=== PATIENT | female | born 1945 | race Caucasian/White ===

== ENCOUNTER 2016-12-19 20:00 | Inpatient (IN) | payer MEDICARE, OTHER ==
[2016-12-19] MEDS ORDERED: SODIUM CHLORIDE 0.9% 1,000 ML IV STA (20:17)
--- NOTE | 2016-12-19 20:22 | ED ---
General Adult HPI - General Chief complaint: Dizziness Stated complaint: heart concerns/weakness Time Seen by Provider: 12/19/16 20:07 Source: patient, RN notes reviewed, old records reviewed Mode of arrival: wheelchair Limitations: no limitations - History of Present Illness Initial comments: This is a 71-year-old female the ER for evaluation of chest pain. Patient is chest pain palpitations that occur with shortness of breath and diaphoresis occasionally starting last night. No fevers no cough no congestion. Patient has history of A. fib with ablation and multiple medication and even a pacemaker which none really seemed to help. Patient has not had an episode for about a year. Patient denies any other contributing factors no new medications no a trial of medications. - Related Data Home Medications Medication Instructions Recorded Confirmed Losartan Potassium 100 mg PO DAILY 02/05/15 09/01/16 Omeprazole [PriLOSEC] 20 mg PO AC-BRKFST 02/05/15 09/01/16 traMADol HCl [Ultram] 50 mg PO DAILY PRN 02/05/15 09/01/16 Furosemide [Lasix] 20 mg PO DAILY 09/01/16 09/01/16 Meclizine [Antivert] 25 mg PO DAILY PRN 09/01/16 09/01/16 Ondansetron [Zofran] 4 mg PO Q6H PRN 09/01/16 09/01/16 Potassium Chloride [K-Tab ER] 10 meq PO DAILY 09/01/16 09/01/16 Propafenone HCl 300 mg PO BID 09/01/16 09/01/16 Zolpidem [Ambien] 5 mg PO HS PRN 09/01/16 09/01/16 Previous Rx's Medication Instructions Recorded Cefuroxime Axetil [Ceftin] 500 mg PO BID #8 tablet 09/04/16 Allergies Allergy/AdvReac Type Severity Reaction Status Date / Time ether Allergy Anaphylaxis Verified 12/19/16 20:05 tetanus and diphtheria Allergy Unknown Verified 12/19/16 20:05 toxoids [tetanus & diphtheria toxoids] codeine AdvReac Nausea Verified 12/19/16 20:05 Review of Systems ROS Statement: Those systems with pertinent positive or pertinent negative responses have been documented in the HPI. ROS Other: All systems not noted in ROS Statement are negative. Past Medical History Past Medical History: Atrial Fibrillation, GERD/Reflux, Hyperlipidemia, Hypertension, Osteoarthritis (OA) Additional Past Medical History / Comment(s): BLADDER CANCER; Small Bowel Obstruction History of Any Multi-Drug Resistant Organisms: None Reported Past Surgical History: Ablation, Bladder Surgery, Heart Catheterization, Hernia Repair, Hysterectomy, Orthopedic Surgery, Pacemaker, Tonsillectomy Additional Past Surgical History / Comment(s): LEFT HIP SURGERY, GRAFTS AND MARNIE , CARDIOVERSION, urostomy Past Anesthesia/Blood Transfusion Reactions: Previous Problems w/ Anesthesia Additional Past Anesthesia/Blood Transfusion Reaction / Comment(s): asthma attack Type of Cardiac Device: Permanent Pacemaker Device Placement Date:: 2006 Past Psychological History: No Psychological Hx Reported Smoking Status: Former smoker Past Alcohol Use History: Rare Past Drug Use History: None Reported - Past Family History Mother Additional Family Medical History / Comment(s): divertic Father Family Medical History: Hyperlipidemia General Exam Limitations: no limitations General appearance: alert, in no apparent distress Head exam: Present: atraumatic, normocephalic, normal inspection Eye exam: Present: normal appearance, PERRL, EOMI. Absent: scleral icterus, conjunctival injection, periorbital swelling ENT exam: Present: normal exam, mucous membranes moist Neck exam: Present: normal inspection. Absent: tenderness, meningismus, lymphadenopathy Respiratory exam: Present: normal lung sounds bilaterally. Absent: respiratory distress, wheezes, rales, rhonchi, stridor Cardiovascular Exam: Present: regular rate, normal rhythm, normal heart sounds. Absent: systolic murmur, diastolic murmur, rubs, gallop, clicks GI/Abdominal exam: Present: soft, normal bowel sounds. Absent: distended, tenderness, guarding, rebound, rigid Extremities exam: Present: normal inspection, full ROM, normal capillary refill. Absent: tenderness, pedal edema, joint swelling, calf tenderness Back exam: Present: normal inspection Neurological exam: Present: alert, oriented X3, CN II-XII intact Psychiatric exam: Present: normal affect, normal mood Skin exam: Present: warm, dry, intact, normal color. Absent: rash Course Vital Signs 12/19/16 20:02 Temperature 98.0 F Pulse Rate 71 Respiratory 18 Rate Blood Pressure 136/82 O2 Sat by Pulse 98 Oximetry - Reevaluation(s) Reevaluation #1: 12/19/16 21:58 Patient still having chest pain, episodic EKG Findings - EKG Comments: EKG Findings:: EKG shows normal sinus rhythm rate of 66, NE 166, QRS 90, QTC 429 Medical Decision Making - Medical Decision Making 71 [id number] chest pain, continuing with chest pain history of A. fib with RVR, patient still chest pain to ER steak EKG and troponin are negative, patient be admitted for cardiac observation, treatment of UTI - Lab Data Result diagrams: 12/19/16 20:37 12/19/16 20:37 Lab Results 12/19/16 12/19/16 12/19/16 Range/Units 20:37 20:37 20:37 WBC 5.1 (3.8-10.6) k/uL RBC 4.52 (3.80-5.40) m/uL Hgb 12.6 (11.4-16.0) gm/dL Hct 38.3 (34.0-46.0) % MCV 84.8 (80.0-100.0) fL MCH 27.9 (25.0-35.0) pg MCHC 32.9 (31.0-37.0) g/dL RDW 13.6 (11.5-15.5) % Plt Count 249 (150-450) k/uL PT (9.0-12.0) sec INR (<1.1) APTT (22.0-30.0) sec Sodium 139 (137-145) mmol/L Potassium 4.9 (3.5-5.1) mmol/L Chloride 105 (98-107) mmol/L Carbon Dioxide 25 (22-30) mmol/L Anion Gap 9 mmol/L BUN 18 H (7-17) mg/dL Creatinine 0.89 (0.52-1.04) mg/dL Est GFR (MDRD) Af Amer >60 (>60 ml/min/1.73 sqM) Est GFR (MDRD) Non-Af >60 (>60 ml/min/1.73 sqM) Glucose 90 (74-99) mg/dL Calcium 9.6 (8.4-10.2) mg/dL Phosphorus 3.6 (2.5-4.5) mg/dL Magnesium 2.2 (1.6-2.3) mg/dL Total Bilirubin 0.7 (0.2-1.3) mg/dL AST 15 (14-36) U/L ALT 22 (9-52) U/L Alkaline Phosphatase 104 (38-126) U/L Total Creatine Kinase 36 (30-135) U/L CK-MB (CK-2) 0.6 (0.0-2.4) ng/mL CK-MB (CK-2) Rel Index 1.7 Troponin I <0.012 (0.000-0.034) ng/mL Total Protein 7.0 (6.3-8.2) g/dL Albumin 3.9 (3.5-5.0) g/dL TSH 1.590 (0.465-4.680) mIU/L Urine Color Urine Appearance (Clear) Urine pH (5.0-8.0) Ur Specific Scott (1.001-1.035) Urine Protein (Negative) Urine Glucose (UA) (Negative) Urine Ketones (Negative) Urine Blood (Negative) Urine Nitrate (Negative) Urine Bilirubin (Negative) Urine Urobilinogen (<2.0) mg/dL Ur Leukocyte Esterase (Negative) Urine RBC (0-5) /hpf Urine WBC (0-5) /hpf Ur Squamous Epith Cells (0-4) /hpf Amorphous Sediment (None) /hpf Urine Bacteria (None) /hpf 12/19/16 12/19/16 Range/Units 20:37 20:37 WBC (3.8-10.6) k/uL RBC (3.80-5.40) m/uL Hgb (11.4-16.0) gm/dL Hct (34.0-46.0) % MCV (80.0-100.0) fL MCH (25.0-35.0) pg MCHC (31.0-37.0) g/dL RDW (11.5-15.5) % Plt Count (150-450) k/uL PT 10.3 (9.0-12.0) sec INR 1.0 (<1.1) APTT 23.4 (22.0-30.0) sec Sodium (137-145) mmol/L Potassium (3.5-5.1) mmol/L Chloride (98-107) mmol/L Carbon Dioxide (22-30) mmol/L Anion Gap mmol/L BUN (7-17) mg/dL Creatinine (0.52-1.04) mg/dL Est GFR (MDRD) Af Amer (>60 ml/min/1.73 sqM) Est GFR (MDRD) Non-Af (>60 ml/min/1.73 sqM) Glucose (74-99) mg/dL Calcium (8.4-10.2) mg/dL Phosphorus (2.5-4.5) mg/dL Magnesium (1.6-2.3) mg/dL Total Bilirubin (0.2-1.3) mg/dL AST (14-36) U/L ALT (9-52) U/L Alkaline Phosphatase (38-126) U/L Total Creatine Kinase (30-135) U/L CK-MB (CK-2) (0.0-2.4) ng/mL CK-MB (CK-2) Rel Index Troponin I (0.000-0.034) ng/mL Total Protein (6.3-8.2) g/dL Albumin (3.5-5.0) g/dL TSH (0.465-4.680) mIU/L Urine Color Yellow Urine Appearance Cloudy H (Clear) Urine pH 7.5 (5.0-8.0) Ur Specific Scott 1.008 (1.001-1.035) Urine Protein Negative (Negative) Urine Glucose (UA) Negative (Negative) Urine Ketones Negative (Negative) Urine Blood Negative (Negative) Urine Nitrate Negative (Negative) Urine Bilirubin Negative (Negative) Urine Urobilinogen <2.0 (<2.0) mg/dL Ur Leukocyte Esterase Large H (Negative) Urine RBC 6 H (0-5) /hpf Urine WBC 83 H (0-5) /hpf Ur Squamous Epith Cells <1 (0-4) /hpf Amorphous Sediment Few H (None) /hpf Urine Bacteria Many H (None) /hpf - Radiology Data Radiology results: report reviewed (Chest x-ray is negative for acute disease), image reviewed Critical Care Time Critical Care Time: Yes Total Critical Care Time: 31 Disposition Clinical Impression: Chest pain, UTI (urinary tract infection) Disposition: ADMITTED IP TO THIS [facility] Condition: Good Referrals: Nita Rice MD [Primary Care Provider] - 1-2 days
--- NOTE | 2016-12-19 21:03 | XR ---
EXAMINATION TYPE: XR chest 2V DATE OF EXAM: 12/19/2016 8:56 PM COMPARISON: 02/23/2015 HISTORY: Weakness TECHNIQUE: Frontal and lateral views of the chest are obtained. FINDINGS: There is no heart failure nor confluent pneumonic infiltrate. There are no hilar masses. T horacic aorta is atheromatous. There is a left axillary pacemaker with the lead tips in the right miriam tricle. There is no pleural effusion. Bony thorax is intact. IMPRESSION: Atheromatous aorta. Hiatal hernia. No active cardiopulmonary disease. No change.
[2016-12-19 21:18] LABS: ALT 22 U/L (9-52); AST 15 U/L (14-36); Alkaline Phosphatase 104 U/L (38-126); Amorphous Sediment,Urine Few /hpf; Anion Gap 9 mmol/L; Appearance,Urine Cloudy (Clear); Bacteria,Urine Many /hpf; Bilirubin,Urine Negative (Negative); Blood Urea Nitrogen 18 mg/dL (7-17); Calcium 9.6 mg/dL (8.4-10.2); Carbon Dioxide 25 mmol/L (22-30); Chloride 105 mmol/L (98-107); Glucose 90 mg/dL (74-99); Glucose,Urine (UA) Negative (Negative); Ketones,Urine Negative (Negative); Leukocyte Esterase,Urine Large (Negative); Magnesium 2.2 mg/dL (1.6-2.3); Nitrite,Urine Negative (Negative); Non-African American GFR(MDRD) >60 (>60 ml/min/1.73 sqM); PH, Urine 7.5 (5.0-8.0); Particle Count 26166; Phosphorous 3.6 mg/dL (2.5-4.5); Potassium 4.9 mmol/L (3.5-5.1); Protein,Urine Negative (Negative); RBC,Urine 6 /hpf (0-5); Sodium 139 mmol/L (137-145); Specific Gravity,Urine 1.008 (1.001-1.035); Squamous Epithelial Cell,Urine <1 /hpf (0-4); Total Bilirubin 0.7 mg/dL (0.2-1.3); UA Billing (MACRO vs. MICRO) MICRO; Urobilinogen,Urine <2.0 mg/dL (<2.0); WBC,Urine 83 /hpf (0-5)
[2016-12-19 21:23] LABS: Creatine Kinase 36 U/L (30-135)
[2016-12-19 21:32] LABS: Aty Lym Flag Slight; CH 27.4; CHCM 32.4; HCT 38.3 % (34.0-46.0); HDW 2.69; HGB 12.6 gm/dL (11.4-16.0); MCH 27.9 pg (25.0-35.0); MCHC 32.9 g/dL (31.0-37.0); MCV 84.8 fL (80.0-100.0); Mean Platelet Volume 8.1; RBC 4.52 m/uL (3.80-5.40); RDW 13.6 % (11.5-15.5); WBC 5.1 k/uL (3.8-10.6); WBC (Perox) 5.17
[2016-12-19 21:36] LABS: Creatine Kinase MB 0.6 ng/mL (0.0-2.4); Troponin I <0.012 ng/mL (0.000-0.034)
[2016-12-19 21:48] LABS: Partial Thromboplastin Time 23.4 sec (22.0-30.0); Prothrombin Time 10.3 sec (9.0-12.0)
[2016-12-19] MEDS ORDERED: NITROGLYCERIN SL TABS 0.4 MG TAB SUBLINGUAL PRN (21:55)
[2016-12-19] MEDS ORDERED: HEPARIN SODIUM,PORCINE 5,000 UNIT/ML 1 ML VIAL IV ONE (21:55)
[2016-12-19] MEDS ORDERED: HEPARIN SODIUM,PORCINE 5,000 UNIT/ML 1 ML VIAL IV PRN (21:55)
[2016-12-19] MEDS ORDERED: ASPIRIN 81 MG CHEW PO STA (21:55)
[2016-12-19] MEDS ORDERED: HEPARIN SODIUM,PORCINE/D5W PMX 25,000 UNIT in DEXTROSE/WATER 1 500ML.BAG IV SCH (22:00)
[2016-12-19 22:07] LABS: Add Differential Manual Differential
[2016-12-19 22:09] LABS: Manual Review Performed; Nucleated Red Blood Cells 0 /100 WBC (0-0); RBC Morphology Normal; Total Cells Counted 100
[2016-12-19] MEDS: SODIUM CHLORIDE 0.9% 1,000 ML IV SCH (22:42)
[2016-12-20 03:56] LABS: Mean Platelet Volume 7.4
[2016-12-20 04:19] LABS: Cholesterol 206 mg/dL (<200); Creatine Kinase 30 U/L (30-135); HDL Cholesterol 49 mg/dL (40-60); Triglycerides 144 mg/dL (<150)
[2016-12-20 04:33] LABS: Creatine Kinase MB 0.5 ng/mL (0.0-2.4); Troponin I <0.012 ng/mL (0.000-0.034)
[2016-12-20 09:53] LABS: Creatine Kinase 29 U/L (30-135)
[2016-12-20 10:07] LABS: Creatine Kinase MB 0.4 ng/mL (0.0-2.4); Troponin I <0.012 ng/mL (0.000-0.034)
--- NOTE | 2016-12-20 11:29 | P.CRDCN ---
History of Present Illness Consult date: 12/20/16 Reason for Consult (text): Chest pain Chief complaint: palpitations, pressure, lightheadedness, nausea History of present illness: This is a pleasant 71-year-old female with a known history of SVT, status post ablation, pacemaker placement, hyperlipidemia, hypertension, bladder CA, urostomy. Presented with complaints of feeling a pressure type palpitation around her heart with lightheadedness, nausea, slight shortness of breath and hearing a pounding in her ear. Chest x-ray on admission showed no acute process. EKG done showed sinus rhythm with incomplete right bundle branch block. Laboratory values show a BUN of 18, creatinine 0.89, troponins less than 0.0123 and an LDL of 128. Patient has been started on atorvastatin 80 mg by mouth daily. she is also been initiated on IV heparin drip. Upon examination , patient is resting comfortably in bed. She does complain of feeling occasional palpitations. Rhythm strips show sinus rhythm with PACs. Past Medical History Past Medical History: Atrial Fibrillation, Cancer, GERD/Reflux, Hyperlipidemia, Hypertension, Osteoarthritis (OA) Additional Past Medical History / Comment(s): bladder cancer with urostomy, Small Bowel Obstruction History of Any Multi-Drug Resistant Organisms: None Reported Past Surgical History: Ablation, Bladder Surgery, Heart Catheterization, Hernia Repair, Hysterectomy, Orthopedic Surgery, Pacemaker, Tonsillectomy Additional Past Surgical History / Comment(s): LEFT HIP SURGERY x 3, GRAFTS AND MARNIE, CARDIOVERSION, urostomy Past Anesthesia/Blood Transfusion Reactions: Previous Problems w/ Anesthesia Additional Past Anesthesia/Blood Transfusion Reaction / Comment(s): asthma attack Type of Cardiac Device: Permanent Pacemaker Device Placement Date:: 2006 Past Psychological History: No Psychological Hx Reported Smoking Status: Former smoker Past Alcohol Use History: Rare Past Drug Use History: None Reported - Past Family History Mother Additional Family Medical History / Comment(s): divertic Father Family Medical History: Hyperlipidemia Medications and Allergies Home Medications Medication Instructions Recorded Confirmed Type Losartan Potassium 100 mg PO DAILY 02/05/15 09/01/16 History Omeprazole [PriLOSEC] 20 mg PO AC-BRKFST 02/05/15 09/01/16 History traMADol HCl [Ultram] 50 mg PO DAILY PRN 02/05/15 09/01/16 History Furosemide [Lasix] 20 mg PO DAILY 09/01/16 09/01/16 History Meclizine [Antivert] 25 mg PO DAILY PRN 09/01/16 09/01/16 History Ondansetron [Zofran] 4 mg PO Q6H PRN 09/01/16 09/01/16 History Potassium Chloride [K-Tab ER] 10 meq PO DAILY 09/01/16 09/01/16 History Propafenone HCl 300 mg PO BID 09/01/16 09/01/16 History Zolpidem [Ambien] 5 mg PO HS PRN 09/01/16 09/01/16 History Metoprolol Tartrate [Lopressor] 25 mg PO DAILY 12/20/16 12/20/16 History Allergies Allergy/AdvReac Type Severity Reaction Status Date / Time ether Allergy Anaphylaxis Verified 12/19/16 20:05 tetanus and diphtheria Allergy Unknown Verified 12/19/16 20:05 toxoids [tetanus & diphtheria toxoids] codeine AdvReac Nausea Verified 12/19/16 20:05 Physical Exam Vitals: Vital Signs Temp Pulse Pulse Resp BP BP Pulse Ox 12/20/16 07:54 98.6 F 64 16 133/67 95 12/20/16 04:00 98.5 F 62 18 118/67 97 12/20/16 00:00 62 16 12/19/16 23:46 98.2 F 64 18 142/86 97 12/19/16 22:38 98.2 F 69 18 139/78 97 Intake and Output 12/19/16 12/20/16 12/20/16 22:59 06:59 14:59 Intake Total 1310 Output Total 550 Balance 760 Intake: Intake, IV Titration 1310 Amount Heparin Sodium,Porcine/ 150 D5w Pmx 25,000 unit In Dextrose/Water 1 500ml. bag @ 12 UNITS/KG/HR 17. 96 mls/hr IV .Q24H ANGEL Rx #:[id number] Sodium Chloride 0.9% 1, 1160 000 ml @ 100 mls/hr IV . Q10H ANGEL Rx#:[id number] Output: Urine 550 Other: Weight 86.5 kg PHYSICAL EXAMINATION: HEENT: [Head is atraumatic, normocephalic. Pupils equal, round. Neck is supple. There is no elevated jugular venous pressure.] HEART EXAMINATION: [Heart sounds regular, S1 and S2 normal. No murmur or gallop heard.] CHEST EXAMINATION:[ Lungs are clear to auscultation and precussion. No chest wall tenderness is noted on palpation or with deep breathing.] ABDOMEN: [ Soft, nontender. Bowel sounds are heard. No organomegaly noted]. EXTREMITIES:[ 2+ peripheral pulses with no evidence of peripheral edema and no calf tenderness noted]. NEUROLOGIC [patient is awake, alert and oriented x3.] . Results 12/20/16 03:38 12/19/16 20:37 Cardiac Enzymes 12/20/16 12/20/16 Range/Units 03:38 09:09 CK-MB (CK-2) 0.5 0.4 (0.0-2.4) ng/mL Troponin I <0.012 <0.012 (0.000-0.034) ng/mL Coagulation 12/20/16 Range/Units 03:38 APTT 32.2 H (22.0-30.0) sec Lipids 12/20/16 Range/Units 03:38 Triglycerides 144 (<150) mg/dL Cholesterol 206 H (<200) mg/dL HDL Cholesterol 49 (40-60) mg/dL CBC 12/20/16 Range/Units 03:38 Plt Count 217 (150-450) k/uL Current Medications Generic Name Dose Route Start Last Admin Trade Name Freq PRN Reason Stop Dose Admin Aspirin 325 mg 12/20/16 09:00 Aspirin PO DAILY [facility] Atorvastatin Calcium 80 mg 12/20/16 09:00 Lipitor PO DAILY [facility] Heparin Sodium (Porcine) 0 unit 12/19/16 21:55 Heparin IV Q6HR PRN Low PTT Protocol Heparin Sodium/Dextrose 25,000 500 mls @ 17.96 mls/hr 12/19/16 22:00 22:44 unit/ IV Solution IV 12 units/kg/hr .Q24H ANGEL 17.96 mls/hr Protocol Administration 12 UNITS/KG/HR Sodium Chloride 1,000 mls @ 100 mls/hr 12/19/16 22:00 12/19/16 22:42 Saline 0.9% IV 100 mls/hr .Q10H ANGEL Administration Ceftriaxone Sodium 1,000 mg/ 50 mls @ 100 mls/hr 12/20/16 11:00 Sodium Chloride IVPB Q24HR [facility] Nitroglycerin 0.4 mg 12/19/16 21:55 Nitrostat SUBLINGUAL Q5M PRN Chest Pain Intake and Output 12/19/16 12/20/16 12/20/16 22:59 06:59 14:59 Intake Total 1310 Output Total 550 Balance 760 Intake: Intake, IV Titration 1310 Amount Heparin Sodium,Porcine/ 150 D5w Pmx 25,000 unit In Dextrose/Water 1 500ml. bag @ 12 UNITS/KG/HR 17. 96 mls/hr IV .Q24H [facility] Rx #:[id number] Sodium Chloride 0.9% 1, 1160 000 ml @ 100 mls/hr IV . Q10H [facility] Rx#:[id number] Output: Urine 550 Other: Weight 86.5 kg 12/20/16 03:38 Assessment and Plan Plan: assessment and plan #1 palpitations, appear to be PACs #2 symptoms of chest discomfort with lightheadedness and nausea, troponins negative 3 #3 UTI #4 hyperlipidemia #5 history of pacemaker implant From cardiology's perspective, we will obtain a 2-D echo. Stop IV heparin. We will resume patient's propafenone and increase metoprolol to 25 mg by mouth twice a day. We will continue to follow the patient and provide further recommendations accordingly. [employer] note has been reviewed, I agree with a documented findings and plan of care. Patient was seen and examined.
[2016-12-20] MEDS: METOPROLOL TARTRATE 25 MG TAB PO SCH ×2 (12:38→20:55)
[2016-12-20] MEDS: PROPAFENONE 150 MG TAB PO SCH ×2 (12:38→20:54)
[2016-12-20] MEDS ORDERED: MECLIZINE 25 MG TAB PO PRN (13:30)
[2016-12-20] MEDS ORDERED: ZOLPIDEM 5 MG TAB PO PRN (13:30)
[2016-12-20] MEDS ORDERED: ONDANSETRON 4 MG TAB PO PRN (13:30)
[2016-12-20] MEDS ORDERED: traMADol 50 MG TAB PO PRN (13:30)
[2016-12-20] MEDS ORDERED: PROPAFENONE HCL 300 MG PO SCH (13:30)
[2016-12-20] MEDS: POTASSIUM CHLORIDE ER 10 MEQ TAB.ER.PRT PO SCH (14:36)
[2016-12-20] MEDS: ATORVASTATIN 80 MG TAB PO SCH (14:36)
[2016-12-20] MEDS: FUROSEMIDE 20 MG TAB PO SCH (14:36)
[2016-12-20] MEDS: ASPIRIN 325 MG TAB PO SCH (14:37)
[2016-12-20] MEDS: LOSARTAN 50 MG TAB PO SCH (14:37)
--- NOTE | 2016-12-20 16:12 | HP ---
DATE OF ADMISSION: CHIEF COMPLAINT: Chest pain, UTI. HISTORY OF PRESENT ILLNESS: This 71-year-old woman with a past history of multiple medical problems including atrial fibrillation, history of GERD, hypertension, hyperlipidemia, history of DJD, history of cardiac ablation, history of cardiac catheterization being followed by Dr. Rice in the outpatient setting is complaining of chest pain. The pain is felt mostly in the anterior part of the chest, which is pressure type of character. The patient also feeling skipped beats. Patient also had some palpitation, lightheaded and nausea along with the feeling and the patient came to the [facility] and admitted for further evaluation. The EKG showed multiple ectopic, possibly PACs; almost in the form of bigeminy. The patient admitted for further evaluation. There is no history of any fever, rigors. No history of headache, loss of consciousness or seizures. As mentioned earlier, patient is receiving IV antibiotics for possible UTI. PAST MEDICAL HISTORY: History of atrial fibrillation, history of GERD, hypertension, hyperlipidemia, history of DJD, history of bladder cancer with urostomy, ablation, cardiac catheterization. Medications prior to admission include the home medications are: 1. Ultram 50 mg daily p.r.n. 2. Ambien 5 mg q.h.s. p.r.n. 3. Propafenone 300 mg p.o. b.i.d. 4. K-Tab ER 10 mEq p.o. daily. 5. Zofran 4 mg q.6 p.r.n. 6. Prilosec 20 mg p.o. q.48 hours. 7. Lopressor 25 mg p.o. daily. 8. Antivert 25 mg daily p.r.n. 9. Losartan 100 mg p.o. daily. 10. Lasix 20 mg p.o. daily. Allergies are ETHER, TETANUS and DIPHTHERIA TOXOIDS and CODEINE. FAMILY HISTORY: History of hyperlipidemia, history of diverticulosis, diverticulitis. SOCIAL HISTORY: Previous history of smoking. No history of current smoking or alcohol intake. REVIEW OF SYSTEMS: ENT: No diminished hearing or diminished vision. CARDIOVASCULAR: As mentioned earlier. RESPIRATORY: As mentioned earlier. GI: As mentioned earlier.. : No dysuria. NERVOUS SYSTEM: No numbness or weakness. ALLERGY/IMMUNOLOGY: No asthma or hayfever. MUSCULOSKELETAL: As mentioned earlier. HEMATOLOGICAL: No history of anemia. ENDOCRINE: No history of diabetes, hypothyroidism. CONSTITUTIONAL: As mentioned earlier. DERMATOLOGY: Negative. RHEUMATOLOGICAL: Negative. PSYCHIATRY: As mentioned earlier.. PHYSICAL EXAMINATION: The patient is alert and oriented x3. Pulse 76, blood pressure 153/79, respirations 18, temperature 98.5, pulse ox 95% on room air. HEENT: Conjunctivae normal. Oral mucosa moist. NECK: No jugular venous distention. No carotid bruit. No lymph node enlargement. CARDIOVASCULAR: S1 and S2, muffled. No S3, no S4. RESPIRATORY: Breath sounds diminished at the bases. Bilateral scattered rhonchi and crackles. Respiratory wheezing also present. ABDOMEN: Soft, nontender. No mass palpable. LEGS: No edema, no swelling. NERVOUS SYSTEM: Higher function as mentioned. Moves all 4 limbs. No focal motor or sensory deficits. LYMPHATICS: No lymphadenopathy of neck, axillae or groin. SKIN: No ulcers, rashes or bleeding. Labs are CBC within normal limits. INR is 1. BUN is 18. Cholesterol is 206, LDL is 128. UA noted, 83 WBCs. ASSESSMENT: 1. Chest pain, possible angina. 2. Hyperlipidemia. 3. Acute urinary tract infection, present on admission. 4. Status post bladder resection for bladder cancer, urostomy. 5. History of atrial fibrillation. 6. History of gastroesophageal reflux disease. 7. Hypertension. 8. Hyperlipidemia. 9. History of degenerative joint disease. 10. History of small bowel obstruction. 11. History of cardiac catheterization. 12. History of pacemaker. 13. Remote history nicotine dependence. 14. History of multiple episodes of partial small bowel obstruction. 15. History of asthma. 16. History of supraventricular tachycardia. 17. FULL CODE. RECOMMENDATIONS AND DISCUSSION: This 71-year-old woman who presented with multiple complex medical issues, will monitor the patient closely. Continue the current medications. Continue symptomatic treatment. Will obtain a cardiology consultation, workup also. Otherwise, continue to monitor and the electrolytes are being monitored. The patient also had hyperlipidemia. Patient is on Lipitor currently. Prognosis guarded because of multiple complex medical issues. Further recommendations to follow. A copy of dictation forwarded to Dr. Rice who is the primary physician. [facility] CENTER[facility]iri
[2016-12-20] MEDS: SODIUM CHLORIDE 0.9% 1,000 ML IV SCH ×2 (19:34)
[2016-12-21] MEDS: SODIUM CHLORIDE 0.9% 1,000 ML IV SCH (05:08)
[2016-12-21 07:30] LABS: Basophils % (A) 1 %; CH 27.3; CHCM 31.5; Eosinophils # (A) 0.2 k/uL (0-0.7); Eosinophils % (A) 3 %; HCT 34.8 % (34.0-46.0); HDW 2.66; HGB 11.1 gm/dL (11.4-16.0); Hypochromasia Slight; Luc # (Auto) 0.24; Luc % (Auto) 4; Lymphocytes # (A) 0.9 k/uL (1.0-4.8); Lymphocytes % (A) 16 %; MCH 27.8 pg (25.0-35.0); MCHC 31.9 g/dL (31.0-37.0); MCV 87.1 fL (80.0-100.0); Mean Platelet Volume 8.6; Monocytes # (A) 0.4 k/uL (0-1.0); Monocytes % (A) 6 %; Neutrophils % (A) 70 %; RDW 13.6 % (11.5-15.5); WBC 5.8 k/uL (3.8-10.6); WBC (Perox) 6.17
[2016-12-21] MEDS ORDERED: PANTOPRAZOLE 40 MG TABLET PO SCH (07:30)
[2016-12-21 07:48] VITALS: RESP 16
[2016-12-21 07:55] LABS: Anion Gap 9 mmol/L; Blood Urea Nitrogen 22 mg/dL (7-17); Calcium 9.2 mg/dL (8.4-10.2); Carbon Dioxide 21 mmol/L (22-30); Chloride 108 mmol/L (98-107); Glucose 96 mg/dL (74-99); Non-African American GFR(MDRD) >60 (>60 ml/min/1.73 sqM); Potassium 5.2 mmol/L (3.5-5.1); Sodium 138 mmol/L (137-145)
[2016-12-21] MEDS: PROPAFENONE 150 MG TAB PO SCH (08:27)
[2016-12-21] MEDS: ATORVASTATIN 80 MG TAB PO SCH (08:28)
[2016-12-21] MEDS: FUROSEMIDE 20 MG TAB PO SCH (08:28)
[2016-12-21] MEDS: LOSARTAN 50 MG TAB PO SCH (08:28)
[2016-12-21] MEDS: ASPIRIN 325 MG TAB PO SCH (08:28)
[2016-12-21] MEDS: POTASSIUM CHLORIDE ER 10 MEQ TAB.ER.PRT PO SCH (08:28)
[2016-12-21] MEDS: METOPROLOL TARTRATE 25 MG TAB PO SCH (08:28)
--- NOTE | 2016-12-21 10:31 | P.PN ---
Subjective This is a pleasant 71-year-old female with a known history of SVT, status post ablation, pacemaker placement, hyperlipidemia, hypertension, bladder CA, urostomy. Presented with complaints of feeling a pressure type palpitations. EKG revealed sinus rhythm with incomplete right bundle branch block pattern. Patient was also noted to have PACs on the monitor. Rythmol was resumed yesterday and patient's dose of metoprolol tartrate was increased. She has had no further episodes of PACs on the monitor, she feels well this morning. Denies any palpitations, no chest discomfort. She did have some mild nausea through the night. Objective - Vital Signs Vital signs: Vital Signs Temp 97.9 F 12/21/16 07:47 Pulse 65 12/21/16 07:47 Resp 16 12/21/16 07:47 BP 129/62 12/21/16 07:47 Pulse Ox 95 12/21/16 07:47 Intake & Output 12/20/16 12/21/16 12/21/16 17:59 06:59 18:59 Intake Total 240 Balance 240 Intake: Oral 240 Other: Voiding Method Ileal Conduit (Right) - Exam PHYSICAL EXAMINATION: HEENT: Head is atraumatic, normocephalic. Pupils equal, round. Neck is supple. There is no elevated jugular venous pressure. HEART EXAMINATION: Heart S1, S2 normal. No murmur or gallop heard. CHEST EXAMINATION: Lungs are clear to auscultation and precussion. No chest wall tenderness is noted on palpation or with deep breathing. ABDOMEN: Soft, nontender. Bowel sounds are heard. No organomegaly noted. EXTREMITIES: 2+ peripheral pulses with no evidence of peripheral edema and no calf tenderness noted. NEUROLOGIC patient is awake, alert and oriented -3. . - Labs CBC & Chem 7: 12/21/16 06:24 12/21/16 06:24 Assessment and Plan (1) PAC (premature atrial contraction) Status: Acute (2) HTN (hypertension) Status: Acute (3) Hyperlipemia Status: Acute (4) UTI (urinary tract infection) Status: Acute (5) Pacemaker Status: Acute (6) Chest pain Status: Acute Plan: From cardiology's perspective, patient may be able to be discharged home today. We will make her a follow-up appointment to see Dr. VC Abreu in the office post discharge. She will continue on the current dose of Rythmol along with metoprolol tartrate 25 mg one tablet by mouth twice a day and the other medications she came in on. DNP note has been reviewed, I agree with a documented findings and plan of care. Patient was seen and examined.
[2016-12-21 11:42] VITALS: BP 106/74; PULSE 60; TEMP 98.3
[2016-12-22] MEDS ORDERED: ASPIRIN 81 MG CHEW PO SCH (09:00)
--- NOTE | 2016-12-22 11:19 | DS ---
DATE OF ADMISSION: 12/21/2016 DATE OF DISCHARGE: 12/21/2016 DATE OF SERVICE: 12/21/2016 FINAL DIAGNOSES: 1. Chest pain, possible unstable angina, myocardial infarction ruled out. 2. Hyperlipidemia. 3. Acute urinary tract infection present on admission. 4. Status post bladder resection for bladder cancer urostomy. 5. History of atrial fibrillation, rate controlled. 6. History of gastroesophageal reflux disease. 7. Hypertension. 8. Hyperlipidemia. 9. History of degenerative joint disease. 10. History of small bowel obstruction. 11. History of cardiac catheterization. 12. History of pacemaker. 13. Remote history of nicotine dependence. 14. History of multiple episodes of partial small bowel obstruction. 15. History of asthma. 16. History of supraventricular tachycardia. 17. FULL CODE. DISCHARGE DISPOSITION: The patient will be discharged in a stable condition with guarded prognosis. Cardiology cleared the patient for discharge. HISTORY OF PRESENT ILLNESS: In this 71-year-old woman with a past medical history of multiple medical problems being followed by Dr. Rice in the outpatient setting admitted with the chest pain and UTI. Treated symptomatically. Cardiology saw the patient. Recommended outpatient followup. On exam, vitals are stable. CARDIOVASCULAR SYSTEM: S1, S2 muffled. RESPIRATORY: Breath sounds diminished at the bases. ABDOMEN: Soft. NERVOUS SYSTEM: No focal deficits. DISCHARGE ADVICE: 1. Diet is cardiac. 2. Activity limited until followup. 3. Followup with Cardiology as advised for possible stress test outpatient. 4. Follow up with Dr. Rice in 2 to 3 days. MEDICATIONS: 1. Aspirin 81 mg p.o. daily. 2. Lipitor 40 mg p.o. daily. 3. Ceftin 500 mg p.o. b.i.d. for 4 more days. 4. Lasix 20 mg p.o. daily. 5. Losartan 100 mg p.o. daily. 6. Antivert 25 mg daily p.r.n. 7. Lopressor 25 mg p.o. b.i.d. 8. Prilosec 20 mg p.o. q.48 hours. 9. Zofran 4 mg q.6 p.r.n. 10. K-Tab ER 10 mEq p.o. daily. 11. Propafenone 300 mg p.o. b.i.d. 12. Ambien 5 mg q.h.s. p.r.n. 13. Ultram 50 mg p.o. daily. Once again, the patient will be discharged in a stable condition with guarded prognosis.
--- NOTE | 2016-12-22 11:58 | ECHOF ---
Referral Reason:cpp MEASUREMENTS -------- HEIGHT: 162.6 cm WEIGHT: 89.8 kg BP: IVSd: 1.2 cm (0.6 - 1.1) LVIDd: 4.4 cm (3.9 - 5.3) LVPWd: 1.1 cm (0.6 - 1.1) IVSs: 1.3 cm LVIDs: 3.8 cm LVPWs: 1.0 cm LA Diam: 4.4 cm (2.7 - 3.8) LAESV Index (A-L): 30.74 ml/m Ao Diam: 3.2 cm (2.0 - 3.7) AV Cusp: 2.0 cm (1.5 - 2.6) LA Diam: 4.5 cm (2.7 - 3.8) MV EXCURSION: 19.436 mm (> 18.000) MV EF SLOPE: 89 mm/s (70 - 150) EPSS: 0.6 cm MV E Donell: 0.62 m/s MV DecT: 206 ms MV A Donell: 0.76 m/s MV E/A Ratio: 0.81 RAP: 5.00 mmHg RVSP: 39.21 mmHg FINDINGS -------- Sinus rhythm. This was a technically adequate study. There is mild concentric left ventricular hypertrophy. Overall left ventricular systolic function is normal with, an EF between 55 - 60 %. The right ventricle is normal in size. LA is moderately dilated 34-39 ml/m2 The right atrial size is normal. There is mild aortic valve sclerosis. There is no evidence of aortic regurgitation. Mild mitral annular calcification present. Mild mitral regurgitation is present. Mild tricuspid regurgitation present. There is mild pulmonary hypertension. The right ventricular systolic pressure, as measured by Doppler, is 39.21mmHg. There is no pulmonic regurgitation present. The aortic root size is normal. There is no pericardial effusion. CONCLUSIONS -------- 1. There is mild concentric left ventricular hypertrophy. 2. Overall left ventricular systolic function is normal with, an EF between 55 - 60 %. 3. LA is moderately dilated 34-39 ml/m2 4. There is mild aortic valve sclerosis. 5. Mild mitral annular calcification present. 6. Mild mitral regurgitation is present. 7. Mild tricuspid regurgitation present. 8. There is mild pulmonary hypertension. 9. The right ventricular systolic pressure, as measured by Doppler, is 39.21mmHg. DOT NET ARCHITECT: Liliane Castillo RDCS
== END 2016-12-21 14:32 | disposition home or self-care (01) | DRG 311 ==
LOC: EC 20:00 → 3OBS 21:55 → OBSVTOIN 12-21 07:59
PROVIDERS: ADMIT Hospitalist; ATTEND Hospitalist
DX: I20.0 Unstable angina (principal); I48.91 Unspecified atrial fibrillation; N39.0 Urinary tract infection, site not specified; Z93.6 Other artificial openings of urinary tract status; I10 Essential (primary) hypertension; I45.10 Unspecified right bundle-branch block; E78.5 Hyperlipidemia, unspecified; I49.1 Atrial premature depolarization; J45.909 Unspecified asthma, uncomplicated; K21.9 Gastro-esophageal reflux disease without esophagitis; Z79.899 Other long term (current) drug therapy; Z85.068 Personal history of other malignant neoplasm of small intestine; Z85.51 Personal history of malignant neoplasm of bladder; Z87.891 Personal history of nicotine dependence; Z95.0 Presence of cardiac pacemaker; Z88.4 Allergy status to anesthetic agent; Z88.5 Allergy status to narcotic agent; Z88.7 Allergy status to serum and vaccine
CPT/HCPCS: 36415; 71020; 80048; 80053; 80061; 81001; 82550; 82553; 83735; 84100; 84443; 84484; 85025; 85049; 85610; 85730; 87077; 87086; 87186; 93005; 93306; 96361; 96365; 96366; 96367; 96368; 96376; 99291

== ENCOUNTER 2018-10-22 22:34 | Inpatient (IN) | payer MEDICARE, OTHER ==
[2018-10-22] MEDS ORDERED: ONDANSETRON 4 MG/2 ML VIAL IVP STA (23:20)
[2018-10-22] MEDS ORDERED: SODIUM CHLORIDE 0.9% 500 ML 500 ML IV STA (23:20)
[2018-10-22] MEDS: MORPHINE SULFATE 4 MG/ML SYRINGE IV STA (23:33)
[2018-10-22 23:51] LABS: Basophils # (A) 0.1 k/uL (0-0.2); Basophils % (A) 0 %; Eosinophils # (A) 0.2 k/uL (0-0.7); Eosinophils % (A) 2 %; HCT 38.8 % (34.0-46.0); HGB 12.5 gm/dL (11.4-16.0); Lymphocytes # (A) 0.9 k/uL (1.0-4.8); Lymphocytes % (A) 8 %; MCH 27.4 pg (25.0-35.0); MCHC 32.3 g/dL (31.0-37.0); MCV 84.8 fL (80.0-100.0); Mean Platelet Volume 7.5; Monocytes # (A) 0.5 k/uL (0-1.0); Monocytes % (A) 5 %; Neutrophils # (A) 8.9 k/uL (1.3-7.7); Neutrophils % (A) 82 %; Platelet Count 256 k/uL (150-450); RBC 4.57 m/uL (3.80-5.40); RDW 13.7 % (11.5-15.5); WBC 10.8 k/uL (3.8-10.6)
[2018-10-23 00:06] LABS: Albumin 4.1 g/dL (3.5-5.0); Calcium 10.2 mg/dL (8.4-10.2); Potassium 4.8 mmol/L (3.5-5.1); Total Bilirubin 0.7 mg/dL (0.2-1.3); Total Protein 7.4 g/dL (6.3-8.2)
[2018-10-23 00:21] LABS: Appearance,Urine Cloudy (Clear); Bacteria,Urine Rare /hpf; Bilirubin,Urine Negative (Negative); Blood,Urine Negative (Negative); Color,Urine Light Yellow; Glucose,Urine (UA) Negative (Negative); Hyaline Casts,Urine 3 /lpf (0-2); Ketones,Urine Negative (Negative); Leukocyte Esterase,Urine Negative (Negative); Nitrite,Urine Positive (Negative); Protein,Urine Negative (Negative); RBC,Urine 2 /hpf (0-5); Specific Gravity,Urine 1.009 (1.001-1.035); Urobilinogen,Urine <2.0 mg/dL (<2.0); WBC,Urine 6 /hpf (0-5)
--- NOTE | 2018-10-23 00:55 | CT ---
EXAMINATION TYPE: CT abdomen pelvis w con DATE OF EXAM: 10/23/2018 COMPARISON: 09/01/2016 HISTORY: Lower abd pain CT DLP: 1062.3 mGycm Automated exposure control for dose reduction was used. TECHNIQUE: Helical acquisition of images was performed from the lung bases through the pelvis. CONTRAST: Performed without Oral Contrast and with IV Contrast, patient injected with 80 mL of Isovue 300. FINDINGS: There is moderate hiatal hernia. There is minimal subsegmental atelectasis at the right lung base. Th ere is no pleural effusion. Heart size is normal. Liver shows no focal defect. Gallbladder appears normal. Bile ducts are not dilated. Spleen appears n ormal. There is no pancreatic mass. There is 2.6 cm mass on the left adrenal gland that has intermediate to high attenuation. Right adren al gland appears normal. There is significant cortical thinning right kidney. There is right-sided mi ld hydronephrosis. There is ileal conduit. The left kidney has normal size and contour with no hydron ephrosis. The delayed images show contrast in both kidneys and more on the left side. There is no ret roperitoneal adenopathy. There are some mildly distended fluid-filled loops of small bowel in the mid abdomen. These are dilated up to 3.5 cm. There fecal pattern large bowel is fairly normal. There is no free fluid in the pelvis. I see no free air. There are few sigmoid diverticula without evidence of diverticulitis. There is no mesenteric edema. The distal small bowel is not dilated. There is a gomez sition point of the small bowel at the suture Site of anastomosis and suture in the mid abdomen on ax ial image 53. I see no focal bony destructive process. There is significant hip dysplasia on the right side with shallow acetabulum and deformity. There is left hip prosthesis. IMPRESSION: DILATED SMALL BOWEL SUGGESTIVE OF PARTIAL MECHANICAL OBSTRUCTION . THIS IS SIMILAR IN APPEARANCE TO O LD CT SCAN. NO FREE AIR. NO CHANGE IN THE APPEARANCE OF THE KIDNEYS COMPARED TO OLD EXAM. Left adrena l mass unchanged that suggest benign disease.
--- NOTE | 2018-10-23 01:29 | ED ---
Abdominal Pain HPI - General Chief Complaint: Abdominal Pain Stated Complaint: Abdominal Pain Time Seen by Provider: 10/22/18 23:13 Source: patient Mode of arrival: EMS Limitations: no limitations - History of Present Illness Initial Comments: 72-year-old female patient presents to the emergency department today for evaluation of upper abdominal pain and vomiting. Patient states that symptoms started earlier today. States that she has now passed gas in the last several hours. States that she did have a bowel movement this morning that was normal for her. The patient states she does have history of small bowel obstruction and this feels similar to when she had the past. She denies any fevers or chills. She does have urostomy that she has had infection in the past. Patient denies any recent rash, shortness breath, chest pain, diarrhea, constipation, back pain, numbness, tingling, dizziness, weakness, hematuria, headache, visual changes, or any other complaints. - Related Data Home Medications Medication Instructions Recorded Confirmed Losartan Potassium 100 mg PO DAILY 02/05/15 10/22/18 Omeprazole [PriLOSEC] 20 mg PO Q48H 02/05/15 10/22/18 traMADol HCl [Ultram] 50 mg PO DAILY PRN 02/05/15 10/22/18 Furosemide [Lasix] 20 mg PO BID 09/01/16 10/22/18 Meclizine [Antivert] 25 mg PO DAILY PRN 09/01/16 10/22/18 Ondansetron [Zofran] 4 mg PO Q6H PRN 09/01/16 10/22/18 Potassium Chloride [K-Tab ER] 10 meq PO DAILY 09/01/16 10/22/18 Propafenone HCl 150 mg PO BID 09/01/16 10/22/18 Zolpidem [Ambien] 5 mg PO HS PRN 09/01/16 10/22/18 Previous Rx's Medication Instructions Recorded Metoprolol Tartrate [Lopressor] 25 mg PO BID #60 tab 12/21/16 Allergies Allergy/AdvReac Type Severity Reaction Status Date / Time ether Allergy Anaphylaxis Verified 10/22/18 22:44 tetanus and diphtheria Allergy Unknown Verified 10/22/18 22:44 toxoids [tetanus & diphtheria toxoids] codeine AdvReac Nausea Verified 10/22/18 22:44 Review of Systems ROS Statement: Those systems with pertinent positive or pertinent negative responses have been documented in the HPI. ROS Other: All systems not noted in ROS Statement are negative. Past Medical History Past Medical History: Atrial Fibrillation, Cancer, GERD/Reflux, Hyperlipidemia, Hypertension, Osteoarthritis (OA) Additional Past Medical History / Comment(s): bladder cancer with urostomy, Small Bowel Obstruction, vertigo History of Any Multi-Drug Resistant Organisms: None Reported Past Surgical History: Ablation, Bladder Surgery, Heart Catheterization, Hernia Repair, Hysterectomy, Orthopedic Surgery, Pacemaker, Tonsillectomy Additional Past Surgical History / Comment(s): LEFT HIP SURGERY x 3, GRAFTS AND MARNIE, CARDIOVERSION, urostomy Past Anesthesia/Blood Transfusion Reactions: Previous Problems w/ Anesthesia Additional Past Anesthesia/Blood Transfusion Reaction / Comment(s): asthma attack Type of Cardiac Device: Permanent Pacemaker Device Placement Date:: 2006 Past Psychological History: No Psychological Hx Reported Smoking Status: Former smoker Past Alcohol Use History: None Reported Past Drug Use History: None Reported - Past Family History Mother Additional Family Medical History / Comment(s): divertic Father Family Medical History: Hyperlipidemia General Exam Limitations: no limitations General appearance: alert, in no apparent distress, other (Physical well- developed, well-nourished adult female patient in no acute distress. Vital signs upon presentation are temperature 97.9F, pulse 83, respirations 18, blood pressure 158/88, pulse ox 97% on room air.) Eye exam: Present: normal appearance, PERRL, EOMI. Absent: scleral icterus, conjunctival injection, periorbital swelling ENT exam: Present: normal exam, normal oropharynx, mucous membranes moist Respiratory exam: Present: normal lung sounds bilaterally. Absent: respiratory distress, wheezes, rales, rhonchi, stridor Cardiovascular Exam: Present: regular rate, normal rhythm, normal heart sounds. Absent: systolic murmur, diastolic murmur, rubs, gallop, clicks GI/Abdominal exam: Present: soft, tenderness (Upper abdominal tenderness), normal bowel sounds. Absent: distended, guarding, rebound, rigid Neurological exam: Present: alert, oriented X3, CN II-XII intact Psychiatric exam: Present: normal affect, normal mood Skin exam: Present: warm, dry, intact, normal color. Absent: rash Course Vital Signs 10/22/18 10/23/18 22:39 00:52 Temperature 97.9 F Pulse Rate 83 62 Respiratory 18 18 Rate Blood Pressure 158/88 143/77 O2 Sat by Pulse 97 98 Oximetry Medical Decision Making - Medical Decision Making 72-year-old female patient presents to the emergency department today for evaluation of upper abdominal pain and vomiting. Physical examination did reveal upper abdominal tenderness. CT abdomen and pelvis was obtained and did reveal evidence of partial small bowel obstruction. Patient symptoms are consistent with this. We will admit to the hospital for further evaluation by surgical services and bowel rest. IV fluids we provided. Patient is aware of and agrees with the plan. - Lab Data Result diagrams: 10/22/18 22:55 10/22/18 22:55 Lab Results 10/22/18 10/22/18 10/22/18 Range/Units 22:55 22:55 22:55 WBC 10.8 H (3.8-10.6) k/uL RBC 4.57 (3.80-5.40) m/uL Hgb 12.5 (11.4-16.0) gm/dL Hct 38.8 (34.0-46.0) % MCV 84.8 (80.0-100.0) fL MCH 27.4 (25.0-35.0) pg MCHC 32.3 (31.0-37.0) g/dL RDW 13.7 (11.5-15.5) % Plt Count 256 (150-450) k/uL Neutrophils % 82 % Lymphocytes % 8 % Monocytes % 5 % Eosinophils % 2 % Basophils % 0 % Neutrophils # 8.9 H (1.3-7.7) k/uL Lymphocytes # 0.9 L (1.0-4.8) k/uL Monocytes # 0.5 (0-1.0) k/uL Eosinophils # 0.2 (0-0.7) k/uL Basophils # 0.1 (0-0.2) k/uL Sodium 138 (137-145) mmol/L Potassium 4.8 (3.5-5.1) mmol/L Chloride 105 (98-107) mmol/L Carbon Dioxide 26 (22-30) mmol/L Anion Gap 7 mmol/L BUN 21 H (7-17) mg/dL Creatinine 1.07 H (0.52-1.04) mg/dL Est GFR (CKD-EPI)AfAm 60 (>60 ml/min/1.73 sqM) Est GFR (CKD-EPI)NonAf 52 (>60 ml/min/1.73 sqM) Glucose 108 H (74-99) mg/dL Plasma Lactic Acid Aidan 1.2 (0.7-2.0) mmol/L Calcium 10.2 (8.4-10.2) mg/dL Total Bilirubin 0.7 (0.2-1.3) mg/dL AST 31 (14-36) U/L ALT 28 (9-52) U/L Alkaline Phosphatase 127 H (38-126) U/L Total Protein 7.4 (6.3-8.2) g/dL Albumin 4.1 (3.5-5.0) g/dL Amylase 72 (30-110) U/L Lipase 359 H (23-300) U/L Urine Color Urine Appearance (Clear) Urine pH (5.0-8.0) Ur Specific [place] (1.001-1.035) Urine Protein (Negative) Urine Glucose (UA) (Negative) Urine Ketones (Negative) Urine Blood (Negative) Urine Nitrite (Negative) Urine Bilirubin (Negative) Urine Urobilinogen (<2.0) mg/dL Ur Leukocyte Esterase (Negative) Urine RBC (0-5) /hpf Urine WBC (0-5) /hpf Urine Bacteria (None) /hpf Hyaline Casts (0-2) /lpf 10/23/18 Range/Units 00:02 WBC (3.8-10.6) k/uL RBC (3.80-5.40) m/uL Hgb (11.4-16.0) gm/dL Hct (34.0-46.0) % MCV (80.0-100.0) fL MCH (25.0-35.0) pg MCHC (31.0-37.0) g/dL RDW (11.5-15.5) % Plt Count (150-450) k/uL Neutrophils % % Lymphocytes % % Monocytes % % Eosinophils % % Basophils % % Neutrophils # (1.3-7.7) k/uL Lymphocytes # (1.0-4.8) k/uL Monocytes # (0-1.0) k/uL Eosinophils # (0-0.7) k/uL Basophils # (0-0.2) k/uL Sodium (137-145) mmol/L Potassium (3.5-5.1) mmol/L Chloride (98-107) mmol/L Carbon Dioxide (22-30) mmol/L Anion Gap mmol/L BUN (7-17) mg/dL Creatinine (0.52-1.04) mg/dL Est GFR (CKD-EPI)AfAm (>60 ml/min/1.73 sqM) Est GFR (CKD-EPI)NonAf (>60 ml/min/1.73 sqM) Glucose (74-99) mg/dL Plasma Lactic Acid Aidan (0.7-2.0) mmol/L Calcium (8.4-10.2) mg/dL Total Bilirubin (0.2-1.3) mg/dL AST (14-36) U/L ALT (9-52) U/L Alkaline Phosphatase (38-126) U/L Total Protein (6.3-8.2) g/dL Albumin (3.5-5.0) g/dL Amylase (30-110) U/L Lipase (23-300) U/L Urine Color Light Yellow Urine Appearance Cloudy H (Clear) Urine pH 8.0 (5.0-8.0) Ur Specific [place] 1.009 (1.001-1.035) Urine Protein Negative (Negative) Urine Glucose (UA) Negative (Negative) Urine Ketones Negative (Negative) Urine Blood Negative (Negative) Urine Nitrite Positive H (Negative) Urine Bilirubin Negative (Negative) Urine Urobilinogen <2.0 (<2.0) mg/dL Ur Leukocyte Esterase Negative (Negative) Urine RBC 2 (0-5) /hpf Urine WBC 6 H (0-5) /hpf Urine Bacteria Rare H (None) /hpf Hyaline Casts 3 H (0-2) /lpf - Radiology Data Radiology results: report reviewed, image reviewed CT of the pelvis with contrast was obtained. Report was reviewed in its entirety. Impression by Dr. Carbone shows dilated small bowel suggestive of partial mechanical obstruction. This is similar to parents old computed tomography scan. No free air. No change in the appearance the kidneys compared to old exam. Left adrenal mass unchanged that suggests benign disease. Disposition Clinical Impression: Partial small bowel obstruction Disposition: ADMITTED IP TO THIS [facility] Condition: Serious Referrals: Nita Rice MD [Primary Care Provider] - 1-2 days Decision to Admit Reason: Admit from EC Decision Date: 10/23/18 Decision Time: 01:57
[2018-10-23] MEDS ORDERED: NALOXONE 0.4 MG/ML 1 ML VIAL IV PRN (01:50)
[2018-10-23] MEDS ORDERED: ZOLPIDEM 5 MG TAB PO PRN (01:52)
[2018-10-23] MEDS ORDERED: MECLIZINE 25 MG TAB PO PRN (01:52)
[2018-10-23] MEDS ORDERED: PANTOPRAZOLE 40 MG TABLET PO SCH (02:00)
[2018-10-23] MEDS: MORPHINE SULFATE 4 MG/ML SYRINGE IV STA (02:04)
[2018-10-23] MEDS: ONDANSETRON 4 MG/2 ML VIAL IVP PRN ×4 (02:04→20:29)
[2018-10-23] MEDS: SODIUM CHLORIDE 0.9% 1,000 ML IV SCH ×2 (02:09→15:27)
[2018-10-23] MEDS: MORPHINE SULFATE 4 MG/ML SYRINGE IVP PRN ×4 (05:23→20:29)
[2018-10-23] MEDS: PROPAFENONE 150 MG TAB PO SCH ×2 (08:58→20:27)
[2018-10-23] MEDS: FUROSEMIDE 20 MG TAB PO SCH ×2 (08:58→20:27)
[2018-10-23] MEDS: METOPROLOL TARTRATE 25 MG TAB PO SCH ×2 (08:58→20:27)
[2018-10-23] MEDS: POTASSIUM CHLORIDE ER 10 MEQ TAB.ER.PRT PO SCH (08:58)
[2018-10-23] MEDS: LOSARTAN 50 MG TAB PO SCH (08:58)
--- NOTE | 2018-10-23 11:07 | P.GSCN ---
History of Present Illness Consult date: 10/23/18 History of present illness: 72-year-old female presents to the emergency department with complaints of abdominal pain, nausea and vomiting. The patient states that she has had these issues previously and is noted to have a history of multiple small bowel obstructions. The patient's abdominal surgery history is positive for a urostomy secondary to cystectomy due to bladder cancer. The patient denies any changes with her urostomy output. She states that her last bowel function was approximately 36-48 hours ago. Since that time she has not had any flatus or bowel movements. She has had multiple emesis episodes. She states she also is having abdominal pain. She states that the distention within her abdomen has mildly improved since her presentation to the hospital. She denies any fevers, chills, chest pain or shortness of breath. She has no additional complaints at this time. Review of Systems All systems: negative Past Medical History Past Medical History: Atrial Fibrillation, Cancer, GERD/Reflux, Hyperlipidemia, Hypertension, Osteoarthritis (OA) Additional Past Medical History / Comment(s): bladder cancer with urostomy, Small Bowel Obstruction, vertigo History of Any Multi-Drug Resistant Organisms: None Reported Past Surgical History: Ablation, Bladder Surgery, Heart Catheterization, Hernia Repair, Hysterectomy, Orthopedic Surgery, Pacemaker, Tonsillectomy Additional Past Surgical History / Comment(s): LEFT HIP SURGERY x 3, GRAFTS AND MARNIE, CARDIOVERSION, urostomy Past Anesthesia/Blood Transfusion Reactions: Previous Problems w/ Anesthesia Additional Past Anesthesia/Blood Transfusion Reaction / Comm: asthma attack Type of Cardiac Device: Permanent Pacemaker Device Placement Date:: 2006 Past Psychological History: No Psychological Hx Reported Smoking Status: Former smoker Past Alcohol Use History: None Reported Past Drug Use History: None Reported - Past Family History Mother Additional Family Medical History / Comment(s): divertic Father Family Medical History: Hyperlipidemia Medications and Allergies Home Medications Medication Instructions Recorded Confirmed Type Losartan Potassium 100 mg PO DAILY 02/05/15 10/22/18 History Omeprazole [PriLOSEC] 20 mg PO Q48H 02/05/15 10/22/18 History traMADol HCl [Ultram] 50 mg PO DAILY PRN 02/05/15 10/22/18 History Furosemide [Lasix] 20 mg PO BID 09/01/16 10/22/18 History Meclizine [Antivert] 25 mg PO DAILY PRN 09/01/16 10/22/18 History Ondansetron [Zofran] 4 mg PO Q6H PRN 09/01/16 10/22/18 History Potassium Chloride [K-Tab ER] 10 meq PO DAILY 09/01/16 10/22/18 History Propafenone HCl 150 mg PO BID 09/01/16 10/22/18 History Zolpidem [Ambien] 5 mg PO HS PRN 09/01/16 10/22/18 History Metoprolol Tartrate [Lopressor] 25 mg PO BID #60 tab 12/21/16 10/22/18 Rx Allergies Allergy/AdvReac Type Severity Reaction Status Date / Time ether Allergy Anaphylaxis Verified 10/22/18 22:44 tetanus and diphtheria Allergy Unknown Verified 10/22/18 22:44 toxoids [tetanus & diphtheria toxoids] codeine AdvReac Nausea Verified 10/22/18 22:44 Surgical - Exam Osteopathic Statement: *. No significant issues noted on an osteopathic structural exam other than those noted in the History and Physical/Consult. Vital Signs Temp Pulse Resp BP Pulse Ox 97.9 F 83 18 158/88 97 10/22/18 22:39 10/22/18 22:39 10/22/18 22:39 10/22/18 22:39 10/22/18 22:39 - General well nourished, no distress - Eyes normal ocular movement - Neck trachea midline - Respiratory No difficulty with respiration - Abdomen Soft, mild generalized tenderness, mild distention, no rebound, no guarding, previous surgical sites are well-healed, urostomy in place with output - Psychiatric oriented to time, oriented to person, oriented to place Results - Labs 10/22/18 22:55 10/22/18 22:55 Abnormal Lab Results - Last 24 Hours (Table) 10/22/18 10/22/18 10/23/18 Range/Units 22:55 22:55 00:02 WBC 10.8 H (3.8-10.6) k/uL Neutrophils # 8.9 H (1.3-7.7) k/uL Lymphocytes # 0.9 L (1.0-4.8) k/uL BUN 21 H (7-17) mg/dL Creatinine 1.07 H (0.52-1.04) mg/dL Glucose 108 H (74-99) mg/dL Alkaline Phosphatase 127 H (38-126) U/L Lipase 359 H (23-300) U/L Urine Appearance Cloudy H (Clear) Urine Nitrite Positive H (Negative) Urine WBC 6 H (0-5) /hpf Urine Bacteria Rare H (None) /hpf Hyaline Casts 3 H (0-2) /lpf Diabetes panel 10/22/18 Range/Units 22:55 Sodium 138 (137-145) mmol/L Potassium 4.8 (3.5-5.1) mmol/L Chloride 105 (98-107) mmol/L Carbon Dioxide 26 (22-30) mmol/L BUN 21 H (7-17) mg/dL Creatinine 1.07 H (0.52-1.04) mg/dL Glucose 108 H (74-99) mg/dL Calcium 10.2 (8.4-10.2) mg/dL AST 31 (14-36) U/L ALT 28 (9-52) U/L Alkaline Phosphatase 127 H (38-126) U/L Total Protein 7.4 (6.3-8.2) g/dL Albumin 4.1 (3.5-5.0) g/dL Calcium panel 10/22/18 Range/Units 22:55 Calcium 10.2 (8.4-10.2) mg/dL Albumin 4.1 (3.5-5.0) g/dL Pituitary panel 10/22/18 Range/Units 22:55 Sodium 138 (137-145) mmol/L Potassium 4.8 (3.5-5.1) mmol/L Chloride 105 (98-107) mmol/L Carbon Dioxide 26 (22-30) mmol/L BUN 21 H (7-17) mg/dL Creatinine 1.07 H (0.52-1.04) mg/dL Glucose 108 H (74-99) mg/dL Calcium 10.2 (8.4-10.2) mg/dL Adrenal panel 10/22/18 Range/Units 22:55 Sodium 138 (137-145) mmol/L Potassium 4.8 (3.5-5.1) mmol/L Chloride 105 (98-107) mmol/L Carbon Dioxide 26 (22-30) mmol/L BUN 21 H (7-17) mg/dL Creatinine 1.07 H (0.52-1.04) mg/dL Glucose 108 H (74-99) mg/dL Calcium 10.2 (8.4-10.2) mg/dL Total Bilirubin 0.7 (0.2-1.3) mg/dL AST 31 (14-36) U/L ALT 28 (9-52) U/L Alkaline Phosphatase 127 H (38-126) U/L Total Protein 7.4 (6.3-8.2) g/dL Albumin 4.1 (3.5-5.0) g/dL - Imaging CT scan - abdomen: report reviewed, image reviewed (Dilated loops of small bowel are noted) Assessment and Plan (1) Partial small bowel obstruction Narrative/Plan: 72-year-old female with partial small bowel obstruction. Due to recurrent episodes of emesis, I am recommending nasogastric tube decompression. The patient has had nasogastric tubes in the past and is agreeable to this plan. She will require pediatric nasogastric tube. We will also continue to follow the clinical progress of her small bowel obstruction with an abdominal x-ray in the next 24 hours. At this time, we will keep the patient nothing by mouth. Further surgical recommendations will be made based on the patient's clinical progression. Thank you for this consultation, I look forward in providing in this patient's care. Current Visit: Yes Status: Acute Code(s): K56.69 - OTHER INTESTINAL OBSTRUCTION * DO NOT USE * SNOMED Code(s): 437364634
[2018-10-23 11:25] LABS: Basophils % (A) 1 %; Eosinophils # (A) 0.1 k/uL (0-0.7); Eosinophils % (A) 2 %; HCT 36.4 % (34.0-46.0); HGB 11.1 gm/dL (11.4-16.0); Hypochromasia Slight; Lymphocytes # (A) 0.8 k/uL (1.0-4.8); Lymphocytes % (A) 12 %; MCH 26.3 pg (25.0-35.0); MCHC 30.5 g/dL (31.0-37.0); MCV 86.2 fL (80.0-100.0); Mean Platelet Volume 6.9; Monocytes # (A) 0.3 k/uL (0-1.0); Monocytes % (A) 5 %; Neutrophils % (A) 78 %; Platelet Count 241 k/uL (150-450); RBC 4.23 m/uL (3.80-5.40); RDW 13.6 % (11.5-15.5); WBC 6.4 k/uL (3.8-10.6)
--- NOTE | 2018-10-23 11:28 | XR ---
EXAMINATION TYPE: XR chest 1V portable DATE OF EXAM: 10/23/2018 HISTORY: NG tube placement. REFERENCE: Previous study dated 12/19/2016. FINDINGS: There is a bipolar pacemaker in place on the left. NG tube is been inserted but can not be followed the on the diaphragm. The heart is mildly enlarged. Lungs are clear. Pleural space are clear. I am suspicious that there is a hiatal hernia present behind the heart. IMPRESSION: 1. FAILURE TO VISUALIZE THE TIP OF THE NG TUBE. 2. CARDIOMEGALY. 3. I AM SUSPICIOUS THAT THERE IS A HIATAL HERNIA PRESENT.
--- NOTE | 2018-10-23 11:29 | XR ---
EXAMINATION TYPE: XR abdomen 1V , ONE VIEW DATE OF EXAM ORDERED: 10/23/2018 HISTORY: NGT placement . COMPARISON: None. FINDINGS: The patient is NG tube is coiled within the patient's hiatal hernia. Visualized portions o f the lungs are clear. The abdominal gas pattern appears nonobstructive. IMPRESSION: NG TUBE COILED WITHIN THE PATIENT'S HIATAL HERNIA.
[2018-10-23 11:40] LABS: Calcium 9.7 mg/dL (8.4-10.2); Potassium 4.8 mmol/L (3.5-5.1)
--- NOTE | 2018-10-23 12:08 | XR ---
EXAMINATION TYPE: XR abdomen 1V , ONE VIEW DATE OF EXAM ORDERED: 10/23/2018 HISTORY: NG tube placement. COMPARISON: Previous study dated 10/23/2018. FINDINGS: The tip of the NG tube is out the GE junction. Hiatal hernia is present. Limited views of the abdomen are unremarkable. IMPRESSION: NG TUBE IS AT THE LEVEL OF THE GE JUNCTION AND SHOULD LIKELY BE ADVANCED.
--- NOTE | 2018-10-23 12:45 | XR ---
EXAMINATION TYPE: XR abdomen 1V , ONE VIEW DATE OF EXAM ORDERED: 10/23/2018 HISTORY: NG tube placement. COMPARISON: Previous studies of earlier today. FINDINGS: The patient is NG tube is been repositioned and is now curled again in the patient's hiata l hernia. IMPRESSION: NG TUBE CURLED IN THE PATIENT'S HIATAL HERNIA.
--- NOTE | 2018-10-23 14:10 | P.HPIM ---
History of Present Illness H&P Date: 10/23/18 Chief Complaint: Abdominal pain 72-year-old female presents to the emergency department with complaints of abdominal pain, nausea and vomiting. The patient states that she has had these issues previously and is noted to have a history of multiple small bowel obstructions. The patient's abdominal surgery history is positive for a urostomy secondary to cystectomy due to bladder cancer. The patient denies any changes with her urostomy output. She states that her last bowel function was approximately 36-48 hours ago. Since that time she has not had any flatus or bowel movements. She has had multiple emesis episodes. She states she also is having abdominal pain. She states that the distention within her abdomen has mildly improved since her presentation to the hospital. She denies any fevers, chills, chest pain or shortness of breath. She has no additional complaints at this time. Review of Systems REVIEW OF SYSTEMS: CONSTITUTIONAL: No fever, no malaise, no fatigue. HEENT: No recent visual problems or hearing problems. Denied any sore throat. CARDIOVASCULAR: No chest pain, orthopnea, PND, no palpitations, no syncope. PULMONARY: No shortness of breath, no cough, no hemoptysis. GASTROINTESTINAL: No diarrhea, no nausea, no vomiting, no abdominal pain. NEUROLOGICAL: No headaches, no weakness, no numbness. HEMATOLOGICAL: Denies any bleeding or petechiae. GENITOURINARY: Denies any burning micturition, frequency, or urgency. MUSCULOSKELETAL/RHEUMATOLOGICAL: Denies any joint pain, swelling, or any muscle pain. ENDOCRINE: Denies any polyuria or polydipsia. The rest of the 14-point review of systems is negative. Past Medical History Past Medical History: Atrial Fibrillation, Cancer, GERD/Reflux, Hyperlipidemia, Hypertension, Osteoarthritis (OA) Additional Past Medical History / Comment(s): bladder cancer with urostomy, Small Bowel Obstruction, vertigo History of Any Multi-Drug Resistant Organisms: None Reported Past Surgical History: Ablation, Bladder Surgery, Heart Catheterization, Hernia Repair, Hysterectomy, Orthopedic Surgery, Pacemaker, Tonsillectomy Additional Past Surgical History / Comment(s): LEFT HIP SURGERY x 3, GRAFTS AND MARNIE, CARDIOVERSION, urostomy Past Anesthesia/Blood Transfusion Reactions: Previous Problems w/ Anesthesia Additional Past Anesthesia/Blood Transfusion Reaction / Comment(s): asthma attack Type of Cardiac Device: Permanent Pacemaker Device Placement Date:: 2006 Past Psychological History: No Psychological Hx Reported Smoking Status: Former smoker Past Alcohol Use History: None Reported Past Drug Use History: None Reported - Past Family History Mother Additional Family Medical History / Comment(s): divertic Father Family Medical History: Hyperlipidemia Medications and Allergies Home Medications Medication Instructions Recorded Confirmed Type Losartan Potassium 100 mg PO DAILY 02/05/15 10/22/18 History Omeprazole [PriLOSEC] 20 mg PO Q48H 02/05/15 10/22/18 History traMADol HCl [Ultram] 50 mg PO DAILY PRN 02/05/15 10/22/18 History Furosemide [Lasix] 20 mg PO BID 09/01/16 10/22/18 History Meclizine [Antivert] 25 mg PO DAILY PRN 09/01/16 10/22/18 History Ondansetron [Zofran] 4 mg PO Q6H PRN 09/01/16 10/22/18 History Potassium Chloride [K-Tab ER] 10 meq PO DAILY 09/01/16 10/22/18 History Propafenone HCl 150 mg PO BID 09/01/16 10/22/18 History Zolpidem [Ambien] 5 mg PO HS PRN 09/01/16 10/22/18 History Metoprolol Tartrate [Lopressor] 25 mg PO BID #60 tab 12/21/16 10/22/18 Rx Allergies Allergy/AdvReac Type Severity Reaction Status Date / Time ether Allergy Anaphylaxis Verified 10/22/18 22:44 tetanus and diphtheria Allergy Unknown Verified 10/22/18 22:44 toxoids [tetanus & diphtheria toxoids] codeine AdvReac Nausea Verified 10/22/18 22:44 Physical Exam Vitals: Vital Signs Temp Pulse Pulse Pulse Resp BP BP 10/23/18 07:00 98.5 F 67 16 138/76 10/23/18 03:02 98.6 F 63 18 142/85 10/23/18 01:58 98.2 F 64 18 135/73 10/23/18 00:52 62 18 143/77 10/22/18 22:39 97.9 F 83 18 158/88 Pulse Ox 10/23/18 07:00 94 L 10/23/18 03:02 94 L 10/23/18 01:58 95 10/23/18 00:52 98 10/22/18 22:39 97 Intake and Output 10/22/18 10/23/18 10/23/18 22:59 06:59 14:59 Intake Total 375 Output Total 100 Balance 275 Intake: Oral 375 Output: Urine 100 Other: Voiding Method Urinal # Emeses 1 Weight 81.647 kg Limitations: no limitations General appearance: alert, in no apparent distress, other (Physical well- developed, well-nourished adult female patient in no acute distress. Vital signs upon presentation are temperature 97.9F, pulse 83, respirations 18, blood pressure 158/88, pulse ox 97% on room air.) Eye exam: Present: normal appearance, PERRL, EOMI. Absent: scleral icterus, conjunctival injection, periorbital swelling ENT exam: Present: normal exam, normal oropharynx, mucous membranes moist Respiratory exam: Present: normal lung sounds bilaterally. Absent: respiratory distress, wheezes, rales, rhonchi, stridor Cardiovascular Exam: Present: regular rate, normal rhythm, normal heart sounds. Absent: systolic murmur, diastolic murmur, rubs, gallop, clicks GI/Abdominal exam: Present: soft, tenderness (Upper abdominal tenderness), normal bowel sounds. Absent: distended, guarding, rebound, rigid Neurological exam: Present: alert, oriented X3, CN II-XII intact Psychiatric exam: Present: normal affect, normal mood Skin exam: Present: warm, dry, intact, normal color. Absent: rash Results CBC & Chem 7: 10/23/18 10:56 10/23/18 10:56 Labs: Abnormal Lab Results - Last 24 Hours (Table) 10/22/18 10/22/18 10/23/18 Range/Units 22:55 22:55 00:02 WBC 10.8 H (3.8-10.6) k/uL Neutrophils # 8.9 H (1.3-7.7) k/uL Lymphocytes # 0.9 L (1.0-4.8) k/uL BUN 21 H (7-17) mg/dL Creatinine 1.07 H (0.52-1.04) mg/dL Glucose 108 H (74-99) mg/dL Alkaline Phosphatase 127 H (38-126) U/L Lipase 359 H (23-300) U/L Urine Appearance Cloudy H (Clear) Urine Nitrite Positive H (Negative) Urine WBC 6 H (0-5) /hpf Urine Bacteria Rare H (None) /hpf Hyaline Casts 3 H (0-2) /lpf Thrombosis Risk Factor Assmnt - Choose All That Apply Any of the Below Risk Factors Present?: Yes Each Factor Represents 1 point: Obesity (BMI >25), Swollen legs (current) Other Risk Factors: Yes Each Risk Factor Represents 2 Points: Age 61-74 years Other congenital or acquired thrombophilia - If yes, enter type in comment: No Thrombosis Risk Factor Assessment Total Risk Factor Score: 4 Thrombosis Risk Factor Assessment Level: Moderate Risk Assessment and Plan Assessment: 1. Partial small bowel obstruction - Surgery service is following and patient is recommended NG tube to low intermittent suctioning - Repeat abdominal x-ray in the morning - We will change Zofran to every 4-6 hours for persistent nausea 2. Acute renal injury/dehydration - Continue with IV fluid hydration with normal saline at a rate of 75 mL an hour - We will continue to monitor renal function, electrolytes, JOSE's - Avoid hypotension and nephrotoxins 3. Possible UTI - We will wait for urine culture for possible antibiotic treatment - Continue to monitor vital signs and CBC 4. Hypertension - Patient remains on home dose of losartan 100 mg daily - We will monitor renal function closely and hold losartan if renal function continue to trend up 5. Hyperlipidemia 6. History of atrial fibrillation 7. DVT prophylaxis We will restart home medications for all of the chronic medical problems indicated above CODE STATUS; full code Time with Patient: Greater than 30
[2018-10-23] MEDS ORDERED: BENZOCAINE SPRAY 1 CAN MUCOUS MEM PRN (15:28)
[2018-10-24] MEDS: SODIUM CHLORIDE 0.9% 1,000 ML IV SCH ×2 (05:43→17:26)
[2018-10-24] MEDS: ONDANSETRON 4 MG/2 ML VIAL IVP PRN ×2 (06:04→11:56)
--- NOTE | 2018-10-24 07:22 | XR ---
EXAMINATION TYPE: XR abdomen 2V , 3 VIEWS DATE OF EXAM ORDERED: 10/24/2018 HISTORY: psbo. COMPARISON: Previous study dated 10/23/2018 is a bipolar pacemaker in place. The lung bases are clear. There is an NG tube in place. Its tip is coiled in the patient's hiatal hernia. The abdominal gas pattern is within normal limits. There is no evidence of obstruction or free air. T here has been previous pelvic surgery. There is a left hip prosthesis in place. No unusual calcificat ions are seen.. FINDINGS: 1. ET tube curled in the patient's hiatal hernia. 2. No evidence of bowel obstruction at this time. IMPRESSION:
[2018-10-24] MEDS: METOPROLOL TARTRATE 25 MG TAB PO SCH ×2 (08:19→20:18)
[2018-10-24] MEDS: LOSARTAN 50 MG TAB PO SCH (08:19)
[2018-10-24] MEDS: FUROSEMIDE 20 MG TAB PO SCH ×2 (08:19→20:18)
[2018-10-24] MEDS: PROPAFENONE 150 MG TAB PO SCH ×2 (08:20→20:24)
[2018-10-24] MEDS: POTASSIUM CHLORIDE ER 10 MEQ TAB.ER.PRT PO SCH (08:20)
[2018-10-24 08:26] LABS: Basophils % (A) 0 %; Eosinophils # (A) 0.1 k/uL (0-0.7); Eosinophils % (A) 1 %; HCT 32.8 % (34.0-46.0); HGB 10.5 gm/dL (11.4-16.0); Hypochromasia Slight; Lymphocytes # (A) 0.7 k/uL (1.0-4.8); Lymphocytes % (A) 9 %; MCH 27.3 pg (25.0-35.0); MCHC 32.1 g/dL (31.0-37.0); MCV 85.1 fL (80.0-100.0); Mean Platelet Volume 7.4; Monocytes # (A) 0.5 k/uL (0-1.0); Monocytes % (A) 6 %; Neutrophils # (A) 6.6 k/uL (1.3-7.7); Neutrophils % (A) 82 %; Platelet Count 211 k/uL (150-450); RBC 3.85 m/uL (3.80-5.40); RDW 13.8 % (11.5-15.5)
[2018-10-24 08:41] LABS: Albumin 3.4 g/dL (3.5-5.0); Calcium 9.2 mg/dL (8.4-10.2); Potassium 4.2 mmol/L (3.5-5.1); Total Bilirubin 0.8 mg/dL (0.2-1.3); Total Protein 6.1 g/dL (6.3-8.2)
--- NOTE | 2018-10-24 09:44 | P.PN ---
Subjective Progress Note Date: 10/24/18 Patient seen and examined at bedside. States she has had flatus. She has had a little over 100 mL out of the nasogastric tube. States abdominal pain is improving. Objective - Vital Signs Vital signs: Vital Signs Temp 99.0 F 10/24/18 07:00 Pulse 67 10/24/18 07:00 Resp 18 10/24/18 07:00 BP 142/75 10/24/18 07:00 Pulse Ox 94 L 10/24/18 07:00 Intake & Output 10/23/18 10/24/18 10/24/18 18:59 06:59 18:59 Intake Total 0 Output Total 110 700 Balance -110 -700 Intake: Oral 0 Output: Gastric Drainage 110 100 Urine 600 Other: Voiding Method Urinal Urinal # Voids 1 # Emeses 1 - Constitutional General appearance: Present: cooperative, no acute distress - EENT Eyes: Present: PERRLA - Respiratory Details: No difficulty with respiration - Gastrointestinal Gastrointestinal Comment(s): Soft, nontender, nondistended, no rebound, no guarding - Psychiatric Psychiatric: Present: A&O x's 3 - Labs CBC & Chem 7: 10/24/18 07:56 10/24/18 07:56 Labs: Abnormal Lab Results - Last 24 Hours (Table) 10/23/18 10/23/18 10/24/18 Range/Units 10:56 10:56 07:56 Hgb 11.1 L 10.5 L (11.4-16.0) gm/dL Hct 32.8 L (34.0-46.0) % MCHC 30.5 L (31.0-37.0) g/dL Lymphocytes # 0.8 L 0.7 L (1.0-4.8) k/uL Glucose 112 H (74-99) mg/dL Total Protein (6.3-8.2) g/dL Albumin (3.5-5.0) g/dL 10/24/18 Range/Units 07:56 Hgb (11.4-16.0) gm/dL Hct (34.0-46.0) % MCHC (31.0-37.0) g/dL Lymphocytes # (1.0-4.8) k/uL Glucose (74-99) mg/dL Total Protein 6.1 L (6.3-8.2) g/dL Albumin 3.4 L (3.5-5.0) g/dL Assessment and Plan (1) Partial small bowel obstruction Narrative/Plan: 72-year-old female with partial small bowel obstruction - Patient has had flatus and abdominal x-ray from this morning does not show any evidence of bowel obstruction - Remove the NG tube - Begin clear liquid diet, I did discuss with the patient about moving slowly with diet - Continue to increase activity and await more bowel function - Further recommendations will be made based on the patient's clinical progress Current Visit: Yes Status: Acute Code(s): K56.69 - OTHER INTESTINAL OBSTRUCTION * DO NOT USE * SNOMED Code(s): 453301166
--- NOTE | 2018-10-24 12:28 | P.PN ---
Subjective Progress Note Date: 10/24/18 Principal diagnosis: Partial small bowel obstruction Acute renal injury/dehydration Possible UTI 72-year-old female presents to the emergency department with complaints of abdominal pain, nausea and vomiting. The patient states that she has had these issues previously and is noted to have a history of multiple small bowel obstructions. The patient's abdominal surgery history is positive for a urostomy secondary to cystectomy due to bladder cancer. The patient denies any changes with her urostomy output. She states that her last bowel function was approximately 36-48 hours ago. Since that time she has not had any flatus or bowel movements. She has had multiple emesis episodes. She states she also is having abdominal pain. She states that the distention within her abdomen has mildly improved since her presentation to the hospital. 10/24/2018 Patient is seen and evaluated in the room for follow-up at bedside; patient reported having flatus; abdominal x-ray did not show any further improvement; NG tube has been removed for surgical service recommendations Patient is started on clear liquid diet and plan is to increase activity and advance diet slowly and wait for improvement in bowel function Patient's vital signs and CBC remained stable; no need for antibiotic treatment for a UTI at this time Objective - Vital Signs Vital signs: Vital Signs Temp 99.0 F 10/24/18 07:00 Pulse 67 10/24/18 07:00 Resp 18 10/24/18 07:00 BP 142/75 10/24/18 07:00 Pulse Ox 94 L 10/24/18 07:00 Intake & Output 10/23/18 10/24/18 10/24/18 18:59 06:59 18:59 Intake Total 0 Output Total 110 700 Balance -110 -700 Intake: Oral 0 Output: Gastric Drainage 110 100 Urine 600 Other: Voiding Method Urinal Urinal Urinal # Voids 1 # Emeses 1 - Exam - Constitutional General appearance: Present: average body habitus, cooperative, no acute distress - EENT Eyes: Present: anicteric sclerae, EOMI, PERRLA, normal appearance ENT: Present: hearing grossly normal, normal oropharynx Ears: bilateral: normal - Neck Neck: Present: normal ROM. Absent: lymphadenopathy, rigidity, thyromegaly Carotids: negative: bruit present Thyroid: bilateral: normal size, negative: enlarged, nodule - Respiratory Respiratory: bilateral: CTA, negative: rales, rhonchi, wheezing - Cardiovascular Rhythm: regular Heart sounds: normal: S1, S2 Abnormal Heart Sounds: Absent: systolic murmur, diastolic murmur - Gastrointestinal General gastrointestinal: Present: normal bowel sounds, soft. Absent: distended , organomegaly, tenderness - Genitourinary Genitourinary Comment(s): deferred - Integumentary Integumentary: Present: normal turgor. Absent: jaundiced, rash, ulcer - Neurologic Neurologic: Present: CNII-XII intact. Absent: focal deficits - Musculoskeletal Musculoskeletal: Present: gait normal, strength equal bilaterally - Psychiatric Psychiatric: Present: A&O x's 3, appropriate affect, intact judgment & insight - Labs CBC & Chem 7: 10/24/18 07:56 10/24/18 07:56 Labs: Abnormal Lab Results - Last 24 Hours (Table) 10/24/18 10/24/18 Range/Units 07:56 07:56 Hgb 10.5 L (11.4-16.0) gm/dL Hct 32.8 L (34.0-46.0) % Lymphocytes # 0.7 L (1.0-4.8) k/uL Total Protein 6.1 L (6.3-8.2) g/dL Albumin 3.4 L (3.5-5.0) g/dL Assessment and Plan Assessment: 1. Partial small bowel obstruction - Surgery service is following and patient is recommended NG tube to low intermittent suctioning - Repeat abdominal x-ray in the morning - We will change Zofran to every 4-6 hours for persistent nausea 2. Acute renal injury/dehydration - Continue with IV fluid hydration with normal saline at a rate of 75 mL an hour - We will continue to monitor renal function, electrolytes, JOSE's - Avoid hypotension and nephrotoxins 3. Possible UTI - We will wait for urine culture for possible antibiotic treatment - Continue to monitor vital signs and CBC 4. Hypertension - Patient remains on home dose of losartan 100 mg daily - We will monitor renal function closely and hold losartan if renal function continue to trend up 5. Hyperlipidemia 6. History of atrial fibrillation 7. DVT prophylaxis We will restart home medications for all of the chronic medical problems indicated above CODE STATUS; full code Time with Patient: Greater than 30
[2018-10-24] MEDS: PANTOPRAZOLE 40 MG/10 ML VIAL IVP SCH (20:23)
[2018-10-24 20:48] LABS: HCT 31.7 % (34.0-46.0); HGB 10.2 gm/dL (11.4-16.0); Hypochromasia Slight; MCH 27.4 pg (25.0-35.0); MCHC 32.2 g/dL (31.0-37.0); MCV 85.2 fL (80.0-100.0); Mean Platelet Volume 7.5; Platelet Count 191 k/uL (150-450); RBC 3.72 m/uL (3.80-5.40); RDW 13.6 % (11.5-15.5); WBC 6.8 k/uL (3.8-10.6)
[2018-10-25 08:03] LABS: Calcium 9.1 mg/dL (8.4-10.2); Potassium 3.9 mmol/L (3.5-5.1)
--- NOTE | 2018-10-25 08:05 | P.PN ---
Subjective Progress Note Date: 10/25/18 Patient seen and examined at bedside. States she is feeling much better today. Having more flatus, but no BM. Denies nausea and vomiting. Tolerating clear liquid diet. Objective - Vital Signs Vital signs: Vital Signs Temp 98.6 F 10/25/18 07:00 Pulse 61 10/25/18 07:00 Resp 16 10/25/18 07:00 BP 125/68 10/25/18 07:00 Pulse Ox 95 10/25/18 07:00 Intake & Output 10/24/18 10/25/18 10/25/18 18:59 06:59 18:59 Intake Total 120 Output Total 900 1350 Balance -780 -1350 Intake: Oral 120 Output: Urine 900 1350 Other: Voiding Method Urinal Urinal # Voids 0 # Bowel Movements 0 # Emeses 0 - Constitutional General appearance: Present: cooperative, no acute distress - EENT Eyes: Present: PERRLA - Respiratory Details: No difficulty with respiration - Gastrointestinal Gastrointestinal Comment(s): Soft, nontender, nondistended, no rebound, no guarding, urostomy in place - Psychiatric Psychiatric: Present: A&O x's 3 - Labs CBC & Chem 7: 10/24/18 20:01 10/24/18 07:56 Labs: Abnormal Lab Results - Last 24 Hours (Table) 10/24/18 10/24/18 10/24/18 Range/Units 07:56 07:56 20:01 RBC 3.72 L (3.80-5.40) m/uL Hgb 10.5 L 10.2 L (11.4-16.0) gm/dL Hct 32.8 L 31.7 L (34.0-46.0) % Lymphocytes # 0.7 L (1.0-4.8) k/uL Total Protein 6.1 L (6.3-8.2) g/dL Albumin 3.4 L (3.5-5.0) g/dL Assessment and Plan (1) Partial small bowel obstruction Narrative/Plan: 72-year-old female with partial small bowel obstruction, appears to be resolving - Patient continues to have flatus, no BM - Advance to soft diet - Continue to increase activity and await more bowel function - Further recommendations will be made based on the patient's clinical progress Current Visit: Yes Status: Acute Code(s): K56.69 - OTHER INTESTINAL OBSTRUCTION * DO NOT USE * SNOMED Code(s): 144849842
[2018-10-25] MEDS: LOSARTAN 50 MG TAB PO SCH (08:28)
[2018-10-25] MEDS: FUROSEMIDE 20 MG TAB PO SCH ×2 (08:28→21:55)
[2018-10-25] MEDS: POTASSIUM CHLORIDE ER 10 MEQ TAB.ER.PRT PO SCH (08:28)
[2018-10-25] MEDS: METOPROLOL TARTRATE 25 MG TAB PO SCH ×2 (08:28→21:56)
[2018-10-25] MEDS: PANTOPRAZOLE 40 MG/10 ML VIAL IVP SCH ×2 (08:29→21:56)
[2018-10-25] MEDS: SODIUM CHLORIDE 0.9% 1,000 ML IV SCH (08:31)
[2018-10-25] MEDS: PROPAFENONE 150 MG TAB PO SCH ×2 (08:34→22:09)
[2018-10-25 12:46] LABS: Basophils % (A) 1 %; Eosinophils # (A) 0.1 k/uL (0-0.7); Eosinophils % (A) 3 %; HCT 32.7 % (34.0-46.0); HGB 10.2 gm/dL (11.4-16.0); Hypochromasia Moderate; Lymphocytes # (A) 0.7 k/uL (1.0-4.8); Lymphocytes % (A) 18 %; MCHC 31.1 g/dL (31.0-37.0); MCV 86.8 fL (80.0-100.0); Mean Platelet Volume 7.8; Monocytes # (A) 0.3 k/uL (0-1.0); Monocytes % (A) 8 %; Neutrophils # (A) 2.9 k/uL (1.3-7.7); Neutrophils % (A) 68 %; Platelet Count 189 k/uL (150-450); RBC 3.76 m/uL (3.80-5.40); RDW 13.5 % (11.5-15.5); WBC 4.2 k/uL (3.8-10.6)
[2018-10-25] MEDS: HEPARIN SODIUM,PORCINE 5,000 UNIT/ML 1 ML VIAL SQ SCH (21:55)
--- NOTE | 2018-10-25 22:46 | P.PN ---
Subjective subjective on 10/25/2018 pt has minimal abdominal pain , she was on clear liquid diet, no nausea or vomiting. surgical follow up is appreciated ,, pt has no bowel movement yet, we will advance diet for pt Objective - Vital Signs Vital signs: Vital Signs Temp 98.6 F 10/25/18 07:00 Pulse 61 10/25/18 07:00 Resp 16 10/25/18 07:00 BP 125/68 10/25/18 07:00 Pulse Ox 95 10/25/18 07:00 Intake & Output 10/24/18 10/25/18 10/25/18 18:59 06:59 18:59 Intake Total 120 Output Total 900 1350 Balance -780 -1350 Intake: Oral 120 Output: Urine 900 1350 Other: Voiding Method Urinal Urinal Urinal # Voids 0 # Bowel Movements 0 # Emeses 0 - Exam GENERAL: The patient is alert and oriented x3, not in any acute distress. Well developed, well nourished. HEENT: Pupils are round and equally reacting to light. EOMI. No scleral icterus. No conjunctival pallor. Normocephalic, atraumatic. No pharyngeal erythema. No thyromegaly. CARDIOVASCULAR: S1 and S2 present. No murmurs, rubs, or gallops. PULMONARY: Chest is clear to auscultation, no wheezing or crackles. ABDOMEN: Soft, nontender, nondistended, normoactive bowel sounds. No palpable organomegaly. MUSCULOSKELETAL: No joint swelling or deformity. EXTREMITIES: No cyanosis, clubbing, or pedal edema. NEUROLOGICAL: Gross neurological examination did not reveal any focal deficits. SKIN: No rashes. - Labs CBC & Chem 7: 10/25/18 06:50 10/25/18 06:50 Labs: Abnormal Lab Results - Last 24 Hours (Table) 10/24/18 10/25/18 Range/Units 20:01 06:50 RBC 3.72 L (3.80-5.40) m/uL Hgb 10.2 L (11.4-16.0) gm/dL Hct 31.7 L (34.0-46.0) % Chloride 108 H (98-107) mmol/L Assessment and Plan Assessment: Partial small bowel obstruction Acute kidney injury and dehydration. Resolve History of essential hypertension Hyperlipidemia History of atrial fibrillation Plan: This is a pleasant 72 years old female presents with bowel obstruction signs symptoms. Surgical team are following the patient. Advance diet. Pain medication. Continue with IV hydration. Labs and medication were reviewed.. Continue same treatment. Continue with symptomatic treatment. Resume home medication. Monitor lytes and vitals. DVT and GI prophylaxis. Further recommendations of the clinical course of the patient GI Prophylaxis: Protonix Prognosis is guarded
[2018-10-26] MEDS: SODIUM CHLORIDE 0.9% 1,000 ML IV SCH ×2 (05:04→11:52)
[2018-10-26 08:13] VITALS: BP 136/79; PULSE 85; RESP 16; TEMP 96.6
[2018-10-26] MEDS: PANTOPRAZOLE 40 MG/10 ML VIAL IVP SCH (08:39)
[2018-10-26] MEDS: LOSARTAN 50 MG TAB PO SCH (08:39)
[2018-10-26] MEDS: POTASSIUM CHLORIDE ER 10 MEQ TAB.ER.PRT PO SCH (08:39)
[2018-10-26] MEDS: HEPARIN SODIUM,PORCINE 5,000 UNIT/ML 1 ML VIAL SQ SCH (08:39)
[2018-10-26] MEDS: METOPROLOL TARTRATE 25 MG TAB PO SCH (08:39)
[2018-10-26] MEDS: FUROSEMIDE 20 MG TAB PO SCH (08:39)
[2018-10-26] MEDS: PROPAFENONE 150 MG TAB PO SCH (08:40)
--- NOTE | 2018-10-26 14:07 | P.PN ---
Subjective Progress Note Date: 10/26/18 Patient seen and examined at bedside. States she is feeling much better. He had 2 bowel movements today. Objective - Vital Signs Vital signs: Vital Signs Temp 96.6 F L 10/26/18 07:00 Pulse 85 10/26/18 07:00 Resp 16 10/26/18 08:00 BP 136/79 10/26/18 07:00 Pulse Ox 96 10/26/18 07:00 Intake & Output 10/25/18 10/26/18 10/26/18 18:59 06:59 18:59 Output Total 900 250 Balance -900 -250 Output: Urine 900 250 Other: Voiding Method Urinal Urinal # Voids 2 - Constitutional General appearance: Present: cooperative, no acute distress - Respiratory Details: No difficulty with respiration - Gastrointestinal Gastrointestinal Comment(s): Soft, nontender, nondistended, no rebound, no guarding, urostomy in place - Psychiatric Psychiatric: Present: A&O x's 3 - Labs CBC & Chem 7: 10/25/18 06:50 10/25/18 06:50 Assessment and Plan (1) Partial small bowel obstruction Narrative/Plan: 72-year-old female with partial small bowel obstruction, resolved - Patient has had 2 bowel movements - Continue soft diet - Continue to increase activity - Surgically stable for discharge Current Visit: Yes Status: Acute Code(s): K56.69 - OTHER INTESTINAL OBSTRUCTION * DO NOT USE * SNOMED Code(s): 531814976
== END 2018-10-26 15:38 | disposition home or self-care (01) | DRG 389 ==
LOC: EC 22:34 → 4MS4W 10-23 01:55
PROVIDERS: ADMIT Hospitalist; ATTEND Hospitalist
DX: K56.600 Partial intestinal obstruction, unspecified as to cause (principal); N17.9 Acute kidney failure, unspecified; E78.5 Hyperlipidemia, unspecified; E86.0 Dehydration; I10 Essential (primary) hypertension; I48.91 Unspecified atrial fibrillation; K21.9 Gastro-esophageal reflux disease without esophagitis; M19.90 Unspecified osteoarthritis, unspecified site; Z79.899 Other long term (current) drug therapy; Z85.51 Personal history of malignant neoplasm of bladder; Z87.891 Personal history of nicotine dependence; Z90.710 Acquired absence of both cervix and uterus; Z88.5 Allergy status to narcotic agent; Z88.7 Allergy status to serum and vaccine; Z88.8 Allergy status to other drugs, medicaments and biological substances; Z95.0 Presence of cardiac pacemaker; Z84.89 Family history of other specified conditions
CPT/HCPCS: 36415; 71045; 74018; 74019; 74177; 80048; 80053; 81001; 82150; 83605; 83690; 85025; 85027; 96361; 96374; 96375; 96376; 99285

== ENCOUNTER 2019-07-09 07:26 | Inpatient (IN) | payer MEDICARE, OTHER ==
[2019-07-09] MEDS ORDERED: ONDANSETRON 4 MG/2 ML VIAL IVP STA (07:39)
[2019-07-09] MEDS ORDERED: HYDROmorphone 1 MG/ML 1 ML SYRINGE IVP STA ×2 (07:39→10:41)
[2019-07-09] MEDS ORDERED: SODIUM CHLORIDE 0.9% 1,000 ML IV STA (07:39)
[2019-07-09] MEDS ORDERED: FAMOTIDINE 20 MG/2 ML VIAL IV STA (07:40)
--- NOTE | 2019-07-09 07:42 | ED ---
General Adult HPI - General Chief complaint: Abdominal Pain Stated complaint: ABDOMINAL PAIN Time Seen by Provider: 07/09/19 07:34 Source: patient, RN notes reviewed Mode of arrival: EMS Limitations: no limitations - History of Present Illness Initial comments: Patient is a pleasant 73-year-old female presenting to the emergency Department with complaints of abdominal discomfort. Onset of symptoms around 4 AM. Patient has had an associated nausea and vomiting. Patient has history of similar episodes previously associated with flipping of her bowels. Patient states she has seen surgeons for this previously however has not ever had surgery secondary to it. Patient states symptoms started after urostomy years ago. Patient has had similar symptoms multiple times previously. Nausea is mild at this time. Discomfort is near resolved at this time. Patient states it is been waxing and waning and usually she was given Dilaudid and Zofran for this. Patient has chronic diarrhea however no significant constipation or diarrhea at this time. - Related Data Home Medications Medication Instructions Recorded Confirmed Omeprazole [PriLOSEC] 20 mg PO Q48H 02/05/15 07/09/19 traMADol HCl [Ultram] 50 mg PO DAILY PRN 02/05/15 07/09/19 Furosemide [Lasix] 40 mg PO HS 09/01/16 07/09/19 Meclizine [Antivert] 25 mg PO DAILY PRN 09/01/16 07/09/19 Ondansetron [Zofran] 4 mg PO Q6H PRN 09/01/16 07/09/19 Potassium Chloride [K-Tab ER] 10 meq PO Q48H 09/01/16 07/09/19 Propafenone HCl 150 mg PO BID 09/01/16 07/09/19 Zolpidem [Ambien] 5 mg PO HS PRN 09/01/16 07/09/19 Aspirin EC [Ecotrin] 325 mg PO DAILY 07/09/19 07/09/19 Ibuprofen [Motrin] 800 mg PO DAILY 07/09/19 07/09/19 Previous Rx's Medication Instructions Recorded Metoprolol Tartrate [Lopressor] 25 mg PO BID #60 tab 12/21/16 Allergies Allergy/AdvReac Type Severity Reaction Status Date / Time ether Allergy Anaphylaxis Verified 07/09/19 09:07 tetanus and diphtheria Allergy Unknown Verified 07/09/19 09:07 toxoids [tetanus & diphtheria toxoids] codeine AdvReac Nausea Verified 07/09/19 09:07 Review of Systems ROS Statement: Those systems with pertinent positive or pertinent negative responses have been documented in the HPI. ROS Other: All systems not noted in ROS Statement are negative. Constitutional: Denies: fever Eyes: Denies: eye pain ENT: Denies: ear pain Respiratory: Denies: cough, dyspnea Cardiovascular: Denies: chest pain Endocrine: Denies: fatigue Gastrointestinal: Reports: as per HPI Genitourinary: Denies: urgency Musculoskeletal: Denies: back pain Skin: Denies: rash Neurological: Denies: weakness Past Medical History Past Medical History: Atrial Fibrillation, Cancer, GERD/Reflux, Hyperlipidemia, Hypertension, Osteoarthritis (OA) Additional Past Medical History / Comment(s): bladder cancer with urostomy, Small Bowel Obstruction, vertigo History of Any Multi-Drug Resistant Organisms: None Reported Past Surgical History: Ablation, Bladder Surgery, Heart Catheterization, Hernia Repair, Hysterectomy, Orthopedic Surgery, Pacemaker, Tonsillectomy Additional Past Surgical History / Comment(s): LEFT HIP SURGERY x 3, GRAFTS AND MARNIE, CARDIOVERSION, urostomy Past Anesthesia/Blood Transfusion Reactions: Previous Problems w/ Anesthesia Additional Past Anesthesia/Blood Transfusion Reaction / Comment(s): asthma attack Type of Cardiac Device: Permanent Pacemaker Device Placement Date:: 2006 Past Psychological History: No Psychological Hx Reported Smoking Status: Former smoker Past Alcohol Use History: None Reported Past Drug Use History: None Reported - Past Family History Mother Additional Family Medical History / Comment(s): divertic Father Family Medical History: Hyperlipidemia General Exam Limitations: no limitations General appearance: alert, in no apparent distress Head exam: Present: atraumatic Eye exam: Present: normal appearance Neck exam: Present: normal inspection Respiratory exam: Present: normal lung sounds bilaterally Cardiovascular Exam: Present: regular rate, normal rhythm Expanded Peripheral pulses: 2+: Dorsalis Pedis (R), Dorsalis Pedis (L) GI/Abdominal exam: Present: soft, tenderness (Mild diffuse tenderness. Moderate suprapubic tenderness), diminished bowel sounds. Absent: distended, rebound, rigid, pulsatile mass Extremities exam: Present: normal inspection. Absent: calf tenderness Neurological exam: Present: alert Psychiatric exam: Present: normal affect, normal mood Skin exam: Present: normal color Course Vital Signs 07/09/19 07/09/19 07/09/19 07:32 09:05 10:19 Temperature 98.7 F Pulse Rate 78 78 72 Respiratory 18 18 18 Rate Blood Pressure 149/88 139/72 132/82 O2 Sat by Pulse 100 100 100 Oximetry Medical Decision Making - Medical Decision Making Patient reevaluated and updated. Case discussed with Dr. Navarrete, who will admit covering for Dr. rdoriguez - Lab Data Result diagrams: 07/09/19 07:50 07/09/19 07:50 Lab Results 07/09/19 07/09/19 07/09/19 Range/Units 07:50 07:50 07:50 WBC 8.9 (3.8-10.6) k/uL RBC 4.50 (3.80-5.40) m/uL Hgb 11.5 (11.4-16.0) gm/dL Hct 35.5 (34.0-46.0) % MCV 78.9 L (80.0-100.0) fL MCH 25.5 (25.0-35.0) pg MCHC 32.4 (31.0-37.0) g/dL RDW 15.5 (11.5-15.5) % Plt Count 259 (150-450) k/uL Neutrophils % 87 % Lymphocytes % 7 % Monocytes % 3 % Eosinophils % 1 % Basophils % 1 % Neutrophils # 7.8 H (1.3-7.7) k/uL Lymphocytes # 0.6 L (1.0-4.8) k/uL Monocytes # 0.3 (0-1.0) k/uL Eosinophils # 0.1 (0-0.7) k/uL Basophils # 0.1 (0-0.2) k/uL Hypochromasia Slight PT 9.7 (9.0-12.0) sec INR 0.9 (<1.2) APTT 23.1 (22.0-30.0) sec Sodium 141 (137-145) mmol/L Potassium 4.5 (3.5-5.1) mmol/L Chloride 105 (98-107) mmol/L Carbon Dioxide 28 (22-30) mmol/L Anion Gap 8 mmol/L BUN 23 H (7-17) mg/dL Creatinine 1.01 (0.52-1.04) mg/dL Est GFR (CKD-EPI)AfAm 64 (>60 ml/min/1.73 sqM) Est GFR (CKD-EPI)NonAf 55 (>60 ml/min/1.73 sqM) Glucose 121 H (74-99) mg/dL Calcium 10.2 (8.4-10.2) mg/dL Total Bilirubin 0.4 (0.2-1.3) mg/dL AST 18 (14-36) U/L ALT 15 (9-52) U/L Alkaline Phosphatase 132 H (38-126) U/L Total Protein 7.4 (6.3-8.2) g/dL Albumin 4.2 (3.5-5.0) g/dL Amylase 91 (30-110) U/L Lipase 535 H (23-300) U/L Urine Color Urine Appearance (Clear) Urine pH (5.0-8.0) Ur Specific Fisher (1.001-1.035) Urine Protein (Negative) Urine Glucose (UA) (Negative) Urine Ketones (Negative) Urine Blood (Negative) Urine Nitrite (Negative) Urine Bilirubin (Negative) Urine Urobilinogen (<2.0) mg/dL Ur Leukocyte Esterase (Negative) Urine RBC (0-5) /hpf Urine WBC (0-5) /hpf Ur Squamous Epith Cells (0-4) /hpf Uric Acid Crystals (None) /hpf Amorphous Sediment (None) /hpf Urine Bacteria (None) /hpf 07/09/19 Range/Units 07:50 WBC (3.8-10.6) k/uL RBC (3.80-5.40) m/uL Hgb (11.4-16.0) gm/dL Hct (34.0-46.0) % MCV (80.0-100.0) fL MCH (25.0-35.0) pg MCHC (31.0-37.0) g/dL RDW (11.5-15.5) % Plt Count (150-450) k/uL Neutrophils % % Lymphocytes % % Monocytes % % Eosinophils % % Basophils % % Neutrophils # (1.3-7.7) k/uL Lymphocytes # (1.0-4.8) k/uL Monocytes # (0-1.0) k/uL Eosinophils # (0-0.7) k/uL Basophils # (0-0.2) k/uL Hypochromasia PT (9.0-12.0) sec INR (<1.2) APTT (22.0-30.0) sec Sodium (137-145) mmol/L Potassium (3.5-5.1) mmol/L Chloride (98-107) mmol/L Carbon Dioxide (22-30) mmol/L Anion Gap mmol/L BUN (7-17) mg/dL Creatinine (0.52-1.04) mg/dL Est GFR (CKD-EPI)AfAm (>60 ml/min/1.73 sqM) Est GFR (CKD-EPI)NonAf (>60 ml/min/1.73 sqM) Glucose (74-99) mg/dL Calcium (8.4-10.2) mg/dL Total Bilirubin (0.2-1.3) mg/dL AST (14-36) U/L ALT (9-52) U/L Alkaline Phosphatase (38-126) U/L Total Protein (6.3-8.2) g/dL Albumin (3.5-5.0) g/dL Amylase (30-110) U/L Lipase (23-300) U/L Urine Color Light Yellow Urine Appearance Cloudy H (Clear) Urine pH 8.0 (5.0-8.0) Ur Specific Fisher 1.010 (1.001-1.035) Urine Protein Negative (Negative) Urine Glucose (UA) Negative (Negative) Urine Ketones Negative (Negative) Urine Blood Negative (Negative) Urine Nitrite Positive H (Negative) Urine Bilirubin Negative (Negative) Urine Urobilinogen <2.0 (<2.0) mg/dL Ur Leukocyte Esterase Small H (Negative) Urine RBC 1 (0-5) /hpf Urine WBC 32 H (0-5) /hpf Ur Squamous Epith Cells <1 (0-4) /hpf Uric Acid Crystals Few H (None) /hpf Amorphous Sediment Occasional H (None) /hpf Urine Bacteria Rare H (None) /hpf - Radiology Data Radiology results: image reviewed (Computed tomography scan of the abdomen pelvis concerning for partial small bowel obstruction) Disposition Clinical Impression: Partial small bowel obstruction Disposition: ADMITTED IP TO THIS [facility] Is patient prescribed a controlled substance at d/c from ED?: No Referrals: Nita Rice MD [Primary Care Provider] - 1-2 days Decision Time: 10:38
[2019-07-09 09:00] LABS: INR 0.9 (<1.2); Partial Thromboplastin Time 23.1 sec (22.0-30.0); Prothrombin Time 9.7 sec (9.0-12.0)
[2019-07-09 09:03] LABS: Albumin 4.2 g/dL (3.5-5.0); Calcium 10.2 mg/dL (8.4-10.2); Potassium 4.5 mmol/L (3.5-5.1); Total Bilirubin 0.4 mg/dL (0.2-1.3); Total Protein 7.4 g/dL (6.3-8.2)
[2019-07-09 09:11] LABS: Amorphous Sediment,Urine Occasional /hpf; Appearance,Urine Cloudy (Clear); Bacteria,Urine Rare /hpf; Bilirubin,Urine Negative (Negative); Blood,Urine Negative (Negative); Color,Urine Light Yellow; Glucose,Urine (UA) Negative (Negative); Ketones,Urine Negative (Negative); Leukocyte Esterase,Urine Small (Negative); Nitrite,Urine Positive (Negative); Protein,Urine Negative (Negative); RBC,Urine 1 /hpf (0-5); Squamous Epithelial Cell,Urine <1 /hpf (0-4); Uric Acid Crystals,Urine Few /hpf; Urobilinogen,Urine <2.0 mg/dL (<2.0); WBC,Urine 32 /hpf (0-5)
[2019-07-09 09:18] LABS: Basophils # (A) 0.1 k/uL (0-0.2); Basophils % (A) 1 %; Eosinophils # (A) 0.1 k/uL (0-0.7); Eosinophils % (A) 1 %; HCT 35.5 % (34.0-46.0); HGB 11.5 gm/dL (11.4-16.0); Hypochromasia Slight; Lymphocytes # (A) 0.6 k/uL (1.0-4.8); Lymphocytes % (A) 7 %; MCH 25.5 pg (25.0-35.0); MCHC 32.4 g/dL (31.0-37.0); MCV 78.9 fL (80.0-100.0); Monocytes # (A) 0.3 k/uL (0-1.0); Monocytes % (A) 3 %; Neutrophils # (A) 7.8 k/uL (1.3-7.7); Neutrophils % (A) 87 %; Platelet Count 259 k/uL (150-450); RDW 15.5 % (11.5-15.5); WBC 8.9 k/uL (3.8-10.6)
--- NOTE | 2019-07-09 10:03 | CT ---
EXAMINATION TYPE: CT abdomen pelvis w con DATE OF EXAM: 07/09/2019 REFERENCE: Previous study dated 10/23/2018. HISTORY: abdominal pain HISTORY: Generalized pain with vomiting CT DLP: 1225.5 mGy Automated exposure control for dose reduction was used. TECHNIQUE: Helical acquisition through the abdomen and pelvis was obtained following the oral ingesti on of without Oral Contrast and following intravenous administration of 100 mL of Isovue 300. The kee a was reformatted in axial, coronal and sagittal projections. FINDINGS: There is minimal dependent atelectasis in the dependent portions of the right lung. There is no pleural or pericardial fluid. The heart is minimally enlarged. There is a prominent hiatal hernia. Within the abdomen, the gallbladder is distended. The liver and spleen are normal. The right adrenal gland is unremarkable. There is a 2.5 x 2.1 cm left adrenal mass, unchanged from pr evious. There is stable atrophy of the right kidney. There is a tiny hypoattenuating mass in the left kidney measuring less than a centimeter unchanged from previous and too small to characterize. There is mild to moderate atheromatous calcification of the visualized arterial tree. There is no significant retroperitoneal, iliac or inguinal adenopathy. Proximal loops of small bowel are fairly normal in caliber. There are dilated loops of small bowel pr oximal to the ostomy. There is evidence of multiple previous bowel resections. There is an ostomy in the right lower quadrant. There is uncomplicated diverticular change involving the sigmoid colon with scattered diverticula els ewhere within the left side of the colon. The appendix is not visualized with certainty. No free fluid and no free air is seen. There is severe degenerative change in the right hip. Prosthesis in place on the left. IMPRESSION: 1. DISTAL PARTIAL SMALL BOWEL OBSTRUCTION PROXIMAL TO THE PATIENT'S OSTOMY. 2. PROMINENT HIATAL HERNIA. 3. STABLE LEFT ADRENAL MASS. 4. UNCOMPLICATED DIVERTICULOSIS OF THE SIGMOID COLON. 5. MULTIPLE PREVIOUS SURGERIES. 6. SEVERE DEGENERATIVE CHANGE WITHIN THE RIGHT HIP.
[2019-07-09] MEDS ORDERED: HYDROmorphone 1 MG/ML 1 ML SYRINGE IVP PRN (10:39)
[2019-07-09] MEDS ORDERED: HYDROmorphone 0.5 MG/0.5 ML SYRINGE IVP PRN (10:39)
[2019-07-09] MEDS ORDERED: NALOXONE 0.4 MG/ML 1 ML VIAL IV PRN (10:39)
[2019-07-09] MEDS ORDERED: ONDANSETRON 4 MG/2 ML VIAL IVP PRN (10:39)
[2019-07-09] MEDS ORDERED: KETOROLAC 30 MG/ML 1 ML VIAL IVP PRN (13:14)
[2019-07-09] MEDS ORDERED: traMADol 50 MG TAB PO PRN (13:14)
[2019-07-09] MEDS ORDERED: ZOLPIDEM 5 MG TAB PO PRN (13:14)
--- NOTE | 2019-07-09 13:19 | P.HPIM ---
History of Present Illness 73-year-old pleasant female came in with the diffuse abdominal discomfort moderate amount of pain predominantly in the right lower quadrant below the ileostomy. Sharp in nature associated nausea vomiting patient is presently not nausea ceftezole from. Patient had partial small bowel obstruction the past seems to have the same problem now. Patient had a CAT scan of the abdomen and pelvis which showed partial small bowel obstruction patient was started on IV fluids. Patient had partial small bowel obstruction in the past. Patient is minimally elevated lipase not significantly high enough to say pancreatitis at this time no evidence of pancreatitis at this time. He feels his body aches. Patient had a bowel movement today does have sluggish are absent bowel sounds normal. Presently doesn't have any injury to Review of Systems REVIEW OF SYSTEMS: CONSTITUTIONAL: No fever, no malaise, no fatigue. HEENT: No recent visual problems or hearing problems. Denied any sore throat. CARDIOVASCULAR: No chest pain, orthopnea, PND, no palpitations, no syncope. PULMONARY: No shortness of breath, no cough, no hemoptysis. GASTROINTESTINAL: As mentioned in HPI NEUROLOGICAL: No headaches, no weakness, no numbness. HEMATOLOGICAL: Denies any bleeding or petechiae. GENITOURINARY: Denies any burning micturition, frequency, or urgency. MUSCULOSKELETAL/RHEUMATOLOGICAL: Denies any joint pain, swelling, or any muscle pain. ENDOCRINE: Denies any polyuria or polydipsia. The rest of the 14-point review of systems is negative. Past Medical History Past Medical History: Atrial Fibrillation, Cancer, GERD/Reflux, Hyperlipidemia, Hypertension, Osteoarthritis (OA) Additional Past Medical History / Comment(s): bladder cancer with urostomy, Small Bowel Obstruction, vertigo History of Any Multi-Drug Resistant Organisms: None Reported Past Surgical History: Ablation, Bladder Surgery, Heart Catheterization, Hernia Repair, Hysterectomy, Orthopedic Surgery, Pacemaker, Tonsillectomy Additional Past Surgical History / Comment(s): LEFT HIP SURGERY x 3, GRAFTS AND MARNIE, CARDIOVERSION, urostomy Past Anesthesia/Blood Transfusion Reactions: Previous Problems w/ Anesthesia Additional Past Anesthesia/Blood Transfusion Reaction / Comment(s): asthma attack Type of Cardiac Device: Permanent Pacemaker Device Placement Date:: 2006 Past Psychological History: No Psychological Hx Reported Smoking Status: Former smoker Past Alcohol Use History: None Reported Past Drug Use History: None Reported - Past Family History Mother Additional Family Medical History / Comment(s): divertic Father Family Medical History: Hyperlipidemia Medications and Allergies Home Medications Medication Instructions Recorded Confirmed Type Omeprazole [PriLOSEC] 20 mg PO Q48H 02/05/15 07/09/19 History traMADol HCl [Ultram] 50 mg PO DAILY PRN 02/05/15 07/09/19 History Furosemide [Lasix] 40 mg PO HS 09/01/16 07/09/19 History Meclizine [Antivert] 25 mg PO DAILY PRN 09/01/16 07/09/19 History Ondansetron [Zofran] 4 mg PO Q6H PRN 09/01/16 07/09/19 History Potassium Chloride [K-Tab ER] 10 meq PO Q48H 09/01/16 07/09/19 History Propafenone HCl 150 mg PO BID 09/01/16 07/09/19 History Zolpidem [Ambien] 5 mg PO HS PRN 09/01/16 07/09/19 History Metoprolol Tartrate [Lopressor] 25 mg PO BID #60 tab 12/21/16 07/09/19 Rx Aspirin EC [Ecotrin] 325 mg PO DAILY 07/09/19 07/09/19 History Ibuprofen [Motrin] 800 mg PO DAILY 07/09/19 07/09/19 History Allergies Allergy/AdvReac Type Severity Reaction Status Date / Time ether Allergy Anaphylaxis Verified 07/09/19 09:07 tetanus and diphtheria Allergy Unknown Verified 07/09/19 09:07 toxoids [tetanus & diphtheria toxoids] codeine AdvReac Nausea Verified 07/09/19 09:07 Physical Exam Vitals: Vital Signs Temp Pulse Resp BP Pulse Ox 07/09/19 12:04 70 18 126/73 100 07/09/19 10:19 72 18 132/82 100 07/09/19 09:05 78 18 139/72 100 07/09/19 07:32 98.7 F 78 18 149/88 100 Intake and Output 07/08/19 07/09/19 07/09/19 22:59 06:59 14:59 Other: Voiding Method Ileal Conduit (Right) Weight 81.647 kg PHYSICAL EXAMINATION: GENERAL: The patient is alert and oriented x3, not in any acute distress. Well d eveloped, well nourished. HEENT: Pupils are round and equally reacting to light. EOMI. No scleral icterus. No conjunctival pallor. Normocephalic, atraumatic. No pharyngeal erythema. No thyromegaly. CARDIOVASCULAR: S1 and S2 present. No murmurs, rubs, or gallops. PULMONARY: Chest is clear to auscultation, no wheezing or crackles. ABDOMEN: Soft, nontender, nondistended, sluggish bowel sounds ileostomy in place MUSCULOSKELETAL: No joint swelling or deformity. EXTREMITIES: No cyanosis, clubbing, or pedal edema. NEUROLOGICAL: Gross neurological examination did not reveal any focal deficits. SKIN: No rashes. Results CBC & Chem 7: 07/09/19 07:50 07/09/19 07:50 Labs: Abnormal Lab Results - Last 24 Hours (Table) 07/09/19 07/09/19 07/09/19 Range/Units 07:50 07:50 07:50 MCV 78.9 L (80.0-100.0) fL Neutrophils # 7.8 H (1.3-7.7) k/uL Lymphocytes # 0.6 L (1.0-4.8) k/uL BUN 23 H (7-17) mg/dL Glucose 121 H (74-99) mg/dL Alkaline Phosphatase 132 H (38-126) U/L Lipase 535 H (23-300) U/L Urine Appearance Cloudy H (Clear) Urine Nitrite Positive H (Negative) Ur Leukocyte Esterase Small H (Negative) Urine WBC 32 H (0-5) /hpf Uric Acid Crystals Few H (None) /hpf Amorphous Sediment Occasional H (None) /hpf Urine Bacteria Rare H (None) /hpf Assessment and Plan Plan: -Possible partial small bowel obstruction appears to have physiologic obstruction, nothing by mouth IV fluids if needed NG tube patient is unable to tolerate NG tube in the past because of her hiatal hernia. -Mild acute renal failure. His dizziness and nausea vomiting fluids as mentioned above -Atrial fibrillation presently rate controlled patient is not on anticoagulation will check with the patient reason behind not being started on anticoagulation. -Bladder cancer with urostomy in place. -Coronary artery disease -Gastroesophageal reflux disease 7 hypertension Due to prophylaxis with subcutaneous heparin GI prophylaxis with Protonix
--- NOTE | 2019-07-09 13:34 | P.GSCN ---
History of Present Illness Consult date: 07/09/19 Reason for Consult: abdominal pain History of present illness: The patient is a 73 -year-old female who presented to the emergency department w ith abdominal pain. She has a history of intermittent small bowel obstructions. This is been occurring since her cystectomy with ileal conduit about 8 years ago. Last admission was October 2018. She began having some sharp abdominal pain this morning with nausea and vomiting. Last episode of emesis was about 8 AM. Her bowel movements have been normal. She did have a bowel movement today. Her urostomy has been working well. Denies fevers or chills Review of Systems All systems: negative Past Medical History Past Medical History: Atrial Fibrillation, Cancer, GERD/Reflux, Hyperlipidemia, Hypertension, Osteoarthritis (OA) Additional Past Medical History / Comment(s): bladder cancer with urostomy, Small Bowel Obstruction, vertigo History of Any Multi-Drug Resistant Organisms: None Reported Past Surgical History: Ablation, Bladder Surgery, Heart Catheterization, Hernia Repair, Hysterectomy, Orthopedic Surgery, Pacemaker, Tonsillectomy Additional Past Surgical History / Comment(s): LEFT HIP SURGERY x 3, GRAFTS AND MARNIE, CARDIOVERSION, urostomy Past Anesthesia/Blood Transfusion Reactions: Previous Problems w/ Anesthesia Additional Past Anesthesia/Blood Transfusion Reaction / Comm: asthma attack Type of Cardiac Device: Permanent Pacemaker Device Placement Date:: 2006 Past Psychological History: No Psychological Hx Reported Smoking Status: Former smoker Past Alcohol Use History: None Reported Past Drug Use History: None Reported - Past Family History Mother Additional Family Medical History / Comment(s): divertic Father Family Medical History: Hyperlipidemia Medications and Allergies Home Medications Medication Instructions Recorded Confirmed Type Omeprazole [PriLOSEC] 20 mg PO Q48H 02/05/15 07/09/19 History traMADol HCl [Ultram] 50 mg PO DAILY PRN 02/05/15 07/09/19 History Furosemide [Lasix] 40 mg PO HS 09/01/16 07/09/19 History Meclizine [Antivert] 25 mg PO DAILY PRN 09/01/16 07/09/19 History Ondansetron [Zofran] 4 mg PO Q6H PRN 09/01/16 07/09/19 History Potassium Chloride [K-Tab ER] 10 meq PO Q48H 09/01/16 07/09/19 History Propafenone HCl 150 mg PO BID 09/01/16 07/09/19 History Zolpidem [Ambien] 5 mg PO HS PRN 09/01/16 07/09/19 History Metoprolol Tartrate [Lopressor] 25 mg PO BID #60 tab 12/21/16 07/09/19 Rx Aspirin EC [Ecotrin] 325 mg PO DAILY 07/09/19 07/09/19 History Ibuprofen [Motrin] 800 mg PO DAILY 07/09/19 07/09/19 History Allergies Allergy/AdvReac Type Severity Reaction Status Date / Time ether Allergy Anaphylaxis Verified 07/09/19 09:07 tetanus and diphtheria Allergy Unknown Verified 07/09/19 09:07 toxoids [tetanus & diphtheria toxoids] codeine AdvReac Nausea Verified 07/09/19 09:07 Surgical - Exam Osteopathic Statement: *. No significant issues noted on an osteopathic structural exam other than those noted in the History and Physical/Consult. Vital Signs Temp Pulse Resp BP Pulse Ox 98.7 F 78 18 149/88 100 07/09/19 07:32 07/09/19 07:32 07/09/19 07:32 07/09/19 07:32 07/09/19 07:32 - General well developed, well nourished, no distress - Eyes normal ocular movement - Neck trachea midline - Respiratory normal expansion, normal respiratory effort, clear to auscultation - Abdomen Right lower quadrant urostomy with clear yellow urine Abdomen: soft, tender (Mild that abdominal tenderness), bowel sounds, no guarding, no rigid, no rebound, no distended - Psychiatric oriented to time, oriented to person, oriented to place, speech is normal, memory intact Results - Labs 07/09/19 07:50 07/09/19 07:50 Abnormal Lab Results - Last 24 Hours (Table) 07/09/19 07/09/19 07/09/19 Range/Units 07:50 07:50 07:50 MCV 78.9 L (80.0-100.0) fL Neutrophils # 7.8 H (1.3-7.7) k/uL Lymphocytes # 0.6 L (1.0-4.8) k/uL BUN 23 H (7-17) mg/dL Glucose 121 H (74-99) mg/dL Alkaline Phosphatase 132 H (38-126) U/L Lipase 535 H (23-300) U/L Urine Appearance Cloudy H (Clear) Urine Nitrite Positive H (Negative) Ur Leukocyte Esterase Small H (Negative) Urine WBC 32 H (0-5) /hpf Uric Acid Crystals Few H (None) /hpf Amorphous Sediment Occasional H (None) /hpf Urine Bacteria Rare H (None) /hpf Diabetes panel 07/09/19 Range/Units 07:50 Sodium 141 (137-145) mmol/L Potassium 4.5 (3.5-5.1) mmol/L Chloride 105 (98-107) mmol/L Carbon Dioxide 28 (22-30) mmol/L BUN 23 H (7-17) mg/dL Creatinine 1.01 (0.52-1.04) mg/dL Glucose 121 H (74-99) mg/dL Calcium 10.2 (8.4-10.2) mg/dL AST 18 (14-36) U/L ALT 15 (9-52) U/L Alkaline Phosphatase 132 H (38-126) U/L Total Protein 7.4 (6.3-8.2) g/dL Albumin 4.2 (3.5-5.0) g/dL Calcium panel 07/09/19 Range/Units 07:50 Calcium 10.2 (8.4-10.2) mg/dL Albumin 4.2 (3.5-5.0) g/dL Pituitary panel 07/09/19 Range/Units 07:50 Sodium 141 (137-145) mmol/L Potassium 4.5 (3.5-5.1) mmol/L Chloride 105 (98-107) mmol/L Carbon Dioxide 28 (22-30) mmol/L BUN 23 H (7-17) mg/dL Creatinine 1.01 (0.52-1.04) mg/dL Glucose 121 H (74-99) mg/dL Calcium 10.2 (8.4-10.2) mg/dL Adrenal panel 07/09/19 Range/Units 07:50 Sodium 141 (137-145) mmol/L Potassium 4.5 (3.5-5.1) mmol/L Chloride 105 (98-107) mmol/L Carbon Dioxide 28 (22-30) mmol/L BUN 23 H (7-17) mg/dL Creatinine 1.01 (0.52-1.04) mg/dL Glucose 121 H (74-99) mg/dL Calcium 10.2 (8.4-10.2) mg/dL Total Bilirubin 0.4 (0.2-1.3) mg/dL AST 18 (14-36) U/L ALT 15 (9-52) U/L Alkaline Phosphatase 132 H (38-126) U/L Total Protein 7.4 (6.3-8.2) g/dL Albumin 4.2 (3.5-5.0) g/dL - Imaging CT scan - abdomen: report reviewed, image reviewed Assessment and Plan (1) History of ileal conduit Current Visit: Yes Status: Acute Code(s): Z98.890 - OTHER SPECIFIED POSTPR OCEDURAL STATES SNOMED Code(s): 877094936 (2) Partial small bowel obstruction Current Visit: Yes Status: Acute Code(s): K56.69 - OTHER INTESTINAL OBSTRUCTION * DO NOT USE * SNOMED Code(s): 329461795 Plan: The patient's pain is improved with the pain medication and antibiotics. She's had no vomiting since this morning. Typically there is some significant difficulty getting a nasogastric tube placed. Therefore we'll hold off on NG tube placement. Make her nothing by mouth. Hydrate. Pain control and antiemetics. Serial exams. This will likely resolve without surgery.
[2019-07-09 14:21] VITALS: BMI 31.2
[2019-07-09] MEDS: SODIUM CHLORIDE 0.9% 1,000 ML IV SCH ×2 (15:08→19:49)
[2019-07-09] MEDS: HEPARIN SODIUM,PORCINE 5,000 UNIT/ML 1 ML VIAL SQ SCH (17:43)
[2019-07-09] MEDS: PROPAFENONE 150 MG TAB PO SCH (20:46)
[2019-07-09] MEDS: METOPROLOL TARTRATE 25 MG TAB PO SCH (20:46)
[2019-07-10] MEDS: HEPARIN SODIUM,PORCINE 5,000 UNIT/ML 1 ML VIAL SQ SCH ×3 (00:35→17:59)
[2019-07-10] MEDS: SODIUM CHLORIDE 0.9% 1,000 ML IV SCH ×2 (04:28→13:14)
[2019-07-10 07:58] LABS: Potassium 4.4 mmol/L (3.5-5.1)
[2019-07-10 08:27] LABS: Basophils # (A) 0.1 k/uL (0-0.2); Basophils % (A) 1 %; Eosinophils # (A) 0.1 k/uL (0-0.7); Eosinophils % (A) 3 %; HCT 30.9 % (34.0-46.0); Hypochromasia Moderate; Lymphocytes # (A) 0.7 k/uL (1.0-4.8); Lymphocytes % (A) 16 %; MCH 25.7 pg (25.0-35.0); MCHC 31.5 g/dL (31.0-37.0); MCV 81.6 fL (80.0-100.0); Monocytes # (A) 0.3 k/uL (0-1.0); Monocytes % (A) 6 %; Neutrophils # (A) 2.8 k/uL (1.3-7.7); Neutrophils % (A) 70 %; Platelet Count 194 k/uL (150-450); RBC 3.79 m/uL (3.80-5.40); RDW 15.4 % (11.5-15.5)
[2019-07-10 08:39] LABS: HGB 9.7 gm/dL (11.4-16.0)
[2019-07-10] MEDS: METOPROLOL TARTRATE 25 MG TAB PO SCH (08:54)
[2019-07-10] MEDS: PROPAFENONE 150 MG TAB PO SCH (08:54)
[2019-07-10] MEDS ORDERED: PANTOPRAZOLE 40 MG/10 ML VIAL IV SCH (09:00)
[2019-07-10] MEDS ORDERED: ASPIRIN 81 MG PO SCH (09:00)
--- NOTE | 2019-07-10 11:40 | P.DS ---
Providers Date of admission: 07/09/19 10:39 Attending physician: Allyson Navarrete Consults: 07/09/19 10:48 Consult Physician Urgent Consulting Provider: Cyndy Melo Consult Reason/Comments: partial sbo Do you want consulting provider notified?: Yes Primary care physician: Krystal Yanes [facility] Course: 73-year-old pleasant female came in with the diffuse abdominal discomfort moderate amount of pain predominantly in the right lower quadrant below the ileostomy. Sharp in nature associated nausea vomiting patient is presently not nausea ceftezole from. Patient had partial small bowel obstruction the past seems to have the same problem now. Patient had a CAT scan of the abdomen and pelvis which showed partial small bowel obstruction patient was started on IV fluids. Patient had partial small bowel obstruction in the past. Patient is minimally elevated lipase not significantly high enough to say pancreatitis at this time no evidence of pancreatitis at this time. He feels his body aches. Patient had a bowel movement today does have sluggish are absent bowel sounds normal. 07/10/2019 Patient is clinically doing well symptoms resolved patient does have good bowel sounds patient will be started on diet will advance it if patient is able to tolerate diet well patient will be discharged today. Patient's hemoglobin is down because of IV fluids and hemodiluted 3 affect no evidence of clinical GI bleed. Lasix will be switched on as-needed basis or pedal edema patient was asked to use compression socks for hospitalization edema. Patient doesn't have any history of congestive heart failure. is requesting antibiotic for possible urinary tract infection patient reviewed and 3 days of Ceftin PHYSICAL EXAMINATION: GENERAL: The patient is alert and oriented x3, not in any acute distress. Well developed, well nourished. HEENT: Pupils are round and equally reacting to light. EOMI. No scleral icterus. No conjunctival pallor. Normocephalic, atraumatic. No pharyngeal erythema. No thyromegaly. CARDIOVASCULAR: S1 and S2 present. No murmurs, rubs, or gallops. PULMONARY: Chest is clear to auscultation, no wheezing or crackles. ABDOMEN: Soft, nontender, nondistended, sluggish bowel sounds ileostomy in place MUSCULOSKELETAL: No joint swelling or deformity. EXTREMITIES: No cyanosis, clubbing, or pedal edema. NEUROLOGICAL: Gross neurological examination did not reveal any focal deficits. SKIN: No rashes. Assessment and Plan Plan: - partial small bowel obstruction, improved with conservative management and patient will be advanced and if she is able to tolerate patient will be discharged today -Mild acute renal failure. Improved with IV fluids and holding off on diuretic therapy. -Atrial fibrillation presently rate controlled patient is not on anticoagulation which will be continued. -Bladder cancer with urostomy in place. With the possibility of urinary tract infection 3 days of Ceftin -Coronary artery disease -Gastroesophageal reflux disease 7 hypertension Plan - Discharge Summary Discharge Rx Participant: Yes New Discharge Prescriptions: Continue traMADol HCl [Ultram] 50 mg PO DAILY PRN PRN Reason: Pain Omeprazole [PriLOSEC] 20 mg PO Q48H Zolpidem [Ambien] 5 mg PO HS PRN PRN Reason: Insomnia Potassium Chloride [K-Tab ER] 10 meq PO Q48H Meclizine [Antivert] 25 mg PO DAILY PRN PRN Reason: Vertigo Ondansetron [Zofran] 4 mg PO Q6H PRN PRN Reason: Nausea Propafenone HCl 150 mg PO BID Metoprolol Tartrate [Lopressor] 25 mg PO BID #60 tab Changed Furosemide [Lasix] 40 mg PO DAILY #0 Discontinued Ibuprofen [Motrin] 800 mg PO DAILY Aspirin EC [Ecotrin] 325 mg PO DAILY Discharge Medication List Omeprazole [PriLOSEC] 20 mg PO Q48H 02/05/15 [History] traMADol HCl [Ultram] 50 mg PO DAILY PRN 02/05/15 [History] Meclizine [Antivert] 25 mg PO DAILY PRN 09/01/16 [History] Ondansetron [Zofran] 4 mg PO Q6H PRN 09/01/16 [History] Potassium Chloride [K-Tab ER] 10 meq PO Q48H 09/01/16 [History] Propafenone HCl 150 mg PO BID 09/01/16 [History] Zolpidem [Ambien] 5 mg PO HS PRN 09/01/16 [History] Metoprolol Tartrate [Lopressor] 25 mg PO BID #60 tab 12/21/16 [Rx] Furosemide [Lasix] 40 mg PO DAILY #0 07/10/19 [Rx] Follow up Appointment(s)/Referral(s): Nita Rice MD [Primary Care Provider] - 3 Days
[2019-07-10 12:27] VITALS: BP 120/78; PULSE 64; TEMP 98.6
--- NOTE | 2019-07-10 12:32 | P.PN ---
Progress Note - Text Progress Note Date: 07/10/19 The patient is feeling much better today. No nausea or vomiting. The pain is improved. Physical exam: Abdomen soft, positive bowel sounds, no tenderness, guarding, rebound Assessment: Incomplete small bowel obstruction/resolving Plan: Patient is nonsurgical. Advance diet as tolerated. I will follow up as needed.
[2019-07-10 16:51] VITALS: RESP 17
[2019-07-11] MEDS ORDERED: PANTOPRAZOLE 40 MG TABLET PO SCH (07:30)
--- NOTE | 2019-07-12 12:47 | CDI ---
Documentation Clarification Form Date: 07/12/2019 From: Teresa Mcgraw Phone: If questions call Bozena Sigala @ [phone], Hours-8:30 am & 5 pm M- Jorge Admit Date: 07/09/2019 10:39:00 AM Patient Name: Mckenna Foster Visit Number: [id number] Discharge Date: 07/10/2019 6:54:00 PM ATTENTION: The Clinical Documentation Specialists (CDI) and [facility] Coding Staff appreciate your assistance in clarifying documentation. Please respond to the clarification below the line at the bottom and electronically sign. The CDI & [facility] Coding staff will review the response and follow-up if needed. Please note: Queries are made part of the Legal Health Record. If you have any questions, please contact the author of this message via ITS. Dr. Allyson Navarreet Acute renal injury was documented in the H&P and DS. History/Risk Factors:small bowel obstruction, urostomy, atrial fib, hx bladder ca BUN:23, 16 CR: 1.01, 0.83 GFR: 55, 70 Treatment: IV fluid hydration and renal function KIDGO defines CRUZ as the occurrence of any 1 of the following: Increase in serum creatinine level by 0.3 mg/dl, measured prospectively by at least 2 separate levels obtained within 48 hrs, or Increase in serum creatinine level to 1.5 times baseline or greater, which is known or presumed to have occurred within the prior 7 days, or A urine volume of less than 0.5 ml/kg/h for 6 hours or longer. In order to capture the severity of condition, please clarify if the condition signifies: Acute kidney injury ruled in Acute kidney injury ruled out Other, please specify Unable to determine Please continue to document in your progress notes and discharge summary in order to capture severity of illness and risk of mortality. Include clinical findings that support your diagnosis. As per my documentation, no additional changes. KATEYD
== END 2019-07-10 18:54 | disposition home or self-care (01) | DRG 389 ==
LOC: EC 07:26 → 3NMEDONC 10:39
PROVIDERS: ADMIT Internal Medicine; ATTEND Internal Medicine
DX: K56.600 Partial intestinal obstruction, unspecified as to cause (principal); N17.9 Acute kidney failure, unspecified; I48.91 Unspecified atrial fibrillation; K21.9 Gastro-esophageal reflux disease without esophagitis; K52.9 Noninfective gastroenteritis and colitis, unspecified; E78.5 Hyperlipidemia, unspecified; K44.9 Diaphragmatic hernia without obstruction or gangrene; I25.10 Atherosclerotic heart disease of native coronary artery without angina pectoris; J45.909 Unspecified asthma, uncomplicated; I10 Essential (primary) hypertension; M19.90 Unspecified osteoarthritis, unspecified site; Z79.82 Long term (current) use of aspirin; Z79.1 Long term (current) use of non-steroidal anti-inflammatories (NSAID); Z79.899 Other long term (current) drug therapy; Z93.6 Other artificial openings of urinary tract status; Z87.891 Personal history of nicotine dependence; Z85.51 Personal history of malignant neoplasm of bladder; Z90.710 Acquired absence of both cervix and uterus; Z95.0 Presence of cardiac pacemaker; Z98.890 Other specified postprocedural states; Z88.4 Allergy status to anesthetic agent; Z88.5 Allergy status to narcotic agent; Z88.7 Allergy status to serum and vaccine; Z83.79 Family history of other diseases of the digestive system
CPT/HCPCS: 36415; 74177; 80048; 80053; 81001; 82150; 83690; 85025; 85610; 85730; 87077; 87086; 87186; 96361; 96374; 96375; 96376; 99285

== ENCOUNTER 2019-10-15 06:40 | Inpatient (IN) | payer MEDICARE, OTHER ==
[2019-10-15] MEDS ORDERED: SODIUM CHLORIDE 0.9% 500 ML 500 ML IV STA (06:53)
[2019-10-15] MEDS ORDERED: FUROSEMIDE 10 MG/ML 4 ML VIAL IV STA (06:53)
[2019-10-15] MEDS ORDERED: ALBUTEROL NEBULIZED 2.5 MG/3 ML INHALATION STA (06:56)
[2019-10-15] MEDS ORDERED: ACETAMINOPHEN TAB 500 MG TAB PO STA (07:00)
[2019-10-15] MEDS ORDERED: IBUPROFEN 600 MG TAB PO STA (07:00)
--- NOTE | 2019-10-15 07:01 | ED ---
SOB HPI - General Source: patient, EMS, RN notes reviewed, old records reviewed Mode of arrival: EMS Limitations: no limitations <Marci Paul - Last Filed: 10/15/19 09:31> <Ella Randhawa - Last Filed: 10/16/19 21:43> - General Chief Complaint: Shortness of Breath Stated Complaint: SLADE Time Seen by Provider: 10/15/19 06:42 - History of Present Illness Initial Comments: Patient is a 73-year-old female, she presents emergency department today with treatment shortness of breath starting this morning at 5:00. She does have history of asthma. Patient states that she called EMS. On EMS arrival they did give her a DuoNeb and slight Medrol. She does have some improvement of her breathing since then. Patient states that she's had no recent fevers or chills. She denies any significant cough. reports that she has been having some right-sided chest pain and substernal chest pain starting the past 2 days and worse with taking a deep breath. Patient states that she has lower extremity swelling. Patient has had no history of fevers or chills. She denies abdominal pain. She does complain of some substernal chest pain. Patient states that she's had cardiac history of A. fib, has a pacemaker placed and had a history of cardiac ablation. Patient also reports that she has history of urostomy, after bladder cancer. Patient states that she's been dealing with intermittent infections. (Marci Paul) - Related Data Home Medications Medication Instructions Recorded Confirmed Omeprazole [PriLOSEC] 20 mg PO Q48H 02/05/15 10/15/19 traMADol HCl [Ultram] 50 mg PO DAILY PRN 02/05/15 10/15/19 Meclizine [Antivert] 25 mg PO DAILY PRN 09/01/16 10/15/19 Ondansetron [Zofran] 4 mg PO Q6H PRN 09/01/16 10/15/19 Potassium Chloride [K-Tab ER] 10 meq PO DAILY 09/01/16 10/15/19 Propafenone HCl 150 mg PO BID 09/01/16 10/15/19 Zolpidem [Ambien] 5 mg PO HS PRN 09/01/16 10/15/19 Aspirin 81 mg PO DAILY 10/15/19 10/15/19 Furosemide [Lasix] 20 mg PO DAILY 10/15/19 10/15/19 Melatonin 10 mg PO HS PRN 10/15/19 10/15/19 Previous Rx's Medication Instructions Recorded Metoprolol Tartrate [Lopressor] 25 mg PO BID #60 tab 12/21/16 Allergies Allergy/AdvReac Type Severity Reaction Status Date / Time ether Allergy Anaphylaxis Verified 10/15/19 06:51 tetanus and diphtheria Allergy Unknown Verified 10/15/19 06:51 toxoids [tetanus & diphtheria toxoids] codeine AdvReac Nausea Verified 10/15/19 06:51 Review of Systems ROS Other: All systems not noted in ROS Statement are negative. <Marci Paul - Last Filed: 10/15/19 09:31> ROS Other: All systems not noted in ROS Statement are negative. <Ella Randhawa - Last Filed: 10/16/19 21:43> ROS Statement: Those systems with pertinent positive or pertinent negative responses have been documented in the HPI. Past Medical History Past Medical History: Atrial Fibrillation, Cancer, GERD/Reflux, Hypertension, Osteoarthritis (OA) Additional Past Medical History / Comment(s): bladder cancer with urostomy, Small Bowel Obstruction, vertigo History of Any Multi-Drug Resistant Organisms: None Reported Past Surgical History: Ablation, Bladder Surgery, Heart Catheterization, Hernia Repair, Hysterectomy, Orthopedic Surgery, Pacemaker, Tonsillectomy Additional Past Surgical History / Comment(s): LEFT HIP SURGERY x 3, GRAFTS AND MARNIE 2015, ablasion CARDIOVERSION, urostomy 10/2010, cataracts 2017 Past Anesthesia/Blood Transfusion Reactions: Previous Problems w/ Anesthesia Additional Past Anesthesia/Blood Transfusion Reaction / Comment(s): asthma attack Type of Cardiac Device: Permanent Pacemaker Device Placement Date:: 2006 Past Psychological History: Anxiety, Depression Smoking Status: Former smoker Past Alcohol Use History: None Reported Past Drug Use History: None Reported - Past Family History Mother Family Medical History: Asthma, GERD/Reflux Additional Family Medical History / Comment(s): diverticlitus, glaucoma Father Family Medical History: Hyperlipidemia Additional Family Medical History / Comment(s): stroke, <Marci Paul - Last Filed: 10/15/19 09:31> General Exam Limitations: no limitations General appearance: alert, in no apparent distress Head exam: Present: atraumatic, normocephalic, normal inspection Eye exam: Present: normal appearance, PERRL, EOMI. Absent: scleral icterus, conjunctival injection, periorbital swelling ENT exam: Present: normal exam, mucous membranes moist Neck exam: Present: normal inspection. Absent: tenderness, meningismus, lymphadenopathy Respiratory exam: Present: wheezes, decreased breath sounds. Absent: normal lung sounds bilaterally, respiratory distress, rales, rhonchi, stridor Cardiovascular Exam: Present: regular rate, normal rhythm, normal heart sounds. Absent: systolic murmur, diastolic murmur, rubs, gallop, clicks GI/Abdominal exam: Present: soft, normal bowel sounds, other (Patient has urostomy bag.). Absent: distended, tenderness, guarding, rebound, rigid Extremities exam: Present: normal inspection, full ROM, normal capillary refill, pedal edema. Absent: tenderness, joint swelling, calf tenderness Back exam: Present: normal inspection Neurological exam: Present: alert, oriented X3, CN II-XII intact Psychiatric exam: Present: normal affect, normal mood Skin exam: Present: warm, dry, intact, normal color. Absent: rash <Marci Paul - Last Filed: 10/15/19 09:31> - General Exam Comments Initial Comments: 33-year-old female. Alert and oriented 3. (Marci Paul) Course Vital Signs 10/15/19 10/15/19 10/15/19 06:42 06:51 07:40 Temperature 101.2 F H 100.7 F H Pulse Rate 76 73 Respiratory 20 22 18 Rate Blood Pressure 153/82 131/83 O2 Sat by Pulse 100 98 Oximetry 10/15/19 10/15/19 10/15/19 08:06 08:15 10:24 Temperature 98.9 F Pulse Rate 71 77 78 Respiratory 18 Rate Blood Pressure 125/66 O2 Sat by Pulse 98 Oximetry Medical Decision Making - Lab Data Result diagrams: 10/15/19 07:12 10/15/19 07:12 - Radiology Data Radiology results: report reviewed <Marci Paul - Last Filed: 10/15/19 09:31> - Lab Data Result diagrams: 10/16/19 06:45 10/16/19 06:45 <Ella Randhawa - Last Filed: 10/16/19 21:43> - Medical Decision Making 73-year-old female presents emergency room today with worsening shortness of breath and wheezing starting at 5 AM. Patient did have diminished lung sounds and wheezing. She started on IV fluids labwork obtained. No significant leukocytosis. She does have an elevated lactic acid of 2.1. Patient did have diminished lung sounds bilaterally worse on the right. Chest x-ray shows concern prophylaxis versus pneumonia. She did have a fever 102. Influenza is negative. Chemistry panel is otherwise unremarkable. She did have a positive d-dimer so CAT scan was completed. There is evidence of consolidation) pneumonia versus atelectasis. Patient was informed of these findings. I discussed it would like to admit the Patient for breathing treatments and discussed with a also a necklace urine sample from her. She is currently awaiting urostomy supplies from her daughter to collect a clean sample she's had this urostomy bag on for a few weeks. Patient was given Rocephin and azithromycin emergency department. After breathing treatment plan Medrol she has been breathing more comfortably. Discussed the case with Dr. Webster discussed case with [facility]. (Marci Paul) I was available for consultation in the emergency department. The history and physical exam were done by the midlevel provider. I was consulted for this patients care. I reviewed the case with the midlevel provider and based on their presentation of the patient, I agree with the assessment, medical decision making and plan of care as documented. I discussed the case with the admitting physician who accepted admission. Chart was dictated using [employer] dictation software. Attempts were made to correct any dictation errors however some typographical errors may persist. (Ella Randhawa) - Lab Data Lab Results 10/15/19 10/15/19 10/15/19 Range/Units 06:53 07:12 07:12 WBC 6.6 (3.8-10.6) k/uL RBC 4.49 (3.80-5.40) m/uL Hgb 11.1 L (11.4-16.0) gm/dL Hct 35.9 (34.0-46.0) % MCV 79.8 L (80.0-100.0) fL MCH 24.7 L (25.0-35.0) pg MCHC 30.9 L (31.0-37.0) g/dL RDW 14.3 (11.5-15.5) % Plt Count 213 (150-450) k/uL Neutrophils % 85 % Lymphocytes % 10 % Monocytes % 2 % Eosinophils % 1 % Basophils % 0 % Neutrophils # 5.6 (1.3-7.7) k/uL Lymphocytes # 0.7 L (1.0-4.8) k/uL Monocytes # 0.2 (0-1.0) k/uL Eosinophils # 0.1 (0-0.7) k/uL Basophils # 0.0 (0-0.2) k/uL Hypochromasia Slight PT (9.0-12.0) sec INR (<1.2) APTT (22.0-30.0) sec D-Dimer (<0.60) mg/L FEU Sodium 138 (137-145) mmol/L Potassium 4.1 (3.5-5.1) mmol/L Chloride 106 (98-107) mmol/L Carbon Dioxide 25 (22-30) mmol/L Anion Gap 7 mmol/L BUN 20 H (7-17) mg/dL Creatinine 0.84 (0.52-1.04) mg/dL Est GFR (CKD-EPI)AfAm 79 (>60 ml/min/1.73 sqM) Est GFR (CKD-EPI)NonAf 69 (>60 ml/min/1.73 sqM) Glucose 98 (74-99) mg/dL Lactic Ac Sepsis Rflx Plasma Lactic Acid Aidan (0.7-2.0) mmol/L Calcium 9.9 (8.4-10.2) mg/dL Magnesium 2.0 (1.6-2.3) mg/dL Total Bilirubin 0.7 (0.2-1.3) mg/dL AST 19 (14-36) U/L ALT 12 (4-34) U/L Alkaline Phosphatase 111 (38-126) U/L Troponin I (0.000-0.034) ng/mL NT-Pro-B Natriuret Pep pg/mL Total Protein 6.8 (6.3-8.2) g/dL Albumin 3.8 (3.5-5.0) g/dL Influenza Type A RNA Not Detected (Not Detectd) Influenza Type B (PCR) Not Detected (Not Detectd) 10/15/19 10/15/19 10/15/19 Range/Units 07:12 07:12 07:12 WBC (3.8-10.6) k/uL RBC (3.80-5.40) m/uL Hgb (11.4-16.0) gm/dL Hct (34.0-46.0) % MCV (80.0-100.0) fL MCH (25.0-35.0) pg MCHC (31.0-37.0) g/dL RDW (11.5-15.5) % Plt Count (150-450) k/uL Neutrophils % % Lymphocytes % % Monocytes % % Eosinophils % % Basophils % % Neutrophils # (1.3-7.7) k/uL Lymphocytes # (1.0-4.8) k/uL Monocytes # (0-1.0) k/uL Eosinophils # (0-0.7) k/uL Basophils # (0-0.2) k/uL Hypochromasia PT 9.4 (9.0-12.0) sec INR 0.9 (<1.2) APTT 21.3 L (22.0-30.0) sec D-Dimer 1.38 H (<0.60) mg/L FEU Sodium (137-145) mmol/L Potassium (3.5-5.1) mmol/L Chloride (98-107) mmol/L Carbon Dioxide (22-30) mmol/L Anion Gap mmol/L BUN (7-17) mg/dL Creatinine (0.52-1.04) mg/dL Est GFR (CKD-EPI)AfAm (>60 ml/min/1.73 sqM) Est GFR (CKD-EPI)NonAf (>60 ml/min/1.73 sqM) Glucose (74-99) mg/dL Lactic Ac Sepsis Rflx Plasma Lactic Acid Aidan (0.7-2.0) mmol/L Calcium (8.4-10.2) mg/dL Magnesium (1.6-2.3) mg/dL Total Bilirubin (0.2-1.3) mg/dL AST (14-36) U/L ALT (4-34) U/L Alkaline Phosphatase (38-126) U/L Troponin I <0.012 (0.000-0.034) ng/mL NT-Pro-B Natriuret Pep 311 pg/mL Total Protein (6.3-8.2) g/dL Albumin (3.5-5.0) g/dL Influenza Type A RNA (Not Detectd) Influenza Type B (PCR) (Not Detectd) 10/15/19 10/15/19 Range/Units 07:12 08:29 WBC (3.8-10.6) k/uL RBC (3.80-5.40) m/uL Hgb (11.4-16.0) gm/dL Hct (34.0-46.0) % MCV (80.0-100.0) fL MCH (25.0-35.0) pg MCHC (31.0-37.0) g/dL RDW (11.5-15.5) % Plt Count (150-450) k/uL Neutrophils % % Lymphocytes % % Monocytes % % Eosinophils % % Basophils % % Neutrophils # (1.3-7.7) k/uL Lymphocytes # (1.0-4.8) k/uL Monocytes # (0-1.0) k/uL Eosinophils # (0-0.7) k/uL Basophils # (0-0.2) k/uL Hypochromasia PT (9.0-12.0) sec INR (<1.2) APTT (22.0-30.0) sec D-Dimer (<0.60) mg/L FEU Sodium (137-145) mmol/L Potassium (3.5-5.1) mmol/L Chloride (98-107) mmol/L Carbon Dioxide (22-30) mmol/L Anion Gap mmol/L BUN (7-17) mg/dL Creatinine (0.52-1.04) mg/dL Est GFR (CKD-EPI)AfAm (>60 ml/min/1.73 sqM) Est GFR (CKD-EPI)NonAf (>60 ml/min/1.73 sqM) Glucose (74-99) mg/dL Lactic Ac Sepsis Rflx Y Plasma Lactic Acid Aidan 2.2 H* (0.7-2.0) mmol/L Calcium (8.4-10.2) mg/dL Magnesium (1.6-2.3) mg/dL Total Bilirubin (0.2-1.3) mg/dL AST (14-36) U/L ALT (4-34) U/L Alkaline Phosphatase (38-126) U/L Troponin I (0.000-0.034) ng/mL NT-Pro-B Natriuret Pep pg/mL Total Protein (6.3-8.2) g/dL Albumin (3.5-5.0) g/dL Influenza Type A RNA (Not Detectd) Influenza Type B (PCR) (Not Detectd) 10/15/19 07:18 EKG shows normal sinus rhythm normal ECG. Ventricular rate of 70 bpm. It was 168 ms. QT QTc is 90 ms. QT QTc is 400/432 ms. (Marci Paul) - Radiology Data Borderline to mild cardiomegaly. Diffuse interstitial prominence could reflect mild pulmonary vascular congestion bronchitis or asthma. Patchy partial cardiac and posterior basilar opacity could represent atelectasis or developing infiltrate. CT shows borderline cardiomegaly with septal lines and trace effusions. Correlate for mild pulmonary vascular congestion. Patchy basilar basilar opacities could represent infiltrates or atelectasis. If there is atelectasis in the medial basilar segment of the left lower lobe. No pulmonary emboli. 4 mm right upper lobe pulmonary nodule. 6 month follow-up CT to reassess. Moderate hiatal hernia. Gallbladder hydrops could be reflective fasting state. Read per quadrant pain are concerning for acute cholecystitis follow-up ult rasound and HIDA scan. Left adrenal nodes measuring 2.6 cm stable from 10/23/2018 CT suggestion benign adrenal adenomas. (Marci Paul) Disposition Is patient prescribed a controlled substance at d/c from ED?: No Time of Disposition: 09:34 <Marci Paul - Last Filed: 10/15/19 09:31> <Ella Randhawa - Last Filed: 10/16/19 21:43> Clinical Impression: Pneumonia, Lactic acidosis, History of urostomy Disposition: ADMITTED IP TO THIS HOSP Condition: Stable
[2019-10-15 07:25] LABS: Basophils % (A) 0 %; Eosinophils # (A) 0.1 k/uL (0-0.7); Eosinophils % (A) 1 %; HCT 35.9 % (34.0-46.0); HGB 11.1 gm/dL (11.4-16.0); Hypochromasia Slight; Lymphocytes # (A) 0.7 k/uL (1.0-4.8); Lymphocytes % (A) 10 %; MCH 24.7 pg (25.0-35.0); MCHC 30.9 g/dL (31.0-37.0); MCV 79.8 fL (80.0-100.0); Mean Platelet Volume 7.9; Monocytes # (A) 0.2 k/uL (0-1.0); Monocytes % (A) 2 %; Neutrophils # (A) 5.6 k/uL (1.3-7.7); Neutrophils % (A) 85 %; Platelet Count 213 k/uL (150-450); RBC 4.49 m/uL (3.80-5.40); RDW 14.3 % (11.5-15.5); WBC 6.6 k/uL (3.8-10.6)
--- NOTE | 2019-10-15 07:34 | XR ---
EXAMINATION TYPE: XR chest 2V DATE OF EXAM: 10/15/2019 COMPARISON: 10/23/2018 HISTORY: 73 year-old female shortness of breath, difficulty breathing TECHNIQUE: AP and lateral views FINDINGS: Left anterior chest wall pacemaker generator with right atrial and right ventricular leads. Heart is borderline to mildly enlarged. Diffuse interstitial prominence. Some patchy posterior basilar and ret rocardiac opacities present. No pleural effusion. IMPRESSION: 1. Borderline to mild cardiomegaly. 2. Diffuse interstitial prominence could reflect mild pulmonary vascular congestion, bronchitis, or a sthma. 3. Patchy retrocardiac and posterior basilar opacity could represent atelectasis or early developing infiltrate.
[2019-10-15 07:35] LABS: Albumin 3.8 g/dL (3.5-5.0); Calcium 9.9 mg/dL (8.4-10.2); Potassium 4.1 mmol/L (3.5-5.1); Total Bilirubin 0.7 mg/dL (0.2-1.3); Total Protein 6.8 g/dL (6.3-8.2)
[2019-10-15 07:46] LABS: INR 0.9 (<1.2); Prothrombin Time 9.4 sec (9.0-12.0)
[2019-10-15 07:58] LABS: D-Dimer 1.38 mg/L FEU (<0.60); Partial Thromboplastin Time 21.3 sec (22.0-30.0)
--- NOTE | 2019-10-15 08:56 | CT ---
EXAMINATION TYPE: CT chest angio for PE DATE OF EXAM: 10/15/2019 COMPARISON: CT abdomen 10/23/2018 HISTORY: 73-year-old female Shortness of breath. TECHNIQUE: Contiguous axial scanning of the chest performed with IV Contrast, patient injected with 1 00 mL of Isovue 370. Coronal/sagittal MIP reconstructions performed. CT DLP: 395.2 mGycm Automated exposure control for dose reduction was used. FINDINGS: Left anterior chest wall pacemaker generator and internal and right ventricular leads. Heart borderline enlarged. No pericardial effusion. No flattening of the interventricular septum or r eflux of contrast into the hepatic veins. Aorta normal caliber with conventional branching anatomy. Satisfactory opacification of the pulmonary consistent. No evidence for pulmonary embolus. Prominent right tracheobronchial angle lymph node measures 1.0 cm, probably reactive. Mild septal lines throughout. Trace pleural effusions. Patchy bibasilar densities. Focal volume loss along the medial basilar left lower lobe. 4 mm peripheral right upper lobe pulmonary nodule, axial im age 34. Moderate-sized hiatal hernia. Atretic right kidney. Hydropic gallbladder measuring 4.6 cm wide withou t surrounding inflammation. Hilar splenule. 2.6 and 1.5 cm left adrenal nodularity. Left-sided coloni c diverticulosis. Bones: No osseous destructive process. IMPRESSION: 1. BORDERLINE CARDIOMEGALY WITH SEPTAL LINES AND TRACE EFFUSIONS. CORRELATE FOR MILD PULMONARY VASCUL AR CONGESTION. 2. PATCHY BIBASILAR OPACITIES COULD REPRESENT INFILTRATES AND/OR ATELECTASIS. THERE IS ATELECTASIS OF THE MEDIAL BASILAR SEGMENT OF THE LEFT LOWER LOBE. 3. NO PULMONARY EMBOLUS. 4. 4 MM RIGHT UPPER LOBE PULMONARY NODULE. 6 MONTH FOLLOW-UP CT TO REASSESS. 5. MODERATE-SIZED HIATAL HERNIA. GALLBLADDER HYDROPS COULD REFLECT FASTING STATE. THE RIGHT UPPER ALEXY DRANT PAIN OR CONCERN FOR EARLY ACUTE CHOLECYSTITIS, FOLLOW-UP ULTRASOUND OR HIDA SCAN. 6. LEFT ADRENAL NODULES MEASURING UP TO 2.6 CM STABLE FROM 10/23/2018 SUGGESTING BENIGN ADRENAL ADENOM .
[2019-10-15] MEDS ORDERED: AZITHROMYCIN 500 MG TAB PO STA (09:31)
[2019-10-15] MEDS ORDERED: ALBUTEROL NEBULIZED 2.5 MG/3 ML INHALATION PRN (09:34)
[2019-10-15] MEDS ORDERED: PNEUMONIA PROTOCOL UTILIZED 1 EACH MISC PO PRN (09:34)
[2019-10-15] MEDS: SODIUM CHLORIDE 0.9% 1,000 ML IV ONE ×2 (09:45→10:18)
[2019-10-15] MEDS: SODIUM CHLORIDE 0.9% 1,000 ML IV SCH ×2 (12:26→22:25)
[2019-10-15] MEDS ORDERED: ZOLPIDEM 5 MG TAB PO PRN (15:27)
[2019-10-15] MEDS ORDERED: MELATONIN 5 MG TABLET PO PRN (15:27)
[2019-10-15] MEDS ORDERED: MECLIZINE 25 MG TAB PO PRN (15:27)
[2019-10-15] MEDS ORDERED: traMADol 50 MG TAB PO PRN (15:27)
[2019-10-15] MEDS ORDERED: ONDANSETRON 4 MG TAB PO PRN (15:27)
[2019-10-15] MEDS ORDERED: ALPRAZolam 0.25 MG TAB PO PRN (15:28)
[2019-10-15 15:43] LABS: Appearance,Urine Clear (Clear); Bilirubin,Urine Negative (Negative); Blood,Urine Trace (Negative); Color,Urine Yellow; Glucose,Urine (UA) 2+ (Negative); Ketones,Urine 1+ (Negative); Leukocyte Esterase,Urine Trace (Negative); Mucus,Urine Rare /hpf; Nitrite,Urine Negative (Negative); PH, Urine 5.5 (5.0-8.0); Protein,Urine Trace (Negative); RBC,Urine 8 /hpf (0-5); Specific Gravity,Urine 1.036 (1.001-1.035); Urobilinogen,Urine <2.0 mg/dL (<2.0); WBC,Urine 38 /hpf (0-5)
[2019-10-15] MEDS: methylPREDNISolone SOD SUCCI 40 MG/ML 1 ML VIAL IV SCH ×2 (16:20→23:22)
--- NOTE | 2019-10-15 16:39 | CONS ---
CONSULTATION PULMONARY/CRITICAL CARE CONSULTATION: DATE OF SERVICE: 10/15/2019 REASON FOR CONSULTATION: Shortness of breath. This is a 73-year-old female who presents to the emergency room via EMS. She apparently had not been feeling well for a day or 2. She apparently came to the emergency room complaining of shortness of breath. It began to get much worse early in the morning on the day of admission. That was on October 15. The patient apparently does carry with her a diagnosis of asthma. EMS was called. They brought her in. In route, they gave her breathing treatment and a shot of Depo-Medrol or Solu-Medrol. She apparently has had some improvement in her breathing. She denies any fever or chills. She does have occasional cough. One thing that she has been really complaining about recently is a very sharp pleuritic right-sided chest pain. She states when she takes a deep breath or when she changes body position, the pain gets quite a bit worse. It really limits her in taking a deep breath. She denies other complaints. She denies any nausea, vomiting or diarrhea. She denies any fever or chills. She denies any genitourinary complaints. The patient apparently had a chest x-ray which showed possible pneumonia and possible pleurisy. The patient is feeling a bit better today than she did yesterday when she first came in, but she still is having issues. Her primary care physician is Dr. Rice. HOME MEDICATIONS: Include Prilosec, Ultram, Antivert, Zofran, K-Tab, Propafenone, Ambien, Lopressor, Ceftin, and Lasix. ALLERGIES: Include TETANUS AND DIPHTHERIA TOXOID and CODEINE. She also has an allergy to ETHER. MEDICAL HISTORY: Includes atrial fibrillation, bladder cancer with urostomy, GERD, hypertension, osteoarthritis, small bowel obstruction, vertigo, and possibly even asthma. She does not currently take anything for asthma. SURGICAL HISTORY: Includes cardiac ablation, bladder surgery, heart catheterization, hernia repair, hysterectomy, pacemaker insertion, tonsillectomy, left hip surgery x3, cardioversion, urostomy, and cataract surgery. SOCIAL HISTORY: Positive for remote tobacco use. She smoked just a few years when she was much younger. Not recently. Denies any alcohol or illicit drug use. FAMILY HISTORY: Positive for mother with asthma and acid reflux disease as well as diverticular disease and glaucoma. Father has a history of hyperlipidemia and stroke. REVIEW OF SYSTEMS: CONSTITUTIONAL: Negative. NEUROLOGIC: Negative. HEENT: Negative. CARDIOVASCULAR: Chest pain, it is right-sided and pleuritic in nature. It is very sharp and worse with deep breathing or changes in body position. PULMONARY: Shortness of breath, cough, chest tightness, chest congestion, occasional phlegm production. GI: Negative. : Negative. RHEUMATOLOGIC: Negative. IMMUNOLOGIC: Negative. ENDOCRINOLOGIC: Negative. DERMATOLOGIC: Negative. PHYSICAL EXAMINATION: Current vital signs are reviewed. Temperature is 97.6, heart rate 82, respiratory rate 16, blood pressure 153/73, saturations 97%, mean arterial pressure is 99. She is on 2 L nasal cannula. She appears not to be having any distress. She does wince though when she takes a deep breath or when she sits forward in her bed. HEENT: Examination is grossly unremarkable. Nasal O2 in place. NECK: Supple full range of motion. No adenopathy or thyromegaly. Neck veins are flat. CARDIOVASCULAR examination reveals regular rhythm rate. Heart rate between 75 and 85 beats per minute. S1, S2 normal. No S3, S4, or murmur. LUNGS: Reveal a few scattered rhonchi. No wheezes. She does not like taking deep breaths because of the pain. Breath sounds equal bilaterally, although maybe slightly diminished more so on the right side. ABDOMEN: Soft. Bowel sounds are heard. EXTREMITIES are intact. Minimal edema. SKIN: Without rash. NEUROLOGIC: Examination is nonfocal. A chest x-ray done on the 4th at 7:30 am shows borderline cardiomegaly. There is some diffuse interstitial changes which could represent peribronchial cuffing or interstitial lung disease. There is also patchy retrocardiac and posterior basal opacity which could represent either atelectasis or developing infiltrate. A CT angiogram was done also on the day of admission. It showed evidence of cardiomegaly, mild pulmonary vascular congestion, patchy bibasilar opacities and infiltrates primarily involving the medial basal segment of the left lower lobe. There was no evidence of pulmonary embolism. A 4 mm right upper lobe pulmonary nodule as well as some other findings including hiatal hernia, gallbladder hydrops, and possible early acute cholecystitis. LABORATORY DATA: Reviewed. White count 6.6, hemoglobin 11.1, hematocrit 35.9, platelet count is 213,000. PT/INR were 9.4 and 0.9. D-dimer 1.38. PTT 21.3. Sodium, potassium, chloride, CO2 all normal. Anion gap is normal. BUN and creatinine were 20 and 0.84. Plasma lactic acid was 2.2, followup was 3.2. Troponin was normal. N terminal proBNP was normal. Influenza studies are negative. Microbiologic studies are negative. Current medications are reviewed. She is currently on Tylenol, albuterol updrafts, Zithromax, Rocephin, Lasix, DuoNeb, and a basic IV. ASSESSMENT: 1. Possible pneumonia, involving both bases, with possible associated pleurisy. 2. Vague history of chronic bronchial asthma, currently not receiving any treatments for such. 3. History of atrial fibrillation. 4. History of bladder cancer with urostomy. 5. Gastroesophageal reflux disease. 6. Hypertension. 7. Degenerative joint disease. 8. Vertigo. 9. Status post pacemaker insertion. 10.Status post ablation. 11.History of heart catheterization. PLAN: Neck pain could be coming from her lungs in the form of pleurisy associated with a pneumonic infiltrate. Honestly, her chest x-ray and CT scan do not look particularly impressive. Another option based on the ultrasound of the abdomen could be acute cholecystitis. I am going to go ahead and order a HIDA scan. Additional recommendations and suggestions are forthcoming. Medications are reviewed. Please see my changes in orders. If acute cholecystitis and lithiasis are discovered, Surgery will be asked to see the patient. MMODL / IJN: [id number] /
[2019-10-15] MEDS: IPRATROPIUM-ALBUTEROL 3 ML NEB INHALATION SCH ×3 (17:04→22:02)
--- NOTE | 2019-10-15 17:51 | HP ---
HISTORY AND PHYSICAL CHIEF COMPLAINT: Shortness of breath. HISTORY OF PRESENT ILLNESS: This 73-year-old woman with a past medical history of multiple medical problems including atrial fibrillation, history of GERD, history of DJD, history of bladder cancer with urostomy, history of small bowel obstruction, history of ablation, cardiac catheterization, history of pacemaker, history of anxiety, depression, being followed by Dr. Rice in the outpatient setting was complaining of shortness of breath over the past several days. The patient also complaining of some sputum. Patient also has history of asthma. Because of increasing shortness of breath, EMS was called. EMS gave DuoNeb and Solu-Medrol, which made some improvement and the patient also had some right-sided chest pain, and substernal chest pain also, especially with deep breathing and the patient taken to [facility] and was admitted to the hospital for further evaluation and treatment. A chest x-ray was done. A CTA was also done which showed no evidence of pulmonary embolism but bilateral infiltrates and pneumonia was suspected. Patient did not take a flu shot this year. The influenza was negative. PAST MEDICAL HISTORY: History of asthma, atrial fibrillation, GERD, hypertension, history of cardiac ablation. MEDICATIONS: Home medications are: 1. Ultram 50 mg daily p.r.n. 2. Ambien 5 mg q.h.s. p.r.n. 3. Propafenone 150 mg p.o. b.i.d. 4. K-Tab ER 10 mEq p.o. daily. 5. Zofran 4 mg q.6h p.r.n. 6. Prilosec 20 mg q.48 hours. 7. Lopressor 25 mg p.o. b.i.d. 8. Melatonin 10 mg q.h.s. p.r.n. 9. Antivert 25 mg daily p.r.n. 10.Lasix 20 mg p.o. daily. 11.Aspirin 81 mg p.o. daily. ALLERGIES: ETHER, TETANUS AND DIPHTHERIA, TOXOIDS AND CODEINE. FAMILY HISTORY: History of asthma, GERD, diverticulosis, glaucoma. SOCIAL HISTORY: No history of smoking. No history of alcohol intake. REVIEW OF SYSTEMS: ENT: No diminished vision. No diminished hearing. CARDIOVASCULAR: No angina or palpitations. RESPIRATIONS: As mentioned earlier. GI no nausea or vomiting. no dysuria or hematuria. Nervous system: No numbness or weakness. ALLERGY/IMMUNOLOGY: No asthma or hayfever. MUSCULOSKELETAL as mentioned earlier. HEMATOLOGY/ONCOLOGY: No history of anemia. ENDOCRINE: No history of diabetes or hypothyroidism. CONSTITUTIONAL: As mentioned earlier. DERMATOLOGY negative. RHEUMATOLOGY: As mentioned earlier. PSYCHIATRIC: As mentioned earlier. PHYSICAL EXAM: General appearance: Alert and oriented times three. VITAL SIGNS: Pulse 82, blood pressure 150/70, respirations 16, temperature 97.6, pulse ox 97% on 2 L. HEENT: Conjunctivae normal. NECK: No JVD. CARDIOVASCULAR: S1, S2 muffled. RESPIRATIONS: Breath sounds diminished in the bases. Bilateral scattered rhonchi and crackles. Expiratory wheezing also heard. ABDOMEN: Soft, nontender. No mass palpable. LEGS: No edema. No swelling. NERVOUS SYSTEM: Higher functions as mentioned earlier. Moves all 4 limbs. No focal motor or sensory deficits. SKIN: No ulcer, rash or bleeding. JOINTS: No active deforming arthropathy. LABS: WBC 6.6, hemoglobin 11.1. Otherwise, D-dimer is 1.38. Lactic acid 2.2. ASSESSMENT: 1. Acute bronchial asthma, acute exacerbation with acute bilateral pneumonia possibly gram-negative with possible sepsis, present on admission. 2. Elevated lactic acid 2.2 and 3.2. 3. Elevated D-dimer with no evidence of pulmonary embolism. 4. Anemia, microcytic anemia of chronic disease possibly. 5. History of chronic atrial fibrillation. 6. History of gastroesophageal reflux disease. 7. Hypertension. 8. History of degenerative joint disease. 9. History of bladder cancer with urostomy. 10.History of small bowel obstruction. 11.History of cardiac ablation. 12.History of cardiac arrest. 13.History of hysterectomy. 14.History of left hip surgery. 15.History of permanent pacemaker. 16.History of anxiety, depression. 17.FULL CODE. RECOMMENDATIONS AND DISCUSSION: In this 73-year-old woman who presented with multiple complex medical issues, we will monitor the patient closely, continue the current medications, management and symptomatic treatment. Otherwise, we will initiate intensive bronchodilator treatment. Otherwise, I would also recommend short course of IV steroids. Resume the home medications. Guarded prognosis because of multiple complex medical conditions. Further recommendations to follow. Monitor the Accu-Cheks closely. A copy of this dictation being forwarded to Dr. Rice who is the primary physician. Broad-spectrum IV antibiotics initiated. MMODL / IJN: [id number] /
[2019-10-15] MEDS: METOPROLOL TARTRATE 25 MG TAB PO SCH (21:03)
[2019-10-15] MEDS: PROPAFENONE 150 MG TAB PO SCH (21:04)
[2019-10-15] MEDS: HEPARIN SODIUM,PORCINE 5,000 UNIT/ML 1 ML VIAL SQ SCH (21:04)
[2019-10-15] MEDS: BUDESONIDE 1 MG/2 ML NEBU INHALATION SCH (22:02)
[2019-10-16] MEDS: SODIUM CHLORIDE 0.9% 1,000 ML IV SCH ×2 (05:41→16:14)
--- NOTE | 2019-10-16 07:17 | XR ---
EXAMINATION TYPE: XR chest 2V DATE OF EXAM: 10/16/2019 COMPARISON: 10/15/2019 HISTORY: 73-year-old female TECHNIQUE: PA and lateral views FINDINGS: Left anterior chest wall pacemaker generator with right atrial and right ventricular leads. Heart rem ains borderline to mildly enlarged. Diffuse interstitial prominence. Mild hyperinflation. Continued r etrocardiac opacity. Trace left pleural effusion now noted. IMPRESSION: 1. Borderline to mild cardiomegaly. Possible background COPD. 2. Continued interstitial prominence, possible mild pulmonary vascular congestion especially given a new trace left pleural effusion. 3. Continued focal retrocardiac atelectasis or consolidation.
[2019-10-16] MEDS ORDERED: PANTOPRAZOLE 40 MG TABLET PO SCH (07:30)
[2019-10-16 07:31] LABS: Basophils % (A) 0 %; Eosinophils % (A) 0 %; HCT 31.6 % (34.0-46.0); HGB 9.7 gm/dL (11.4-16.0); Hypochromasia Marked; Lymphocytes # (A) 0.5 k/uL (1.0-4.8); Lymphocytes % (A) 3 %; MCH 25.1 pg (25.0-35.0); MCHC 30.6 g/dL (31.0-37.0); MCV 81.9 fL (80.0-100.0); Mean Platelet Volume 8.4; Monocytes # (A) 0.3 k/uL (0-1.0); Monocytes % (A) 2 %; Neutrophils # (A) 13.3 k/uL (1.3-7.7); Neutrophils % (A) 94 %; Platelet Count 236 k/uL (150-450); RBC 3.86 m/uL (3.80-5.40); RDW 14.1 % (11.5-15.5); WBC 14.1 k/uL (3.8-10.6)
[2019-10-16 07:49] LABS: African American GFR (CKD) >90 (>60 ml/min/1.73 sqM); Anion Gap 9 mmol/L; Blood Urea Nitrogen 21 mg/dL (7-17); Calcium 9.9 mg/dL (8.4-10.2); Carbon Dioxide 21 mmol/L (22-30); Chloride 108 mmol/L (98-107); Glucose 139 mg/dL (74-99); Non-African American GFR(CKD) 81 (>60 ml/min/1.73 sqM); Potassium 4.9 mmol/L (3.5-5.1); Sodium 138 mmol/L (137-145)
[2019-10-16] MEDS: IPRATROPIUM-ALBUTEROL 3 ML NEB INHALATION SCH ×4 (09:28→20:46)
[2019-10-16] MEDS: BUDESONIDE 1 MG/2 ML NEBU INHALATION SCH ×2 (09:28→20:46)
[2019-10-16] MEDS: ASPIRIN 81 MG PO SCH (10:24)
[2019-10-16] MEDS: FUROSEMIDE 20 MG TAB PO SCH (10:25)
[2019-10-16] MEDS: METOPROLOL TARTRATE 25 MG TAB PO SCH ×2 (10:25→20:36)
[2019-10-16] MEDS: methylPREDNISolone SOD SUCCI 40 MG/ML 1 ML VIAL IV SCH ×3 (10:25→23:23)
[2019-10-16] MEDS: HEPARIN SODIUM,PORCINE 5,000 UNIT/ML 1 ML VIAL SQ SCH ×2 (10:25→20:37)
[2019-10-16] MEDS: AZITHROMYCIN 500 MG TAB PO SCH (10:25)
[2019-10-16] MEDS: PANTOPRAZOLE 40 MG/10 ML VIAL IVP SCH (10:26)
[2019-10-16] MEDS: PROPAFENONE 150 MG TAB PO SCH ×2 (10:26→20:36)
[2019-10-16] MEDS: POTASSIUM CHLORIDE ER 10 MEQ TAB.ER.PRT PO SCH (10:26)
--- NOTE | 2019-10-16 12:22 | NM ---
EXAMINATION TYPE: NM hepatobiliary w CCK DATE OF EXAM: 10/16/2019 COMPARISON: Correlation CT 07/09/2019 HISTORY: 73-year-old female with right upper quadrant pain, rule out acute gallbladder disease TECHNIQUE: After the intravenous administration of 3.66 mCi Tc 99m Mebrofenin hepatobiliary scintigra phy is performed. Immediate images post injection. FINDINGS: There is satisfactory initial accumulation of tracer by the liver. The gallbladder is nonvisualized up to 2 hours. On the delayed 2.5 hour images, there is a nodular area of activity at the gallbladder fossa, possibly in the cystic duct. Early gallbladder filling is difficult to exclude. The small bow el activity is noted within 32 minutes. IMPRESSION: There is delayed gallbladder filling. Findings would suggest at least chronic cholecystitis or biliar y dyskinesia. Equivocal gallbladder filling at 2.5 hours versus nubbin sign (focal activity collectin g in the cystic duct which can be seen in the setting of acute cholecystitis). Further clinical corre lation is needed for possible acute cholecystitis.
[2019-10-17] MEDS: SODIUM CHLORIDE 0.9% 1,000 ML IV SCH ×3 (04:04→21:30)
--- NOTE | 2019-10-17 05:38 | PN ---
PROGRESS NOTE DATE OF SERVICE: 10/16/2019 This 73-year-old woman was admitted with shortness of breath, had acute bronchial asthma acute exacerbation as well as possibly bilateral pneumonia possibly gram- negative. The patient is closely monitored at this time. The patient also had a HIDA scan today which showed delayed gallbladder filling suggestive of chronic cholecystitis or biliary hypokinesia. Dr. Braden is following the patient closely at this time. Dr. Reese has been consulted for possible cholecystitis. Patient on broad spectrum IV antibiotics. Plasma lactic acid elevated at 2.7. PAST MEDICAL HISTORY: Reviewed. REVIEW OF SYSTEMS: CARDIOVASCULAR SYSTEM: No angina. RESPIRATORY SYSTEM: As mentioned earlier. GI: As mentioned earlier. : No dysuria. NERVOUS SYSTEM: As mentioned earlier. MEDICATIONS: Medications are reviewed and include: 1. Tylenol p.r.n. 2. Ventolin 2.5 q.4 p.r.n. 3. DuoNeb q.i.d. and p.r.n. 4. Xanax 0.25 t.i.d. 5. Aspirin 81 mg daily. 6. Zithromax 500 mg daily. 7. Pulmicort 1 mg b.i.d. 8. Rocephin 1 gram IV daily. 9. Heparin. 10.Melatonin. 11.Solu-Medrol 40 IV q.8. 12.Zofran. 13.Protonix. 14.Rythmol. 15.Ambien. Doses are reviewed. PHYSICAL EXAMINATION: The patient is alert and oriented x3. Pulse 77, blood pressure 121/63, respiration 18, temperature 98.7, pulse ox 94% on room air. HEENT: Conjunctivae normal. NECK: No jugular venous distention. CARDIOVASCULAR: S1, S2 muffled. RESPIRATORY: Breath sounds diminished at the bases. Bilateral scattered rhonchi and crackles. Expiratory wheezing also present. ABDOMEN: Soft, nontender. No mass palpable. LEGS: No edema, no swelling. NERVOUS SYSTEM: Higher function as mentioned. Moves all 4 limbs. No focal deficits. LYMPHATICS: No lymphadenopathy of the neck, axillae or groin. SKIN: No ulcer, rash or bleeding. JOINTS: No active deforming arthropathy. LABS: WBC 14.1, hemoglobin 9.7 and lactic acid is 4.1, 6.2 and 2.7. ASSESSMENT: 1. Acute bronchial asthma acute exacerbation, acute bilateral pneumonia possibly gram- negative possibly sepsis, present on admission. 2. Elevated lactic acid 6.2 possibly secondary to sepsis. 3. Possible chronic cholecystitis, rule out acute component. 4. Elevated D-dimer with no evidence of pulmonary embolism. 5. Anemia microcytic anemia of chronic disease possibly. 6. History of chronic atrial fibrillation. 7. History of gastroesophageal reflux disease. 8. Hypertension. 9. History of degenerative joint disease. 10.History of bladder cancer with urostomy. 11.History of small bowel obstruction. 12.History of cardiac ablation. 13.History of cardiac arrest. 14.History of hysterectomy. 15.History of left hip surgery. 16.History of permanent pacemaker. 17.History of anxiety, depression. 18.FULL CODE. RECOMMENDATIONS AND DISCUSSION: Recommend to continue current medications. Continue with monitoring and symptomatic treatment. Continue with broad-spectrum antibiotics. Continue with bronchodilators. Closely follow with Pulmonary. Surgical consultation has been sought. We will continue to monitor. Prognosis guarded and cultures are negative so far. We will continue to monitor. I would also recommend infectious disease evaluation also for possible sepsis. Once again, the prognosis guarded. Further recommendations to follow. MMODL / IJN: [id number] /
[2019-10-17] MEDS: ACETAMINOPHEN TAB 500 MG TAB PO PRN ×2 (07:23→18:16)
[2019-10-17] MEDS: methylPREDNISolone SOD SUCCI 40 MG/ML 1 ML VIAL IV SCH ×2 (07:23→21:30)
[2019-10-17] MEDS: AZITHROMYCIN 500 MG TAB PO SCH (07:24)
[2019-10-17] MEDS: FUROSEMIDE 20 MG TAB PO SCH (07:24)
[2019-10-17] MEDS: ASPIRIN 81 MG PO SCH (07:24)
[2019-10-17] MEDS: POTASSIUM CHLORIDE ER 10 MEQ TAB.ER.PRT PO SCH (07:24)
[2019-10-17] MEDS: PANTOPRAZOLE 40 MG/10 ML VIAL IVP SCH (07:24)
[2019-10-17] MEDS: HEPARIN SODIUM,PORCINE 5,000 UNIT/ML 1 ML VIAL SQ SCH ×2 (07:24→21:30)
[2019-10-17] MEDS: PROPAFENONE 150 MG TAB PO SCH ×2 (07:24→21:30)
[2019-10-17] MEDS: METOPROLOL TARTRATE 25 MG TAB PO SCH ×2 (07:25→21:30)
[2019-10-17 07:37] LABS: Basophils % (A) 0 %; Eosinophils % (A) 0 %; HCT 31.2 % (34.0-46.0); HGB 9.7 gm/dL (11.4-16.0); Hypochromasia Slight; Lymphocytes # (A) 0.6 k/uL (1.0-4.8); Lymphocytes % (A) 5 %; MCV 80.6 fL (80.0-100.0); Mean Platelet Volume 8.3; Monocytes # (A) 0.3 k/uL (0-1.0); Monocytes % (A) 2 %; Neutrophils # (A) 10.9 k/uL (1.3-7.7); Neutrophils % (A) 93 %; Platelet Count 222 k/uL (150-450); RBC 3.87 m/uL (3.80-5.40); RDW 14.8 % (11.5-15.5); WBC 11.7 k/uL (3.8-10.6)
[2019-10-17 07:53] LABS: Calcium 10.1 mg/dL (8.4-10.2); Potassium 5.2 mmol/L (3.5-5.1)
[2019-10-17] MEDS: IPRATROPIUM-ALBUTEROL 3 ML NEB INHALATION SCH ×4 (08:06→18:59)
[2019-10-17] MEDS: BUDESONIDE 1 MG/2 ML NEBU INHALATION SCH ×2 (08:06→19:00)
--- NOTE | 2019-10-17 14:02 | P.GSCN ---
History of Present Illness Consult date: 10/17/19 Reason for Consult: Possible cholecystitis Requesting physician: Segundo Braden History of present illness: CHIEF COMPLAINT: Abdominal pain HISTORY OF PRESENT ILLNESS: 73 year old female who is currently admitted to the hospital secondary to pneumonia. Patient reports she began having abdominal pain the day she came to the hospital. She reports it woke her up at 4am while she was sleeping. She reports the pain is mostly in the epigastric region and right upper quadrant. Denies nausea or vomiting. She states she has been told in the past she had problems with her gallbladder but has never been evaluated by a surgeon. She reports her daughter has a history of cholecystectomy. PAST MEDICAL HISTORY: See list. PAST SURGICAL HISTORY: See list. SOCIAL HISTORY: No illicit drug use. REVIEW OF SYSTEMS: CONSTITUTIONAL: Denies fever or chills. HEENT: Denies blurred vision, vision changes, or eye pain. Denies hemoptysis CARDIOVASCULAR: Denies chest pain or pressure. RESPIRATORY: No shortness of breath. GASTROINTESTINAL: Refer to HPI for pertinent findings HEMATOLOGIC: Denies bleeding disorders. GENITOURINARY: Denies any blood in urine. SKIN: Denies pruitis. Denies rash. PHYSICAL EXAM: Reviewed. GENERAL: Well-developed in no acute distress. HEENT: No sclera icterus. Extraocular movements grossly intact. Moist buccal mucosa. Head is atraumatic, normocephalic. ABDOMEN: Soft. Nondistended. Nontender. Urostomy to right lower quadrant. NEUROLOGIC: Alert and oriented. Cranial nerves II through XII grossly intact. LABORATORY DATA: WBC 11.7. Hemoglobin 9.7. Platelet count 222. Potassium 5.2. BUN 28. Creatinine 0.84. Lactic acid 2.7. IMAGING: HIDA scan: Delayed gallbladder filling. Findings would suggest at least chronic cholecystitis. ASSESSMENT: 1. Abdominal pain 2. Chronic cholecystitis PLAN: Low fat diet Patient will tentatively be scheduled for laparoscopic cholecystectomy on Thursday Nurse practitioner note has been reviewed by physician. Signing provider agrees with the documented findings, assessment, and plan of care. Past Medical History Past Medical History: Atrial Fibrillation, Cancer, GERD/Reflux, Hypertension, Osteoarthritis (OA) Additional Past Medical History / Comment(s): bladder cancer with urostomy, Small Bowel Obstruction, vertigo History of Any Multi-Drug Resistant Organisms: None Reported Past Surgical History: Ablation, Bladder Surgery, Heart Catheterization, Hernia Repair, Hysterectomy, Orthopedic Surgery, Pacemaker, Tonsillectomy Additional Past Surgical History / Comment(s): LEFT HIP SURGERY x 5, [facility]S AND MARNIE 2015, ablasion CARDIOVERSION, urostomy 10/2010, cataracts 2018 Past Anesthesia/Blood Transfusion Reactions: Previous Problems w/ Anesthesia Additional Past Anesthesia/Blood Transfusion Reaction / Comm: asthma attack Type of Cardiac Device: Permanent Pacemaker Device Placement Date:: 2006 Past Psychological History: Anxiety, Depression Smoking Status: Never smoker Past Alcohol Use History: None Reported Past Drug Use History: None Reported - Past Family History Mother Family Medical History: Asthma, GERD/Reflux Additional Family Medical History / Comment(s): diverticulitus, glaucoma Father Family Medical History: Hyperlipidemia Additional Family Medical History / Comment(s): stroke, brain tumour Medications and Allergies Home Medications Medication Instructions Recorded Confirmed Type Omeprazole [PriLOSEC] 20 mg PO Q48H 02/05/15 10/15/19 History traMADol HCl [Ultram] 50 mg PO DAILY PRN 02/05/15 10/15/19 History Meclizine [Antivert] 25 mg PO DAILY PRN 09/01/16 10/15/19 History Ondansetron [Zofran] 4 mg PO Q6H PRN 09/01/16 10/15/19 History Potassium Chloride [K-Tab ER] 10 meq PO DAILY 09/01/16 10/15/19 History Propafenone HCl 150 mg PO BID 09/01/16 10/15/19 History Zolpidem [Ambien] 5 mg PO HS PRN 09/01/16 10/15/19 History Metoprolol Tartrate [Lopressor] 25 mg PO BID #60 tab 12/21/16 10/15/19 Rx Aspirin 81 mg PO DAILY 10/15/19 10/15/19 History Furosemide [Lasix] 20 mg PO DAILY 10/15/19 10/15/19 History Melatonin 10 mg PO HS PRN 10/15/19 10/15/19 History Allergies Allergy/AdvReac Type Severity Reaction Status Date / Time ether Allergy Anaphylaxis Verified 10/15/19 06:51 tetanus and diphtheria Allergy Unknown Verified 10/15/19 06:51 toxoids [tetanus & diphtheria toxoids] codeine AdvReac Nausea Verified 10/15/19 06:51 Surgical - Exam Vital Signs Temp Pulse Resp BP Pulse Ox 101.2 F H 76 20 153/82 100 10/15/19 06:42 10/15/19 06:42 10/15/19 06:42 10/15/19 06:42 10/15/19 06:42 Results - Labs 10/17/19 06:45 10/17/19 06:45 Abnormal Lab Results - Last 24 Hours (Table) 10/17/19 10/17/19 Range/Units 06:45 06:45 WBC 11.7 H (3.8-10.6) k/uL Hgb 9.7 L (11.4-16.0) gm/dL Hct 31.2 L (34.0-46.0) % Neutrophils # 10.9 H (1.3-7.7) k/uL Lymphocytes # 0.6 L (1.0-4.8) k/uL Potassium 5.2 H (3.5-5.1) mmol/L Chloride 108 H (98-107) mmol/L BUN 28 H (7-17) mg/dL Glucose 134 H (74-99) mg/dL Microbiology - Last 24 Hours (Table) 10/15/19 07:12 Blood Culture - Preliminary Blood No Growth after 48 hours 10/15/19 15:05 Urine Culture - Final Urine,Ureter 10/15/19 18:17 Blood Culture - Preliminary Blood No Growth after 24 hours Diabetes panel 10/17/19 Range/Units 06:45 Sodium 138 (137-145) mmol/L Potassium 5.2 H (3.5-5.1) mmol/L Chloride 108 H (98-107) mmol/L Carbon Dioxide 23 (22-30) mmol/L BUN 28 H (7-17) mg/dL Creatinine 0.84 (0.52-1.04) mg/dL Glucose 134 H (74-99) mg/dL Calcium 10.1 (8.4-10.2) mg/dL Calcium panel 10/17/19 Range/Units 06:45 Calcium 10.1 (8.4-10.2) mg/dL Pituitary panel 10/17/19 Range/Units 06:45 Sodium 138 (137-145) mmol/L Potassium 5.2 H (3.5-5.1) mmol/L Chloride 108 H (98-107) mmol/L Carbon Dioxide 23 (22-30) mmol/L BUN 28 H (7-17) mg/dL Creatinine 0.84 (0.52-1.04) mg/dL Glucose 134 H (74-99) mg/dL Calcium 10.1 (8.4-10.2) mg/dL Adrenal panel 10/17/19 Range/Units 06:45 Sodium 138 (137-145) mmol/L Potassium 5.2 H (3.5-5.1) mmol/L Chloride 108 H (98-107) mmol/L Carbon Dioxide 23 (22-30) mmol/L BUN 28 H (7-17) mg/dL Creatinine 0.84 (0.52-1.04) mg/dL Glucose 134 H (74-99) mg/dL Calcium 10.1 (8.4-10.2) mg/dL
--- NOTE | 2019-10-17 14:32 | P.PN ---
Subjective Progress Note Date: 10/17/19 3-year-old female patient was seen in consultation yesterday. She came into the emergency department because of worsening shortness of breath worsened the day of admission. She was seen by consultation by my partner. She apparently has a vague history of bronchial asthma. She was brought in via EMS and she was given IV Solu-Medrol in bouts. She was complaining of a very sharp right pleuritic chest pain. Chest x-ray did show borderline to mild cardiomegaly. There was diffuse interstitial prominence with 4 vessel congestion. Patchy retrocardiac pulmonary infiltrate could not be completely excluded. CAT scan of the chest was also done that showed left anterior chest wall pacemaker generator with right ventricular leads. There was moderate-sized hiatal hernia. Hydropic gallbladder measuring 4.6 cm without surrounding inflammation. The mediastinal lymphadenopathy. Mild septal Throughout and trace pleural effusion with patchy bibasilar pulmonary infiltrates seen and some focal volume loss in the left lower lobe. The HIDA scan showed delayed gallbladder filling findings at least consistent with chronic cholecystitis or biliary dyskinesia. Her white cell count is at 11. Electrodes are within normal limits. Lactic acid level was at 6.2 dropped down to 2.7. The cultures were negative and the patient is currently on a combination of Rocephin and Zithromax. The pain today is subsided and the patient is feeling better. No fever. No chills. She is on room air oxygen. No nausea or vomiting or emesis. She also has previous history of bladder cancer and she has undergone a previous Objective - Vital Signs Vital signs: Vital Signs Temp 98.1 F 10/17/19 07:00 Pulse 78 10/17/19 11:45 Resp 16 10/17/19 07:00 BP 156/78 10/17/19 07:00 Pulse Ox 94 L 10/17/19 07:00 Intake & Output 10/16/19 10/17/19 10/17/19 18:59 06:59 18:59 Intake Total 200 300 Output Total 1300 800 Balance -1100 -500 Intake: Oral 200 300 Output: Urine 1300 800 - Exam The patient appeared well nourished and normally developed. Vital signs as do cumented. Head exam is unremarkable. No scleral icterus or corneal arcus noted. Neck is without jugular venous distension, thyromegaly, or carotid bruits. Carotid upstrokes are brisk bilaterally. Lungs are clear to auscultation and percussion. Cardiac exam reveals the PMI to be normally sized and situated. Rhythm is regular. First and second heart sounds normal. No murmurs, rubs or gallops. Abdominal exam reveals normal bowel sounds, no masses, no organomegaly and no aortic enlargement. Extremities are nonedematous and both femoral and pedal pulses are normal. Skin the patient has a urostomy site over the right upper quadrant area and the area urostomy is functioning producing adequate amou nt of urine. - Labs CBC & Chem 7: 10/17/19 06:45 10/17/19 06:45 Labs: Abnormal Lab Results - Last 24 Hours (Table) 10/17/19 10/17/19 Range/Units 06:45 06:45 WBC 11.7 H (3.8-10.6) k/uL Hgb 9.7 L (11.4-16.0) gm/dL Hct 31.2 L (34.0-46.0) % Neutrophils # 10.9 H (1.3-7.7) k/uL Lymphocytes # 0.6 L (1.0-4.8) k/uL Potassium 5.2 H (3.5-5.1) mmol/L Chloride 108 H (98-107) mmol/L BUN 28 H (7-17) mg/dL Glucose 134 H (74-99) mg/dL Microbiology - Last 24 Hours (Table) 10/15/19 07:12 Blood Culture - Preliminary Blood No Growth after 48 hours 10/15/19 15:05 Urine Culture - Final Urine,Ureter 10/15/19 18:17 Blood Culture - Preliminary Blood No Growth after 24 hours Assessment and Plan Plan: 1 pleuritic chest pain, exact nature is not clear. Could be pneumonia although this is not absolutely definite. Other possibilities include chronic gallbladder disease. The patient is scheduled to undergo a cholecystectomy laparoscopic approach by Thursday. 2 bronchial asthma 3 chronic atrial fibrillation, currently is on no anticoagulants, post ablation 4 history of bladder cancer with a previous urostomy 5 acid reflux 6 hypertension 7 history of vertigo 8 history of pacemaker insertion plan 1 Monitor fever pattern 2 Use incentive spirometer 3 repeat a chest x-ray in the morning to make sure there is no pneumonia 4 proceed with a laparoscopic cholecystectomy 5 I'll continue combination of Rocephin and Zithromax 6 we'll continue to follow
--- NOTE | 2019-10-17 18:51 | PN ---
PROGRESS NOTE DATE OF SERVICE: 10/17/2019 This 74-year-old woman was admitted with acute bronchial asthma, acute exacerbation also had possibly gram-negative sepsis also. Patient had elevated lactic acid. A hepatobiliary scan showed delayed gallbladder filling suggestive of cholecystitis or biliary dyskinesia. Surgery is following the patient closely. Laparoscopic cholecystectomy is also being planned at this time. PAST MEDICAL HISTORY: Reviewed. REVIEW OF SYSTEMS: CARDIOVASCULAR SYSTEM: No angina or palpitations. RESPIRATION as mentioned earlier. GI: As mentioned earlier. no dysuria. NERVOUS SYSTEMS: No numbness or weakness. MEDICATIONS: Current medications reviewed and include: 1. Tylenol p.r.n. 2. Ventolin 2.5 q.i.d. p.r.n. 3. DuoNeb q.i.d. and p.r.n. 4. Xanax 0.5 t.i.d. 5. Aspirin 81 mg p.r.n. 6. Zithromax 500 mg. 7. Pulmicort 1 mg b.i.d. 8. Rocephin 1 g daily. 9. Lasix. 10.Heparin. 11.Antivert. 12.Melatonin. 13.Solu Medrol 40 IV q.8h. 14.Zofran. 15.Protonix. 16.Rythmol 150 mg p.o. b.i.d. 17.Ultram 50 mg p.o. daily. 18.Ambien 5 mg q.h.s. p.r.n. PHYSICAL EXAMINATION: The patient is alert and oriented times three. Pulse 78, blood pressure 150/70, respirations 16, temperature 98.1, pulse ox 94% on room air. HEENT: Conjunctivae normal. NECK: No JVD. CARDIOVASCULAR: S1, S2 muffled. RESPIRATIONS: Breath sounds diminished in the bases. A few scattered rhonchi and crackles. ABDOMEN: Soft. Obese. Mild diffuse discomfort on palpation right upper quadrant. CENTRAL NERVOUS SYSTEM: No focal deficits. LABORATORY DATA: WBC 11.7, hemoglobin 9.7. Lactic acid noted. ASSESSMENT: 1. Acute bronchial asthma acute exacerbation with acute bilateral pneumonia possibly gram-negative with possible sepsis, present on admission. 2. Possible cholecystitis, chronic. 3. Elevated lactic acid 6.2, possibly secondary to sepsis. 4. Elevated D-dimer with no evidence of pulmonary embolism. 5. Anemia, microcytic anemia of chronic disease. 6. History of chronic atrial fibrillation. 7. History of gastroesophageal reflux disease. 8. Hypertension. 9. History of degenerative joint disease. 10.History of bladder cancer with urostomy. 11.History of small bowel obstruction. 12.History of cardiac ablation. 13.History of cardiac arrest. 14.History of hysterectomy. 15.History of left hip surgery. 16.History of permanent pacemaker. 17.History of anxiety, depression. 18.FULL CODE. RECOMMENDATIONS AND DISCUSSION: Recommend to continue current medications, monitoring, symptomatic treatment. Otherwise, at this time, I recommend continue with bronchodilators. Taper the steroids further. Otherwise, closely follow with surgery for possible cholecystectomy. Repeat labs in the morning. Guarded prognosis. Further recommendations to follow. MMODL / IJN: [id number] /
--- NOTE | 2019-10-17 23:47 | CONS ---
CONSULTATION DATE OF SERVICE: 10/17/2019 REASON FOR CONSULTATION: Sepsis. HISTORY OF PRESENT ILLNESS: The patient is a 73 -year-old female, who presented to the ER at [facility] on 10/15/2019 for chief complaint of a sharp pain to the right upper quadrant area. The patient states she woke up in the morning with this pain, in view of sudden onset, pain was sharp almost 10/10 in severity. The patient did have associated nausea, but did not have any vomiting. She also complaining of shortness of breath, but no significant cough or sputum production. Denies having any diarrhea. With these symptoms, the patient was evaluated by the ER physician. On arrival to the ER, the patient did have a chest x-ray that shows borderline cardiomegaly, diffuse interstitial prominence could reflect pulmonary vascular congestion and patchy retrocardiac opacity. The patient also have a CT angiogram which shows borderline cardiomegaly, patchy bibasilar opacities, hiatal hernia and also showing gallbladder hydrops, could reflect fasting state. The patient did have a HIDA scan that has been suspicious for cholecystitis. The patient currently has been treated with Rocephin and Zithromax. Infectious Disease was consulted for further recommendations regarding possible sepsis in this patient who did have a fever of 101.2 degrees Fahrenheit on presentation. The fever has subsequently resolved. The patient did have initial normal white count, subsequent white count of 14.1, which is down to 11.7 today. Lactic acid elevated to 6.2 on admission that has come down to 0.7. UA was mildly positive. Influenza serology was negative. REVIEW OF SYSTEMS: Positive points have been mentioned in the HPI. Rest of the systems are negative. PAST MEDICAL HISTORY: Atrial fibrillation, gastroesophageal reflux disease, history of bladder cancer, hypertension, osteoarthritis, small bowel obstruction. PAST SURGICAL HISTORY: Ablation, bladder surgery, heart catheterization, hernia repair, tonsillectomy, pacemaker placement, hysterectomy, left hip surgery. SOCIAL HISTORY: Denies smoking, drinking or drug use. FAMILY HISTORY: Mother with history of gastroesophageal reflux disease, diverticulitis. Father history of brain tumor and stroke. ALLERGIES: TO TETANUS TOXOID AND CODEINE. MEDICATIONS: Includes the patient is currently on Tylenol, Ventolin, DuoNeb, Xanax, aspirin, Zithromax, Pulmicort, Rocephin 1 g daily, Lasix, heparin, Antivert, melatonin, Solu- Medrol, Lopressor, Zofran, Protonix, Rythmol, Ultram, and Ambien. PHYSICAL EXAMINATION: Blood pressure 106/58 with a pulse of 79, temperature 98.4. She is 92% on room air. General description is an elderly female lying in bed in no distress. No tachypnea or accessory muscles of respiration use. HEENT: Examination shows no pallor or scleral icterus. Oral mucosa membranes are dry. No pharyngeal erythema or thrush. Neck: Trachea central. No thyromegaly. Lungs unlabored breathing. Decreased breath sounds at the bases. No wheeze. Heart S1, S2. Regular rate and rhythm. ABDOMEN: Soft. Minimal tenderness right upper quadrant area with no guarding, rigidity. No organomegaly. EXTREMITIES: No edema of the feet. Skin examination: No rash or mass palpable. NEUROLOGICAL: Patient is awake, alert, oriented x3. Mood and affect normal. LABS: Hemoglobin is 9.1, white count of 11.7, BUN of 28, creatinine 0.34. Potassium 5.2, lactic acid is 2.7, initial was 6.2. Influenza serology was negative. DIAGNOSTIC IMPRESSION AND PLAN: Patient admitted to the hospital with sepsis in this patient who did have acute pain to the right upper quadrant area, more likely suggestive of acute cholecystitis. The patient did not have a significant cough or sputum production to be suspicious for pneumonia and cholecystitis possibly related to a gram-negative enteric bacteria had the patient seemed to have some clinical improvement with IV Rocephin which the patient has been started on. PLAN: 1. Rocephin 1 gram IV piggyback daily and Zithromax can be safely discontinued. 2. Await laparoscopic cholecystectomy scheduled for this Thursday. 3. Gentle IV fluid. 4. We will follow the clinical condition and culture to further adjust medication if needed. Thank you for this consultation. We will follow this patient along with you. MMODL / IJN: [id number] /
[2019-10-18] MEDS: ACETAMINOPHEN TAB 500 MG TAB PO PRN (07:27)
[2019-10-18] MEDS: PANTOPRAZOLE 40 MG/10 ML VIAL IVP SCH (07:27)
[2019-10-18] MEDS: METOPROLOL TARTRATE 25 MG TAB PO SCH ×2 (07:27→20:52)
[2019-10-18] MEDS: ASPIRIN 81 MG PO SCH (07:27)
[2019-10-18] MEDS: methylPREDNISolone SOD SUCCI 40 MG/ML 1 ML VIAL IV SCH (07:27)
[2019-10-18] MEDS: POTASSIUM CHLORIDE ER 10 MEQ TAB.ER.PRT PO SCH (07:27)
[2019-10-18] MEDS: HEPARIN SODIUM,PORCINE 5,000 UNIT/ML 1 ML VIAL SQ SCH ×2 (07:27→20:52)
[2019-10-18] MEDS: PROPAFENONE 150 MG TAB PO SCH ×2 (07:28→20:52)
[2019-10-18] MEDS: SODIUM CHLORIDE 0.9% 1,000 ML IV SCH ×2 (07:28→17:02)
[2019-10-18] MEDS: AZITHROMYCIN 500 MG TAB PO SCH (07:28)
[2019-10-18] MEDS: FUROSEMIDE 20 MG TAB PO SCH (07:28)
[2019-10-18 07:54] LABS: Basophils % (A) 0 %; Eosinophils % (A) 0 %; HCT 31.6 % (34.0-46.0); HGB 9.7 gm/dL (11.4-16.0); Hypochromasia Marked; Lymphocytes # (A) 0.5 k/uL (1.0-4.8); Lymphocytes % (A) 5 %; MCH 25.7 pg (25.0-35.0); MCHC 30.8 g/dL (31.0-37.0); MCV 83.4 fL (80.0-100.0); Mean Platelet Volume 8.6; Monocytes # (A) 0.3 k/uL (0-1.0); Monocytes % (A) 3 %; Neutrophils # (A) 9.2 k/uL (1.3-7.7); Neutrophils % (A) 91 %; Platelet Count 235 k/uL (150-450); RBC 3.78 m/uL (3.80-5.40); RDW 14.4 % (11.5-15.5); WBC 10.2 k/uL (3.8-10.6)
[2019-10-18] MEDS: IPRATROPIUM-ALBUTEROL 3 ML NEB INHALATION SCH ×4 (08:08→20:15)
[2019-10-18] MEDS: BUDESONIDE 1 MG/2 ML NEBU INHALATION SCH ×2 (08:08→20:15)
[2019-10-18 08:18] LABS: Calcium 9.7 mg/dL (8.4-10.2); Potassium 4.9 mmol/L (3.5-5.1)
--- NOTE | 2019-10-18 08:52 | XR ---
EXAMINATION TYPE: XR chest 2V DATE OF EXAM: 10/18/2019 COMPARISON: 10/16/2019 TECHNIQUE: PA and lateral views submitted. HISTORY: Pain FINDINGS: Left anterior chest wall pacemaker generator with right atrial and right ventricular leads. Heart rem ains borderline to mildly enlarged. Diffuse interstitial prominence. Mild hyperinflation. Continued r etrocardiac opacity. Trace left pleural effusion now noted. Arthropathy of the shoulders. Diffuse ost eopenia. Biapical pleural thickening. Degenerative change of the spine. IMPRESSION: 1. COPD with coarsened interstitium. Bibasilar consolidation small effusion are noted. Could represen t underlying basilar pneumonia. The differential diagnosis also includes interstitial pneumonitis or mild venous congestion.
--- NOTE | 2019-10-18 10:35 | P.PN ---
Subjective Progress Note Date: 10/18/19 73-year-old female patient was seen in consultation yesterday. She came into the emergency department because of worsening shortness of breath worsened the day of admission. She was seen by consultation by my partner. She apparently has a vague history of bronchial asthma. She was brought in via EMS and she was given IV Solu-Medrol in bouts. She was complaining of a very sharp right pleuritic chest pain. Chest x-ray did show borderline to mild cardiomegaly. There was diffuse interstitial prominence with 4 vessel congestion. Patchy retrocardiac pulmonary infiltrate could not be completely excluded. CAT scan of the chest was also done that showed left anterior chest wall pacemaker generator with right ventricular leads. There was moderate-sized hiatal hernia. Hydropic gallbladder measuring 4.6 cm without surrounding inflammation. The mediastinal lymphadenopathy. Mild septal Throughout and trace pleural effusion with patchy bibasilar pulmonary infiltrates seen and some focal volume loss in the left lower lobe. The HIDA scan showed delayed gallbladder filling findings at least consistent with chronic cholecystitis or biliary dyskinesia. Her white cell count is at 11. Electrodes are within normal limits. Lactic acid level was at 6.2 dropped down to 2.7. The cultures were negative and the patient is currently on a combination of Rocephin and Zithromax. The pain today is subsided and the patient is feeling better. No fever. No chills. She is on room air oxygen. No nausea or vomiting or emesis. She also has previous history of bladder cancer and she has undergone a previous On 10/18/2019, the patient remains on room air oxygen and she is pulling approximately 2000 on the incentive spirometer. She still has some discomfort in her right chest area mainly anterior and moving laterally and this is mainly with deep breathing. The plan is to proceed with a cholecystectomy tomorrow. No significant leukocytosis and the white cell count is at 10.2. 3. Chest x- ray was done this morning and it showed COPD along with coarse interstitium. There is some limited effusion the lung bases on lateral views. There is some mild cardio megaly or mild pulmonary vascular congestion. Room air pulse ox is 94%. Blood cultures are negative. The patient remains on a combination of Rocephin and Zithromax. Rest of the medications remain unchanged. He remains on IV Solu-Medrol 40 mg every 12 hours. Objective - Vital Signs Vital signs: Vital Signs Temp 98.6 F 10/18/19 07:00 Pulse 76 10/18/19 08:23 Resp 16 10/18/19 07:00 BP 173/89 10/18/19 07:00 Pulse Ox 94 L 10/18/19 07:00 Intake & Output 10/17/19 10/18/19 10/18/19 18:59 06:59 18:59 Intake Total 260 200 Output Total 900 Balance -900 260 200 Intake: Intake, IV Titration 240 Amount Sodium Chloride 0.9% 1, 240 000 ml @ 100 mls/hr IV . Q10H ANGEL Rx#:[id number] Oral 20 200 Output: Urine 900 Other: # Bowel Movements 1 - Exam The patient appeared well nourished and normally developed. Vital signs as documented. Head exam is unremarkable. No scleral icterus or corneal arcus noted. Neck is without jugular venous distension, thyromegaly, or carotid bruits. Carotid upstrokes are brisk bilaterally. Lungs are clear to auscultation and percussion. Cardiac exam reveals the PMI to be normally sized and situated. Rhythm is regular. First and second heart sounds normal. No murmurs, rubs or gallops. Abdominal exam reveals normal bowel sounds, no masses, no organomegaly and no aortic enlargement. Extremities are nonedematous and both femoral and pedal pulses are normal. Skin the patient has a urostomy site over the right upper quadrant area and the area urostomy is functioning producing adequate amount of urine. - Labs CBC & Chem 7: 10/18/19 06:28 10/18/19 06:28 Labs: Abnormal Lab Results - Last 24 Hours (Table) 10/17/19 10/18/19 10/18/19 Range/Units 06:45 06:28 06:28 RBC 3.78 L (3.80-5.40) m/uL Hgb 9.7 L (11.4-16.0) gm/dL Hct 31.6 L (34.0-46.0) % MCHC 30.8 L (31.0-37.0) g/dL Neutrophils # 9.2 H (1.3-7.7) k/uL Lymphocytes # 0.5 L (1.0-4.8) k/uL Chloride 109 H (98-107) mmol/L Carbon Dioxide 20 L (22-30) mmol/L BUN 34 H (7-17) mg/dL Glucose 116 H (74-99) mg/dL Procalcitonin 3.54 H (0.02-0.09) ng/mL Microbiology - Last 24 Hours (Table) 10/15/19 07:12 Blood Culture - Preliminary Blood No Growth after 72 hours 10/15/19 18:17 Blood Culture - Preliminary Blood No Growth after 48 hours Assessment and Plan Plan: 1 pleuritic chest pain, exact nature is not clear. Could be pneumonia although this is not absolutely definite. Other possibilities include chronic gallbladder disease. The patient is scheduled to undergo a cholecystectomy laparoscopic approach by Thursday. The patient has no major complaints of pleurisy for now unless she takes a very deep breath and she may feel some discomfort along the right chest area. Her symptoms improved. Repeat chest x- ray showed a small effusion the lung bases on lateral films. She is on room air oxygen. She has some mild pulmonary vessel congestion. 2 bronchial asthma 3 chronic atrial fibrillation, currently is on no anticoagulants, post ablation 4 history of bladder cancer with a previous urostomy 5 acid reflux 6 hypertension 7 history of vertigo 8 history of pacemaker insertion plan 1 Monitor fever pattern, currently the patient is afebrile. 2 Use incentive spirometer 3 the follow-up chest x-ray from today was reviewed. There are small bilateral pleural effusions. 4 proceed with a laparoscopic cholecystectomy 5 I'll continue combination of Rocephin and Zithromax 6 we'll continue to follow. I'm going to discontinue the Solu-Medrol. No need for prednisone burst taper. Continue to walk and ambulate and use the spirometer. We'll see her back tomorrow postop.
[2019-10-18] MEDS ORDERED: ONDANSETRON 4 MG/2 ML VIAL IVP ONE (11:24)
[2019-10-18] MEDS ORDERED: MIDAZOLAM 2 MG/2 ML VIAL IV PRN (11:24)
[2019-10-18] MEDS ORDERED: LIDOCAINE 1% 20 ML VIAL (10MG/ML) FOR IV START INTRADERMA PRN (11:24)
[2019-10-18] MEDS ORDERED: DEXAMETHASONE SOD PHOSPHATE 10 MG/ML 1 ML VIAL IV ONE (11:24)
[2019-10-18] MEDS ORDERED: HYDROmorphone 0.5 MG/0.5 ML SYRINGE IVP PRN (11:24)
--- NOTE | 2019-10-18 12:59 | P.PN ---
Subjective Progress Note Date: 10/18/19 CHIEF COMPLAINT: Abdominal pain HISTORY OF PRESENT ILLNESS: Patient examined at the bedside. She denies abdominal pain. Denies nausea or vomiting. Tolerating diet. Vital signs stable. WBC 10.2. Hemoglobin 9.7. PHYSICAL EXAM: Reviewed. GENERAL: Well-developed in no acute distress. HEENT: No sclera icterus. Extraocular movements grossly intact. Moist buccal mucosa. Head is atraumatic, normocephalic. ABDOMEN: Soft. Nondistended. Nontender. Urostomy to right lower quadrant. NEUROLOGIC: Alert and oriented. Cranial nerves II through XII grossly intact. ASSESSMENT: 1. Abdominal pain 2. Chronic cholecystitis PLAN: Low fat diet. NPO at midnight Patient scheduled for laparoscopic cholecystectomy tomorrow with Dr. Reese Nurse practitioner note has been reviewed by physician. Signing provider agrees with the documented findings, assessment, and plan of care. Objective - Vital Signs Vital signs: Vital Signs Temp 98.6 F 10/18/19 07:00 Pulse 74 10/18/19 11:51 Resp 16 10/18/19 07:00 BP 173/89 10/18/19 07:00 Pulse Ox 94 L 10/18/19 07:00 Intake & Output 10/17/19 10/18/19 10/18/19 18:59 06:59 18:59 Intake Total 260 200 Output Total 900 Balance -900 260 200 Intake: Intake, IV Titration 240 Amount Sodium Chloride 0.9% 1, 240 000 ml @ 100 mls/hr IV . Q10H ANGEL Rx#:[id number] Oral 20 200 Output: Urine 900 Other: # Bowel Movements 1 - Labs CBC & Chem 7: 10/18/19 06:28 10/18/19 06:28 Labs: Abnormal Lab Results - Last 24 Hours (Table) 10/17/19 10/18/19 10/18/19 Range/Units 06:45 06:28 06:28 RBC 3.78 L (3.80-5.40) m/uL Hgb 9.7 L (11.4-16.0) gm/dL Hct 31.6 L (34.0-46.0) % MCHC 30.8 L (31.0-37.0) g/dL Neutrophils # 9.2 H (1.3-7.7) k/uL Lymphocytes # 0.5 L (1.0-4.8) k/uL Chloride 109 H (98-107) mmol/L Carbon Dioxide 20 L (22-30) mmol/L BUN 34 H (7-17) mg/dL Glucose 116 H (74-99) mg/dL Procalcitonin 3.54 H (0.02-0.09) ng/mL Microbiology - Last 24 Hours (Table) 10/15/19 07:12 Blood Culture - Preliminary Blood No Growth after 72 hours 10/15/19 18:17 Blood Culture - Preliminary Blood No Growth after 48 hours
--- NOTE | 2019-10-18 16:33 | PN ---
PROGRESS NOTE DATE OF SERVICE: 10/18/2019 This 73-year-old woman who was admitted with possible pneumonia also had features of cholecystitis. Surgery is planning possible cholecystectomy tomorrow. The patient is being closely monitored. Past medical history reviewed. PHYSICAL EXAMINATION: Patient is alert, oriented x3. Pulse is 74. Blood pressure is 173/89, respirations 16, temperature 98.6, pulse ox 94% on room air. HEENT: Conjunctivae normal. NECK: No jugular venous distention. CARDIOVASCULAR SYSTEM: S1, S2 muffled. RESPIRATORY SYSTEM: Breath sounds diminished at the bases. Bilateral scattered rhonchi and crackles. Expiratory wheezing also present. ABDOMEN: Soft. Mild diffuse discomfort on the right lower part present. No mass palpable LEGS: No edema. No swelling. NERVOUS SYSTEM: No focal deficit. LABS: WBC 10.2, hemoglobin 9.7. Sodium 137, potassium 4.9. ASSESSMENT: 1. Acute bronchial asthma, acute exacerbation, with acute bilateral pneumonia, right more than left, possibly Gram-negative with possible sepsis, present on admission. 2. Possible acute on chronic cholecystitis. 3. Right-sided pleuritic pain. 4. Elevated lactic acid at 6.2, possibly secondary to sepsis, present on admission. 5. Elevated D-dimer with no evidence of pulmonary embolism. 6. Anemia, microcytic; anemia of chronic disease. 7. History of chronic atrial fibrillation. 8. History of gastroesophageal reflux disease. 9. Hypertension. 10.History of degenerative joint disease. 11.History of bladder cancer with urostomy. 12.History of small bowel obstruction. 13.History of cardiac ablation. 14.History of cardiac arrest. 15.History of hysterectomy. 16.History of left hip surgery. 17.History of permanent pacemaker. 18.History of anxiety, depression. 19.FULL CODE. RECOMMENDATIONS AND DISCUSSION: I recommend to continue current medications, continue with the monitoring, symptomatic treatment. Continue with the antibiotics. Continue with the bronchodilators. Closely follow with Surgery. DVT prophylaxis. Cholecystectomy tomorrow. Increase ambulation. Further recommendations to follow. MMODL / IJN: [id number] /
--- NOTE | 2019-10-18 23:57 | PN ---
PROGRESS NOTE DATE OF SERVICE: 10/18/2019 REASON FOR FOLLOWUP: Fever and acute cholecystitis. INTERVAL HISTORY: The patient is currently afebrile. The patient is breathing comfortably. The patient's pain to the right upper quadrant has slightly improved. Denies having any chest pain or shortness of breath. No cough. No nausea or vomiting. No abdominal pain or diarrhea. PHYSICAL EXAMINATION: Blood pressure is 145/91 with a pulse of 90, temperature 98.1. She is 95% on room air. General description is an elderly female up in the bed in no distress. RESPIRATORY SYSTEM: Unlabored breathing with decreased breath sounds at the base. No wheeze. HEART: S1, S2. Regular rate and rhythm. ABDOMEN: Soft. No tenderness. LABS: Hemoglobin 9.7, white count 10.2, BUN of 34, creatinine 0.77. Blood and urine cultures have been negative. DIAGNOSTIC IMPRESSION AND PLAN: Patient admitted to hospital with sepsis. Source is likely acute cholecystitis. Patient is scheduled for cholecystectomy tomorrow. Patient is currently covered with Rocephin; to continue. Will monitor clinical course closely. MMODL / IJN: [id number] /
[2019-10-19] MEDS: SODIUM CHLORIDE 0.9% 1,000 ML IV SCH ×3 (05:34→22:32)
[2019-10-19] MEDS ORDERED: ONDANSETRON 4 MG/2 ML VIAL IVP ONE ×2 (06:00→15:14)
[2019-10-19] MEDS ORDERED: DEXAMETHASONE SOD PHOSPHATE 10 MG/ML 1 ML VIAL IV ONE (06:00)
[2019-10-19] MEDS ORDERED: HYDROmorphone 0.5 MG/0.5 ML SYRINGE IVP PRN (06:00)
[2019-10-19] MEDS ORDERED: MIDAZOLAM 2 MG/2 ML VIAL IV PRN (06:00)
[2019-10-19] MEDS ORDERED: LIDOCAINE 1% 20 ML VIAL (10MG/ML) FOR IV START INTRADERMA PRN (06:00)
[2019-10-19] MEDS: BUDESONIDE 1 MG/2 ML NEBU INHALATION SCH ×2 (08:17→19:40)
[2019-10-19] MEDS: IPRATROPIUM-ALBUTEROL 3 ML NEB INHALATION SCH ×4 (08:17→19:40)
[2019-10-19] MEDS: HEPARIN SODIUM,PORCINE 5,000 UNIT/ML 1 ML VIAL SQ SCH ×2 (08:30→20:39)
[2019-10-19] MEDS: ASPIRIN 81 MG PO SCH (08:30)
[2019-10-19] MEDS: FUROSEMIDE 20 MG TAB PO SCH (08:30)
[2019-10-19] MEDS: POTASSIUM CHLORIDE ER 10 MEQ TAB.ER.PRT PO SCH (08:31)
[2019-10-19] MEDS: AZITHROMYCIN 500 MG TAB PO SCH (08:37)
[2019-10-19] MEDS: PANTOPRAZOLE 40 MG/10 ML VIAL IVP SCH (08:37)
[2019-10-19] MEDS: PROPAFENONE 150 MG TAB PO SCH ×2 (08:37→20:39)
[2019-10-19] MEDS: METOPROLOL TARTRATE 25 MG TAB PO SCH ×2 (08:37→20:39)
--- NOTE | 2019-10-19 12:16 | P.PN ---
Subjective Progress Note Date: 10/19/19 Principal diagnosis: Pleuritic chest pain, right basilar atelectasis versus pneumonia 73-year-old female patient was seen in consultation yesterday. She came into the emergency department because of worsening shortness of breath worsened the day of admission. She was seen by consultation by my partner. She apparently has a vague history of bronchial asthma. She was brought in via EMS and she was given IV Solu-Medrol in bouts. She was complaining of a very sharp right pl euritic chest pain. Chest x-ray did show borderline to mild cardiomegaly. There was diffuse interstitial prominence with 4 vessel congestion. Patchy retrocardiac pulmonary infiltrate could not be completely excluded. CAT scan of the chest was also done that showed left anterior chest wall pacemaker generator with right ventricular leads. There was moderate-sized hiatal hernia. Hydropic gallbladder measuring 4.6 cm without surrounding inflammation. The mediastinal lymphadenopathy. Mild septal Throughout and trace pleural effusion with patchy bibasilar pulmonary infiltrates seen and some focal volume loss in the left lower lobe. The HIDA scan showed delayed gallbladder filling findings at least consistent with chronic cholecystitis or biliary dyskinesia. Her white cell count is at 11. Electrodes are within normal limits. Lactic acid level was at 6.2 dropped down to 2.7. The cultures were negative and the patient is currently on a combination of Rocephin and Zithromax. The pain today is subsided and the patient is feeling better. No fever. No chills. She is on room air oxygen. No nausea or vomiting or emesis. She also has previous history of bladder cancer and she has undergone a previous On 10/18/2019, the patient remains on room air oxygen and she is pulling ap proximately 2000 on the incentive spirometer. She still has some discomfort in her right chest area mainly anterior and moving laterally and this is mainly with deep breathing. The plan is to proceed with a cholecystectomy tomorrow. No significant leukocytosis and the white cell count is at 10.2. 3. Chest x- ray was done this morning and it showed COPD along with coarse interstitium. There is some limited effusion the lung bases on lateral views. There is some mild cardio megaly or mild pulmonary vascular congestion. Room air pulse ox is 94%. Blood cultures are negative. The patient remains on a combination of Rocephin and Zithromax. Rest of the medications remain unchanged. He remains on IV Solu-Medrol 40 mg every 12 hours. On 10/19/2019 patient seen in follow-up on the regular medical surgical floor. She is resting comfortably in bed, in no acute distress, breathing comfortably, she is on room air, vital signs are stable, denies any chest pain, no pleurisy, no cough or congestion, lung sounds reveal coarse bibasilar crackles on physical exam, denies any shortness of breath, no fever or chills, patient remains on empiric antibiotics, no new chest x-rays today, yesterday chest x-ray was reviewed showing limited pleural effusions at the lung bases, mild cardiomegaly and mild pulmonary vascular congestion, no competitive abdominal pain, patient has been scheduled for laparoscopic cholecystectomy today, and the procedure scheduled at 2:30 this afternoon. Objective - Vital Signs Vital signs: Vital Signs Temp 98.0 F 10/19/19 07:00 Pulse 61 10/19/19 07:00 Resp 16 10/19/19 08:00 BP 150/80 10/19/19 07:00 Pulse Ox 96 10/19/19 07:00 Intake & Output 10/18/19 10/19/19 10/19/19 18:59 06:59 18:59 Intake Total 200 20 Output Total 1825 Balance -1625 20 Intake: Oral 200 20 Output: Urine 1825 Other: # Voids 1 - Exam GENERAL EXAM: Alert, very pleasant, 73-year-old white female, on room air comfortable in no apparent distress. HEAD: Normocephalic/atraumatic. EYES: Normal reaction of pupils, equal size. Conjunctiva pink, sclera white. NOSE: Clear with pink turbinates. THROAT: No erythema or exudates. NECK: No masses, no JVD, no thyroid enlargement, no adenopathy. CHEST: No chest wall deformity. Symmetrical expansion. LUNGS: Equal air entry with coarse basilar crackles, but no wheeze, rhonchi or dullness. CVS: Regular rate and rhythm, normal S1 and S2, no gallops, no murmurs, no rubs ABDOMEN: Soft, nontender. No hepatosplenomegaly, normal bowel sounds, no guarding or rigidity. EXTREMITIES: No clubbing, no edema, no cyanosis, 2+ pulses and upper and lower extremities. MUSCULOSKELETAL: Muscle strength and tone normal. SPINE: No scoliosis or deformity SKIN: No rashes CENTRAL NERVOUS SYSTEM: Alert and oriented -3. No focal deficits, tone is normal in all 4 extremities. PSYCHIATRIC: Alert and oriented -3. Appropriate affect. Intact judgment and insight. - Labs CBC & Chem 7: 10/18/19 06:28 10/18/19 06:28 Labs: Microbiology - Last 24 Hours (Table) 10/15/19 07:12 Blood Culture - Preliminary Blood No Growth after 96 hours 10/15/19 18:17 Blood Culture - Preliminary Blood No Growth after 72 hours Assessment and Plan Plan: Assessment: 1 pleuritic chest pain, exact nature is not clear. Could be pneumonia although this is not absolutely definite. Other possibilities include chronic gallbladder disease. The patient is scheduled to undergo a cholecystectomy laparoscopic approach by Thursday. The patient has no major complaints of pleurisy for now unless she takes a very deep breath and she may feel some discomfort along the right chest area. Her symptoms improved. Repeat chest x- ray showed a small effusion the lung bases on lateral films. She is on room air oxygen. She has some mild pulmonary vessel congestion. 2 bronchial asthma 3 chronic atrial fibrillation, currently is on no anticoagulants, post ablation 4 history of bladder cancer with a previous urostomy 5 acid reflux 6 hypertension 7 history of vertigo 8 history of pacemaker insertion Plan: Continue current treatment, patient remains on empiric antibiotics, no pulmonary complaints, no shortness of breath, no chest pain, no fever or chills. Encourage incentive spirometry use, patient is achieving 2000 on the today, no other acute events overnight, patient is awaiting laparoscopic cholecystectomy today by Dr. May, we'll see the patient in the postoperative period I performed a history & physical examination of the patient and discussed their management with my nurse practitioner, Loly Lebron. I reviewed the nurse practitioner's note and agree with the documented findings and plan of care. Lung sounds are positive for coarse basilar rales. The findings and the impression was discussed with the patient. I attest to the documentation by the nurse practitioner. Time with Patient: Less than 30
[2019-10-19] MEDS ORDERED: LOPERAMIDE 2 MG CAP PO PRN (13:44)
[2019-10-19] MEDS ORDERED: SODIUM CHLORIDE 0.9% 1,000 ML IV ONE (14:42)
[2019-10-19] MEDS ORDERED: DEXAMETHASONE SOD PHOS (MDV) 100 MG/10 ML VIAL IVP ONE (15:13)
[2019-10-19] MEDS ORDERED: BUPIVACAIN-EPI 0.25%-1:200,000 30 ML VIAL SQ ONE (16:59)
--- NOTE | 2019-10-19 17:24 | P.PN ---
Progress Note - Text Progress Note Date: 10/19/19 Patient was seen in the preoperative hold area. She denies a significant abdominal pain. On exam her abdomen soft. Patient's urostomy is in the right upper quadrant. Patient has a large scar in the right subcostal area. I discussed the patient underwent concern of possible injury to her urostomy. She is totally asymptomatic at this time. I recommended observation. Her scheduled laparoscopic cholecystectomy was canceled.
--- NOTE | 2019-10-19 17:31 | PN ---
PROGRESS NOTE DATE OF SERVICE: 10/19/2019 REASON FOR FOLLOWUP: 1. Acute cholecystitis. 2. Diarrhea. INTERVAL HISTORY: The patient is currently afebrile. The patient is breathing comfortably. The patient denies having any chest pain or shortness of breath or cough. PHYSICAL EXAMINATION: Blood pressure is 154/83 with a pulse of 62, temperature 98.2. She is 95% on room air. General description is an elderly female up in the bed in no distress. RESPIRATORY SYSTEM: Unlabored breathing. Clear to auscultation anteriorly. HEART: S1, S2. Regular rate and rhythm. ABDOMEN: Soft. No tenderness. LABS: Hemoglobin is 9.7, white count 10.2, BUN of 34, creatinine 0.77. DIAGNOSTIC IMPRESSION AND PLAN: Patient admitted to hospital with sepsis in this patient who did have a fever, elevated white count, likely secondary to acute cholecystitis. The patient needs to be maintained on antibiotic for now with Rocephin 1 gram daily and Zithromax discontinued. She is complaining of diarrhea. Will check her stool for C difficile and treat if positive. Continue with supportive care. MMODL / IJN: [id number] /
[2019-10-19] MEDS: LACTATED RINGERS 1,000 ML IV SCH ×2 (17:36→17:37)
[2019-10-19] MEDS: CHOLESTYRAMINE (WITH SUGAR) 4 GM PACKET PO SCH (17:54)
[2019-10-20] MEDS: BUDESONIDE 1 MG/2 ML NEBU INHALATION SCH (07:59)
[2019-10-20] MEDS: IPRATROPIUM-ALBUTEROL 3 ML NEB INHALATION SCH ×3 (07:59→15:38)
[2019-10-20 08:24] VITALS: RESP 15
[2019-10-20] MEDS: HEPARIN SODIUM,PORCINE 5,000 UNIT/ML 1 ML VIAL SQ SCH (08:37)
[2019-10-20] MEDS: METOPROLOL TARTRATE 25 MG TAB PO SCH (08:37)
[2019-10-20] MEDS: ASPIRIN 81 MG PO SCH (08:37)
[2019-10-20] MEDS: FUROSEMIDE 20 MG TAB PO SCH (08:37)
[2019-10-20] MEDS: PANTOPRAZOLE 40 MG/10 ML VIAL IVP SCH (08:37)
[2019-10-20] MEDS: POTASSIUM CHLORIDE ER 10 MEQ TAB.ER.PRT PO SCH (08:38)
[2019-10-20] MEDS: PROPAFENONE 150 MG TAB PO SCH (08:38)
[2019-10-20] MEDS: SODIUM CHLORIDE 0.9% 1,000 ML IV SCH (10:13)
[2019-10-20] MEDS: CHOLESTYRAMINE (WITH SUGAR) 4 GM PACKET PO SCH (10:13)
[2019-10-20] MEDS: LACTATED RINGERS 1,000 ML IV SCH (10:15)
[2019-10-20 14:52] VITALS: BP 156/78; PULSE 83; TEMP 97.9
--- NOTE | 2019-10-20 14:53 | P.PN ---
Subjective Progress Note Date: 10/20/19 Principal diagnosis: Pleuritic chest pain, right basilar atelectasis versus pneumonia 73-year-old female patient was seen in consultation yesterday. She came into the emergency department because of worsening shortness of breath worsened the day of admission. She was seen by consultation by my partner. She apparently has a vague history of bronchial asthma. She was brought in via EMS and she was given IV Solu-Medrol in bouts. She was complaining of a very sharp right pl euritic chest pain. Chest x-ray did show borderline to mild cardiomegaly. There was diffuse interstitial prominence with 4 vessel congestion. Patchy retrocardiac pulmonary infiltrate could not be completely excluded. CAT scan of the chest was also done that showed left anterior chest wall pacemaker generator with right ventricular leads. There was moderate-sized hiatal hernia. Hydropic gallbladder measuring 4.6 cm without surrounding inflammation. The mediastinal lymphadenopathy. Mild septal Throughout and trace pleural effusion with patchy bibasilar pulmonary infiltrates seen and some focal volume loss in the left lower lobe. The HIDA scan showed delayed gallbladder filling findings at least consistent with chronic cholecystitis or biliary dyskinesia. Her white cell count is at 11. Electrodes are within normal limits. Lactic acid level was at 6.2 dropped down to 2.7. The cultures were negative and the patient is currently on a combination of Rocephin and Zithromax. The pain today is subsided and the patient is feeling better. No fever. No chills. She is on room air oxygen. No nausea or vomiting or emesis. She also has previous history of bladder cancer and she has undergone a previous On 10/18/2019, the patient remains on room air oxygen and she is pulling ap proximately 2000 on the incentive spirometer. She still has some discomfort in her right chest area mainly anterior and moving laterally and this is mainly with deep breathing. The plan is to proceed with a cholecystectomy tomorrow. No significant leukocytosis and the white cell count is at 10.2. 3. Chest x- ray was done this morning and it showed COPD along with coarse interstitium. There is some limited effusion the lung bases on lateral views. There is some mild cardio megaly or mild pulmonary vascular congestion. Room air pulse ox is 94%. Blood cultures are negative. The patient remains on a combination of Rocephin and Zithromax. Rest of the medications remain unchanged. He remains on IV Solu-Medrol 40 mg every 12 hours. On 10/19/2019 patient seen in follow-up on the regular medical surgical floor. She is resting comfortably in bed, in no acute distress, breathing comfortably, she is on room air, vital signs are stable, denies any chest pain, no pleurisy, no cough or congestion, lung sounds reveal coarse bibasilar crackles on physical exam, denies any shortness of breath, no fever or chills, patient remains on empiric antibiotics, no new chest x-rays today, yesterday chest x-ray was reviewed showing limited pleural effusions at the lung bases, mild cardiomegaly and mild pulmonary vascular congestion, no competitive abdominal pain, patient has been scheduled for laparoscopic cholecystectomy today, and the procedure scheduled at 2:30 this afternoon. On 10/20/2019 patient is seen in follow-up medical surgical floor, her laparoscopic cholecystectomy was canceled yesterday by the surgeon, because of close proximity to her urostomy in the right upper quadrant. And because patient was clinically asymptomatic was agreed that the procedure would be canceled. This morning she seen in follow-up, she is awake and alert, she is room air, with a pulse ox of 95%, she is afebrile, denies any chest pain, denies any breathing difficulty, her lung sounds are positive for some coarse bibasilar crackles, no rhonchi, no wheezing no cough or phlegm production, she is working on incentive spirometer, she is achieving 7169-5111 ML on the today. Blood and urine cultures were negative. She remains on Zosyn for antibiotic coverage. ID service is following, and discharged home is anticipated today Objective - Vital Signs Vital signs: Vital Signs Temp 99.1 F 10/20/19 07:00 Pulse 68 10/20/19 07:00 Resp 15 10/20/19 07:00 BP 141/79 10/20/19 07:00 Pulse Ox 95 10/20/19 07:00 Intake & Output 10/19/19 10/20/19 10/20/19 18:59 06:59 18:59 Intake Total 150 1300 375 Balance 150 1300 375 Intake: Intake, IV Titration 1200 Amount Sodium Chloride 0.9% 1, 1200 000 ml @ 100 mls/hr IV . Q10H [facility] Rx#:[id number] Oral 150 100 375 Other: # Voids 1 1 - Exam GENERAL EXAM: Alert, very pleasant, 73-year-old white female, on room air comfortable in no apparent distress. HEAD: Normocephalic/atraumatic. EYES: Normal reaction of pupils, equal size. Conjunctiva pink, sclera white. NOSE: Clear with pink turbinates. THROAT: No erythema or exudates. NECK: No masses, no JVD, no thyroid enlargement, no adenopathy. CHEST: No chest wall deformity. Symmetrical expansion. LUNGS: Equal air entry with coarse basilar crackles, but no wheeze, rhonchi or dullness. CVS: Regular rate and rhythm, normal S1 and S2, no gallops, no murmurs, no rubs ABDOMEN: Soft, nontender. No hepatosplenomegaly, normal bowel sounds, no guarding or rigidity. EXTREMITIES: No clubbing, no edema, no cyanosis, 2+ pulses and upper and lower extremities. MUSCULOSKELETAL: Muscle strength and tone normal. SPINE: No scoliosis or deformity SKIN: No rashes CENTRAL NERVOUS SYSTEM: Alert and oriented -3. No focal deficits, tone is normal in all 4 extremities. PSYCHIATRIC: Alert and oriented -3. Appropriate affect. Intact judgment and insight. - Labs CBC & Chem 7: 10/18/19 06:28 10/18/19 06:28 Labs: Microbiology - Last 24 Hours (Table) 10/15/19 07:12 Blood Culture - Preliminary Blood No Growth after 120 hours 10/15/19 18:17 Blood Culture - Preliminary Blood No Growth after 96 hours Assessment and Plan Plan: Assessment: 1 pleuritic chest pain, exact nature is not clear. Could be pneumonia although this is not absolutely definite. Other possibilities include chronic gallb ladder disease. The patient is scheduled to undergo a cholecystectomy laparoscopic approach by Thursday. The patient has no major complaints of pleurisy for now unless she takes a very deep breath and she may feel some discomfort along the right chest area. Her symptoms improved. Repeat chest x- ray showed a small effusion the lung bases on lateral films. She is on room air oxygen. She has some mild pulmonary vessel congestion. 2 bronchial asthma 3 chronic atrial fibrillation, currently is on no anticoagulants, post ablation 4 history of bladder cancer with a previous urostomy 5 acid reflux 6 hypertension 7 history of vertigo 8 history of pacemaker insertion Plan: No respiratory complaints, no shortness of breath, no cough or congestion, she is working on incentive spirometer, vital signs are stable, no complaints of abdominal pain, patient's laparoscopic alessandra was canceled by surgery, in view of close proximity to patient's urostomy, and in view of her overall improving and stable clinical status. She is tolerating oral intake, no acute events overnight, patient remains on Rocephin for antibiotic coverage, and he is anticipated to go home today, with antibiotics per ID service recommendations I performed a history & physical examination of the patient and discussed their management with my nurse practitioner, Loly Lebron. I reviewed the nurse practitioner's note and agree with the documented findings and plan of care. Lung sounds are positive for coarse basilar rales. The findings and the impression was discussed with the patient. I attest to the documentation by the nurse practitioner. Time with Patient: Less than 30
--- NOTE | 2019-10-20 17:11 | PN ---
PROGRESS NOTE DATE OF SERVICE: 10/20/2019 REASON FOR FOLLOWUP: Fever, likely acute cholecystitis. INTERVAL HISTORY: The patient is currently afebrile. The patient is breathing comfortably. Denies having any chest pain, shortness of breath or cough. No nausea, no vomiting and no further diarrhea. PHYSICAL EXAMINATION: Blood pressure 141/79 with a pulse of 68, temperature 99.1, she is 95% on room air. General description is an elderly female up in the room in no distress. Respiratory system: Unlabored breathing, clear to auscultation anteriorly. Heart S1, S2. Regular rate and rhythm. Abdomen soft, no tenderness. LAB: No new labs have been obtained today. Blood culture has been negative. DIAGNOSTIC IMPRESSION AND PLAN: Patient admitted to the hospital with fever, right-sided abdominal pain, likely acute cholecystitis. The patient seemed to have shown overall clinical improvement on antibiotics. The surgery has been postponed. Plan for short course of oral antibiotic on discharge, possibly Cipro or Ceftin and monitor clinical course closely. MMODL / IJN: [id number] /
--- NOTE | 2019-10-21 07:51 | DS ---
DISCHARGE SUMMARY DATE OF SERVICE: 10/20/2018 FINAL DIAGNOSES: 1. Acute bronchial asthma, acute exacerbation, with acute bilateral pneumonia, right more the left, possibly gram-negative with possible sepsis present on admission. 2. Possible acute on chronic cholecystitis. 3. Right-sided pleuritic pain. 4. Elevated lactic acid 6.2, possibly secondary to sepsis present on admission. 5. History of urostomy on the right side. 6. Elevated D-dimer with no evidence of pulmonary embolism. 7. Anemia, microcytic anemia of chronic disease. 8. History of chronic atrial fibrillation. 9. History of gastroesophageal reflux disease. 10.Hypertension. 11.History of degenerative joint disease. 12.History of bladder cancer with urostomy. 13.History of small bowel obstruction. 14.History of cardiac ablation. 15.History of cardiac arrest. 16.Hysterectomy. 17.History of left hip surgery. 18.History of permanent pacemaker. 19.History of anxiety, depression. 20.FULL CODE. DISCHARGE DISPOSITION: The patient will be discharged in a stable condition with guarded prognosis. Total time is 35 minutes. HISTORY OF PRESENT ILLNESS: This is a 73-year-old woman with a past medical history of multiple medical problems, was admitted with acute bronchial asthma, acute exacerbation, as well as possible pneumonia and as well as sepsis as mentioned earlier. Patient treated symptomatically. Patient improved significantly. The patient also had abdominal discomfort and cholecystis suspected but; however, because of the anatomy and history of urostomy,. Dr. Reese recommended the patient to follow up in the outpatient setting. The patient is clinically better also. The patient will be discharged in stable condition with guarded prognosis. The patient is followed by Dr. Rice in the outpatient setting. Total time is 35 minutes. On exam, vitals are stable. CARDIOVASCULAR SYSTEM: S1, S2. ABDOMEN: Soft. NERVOUS SYSTEM: No focal deficits. DISCHARGE ADVICE: Diet is soft per surgery, low residue. DISCHARGE MEDICATIONS: Are as follows: 1. Cipro 500 mg p.o. b.i.d. for 3 days. 2. DuoNeb q.i.d. and p.r.n. 3. Symbicort. 4. Pulmicort 1 puff b.i.d. 5. Cholestyramine p.r.n. 6. Ultram 50 mg daily p.r.n. 7. Prilosec 20 mg q.48 hours for insomnia. 8. Ambien 10 mg q.h.s. p.r.n. 9. 10 mg p.o. daily. 10.Antivert 25 mg daily p.r.n. 11.Zofran 4 mg q.6 p.r.n. 12.Propafenone 150 mg p.o. b.i.d. 13.Lopressor 25 mg p.o. b.i.d. 14.Aspirin 81 mg p.o. daily. 15.Lasix 20 mg p.o. daily. 16.Melatonin 10 mg q.h.s. p.r.n. MMODL / IJN: [id number] /
== END 2019-10-20 15:40 | disposition home or self-care (01) | DRG 871 ==
LOC: EC 06:40 → 4SSUR 09:31
PROVIDERS: ADMIT Internal Medicine; ATTEND Internal Medicine
DX: A41.50 Gram-negative sepsis, unspecified (principal); J15.6 Pneumonia due to other Gram-negative bacteria; I48.20 Chronic atrial fibrillation, unspecified; E87.2 Acidosis; K82.1 Hydrops of gallbladder; J45.901 Unspecified asthma with (acute) exacerbation; K81.2 Acute cholecystitis with chronic cholecystitis; J44.0 Chronic obstructive pulmonary disease with (acute) lower respiratory infection; J44.1 Chronic obstructive pulmonary disease with (acute) exacerbation; J90 Pleural effusion, not elsewhere classified; D63.8 Anemia in other chronic diseases classified elsewhere; Z53.8 Procedure and treatment not carried out for other reasons; D50.9 Iron deficiency anemia, unspecified; I10 Essential (primary) hypertension; M19.90 Unspecified osteoarthritis, unspecified site; K44.9 Diaphragmatic hernia without obstruction or gangrene; K21.9 Gastro-esophageal reflux disease without esophagitis; R91.8 Other nonspecific abnormal finding of lung field; R59.0 Localized enlarged lymph nodes; F41.9 Anxiety disorder, unspecified; Z79.82 Long term (current) use of aspirin; Z79.899 Other long term (current) drug therapy; Z86.74 Personal history of sudden cardiac arrest; Z95.0 Presence of cardiac pacemaker; Z93.6 Other artificial openings of urinary tract status; Z85.51 Personal history of malignant neoplasm of bladder; Z90.710 Acquired absence of both cervix and uterus; Z90.49 Acquired absence of other specified parts of digestive tract; Z86.79 Personal history of other diseases of the circulatory system; Z98.890 Other specified postprocedural states; Z87.891 Personal history of nicotine dependence; Z98.42 Cataract extraction status, left eye; Z98.41 Cataract extraction status, right eye; Z88.5 Allergy status to narcotic agent; Z88.7 Allergy status to serum and vaccine; Z88.8 Allergy status to other drugs, medicaments and biological substances; Z82.5 Family history of asthma and other chronic lower respiratory diseases; Z82.3 Family history of stroke; Z83.49 Family history of other endocrine, nutritional and metabolic diseases; Z83.79 Family history of other diseases of the digestive system; Z83.511 Family history of glaucoma
CPT/HCPCS: 36415; 71046; 71275; 78227; 80048; 80053; 81001; 83605; 83735; 83880; 84145; 84484; 85025; 85379; 85610; 85730; 87040; 87086; 87502; 93005; 94640; 94760; 96361; 96365; 99285

== ENCOUNTER 2020-06-01 23:18 | Inpatient (IN) | payer MEDICARE, OTHER ==
--- NOTE | 2020-06-01 23:46 | ED ---
Abdominal Pain HPI - General Stated Complaint: Abdominal Pain Time Seen by Provider: 06/01/20 23:28 Source: patient, EMS Mode of arrival: EMS - History of Present Illness Initial Comments: Patient is 74-year-old female with history of small bowel obstruction presenting to emergency Department with chief complaint of abdominal pain. Patient states she developed upper abdominal and periorbital pain earlier today without radiation. Patient states she does have "flipping of the bowels". States she developed small bowel obstructions after she had a urostomy placed secondary to bladder cancer. Patient states she also had nausea with multiple episodes of nonbilious, nonbloody vomiting prior to ED arrival. Patient states the pain is minimal at this time and it did improve after she vomited. States this feels like her previous small bowel obstruction. States she still able to pass gas. She reports the urostomy is working well although the urine is smelly worse than usual over the last few days. Denies Chest pain shortness of breath back pain. - Related Data Home Medications Medication Instructions Recorded Confirmed Omeprazole [PriLOSEC] 20 mg PO Q48H 02/05/15 10/15/19 traMADol HCl [Ultram] 50 mg PO DAILY PRN 02/05/15 10/15/19 Meclizine [Antivert] 25 mg PO DAILY PRN 09/01/16 10/15/19 Ondansetron [Zofran] 4 mg PO Q6H PRN 09/01/16 10/15/19 Potassium Chloride [K-Tab ER] 10 meq PO DAILY 09/01/16 10/15/19 Propafenone HCl 150 mg PO BID 09/01/16 10/15/19 Zolpidem [Ambien] 5 mg PO HS PRN 09/01/16 10/15/19 Aspirin 81 mg PO DAILY 10/15/19 10/15/19 Furosemide [Lasix] 20 mg PO DAILY 10/15/19 10/15/19 Melatonin 10 mg PO HS PRN 10/15/19 10/15/19 Previous Rx's Medication Instructions Recorded Metoprolol Tartrate [Lopressor] 25 mg PO BID #60 tab 12/21/16 Budesonide [Pulmicort] 1 mg INHALATION RT-BID #30 nebu 10/20/19 Cholestyramine (with Sugar) 4 gm PO BID@1000,1800 #10 packet 10/20/19 [Questran Packet] Ciprofloxacin HCl [Cipro] 500 mg PO BID 3 Days #6 tab 10/20/19 Ipratropium-Albuterol Nebulize 3 ml INHALATION RT-QID #120 10/20/19 [Duoneb 0.5 mg-3 mg/3 ml Soln] ampul.neb Allergies Allergy/AdvReac Type Severity Reaction Status Date / Time ether Allergy Anaphylaxis Verified 10/15/19 06:51 tetanus and diphtheria Allergy Unknown Verified 10/15/19 06:51 toxoids [tetanus & diphtheria toxoids] codeine AdvReac Nausea Verified 10/15/19 06:51 Review of Systems ROS Statement: Those systems with pertinent positive or pertinent negative responses have been documented in the HPI. ROS Other: All systems not noted in ROS Statement are negative. Past Medical History Past Medical History: Atrial Fibrillation, Cancer, GERD/Reflux, Hypertension, Osteoarthritis (OA) Additional Past Medical History / Comment(s): bladder cancer with urostomy, Small Bowel Obstruction, vertigo History of Any Multi-Drug Resistant Organisms: None Reported Past Surgical History: Ablation, Bladder Surgery, Heart Catheterization, Hernia Repair, Hysterectomy, Orthopedic Surgery, Pacemaker, Tonsillectomy Additional Past Surgical History / Comment(s): LEFT HIP SURGERY x 5, GRAFTS AND MARNIE 2015, ablasion CARDIOVERSION, urostomy 10/2010, cataracts 2017 Past Anesthesia/Blood Transfusion Reactions: Previous Problems w/ Anesthesia Additional Past Anesthesia/Blood Transfusion Reaction / Comment(s): asthma attack Type of Cardiac Device: Permanent Pacemaker Device Placement Date:: 2006 Past Psychological History: Anxiety, Depression Past Alcohol Use History: None Reported Past Drug Use History: None Reported - Past Family History Mother Family Medical History: Asthma, GERD/Reflux Additional Family Medical History / Comment(s): diverticulitus, glaucoma Father Family Medical History: Hyperlipidemia Additional Family Medical History / Comment(s): stroke, brain tumour General Exam Limitations: no limitations General appearance: alert, in no apparent distress Head exam: Present: atraumatic, normal inspection Eye exam: Present: normal appearance, PERRL, EOMI Pupils: Present: normal accommodation ENT exam: Present: normal exam, normal oropharynx, mucous membranes moist Neck exam: Present: normal inspection, full ROM. Absent: tenderness Respiratory exam: Present: normal lung sounds bilaterally. Absent: respiratory distress, wheezes Cardiovascular Exam: Present: regular rate, normal rhythm, normal heart sounds GI/Abdominal exam: Present: soft, tenderness (Periumbilical and upper abdominal). Absent: guarding, rebound, rigid Extremities exam: Present: normal inspection, full ROM. Absent: tenderness Back exam: Present: normal inspection, full ROM. Absent: tenderness, CVA tenderness (R), CVA tenderness (L) Neurological exam: Present: alert, oriented X3 Psychiatric exam: Present: normal affect, normal mood Skin exam: Present: warm, dry, intact, normal color Course Vital Signs 06/01/20 06/02/20 23:19 00:30 Temperature 97.9 F 98.5 F Pulse Rate 65 64 Respiratory 18 18 Rate Blood Pressure 131/79 134/56 O2 Sat by Pulse 96 97 Oximetry Medical Decision Making - Medical Decision Making Patient 74-year-old female with history of small bowel obstruction presenting to the emergency department with chief complaint abdominal pain nausea vomiting. Exam patient has. Umbilical and epigastric tenderness to palpation. Patient is otherwise passing gas. UA does reveal a UTI with elevated white blood cells, leukocyte esterase and nitrates. Patient started on Rocephin. Urine culture pending. CBC reveals mild leukocytosis. CMP reveals elevated BUN of 22. CT of abdomen and pelvis reveals a partial mechanical small bowel obstruction which appears to be unchanged compared to last exam. Transition point in the mid ileum not change compared to old exam. Patient was given IV fluids, antiemetics and analgesia. A reevaluation patient reports the nausea has resolved but the pain continues to persist. Patient was given additional analgesia and she will be admitted for further medical management. NPO. Case discussed with . Admitting is Dr Garduno General surgery on consult - Lab Data Result diagrams: 06/02/20 00:13 06/02/20 00:13 Lab Results 06/02/20 06/02/20 06/02/20 Range/Units 00:13 00:13 00:13 WBC 11.7 H (3.8-10.6) k/uL RBC 4.58 (3.80-5.40) m/uL Hgb 12.1 (11.4-16.0) gm/dL Hct 37.6 (34.0-46.0) % MCV 82.0 (80.0-100.0) fL MCH 26.4 (25.0-35.0) pg MCHC 32.2 (31.0-37.0) g/dL RDW 14.2 (11.5-15.5) % Plt Count 239 (150-450) k/uL Neutrophils % 89 % Lymphocytes % 5 % Monocytes % 3 % Eosinophils % 3 % Basophils % 0 % Neutrophils # 10.3 H (1.3-7.7) k/uL Lymphocytes # 0.6 L (1.0-4.8) k/uL Monocytes # 0.3 (0-1.0) k/uL Eosinophils # 0.3 (0-0.7) k/uL Basophils # 0.0 (0-0.2) k/uL Hypochromasia Slight Sodium 134 L (137-145) mmol/L Potassium 4.9 (3.5-5.1) mmol/L Chloride 102 (98-107) mmol/L Carbon Dioxide 26 (22-30) mmol/L Anion Gap 6 mmol/L BUN 22 H (7-17) mg/dL Creatinine 1.00 (0.52-1.04) mg/dL Est GFR (CKD-EPI)AfAm 64 (>60 ml/min/1.73 sqM) Est GFR (CKD-EPI)NonAf 56 (>60 ml/min/1.73 sqM) Glucose 105 H (74-99) mg/dL Calcium 9.8 (8.4-10.2) mg/dL Total Bilirubin 0.5 (0.2-1.3) mg/dL AST 22 (14-36) U/L ALT 9 (4-34) U/L Alkaline Phosphatase 109 (38-126) U/L Total Protein 7.0 (6.3-8.2) g/dL Albumin 4.2 (3.5-5.0) g/dL Lipase 236 (23-300) U/L Urine Color Yellow Urine Appearance Turbid H (Clear) Urine pH 8.5 H (5.0-8.0) Ur Specific [place] 1.013 (1.001-1.035) Urine Protein Trace H (Negative) Urine Glucose (UA) Negative (Negative) Urine Ketones Negative (Negative) Urine Blood Negative (Negative) Urine Nitrite Positive H (Negative) Urine Bilirubin Negative (Negative) Urine Urobilinogen <2.0 (<2.0) mg/dL Ur Leukocyte Esterase Large H (Negative) Urine RBC 9 H (0-5) /hpf Urine WBC 24 H (0-5) /hpf Ur Squamous Epith Cells <1 (0-4) /hpf Uric Acid Crystals Moderate H (None) /hpf Urine Bacteria Rare H (None) /hpf Disposition Clinical Impression: Partial small bowel obstruction, Abdominal pain, Nausea & vomiting Disposition: ADMITTED IP TO THIS [facility] Condition: Good Instructions (If sedation given, give patient instructions): Abdominal Pain (ED) Additional Instructions: Patient will be admitted Is patient prescribed a controlled substance at d/c from ED?: No Referrals: Nita Rice MD [Primary Care Provider] - 1-2 days Time of Disposition: 02:05
[2020-06-01] MEDS ORDERED: SODIUM CHLORIDE 0.9% 1,000 ML IV STA (23:54)
[2020-06-02 00:26] LABS: Basophils % (A) 0 %; Eosinophils # (A) 0.3 k/uL (0-0.7); Eosinophils % (A) 3 %; HCT 37.6 % (34.0-46.0); HGB 12.1 gm/dL (11.4-16.0); Hypochromasia Slight; Lymphocytes # (A) 0.6 k/uL (1.0-4.8); Lymphocytes % (A) 5 %; MCH 26.4 pg (25.0-35.0); MCHC 32.2 g/dL (31.0-37.0); Mean Platelet Volume 8.8; Monocytes # (A) 0.3 k/uL (0-1.0); Monocytes % (A) 3 %; Neutrophils # (A) 10.3 k/uL (1.3-7.7); Neutrophils % (A) 89 %; Platelet Count 239 k/uL (150-450); RBC 4.58 m/uL (3.80-5.40); RDW 14.2 % (11.5-15.5); WBC 11.7 k/uL (3.8-10.6)
[2020-06-02] MEDS ORDERED: ONDANSETRON 4 MG/2 ML VIAL IVP STA (00:29)
[2020-06-02] MEDS ORDERED: KETOROLAC 15 MG/ML 1 ML VIAL IVP STA (00:29)
[2020-06-02 00:33] LABS: Appearance,Urine Turbid (Clear); Bacteria,Urine Rare /hpf; Bilirubin,Urine Negative (Negative); Blood,Urine Negative (Negative); Color,Urine Yellow; Glucose,Urine (UA) Negative (Negative); Ketones,Urine Negative (Negative); Leukocyte Esterase,Urine Large (Negative); Nitrite,Urine Positive (Negative); PH, Urine 8.5 (5.0-8.0); Protein,Urine Trace (Negative); RBC,Urine 9 /hpf (0-5); Specific Gravity,Urine 1.013 (1.001-1.035); Squamous Epithelial Cell,Urine <1 /hpf (0-4); Uric Acid Crystals,Urine Moderate /hpf; Urobilinogen,Urine <2.0 mg/dL (<2.0); WBC,Urine 24 /hpf (0-5)
[2020-06-02 00:39] LABS: Albumin 4.2 g/dL (3.5-5.0); Calcium 9.8 mg/dL (8.4-10.2); Potassium 4.9 mmol/L (3.5-5.1); Total Bilirubin 0.5 mg/dL (0.2-1.3)
--- NOTE | 2020-06-02 01:28 | CT ---
EXAMINATION TYPE: CT abdomen pelvis w con DATE OF EXAM: 06/02/2020 COMPARISON: 07/09/2019 HISTORY: concern for sbo, hx of sbo, periumbilical pain CT DLP: 1305.6 mGycm Automated exposure control for dose reduction was used. CONTRAST: Performed with IV Contrast, patient injected with 80 mL of Isovue 300. Images were obtained from the diaphragm to the floor the pelvis with IV contrast. Lung bases are clear. There is a moderate-sized hiatal hernia. There is no pericardial effusion. Ther e is no pleural effusion. Liver spleen pancreas gallbladder appear normal. Bile ducts are nondilated. There is a oval-shaped intermediate density 2.5 x 2 cm left adrenal mass. Right adrenal gland appears normal. There is significant atrophy of the right kidney. Left kidney appears to have some compensat ory hypertrophy. Delayed images show very little renal function on the right side. There is normal ex cretion on the left side. Ureters are not dilated. There is no retroperitoneal adenopathy. There is l eft hip prosthesis. There is advanced arthritic change in the right hip joint with apparent old hip d ysplasia or impacted subcapital fracture of the right femur. There is a left hip prosthesis with meta l artifact. I see no acute fracture. The pelvic ring is intact. There is ileal conduit. Urinary bladd er appears absent. There are multiple mildly dilated fluid-filled loops of small bowel in the mid abdomen. Small bowel m easures up to 3.4 cm. The large bowel is not dilated. There appears to be transition point in the rig ht mid abdomen best seen on coronal image 80. This is also seen on axial image 48. This is at the mid ileum and could be a stricture. There is no free air. There is no ascites. There is no mesenteric edema. IMPRESSION: There is partial mechanical small bowel obstruction unchanged compared to old exam. Transition point in the mid ileum not changed compared to old exam. Advanced right renal atrophy or hypoplasia unchanged. No renal obstruction. Left adrenal mass unchang ed.
[2020-06-02] MEDS ORDERED: HYDROmorphone 1 MG/ML 1 ML SYRINGE IVP STA (02:00)
[2020-06-02] MEDS ORDERED: HYDROmorphone 0.5 MG/0.5 ML SYRINGE IVP PRN (02:05)
[2020-06-02] MEDS ORDERED: LORazepam 2 MG/ML INJ IV PRN (02:05)
[2020-06-02] MEDS ORDERED: ONDANSETRON 4 MG/2 ML VIAL IVP PRN (02:05)
[2020-06-02] MEDS ORDERED: HYDROmorphone 1 MG/ML 1 ML SYRINGE IVP PRN (02:05)
[2020-06-02] MEDS ORDERED: NALOXONE 0.4 MG/ML 1 ML VIAL IV PRN (02:05)
[2020-06-02] MEDS ORDERED: SODIUM CHLORIDE 0.9% 1,000 ML IV SCH (02:15)
--- NOTE | 2020-06-02 12:05 | P.GSCN ---
History of Present Illness Consult date: 06/02/20 Reason for Consult: Abdominal pain History of present illness: The patient's a 74-year-old female who has episodes of partial small bowel obstr uction for the last few years. She has a history of bladder cancer treated surgically in the past. She has episodes of pressure bulb section since that time. This started yesterday. She was having nausea, vomiting and pain. Since arriving to the floor from ER she's begin passing flatus and her abdomen feels much better. Denies any current nausea. Review of Systems All systems: negative Past Medical History Past Medical History: Atrial Fibrillation, Cancer, GERD/Reflux, Hypertension, Osteoarthritis (OA) Additional Past Medical History / Comment(s): bladder cancer with urostomy, Small Bowel Obstruction, vertigo History of Any Multi-Drug Resistant Organisms: None Reported Past Surgical History: Ablation, Bladder Surgery, Heart Catheterization, Hernia Repair, Hysterectomy, Orthopedic Surgery, Pacemaker, Tonsillectomy Additional Past Surgical History / Comment(s): LEFT HIP SURGERY x 5, GRAFTS AND MARNIE 2015, ablasion CARDIOVERSION, urostomy 10/2010, cataracts 2017 Past Anesthesia/Blood Transfusion Reactions: Previous Problems w/ Anesthesia Additional Past Anesthesia/Blood Transfusion Reaction / Comm: asthma attack Type of Cardiac Device: Permanent Pacemaker Device Placement Date:: 2012 Past Psychological History: Anxiety Smoking Status: Former smoker Past Alcohol Use History: None Reported Past Drug Use History: None Reported - Past Family History Mother Family Medical History: Asthma, GERD/Reflux Additional Family Medical History / Comment(s): diverticulitus, glaucoma Father Family Medical History: Hyperlipidemia Additional Family Medical History / Comment(s): stroke, brain tumour Medications and Allergies Home Medications Medication Instructions Recorded Confirmed Type Omeprazole [PriLOSEC] 20 mg PO Q48H 02/05/15 06/02/20 History traMADol HCl [Ultram] 50 mg PO DAILY PRN 02/05/15 06/02/20 History Meclizine [Antivert] 25 mg PO DAILY PRN 09/01/16 06/02/20 History Ondansetron [Zofran] 4 mg PO Q8H PRN 09/01/16 06/02/20 History Potassium Chloride [K-Tab ER] 10 meq PO DAILY 09/01/16 06/02/20 History Metoprolol Tartrate [Lopressor] 25 mg PO BID #60 tab 03/12/17 08/22/20 Rx Aspirin 325 mg PO DAILY 10/15/19 06/02/20 History Furosemide [Lasix] 20 mg PO DAILY 10/15/19 06/02/20 History Melatonin 10 mg PO HS PRN 10/15/19 06/02/20 History Furosemide [Lasix] 40 mg PO HS 06/02/20 06/02/20 History Olmesartan [Benicar] 20 mg PO DAILY 06/02/20 06/02/20 History Propafenone HCl 150 mg PO BID 06/02/20 06/02/20 History Zolpidem [Ambien] 10 mg PO HS PRN 06/02/20 06/02/20 History Allergies Allergy/AdvReac Type Severity Reaction Status Date / Time ether Allergy Anaphylaxis Verified 06/02/20 09:28 tetanus and diphtheria Allergy Unknown Verified 06/02/20 09:28 toxoids [tetanus & diphtheria toxoids] codeine AdvReac Nausea Verified 06/02/20 09:28 Surgical - Exam Osteopathic Statement: *. No significant issues noted on an osteopathic structural exam other than those noted in the History and Physical/Consult. Vital Signs Temp Pulse Resp BP Pulse Ox 97.9 F 65 18 131/79 96 06/01/20 23:19 06/01/20 23:19 06/01/20 23:19 06/01/20 23:19 06/01/20 23:19 - General well developed, well nourished, no distress - Eyes normal ocular movement - Neck trachea midline - Respiratory clear to auscultation - Cardiovascular Rhythm: regular - Abdomen Abdomen: soft, tender, bowel sounds Results - Labs 06/02/20 00:13 06/02/20 00:13 Abnormal Lab Results - Last 24 Hours (Table) 06/02/20 06/02/20 06/02/20 Range/Units 00:13 00:13 00:13 WBC 11.7 H (3.8-10.6) k/uL Neutrophils # 10.3 H (1.3-7.7) k/uL Lymphocytes # 0.6 L (1.0-4.8) k/uL Sodium 134 L (137-145) mmol/L BUN 22 H (7-17) mg/dL Glucose 105 H (74-99) mg/dL Urine Appearance Turbid H (Clear) Urine pH 8.5 H (5.0-8.0) Urine Protein Trace H (Negative) Urine Nitrite Positive H (Negative) Ur Leukocyte Esterase Large H (Negative) Urine RBC 9 H (0-5) /hpf Urine WBC 24 H (0-5) /hpf Uric Acid Crystals Moderate H (None) /hpf Urine Bacteria Rare H (None) /hpf Microbiology - Last 24 Hours (Table) 06/02/20 00:13 Urine Culture - Preliminary Urine,Voided Diabetes panel 06/02/20 Range/Units 00:13 Sodium 134 L (137-145) mmol/L Potassium 4.9 (3.5-5.1) mmol/L Chloride 102 (98-107) mmol/L Carbon Dioxide 26 (22-30) mmol/L BUN 22 H (7-17) mg/dL Creatinine 1.00 (0.52-1.04) mg/dL Glucose 105 H (74-99) mg/dL Calcium 9.8 (8.4-10.2) mg/dL AST 22 (14-36) U/L ALT 9 (4-34) U/L Alkaline Phosphatase 109 (38-126) U/L Total Protein 7.0 (6.3-8.2) g/dL Albumin 4.2 (3.5-5.0) g/dL Calcium panel 06/02/20 Range/Units 00:13 Calcium 9.8 (8.4-10.2) mg/dL Albumin 4.2 (3.5-5.0) g/dL Pituitary panel 06/02/20 Range/Units 00:13 Sodium 134 L (137-145) mmol/L Potassium 4.9 (3.5-5.1) mmol/L Chloride 102 (98-107) mmol/L Carbon Dioxide 26 (22-30) mmol/L BUN 22 H (7-17) mg/dL Creatinine 1.00 (0.52-1.04) mg/dL Glucose 105 H (74-99) mg/dL Calcium 9.8 (8.4-10.2) mg/dL Adrenal panel 06/02/20 Range/Units 00:13 Sodium 134 L (137-145) mmol/L Potassium 4.9 (3.5-5.1) mmol/L Chloride 102 (98-107) mmol/L Carbon Dioxide 26 (22-30) mmol/L BUN 22 H (7-17) mg/dL Creatinine 1.00 (0.52-1.04) mg/dL Glucose 105 H (74-99) mg/dL Calcium 9.8 (8.4-10.2) mg/dL Total Bilirubin 0.5 (0.2-1.3) mg/dL AST 22 (14-36) U/L ALT 9 (4-34) U/L Alkaline Phosphatase 109 (38-126) U/L Total Protein 7.0 (6.3-8.2) g/dL Albumin 4.2 (3.5-5.0) g/dL - Imaging CT scan - abdomen: report reviewed, image reviewed Assessment and Plan (1) Abdominal pain Current Visit: Yes Status: Acute Code(s): R10.9 - UNSPECIFIED ABDOMINAL PAIN SNOMED Code(s): 59386749 (2) Nausea & vomiting Current Visit: Yes Status: Acute Code(s): R11.2 - NAUSEA WITH VOMITING, UNSPECIFIED SNOMED Code(s): 50247845 (3) Partial small bowel obstruction Current Visit: Yes Status: Acute Code(s): K56.600 - PARTIAL INTESTINAL OBSTRUCTION, UNSPECIFIED TO CAUSE SNOMED Code(s): 421308911 Plan: The patient's feeling better after pain medication and antibiotic. She's began having flatus. We'll keep her nothing by mouth until this afternoon. If she's having no further nausea or vomiting and doesn't require additional antiemetic, we'll start her on clear liquids this afternoon. Serial exams. This will likely respond nonsurgically. Does also appear she may have a urinary tract infection. Urine culture was sent.
[2020-06-02] MEDS ORDERED: MECLIZINE 25 MG TAB PO PRN (12:20)
[2020-06-02] MEDS ORDERED: ONDANSETRON 4 MG TAB PO PRN (12:20)
[2020-06-02] MEDS ORDERED: traMADol 50 MG TAB PO PRN (13:21)
--- NOTE | 2020-06-02 13:27 | P.HPIM ---
History of Present Illness Patient was on-year-old female came in with the complaints of abdominal pain nausea vomiting abdominal pain vague and diffuse and multiple episodes of nausea vomiting patient had a partial small bowel obstruction multiple times in the past. Patient's abdominal completely resolved at this time patient does have bowel sounds and is passing gas at this time. Patient doesn't have an NG tube. Patient had a CAT scan of the abdomen which showed partial small bowel obstruction and unchanged from previous CAT scan in the mid small bowel area. Patient denies any nausea patient is being started on clear liquid diet at this time and I will be advanced as tolerated. Patient is on Lasix because of chronic venous stasis in bilateral lower extremity edema or lymphedema. Review of Systems REVIEW OF SYSTEMS: CONSTITUTIONAL: No fever, no malaise, no fatigue. HEENT: No recent visual problems or hearing problems. Denied any sore throat. CARDIOVASCULAR: No chest pain, orthopnea, PND, no palpitations, no syncope. PULMONARY: No shortness of breath, no cough, no hemoptysis. GASTROINTESTINAL: As mentioned in HPI NEUROLOGICAL: No headaches, no weakness, no numbness. HEMATOLOGICAL: Denies any bleeding or petechiae. GENITOURINARY: Denies any burning micturition, frequency, or urgency. MUSCULOSKELETAL/RHEUMATOLOGICAL: Denies any joint pain, swelling, or any muscle pain. ENDOCRINE: Denies any polyuria or polydipsia. The rest of the 14-point review of systems is negative. Past Medical History Past Medical History: Atrial Fibrillation, Cancer, GERD/Reflux, Hypertension, Osteoarthritis (OA) Additional Past Medical History / Comment(s): bladder cancer with urostomy, Small Bowel Obstruction, vertigo History of Any Multi-Drug Resistant Organisms: None Reported Past Surgical History: Ablation, Bladder Surgery, Heart Catheterization, Hernia Repair, Hysterectomy, Orthopedic Surgery, Pacemaker, Tonsillectomy Additional Past Surgical History / Comment(s): LEFT HIP SURGERY x 5, GRAFTS AND MARNIE 2016, ablasion CARDIOVERSION, urostomy 10/2010, cataracts 2017 Past Anesthesia/Blood Transfusion Reactions: Previous Problems w/ Anesthesia Additional Past Anesthesia/Blood Transfusion Reaction / Comment(s): asthma attack Type of Cardiac Device: Permanent Pacemaker Device Placement Date:: 2012 Past Psychological History: Anxiety Smoking Status: Former smoker Past Alcohol Use History: None Reported Past Drug Use History: None Reported - Past Family History Mother Family Medical History: Asthma, GERD/Reflux Additional Family Medical History / Comment(s): diverticulitus, glaucoma Father Family Medical History: Hyperlipidemia Additional Family Medical History / Comment(s): stroke, brain tumour Medications and Allergies Home Medications Medication Instructions Recorded Confirmed Type Omeprazole [PriLOSEC] 20 mg PO Q48H 02/05/15 06/02/20 History traMADol HCl [Ultram] 50 mg PO DAILY PRN 02/05/15 06/02/20 History Meclizine [Antivert] 25 mg PO DAILY PRN 09/01/16 06/02/20 History Ondansetron [Zofran] 4 mg PO Q8H PRN 09/01/16 06/02/20 History Potassium Chloride [K-Tab ER] 10 meq PO DAILY 09/01/16 06/02/20 History Metoprolol Tartrate [Lopressor] 25 mg PO BID #60 tab 12/21/16 06/02/20 Rx Aspirin 325 mg PO DAILY 10/15/19 06/02/20 History Furosemide [Lasix] 20 mg PO DAILY 10/15/19 06/02/20 History Melatonin 10 mg PO HS PRN 10/15/19 06/02/20 History Furosemide [Lasix] 40 mg PO HS 06/02/20 06/02/20 History Olmesartan [Benicar] 20 mg PO DAILY 06/02/20 06/02/20 History Propafenone HCl 150 mg PO BID 06/02/20 06/02/20 History Zolpidem [Ambien] 10 mg PO HS PRN 06/02/20 06/02/20 History Allergies Allergy/AdvReac Type Severity Reaction Status Date / Time ether Allergy Anaphylaxis Verified 06/02/20 09:28 tetanus and diphtheria Allergy Unknown Verified 06/02/20 09:28 toxoids [tetanus & diphtheria toxoids] codeine AdvReac Nausea Verified 06/02/20 09:28 Physical Exam Vitals: Vital Signs Temp Pulse Pulse Resp BP BP Pulse Ox 06/02/20 04:10 98.2 F 67 18 138/73 95 06/02/20 03:38 98.4 F 67 16 108/47 96 06/02/20 02:37 98.4 F 64 18 125/60 96 06/02/20 01:30 98.6 F 62 16 130/70 97 06/02/20 00:30 98.5 F 64 18 134/56 97 06/01/20 23:19 97.9 F 65 18 131/79 96 Intake and Output 06/01/20 06/02/20 06/02/20 22:59 06:59 14:59 Intake Total 0 Balance 0 Intake: Oral 0 Other: Weight 78.018 kg PHYSICAL EXAMINATION: GENERAL: The patient is alert and oriented x3, not in any acute distress. Well developed, well nourished. HEENT: Pupils are round and equally reacting to light. EOMI. No scleral icterus. No conjunctival pallor. Normocephalic, atraumatic. No pharyngeal erythema. No thyromegaly. CARDIOVASCULAR: S1 and S2 present. No murmurs, rubs, or gallops. PULMONARY: Chest is clear to auscultation, no wheezing or crackles. ABDOMEN: Soft, nontender, nondistended, normoactive bowel sounds. No palpable organomegaly. MUSCULOSKELETAL: No joint swelling or deformity. EXTREMITIES: No cyanosis, clubbing, bilateral lower extremity pedal edema from chronic venous stasis pitting NEUROLOGICAL: Gross neurological examination did not reveal any focal deficits. SKIN: No rashes. Results CBC & Chem 7: 06/02/20 00:13 06/02/20 00:13 Labs: Abnormal Lab Results - Last 24 Hours (Table) 06/02/20 06/02/20 06/02/20 Range/Units 00:13 00:13 00:13 WBC 11.7 H (3.8-10.6) k/uL Neutrophils # 10.3 H (1.3-7.7) k/uL Lymphocytes # 0.6 L (1.0-4.8) k/uL Sodium 134 L (137-145) mmol/L BUN 22 H (7-17) mg/dL Glucose 105 H (74-99) mg/dL Urine Appearance Turbid H (Clear) Urine pH 8.5 H (5.0-8.0) Urine Protein Trace H (Negative) Urine Nitrite Positive H (Negative) Ur Leukocyte Esterase Large H (Negative) Urine RBC 9 H (0-5) /hpf Urine WBC 24 H (0-5) /hpf Uric Acid Crystals Moderate H (None) /hpf Urine Bacteria Rare H (None) /hpf Microbiology - Last 24 Hours (Table) 06/02/20 00:13 Urine Culture - Preliminary Urine,Voided Thrombosis Risk Factor Assmnt - Choose All That Apply Any of the Below Risk Factors Present?: Yes Each Factor Represents 1 point: Obesity (BMI >25), Swollen legs (current) Other Risk Factors: Yes Each Risk Factor Represents 3 Points: Age 75 years or older Thrombosis Risk Factor Assessment Total Risk Factor Score: 5 Thrombosis Risk Factor Assessment Level: High Risk Assessment and Plan Plan: -Partial small bowel obstruction: Improved with conservative management patient will be started on not clear liquid diet advance as tolerated -Atrial fibrillation presently rate controlled probably probably proximal A. fib not on anticoagulation and rate control medications will be continued -Bladder cancer with urostomy -Chronic venous stasis and pedal edema from chronic venous stasis predominantly in the right leg continue symptomatic treatment with Lasix and the compression socks -Coronary artery disease -Gastroesophageal reflux disease -Hypertension -DVT prophylaxis early ambulation
[2020-06-02 20:34] VITALS: RESP 16
[2020-06-02] MEDS: PROPAFENONE 150 MG TAB PO SCH (20:38)
[2020-06-02] MEDS: METOPROLOL TARTRATE 25 MG TAB PO SCH (20:39)
[2020-06-02] MEDS ORDERED: MELATONIN 5 MG TABLET PO PRN (21:00)
[2020-06-02] MEDS ORDERED: FUROSEMIDE 40 MG TAB PO SCH (21:00)
[2020-06-03 04:40] VITALS: BP 130/65; TEMP 98.1
[2020-06-03] MEDS: METOPROLOL TARTRATE 25 MG TAB PO SCH (08:20)
[2020-06-03] MEDS: PROPAFENONE 150 MG TAB PO SCH (08:21)
[2020-06-03] MEDS ORDERED: ACETAMINOPHEN TAB 325 MG TAB PO PRN (08:24)
[2020-06-03] MEDS ORDERED: PANTOPRAZOLE 40 MG TABLET PO SCH (09:00)
[2020-06-03] MEDS ORDERED: FUROSEMIDE 20 MG TAB PO SCH (09:00)
[2020-06-03] MEDS ORDERED: POTASSIUM CHLORIDE ER 10 MEQ TAB.ER.PRT PO SCH (09:00)
[2020-06-03] MEDS ORDERED: ASPIRIN 325 MG TAB PO SCH (09:00)
[2020-06-03] MEDS ORDERED: LOSARTAN 50 MG TAB PO SCH (09:00)
--- NOTE | 2020-06-03 11:45 | P.PN ---
Subjective Progress Note Date: 06/03/20 Principal diagnosis: Abdominal pain, ileus The patient feels much better today. No nausea or vomiting. Pain is much improved. She's tolerating clear liquids. Wants more to eat. Objective - Vital Signs Vital signs: Vital Signs Temp 98.1 F 06/03/20 04:38 Pulse 61 06/03/20 04:38 Resp 16 06/03/20 04:38 BP 130/65 06/03/20 04:38 Pulse Ox 95 06/03/20 04:38 Intake & Output 06/02/20 06/03/20 06/03/20 18:59 06:59 18:59 Intake Total 1380 1380 Output Total 800 2750 300 Balance 580 -1370 -300 Intake: Intake, IV Titration 900 900 Amount Sodium Chloride 0.9% 1, 900 900 000 ml @ 75 mls/hr IV . [id number] [facility] Rx#:[id number] Oral 480 480 Output: Urine 800 2750 300 - Constitutional General appearance: Present: cooperative, no acute distress - Gastrointestinal General gastrointestinal: Present: normal bowel sounds, soft, tenderness (Minimal mole left lower quadrant) - Labs CBC & Chem 7: 06/02/20 00:13 06/02/20 00:13 Labs: Microbiology - Last 24 Hours (Table) 06/02/20 00:13 Urine Culture - Preliminary Urine,Voided Assessment and Plan (1) Abdominal pain Current Visit: Yes Status: Acute Code(s): R10.9 - UNSPECIFIED ABDOMINAL PAIN SNOMED Code(s): 26545024 (2) Nausea & vomiting Current Visit: Yes Status: Acute Code(s): R11.2 - NAUSEA WITH VOMITING, UNSPECIFIED SNOMED Code(s): 28801159 (3) Partial small bowel obstruction Current Visit: Yes Status: Acute Code(s): K56.600 - PARTIAL INTESTINAL OBSTRUCTION, UNSPECIFIED TO CAUSE SNOMED Code(s): 168777525 Plan: Patient is clinically improving. We'll advance her diet. Follow up as needed. Surgically stable for discharge if she tolerates a diet
[2020-06-03 12:28] VITALS: PULSE 60
--- NOTE | 2020-06-03 13:28 | P.DS ---
Providers Date of admission: 06/02/20 03:08 Attending physician: Rao Garduno Consults: 06/02/20 02:05 Consult Physician Stat Consulting Provider: Cyndy Melo Consult Reason/Comments: Partial small bowel obstruction, abdominal pain, nausea or vomiting Do you want consulting provider notified?: Yes Primary care physician: Krystal Yanes [facility] Course: Patient was on-year-old female came in with the complaints of abdominal pain nausea vomiting abdominal pain vague and diffuse and multiple episodes of nausea vomiting patient had a partial small bowel obstruction multiple times in the past. Patient's abdominal completely resolved at this time patient does have bowel sounds and is passing gas at this time. Patient doesn't have an NG tube. Patient had a CAT scan of the abdomen which showed partial small bowel obstruction and unchanged from previous CAT scan in the mid small bowel area. Patient denies any nausea patient is being started on clear liquid diet at this time and I will be advanced as tolerated. Patient is on Lasix because of chronic venous stasis in bilateral lower extremity edema or lymphedema. 06/03/2020 Patient is feeling much better dated is passing gas did not move her bowel yet patient is cleared by neurosurgery to be discharged and patient will be discharged today. No nausea no abdominal pain no vomiting. PHYSICAL EXAMINATION: GENERAL: The patient is alert and oriented x3, not in any acute distress. Well developed, well nourished. HEENT: Pupils are round and equally reacting to light. EOMI. No scleral icterus. No conjunctival pallor. Normocephalic, atraumatic. No pharyngeal erythema. No thyromegaly. CARDIOVASCULAR: S1 and S2 present. No murmurs, rubs, or gallops. PULMONARY: Chest is clear to auscultation, no wheezing or crackles. ABDOMEN: Soft, nontender, nondistended, normoactive bowel sounds. No palpable organomegaly. MUSCULOSKELETAL: No joint swelling or deformity. EXTREMITIES: No cyanosis, clubbing, bilateral lower extremity pedal edema from chronic venous stasis pitting NEUROLOGICAL: Gross neurological examination did not reveal any focal deficits. SKIN: No rashes. Assessment and Plan Plan: -Partial small bowel obstruction: Improved with conservative managementPatient is tolerating soft diet will be discharged today -Atrial fibrillation presently rate controlled probably probably proximal A. fib not on anticoagulation and rate control medications will be continued -Bladder cancer with urostomy -Chronic venous stasis and pedal edema from chronic venous stasis predominantly in the right leg continue symptomatic treatment with Lasix and the compression socks -Coronary artery disease -Gastroesophageal reflux disease -Hypertension Patient Condition at Discharge: Good Plan - Discharge Summary Discharge Rx Participant: No New Discharge Prescriptions: Continue traMADol HCl [Ultram] 50 mg PO DAILY PRN PRN Reason: Pain Omeprazole [PriLOSEC] 20 mg PO Q48H Potassium Chloride [K-Tab ER] 10 meq PO DAILY Meclizine [Antivert] 25 mg PO DAILY PRN PRN Reason: Vertigo Ondansetron [Zofran] 4 mg PO Q8H PRN PRN Reason: Nausea Metoprolol Tartrate [Lopressor] 25 mg PO BID #60 tab Aspirin 325 mg PO DAILY Furosemide [Lasix] 20 mg PO DAILY Melatonin 10 mg PO HS PRN PRN Reason: SLEEP Furosemide [Lasix] 40 mg PO HS Zolpidem [Ambien] 10 mg PO HS PRN PRN Reason: Insomnia Olmesartan [Benicar] 20 mg PO DAILY Propafenone HCl 150 mg PO BID Discharge Medication List Omeprazole [PriLOSEC] 20 mg PO Q48H 02/05/15 [History] traMADol HCl [Ultram] 50 mg PO DAILY PRN 02/05/15 [History] Meclizine [Antivert] 25 mg PO DAILY PRN 09/01/16 [History] Ondansetron [Zofran] 4 mg PO Q8H PRN 09/01/16 [History] Potassium Chloride [K-Tab ER] 10 meq PO DAILY 09/01/16 [History] Metoprolol Tartrate [Lopressor] 25 mg PO BID #60 tab 12/21/16 [Rx] Aspirin 325 mg PO DAILY 10/15/19 [History] Furosemide [Lasix] 20 mg PO DAILY 10/15/19 [History] Melatonin 10 mg PO HS PRN 10/15/19 [History] Furosemide [Lasix] 40 mg PO HS 06/02/20 [History] Olmesartan [Benicar] 20 mg PO DAILY 06/02/20 [History] Propafenone HCl 150 mg PO BID 06/02/20 [History] Zolpidem [Ambien] 10 mg PO HS PRN 06/02/20 [History] Follow up Appointment(s)/Referral(s): Nita Rice MD [Primary Care Provider] - 1-2 days (Please call the office on Thursday06/04/20 to schedule your appointment. The office was closed at time of discharge.) Patient Instructions/Handouts: Abdominal Pain (ED) Discharge Disposition: HOME SELF-CARE
== END 2020-06-03 14:55 | disposition home or self-care (01) | DRG 389 ==
LOC: EC 23:18 → 5NMEDONC 06-02 03:08
PROVIDERS: ADMIT Hospitalist; ATTEND Hospitalist
DX: K56.690 Other partial intestinal obstruction (principal); N39.0 Urinary tract infection, site not specified; K21.9 Gastro-esophageal reflux disease without esophagitis; M19.90 Unspecified osteoarthritis, unspecified site; F41.9 Anxiety disorder, unspecified; F32.9 Major depressive disorder, single episode, unspecified; I87.8 Other specified disorders of veins; I89.0 Lymphedema, not elsewhere classified; I10 Essential (primary) hypertension; I25.10 Atherosclerotic heart disease of native coronary artery without angina pectoris; R60.0 Localized edema; C67.9 Malignant neoplasm of bladder, unspecified; I48.0 Paroxysmal atrial fibrillation; J45.909 Unspecified asthma, uncomplicated; Z79.82 Long term (current) use of aspirin; Z79.899 Other long term (current) drug therapy; Z88.5 Allergy status to narcotic agent; Z88.7 Allergy status to serum and vaccine; Z88.8 Allergy status to other drugs, medicaments and biological substances; Z90.710 Acquired absence of both cervix and uterus; Z95.0 Presence of cardiac pacemaker; Z90.89 Acquired absence of other organs; Z98.890 Other specified postprocedural states; Z98.41 Cataract extraction status, right eye; Z98.42 Cataract extraction status, left eye; Z93.6 Other artificial openings of urinary tract status; Z82.5 Family history of asthma and other chronic lower respiratory diseases; Z82.3 Family history of stroke; Z83.438 Family history of other disorder of lipoprotein metabolism and other lipidemia; Z83.79 Family history of other diseases of the digestive system; Z87.891 Personal history of nicotine dependence
CPT/HCPCS: 36415; 74177; 80053; 81001; 83690; 85025; 87077; 87086; 87186; 96361; 96374; 96375; 99285

== ENCOUNTER 2020-06-24 09:21 | Emergency (ER) | payer MEDICARE, OTHER ==
[2020-06-24 09:25] VITALS: BP 139/83; PULSE 71; RESP 18; TEMP 97.9
--- NOTE | 2020-06-24 09:37 | ED ---
Lower Extremity Injury HPI - General Chief Complaint: Extremity Injury, Lower Stated Complaint: Knee injury Time Seen by Provider: 06/24/20 09:27 Source: patient Mode of arrival: wheelchair Limitations: no limitations - History of Present Illness Initial Comments: Patient is a 74-year-old female presenting to emergency Department with complaints of pain in her left kneecap. Patient states she is disabled and normally uses crutches or wheelchair to get around. Patient states she was using an electric cart at a [employer] when the basket came down on her left knee. She states the pain was severe at that time, it made her nauseous. Patient states today her kneecap feels numb but there is little pain. She is worried the bone is fractured. Patient states she has had multiple surgeries on her left hip, left femur but no surgeries of her knee. She denies any recent fever or chills. She has no further complaints at this time. - Related Data Home Medications Medication Instructions Recorded Confirmed Omeprazole [PriLOSEC] 20 mg PO Q48H 02/05/15 06/02/20 traMADol HCl [Ultram] 50 mg PO DAILY PRN 02/05/15 06/02/20 Meclizine [Antivert] 25 mg PO DAILY PRN 09/01/16 06/02/20 Ondansetron [Zofran] 4 mg PO Q8H PRN 09/01/16 06/02/20 Potassium Chloride [K-Tab ER] 10 meq PO DAILY 09/01/16 06/02/20 Aspirin 325 mg PO DAILY 10/15/19 06/02/20 Furosemide [Lasix] 20 mg PO DAILY 10/15/19 06/02/20 Melatonin 10 mg PO HS PRN 10/15/19 06/02/20 Furosemide [Lasix] 40 mg PO HS 06/02/20 06/02/20 Olmesartan [Benicar] 20 mg PO DAILY 06/02/20 06/02/20 Propafenone HCl 150 mg PO BID 06/02/20 06/02/20 Zolpidem [Ambien] 10 mg PO HS PRN 06/02/20 06/02/20 Previous Rx's Medication Instructions Recorded Metoprolol Tartrate [Lopressor] 25 mg PO BID #60 tab 12/21/16 Allergies Allergy/AdvReac Type Severity Reaction Status Date / Time ether Allergy Anaphylaxis Verified 08/22/20 09:28 tetanus and diphtheria Allergy Unknown Verified 06/02/20 09:28 toxoids [tetanus & diphtheria toxoids] codeine AdvReac Nausea Verified 06/02/20 09:28 Review of Systems ROS Statement: Those systems with pertinent positive or pertinent negative responses have been documented in the HPI. ROS Other: All systems not noted in ROS Statement are negative. Past Medical History Past Medical History: Atrial Fibrillation, Cancer, GERD/Reflux, Hypertension, Osteoarthritis (OA) Additional Past Medical History / Comment(s): bladder cancer with urostomy, Small Bowel Obstruction, vertigo History of Any Multi-Drug Resistant Organisms: None Reported Past Surgical History: Ablation, Bladder Surgery, Heart Catheterization, Hernia Repair, Hysterectomy, Orthopedic Surgery, Pacemaker, Tonsillectomy Additional Past Surgical History / Comment(s): LEFT HIP SURGERY x 5, GRAFTS AND MARNIE 2015, ablasion CARDIOVERSION, urostomy 10/2010, cataracts 2017 Past Anesthesia/Blood Transfusion Reactions: Previous Problems w/ Anesthesia Additional Past Anesthesia/Blood Transfusion Reaction / Comment(s): asthma attack Type of Cardiac Device: Permanent Pacemaker Device Placement Date:: 2012 Past Psychological History: Anxiety Smoking Status: Former smoker Past Alcohol Use History: Occasional Past Drug Use History: None Reported - Past Family History Mother Family Medical History: Asthma, GERD/Reflux Additional Family Medical History / Comment(s): diverticulitus, glaucoma Father Family Medical History: Hyperlipidemia Additional Family Medical History / Comment(s): stroke, brain tumour General Exam - General Exam Comments Initial Comments: GENERAL: Patient is well-developed and well-nourished. Patient is nontoxic and in no acute distress. HEAD: Atraumatic, normocephalic. EYES: Pupils equal round and reactive to light, extraocular movements intact, sclera anicteric, conjunctiva are normal. Eyelids were unremarkable. ENT: TMs normal, nares patent, oropharynx clear without exudates. Moist mucous membranes. NECK: Normal range of motion, supple without lymphadenopathy or JVD. LUNGS: Unlabored respirations. Breath sounds clear to auscultation bilaterally and equal. No wheezes rales or rhonchi. HEART: Regular rate and rhythm without murmurs, rubs or gallops. ABDOMEN: Soft, nontender, normoactive bowel sounds. No guarding, no rebound. No masses appreciated. : Deferred MUSCULOSKELETAL: Patient has very minimal pain with palpation of the left kneecap, patient has f ull extension, flexion is limited but states this is her baseline. She is neurovascular intact. No significant swelling. No clubbing or cyanosis. NEUROLOGICAL: Patient is alert and oriented x 3. Motor and sensory are also intact. Normal speech. PSYCH: Normal mood, normal affect. SKIN: Warm, Dry, normal turgor, no rashes or lesions noted. Limitations: no limitations Course Vital Signs 06/24/20 09:22 Temperature 97.9 F Pulse Rate 71 Respiratory 18 Rate Blood Pressure 139/83 O2 Sat by Pulse 98 Oximetry Medical Decision Making - Medical Decision Making Patient is a 74-year-old female presenting with pain over her left kneecap after a basket fell on it yesterday. X-rays revealed diffuse osteopenia, postsurgical changes, no acute fractures. I discussed with patient this is most likely a contusion to her knee. Recommended ice, Motrin for her pain. If symptoms persist, she can follow up with her orthopedic surgeon. She is in agreement this plan of care, she is stable for discharge. Disposition Clinical Impression: Contusion of left knee Disposition: HOME SELF-CARE Condition: Stable Instructions (If sedation given, give patient instructions): Knee Pain (ED) Additional Instructions: Please return to the Emergency Department if symptoms worsen or any other con cerns. Use ice to the area , ibuprofen for discomfort. Follow up with orthopedic surgeon if symptoms persist. Is patient prescribed a controlled substance at d/c from ED?: No Referrals: Nita Rice MD [Primary Care Provider] - 1-2 days
--- NOTE | 2020-06-24 10:02 | XR ---
EXAMINATION TYPE: XR knee complete LT DATE OF EXAM: 06/24/2020 COMPARISON: 08/19/2017 HISTORY: Pain TECHNIQUE: Three views are submitted. FINDINGS: Postsurgical change is severe diffuse osteopenia. Arthropathy of the joint spaces. No acute fracture or dislocation. IMPRESSION: 1. Diffuse osteopenia, postsurgical change and arthropathy with no acute fracture.
== END 2020-06-24 10:14 | disposition home or self-care (01) ==
LOC: EC 09:21
DX: S80.02XA Contusion of left knee, initial encounter (principal); M85.862 Other specified disorders of bone density and structure, left lower leg; I48.91 Unspecified atrial fibrillation; K21.9 Gastro-esophageal reflux disease without esophagitis; I10 Essential (primary) hypertension; M19.90 Unspecified osteoarthritis, unspecified site; F41.9 Anxiety disorder, unspecified; Z79.82 Long term (current) use of aspirin; Z79.899 Other long term (current) drug therapy; Z88.5 Allergy status to narcotic agent; Z88.7 Allergy status to serum and vaccine; Z91.048 Other nonmedicinal substance allergy status; Z87.891 Personal history of nicotine dependence; Z85.51 Personal history of malignant neoplasm of bladder; Z95.0 Presence of cardiac pacemaker; Z87.19 Personal history of other diseases of the digestive system; Z95.5 Presence of coronary angioplasty implant and graft; Z98.890 Other specified postprocedural states; W20.8XXA Other cause of strike by thrown, projected or falling object, initial encounter
CPT/HCPCS: 99283

== ENCOUNTER 2021-04-25 22:26 | Inpatient (IN) | payer MEDICARE, OTHER ==
[2021-04-25] MEDS ORDERED: ONDANSETRON 4 MG/2 ML VIAL IVP STA (22:54)
[2021-04-25] MEDS ORDERED: HYDROmorphone 1 MG/ML 1 ML SYRINGE IVP STA (22:54)
[2021-04-25] MEDS ORDERED: SODIUM CHLORIDE 0.9% 1,000 ML IV STA (22:55)
[2021-04-25 23:12] LABS: Basophils % (A) 1 %; Eosinophils # (A) 0.2 k/uL (0-0.7); Eosinophils % (A) 3 %; HGB 12.5 gm/dL (11.4-16.0); Lymphocytes # (A) 1.2 k/uL (1.0-4.8); Lymphocytes % (A) 14 %; MCH 27.8 pg (25.0-35.0); MCHC 33.8 g/dL (31.0-37.0); MCV 82.3 fL (80.0-100.0); Mean Platelet Volume 7.9; Monocytes # (A) 0.6 k/uL (0-1.0); Monocytes % (A) 7 %; Neutrophils # (A) 6.4 k/uL (1.3-7.7); Neutrophils % (A) 75 %; Platelet Count 252 k/uL (150-450); RBC 4.49 m/uL (3.80-5.40); WBC 8.6 k/uL (3.8-10.6)
--- NOTE | 2021-04-25 23:15 | XR ---
EXAMINATION TYPE: XR KUB DATE OF EXAM: 04/25/2021 COMPARISON: 10/24/2018 HISTORY: Abdominal pain TECHNIQUE: 2 views upright FINDINGS: There are a few small bowel air-fluid levels. There is no sign of pneumoperitoneum. Lung ba ses are clear. There is moderate hiatal hernia. Fecal pattern is fairly normal. There is left hip pro sthesis. There is deformity of the right hip with significant deformity of the femoral neck. There is old femoral neck subcapital fracture with impaction. There is shallow acetabulum. The pelvic ring ap pears intact. There is mild thoracolumbar levoscoliosis. IMPRESSION: There are some small bowel fluid levels that could relate to some mild ileus. I do not byers spect a mechanical bowel obstruction. This appears new compared to old exam. Bony changes of the pelv is appear stable compared to old exam.
[2021-04-25 23:27] LABS: INR 0.9 (<1.2); Prothrombin Time 9.6 sec (9.0-12.0)
[2021-04-25 23:28] LABS: Albumin 4.2 g/dL (3.5-5.0); Calcium 10.1 mg/dL (8.4-10.2); Potassium 4.8 mmol/L (3.5-5.1); Total Bilirubin 0.4 mg/dL (0.2-1.3)
[2021-04-25 23:34] LABS: Partial Thromboplastin Time 21.9 sec (22.0-30.0)
[2021-04-25 23:37] LABS: Appearance,Urine Cloudy (Clear); Bacteria,Urine Moderate /hpf; Bilirubin,Urine Negative (Negative); Blood,Urine Trace (Negative); Color,Urine Yellow; Glucose,Urine (UA) Negative (Negative); Ketones,Urine Negative (Negative); Leukocyte Esterase,Urine Large (Negative); Mucus,Urine Rare /hpf; Nitrite,Urine Positive (Negative); Protein,Urine 1+ (Negative); RBC,Urine 14 /hpf (0-5); Specific Gravity,Urine 1.018 (1.001-1.035); Squamous Epithelial Cell,Urine 1 /hpf (0-4); Triple Phosphate Crystal,Urine Many /hpf; Urobilinogen,Urine <2.0 mg/dL (<2.0); WBC,Urine 51 /hpf (0-5)
--- NOTE | 2021-04-25 23:52 | ED ---
Abdominal Pain HPI - General Source: patient, EMS Mode of arrival: EMS Limitations: no limitations <Glenn France - Last Filed: 04/25/21 23:56> <Abhishek Cornejo - Last Filed: 04/26/21 00:39> - General Chief Complaint: Abdominal Pain Stated Complaint: Abdominal pain Time Seen by Provider: 04/25/21 22:40 - History of Present Illness Initial Comments: 75 -year-old female with history of small bowel obstruction, urostomy secondary to bladder cancer presents to emergency Department with a chief complaint of abdominal pain nausea vomiting. Patient reports the pain started several hours prior to arrival and associated with nausea and multiple episodes number is not bloody vomiting. Patient reports the pain is sharp and feels like her typical small bowel obstruction. She reports her last bowel movement was in the morning. She still able to pass gas. She denies any chest and back pain and shortness of breath. She does have history of recurrent UTIs. (Glenn France) - Related Data Home Medications Medication Instructions Recorded Confirmed Omeprazole [PriLOSEC] 20 mg PO DAILY PRN 02/05/15 04/25/21 traMADol HCl [Ultram] 50 mg PO DAILY PRN 02/05/15 04/25/21 Meclizine [Antivert] 25 mg PO DAILY PRN 09/01/16 04/25/21 Ondansetron [Zofran] 4 mg PO BID PRN 09/01/16 04/25/21 Potassium Chloride [K-Tab ER] 10 meq PO DAILY 09/01/16 04/25/21 Furosemide [Lasix] 20 mg PO DAILY 10/15/19 04/25/21 Melatonin 10 mg PO HS PRN 10/15/19 04/25/21 Furosemide [Lasix] 40 mg PO HS 06/02/20 04/25/21 Propafenone HCl 150 mg PO BID 06/02/20 04/25/21 Zolpidem [Ambien] 10 mg PO HS PRN 06/02/20 04/25/21 Aspirin EC [Ecotrin] 325 mg PO DAILY 04/25/21 04/25/21 Ferrous Sulfate [Feosol] 325 mg PO Q48H 04/25/21 04/25/21 Ibuprofen [Motrin] 800 mg PO BID PRN 04/25/21 04/25/21 Magnesium 250 mg PO BID 04/25/21 04/25/21 Previous Rx's Medication Instructions Recorded Metoprolol Tartrate [Lopressor] 25 mg PO BID #60 tab 12/21/16 Allergies Allergy/AdvReac Type Severity Reaction Status Date / Time ether Allergy Anaphylaxis Verified 04/25/21 23:33 formaldehyde Allergy Anaphylaxis Verified 04/25/21 23:33 tetanus and diphtheria Allergy Unknown Verified 04/25/21 23:33 toxoids [tetanus & diphtheria toxoids] codeine AdvReac Nausea Verified 04/25/21 23:33 Review of Systems ROS Other: All systems not noted in ROS Statement are negative. <Glenn France - Last Filed: 04/25/21 23:56> ROS Other: All systems not noted in ROS Statement are negative. <Abhishek Cornejo - Last Filed: 04/26/21 00:39> ROS Statement: Those systems with pertinent positive or pertinent negative responses have been documented in the HPI. Past Medical History Past Medical History: Atrial Fibrillation, Cancer, GERD/Reflux, Hypertension, Osteoarthritis (OA) Additional Past Medical History / Comment(s): bladder cancer with urostomy, Small Bowel Obstruction, vertigo History of Any Multi-Drug Resistant Organisms: None Reported Past Surgical History: Ablation, Bladder Surgery, Heart Catheterization, Hernia Repair, Hysterectomy, Orthopedic Surgery, Pacemaker, Tonsillectomy Additional Past Surgical History / Comment(s): LEFT HIP SURGERY x 5, GRAFTS AND MARNIE 2015, ablasion CARDIOVERSION, urostomy 10/2010, cataracts 2017 Past Anesthesia/Blood Transfusion Reactions: Previous Problems w/ Anesthesia Additional Past Anesthesia/Blood Transfusion Reaction / Comment(s): asthma attack Type of Cardiac Device: Permanent Pacemaker Device Placement Date:: 2012 Past Psychological History: Anxiety Smoking Status: Former smoker Past Alcohol Use History: Occasional Past Drug Use History: None Reported - Past Family History Mother Family Medical History: Asthma, GERD/Reflux Additional Family Medical History / Comment(s): diverticulitus, glaucoma Father Family Medical History: Hyperlipidemia Additional Family Medical History / Comment(s): stroke, brain tumour <Glenn France - Last Filed: 04/25/21 23:56> General Exam Limitations: no limitations General appearance: alert, in no apparent distress Head exam: Present: atraumatic, normocephalic, normal inspection Eye exam: Present: normal appearance, PERRL, EOMI Pupils: Present: normal accommodation ENT exam: Present: normal exam, normal oropharynx, mucous membranes moist Neck exam: Present: normal inspection, full ROM. Absent: tenderness, lymphadenopathy Respiratory exam: Present: normal lung sounds bilaterally. Absent: respiratory distress Cardiovascular Exam: Present: regular rate, normal rhythm, normal heart sounds. Absent: systolic murmur GI/Abdominal exam: Present: soft, tenderness (Periumbilical epigastric tenderne ss). Absent: distended, guarding, rebound, rigid Extremities exam: Present: normal inspection, full ROM, normal capillary refill. Absent: tenderness, pedal edema, joint swelling Back exam: Present: normal inspection, full ROM. Absent: tenderness, CVA tenderness (R), CVA tenderness (L) Neurological exam: Present: alert, oriented X3 Psychiatric exam: Present: normal affect, normal mood Skin exam: Present: warm, dry, intact, normal color <Glenn France - Last Filed: 04/25/21 23:56> Course Vital Signs 04/25/21 04/25/21 22:32 23:15 Temperature 97.6 F Pulse Rate 82 63 Respiratory 18 20 Rate Blood Pressure 150/89 141/81 O2 Sat by Pulse 97 95 Oximetry Medical Decision Making - Lab Data Result diagrams: 04/25/21 22:59 04/25/21 22:59 <Glenn France - Last Filed: 04/25/21 23:56> - Lab Data Result diagrams: 04/25/21 22:59 04/25/21 22:59 <Abhishek Cornejo - Last Filed: 04/26/21 00:39> - Medical Decision Making 75 -year-old female with history of small bowel obstruction, urostomy secondary to bladder cancer presents to emergency Department with a chief complaint of a bdominal pain nausea vomiting. A physical examination, epigastric parable abdominal tenderness. Patient was given IV fluids, antiemetics and analgesia. KUB shows small bowel fluid levels that could relate to a mild ileus. Low suspicion for mechanical bowel obstruction. This appears to be new compared to old exam. CT abdomen and pelvis is pending. This was performed without contrast due to decreased renal function. UA positive for urinary checked infection with elevated nitrates, or blood cells and leukocyte esterase. Urine culture is pending. Patient was given 1 g Rocephin and will be prescription with Macrobid. At this time, patient care signed off to BETH Starks. (Glenn France) Kendall Santos consulted and will accept the admit for Dr. Garduno with general surgery on consult for partial small bowel obstruction. Case discussed with Dr. Brown. (Abhishek Cornejo) - Lab Data Lab Results 04/25/21 04/25/21 04/25/21 Range/Units 22:59 22:59 22:59 WBC 8.6 (3.8-10.6) k/uL RBC 4.49 (3.80-5.40) m/uL Hgb 12.5 (11.4-16.0) gm/dL Hct 37.0 (34.0-46.0) % MCV 82.3 (80.0-100.0) fL MCH 27.8 (25.0-35.0) pg MCHC 33.8 (31.0-37.0) g/dL RDW 14.0 (11.5-15.5) % Plt Count 252 (150-450) k/uL MPV 7.9 Neutrophils % 75 % Lymphocytes % 14 % Monocytes % 7 % Eosinophils % 3 % Basophils % 1 % Neutrophils # 6.4 (1.3-7.7) k/uL Lymphocytes # 1.2 (1.0-4.8) k/uL Monocytes # 0.6 (0-1.0) k/uL Eosinophils # 0.2 (0-0.7) k/uL Basophils # 0.0 (0-0.2) k/uL PT 9.6 (9.0-12.0) sec INR 0.9 (<1.2) APTT 21.9 L (22.0-30.0) sec Sodium (137-145) mmol/L Potassium (3.5-5.1) mmol/L Chloride (98-107) mmol/L Carbon Dioxide (22-30) mmol/L Anion Gap mmol/L BUN (7-17) mg/dL Creatinine (0.52-1.04) mg/dL Est GFR (CKD-EPI)AfAm (>60 ml/min/1.73 sqM) Est GFR (CKD-EPI)NonAf (>60 ml/min/1.73 sqM) Glucose (74-99) mg/dL Plasma Lactic Acid Aidan (0.7-2.0) mmol/L Calcium (8.4-10.2) mg/dL Total Bilirubin (0.2-1.3) mg/dL AST (14-36) U/L ALT (4-34) U/L Alkaline Phosphatase (38-126) U/L Troponin I (0.000-0.034) ng/mL Total Protein (6.3-8.2) g/dL Albumin (3.5-5.0) g/dL Amylase (30-110) U/L Lipase (23-300) U/L Urine Color Yellow Urine Appearance Cloudy H (Clear) Urine pH 8.0 (5.0-8.0) Ur Specific [place] 1.018 (1.001-1.035) Urine Protein 1+ H (Negative) Urine Glucose (UA) Negative (Negative) Urine Ketones Negative (Negative) Urine Blood Trace H (Negative) Urine Nitrite Positive H (Negative) Urine Bilirubin Negative (Negative) Urine Urobilinogen <2.0 (<2.0) mg/dL Ur Leukocyte Esterase Large H (Negative) Urine RBC 14 H (0-5) /hpf Urine WBC 51 H (0-5) /hpf Ur Squamous Epith Cells 1 (0-4) /hpf Triple Phos Crystals Many H (None) /hpf Urine Bacteria Moderate H (None) /hpf Urine Mucus Rare H (None) /hpf 04/25/21 04/25/21 04/25/21 Range/Units 22:59 22:59 22:59 WBC (3.8-10.6) k/uL RBC (3.80-5.40) m/uL Hgb (11.4-16.0) gm/dL Hct (34.0-46.0) % MCV (80.0-100.0) fL MCH (25.0-35.0) pg MCHC (31.0-37.0) g/dL RDW (11.5-15.5) % Plt Count (150-450) k/uL MPV Neutrophils % % Lymphocytes % % Monocytes % % Eosinophils % % Basophils % % Neutrophils # (1.3-7.7) k/uL Lymphocytes # (1.0-4.8) k/uL Monocytes # (0-1.0) k/uL Eosinophils # (0-0.7) k/uL Basophils # (0-0.2) k/uL PT (9.0-12.0) sec INR (<1.2) APTT (22.0-30.0) sec Sodium 137 (137-145) mmol/L Potassium 4.8 (3.5-5.1) mmol/L Chloride 105 (98-107) mmol/L Carbon Dioxide 22 (22-30) mmol/L Anion Gap 10 mmol/L BUN 31 H (7-17) mg/dL Creatinine 1.33 H (0.52-1.04) mg/dL Est GFR (CKD-EPI)AfAm 45 (>60 ml/min/1.73 sqM) Est GFR (CKD-EPI)NonAf 39 (>60 ml/min/1.73 sqM) Glucose 115 H (74-99) mg/dL Plasma Lactic Acid Aidan 1.3 (0.7-2.0) mmol/L Calcium 10.1 (8.4-10.2) mg/dL Total Bilirubin 0.4 (0.2-1.3) mg/dL AST 22 (14-36) U/L ALT 13 (4-34) U/L Alkaline Phosphatase 119 (38-126) U/L Troponin I <0.012 (0.000-0.034) ng/mL Total Protein 7.0 (6.3-8.2) g/dL Albumin 4.2 (3.5-5.0) g/dL Amylase 78 (30-110) U/L Lipase 210 (23-300) U/L Urine Color Urine Appearance (Clear) Urine pH (5.0-8.0) Ur Specific [place] (1.001-1.035) Urine Protein (Negative) Urine Glucose (UA) (Negative) Urine Ketones (Negative) Urine Blood (Negative) Urine Nitrite (Negative) Urine Bilirubin (Negative) Urine Urobilinogen (<2.0) mg/dL Ur Leukocyte Esterase (Negative) Urine RBC (0-5) /hpf Urine WBC (0-5) /hpf Ur Squamous Epith Cells (0-4) /hpf Triple Phos Crystals (None) /hpf Urine Bacteria (None) /hpf Urine Mucus (None) /hpf Disposition <Glenn France - Last Filed: 04/25/21 23:56> Time of Disposition: 00:39 <Abhishek Cornejo - Last Filed: 04/26/21 00:39> Clinical Impression: Small bowel obstruction Disposition: ADMITTED IP TO THIS HOSP Condition: Stable Referrals: Nita Rice MD [Primary Care Provider] - 1-2 days
[2021-04-25] MEDS ORDERED: cefTRIAXone IN SWFI 1,000 MG/10 ML SYRINGE IVP STA (23:56)
[2021-04-25] MEDS ORDERED: NITROFURANTOIN MONOHYD/M-CRYST 100 MG CAP PO STA (23:56)
--- NOTE | 2021-04-26 00:07 | CT ---
EXAMINATION TYPE: CT abdomen pelvis wo con DATE OF EXAM: 04/25/2021 COMPARISON: 06/02/2020 HISTORY: epigastric, concern for sbo, poor renal fxn CT DLP: 870.8 mGycm Automated exposure control for dose reduction was used. Images obtained from the diaphragm to the floor the pelvis with no contrast. There is large hiatal hernia. Lung bases are clear of infiltrate. Heart size is fairly normal. There is no pericardial effusion. Liver spleen pancreas gallbladder appear intact. The bile ducts are not d ilated. Stomach is intact. There is 2.5 cm left adrenal mass. Unchanged. There is significant cortical thinning of the right kidney. There is mild right-sided hydronephrosis and hydroureter. The left kidney has normal size. There is some fullness of the left renal pelvis. Le ft ureter does not appear dilated. There is a cystectomy. There is ileal conduit noted in the right m id abdomen. There is no retroperitoneal adenopathy. There is no free fluid in the abdomen. There are sigmoid dive rticula. I see no sign of diverticulitis. There is some distended loops of fluid-filled small bowel i n the mid abdomen. Small bowel measures up to 3 cm. There is deformity of the right hip subcapital fracture of the right femur. There is shallow acetabul um and hip deformity. There is left hip prosthesis. I see no evidence of an acute fracture. The pelvi c ring appears intact. The lumbar vertebra have normal alignment. Disc spaces are fairly normal. There is no compression fra cture. Abdominal aorta is atheromatous. There is no mesenteric edema. IMPRESSION: There is some distended small bowel loops with fluid levels suggestive of partial obstruction or smal l bowel ileus. Distention is increased slightly compared to old exam. Large hiatal hernia increased s lightly compared to old exam. There is significant right renal cortical thinning. Mild right-sided hydronephrosis increased slightl y compared to old exam. Left kidney unchanged.
[2021-04-26] MEDS ORDERED: NALOXONE 0.4 MG/ML 1 ML VIAL IV PRN (00:36)
[2021-04-26] MEDS ORDERED: HYDROmorphone 1 MG/ML 1 ML SYRINGE IVP PRN (00:36)
[2021-04-26] MEDS ORDERED: ONDANSETRON 4 MG/2 ML VIAL IVP PRN (00:36)
[2021-04-26] MEDS: SODIUM CHLORIDE 0.9% 1,000 ML IV SCH ×3 (00:47→23:16)
--- NOTE | 2021-04-26 10:59 | P.GSCN ---
<Heather Zaldivar - Last Filed: 04/26/21 10:50> History of Present Illness Consult date: 04/26/21 History of present illness: CHIEF COMPLAINT: Abdominal pain HISTORY OF PRESENT ILLNESS: This is a 75-year-old female with a history of multiple small bowel obstructions that were treated conservatively, urostomy secondary to bladder cancer, atrial fibrillation and pacemaker placement. Patient presents to the hospital with complaints of abdominal pain in mid abdomen near her surgical scar. She reports vomiting once yesterday. She her last bowel movement was yesterday morning. She describes the pain as crampy and intermittent. This is the same pain she has had with previous bowel obstruct ions. She had a computed tomography scan of the abdomen and pelvis that showed distended small bowel loops with fluid level suggestive of partial obstruction or small bowel ileus. Distention is increased slightly compared to old exam. Large hiatal hernia increased slightly compared to old exam. Patient reports that her abdominal distention is slightly decreased than yesterday. She denies any fever chills or sweats. PAST MEDICAL HISTORY: See list. PAST SURGICAL HISTORY: See list. MEDICATIONS: See list. ALLERGIES: See list. SOCIAL HISTORY: No illicit drug use. REVIEW OF SYSTEMS: CONSTITUTIONAL: Denies fever or chills. HEENT: Denies blurred vision, vision changes, or eye pain. Denies hemoptysis CARDIOVASCULAR: Denies chest pain or pressure. RESPIRATORY: No shortness of breath. GASTROINTESTINAL: See HPI for pertinent findings HEMATOLOGIC: Denies bleeding disorders. GENITOURINARY: Denies any blood in urine or increased urinary frequency. SKIN: Denies pruitis. Denies rash. PHYSICAL EXAM: VITAL SIGNS: Reviewed GENERAL: Well-developed in no acute distress. HEENT: No sclera icterus. Extraocular movements grossly intact. Moist buccal mucosa. Head is atraumatic, normocephalic. No nasal drainage. ABDOMEN: Soft. Mildly distended. Tenderness with palpation along the mid abdomen incision site. Old incision site healed. Urostomy bag on the right side of the abdomen NEUROLOGIC: Alert and oriented. Cranial nerves II through XII grossly intact. LABORATORY DATA: WBC 8.6 hematoma is 12.5 platelets 252 sodium 137 potassium is 4.8 creatinine 1.33 lactic 1.3 LFTs normal lipase 210 Urinalysis positive for UTI IMAGING: computed tomography scan of the abdomen and pelvis that showed distended small bowel loops with fluid level suggestive of partial obstruction or small bowel ileus. Distention is increased slightly compared to old exam. Large hiatal hernia increased slightly compared to old exam. ASSESSMENT: 1. Abdominal pain 2. Partial small bowel obstruction versus ileus 3. Large hiatal hernia 4. Multiple prior small bowel obstructions treated conservatively 5. History of bladder cancer with urostomy 6. UTI PLAN: -Keep patient nothing by mouth -Recommend conservative treatment -Continue pain medication as needed -Antibiotics per medical service for UTI -Further recommendations forthcoming per surgeon Thank you for this consultation Physician Ticket Sales Agent note has been reviewed by physician. Signing provider agrees with the documented findings, assessment, and plan of care. Past Medical History Past Medical History: Atrial Fibrillation, Cancer, GERD/Reflux, Hypertension, Osteoarthritis (OA) Additional Past Medical History / Comment(s): bladder cancer with urostomy, Small Bowel Obstruction, vertigo History of Any Multi-Drug Resistant Organisms: None Reported Past Surgical History: Ablation, Bladder Surgery, Heart Catheterization, Hernia Repair, Hysterectomy, Orthopedic Surgery, Pacemaker, Tonsillectomy Additional Past Surgical History / Comment(s): LEFT HIP SURGERY x 5, GRAFTS AND MARNIE 2015, ablasion CARDIOVERSION, urostomy 10/2010, cataracts 2017 Past Anesthesia/Blood Transfusion Reactions: Previous Problems w/ Anesthesia Additional Past Anesthesia/Blood Transfusion Reaction / Comm: asthma attack Type of Cardiac Device: Permanent Pacemaker Device Placement Date:: 2012 Past Psychological History: Anxiety Smoking Status: Former smoker Past Alcohol Use History: Occasional Past Drug Use History: None Reported - Past Family History Mother Family Medical History: Asthma, GERD/Reflux Additional Family Medical History / Comment(s): diverticulitus, glaucoma Father Family Medical History: Hyperlipidemia Additional Family Medical History / Comment(s): stroke, brain tumour Medications and Allergies Home Medications Medication Instructions Recorded Confirmed Type Omeprazole [PriLOSEC] 20 mg PO DAILY PRN 02/05/15 04/25/21 History traMADol HCl [Ultram] 50 mg PO DAILY PRN 02/05/15 04/25/21 History Meclizine [Antivert] 25 mg PO DAILY PRN 09/01/16 04/25/21 History Ondansetron [Zofran] 4 mg PO BID PRN 09/01/16 04/25/21 History Potassium Chloride [K-Tab ER] 10 meq PO DAILY 09/01/16 04/25/21 History Metoprolol Tartrate [Lopressor] 25 mg PO BID #60 tab 12/21/16 04/25/21 Rx Furosemide [Lasix] 20 mg PO DAILY 10/15/19 04/25/21 History Melatonin 10 mg PO HS PRN 10/15/19 04/25/21 History Furosemide [Lasix] 40 mg PO HS 06/02/20 04/25/21 History Propafenone HCl 150 mg PO BID 06/02/20 04/25/21 History Zolpidem [Ambien] 10 mg PO HS PRN 06/02/20 04/25/21 History Aspirin EC [Ecotrin] 325 mg PO DAILY 04/25/21 04/25/21 History Ferrous Sulfate [Feosol] 325 mg PO Q48H 04/25/21 04/25/21 History Ibuprofen [Motrin] 800 mg PO BID PRN 04/25/21 04/25/21 History Magnesium 250 mg PO BID 04/25/21 04/25/21 History Allergies Allergy/AdvReac Type Severity Reaction Status Date / Time ether Allergy Anaphylaxis Verified 04/25/21 23:33 formaldehyde Allergy Anaphylaxis Verified 04/25/21 23:33 tetanus and diphtheria Allergy Unknown Verified 04/25/21 23:33 toxoids [tetanus & diphtheria toxoids] codeine AdvReac Nausea Verified 04/25/21 23:33 Surgical - Exam Vital Signs Temp Pulse Resp BP Pulse Ox 97.6 F 82 18 150/89 97 04/25/21 22:32 04/25/21 22:32 04/25/21 22:32 04/25/21 22:32 04/25/21 22:32 Results - Labs 04/25/21 22:59 04/25/21 22:59 Abnormal Lab Results - Last 24 Hours (Table) 04/25/21 04/25/21 04/25/21 Range/Units 22:59 22:59 22:59 APTT 21.9 L (22.0-30.0) sec BUN 31 H (7-17) mg/dL Creatinine 1.33 H (0.52-1.04) mg/dL Glucose 115 H (74-99) mg/dL Urine Appearance Cloudy H (Clear) Urine Protein 1+ H (Negative) Urine Blood Trace H (Negative) Urine Nitrite Positive H (Negative) Ur Leukocyte Esterase Large H (Negative) Urine RBC 14 H (0-5) /hpf Urine WBC 51 H (0-5) /hpf Triple Phos Crystals Many H (None) /hpf Urine Bacteria Moderate H (None) /hpf Urine Mucus Rare H (None) /hpf Microbiology - Last 24 Hours (Table) 04/25/21 22:59 Urine Culture - Preliminary Urine,Voided Diabetes panel 04/25/21 Range/Units 22:59 Sodium 137 (137-145) mmol/L Potassium 4.8 (3.5-5.1) mmol/L Chloride 105 (98-107) mmol/L Carbon Dioxide 22 (22-30) mmol/L BUN 31 H (7-17) mg/dL Creatinine 1.33 H (0.52-1.04) mg/dL Glucose 115 H (74-99) mg/dL Calcium 10.1 (8.4-10.2) mg/dL AST 22 (14-36) U/L ALT 13 (4-34) U/L Alkaline Phosphatase 119 (38-126) U/L Total Protein 7.0 (6.3-8.2) g/dL Albumin 4.2 (3.5-5.0) g/dL Calcium panel 04/25/21 Range/Units 22:59 Calcium 10.1 (8.4-10.2) mg/dL Albumin 4.2 (3.5-5.0) g/dL Pituitary panel 04/25/21 Range/Units 22:59 Sodium 137 (137-145) mmol/L Potassium 4.8 (3.5-5.1) mmol/L Chloride 105 (98-107) mmol/L Carbon Dioxide 22 (22-30) mmol/L BUN 31 H (7-17) mg/dL Creatinine 1.33 H (0.52-1.04) mg/dL Glucose 115 H (74-99) mg/dL Calcium 10.1 (8.4-10.2) mg/dL Adrenal panel 04/25/21 Range/Units 22:59 Sodium 137 (137-145) mmol/L Potassium 4.8 (3.5-5.1) mmol/L Chloride 105 (98-107) mmol/L Carbon Dioxide 22 (22-30) mmol/L BUN 31 H (7-17) mg/dL Creatinine 1.33 H (0.52-1.04) mg/dL Glucose 115 H (74-99) mg/dL Calcium 10.1 (8.4-10.2) mg/dL Total Bilirubin 0.4 (0.2-1.3) mg/dL AST 22 (14-36) U/L ALT 13 (4-34) U/L Alkaline Phosphatase 119 (38-126) U/L Total Protein 7.0 (6.3-8.2) g/dL Albumin 4.2 (3.5-5.0) g/dL <Blayne Rabago - Last Filed: 04/26/21 16:36> History of Present Illness History of present illness: As above. Patient came with complaints of crampy abdominal pain. 1 episode of vomiting. CAT scan reviewed. No significant degree of obstruction noted. Begin clear liquid diet. Will follow along with you. Surgical - Exam Vital Signs Temp Pulse Resp BP Pulse Ox 97.6 F 82 18 150/89 97 04/25/21 22:32 04/25/21 22:32 04/25/21 22:32 04/25/21 22:32 04/25/21 22:32 Results - Labs 04/25/21 22:59 04/25/21 22:59 Abnormal Lab Results - Last 24 Hours (Table) 04/25/21 04/25/21 04/25/21 Range/Units 22:59 22:59 22:59 APTT 21.9 L (22.0-30.0) sec BUN 31 H (7-17) mg/dL Creatinine 1.33 H (0.52-1.04) mg/dL Glucose 115 H (74-99) mg/dL Urine Appearance Cloudy H (Clear) Urine Protein 1+ H (Negative) Urine Blood Trace H (Negative) Urine Nitrite Positive H (Negative) Ur Leukocyte Esterase Large H (Negative) Urine RBC 14 H (0-5) /hpf Urine WBC 51 H (0-5) /hpf Triple Phos Crystals Many H (None) /hpf Urine Bacteria Moderate H (None) /hpf Urine Mucus Rare H (None) /hpf Microbiology - Last 24 Hours (Table) 04/25/21 22:59 Urine Culture - Preliminary Urine,Voided Diabetes panel 04/25/21 Range/Units 22:59 Sodium 137 (137-145) mmol/L Potassium 4.8 (3.5-5.1) mmol/L Chloride 105 (98-107) mmol/L Carbon Dioxide 22 (22-30) mmol/L BUN 31 H (7-17) mg/dL Creatinine 1.33 H (0.52-1.04) mg/dL Glucose 115 H (74-99) mg/dL Calcium 10.1 (8.4-10.2) mg/dL AST 22 (14-36) U/L ALT 13 (4-34) U/L Alkaline Phosphatase 119 (38-126) U/L Total Protein 7.0 (6.3-8.2) g/dL Albumin 4.2 (3.5-5.0) g/dL Calcium panel 04/25/21 Range/Units 22:59 Calcium 10.1 (8.4-10.2) mg/dL Albumin 4.2 (3.5-5.0) g/dL Pituitary panel 04/25/21 Range/Units 22:59 Sodium 137 (137-145) mmol/L Potassium 4.8 (3.5-5.1) mmol/L Chloride 105 (98-107) mmol/L Carbon Dioxide 22 (22-30) mmol/L BUN 31 H (7-17) mg/dL Creatinine 1.33 H (0.52-1.04) mg/dL Glucose 115 H (74-99) mg/dL Calcium 10.1 (8.4-10.2) mg/dL Adrenal panel 04/25/21 Range/Units 22:59 Sodium 137 (137-145) mmol/L Potassium 4.8 (3.5-5.1) mmol/L Chloride 105 (98-107) mmol/L Carbon Dioxide 22 (22-30) mmol/L BUN 31 H (7-17) mg/dL Creatinine 1.33 H (0.52-1.04) mg/dL Glucose 115 H (74-99) mg/dL Calcium 10.1 (8.4-10.2) mg/dL Total Bilirubin 0.4 (0.2-1.3) mg/dL AST 22 (14-36) U/L ALT 13 (4-34) U/L Alkaline Phosphatase 119 (38-126) U/L Total Protein 7.0 (6.3-8.2) g/dL Albumin 4.2 (3.5-5.0) g/dL
[2021-04-26] MEDS ORDERED: traMADol 50 MG TAB PO PRN (11:45)
[2021-04-26] MEDS ORDERED: HYDROmorphone 0.5 MG/0.5 ML SYRINGE IM PRN (12:45)
[2021-04-26] MEDS: ACETAMINOPHEN TAB 325 MG TAB PO PRN ×2 (12:55→17:10)
[2021-04-26] MEDS: METOPROLOL TARTRATE 25 MG TAB PO SCH ×2 (12:56→20:25)
--- NOTE | 2021-04-26 13:06 | P.HPIM ---
History of Present Illness 75-year-old pleasant female came in with complaints of abdominal pain found to have ileus. Patient the abdominal pain was as severe as 10/10 as today better today comes in flashes. Patient was having some nausea as well denied any significant vomiting. Patient doesn't have an NG tube at this time patient the CT of the abdomen showed distended small bowel loops suggestive of partial small bowel obstruction or ileus. Patient had multiple small bowel obstructions in the past which were treated conservatively patient had a bladder cancer had a urostomy. Has a chronic bilateral lower extremity edema for which patient on IV Lasix which is being held temporally because of the acute renal failure. Patient baseline creatinine is around 0.8 to present creatinine is 1.33. Patient still has bilateral extended edema. REVIEW OF SYSTEMS: CONSTITUTIONAL: No fever, no malaise, no fatigue. HEENT: No recent visual problems or hearing problems. Denied any sore throat. CARDIOVASCULAR: No chest pain, orthopnea, PND, no palpitations, no syncope. PULMONARY: No shortness of breath, no cough, no hemoptysis. GASTROINTESTINAL: As mentioned in HPI NEUROLOGICAL: No headaches, no weakness, no numbness. HEMATOLOGICAL: Denies any bleeding or petechiae. GENITOURINARY: Denies any burning micturition, frequency, or urgency. MUSCULOSKELETAL/RHEUMATOLOGICAL: Denies any joint pain, swelling, or any muscle pain. ENDOCRINE: Denies any polyuria or polydipsia. The rest of the 14-point review of systems is negative. PHYSICAL EXAMINATION: GENERAL: The patient is alert and oriented x3, not in any acute distress. Well developed, well nourished. HEENT: Pupils are round and equally reacting to light. EOMI. No scleral icterus. No conjunctival pallor. Normocephalic, atraumatic. No pharyngeal erythema. No thyromegaly. CARDIOVASCULAR: S1 and S2 present. No murmurs, rubs, or gallops. PULMONARY: Chest is clear to auscultation, no wheezing or crackles. ABDOMEN: Soft, nontender, nondistended, bowel sounds are present patient has a urostomy in place MUSCULOSKELETAL: No joint swelling or deformity. EXTREMITIES: No cyanosis, clubbing, or pedal edema. NEUROLOGICAL: Gross neurological examination did not reveal any focal deficits. SKIN: No rashes. Assessment and plan Partial small bowel obstruction/Ileus: Patient will be nothing by mouth conservative measures patient will be started on a medications patient will be nothing by mouth except medications, try to avoid opiates patient will be started on IV Tylenol for pain as needed. -History of atrial fibrillation paroxysmal A. 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 Patient will be started back on rate control medications -History of bladder cancer with urostomy -Is symptomatic bacteriuria patient will not require any antibiotics patient has urostomy because of which her urine is abnormal patient doesn't have any fever, leukocytosis no evidence of sepsis at this time -Acute renal failure: Prerenal azotemia from diuretic therapy and dehydration patient can urine IV fluids -Bilateral lower extremity peripheral edema no history of CHF, once his kidney function improves probably can discuss any IV fluids and if she can tolerate it and she can be started on Lasix at the time DVT prophylaxis: Subcutaneous heparin Past Medical History Past Medical History: Atrial Fibrillation, Cancer, GERD/Reflux, Hypertension, Osteoarthritis (OA) Additional Past Medical History / Comment(s): bladder cancer with urostomy, Small Bowel Obstruction, vertigo History of Any Multi-Drug Resistant Organisms: None Reported Past Surgical History: Ablation, Bladder Surgery, Heart Catheterization, Hernia Repair, Hysterectomy, Orthopedic Surgery, Pacemaker, Tonsillectomy Additional Past Surgical History / Comment(s): LEFT HIP SURGERY x 5, GRAFTS AND MARNIE 2015, ablasion CARDIOVERSION, urostomy 10/2010, cataracts 2017 Past Anesthesia/Blood Transfusion Reactions: Previous Problems w/ Anesthesia Additional Past Anesthesia/Blood Transfusion Reaction / Comment(s): asthma attack Type of Cardiac Device: Permanent Pacemaker Device Placement Date:: 2012 Past Psychological History: Anxiety Smoking Status: Former smoker Past Alcohol Use History: Occasional Past Drug Use History: None Reported - Past Family History Mother Family Medical History: Asthma, GERD/Reflux Additional Family Medical History / Comment(s): diverticulitus, glaucoma Father Family Medical History: Hyperlipidemia Additional Family Medical History / Comment(s): stroke, brain tumour Medications and Allergies Home Medications Medication Instructions Recorded Confirmed Type Omeprazole [PriLOSEC] 20 mg PO DAILY PRN 02/05/15 04/25/21 History traMADol HCl [Ultram] 50 mg PO DAILY PRN 02/05/15 04/25/21 History Meclizine [Antivert] 25 mg PO DAILY PRN 09/01/16 04/25/21 History Ondansetron [Zofran] 4 mg PO BID PRN 09/01/16 04/25/21 History Potassium Chloride [K-Tab ER] 10 meq PO DAILY 09/01/16 04/25/21 History Metoprolol Tartrate [Lopressor] 25 mg PO BID #60 tab 12/21/16 04/25/21 Rx Furosemide [Lasix] 20 mg PO DAILY 10/15/19 04/25/21 History Melatonin 10 mg PO HS PRN 10/15/19 04/25/21 History Furosemide [Lasix] 40 mg PO HS 06/02/20 04/25/21 History Propafenone HCl 150 mg PO BID 06/02/20 04/25/21 History Zolpidem [Ambien] 10 mg PO HS PRN 06/02/20 04/25/21 History Aspirin EC [Ecotrin] 325 mg PO DAILY 04/25/21 04/25/21 History Ferrous Sulfate [Feosol] 325 mg PO Q48H 04/25/21 04/25/21 History Ibuprofen [Motrin] 800 mg PO BID PRN 04/25/21 04/25/21 History Magnesium 250 mg PO BID 04/25/21 04/25/21 History Allergies Allergy/AdvReac Type Severity Reaction Status Date / Time ether Allergy Anaphylaxis Verified 04/25/21 23:33 formaldehyde Allergy Anaphylaxis Verified 04/25/21 23:33 tetanus and diphtheria Allergy Unknown Verified 04/25/21 23:33 toxoids [tetanus & diphtheria toxoids] codeine AdvReac Nausea Verified 04/25/21 23:33 Physical Exam Vitals: Vital Signs Temp Pulse Pulse Resp BP BP Pulse Ox 04/26/21 09:33 98.1 F 68 18 131/75 93 L 04/26/21 08:33 60 18 114/63 93 L 04/26/21 06:00 82 20 118/66 97 04/26/21 01:02 86 20 134/70 97 04/25/21 23:15 63 20 141/81 95 04/25/21 22:32 97.6 F 82 18 150/89 97 Intake and Output 04/25/21 04/26/21 04/26/21 22:59 06:59 14:59 Output Total 580 Balance -580 Output: Urine 580 Other: Weight 77.111 kg 77.111 kg Results CBC & Chem 7: 04/25/21 22:59 04/25/21 22:59 Labs: Abnormal Lab Results - Last 24 Hours (Table) 04/25/21 04/25/21 04/25/21 Range/Units 22:59 22:59 22:59 APTT 21.9 L (22.0-30.0) sec BUN 31 H (7-17) mg/dL Creatinine 1.33 H (0.52-1.04) mg/dL Glucose 115 H (74-99) mg/dL Urine Appearance Cloudy H (Clear) Urine Protein 1+ H (Negative) Urine Blood Trace H (Negative) Urine Nitrite Positive H (Negative) Ur Leukocyte Esterase Large H (Negative) Urine RBC 14 H (0-5) /hpf Urine WBC 51 H (0-5) /hpf Triple Phos Crystals Many H (None) /hpf Urine Bacteria Moderate H (None) /hpf Urine Mucus Rare H (None) /hpf Microbiology - Last 24 Hours (Table) 04/25/21 22:59 Urine Culture - Preliminary Urine,Voided Thrombosis Risk Factor Assmnt - Choose All That Apply Any of the Below Risk Factors Present?: Yes Each Factor Represents 1 point: Obesity (BMI >25) Other Risk Factors: No Other congenital or acquired thrombophilia - If yes, enter type in comment: No Thrombosis Risk Factor Assessment Total Risk Factor Score: 1 Thrombosis Risk Factor Assessment Level: Low Risk
[2021-04-26] MEDS: PROPAFENONE 150 MG TAB PO SCH ×2 (15:11→20:26)
[2021-04-26] MEDS: HEPARIN SODIUM,PORCINE/PF 5,000 UNIT/0.5 ML SYRINGE SQ SCH (20:26)
[2021-04-27] MEDS: METOPROLOL TARTRATE 25 MG TAB PO SCH ×2 (07:52→20:32)
[2021-04-27] MEDS: HEPARIN SODIUM,PORCINE/PF 5,000 UNIT/0.5 ML SYRINGE SQ SCH ×2 (07:52→20:32)
[2021-04-27] MEDS: FAMOTIDINE 20 MG/2 ML VIAL IV SCH ×2 (07:52→20:32)
[2021-04-27] MEDS: PROPAFENONE 150 MG TAB PO SCH ×2 (07:52→20:32)
--- NOTE | 2021-04-27 13:59 | P.PN ---
Subjective Progress Note Date: 04/27/21 CHIEF COMPLAINT: Small bowel obstruction HISTORY OF PRESENT ILLNESS: The patient is a 75-year-old female with prior history of small bowel obstruction. She reports at least 15 prior events. Today she feels well. She is tolerating diet. No reports of abdominal pain. ROS: No fevers or chills. No chest pain. No nausea or vomiting. PHYSICAL EXAM: VITAL SIGNS: Reviewed CONSTITUTIONAL: Well developed and in no acute distress. EYES: Conjuctivae without sclera icterus. Extraocular movements grossly intact. HEAD, EARS, NOSE, THROAT: Moist buccal mucosa. Head is atraumatic, normocephalic. Hears conversational speech. No nasal drainage. NECK: No jugular venous distention RESPIRATORY: Non-labored respirations and equal bilateral excursions. CARDIOVASCULAR: Palpable 2+ radial pulses. ABDOMEN: No peritonitis MUSCULOSKELETAL: No gross deformity of the lower extremities noted. No clubbi ng. No cyanosis. SKIN: Good skin turgor. Well perfused. NEUROLOGIC: Cranial nerves II through XII grossly intact. No focal or lateralizing signs. PSYCH: Appropriate affect. Alert and oriented to person, place and time. CLINICAL LABS: Reviewed. White blood cell count normal 7.5. STUDIES: CT of the abdomen and pelvis in the pedal reviewed with large paraesophageal hiatal hernia. No overt evidence of bowel obstruction. Urostomy identified. This is my independent interpretation. ASSESSMENT: 1. Small bowel obstruction 2. Large paraesophageal hiatal hernia PLAN: 1. She has clinically improved. May be discharged from a surgical standpoint Objective - Vital Signs Vital signs: Vital Signs Temp 98.9 F 04/27/21 07:34 Pulse 67 04/27/21 07:34 Resp 16 04/27/21 07:34 BP 127/81 04/27/21 07:34 Pulse Ox 93 L 04/27/21 07:34 Intake & Output 04/26/21 04/27/21 04/27/21 18:59 06:59 18:59 Intake Total 825 320 Output Total 1000 Balance 825 320 -1000 Weight 77.111 kg Intake: Intake, IV Titration 825 Amount Sodium Chloride 0.9% 1, 825 000 ml @ 75 mls/hr IV . [id number] ANGEL Rx#:[id number] Oral 320 Output: Urine 1000 Other: # Voids 1 - Labs CBC & Chem 7: 04/25/21 22:59 04/25/21 22:59
--- NOTE | 2021-04-27 16:11 | P.PN ---
Subjective This is a pleasant 75 years old female with past medical history of atrial fibrillation not on anticoagulation, history of bladder cancer status post right urostomy, she does not follow up with urologist currently. Previously she had a urologist up [place]. She presents because of abdominal pain with nausea vomiting and suspected to have small bowel obstruction, versus ileus. She was admitted and surgery team consulted. Today she is tolerating diet, abdominal pain has completely resolved and no nausea vomiting. She did not have bowel movement yet. Surgery team or the cleared the patient for discharge. She had some flank pain earlier which is improved now. Her urine analysis is suspicious for UTI and urine culture is pending. We got to start the patient on ceftriaxone empirically total culture come back Her CT of the abdomen was showing mild right hydronephrosis and hydroureter. We will check renal ultrasound as well Her creatinine was slightly elevated upon admission at 1.3, we will check creatinine today Objective - Vital Signs Vital signs: Vital Signs Temp 98.1 F 04/27/21 13:08 Pulse 68 04/27/21 13:08 Resp 17 04/27/21 13:08 BP 125/62 04/27/21 13:08 Pulse Ox 98 04/27/21 13:08 Intake & Output 04/26/21 04/27/21 04/27/21 18:59 06:59 18:59 Intake Total 825 320 Output Total 1000 Balance 825 320 -1000 Weight 77.111 kg Intake: Intake, IV Titration 825 Amount Sodium Chloride 0.9% 1, 825 000 ml @ 75 mls/hr IV . [id number] [facility] Rx#:[id number] Oral 320 Output: Urine 1000 Other: # Voids 1 - Labs CBC & Chem 7: 04/25/21 22:59 04/25/21 22:59 Assessment and Plan Assessment: Mild acute kidney injury Possible acute urinary tract infection Small bowel obstruction versus ileus, resolved Summary of bladder cancer status post right urostomy Jignesh of atrial fibrillation, not on anticoagulation Plan: This is a pleasant 75 years old female who presents with possible SBO which is resolved currently. Also there is suspicion of UTI and mild AI. Start the patient on Rocephin and follow-up urine culture Monitor creatinine Check renal ultrasound Labs and medication were reviewed.. Continue same treatment. Continue with symptomatic treatment. Resume home medication. Monitor lytes and vitals. DVT and GI prophylaxis. Further recommendationsas per clinical course of the patient DVT prophylaxis: Subcutaneous heparin GI Prophylaxis: Pepcid
[2021-04-27] MEDS: SODIUM CHLORIDE 0.9% 1,000 ML IV SCH (18:07)
[2021-04-27 18:50] LABS: African American GFR (CKD) 86 (>60 ml/min/1.73 sqM); Anion Gap 5 mmol/L; Blood Urea Nitrogen 12 mg/dL (7-17); Calcium 9.4 mg/dL (8.4-10.2); Carbon Dioxide 25 mmol/L (22-30); Chloride 106 mmol/L (98-107); Glucose 138 mg/dL (74-99); Non-African American GFR(CKD) 74 (>60 ml/min/1.73 sqM); Sodium 136 mmol/L (137-145)
--- NOTE | 2021-04-27 21:24 | US ---
EXAMINATION TYPE: US renals and bladder DATE OF EXAM: 04/27/2021 COMPARISON: CT CLINICAL HISTORY: right hydronephrosis. Right hydronephrosis. Hx cystectomy, bladder tumor. EXAM MEASUREMENTS: Right Kidney: 10.1 x 5.9 x 6.0 cm Left Kidney: 12.5 x 4.6 x 5.3 cm Right Kidney: It is very difficult to visualize kidney borders. What appears to be right kidney tiss ue is measured. Possible anechoic appearance medially, possible hydronephrosis. Left Kidney: Appears slightly enlarged. Renal pelvis appears dilated. Bladder: Surgically removed. Incidental finding: Gallbladder wall appears thickened measuring 0.4 cm. Gallbladder appears distende d measuring 11.1 cm in length. Multiple hyperechoic foci with posterior shadowing seen within the gal lbladder. IMPRESSION: Left kidney appears normal. The right kidney is echogenic and consistent with atrophy and scarring. T here is mild right-sided hydronephrosis. No evidence of solid renal mass. Numerous calcified gallstones.
[2021-04-28] MEDS: SODIUM CHLORIDE 0.9% 1,000 ML IV SCH ×2 (04:36→19:57)
[2021-04-28] MEDS: HEPARIN SODIUM,PORCINE/PF 5,000 UNIT/0.5 ML SYRINGE SQ SCH ×2 (07:51→20:10)
[2021-04-28] MEDS: PROPAFENONE 150 MG TAB PO SCH ×2 (07:52→20:10)
[2021-04-28] MEDS: METOPROLOL TARTRATE 25 MG TAB PO SCH ×2 (07:52→20:10)
[2021-04-28] MEDS: FAMOTIDINE 20 MG/2 ML VIAL IV SCH ×2 (07:52→20:10)
[2021-04-28 09:54] LABS: Anion Gap 4.5 mmol/L (4.00-12.00); BUN/Creat Ratio 12.5 Ratio (12.00-20.00); Carbon Dioxide 24.5 mmol/L (21.6-31.8); Non-African American GFR(CKD) 71.6 (60.0-200.0); Potassium 4.2 mmol/L (3.5-5.5)
--- NOTE | 2021-04-28 12:40 | P.PN ---
Subjective This is a pleasant 75 years old female with past medical history of atrial fibrillation not on anticoagulation, history of bladder cancer status post right urostomy, she does not follow up with urologist currently. Previously she had a urologist up [place]. She presents because of abdominal pain with nausea vomiting and suspected to have small bowel obstruction, versus ileus. She was admitted and surgery team consulted. Today she is tolerating diet, abdominal pain has completely resolved and no nausea vomiting. She did not have bowel movement yet. Surgery team or the cleared the patient for discharge. She had some flank pain earlier which is improved now. Her urine analysis is suspicious for UTI and urine culture is pending. We got to start the patient on ceftriaxone empirically total culture come back Her CT of the abdomen was showing mild right hydronephrosis and hydroureter. We will check renal ultrasound as well Her creatinine was slightly elevated upon admission at 1.3, we will check creatinine today 04/28/2021 Patient with no nausea vomiting and tolerating diet. Having regular bowel movements. Abdominal pain except sometimes she got a little pain on the sites which resolves quickly. Patient is suspicious for colic. UTI is suspected and patient is started on Rocephin. Her urine culture is growing gram-negative bacilli and final result is pending. Renal ultrasound showing mild right hydronephrosis and atrophic kidney, urology service consulted Possible discharge in 24-48 hours once urine culture is back. Objective - Vital Signs Vital signs: Vital Signs Temp 97.7 F 04/28/21 08:00 Pulse 66 04/28/21 08:00 Resp 18 04/28/21 08:00 BP 145/75 04/28/21 08:00 Pulse Ox 98 04/28/21 08:00 Intake & Output 04/27/21 04/28/21 04/28/21 18:59 06:59 18:59 Output Total 1000 2200 Balance -1000 -2200 Output: Urine 1000 2200 Other: # Voids 1 - Exam GENERAL: The patient is alert and oriented x3, not in any acute distress. Well developed, well nourished. HEENT: Pupils are round and equally reacting to light. EOMI. No scleral icterus. No conjunctival pallor. Normocephalic, atraumatic. No pharyngeal erythema. No thyromegaly. CARDIOVASCULAR: S1 and S2 present. No murmurs, rubs, or gallops. PULMONARY: Chest is clear to auscultation, no wheezing or crackles. ABDOMEN: Soft, nontender, nondistended, normoactive bowel sounds. No palpable organomegaly. Right urostomy back MUSCULOSKELETAL: No joint swelling or deformity. EXTREMITIES: No cyanosis, clubbing, or pedal edema. NEUROLOGICAL: Gross neurological examination did not reveal any focal deficits. SKIN: No rashes. no petechiae. - Labs CBC & Chem 7: 04/25/21 22:59 04/28/21 05:31 Labs: Abnormal Lab Results - Last 24 Hours (Table) 04/27/21 04/28/21 Range/Units 18:09 05:31 Sodium 136 L (137-145) mmol/L Chloride 110 H (96-109) mmol/L Glucose 138 H 111 H (74-99) mg/dL Microbiology - Last 24 Hours (Table) 04/25/21 22:59 Urine Culture - Preliminary Urine,Voided Gram Neg Bacilli Assessment and Plan Assessment: acute urinary tract infection Mild to right-sided hydronephrosis with atrophic kidney Mild acute kidney injury, improved Small bowel obstruction versus ileus, resolved Summary of bladder cancer status post right urostomy Jignesh of atrial fibrillation, not on anticoagulation Plan: This is a pleasant 75 years old female who presents with possible SBO which is resolved currently. Also there is suspicion of UTI and mild AI. Start the patient on Rocephin and follow-up urine culture Consult urology Labs and medication were reviewed.. Continue same treatment. Continue with symptomatic treatment. Resume home medication. Monitor lytes and vitals. DVT and GI prophylaxis. Further recommendationsas per clinical course of the patient DVT prophylaxis: Subcutaneous heparin GI Prophylaxis: Pepcid
--- NOTE | 2021-04-28 17:20 | P.GSCN ---
History of Present Illness Consult date: 04/28/21 History of present illness: This is a pleasant 75-year-old female with multiple previous abdominal surgeries who was admitted the hospital with possibly a partial small bowel obstruction. She is admitted on 04/25/2021. She had a computed tomography scan of the abdomen that identified some mild hydronephrosis on the right side and for this reason we are asked to see the patient. The patient has a history of muscle invasive bladder cancer for which she underwent a cystectomy at the [facility] at the [facility] many years ago. According the patient she had right ureteral obstruction at the time of the cystectomy leading to hydronephrosis subsequent scarring of the kidney. She's has been told in the past of the right kidney is distinctly smaller with some chronic hydronephrosis. She has had no problems since her cystectomy. She followed with the urologist in [place] for several years but he retired. She has not seen a urinary tract doctor in 5 years. He required any chemo or radiation postoperatively. She has done very well. She has no problems with her stoma. She does have a unique star appliance provided by [employer] due to the proximity to her umbilicus. She denies blood. She gets occasional infection. She has no right flank pain. The computed tomography scan is reviewed by me identified a small right kidney with some mild hydronephrosis that is probably chronic. Her kidney function is normal Review of Systems All systems: negative Past Medical History Past Medical History: Atrial Fibrillation, Cancer, GERD/Reflux, Hypertension, Os teoarthritis (OA) Additional Past Medical History / Comment(s): bladder cancer with urostomy, Small Bowel Obstruction, vertigo History of Any Multi-Drug Resistant Organisms: None Reported Past Surgical History: Ablation, Bladder Surgery, Heart Catheterization, Hernia Repair, Hysterectomy, Orthopedic Surgery, Pacemaker, Tonsillectomy Additional Past Surgical History / Comment(s): LEFT HIP SURGERY x 5, GRAFTS AND MARNIE 2015, ablasion CARDIOVERSION, urostomy 10/2010, cataracts 2017 Past Anesthesia/Blood Transfusion Reactions: Previous Problems w/ Anesthesia Additional Past Anesthesia/Blood Transfusion Reaction / Comm: asthma attack Type of Cardiac Device: Permanent Pacemaker Device Placement Date:: 2012 Past Psychological History: Anxiety Smoking Status: Former smoker Past Alcohol Use History: Occasional Past Drug Use History: None Reported - Past Family History Mother Family Medical History: Asthma, GERD/Reflux Additional Family Medical History / Comment(s): diverticulitus, glaucoma Father Family Medical History: Hyperlipidemia Additional Family Medical History / Comment(s): stroke, brain tumour Medications and Allergies Home Medications Medication Instructions Recorded Confirmed Type Omeprazole [PriLOSEC] 20 mg PO DAILY PRN 02/05/15 04/25/21 History traMADol HCl [Ultram] 50 mg PO DAILY PRN 02/05/15 04/25/21 History Meclizine [Antivert] 25 mg PO DAILY PRN 09/01/16 04/25/21 History Ondansetron [Zofran] 4 mg PO BID PRN 09/01/16 04/25/21 History Potassium Chloride [K-Tab ER] 10 meq PO DAILY 09/01/16 04/25/21 History Metoprolol Tartrate [Lopressor] 25 mg PO BID #60 tab 12/21/16 04/25/21 Rx Furosemide [Lasix] 20 mg PO DAILY 10/15/19 04/25/21 History Melatonin 10 mg PO HS PRN 10/15/19 04/25/21 History Furosemide [Lasix] 40 mg PO HS 06/02/20 04/25/21 History Propafenone HCl 150 mg PO BID 06/02/20 04/25/21 History Zolpidem [Ambien] 10 mg PO HS PRN 06/02/20 04/25/21 History Aspirin EC [Ecotrin] 325 mg PO DAILY 04/25/21 04/25/21 History Ferrous Sulfate [Feosol] 325 mg PO Q48H 04/25/21 04/25/21 History Ibuprofen [Motrin] 800 mg PO BID PRN 04/25/21 04/25/21 History Magnesium 250 mg PO BID 04/25/21 04/25/21 History Allergies Allergy/AdvReac Type Severity Reaction Status Date / Time ether Allergy Anaphylaxis Verified 04/25/21 23:33 formaldehyde Allergy Anaphylaxis Verified 04/25/21 23:33 tetanus and diphtheria Allergy Unknown Verified 04/25/21 23:33 toxoids [tetanus & diphtheria toxoids] codeine AdvReac Nausea Verified 04/25/21 23:33 Surgical - Exam Vital Signs Temp Pulse Resp BP Pulse Ox 97.6 F 82 18 150/89 97 04/25/21 22:32 04/25/21 22:32 04/25/21 22:32 04/25/21 22:32 04/25/21 22:32 - General well developed, well nourished, no distress - Eyes PERRL - ENT no hearing loss - Neck trachea midline - Respiratory normal expansion, normal respiratory effort - Cardiovascular Rhythm: regular - Abdomen Right lower quadrant ileal loop Abdomen: soft, non tender - Integumentary no growths - Neurologic normal coordination, normal sensation - Musculoskeletal normal posture - Psychiatric oriented to time, oriented to person, oriented to place, speech is normal, memory intact Results - Labs 04/25/21 22:59 04/28/21 05:31 Abnormal Lab Results - Last 24 Hours (Table) 04/27/21 04/28/21 Range/Units 18:09 05:31 Sodium 136 L (137-145) mmol/L Chloride 110 H (96-109) mmol/L Glucose 138 H 111 H (74-99) mg/dL Microbiology - Last 24 Hours (Table) 04/25/21 22:59 Urine Culture - Final Urine,Voided Providencia rettgeri Diabetes panel 04/27/21 04/28/21 Range/Units 18:09 05:31 Sodium 136 L 139 (137-145) mmol/L Potassium 4.0 4.2 (3.5-5.1) mmol/L Chloride 106 110 H (98-107) mmol/L Carbon Dioxide 25 24.5 (22-30) mmol/L BUN 12 10.0 (7-17) mg/dL Creatinine 0.78 0.8 (0.52-1.04) mg/dL Glucose 138 H 111 H (74-99) mg/dL Calcium 9.4 9.0 (8.4-10.2) mg/dL Calcium panel 04/27/21 04/28/21 Range/Units 18:09 05:31 Calcium 9.4 9.0 (8.4-10.2) mg/dL Pituitary panel 04/27/21 04/28/21 Range/Units 18:09 05:31 Sodium 136 L 139 (137-145) mmol/L Potassium 4.0 4.2 (3.5-5.1) mmol/L Chloride 106 110 H (98-107) mmol/L Carbon Dioxide 25 24.5 (22-30) mmol/L BUN 12 10.0 (7-17) mg/dL Creatinine 0.78 0.8 (0.52-1.04) mg/dL Glucose 138 H 111 H (74-99) mg/dL Calcium 9.4 9.0 (8.4-10.2) mg/dL Adrenal panel 04/27/21 04/28/21 Range/Units 18:09 05:31 Sodium 136 L 139 (137-145) mmol/L Potassium 4.0 4.2 (3.5-5.1) mmol/L Chloride 106 110 H (98-107) mmol/L Carbon Dioxide 25 24.5 (22-30) mmol/L BUN 12 10.0 (7-17) mg/dL Creatinine 0.78 0.8 (0.52-1.04) mg/dL Glucose 138 H 111 H (74-99) mg/dL Calcium 9.4 9.0 (8.4-10.2) mg/dL - Imaging CT scan - abdomen: report reviewed, image reviewed CT scan - pelvis: report reviewed, image reviewed Assessment and Plan Assessment: Impression: History of muscle invasive bladder cancer treated with cystectomy and ileal loop. Atrophy of the right kidney with mild chronic hydronephrosis secondary to invasive bladder cancer. Normal renal function. Recommendation: There is nothing further from a urologic standpoint that needs to be done. She is managed very well her urinary tract. IV given her my card such that if she wishes any further urologic follow-up she can contact me.
--- NOTE | 2021-04-28 18:27 | P.PN ---
Subjective Progress Note Date: 04/28/21 CHIEF COMPLAINT: Small bowel obstruction HISTORY OF PRESENT ILLNESS: The patient is a 75-year-old female with prior history of small bowel obstruction. She reports at least 15 prior events. She is tolerating regular diet. She was seen by urology. She had an ultrasound of her kidneys. She reports her small bowel obstruction is resolved. ROS: No fevers or chills. No chest pain. No nausea or vomiting. PHYSICAL EXAM: VITAL SIGNS: Reviewed CONSTITUTIONAL: Well developed and in no acute distress. EYES: Conjuctivae without sclera icterus. Extraocular movements grossly intact. HEAD, EARS, NOSE, THROAT: Moist buccal mucosa. Head is atraumatic, normocephalic. Hears conversational speech. No nasal drainage. NECK: No jugular venous distention RESPIRATORY: Non-labored respirations and equal bilateral excursions. CARDIOVASCULAR: Palpable 2+ radial pulses. ABDOMEN: No peritonitis MUSCULOSKELETAL: No gross deformity of the lower extremities noted. No clubbing. No cyanosis. SKIN: Good skin turgor. Well perfused. NEUROLOGIC: Cranial nerves II through XII grossly intact. No focal or lateralizing signs. PSYCH: Appropriate affect. Alert and oriented to person, place and time. CLINICAL LABS: Reviewed. STUDIES: US bladder done. ASSESSMENT: 1. Small bowel obstruction 2. Large paraesophageal hiatal hernia 3. Urostomy PLAN: 1. Diet as tolerated 2. Management per urology for urostomy Objective - Vital Signs Vital signs: Vital Signs Temp 98.1 F 04/28/21 14:00 Pulse 80 04/28/21 14:00 Resp 18 04/28/21 14:00 BP 173/70 04/28/21 14:00 Pulse Ox 95 04/28/21 14:00 Intake & Output 04/27/21 04/28/21 04/28/21 18:59 06:59 18:59 Output Total 1000 2200 1600 Balance -1000 -2200 -1600 Output: Urine 1000 2200 1600 Other: # Voids 1 - Labs CBC & Chem 7: 04/25/21 22:59 04/28/21 05:31 Labs: Abnormal Lab Results - Last 24 Hours (Table) 04/27/21 04/28/21 Range/Units 18:09 05:31 Sodium 136 L (137-145) mmol/L Chloride 110 H (96-109) mmol/L Glucose 138 H 111 H (74-99) mg/dL Microbiology - Last 24 Hours (Table) 04/25/21 22:59 Urine Culture - Final Urine,Voided Vineetia retkallieeri
[2021-04-29] MEDS: HEPARIN SODIUM,PORCINE/PF 5,000 UNIT/0.5 ML SYRINGE SQ SCH (07:22)
[2021-04-29] MEDS: FAMOTIDINE 20 MG/2 ML VIAL IV SCH (07:23)
[2021-04-29] MEDS: METOPROLOL TARTRATE 25 MG TAB PO SCH (07:23)
[2021-04-29] MEDS: PROPAFENONE 150 MG TAB PO SCH (07:23)
[2021-04-29] MEDS: SODIUM CHLORIDE 0.9% 1,000 ML IV SCH (07:24)
[2021-04-29 08:09] VITALS: BP 141/82; PULSE 64; RESP 16; TEMP 98.4
--- NOTE | 2021-04-29 11:53 | P.PN ---
Subjective Progress Note Date: 04/29/21 Principal diagnosis: Small bowel obstruction Patient is doing well today. She is tolerating her diet. She states she is going home. She is having good bowel function. Denies nausea or vomiting. Objective - Vital Signs Vital signs: Vital Signs Temp 98.4 F 04/29/21 08:00 Pulse 64 04/29/21 08:00 Resp 16 04/29/21 09:51 BP 141/82 04/29/21 08:00 Pulse Ox 96 04/29/21 08:00 Intake & Output 04/28/21 04/29/21 04/29/21 18:59 06:59 18:59 Output Total 1600 800 Balance -1600 -800 Output: Urine 1600 800 - Exam Abdomen: Soft, nontender, nondistended, right-sided urostomy - Labs CBC & Chem 7: 04/25/21 22:59 04/28/21 05:31 Labs: Microbiology - Last 24 Hours (Table) 04/25/21 22:59 Urine Culture - Final Urine,Voided Providencia rettgeri Assessment and Plan (1) Small bowel obstruction Narrative/Plan: Patient is doing better at this time. Continue diet as tolerated. May discharge. Follow-up as needed. Status: Acute Code(s): K56.609 - UNSP INTESTNL OBST, UNSP TO PARTIAL VERSUS COMPLETE OBST SNOMED Code(s): 923281310
--- NOTE | 2021-04-29 23:36 | P.DS ---
Providers Date of admission: 04/26/21 00:29 Attending physician: Rao Garduno Consults: 04/26/21 00:36 Consult Physician Stat Consulting Provider: Blayne Rabago Consult Reason/Comments: small bowel obstruction Do you want consulting provider notified?: Yes 04/28/21 12:35 Consult Physician Routine Consulting Provider: Samm Izquierdo Reason/Comments: right hydronephrosis Do you want consulting provider notified?: Yes Primary care physician: Krystal Moya Hospital Course: Diagnoses: acute urinary tract infection Mild to right-sided hydronephrosis with atrophic kidney Mild acute kidney injury, improved 2.5 cm left adrenal mass, unchanged, patient informed about this abnormality with recommendation for outpatient follow-up with Dr. Rice and she agrees Small bowel obstruction versus ileus, resolved Summary of bladder cancer status post right urostomy History of atrial fibrillation, not on anticoagulation Clinical course: This is a pleasant 75 years old female with past medical history of atrial fibrillation not on anticoagulation, history of bladder cancer status post right urostomy, she does not follow up with urologist currently. [place] She presents because of abdominal pain with nausea vomiting and suspected to have small bowel obstruction, versus ileus. She was admitted and surgery team consulted. Her ileus was resolved and she is tolerating diet and having regular bowel movements. Start her ileus is secondary to acute urinary tract infection secondary to providentia which is susceptible to ceftriaxone, patient's symptoms of UTI significantly improved, patient will be discharged on short course of oral antibiotics on Ceftin Dr. Izquierdo urologist evaluated the patient and recommended an outpatient follow- up, contact information is provided for the patient Patient is back to her baseline and she was able to be discharged today Problems and management plan were discussed with the patient and he verbalized understanding and acceptance Patient was found stable and can be discharged home however he needs follow-up as an outpatient. Patient was instructed to follow up with PCP within one week and patient agrees Patient was instructed to follow up with urologist Dr. Izquierdo in one week and she agrees Physical exam Gen: patient is a AAOx3, no distress CVS: S1-S2, RRR, no murmur Lungs: B/L CTA, no wheezing -Abdomen: soft, no distention, no tenderness, positive bowel sounds. Right urostomy bag is in place. Extremity: no leg edema or induration Time spent more than 35 minutes Patient Condition at Discharge: Stable Plan - Discharge Summary Discharge Rx Participant: Yes New Discharge Prescriptions: New Cefuroxime Axetil [Ceftin] 500 mg PO BID 7 Days #14 tab Continue traMADol HCl [Ultram] 50 mg PO DAILY PRN PRN Reason: Pain Omeprazole [PriLOSEC] 20 mg PO DAILY PRN PRN Reason: GERDS Potassium Chloride [K-Tab ER] 10 meq PO DAILY Meclizine [Antivert] 25 mg PO DAILY PRN PRN Reason: Vertigo Ondansetron [Zofran] 4 mg PO BID PRN PRN Reason: Nausea Metoprolol Tartrate [Lopressor] 25 mg PO BID #60 tab Furosemide [Lasix] 20 mg PO DAILY Melatonin 10 mg PO HS PRN PRN Reason: SLEEP Furosemide [Lasix] 40 mg PO HS Zolpidem [Ambien] 10 mg PO HS PRN PRN Reason: Insomnia Propafenone HCl 150 mg PO BID Ferrous Sulfate [Iron (65 MG Elemental)] 325 mg PO Q48H Aspirin EC [Ecotrin] 325 mg PO DAILY Magnesium 250 mg PO BID Discontinued Ibuprofen [Motrin] 800 mg PO BID PRN PRN Reason: Pain Discharge Medication List Omeprazole [PriLOSEC] 20 mg PO DAILY PRN 02/05/15 [History] traMADol HCl [Ultram] 50 mg PO DAILY PRN 02/05/15 [History] Meclizine [Antivert] 25 mg PO DAILY PRN 09/01/16 [History] Ondansetron [Zofran] 4 mg PO BID PRN 09/01/16 [History] Potassium Chloride [K-Tab ER] 10 meq PO DAILY 09/01/16 [History] Metoprolol Tartrate [Lopressor] 25 mg PO BID #60 tab 12/21/16 [Rx] Furosemide [Lasix] 20 mg PO DAILY 10/15/19 [History] Melatonin 10 mg PO HS PRN 10/15/19 [History] Furosemide [Lasix] 40 mg PO HS 06/02/20 [History] Propafenone HCl 150 mg PO BID 06/02/20 [History] Zolpidem [Ambien] 10 mg PO HS PRN 06/02/20 [History] Aspirin EC [Ecotrin] 325 mg PO DAILY 04/25/21 [History] Ferrous Sulfate [Iron (65 MG Elemental)] 325 mg PO Q48H 04/25/21 [History] Magnesium 250 mg PO BID 04/25/21 [History] Cefuroxime Axetil [Ceftin] 500 mg PO BID 7 Days #14 tab 04/29/21 [Rx] Follow up Appointment(s)/Referral(s): Blayne Rabago MD [Medical Doctor] - As Needed Nita Rice MD [Primary Care Provider] - 05/01/21 1:00 pm Samm Izquierdo MD [STAFF PHYSICIAN] - 1 Week (Office will be calling patient with appointment) Patient Instructions/Handouts: Urinary Tract Infection in Women (DC), Bowel Obstruction (DC) Activity/Diet/Wound Care/Special Instructions: heart healthy diet activity is restricted till you see your doctor Discharge Disposition: HOME SELF-CARE
== END 2021-04-29 11:39 | disposition home or self-care (01) | DRG 389 ==
LOC: EC 22:26 → 4SSUR 04-26 00:29
PROVIDERS: ADMIT Hospitalist; ATTEND Hospitalist
DX: K56.7 Ileus, unspecified (principal); N17.9 Acute kidney failure, unspecified; N13.6 Pyonephrosis; K56.600 Partial intestinal obstruction, unspecified as to cause; Z93.6 Other artificial openings of urinary tract status; Z85.51 Personal history of malignant neoplasm of bladder; Z87.440 Personal history of urinary (tract) infections; Z79.82 Long term (current) use of aspirin; Z87.891 Personal history of nicotine dependence; Z82.5 Family history of asthma and other chronic lower respiratory diseases; Z82.3 Family history of stroke; R60.0 Localized edema; I48.0 Paroxysmal atrial fibrillation; I10 Essential (primary) hypertension; Z95.0 Presence of cardiac pacemaker; K44.9 Diaphragmatic hernia without obstruction or gangrene; F41.9 Anxiety disorder, unspecified; E27.9 Disorder of adrenal gland, unspecified; N27.0 Small kidney, unilateral; Z90.710 Acquired absence of both cervix and uterus; J45.909 Unspecified asthma, uncomplicated; Z79.899 Other long term (current) drug therapy
CPT/HCPCS: 36415; 74018; 74176; 76770; 80048; 80053; 81001; 82150; 83605; 83690; 84484; 85025; 85610; 85730; 87077; 87086; 87186; 96361; 96374; 96375; 99285

== ENCOUNTER 2021-09-06 11:01 | Inpatient (IN) | payer MEDICARE, OTHER ==
[2021-09-06] MEDS ORDERED: SODIUM CHLORIDE 0.9% 500 ML 500 ML IV STA (11:38)
[2021-09-06 11:59] LABS: Basophils % (A) 1 %; Eosinophils % (A) 0 %; HCT 33.4 % (34.0-46.0); HGB 10.9 gm/dL (11.4-16.0); Hypochromasia Slight; Lymphocytes # (A) 0.4 k/uL (1.0-4.8); Lymphocytes % (A) 11 %; MCH 26.7 pg (25.0-35.0); MCHC 32.6 g/dL (31.0-37.0); MCV 81.7 fL (80.0-100.0); Mean Platelet Volume 8.1; Monocytes # (A) 0.2 k/uL (0-1.0); Monocytes % (A) 5 %; Neutrophils # (A) 3.3 k/uL (1.3-7.7); Neutrophils % (A) 82 %; Platelet Count 211 k/uL (150-450); Poikilocytosis Slight; RBC 4.09 m/uL (3.80-5.40); RDW 14.5 % (11.5-15.5)
[2021-09-06] MEDS ORDERED: ONDANSETRON 4 MG/2 ML VIAL IVP STA (12:05)
--- NOTE | 2021-09-06 12:08 | XR ---
EXAMINATION TYPE: XR chest 2V DATE OF EXAM: 09/06/2021 COMPARISON: Chest x-ray October 18, 2019 HISTORY: Weakness and cough for 3 months. TECHNIQUE: Frontal and lateral views of the chest are obtained. FINDINGS: There is chronic emphysematous change with new patchy left basilar opacity just above diap hragm on frontal view as well seen on lateral view. Interval resolution of small tiny bilateral pleur al effusions. The cardiac silhouette size is mildly enlarged with dual lead pacemaker and atheroscle rotic thoracic aorta. Retrocardiac opacity consistent with moderate size hiatal hernia redemonstrated . The osseous structures are demineralized. IMPRESSION: Chronic changes and cardiomegaly with new patchy left basilar acute infiltrate and/or at electasis.
[2021-09-06 12:19] LABS: INR 0.9 (<1.2); Partial Thromboplastin Time 23.1 sec (22.0-30.0); Prothrombin Time 9.7 sec (9.0-12.0)
[2021-09-06 12:20] LABS: Albumin 3.2 g/dL (3.5-5.0); Calcium 8.8 mg/dL (8.4-10.2); Magnesium 2.5 mg/dL (1.6-2.3); Phosphorus 1.6 mg/dL (2.5-4.5); Potassium 4.4 mmol/L (3.5-5.1); Total Bilirubin 0.4 mg/dL (0.2-1.3); Total Protein 6.3 g/dL (6.3-8.2)
[2021-09-06 12:38] LABS: Amorphous Sediment,Urine Many /hpf; Appearance,Urine Turbid (Clear); Bacteria,Urine Few /hpf; Bilirubin,Urine Negative (Negative); Blood,Urine Negative (Negative); Color,Urine Yellow; Glucose,Urine (UA) Negative (Negative); Ketones,Urine Negative (Negative); Leukocyte Esterase,Urine Large (Negative); Nitrite,Urine Positive (Negative); PH, Urine 8.5 (5.0-8.0); Protein,Urine 3+ (Negative); Specific Gravity,Urine 1.018 (1.001-1.035); Squamous Epithelial Cell,Urine 3 /hpf (0-4); Urobilinogen,Urine <2.0 mg/dL (<2.0); WBC,Urine 22 /hpf (0-5)
[2021-09-06] MEDS ORDERED: NALOXONE 0.4 MG/ML 1 ML VIAL IV PRN (14:09)
[2021-09-06] MEDS ORDERED: ONDANSETRON 4 MG/2 ML VIAL IVP PRN (14:09)
[2021-09-06] MEDS ORDERED: IBUPROFEN 400 MG TAB PO PRN (14:09)
[2021-09-06] MEDS ORDERED: ACETAMINOPHEN TAB 325 MG TAB PO PRN (14:09)
--- NOTE | 2021-09-06 14:09 | ED ---
Weakness HPI - General Chief complaint: Weakness Stated complaint: Weakness, lethargy Time Seen by Provider: 09/06/21 11:11 Source: patient, EMS, RN notes reviewed, old records reviewed Mode of arrival: EMS Limitations: no limitations - History of Present Illness Initial comments: Patient is a 75-year-old female with history of A. fib, hypertension, urostomy. Bladder cancer, presenting to the emergency department via EMS with complaints of generalized weakness over the past 3 weeks. Patient was treated for a UTI she states about 2 weeks ago, with Macrobid, she states that she continues to feel weak, no appetite and just generalized fatigue. She denies any fevers or chills, no shortness of breath or cough. She denies any chest pain, no abdomi nal pain. She's been having intermittent nausea, intermittent diarrhea. Patient has no further complaints. Her vital signs are stable upon arrival. - Related Data Home Medications Medication Instructions Recorded Confirmed Omeprazole [PriLOSEC] 20 mg PO Q48H 02/05/15 09/06/21 traMADol HCl [Ultram] 50 mg PO DAILY PRN 02/05/15 09/06/21 Meclizine [Antivert] 25 mg PO TID PRN 09/01/16 09/06/21 Ondansetron [Zofran] 4 mg PO BID PRN 09/01/16 09/06/21 Potassium Chloride [K-Tab ER] 10 meq PO DAILY 09/01/16 09/06/21 Furosemide [Lasix] 20 mg PO DAILY 10/15/19 09/06/21 Melatonin 10 mg PO HS PRN 10/15/19 09/06/21 Furosemide [Lasix] 40 mg PO HS 06/02/20 09/06/21 Propafenone HCl 150 mg PO BID 06/02/20 09/06/21 Zolpidem [Ambien] 10 mg PO HS PRN 06/02/20 09/06/21 Aspirin EC [Ecotrin] 325 mg PO DAILY 04/25/21 09/06/21 Magnesium 250 mg PO BID 04/25/21 09/06/21 Ibuprofen [Motrin] 800 mg PO BID PRN 09/06/21 09/06/21 Previous Rx's Medication Instructions Recorded Metoprolol Tartrate [Lopressor] 25 mg PO BID #60 tab 12/21/16 Allergies Allergy/AdvReac Type Severity Reaction Status Date / Time ether Allergy Anaphylaxis Verified 09/06/21 12:44 formaldehyde Allergy Anaphylaxis Verified 09/06/21 12:44 tetanus and diphtheria Allergy Unknown Verified 09/06/21 12:44 toxoids [tetanus & diphtheria toxoids] codeine AdvReac Nausea Verified 09/06/21 12:44 Review of Systems ROS Statement: Those systems with pertinent positive or pertinent negative responses have been documented in the HPI. ROS Other: All systems not noted in ROS Statement are negative. Past Medical History Past Medical History: Atrial Fibrillation, Cancer, GERD/Reflux, Hypertension, Osteoarthritis (OA) Additional Past Medical History / Comment(s): bladder cancer with urostomy, Small Bowel Obstruction, vertigo History of Any Multi-Drug Resistant Organisms: None Reported Past Surgical History: Ablation, Bladder Surgery, Heart Catheterization, Hernia Repair, Hysterectomy, Orthopedic Surgery, Pacemaker, Tonsillectomy Additional Past Surgical History / Comment(s): LEFT HIP SURGERY x 5, GRAFTS AND MARNIE 2015, ablasion CARDIOVERSION, urostomy 10/2010, cataracts 2017 Past Anesthesia/Blood Transfusion Reactions: Previous Problems w/ Anesthesia Additional Past Anesthesia/Blood Transfusion Reaction / Comment(s): asthma at tack Type of Cardiac Device: Permanent Pacemaker Device Placement Date:: 2012 Past Psychological History: Anxiety Smoking Status: Former smoker Past Alcohol Use History: Occasional Past Drug Use History: None Reported - Past Family History Mother Family Medical History: Asthma, GERD/Reflux Additional Family Medical History / Comment(s): diverticulitus, glaucoma Father Family Medical History: Hyperlipidemia Additional Family Medical History / Comment(s): stroke, brain tumour General Exam - General Exam Comments Initial Comments: GENERAL: Patient is well-developed and well-nourished. Patient is nontoxic and in no acute distress. HEAD: Atraumatic, normocephalic. EYES: Pupils equal round and reactive to light, extraocular movements intact, sclera anicteric, conjunctiva are normal. Eyelids were unremarkable. ENT: Nares patent, oropharynx clear without exudates. Moist mucous membranes. NECK: Normal range of motion, supple without lymphadenopathy or JVD. LUNGS: Unlabored respirations. Breath sounds clear to auscultation bilaterally and equal. No wheezes rales or rhonchi. HEART: Regular rate and rhythm without murmurs, rubs or gallops. ABDOMEN: Soft, nontender, normoactive bowel sounds. No guarding, no rebound. No masses appreciated. : Deferred MUSCULOSKELETAL: Normal extremities with adequate strength and normal range of motion, no pitting or edema. No clubbing or cyanosis. NEUROLOGICAL: Patient is alert and oriented x 3. Motor and sensory are also intact. Cranial nerves II through XII grossly intact. Symmetrical smile. Normal speech, normal gait. PSYCH: Normal mood, normal affect. SKIN: Warm, Dry, normal turgor, no rashes or lesions noted. Limitations: no limitations Course Vital Signs 09/06/21 11:06 Temperature 96.5 F L Pulse Rate 71 Respiratory 18 Rate Blood Pressure 118/64 O2 Sat by Pulse 93 L Oximetry EKG Findings - EKG Comments: EKG Findings:: Atrial paced rhythm, no signs of acute ST segment elevation. This is similar to her previous on 10/15/2019. Ventricular rate 68, MN interval 192, QT 384. Medical Decision Making - Medical Decision Making Patient is a 75-year-old female with history of A. fib, hypertension, urostomy from a bladder cancer, presenting via EMS for weakness with a past 3 weeks. Her vital signs are stable upon arrival, EKG revealed no acute findings. Patient was treated 2 weeks ago for UTI with Macrobid, she does not report improvement in her symptoms. Labs today reveal a normal white count, his kidney function is within normal limits, troponin and BNP are stable. Urine does show signs of UTI with positive nitrate, 22 wbc's and bacteria. Urine culture is pending. Rapid Covid is also positive. Chest x-ray shows chronic changes and cardiomegaly with new patchy left basilar acute infiltrate. Patient will be started on IV antibiotics and brought in for UTI, failed outpatient treatment. Patient is agreeable with this plan of care. Patient accepted by Dr. Sneed will consult pulm per Dr. Sneed, Case discussed with Dr. Nguyen. - Lab Data Result diagrams: 09/06/21 11:43 09/06/21 11:43 Lab Results 09/06/21 09/06/21 09/06/21 Range/Units 11:43 11:43 11:43 WBC 4.0 (3.8-10.6) k/uL RBC 4.09 (3.80-5.40) m/uL Hgb 10.9 L (11.4-16.0) gm/dL Hct 33.4 L (34.0-46.0) % MCV 81.7 (80.0-100.0) fL MCH 26.7 (25.0-35.0) pg MCHC 32.6 (31.0-37.0) g/dL RDW 14.5 (11.5-15.5) % Plt Count 211 (150-450) k/uL MPV 8.1 Neutrophils % 82 % Lymphocytes % 11 % Monocytes % 5 % Eosinophils % 0 % Basophils % 1 % Neutrophils # 3.3 (1.3-7.7) k/uL Lymphocytes # 0.4 L (1.0-4.8) k/uL Monocytes # 0.2 (0-1.0) k/uL Eosinophils # 0.0 (0-0.7) k/uL Basophils # 0.0 (0-0.2) k/uL Hypochromasia Slight Poikilocytosis Slight PT 9.7 (9.0-12.0) sec INR 0.9 (<1.2) APTT 23.1 (22.0-30.0) sec Sodium (137-145) mmol/L Potassium (3.5-5.1) mmol/L Chloride (98-107) mmol/L Carbon Dioxide (22-30) mmol/L Anion Gap mmol/L BUN (7-17) mg/dL Creatinine (0.52-1.04) mg/dL Est GFR (CKD-EPI)AfAm (>60 ml/min/1.73 sqM) Est GFR (CKD-EPI)NonAf (>60 ml/min/1.73 sqM) Glucose (74-99) mg/dL Plasma Lactic Acid Aidan (0.7-2.0) mmol/L Calcium (8.4-10.2) mg/dL Phosphorus (2.5-4.5) mg/dL Magnesium (1.6-2.3) mg/dL Total Bilirubin (0.2-1.3) mg/dL AST (14-36) U/L ALT (4-34) U/L Alkaline Phosphatase (38-126) U/L Troponin I (0.000-0.034) ng/mL NT-Pro-B Natriuret Pep pg/mL Total Protein (6.3-8.2) g/dL Albumin (3.5-5.0) g/dL Urine Color Yellow Urine Appearance Turbid H (Clear) Urine pH 8.5 H (5.0-8.0) Ur Specific [place] 1.018 (1.001-1.035) Urine Protein 3+ H (Negative) Urine Glucose (UA) Negative (Negative) Urine Ketones Negative (Negative) Urine Blood Negative (Negative) Urine Nitrite Positive H (Negative) Urine Bilirubin Negative (Negative) Urine Urobilinogen <2.0 (<2.0) mg/dL Ur Leukocyte Esterase Large H (Negative) Urine WBC 22 H (0-5) /hpf Ur Squamous Epith Cells 3 (0-4) /hpf Amorphous Sediment Many H (None) /hpf Urine Bacteria Few H (None) /hpf Coronavirus (PCR) (Not Detectd) 09/06/21 09/06/21 09/06/21 Range/Units 11:43 11:43 11:43 WBC (3.8-10.6) k/uL RBC (3.80-5.40) m/uL Hgb (11.4-16.0) gm/dL Hct (34.0-46.0) % MCV (80.0-100.0) fL MCH (25.0-35.0) pg MCHC (31.0-37.0) g/dL RDW (11.5-15.5) % Plt Count (150-450) k/uL MPV Neutrophils % % Lymphocytes % % Monocytes % % Eosinophils % % Basophils % % Neutrophils # (1.3-7.7) k/uL Lymphocytes # (1.0-4.8) k/uL Monocytes # (0-1.0) k/uL Eosinophils # (0-0.7) k/uL Basophils # (0-0.2) k/uL Hypochromasia Poikilocytosis PT (9.0-12.0) sec INR (<1.2) APTT (22.0-30.0) sec Sodium 138 (137-145) mmol/L Potassium 4.4 (3.5-5.1) mmol/L Chloride 111 H (98-107) mmol/L Carbon Dioxide 21 L (22-30) mmol/L Anion Gap 6 mmol/L BUN 16 (7-17) mg/dL Creatinine 0.92 (0.52-1.04) mg/dL Est GFR (CKD-EPI)AfAm 70 (>60 ml/min/1.73 sqM) Est GFR (CKD-EPI)NonAf 61 (>60 ml/min/1.73 sqM) Glucose 96 (74-99) mg/dL Plasma Lactic Acid Aidan 0.8 (0.7-2.0) mmol/L Calcium 8.8 (8.4-10.2) mg/dL Phosphorus 1.6 L (2.5-4.5) mg/dL Magnesium 2.5 H (1.6-2.3) mg/dL Total Bilirubin 0.4 (0.2-1.3) mg/dL AST 37 H (14-36) U/L ALT 30 (4-34) U/L Alkaline Phosphatase 164 H (38-126) U/L Troponin I <0.012 (0.000-0.034) ng/mL NT-Pro-B Natriuret Pep pg/mL Total Protein 6.3 (6.3-8.2) g/dL Albumin 3.2 L (3.5-5.0) g/dL Urine Color Urine Appearance (Clear) Urine pH (5.0-8.0) Ur Specific [place] (1.001-1.035) Urine Protein (Negative) Urine Glucose (UA) (Negative) Urine Ketones (Negative) Urine Blood (Negative) Urine Nitrite (Negative) Urine Bilirubin (Negative) Urine Urobilinogen (<2.0) mg/dL Ur Leukocyte Esterase (Negative) Urine WBC (0-5) /hpf Ur Squamous Epith Cells (0-4) /hpf Amorphous Sediment (None) /hpf Urine Bacteria (None) /hpf Coronavirus (PCR) (Not Detectd) 09/06/21 09/06/21 Range/Units 11:43 11:43 WBC (3.8-10.6) k/uL RBC (3.80-5.40) m/uL Hgb (11.4-16.0) gm/dL Hct (34.0-46.0) % MCV (80.0-100.0) fL MCH (25.0-35.0) pg MCHC (31.0-37.0) g/dL RDW (11.5-15.5) % Plt Count (150-450) k/uL MPV Neutrophils % % Lymphocytes % % Monocytes % % Eosinophils % % Basophils % % Neutrophils # (1.3-7.7) k/uL Lymphocytes # (1.0-4.8) k/uL Monocytes # (0-1.0) k/uL Eosinophils # (0-0.7) k/uL Basophils # (0-0.2) k/uL Hypochromasia Poikilocytosis PT (9.0-12.0) sec INR (<1.2) APTT (22.0-30.0) sec Sodium (137-145) mmol/L Potassium (3.5-5.1) mmol/L Chloride (98-107) mmol/L Carbon Dioxide (22-30) mmol/L Anion Gap mmol/L BUN (7-17) mg/dL Creatinine (0.52-1.04) mg/dL Est GFR (CKD-EPI)AfAm (>60 ml/min/1.73 sqM) Est GFR (CKD-EPI)NonAf (>60 ml/min/1.73 sqM) Glucose (74-99) mg/dL Plasma Lactic Acid Aidan (0.7-2.0) mmol/L Calcium (8.4-10.2) mg/dL Phosphorus (2.5-4.5) mg/dL Magnesium (1.6-2.3) mg/dL Total Bilirubin (0.2-1.3) mg/dL AST (14-36) U/L ALT (4-34) U/L Alkaline Phosphatase (38-126) U/L Troponin I (0.000-0.034) ng/mL NT-Pro-B Natriuret Pep 950 pg/mL Total Protein (6.3-8.2) g/dL Albumin (3.5-5.0) g/dL Urine Color Urine Appearance (Clear) Urine pH (5.0-8.0) Ur Specific [place] (1.001-1.035) Urine Protein (Negative) Urine Glucose (UA) (Negative) Urine Ketones (Negative) Urine Blood (Negative) Urine Nitrite (Negative) Urine Bilirubin (Negative) Urine Urobilinogen (<2.0) mg/dL Ur Leukocyte Esterase (Negative) Urine WBC (0-5) /hpf Ur Squamous Epith Cells (0-4) /hpf Amorphous Sediment (None) /hpf Urine Bacteria (None) /hpf Coronavirus (PCR) Detected A (Not Detectd) Disposition Clinical Impression: UTI (urinary tract infection), Failure of outpatient treatment, COVID-19 Disposition: ADMITTED IP TO THIS HOSP Condition: Stable Referrals: Nita Rice MD [Primary Care Provider] - 1-2 days Decision Date: 09/06/21 Decision Time: 14:07
[2021-09-06] MEDS ORDERED: cefTRIAXone IN SWFI 1,000 MG/10 ML SYRINGE IVP STA (14:10)
[2021-09-06] MEDS: SODIUM CHLORIDE 0.9% 1,000 ML IV SCH (14:19)
[2021-09-06] MEDS ORDERED: traMADol 50 MG TAB PO PRN (16:02)
[2021-09-06] MEDS ORDERED: MECLIZINE 25 MG TAB PO PRN (16:02)
[2021-09-06] MEDS ORDERED: MELATONIN 5 MG TABLET PO PRN (16:02)
[2021-09-06] MEDS ORDERED: ZOLPIDEM 10 MG TAB PO PRN (16:02)
--- NOTE | 2021-09-06 19:33 | P.CNPUL ---
History of Present Illness Consult date: 09/06/21 Requesting physician: Baldemar Sneed Reason for consult: other (CoVID infection) Chief complaint: Generalized weakness, cough congestion for 3 weeks History of present illness: This is a 75-year-old female patient who follows with Dr. Mcdaniel as her primary care physician. She has history hypertension, atrial fibrillation, bladder cancer with urostomy, hypertension, pacemaker implantation, former smoker. She presented to the ER earlier today with complaints of 3 weeks history of generalized weakness and fatigue. She felt she may have a urinary tract infection. Chest x-ray revealed chronic changes and cardiomegaly with a new patchy left basilar infiltrate/atelectasis. White count 4.0. Hemoglobin 10.9. Leukocyte 0.4. Sodium 138. Potassium 4.4. Creatinine 0.92. Troponin negative. ProBNP 950. Urinalysis with positive nitrates and many WBCs. Current virus by PCR detected. She is seen today on the regular medical floor. She is currently resting comfortably in bed. Awake and alert. Quite hard of hearing. She is maintaining good O2 saturations in the mid 90s on room air. She's afebrile. Hemodynamically stable. She's been initiated on ceftriaxone. Review of Systems REVIEW OF SYSTEMS: CONSTITUTIONAL: Generalized weakness, fatigue. Denies any recent significant weight loss or weight gain. EYES: Denies change in vision. EARS, NOSE, MOUTH, THROAT: Denies headaches, denies sore throat. CARDIOVASCULAR: Denies chest pain, palpitations or syncopal episodes. RESPIRATORY: Denies shortness of breath, cough, congestion or hemoptysis. GASTROINTESTINAL: Denies change in appetite, denies abdominal pain GENITOURINARY: Denies hematuria, denies infections. MUSKULOSKELETAL: Denies pain, denies swelling. INTEGUMENTARY: Denies rash, denies eczema. NEUROLOGICAL: Denies recent memory loss, no recent seizure activity. PSYCHIATRIC: Denies anxiety, denies depression. HEMATOLOGIC/LYMPHATIC: Denies anemia, denies enlarged lymph nodes. Past Medical History Past Medical History: Atrial Fibrillation, Cancer, GERD/Reflux, Hypertension, Osteoarthritis (OA) Additional Past Medical History / Comment(s): bladder cancer with urostomy, Small Bowel Obstruction, vertigo History of Any Multi-Drug Resistant Organisms: None Reported Past Surgical History: Ablation, Bladder Surgery, Heart Catheterization, Hernia Repair, Hysterectomy, Orthopedic Surgery, Pacemaker, Tonsillectomy Additional Past Surgical History / Comment(s): LEFT HIP SURGERY x 5, GRAFTS AND MARNIE 2015, ablasion CARDIOVERSION, urostomy 10/2010, cataracts 2018 Past Anesthesia/Blood Transfusion Reactions: Previous Problems w/ Anesthesia Additional Past Anesthesia/Blood Transfusion Reaction / Comment(s): asthma attack Type of Cardiac Device: Permanent Pacemaker Device Placement Date:: 2012 Past Psychological History: Anxiety Smoking Status: Former smoker Past Alcohol Use History: Occasional Past Drug Use History: None Reported - Past Family History Mother Family Medical History: Asthma, GERD/Reflux Additional Family Medical History / Comment(s): diverticulitus, glaucoma Father Family Medical History: Hyperlipidemia Additional Family Medical History / Comment(s): stroke, brain tumour Medications and Allergies Home Medications Medication Instructions Recorded Confirmed Type Omeprazole [PriLOSEC] 20 mg PO Q48H 02/05/15 09/06/21 History traMADol HCl [Ultram] 50 mg PO DAILY PRN 02/05/15 09/06/21 History Meclizine [Antivert] 25 mg PO TID PRN 09/01/16 09/06/21 History Ondansetron [Zofran] 4 mg PO BID PRN 09/01/16 09/06/21 History Potassium Chloride [K-Tab ER] 10 meq PO DAILY 09/01/16 09/06/21 History Metoprolol Tartrate [Lopressor] 25 mg PO BID #60 tab 12/21/16 09/06/21 Rx Furosemide [Lasix] 20 mg PO DAILY 10/15/19 09/06/21 History Melatonin 10 mg PO HS PRN 10/15/19 09/06/21 History Furosemide [Lasix] 40 mg PO HS 06/02/20 09/06/21 History Propafenone HCl 150 mg PO BID 06/02/20 09/06/21 History Zolpidem [Ambien] 10 mg PO HS PRN 06/02/20 09/06/21 History Aspirin EC [Ecotrin] 325 mg PO DAILY 04/25/21 09/06/21 History Magnesium 250 mg PO BID 04/25/21 09/06/21 History Ibuprofen [Motrin] 800 mg PO BID PRN 09/06/21 09/06/21 History Allergies Allergy/AdvReac Type Severity Reaction Status Date / Time ether Allergy Anaphylaxis Verified 09/06/21 12:44 formaldehyde Allergy Anaphylaxis Verified 09/06/21 12:44 tetanus and diphtheria Allergy Unknown Verified 09/06/21 12:44 toxoids [tetanus & diphtheria toxoids] codeine AdvReac Nausea Verified 09/06/21 12:44 Physical Exam Vitals: Vital Signs Temp Pulse Pulse Resp BP BP Pulse Ox 09/06/21 17:31 98.1 F 64 17 128/70 95 09/06/21 15:42 98.3 F 60 18 116/67 96 09/06/21 14:20 98.8 F 65 18 136/61 96 09/06/21 11:06 96.5 F L 71 18 118/64 93 L Intake and Output 09/06/21 09/06/21 09/06/21 06:59 14:59 22:59 Other: Weight 81.647 kg 81.647 kg GENERAL EXAM: Alert, very hard of hearing, pleasant 75-year-old female patient, on room air, comfortable in no apparent distress. HEAD: Normocephalic. EYES: Normal reaction of pupils, equal size. NOSE: Clear with pink turbinates. THROAT: No erythema or exudates. NECK: No masses, no JVD. CHEST: No chest wall deformity. LUNGS: Equal air entry with crackles in the left lung base. CVS: S1 and S2 normal with no audible murmur, regular rhythm. ABDOMEN: No hepatosplenomegaly, normal bowel sounds, no guarding or rigidity. SPINE: No scoliosis or deformity SKIN: No rashes CENTRAL NERVOUS SYSTEM: No focal deficits, tone is normal in all 4 extremities. EXTREMITIES: There is no peripheral edema. No clubbing, no cyanosis. Peripheral pulses are intact. Results - Laboratory Findings CBC and BMP: 09/06/21 11:43 09/06/21 11:43 PT/INR, D-dimer PT 9.7 sec (9.0-12.0) 09/06/21 11:43 INR 0.9 (<1.2) 09/06/21 11:43 Abnormal lab findings: Abnormal Labs 09/06/21 09/06/21 09/06/21 11:43 11:43 11:43 Hgb 10.9 L Hct 33.4 L Lymphocytes # 0.4 L Chloride 111 H Carbon Dioxide 21 L Phosphorus 1.6 L Magnesium 2.5 H AST 37 H Alkaline Phosphatase 164 H Albumin 3.2 L Urine Appearance Turbid H Urine pH 8.5 H Urine Protein 3+ H Urine Nitrite Positive H Ur Leukocyte Esterase Large H Urine WBC 22 H Amorphous Sediment Many H Urine Bacteria Few H Coronavirus (PCR) 09/06/21 11:43 Hgb Hct Lymphocytes # Chloride Carbon Dioxide Phosphorus Magnesium AST Alkaline Phosphatase Albumin Urine Appearance Urine pH Urine Protein Urine Nitrite Ur Leukocyte Esterase Urine WBC Amorphous Sediment Urine Bacteria Coronavirus (PCR) Detected A - Diagnostic Findings Chest x-ray: image reviewed Assessment and Plan Assessment: 1 Generalized weakness and fatigue suspect secondary to urinary tract infection 2 COVID-19 infection without pulmonary complaints, on room air 3 Hearing disorder 4 CHF atrial fibrillation 5 Permanent pacemaker implantation. 6 Hypertension 7 Osteoarthritis 8 History of bladder cancer with urostomy Plan: The patient was seen and evaluated by Dr. Braden Chest x-ray and labs reviewed On room air Does not require Decadron Add Lovenox, vitamin supplements Home once cleared by medicine I, the cosigning physician, performed a history & physical examination of the patient. Lungs sounds with faint crackles in the left base. Maintaining good O2 saturations in the 90s on room air. I discussed the assessment and plan of care with my nurse practitioner, Anuja Javed. I attest to the above consultation as dictated by her. Time with Patient: Greater than 30
[2021-09-06] MEDS: METOPROLOL TARTRATE 25 MG TAB PO SCH (19:53)
[2021-09-06] MEDS: PROPAFENONE 150 MG TAB PO SCH (19:53)
[2021-09-06] MEDS: MAGNESIUM OXIDE 400 MG TAB PO SCH (19:53)
[2021-09-07] MEDS: SODIUM CHLORIDE 0.9% 1,000 ML IV SCH ×2 (02:30→16:39)
[2021-09-07] MEDS: MAGNESIUM OXIDE 400 MG TAB PO SCH ×2 (10:02→20:07)
[2021-09-07] MEDS: PANTOPRAZOLE 40 MG TABLET PO SCH (10:02)
[2021-09-07] MEDS: FUROSEMIDE 20 MG TAB PO SCH (10:02)
[2021-09-07] MEDS: METOPROLOL TARTRATE 25 MG TAB PO SCH ×2 (10:02→20:06)
[2021-09-07] MEDS: PROPAFENONE 150 MG TAB PO SCH ×2 (10:03→20:06)
[2021-09-07] MEDS: ASPIRIN 325 MG TAB PO SCH (10:03)
[2021-09-07] MEDS: POTASSIUM CHLORIDE ER 10 MEQ TAB.ER.PRT PO SCH (10:03)
--- NOTE | 2021-09-07 11:09 | P.HPIM ---
History of Present Illness H&P Date: 09/06/21 Chief Complaint: Shortness of breath/weakness 75-year-old female with history of A. fib, hypertension, urostomy. Bladder cancer, presenting to the emergency department via EMS with complaints of generalized weakness over the past 3 weeks. Patient was treated for a UTI she states about 2 weeks ago, with Macrobid, she states that she continues to feel weak, no appetite and just generalized fatigue. She denies any fevers or chills, no shortness of breath or cough. She denies any chest pain, no abdominal pain. She's been having intermittent nausea, intermittent diarrhea. Patient has no further complaints. EKG Findings:: Atrial paced rhythm, no signs of acute ST segment elevation. This is similar to her previous on 10/15/2019. Ventricular rate 68, RI interval 192, QT 384. Blood work in ED reveals CBC with WBC of 4.0, hemoglobin 10.9 and hematocrit 33.4, platelets of 211; sodium 138, potassium 4.4, BUN/creatinine of 6 and/0.9; serum troponin and BNP within normal limits; UA reveals nitrates, WBCs and bacteria; chest x-ray completed and ED reveals patchy new left basilar infiltrate; patient is positive for occult blood 19 Review of Systems REVIEW OF SYSTEMS: CONSTITUTIONAL: fatigue. HEENT: No recent visual problems or hearing problems. Denied any sore throat. CARDIOVASCULAR: No chest pain, orthopnea, PND, no palpitations, no syncope. PULMONARY: shortness of breath, no cough, no hemoptysis. GASTROINTESTINAL: No diarrhea, no nausea, no vomiting, no abdominal pain. NEUROLOGICAL: No headaches, no weakness, no numbness. HEMATOLOGICAL: Denies any bleeding or petechiae. GENITOURINARY: Denies any burning micturition, frequency, or urgency. MUSCULOSKELETAL/RHEUMATOLOGICAL: Denies any joint pain, swelling, or any muscle pain. ENDOCRINE: Denies any polyuria or polydipsia. The rest of the 14-point review of systems is negative. Past Medical History Past Medical History: Atrial Fibrillation, Cancer, GERD/Reflux, Hypertension, Osteoarthritis (OA) Additional Past Medical History / Comment(s): bladder cancer with urostomy, Small Bowel Obstruction, vertigo History of Any Multi-Drug Resistant Organisms: None Reported Past Surgical History: Ablation, Bladder Surgery, Heart Catheterization, Hernia Repair, Hysterectomy, Orthopedic Surgery, Pacemaker, Tonsillectomy Additional Past Surgical History / Comment(s): LEFT HIP SURGERY x 5, GRAFTS AND MARNIE 2015, ablasion CARDIOVERSION, urostomy 10/2010, cataracts 2017 Past Anesthesia/Blood Transfusion Reactions: Previous Problems w/ Anesthesia Additional Past Anesthesia/Blood Transfusion Reaction / Comment(s): asthma attack Type of Cardiac Device: Permanent Pacemaker Device Placement Date:: 2012 Past Psychological History: Anxiety Smoking Status: Former smoker Past Alcohol Use History: Occasional Past Drug Use History: None Reported - Past Family History Mother Family Medical History: Asthma, GERD/Reflux Additional Family Medical History / Comment(s): diverticulitus, glaucoma Father Family Medical History: Hyperlipidemia Additional Family Medical History / Comment(s): stroke, brain tumour Medications and Allergies Home Medications Medication Instructions Recorded Confirmed Type Omeprazole [PriLOSEC] 20 mg PO Q48H 02/05/15 09/06/21 History traMADol HCl [Ultram] 50 mg PO DAILY PRN 02/05/15 09/06/21 History Meclizine [Antivert] 25 mg PO TID PRN 09/01/16 09/06/21 History Ondansetron [Zofran] 4 mg PO BID PRN 09/01/16 09/06/21 History Potassium Chloride [K-Tab ER] 10 meq PO DAILY 09/01/16 09/06/21 History Metoprolol Tartrate [Lopressor] 25 mg PO BID #60 tab 12/21/16 09/06/21 Rx Furosemide [Lasix] 20 mg PO DAILY 10/15/19 09/06/21 History Melatonin 10 mg PO HS PRN 10/15/19 09/06/21 History Furosemide [Lasix] 40 mg PO HS 06/02/20 09/06/21 History Propafenone HCl 150 mg PO BID 06/02/20 09/06/21 History Zolpidem [Ambien] 10 mg PO HS PRN 06/02/20 09/06/21 History Aspirin EC [Ecotrin] 325 mg PO DAILY 04/25/21 09/06/21 History Magnesium 250 mg PO BID 04/25/21 09/06/21 History Ibuprofen [Motrin] 800 mg PO BID PRN 09/06/21 09/06/21 History Allergies Allergy/AdvReac Type Severity Reaction Status Date / Time ether Allergy Anaphylaxis Verified 09/06/21 12:44 formaldehyde Allergy Anaphylaxis Verified 09/06/21 12:44 tetanus and diphtheria Allergy Unknown Verified 09/06/21 12:44 toxoids [tetanus & diphtheria toxoids] codeine AdvReac Nausea Verified 09/06/21 12:44 Physical Exam Vitals: Vital Signs Temp Pulse Resp BP Pulse Ox 09/06/21 14:20 98.8 F 65 18 136/61 96 09/06/21 11:06 96.5 F L 71 18 118/64 93 L Intake and Output 09/05/21 09/06/21 09/06/21 22:59 06:59 14:59 Other: Weight 81.647 kg PHYSICAL EXAMINATION: GENERAL: The patient is alert and oriented x3, not in any acute distress. Well developed, well nourished. HEENT: Pupils are round and equally reacting to light. EOMI. No scleral icterus. No conjunctival pallor. Normocephalic, atraumatic. No pharyngeal erythema. No thyromegaly. CARDIOVASCULAR: S1 and S2 present. No murmurs, rubs, or gallops. PULMONARY: Chest is clear to auscultation, no wheezing or crackles. ABDOMEN: Soft, nontender, nondistended, normoactive bowel sounds. No palpable organomegaly. MUSCULOSKELETAL: No joint swelling or deformity. EXTREMITIES: No cyanosis, clubbing, or pedal edema. NEUROLOGICAL: Gross neurological examination did not reveal any focal deficits. SKIN: No rashes. Results CBC & Chem 7: 09/06/21 11:43 09/06/21 11:43 Labs: Abnormal Lab Results - Last 24 Hours (Table) 09/06/21 09/06/21 09/06/21 Range/Units 11:43 11:43 11:43 Hgb 10.9 L (11.4-16.0) gm/dL Hct 33.4 L (34.0-46.0) % Lymphocytes # 0.4 L (1.0-4.8) k/uL Chloride 111 H (98-107) mmol/L Carbon Dioxide 21 L (22-30) mmol/L Phosphorus 1.6 L (2.5-4.5) mg/dL Magnesium 2.5 H (1.6-2.3) mg/dL AST 37 H (14-36) U/L Alkaline Phosphatase 164 H (38-126) U/L Albumin 3.2 L (3.5-5.0) g/dL Urine Appearance Turbid H (Clear) Urine pH 8.5 H (5.0-8.0) Urine Protein 3+ H (Negative) Urine Nitrite Positive H (Negative) Ur Leukocyte Esterase Large H (Negative) Urine WBC 22 H (0-5) /hpf Amorphous Sediment Many H (None) /hpf Urine Bacteria Few H (None) /hpf Coronavirus (PCR) (Not Detectd) 09/06/21 Range/Units 11:43 Hgb (11.4-16.0) gm/dL Hct (34.0-46.0) % Lymphocytes # (1.0-4.8) k/uL Chloride (98-107) mmol/L Carbon Dioxide (22-30) mmol/L Phosphorus (2.5-4.5) mg/dL Magnesium (1.6-2.3) mg/dL AST (14-36) U/L Alkaline Phosphatase (38-126) U/L Albumin (3.5-5.0) g/dL Urine Appearance (Clear) Urine pH (5.0-8.0) Urine Protein (Negative) Urine Nitrite (Negative) Ur Leukocyte Esterase (Negative) Urine WBC (0-5) /hpf Amorphous Sediment (None) /hpf Urine Bacteria (None) /hpf Coronavirus (PCR) Detected A (Not Detectd) Assessment and Plan Assessment: 1. Generalized weakness/UTI 2. COVID-19 infection; patient saturating above 95% on room air; reports some shortness of breath with exertion; pulmonary is consulted for further recommendations 3. Hypertension; continue with home dose of metoprolol 25 mg twice a day 4. Atrial fibrillation/PPM implantation; patient remains on propafenone 151 g twice a day, metoprolol 25 mg twice a day and aspirin 325 mg daily 5. Severe osteoarthritis; patient takes Ultram 50 mg daily as needed DVT prophylaxis; SCDs CODE STATUS; full code
[2021-09-07 11:27] LABS: Basophils # (A) 0 X 10*3/uL (0.00-0.10); Basophils % (A) 0 %; Eosinophils # (A) 0.02 X 10*3/uL (0.04-0.35); Eosinophils % (A) 0.6 %; HCT 28.6 % (37.2-46.3); HGB 8.5 g/dL (12.0-15.0); Lymphocytes # (A) 0.59 X 10*3/uL (0.90-5.00); Lymphocytes % (A) 17.7 %; MCH 25.1 pg (27.0-32.0); MCHC 29.7 g/dL (32.0-37.0); MCV 84.4 fL (80.0-97.0); Mean Platelet Volume 10.4 fL (9.5-12.2); Monocytes # (A) 0.34 X 10*3/uL (0.20-1.00); Monocytes % (A) 10.2 %; Neutrophils # (A) 2.38 X 10*3/uL (1.80-7.70); Neutrophils % (A) 71.2 %; Platelet Count 191 X 10*3/uL (140-440); RBC 3.39 X 10*6/uL (4.10-5.20); RDW 14.9 % (11.5-14.5); WBC 3.34 X 10*3/uL (4.50-10.00)
[2021-09-07 11:42] LABS: African American GFR (CKD) 85.5 (60.0-200.0); Anion Gap 8.7 mmol/L (10.00-18.00); BUN/Creat Ratio 12.56 Ratio (12.00-20.00); Blood Urea Nitrogen 9.8 mg/dL (9.0-27.0); Calcium 8.1 mg/dL (8.7-10.3); Carbon Dioxide 19.8 mmol/L (20.0-27.5); Non-African American GFR(CKD) 73.7 (60.0-200.0); Potassium 4.5 mmol/L (3.5-5.5)
--- NOTE | 2021-09-07 17:04 | P.PN ---
Subjective Progress Note Date: 09/07/21 Principal diagnosis: COVID-19 infection without significant pulmonary complaints On 09/07/2021 patient seen in follow-up on medical surgical floor. She is resting comfortably in bed, she is sitting up in the recliner, denies any worsening dyspnea, occasional cough, no phlegm production, lung sounds reveal diffuse coarse crackles bilaterally, no combines of chest pain, no phlegm production, overall her main complaint is being weak and fatigued. She remains on Rocephin for underlying urinary tract infection. Room air pulse ox is 94%, she is afebrile. Urine culture is still pending. Today's labs have been reviewed Objective - Vital Signs Vital signs: Vital Signs Temp 98.6 F 09/07/21 14:19 Pulse 57 L 09/07/21 14:19 Resp 18 09/07/21 14:19 BP 110/65 09/07/21 14:19 Pulse Ox 94 L 09/07/21 14:19 Intake & Output 09/06/21 09/07/21 09/07/21 18:59 06:59 18:59 Output Total 800 Balance -800 Weight 81.647 kg Output: Urine 800 Other: Voiding Method Toilet - Exam GENERAL EXAM: Alert, very pleasant, 75-year-old white female, room air with a pulse ox of 94%, comfortable in no apparent distress. HEAD: Normocephalic/atraumatic. EYES: Normal reaction of pupils, equal size. Conjunctiva pink, sclera white. NOSE: Clear with pink turbinates. THROAT: No erythema or exudates. NECK: No masses, no JVD, no thyroid enlargement, no adenopathy. CHEST: No chest wall deformity. Symmetrical expansion. LUNGS: Equal air entry with basilar crackles CVS: Regular rate and rhythm, normal S1 and S2, no gallops, no murmurs, no rubs ABDOMEN: Soft, nontender. No hepatosplenomegaly, normal bowel sounds, no guarding or rigidity. EXTREMITIES: No clubbing, no edema, no cyanosis, 2+ pulses and upper and lower extremities. MUSCULOSKELETAL: Muscle strength and tone normal. SPINE: No scoliosis or deformity SKIN: No rashes CENTRAL NERVOUS SYSTEM: Alert and oriented -3. No focal deficits, tone is normal in all 4 extremities. PSYCHIATRIC: Alert and oriented -3. Appropriate affect. Intact judgment and insight. - Labs CBC & Chem 7: 09/07/21 06:44 09/07/21 06:44 Labs: Abnormal Lab Results - Last 24 Hours (Table) 09/07/21 09/07/21 Range/Units 06:44 06:44 WBC 3.34 L (4.50-10.00) X 10*3/uL RBC 3.39 L (4.10-5.20) X 10*6/uL Hgb 8.5 L (12.0-15.0) g/dL Hct 28.6 L (37.2-46.3) % MCH 25.1 L (27.0-32.0) pg MCHC 29.7 L (32.0-37.0) g/dL RDW 14.9 H (11.5-14.5) % Lymphocytes # 0.59 L (0.90-5.00) X 10*3/uL Eosinophils # 0.02 L (0.04-0.35) X 10*3/uL Chloride 111 H (96-109) mmol/L Carbon Dioxide 19.8 L (20.0-27.5) mmol/L Anion Gap 8.70 L (10.00-18.00) mmol/L Calcium 8.1 L (8.7-10.3) mg/dL Microbiology - Last 24 Hours (Table) 09/06/21 11:43 Urine Culture - Preliminary Urine,Clean Catch Assessment and Plan Plan: Assessment: #1. Acute COVID-19 infection without significant pulmonary complaints, on room air, not a candidate for Decadron or Remdesivir. Chest x-ray showed chronic changes and cardiomegaly and a new patchy left basilar acute infiltrate and/or atelectasis. #2. Acute urinary tract infection, on Rocephin, urine cultures pending #3. Significant fatigue and weakness related to the above #4. Hypertension #5. Atrial fibrillation #6. Bladder cancer with urostomy #7. History of pacemaker implantation #8. Former smoker Plan: Patient remains on room air Denies any dyspnea, she does have a congested cough Obtain a follow-up chest x-ray tomorrow We will add albuterol inhaler Does not qualify for Remdesivir or Decadron Continue supportive treatment Continue antibiotics for urinary tract infection GI and DVT prophylaxis We will add prophylactic dose Lovenox We'll continue to follow her clinical course I performed a history & physical examination of the patient and discussed their management with my nurse practitioner, Loly Lebron. I reviewed the nurse practitioner's note and agree with the documented findings and plan of care. Lung sounds are positive for diminished breath sounds throughout the lung adames. The findings and the impression was discussed with the patient. I attest to the documentation by the nurse practitioner. Time with Patient: Less than 30
[2021-09-07] MEDS: ALBUTEROL HFA INHALER INHALATION SCH ×2 (17:26→20:57)
[2021-09-07] MEDS: ASCORBIC ACID 500 MG TAB PO SCH (20:06)
--- NOTE | 2021-09-07 20:29 | XR ---
EXAMINATION TYPE: XR chest 1V DATE OF EXAM: 09/07/2021 COMPARISON: Yesterday HISTORY: Short of breath TECHNIQUE: FINDINGS: There is a small patch of infiltrate at the left lung base. Thoracic aorta is atheromatous. There is some coarsening of the interstitial markings. There is left axillary pacemaker. IMPRESSION: Pulmonary mild interstitial infiltrates without change. Small infiltrate left lung base w ithout change. No heart failure.
[2021-09-08] MEDS: SODIUM CHLORIDE 0.9% 1,000 ML IV SCH ×2 (05:47→21:55)
[2021-09-08] MEDS: ALBUTEROL HFA INHALER INHALATION SCH ×4 (09:19→21:08)
[2021-09-08] MEDS: CHOLECALCIFEROL 25 MCG (1000 IU) TABLET PO SCH (10:00)
[2021-09-08] MEDS: ASPIRIN 325 MG TAB PO SCH (10:00)
[2021-09-08] MEDS: ENOXAPARIN 40 MG/0.4 ML SYRINGE SQ SCH (10:00)
[2021-09-08] MEDS: PROPAFENONE 150 MG TAB PO SCH ×2 (10:00→21:51)
[2021-09-08] MEDS: FUROSEMIDE 20 MG TAB PO SCH (10:00)
[2021-09-08] MEDS: POTASSIUM CHLORIDE ER 10 MEQ TAB.ER.PRT PO SCH (10:00)
[2021-09-08] MEDS: MAGNESIUM OXIDE 400 MG TAB PO SCH ×2 (10:00→21:48)
[2021-09-08] MEDS: METOPROLOL TARTRATE 25 MG TAB PO SCH ×2 (10:00→21:49)
[2021-09-08] MEDS: ZINC SULFATE 220 MG CAP PO SCH (10:00)
[2021-09-08] MEDS: ASCORBIC ACID 500 MG TAB PO SCH ×2 (10:00→21:49)
--- NOTE | 2021-09-08 11:26 | P.PN ---
Subjective Progress Note Date: 09/07/21 Principal diagnosis: Acute UTI COVID-19 viral infection Marked weakness/fatigue; likely related to COVID-19 infection 75-year-old female with history of A. fib, hypertension, urostomy. Bladder cancer, presenting to the emergency department via EMS with complaints of generalized weakness over the past 3 weeks. Patient was treated for a UTI she states about 2 weeks ago, with Macrobid, she states that she continues to feel weak, no appetite and just generalized fatigue. She denies any fevers or chills, no shortness of breath or cough. She denies any chest pain, no abdominal pain. She's been having intermittent nausea, intermittent diarrhea. Patient has no further complaints. EKG Findings:: Atrial paced rhythm, no signs of acute ST segment elevation. This is similar to her previous on 10/15/2019. Ventricular rate 68, OR interval 192, QT 384. Blood work in ED reveals CBC with WBC of 4.0, hemoglobin 10.9 and hematocrit 33.4, platelets of 211; sodium 138, potassium 4.4, BUN/creatinine of 6 and/0.9; serum troponin and BNP within normal limits; UA reveals nitrates, WBCs and bacteria; chest x-ray completed and ED reveals patchy new left basilar infiltrate; patient is positive for occult blood 19 08/28/2021 Patient is seen and evaluated in follow-up; remains quite weak and fatigued; denies any complaint off shortness of breath; does report a congested cough Pulmonary is following for covert 19 infection; patient is outside the window for treatment with Remdesivir; no Decadron given patient has no significant pulmonary complaints; albuterol inhaler is admitted; patient remains on subcu Lovenox Patient remains on IV antibiotics in form of Rocephin; urine culture is obtained and pending We will continue to monitor CBC and inflammatory markers periodically; pulmonary recommending repeat chest x-ray 12 morning Objective - Vital Signs Vital signs: Vital Signs Temp 99.1 F 09/07/21 08:58 Pulse 74 09/07/21 08:58 Resp 17 09/07/21 08:58 BP 133/70 09/07/21 08:58 Pulse Ox 94 L 09/07/21 08:58 Intake & Output 09/06/21 09/07/21 09/07/21 18:59 06:59 18:59 Output Total 800 Balance -800 Weight 81.647 kg Output: Urine 800 Other: Voiding Method Toilet - Exam GENERAL EXAM: Alert, very pleasant, 75-year-old white female, room air with a pulse ox of 94%, comfortable in no apparent distress. HEAD: Normocephalic/atraumatic. EYES: Normal reaction of pupils, equal size. Conjunctiva pink, sclera white. NECK: No masses, no JVD, no thyroid enlargement, no adenopathy. CHEST: No chest wall deformity. Symmetrical expansion. LUNGS: Equal air entry with basilar crackles CVS: Regular rate and rhythm, normal S1 and S2, no gallops, no murmurs, no rubs ABDOMEN: Soft, nontender. No hepatosplenomegaly, normal bowel sounds, no guarding or rigidity. EXTREMITIES: No clubbing, no edema, no cyanosis, 2+ pulses and upper and lower extremities. - Labs CBC & Chem 7: 09/07/21 06:44 09/07/21 06:44 Labs: Abnormal Lab Results - Last 24 Hours (Table) 09/06/21 09/06/21 09/06/21 Range/Units 11:43 11:43 11:43 Hgb 10.9 L (11.4-16.0) gm/dL Hct 33.4 L (34.0-46.0) % Lymphocytes # 0.4 L (1.0-4.8) k/uL Chloride 111 H (98-107) mmol/L Carbon Dioxide 21 L (22-30) mmol/L Phosphorus 1.6 L (2.5-4.5) mg/dL Magnesium 2.5 H (1.6-2.3) mg/dL AST 37 H (14-36) U/L Alkaline Phosphatase 164 H (38-126) U/L Albumin 3.2 L (3.5-5.0) g/dL Urine Appearance Turbid H (Clear) Urine pH 8.5 H (5.0-8.0) Urine Protein 3+ H (Negative) Urine Nitrite Positive H (Negative) Ur Leukocyte Esterase Large H (Negative) Urine WBC 22 H (0-5) /hpf Amorphous Sediment Many H (None) /hpf Urine Bacteria Few H (None) /hpf Coronavirus (PCR) (Not Detectd) 09/06/21 Range/Units 11:43 Hgb (11.4-16.0) gm/dL Hct (34.0-46.0) % Lymphocytes # (1.0-4.8) k/uL Chloride (98-107) mmol/L Carbon Dioxide (22-30) mmol/L Phosphorus (2.5-4.5) mg/dL Magnesium (1.6-2.3) mg/dL AST (14-36) U/L Alkaline Phosphatase (38-126) U/L Albumin (3.5-5.0) g/dL Urine Appearance (Clear) Urine pH (5.0-8.0) Urine Protein (Negative) Urine Nitrite (Negative) Ur Leukocyte Esterase (Negative) Urine WBC (0-5) /hpf Amorphous Sediment (None) /hpf Urine Bacteria (None) /hpf Coronavirus (PCR) Detected A (Not Detectd) Microbiology - Last 24 Hours (Table) 09/06/21 11:43 Urine Culture - Preliminary Urine,Clean Catch Assessment and Plan Assessment: 1. Generalized weakness/UTI 2. COVID-19 infection; patient saturating above 95% on room air; reports some shortness of breath with exertion; pulmonary is consulted for further recommendations 3. Hypertension; continue with home dose of metoprolol 25 mg twice a day 4. Atrial fibrillation/PPM implantation; patient remains on propafenone 151 g twice a day, metoprolol 25 mg twice a day and aspirin 325 mg daily 5. Severe osteoarthritis; patient takes Ultram 50 mg daily as needed DVT prophylaxis; SCDs CODE STATUS; full code
[2021-09-08 12:00] LABS: C Reactive Protein 9.1 mg/dL (0.00-0.80)
--- NOTE | 2021-09-08 17:46 | P.PN ---
Subjective Progress Note Date: 09/08/21 Principal diagnosis: COVID-19 infection The patient is seen today 09/08/2021 in follow-up on the regular medical floor. She is currently resting fairly comfortably in bed. She is awake and alert in no acute distress. She is maintaining good O2 saturations in the 90s on room a ir. Chest x-ray does not show any significant pneumonia. d-dimer 1.48 LDH 2.43. C-reactive protein 9.10. She is on ceftriaxone for UTI secondary to Providencia rettgeri. Objective - Vital Signs Vital signs: Vital Signs Temp 98.2 F 09/08/21 14:12 Pulse 63 09/08/21 14:12 Resp 18 09/08/21 14:12 BP 120/70 09/08/21 14:12 Pulse Ox 93 L 09/08/21 14:59 Intake & Output 09/07/21 09/08/21 09/08/21 18:59 06:59 18:59 Output Total 900 1000 Balance -900 -1000 Output: Urine 900 1000 Other: Voiding Method Toilet Ileal Conduit (Right) # Voids 3 - Exam GENERAL EXAM: Alert, very pleasant, 75-year-old female, room air with a pulse ox of 93%, comfortable in no apparent distress. HEAD: Normocephalic/atraumatic. EYES: Normal reaction of pupils, equal size. Conjunctiva pink, sclera white. NOSE: Clear with pink turbinates. THROAT: No erythema or exudates. NECK: No masses, no JVD, no thyroid enlargement, no adenopathy. CHEST: No chest wall deformity. Symmetrical expansion. LUNGS: Equal air entry with faint basilar crackles CVS: Regular rate and rhythm, normal S1 and S2, no gallops, no murmurs, no rubs ABDOMEN: Soft, nontender. No hepatosplenomegaly, normal bowel sounds, no guarding or rigidity. EXTREMITIES: No clubbing, no edema, no cyanosis, 2+ pulses and upper and lower extremities. MUSCULOSKELETAL: Muscle strength and tone normal. SPINE: No scoliosis or deformity SKIN: No rashes CENTRAL NERVOUS SYSTEM: No focal deficits, tone is normal in all 4 extremities. PSYCHIATRIC: Alert and oriented -3. Appropriate affect. Intact judgment and insight. - Labs CBC & Chem 7: 09/07/21 06:44 11/27/21 06:44 Labs: Abnormal Lab Results - Last 24 Hours (Table) 09/08/21 09/08/21 Range/Units 07:24 07:24 D-Dimer 1.48 H (<0.60) mg/L FEU C-Reactive Protein 9.10 H (0.00-0.80) mg/dL Microbiology - Last 24 Hours (Table) 09/06/21 11:43 Urine Culture - Final Urine,Clean Catch Providencia rettgeri Assessment and Plan Assessment: 1 Generalized weakness and fatigue suspect secondary to urinary tract infection secondary to Providencia rettgeri. On ceftriaxone 2 COVID-19 infection without pulmonary complaints, on room air 3 Hearing disorder 4 CHF atrial fibrillation 5 Permanent pacemaker implantation. 6 Hypertension 7 Osteoarthritis 8 History of bladder cancer with urostomy Plan: The patient was seen and evaluated by Dr. Sampson Kearney from the pulmonary standpoint On room air, does not require Decadron Continue Lovenox, vitamin supplements I, the cosigning physician, performed a history & physical examination of the patient. Lungs sounds with faint crackles in the left base. Maintaining good O2 saturations in the 90s on room air. I discussed the assessment and plan of care with my nurse practitioner, Anuja Javed. I attest to the above note as dictated by her.
--- NOTE | 2021-09-08 19:56 | P.PN ---
Subjective Progress Note Date: 09/08/21 Principal diagnosis: Acute UTI COVID-19 viral infection Marked weakness/fatigue; likely related to COVID-19 infection 75-year-old female with history of A. fib, hypertension, urostomy. Bladder cancer, presenting to the emergency department via EMS with complaints of generalized weakness over the past 3 weeks. Patient was treated for a UTI she states about 2 weeks ago, with Macrobid, she states that she continues to feel weak, no appetite and just generalized fatigue. She denies any fevers or chills, no shortness of breath or cough. She denies any chest pain, no abdominal pain. She's been having intermittent nausea, intermittent diarrhea. Patient has no further complaints. EKG Findings:: Atrial paced rhythm, no signs of acute ST segment elevation. This is similar to her previous on 10/15/2019. Ventricular rate 68, IA interval 192, QT 384. Blood work in ED reveals CBC with WBC of 4.0, hemoglobin 10.9 and hematocrit 33.4, platelets of 211; sodium 138, potassium 4.4, BUN/creatinine of 6 and/0.9; serum troponin and BNP within normal limits; UA reveals nitrates, WBCs and bacteria; chest x-ray completed and ED reveals patchy new left basilar infiltrate; patient is positive for occult blood 19 09/07/2021 Patient is seen and evaluated in follow-up; remains quite weak and fatigued; denies any complaint off shortness of breath; does report a congested cough Pulmonary is following for covert 19 infection; patient is outside the window for treatment with Remdesivir; no Decadron given patient has no significant pulmonary complaints; albuterol inhaler is admitted; patient remains on subcu Lovenox Patient remains on IV antibiotics in form of Rocephin; urine culture is obtained and pending We will continue to monitor CBC and inflammatory markers periodically; pulmonary recommending repeat chest x-ray 12 morning 09/08/2021 Patient is seen and evaluated resting comfortably in bed; report some improvement in breathing Vital signs are reviewed and reveal temperature of 98.2, pulse 63, respiration 18 and blood pressure 120/70 with O2 saturation of 93% Chest x-ray does not show any significant pneumonia. d-dimer 1.48 LDH 2.43. C- reactive protein 9.10. She is on ceftriaxone for UTI secondary to Providencia rettgeri. Labs reviewed from yesterday WBC 3.34, hemoglobin 8.5, platelet count of 191, sodium 139, potassium 4.5, BUN/creatinine of 9.8/0.8 Objective - Vital Signs Vital signs: Vital Signs Temp 99 F 09/08/21 09:03 Pulse 67 09/08/21 09:03 Resp 17 09/08/21 09:03 BP 118/74 09/08/21 09:03 Pulse Ox 94 L 09/08/21 09:03 Intake & Output 09/07/21 09/08/21 09/08/21 18:59 06:59 18:59 Output Total 900 Balance -900 Output: Urine 900 Other: Voiding Method Toilet Ileal Conduit (Right) # Voids 3 - Exam GENERAL EXAM: Alert, very pleasant, 75-year-old white female, room air with a pulse ox of 94%, comfortable in no apparent distress. HEAD: Normocephalic/atraumatic. EYES: Normal reaction of pupils, equal size. Conjunctiva pink, sclera white. NECK: No masses, no JVD, no thyroid enlargement, no adenopathy. CHEST: No chest wall deformity. Symmetrical expansion. LUNGS: Equal air entry with basilar crackles CVS: Regular rate and rhythm, normal S1 and S2, no gallops, no murmurs, no rubs ABDOMEN: Soft, nontender. No hepatosplenomegaly, normal bowel sounds, no guarding or rigidity. EXTREMITIES: No clubbing, no edema, no cyanosis, 2+ pulses and upper and lower extremities. - Labs CBC & Chem 7: 09/07/21 06:44 09/07/21 06:44 Labs: Abnormal Lab Results - Last 24 Hours (Table) 09/07/21 09/07/21 09/08/21 Range/Units 06:44 06:44 07:24 WBC 3.34 L (4.50-10.00) X 10*3/uL RBC 3.39 L (4.10-5.20) X 10*6/uL Hgb 8.5 L (12.0-15.0) g/dL Hct 28.6 L (37.2-46.3) % MCH 25.1 L (27.0-32.0) pg MCHC 29.7 L (32.0-37.0) g/dL RDW 14.9 H (11.5-14.5) % Lymphocytes # 0.59 L (0.90-5.00) X 10*3/uL Eosinophils # 0.02 L (0.04-0.35) X 10*3/uL D-Dimer 1.48 H (<0.60) mg/L FEU Chloride 111 H (96-109) mmol/L Carbon Dioxide 19.8 L (20.0-27.5) mmol/L Anion Gap 8.70 L (10.00-18.00) mmol/L Calcium 8.1 L (8.7-10.3) mg/dL Microbiology - Last 24 Hours (Table) 09/06/21 11:43 Urine Culture - Preliminary Urine,Clean Catch Gram Neg Bacilli Assessment and Plan Assessment: 1. Generalized weakness/UTI 2. COVID-19 infection; patient saturating above 95% on room air; reports some shortness of breath with exertion; pulmonary is consulted for further recommendations 3. Hypertension; continue with home dose of metoprolol 25 mg twice a day 4. Atrial fibrillation/PPM implantation; patient remains on propafenone 151 g twice a day, metoprolol 25 mg twice a day and aspirin 325 mg daily 5. Severe osteoarthritis; patient takes Ultram 50 mg daily as needed DVT prophylaxis; SCDs CODE STATUS; full code
[2021-09-09] MEDS: ALBUTEROL HFA INHALER INHALATION SCH ×4 (08:09→20:53)
[2021-09-09] MEDS: ENOXAPARIN 40 MG/0.4 ML SYRINGE SQ SCH (08:09)
[2021-09-09] MEDS: ASPIRIN 325 MG TAB PO SCH (08:10)
[2021-09-09] MEDS: FUROSEMIDE 20 MG TAB PO SCH (08:10)
[2021-09-09] MEDS: ZINC SULFATE 220 MG CAP PO SCH (08:10)
[2021-09-09] MEDS: POTASSIUM CHLORIDE ER 10 MEQ TAB.ER.PRT PO SCH (08:10)
[2021-09-09] MEDS: MAGNESIUM OXIDE 400 MG TAB PO SCH ×2 (08:10→20:46)
[2021-09-09] MEDS: PROPAFENONE 150 MG TAB PO SCH ×2 (08:10→20:46)
[2021-09-09] MEDS: CHOLECALCIFEROL 25 MCG (1000 IU) TABLET PO SCH (08:10)
[2021-09-09] MEDS: PANTOPRAZOLE 40 MG TABLET PO SCH (08:10)
[2021-09-09] MEDS: ASCORBIC ACID 500 MG TAB PO SCH ×2 (08:10→20:46)
[2021-09-09] MEDS: METOPROLOL TARTRATE 25 MG TAB PO SCH ×2 (08:10→20:46)
[2021-09-09] MEDS: SODIUM CHLORIDE 0.9% 1,000 ML IV SCH (08:11)
--- NOTE | 2021-09-09 13:26 | P.PN ---
Subjective Progress Note Date: 09/09/21 On today's evaluation of 09/08/2021, seeing the patient for a follow-up. This is a 75-year-old female patient with COVID 19 related infection, nevertheless, the patient was not having any respiratory distress and the patient's pulse ox was 94% on room air oxygen. She does have an underlying urinary tract infection. The patient has history of bladder cancer and the patient has a urostomy in place. The patient also has history of chronic atrial fibrillation, hypertension, history of pacemaker insertion and she is a former smoker. She presented to us with 3 week history of generalized fatigue and weakness. Her urine culture was positive for procidentia and the patient is currently on IV Rocephin. She is afebrile. She is hemodynamically stable. The most recent chest x-ray from 09/07/2021 showed some mild interstitial infiltrates that have been present without any significant interval change. No significant cough or sputum production. She did have a bout of emesis today. She is on no steroids. She is taken Lovenox 40 mg subcu for DVT prophylaxis. Objective - Vital Signs Vital signs: Vital Signs Temp 98.5 F 09/09/21 10:00 Pulse 60 09/09/21 10:00 Resp 16 09/09/21 10:00 BP 129/73 09/09/21 10:00 Pulse Ox 93 L 09/09/21 10:00 Intake & Output 09/08/21 09/09/21 09/09/21 18:59 06:59 18:59 Output Total 1000 650 Balance -1000 -650 Output: Urine 1000 650 Other: Voiding Method Ileal Conduit (Right) - Exam GENERAL EXAM: Alert, very pleasant, 75-year-old female, room air with a pulse ox of 93%, comfortable in no apparent distress. HEAD: Normocephalic/atraumatic. EYES: Normal reaction of pupils, equal size. Conjunctiva pink, sclera white. NOSE: Clear with pink turbinates. THROAT: No erythema or exudates. NECK: No masses, no JVD, no thyroid enlargement, no adenopathy. CHEST: No chest wall deformity. Symmetrical expansion. LUNGS: Equal air entry with faint basilar crackles CVS: Regular rate and rhythm, normal S1 and S2, no gallops, no murmurs, no rubs ABDOMEN: Soft, nontender. No hepatosplenomegaly, normal bowel sounds, no guarding or rigidity. EXTREMITIES: No clubbing, no edema, no cyanosis, 2+ pulses and upper and lower extremities. MUSCULOSKELETAL: Muscle strength and tone normal. SPINE: No scoliosis or deformity SKIN: No rashes CENTRAL NERVOUS SYSTEM: No focal deficits, tone is normal in all 4 extremities. PSYCHIATRIC: Alert and oriented -3. Appropriate affect. Intact judgment and insight. - Labs CBC & Chem 7: 09/07/21 06:44 09/07/21 06:44 Labs: Microbiology - Last 24 Hours (Table) 09/06/21 11:43 Urine Culture - Final Urine,Clean Catch Providencia rettgeri Assessment and Plan Plan: 1 Generalized weakness and fatigue suspect secondary to urinary tract infection secondary to Providencia rettgeri. On ceftriaxone. No signs of any septicemia and the patient is hemodynamically stable. The patient is afebrile. 2 COVID-19 infection without pulmonary complaints, on room air, no interval worsening in her oxygenation in this patient. The patient remains on a beta oxygen and patient's pulse ox is around 93%. 3 Hearing disorder 4 CHF and history of chronic atrial fibrillation 5 Permanent pacemaker implantation. 6 Hypertension 7 Osteoarthritis 8 History of bladder cancer with urostomy Plan: Continue IV Rocephin regarding UTI Stable from the pulmonary standpoint On room air, does not require Decadron Continue Lovenox, vitamin supplements I'm going to sign off on this patient and contact me back should there be any change in her condition.
[2021-09-09] MEDS: ONDANSETRON 4 MG TAB PO PRN (18:23)
--- NOTE | 2021-09-09 23:45 | P.PN ---
Subjective Progress Note Date: 09/09/21 Acute UTI COVID-19 viral infection Marked weakness/fatigue; likely related to COVID-19 infection 75-year-old female with history of A. fib, hypertension, urostomy. Bladder cancer, presenting to the emergency department via EMS with complaints of generalized weakness over the past 3 weeks. Patient was treated for a UTI she states about 2 weeks ago, with Macrobid, she states that she continues to feel weak, no appetite and just generalized fatigue. She denies any fevers or chills, no shortness of breath or cough. She denies any chest pain, no abdominal pain. She's been having intermittent nausea, intermittent diarrhea. Patient has no further complaints. EKG Findings:: Atrial paced rhythm, no signs of acute ST segment elevation. This is similar to her previous on 10/15/2019. Ventricular rate 68, DE interval 192, QT 384. Blood work in ED reveals CBC with WBC of 4.0, hemoglobin 10.9 and hematocrit 33.4, platelets of 211; sodium 138, potassium 4.4, BUN/creatinine of 6 and/0.9; serum troponin and BNP within normal limits; UA reveals nitrates, WBCs and bacteria; chest x-ray completed and ED reveals patchy new left basilar infiltrate; patient is positive for occult blood 19 09/07/2021 Patient is seen and evaluated in follow-up; remains quite weak and fatigued; denies any complaint off shortness of breath; does report a congested cough Pulmonary is following for covert 19 infection; patient is outside the window for treatment with Remdesivir; no Decadron given patient has no significant pulmonary complaints; albuterol inhaler is admitted; patient remains on subcu Lovenox Patient remains on IV antibiotics in form of Rocephin; urine culture is obtained and pending We will continue to monitor CBC and inflammatory markers periodically; pulmonary recommending repeat chest x-ray 12 morning 09/08/2021 Patient is seen and evaluated resting comfortably in bed; report some impr ovement in breathing Vital signs are reviewed and reveal temperature of 98.2, pulse 63, respiration 18 and blood pressure 120/70 with O2 saturation of 93% Chest x-ray does not show any significant pneumonia. d-dimer 1.48 LDH 2.43. C- reactive protein 9.10. She is on ceftriaxone for UTI secondary to Providencia rettgeri. Labs reviewed from yesterday WBC 3.34, hemoglobin 8.5, platelet count of 191, sodium 139, potassium 4.5, BUN/creatinine of 9.8/0.8 09/09/2021 Patient is seen in follow up today and currently sitting up in the chair. Patient is being monitored with Covid 19 and uti with cultures finalizing showing providencia rettgeri and maintained on ceftriaxone and will continue for now. Patient denies and further pain or burning with urination. Patient is having weakness and will have PT/OT evaluate the patient for possible ECF. Patient will not require any further antibiotics on discharge. Patient is on room air and denies any chest pain or worsening shortness of breath. Mild tez rtness of breath with exertion. Review of systems: Constitutional: Reports of fatigue, no reports of fever or chills Cardiology: No reports of chest pain or palpitations Respiratory: no reports of worsening shortness but with continued dyspnea with exertion GI: no reports of nausea, vomiting, or diarrhea : no reports of burning or dysuria with urination Neurovascular: Reports generalized weakness Active Medications Acetaminophen (Acetaminophen Tab 325 Mg Tab) 650 mg PO Q6HR PRN PRN Reason: Mild Pain or Fever > 100.5 Albuterol Sulfate (Albuterol Hfa Inhaler) 1 puff INHALATION RT-QID [facility] Last Admin: 09/09/21 20:53 Dose: 1 puff Documented by: Ascorbic Acid (Ascorbic Acid 500 Mg Tab) 500 mg PO BID [facility] Last Admin: 09/09/21 20:46 Dose: 500 mg Documented by: Aspirin (Aspirin 325 Mg Tab) 325 mg PO DAILY [facility] Last Admin: 09/09/21 08:10 Dose: 325 mg Documented by: Cholecalciferol (Cholecalciferol 25 Mcg (1000 Iu) Tablet) 50 mcg PO DAILY [facility] Last Admin: 09/09/21 08:10 Dose: 50 mcg Documented by: Enoxaparin Sodium (Enoxaparin 40 Mg/0.4 Ml Syringe) 40 mg SQ DAILY [facility] Last Admin: 09/09/21 08:09 Dose: 40 mg Documented by: Furosemide (Furosemide 20 Mg Tab) 20 mg PO DAILY [facility] Last Admin: 09/09/21 08:10 Dose: 20 mg Documented by: Sodium Chloride (Saline 0.9%) 1,000 mls @ 75 mls/hr IV .[id number] [facility] Last Admin: 09/09/21 08:11 Dose: 75 mls/hr Documented by: Ibuprofen (Ibuprofen 400 Mg Tab) 400 mg PO Q6HR PRN PRN Reason: Mild Pain or Fever > 100.5 Magnesium Oxide (Magnesium Oxide 400 Mg Tab) 400 mg PO BID [facility] Last Admin: 09/09/21 20:46 Dose: 400 mg Documented by: Meclizine HCl (Meclizine 25 Mg Tab) 25 mg PO TID PRN PRN Reason: Vertigo Melatonin (Melatonin 5 Mg Tablet) 10 mg PO HS PRN PRN Reason: Insomnia Last Admin: 09/09/21 20:45 Dose: 10 mg Documented by: Metoprolol Tartrate (Metoprolol Tartrate 25 Mg Tab) 25 mg PO BID [facility] Last Admin: 09/09/21 20:46 Dose: 25 mg Documented by: Naloxone HCl (Naloxone 0.4 Mg/Ml 1 Ml Vial) 0.2 mg IV Q2M PRN PRN Reason: Opioid Reversal Ondansetron HCl (Ondansetron 4 Mg Tab) 4 mg PO Q8HR PRN PRN Reason: Nausea And Vomiting Last Admin: 09/09/21 18:23 Dose: 4 mg Documented by: Pantoprazole Sodium (Pantoprazole 40 Mg Tablet) 40 mg PO Q48H [facility] Last Admin: 09/09/21 08:10 Dose: 40 mg Documented by: Potassium Chloride (Potassium Chloride Er 10 Meq Tab.Er.Prt) 10 meq PO DAILY [facility] Last Admin: 09/09/21 08:10 Dose: 10 meq Documented by: Propafenone HCl (Propafenone 150 Mg Tab) 150 mg PO BID [facility] Last Admin: 09/09/21 20:46 Dose: 150 mg Documented by: Tramadol HCl (Tramadol 50 Mg Tab) 50 mg PO DAILY PRN PRN Reason: Pain Zinc Sulfate (Zinc Sulfate 220 Mg Cap) 220 mg PO DAILY [facility] Last Admin: 09/09/21 08:10 Dose: 220 mg Documented by: Zolpidem Tartrate (Zolpidem 10 Mg Tab) 10 mg PO HS PRN PRN Reason: Insomnia Physical exam: GENERAL EXAM: Alert, very pleasant, 75-year-old white female, room air with a pulse ox of 94%, comfortable in no apparent distress. HEAD: Normocephalic/atraumatic. EYES: Normal reaction of pupils, equal size. Conjunctiva pink, sclera white. NECK: No masses, no JVD, no thyroid enlargement, no adenopathy. CHEST: No chest wall deformity. Symmetrical expansion. LUNGS: diminished breath sounds with some scattered rhonchi noted CVS: Regular rate and rhythm, S1 and [id number] ABDOMEN: Soft, nontender. No hepatosplenomegaly, normal bowel sounds, no guarding or rigidity. EXTREMITIES: No clubbing, no edema, no cyanosis, 2+ pulses and upper and lower extremities. Assessment: -Generalized weakness/UTI -COVID-19 infection; patient saturating above 94% on room air; reports some shortness of breath with exertion as patient was up with assist to the couch and back from the bed; pulmonary following -Hypertension; continue with home dose of metoprolol 25 mg twice a day -Atrial fibrillation/PPM implantation; patient remains on propafenone 151 g twice a day, metoprolol 25 mg twice a day and aspirin 325 mg daily -Severe osteoarthritis; patient takes Ultram 50 mg daily as needed -DVT prophylaxis; SCDs -Full code Plan: Encouraged increased activity as tolerated and continue with incentive spirometer use. Continue current medications. Patient has remained on room air. Continue rocephin for now and will not require more than 5 day treatment and will discontinue in 2 days to complete the course. Patient to be evaluated by PT/OT for possible ECF placement. social work following. Possible discharge in 24-48 hours as placement would have to be a [facility] E[facility]. Objective - Vital Signs Vital signs: Vital Signs Temp 98.3 F 09/09/21 06:50 Pulse 66 09/09/21 06:50 Resp 18 09/09/21 02:00 BP 134/75 09/09/21 06:50 Pulse Ox 94 L 09/09/21 08:11 Intake & Output 09/08/21 09/09/21 09/09/21 18:59 06:59 18:59 Output Total 1000 650 Balance -1000 -650 Output: Urine 1000 650 Other: Voiding Method Ileal Conduit (Right) - Labs CBC & Chem 7: 09/07/21 06:44 09/07/21 06:44 Labs: Abnormal Lab Results - Last 24 Hours (Table) 09/08/21 Range/Units 07:24 C-Reactive Protein 9.10 H (0.00-0.80) mg/dL Microbiology - Last 24 Hours (Table) 09/06/21 11:43 Urine Culture - Final Urine,Clean Catch Providencia rettgeri
[2021-09-10] MEDS: SODIUM CHLORIDE 0.9% 1,000 ML IV SCH ×2 (01:18→13:05)
[2021-09-10] MEDS: PROPAFENONE 150 MG TAB PO SCH (08:05)
[2021-09-10] MEDS: CHOLECALCIFEROL 25 MCG (1000 IU) TABLET PO SCH (08:05)
[2021-09-10] MEDS: ZINC SULFATE 220 MG CAP PO SCH (08:06)
[2021-09-10] MEDS: ASPIRIN 325 MG TAB PO SCH (08:06)
[2021-09-10] MEDS: METOPROLOL TARTRATE 25 MG TAB PO SCH (08:06)
[2021-09-10] MEDS: FUROSEMIDE 20 MG TAB PO SCH (08:06)
[2021-09-10] MEDS: POTASSIUM CHLORIDE ER 10 MEQ TAB.ER.PRT PO SCH (08:06)
[2021-09-10] MEDS: ASCORBIC ACID 500 MG TAB PO SCH (08:06)
[2021-09-10] MEDS: MAGNESIUM OXIDE 400 MG TAB PO SCH (08:06)
[2021-09-10] MEDS: ENOXAPARIN 40 MG/0.4 ML SYRINGE SQ SCH (08:06)
[2021-09-10] MEDS: ALBUTEROL HFA INHALER INHALATION SCH ×2 (09:27→12:30)
[2021-09-10] MEDS: ONDANSETRON 4 MG TAB PO PRN (11:05)
--- NOTE | 2021-09-10 12:07 | P.DS ---
Providers Date of admission: 09/06/21 13:36 Expected date of discharge: 09/10/21 Attending physician: Baldemar Sneed MD Consults: 09/06/21 14:09 Consult Physician Urgent Consulting Provider: Segundo Braden Consult Reason/Comments: covid + Do you want consulting provider notified?: Yes Primary care physician: Krystal Moya Hospital Course: Final diagnosis -Generalized weakness/UTI -COVID-19 infection; patient saturating above 94% on room air; reports some shortness of breath with exertion as patient was up with assist to the couch and back from the bed; pulmonary following -Hypertension; continue with home dose of metoprolol 25 mg twice a day -Atrial fibrillation/PPM implantation; patient remains on propafenone 151 g twice a day, metoprolol 25 mg twice a day and aspirin 325 mg daily -Severe osteoarthritis; patient takes Ultram 50 mg daily as needed -DVT prophylaxis; SCDs -Full code Discharge disposition Patient is being discharged in a stable condition with guarded prognosis to [facility] for continued PT/OT therapy. Patient will follow-up with Dr. Rice in the outpatient setting upon discharge. Patient is to continue with vitamin and zinc supplements on discharge . Total time taken is greater than 35 minutes. Hospital course Acute UTI COVID-19 viral infection Marked weakness/fatigue; likely related to COVID-19 infection 75-year-old female with history of A. fib, hypertension, urostomy. Bladder cancer, presenting to the emergency department via EMS with complaints of generalized weakness over the past 3 weeks. Patient was treated for a UTI she states about 2 weeks ago, with Macrobid, she states that she continues to feel weak, no appetite and just generalized fatigue. She denies any fevers or chills, no shortness of breath or cough. She denies any chest pain, no abdominal pain. She's been having intermittent nausea, intermittent diarrhea. Patient has no further complaints. EKG Findings:: Atrial paced rhythm, no signs of acute ST segment elevation. This is similar to her previous on 10/15/2019. Ventricular rate 68, NC interval 192, QT 384. Blood work in ED reveals CBC with WBC of 4.0, hemoglobin 10.9 and hematocrit 33.4, platelets of 211; sodium 138, potassium 4.4, BUN/creatinine of 6 and/0.9; serum troponin and BNP within normal limits; UA reveals nitrates, WBCs and bacteria; chest x-ray completed and ED reveals patchy new left basilar infiltrate; patient is positive for occult blood 19 09/07/2021 Patient is seen and evaluated in follow-up; remains quite weak and fatigued; denies any complaint off shortness of breath; does report a congested cough Pulmonary is following for covert 19 infection; patient is outside the window for treatment with Remdesivir; no Decadron given patient has no significant pulmonary complaints; albuterol inhaler is admitted; patient remains on subcu Lovenox Patient remains on IV antibiotics in form of Rocephin; urine culture is obtained and pending We will continue to monitor CBC and inflammatory markers periodically; pulmonary recommending repeat chest x-ray 12 morning 09/08/2021 Patient is seen and evaluated resting comfortably in bed; report some improvement in breathing Vital signs are reviewed and reveal temperature of 98.2, pulse 63, respiration 18 and blood pressure 120/70 with O2 saturation of 93% Chest x-ray does not show any significant pneumonia. d-dimer 1.48 LDH 2.43. C- reactive protein 9.10. She is on ceftriaxone for UTI secondary to Providencia rettgeri. Labs reviewed from yesterday WBC 3.34, hemoglobin 8.5, platelet count of 191, sodium 139, potassium 4.5, BUN/creatinine of 9.8/0.8 09/09/2021 Patient is seen in follow up today and currently sitting up in the chair. Patient is being monitored with Covid 19 and uti with cultures finalizing showing providencia rettgeri and maintained on ceftriaxone and will continue for now. Patient denies and further pain or burning with urination. Patient is having weakness and will have PT/OT evaluate the patient for possible ECF. Patient will not require any further antibiotics on discharge. Patient is on room air and denies any chest pain or worsening shortness of breath. Mild shortness of breath with exertion. 09/10/2021 Patient is seen in follow-up this morning no acute overnight issues. Patient has been accepted at the [facility] and will be discharged today. patient to continue with vitamin and zinc supplements and patient was also treated for urinary tract infection and has received 5 days of IV antibiotics. Patient will not require antibiotics on discharge. Currently no reports of chest pain, shortness of breath, or palpitations. Patient is afebrile. No reports of nausea or vomiting and patient is tolerating diet. Patient will be going to [facility] today. Physical exam: GENERAL EXAM: Alert, very pleasant, 75-year-old white female, room air with a pulse ox of 94%, comfortable in no apparent distress. HEAD: Normocephalic/atraumatic. EYES: Normal reaction of pupils, equal size. Conjunctiva pink, sclera white. NECK: No masses, no JVD, no thyroid enlargement, no adenopathy. CHEST: No chest wall deformity. Symmetrical expansion. LUNGS: diminished breath sounds with some scattered rhonchi noted CVS: Regular rate and rhythm, S1 and [id number] ABDOMEN: Soft, nontender. No hepatosplenomegaly, normal bowel sounds, no guarding or rigidity. EXTREMITIES: No clubbing, no edema, no cyanosis, 2+ pulses and upper and lower extremities. Please refer to medication reconciliation sheet for a list of medications. Patient Condition at Discharge: Stable Plan - Discharge Summary New Discharge Prescriptions: New Ibuprofen [Motrin] 400 mg PO Q6HR PRN tab PRN Reason: Mild Pain Or Fever > 100.5 Acetaminophen Tab [Tylenol] 650 mg PO Q6HR PRN tab PRN Reason: Mild Pain Or Fever > 100.5 Ascorbic Acid [Vitamin C] 500 mg PO BID tab Cholecalciferol [Vitamin D3 (25 Mcg = 1000 Iu)] 50 mcg PO DAILY tablet Ondansetron [Zofran] 4 mg PO Q8HR PRN tab PRN Reason: Nausea And Vomiting Enoxaparin [Lovenox] 40 mg SQ DAILY each Zinc Sulfate [Orazinc] 220 mg PO DAILY cap Albuterol Inhaler [Ventolin Hfa Inhaler] 1 puff INHALATION RT-QID gm Continue Omeprazole [PriLOSEC] 20 mg PO Q48H Potassium Chloride [K-Tab ER] 10 meq PO DAILY Meclizine [Antivert] 25 mg PO TID PRN PRN Reason: Vertigo Metoprolol Tartrate [Lopressor] 25 mg PO BID #60 tab Furosemide [Lasix] 20 mg PO DAILY Melatonin 10 mg PO HS PRN PRN Reason: Insomnia Furosemide [Lasix] 40 mg PO HS Propafenone HCl 150 mg PO BID Zolpidem [Ambien] 10 mg PO HS PRN #3 tab PRN Reason: Insomnia traMADol HCl [Ultram] 50 mg PO DAILY PRN #6 tab PRN Reason: Pain Aspirin EC [Ecotrin] 325 mg PO DAILY Magnesium 250 mg PO BID Discontinued Ondansetron [Zofran] 4 mg PO BID PRN PRN Reason: Nausea Ibuprofen [Motrin] 800 mg PO BID PRN PRN Reason: Pain Discharge Medication List Omeprazole [PriLOSEC] 20 mg PO Q48H 02/05/15 [History] Meclizine [Antivert] 25 mg PO TID PRN 09/01/16 [History] Potassium Chloride [K-Tab ER] 10 meq PO DAILY 09/01/16 [History] Metoprolol Tartrate [Lopressor] 25 mg PO BID #60 tab 12/21/16 [Rx] Furosemide [Lasix] 20 mg PO DAILY 10/15/19 [History] Melatonin 10 mg PO HS PRN 10/15/19 [History] Furosemide [Lasix] 40 mg PO HS 06/02/20 [History] Propafenone HCl 150 mg PO BID 06/02/20 [History] Aspirin EC [Ecotrin] 325 mg PO DAILY 04/25/21 [History] Magnesium 250 mg PO BID 04/25/21 [History] Acetaminophen Tab [Tylenol] 650 mg PO Q6HR PRN tab 09/10/21 [Rx] Albuterol Inhaler [Ventolin Hfa Inhaler] 1 puff INHALATION RT-QID gm 09/10/21 [Rx] Ascorbic Acid [Vitamin C] 500 mg PO BID tab 09/10/21 [Rx] Cholecalciferol [Vitamin D3 (25 Mcg = 1000 Iu)] 50 mcg PO DAILY tablet 09/10/21 [Rx] Enoxaparin [Lovenox] 40 mg SQ DAILY each 09/10/21 [Rx] Ibuprofen [Motrin] 400 mg PO Q6HR PRN tab 09/10/21 [Rx] Ondansetron [Zofran] 4 mg PO Q8HR PRN tab 09/10/21 [Rx] Zinc Sulfate [Orazinc] 220 mg PO DAILY cap 09/10/21 [Rx] Zolpidem [Ambien] 10 mg PO HS PRN #3 tab 09/10/21 [Rx] traMADol HCl [Ultram] 50 mg PO DAILY PRN #6 tab 09/10/21 [Rx] Follow up Appointment(s)/Referral(s): Nita Rice MD [Primary Care Provider] - 1-2 days Activity/Diet/Wound Care/Special Instructions: She is going to [facility] as tolerated Continue medications as prescribed Continue regular diet Follow-up primary care provider on discharge Discharge Disposition: TRANSFER TO SNF/ECF
[2021-09-10 15:04] VITALS: BP 120/71; PULSE 66; RESP 18; TEMP 98.5
== END 2021-09-10 15:56 | DRG 178 ==
LOC: EC 11:01 → 4SSUR 13:36
PROVIDERS: ADMIT Internal Medicine; ATTEND Internal Medicine
DX: U07.1 COVID-19 (principal); N39.0 Urinary tract infection, site not specified; I48.20 Chronic atrial fibrillation, unspecified; I11.0 Hypertensive heart disease with heart failure; I50.9 Heart failure, unspecified; F41.9 Anxiety disorder, unspecified; H91.90 Unspecified hearing loss, unspecified ear; J45.909 Unspecified asthma, uncomplicated; M19.90 Unspecified osteoarthritis, unspecified site; B96.89 Other specified bacterial agents as the cause of diseases classified elsewhere; Z95.0 Presence of cardiac pacemaker; Z93.6 Other artificial openings of urinary tract status; Z79.82 Long term (current) use of aspirin; Z79.899 Other long term (current) drug therapy; Z88.5 Allergy status to narcotic agent; Z88.7 Allergy status to serum and vaccine; Z88.8 Allergy status to other drugs, medicaments and biological substances; Z90.710 Acquired absence of both cervix and uterus; Z87.891 Personal history of nicotine dependence; Z85.51 Personal history of malignant neoplasm of bladder; Z82.3 Family history of stroke; Z82.5 Family history of asthma and other chronic lower respiratory diseases; Z84.89 Family history of other specified conditions
CPT/HCPCS: 36415; 71045; 71046; 80048; 80053; 81001; 83605; 83615; 83735; 83880; 84100; 84484; 85025; 85379; 85610; 85730; 86140; 87077; 87086; 87186; 87635; 93005; 94640; 94760; 96360; 99285

== ENCOUNTER 2022-03-21 21:47 | Inpatient (IN) | payer MEDICARE, OTHER ==
[2022-03-21] MEDS ORDERED: ONDANSETRON 4 MG/2 ML VIAL IVP STA (22:08)
[2022-03-21] MEDS ORDERED: MORPHINE SULFATE 4 MG/ML SYRINGE IV STA (22:08)
[2022-03-21] MEDS ORDERED: SODIUM CHLORIDE 0.9% 500 ML 500 ML IV ONE (22:08)
[2022-03-21 22:44] VITALS: RESP 18
--- NOTE | 2022-03-21 22:45 | XR ---
EXAMINATION TYPE: XR KUB DATE OF EXAM: 03/21/2022 COMPARISON: 10/24/2018 HISTORY: Abdominal pain TECHNIQUE: 2 views supine FINDINGS: There is left hip prosthesis. There is severe deformity of the right hip joint. There are m ultiple surgical clips in the pelvis. No evidence of free air. There is distended gas-filled small wilmer wel loop in the mid abdomen. Lung bases are clear. IMPRESSION: Small bowel distention could relate to some ileus. No free air.
[2022-03-21] MEDS ORDERED: HYDROmorphone 1 MG/ML 1 ML SYRINGE IVP STA (22:59)
[2022-03-21 23:08] LABS: Basophils # (A) 0.1 k/uL (0-0.2); Basophils % (A) 1 %; Eosinophils # (A) 0.3 k/uL (0-0.7); Eosinophils % (A) 3 %; HCT 36.6 % (34.0-46.0); HGB 11.4 gm/dL (11.4-16.0); Hypochromasia Slight; Lymphocytes # (A) 0.7 k/uL (1.0-4.8); Lymphocytes % (A) 7 %; MCH 27.5 pg (25.0-35.0); MCHC 31.1 g/dL (31.0-37.0); MCV 88.3 fL (80.0-100.0); Mean Platelet Volume 8.4; Monocytes # (A) 0.7 k/uL (0-1.0); Monocytes % (A) 6 %; Neutrophils # (A) 8.8 k/uL (1.3-7.7); Neutrophils % (A) 83 %; Platelet Count 155 k/uL (150-450); RBC 4.15 m/uL (3.80-5.40); RDW 13.5 % (11.5-15.5); WBC 10.7 k/uL (3.8-10.6)
[2022-03-21 23:21] LABS: Albumin 3.7 g/dL (3.5-5.0); Calcium 9.5 mg/dL (8.4-10.2); Potassium 4.7 mmol/L (3.5-5.1); Total Bilirubin 0.4 mg/dL (0.2-1.3); Total Protein 6.6 g/dL (6.3-8.2)
[2022-03-21] MEDS ORDERED: NALOXONE 0.4 MG/ML 1 ML VIAL IV PRN (23:37)
[2022-03-21] MEDS ORDERED: ONDANSETRON 4 MG/2 ML VIAL IVP PRN (23:37)
--- NOTE | 2022-03-21 23:37 | ED ---
Abdominal Pain HPI - General Chief Complaint: Abdominal Pain Stated Complaint: Abdominal Pain Source: patient Mode of arrival: ambulatory Limitations: no limitations - History of Present Illness Initial Comments: 76-year-old female with past medical history of urostomy secondary to bladder cancer, multiple small bowel obstructions who presents to the emergency department with reported abdominal pain. States it was pretty sudden onset around 5 PM this evening. She had multiple associated episodes of vomiting. She has history of similar in the past and states that it feels exactly like when she had a small bowel obstruction previously. She denies that she's had surgical intervention for the obstructions. Has been seen by Dr. james previously from our hospital. Patient denies any black or bloody stools. No changes in her urostomy output. Denies any changes in her bowel habits. Does have Zofran however did not take any medications as the pain was so severe. No fevers. No other alleviating, precipitating or modifying factors - Related Data Home Medications Medication Instructions Recorded Confirmed Omeprazole [PriLOSEC] 20 mg PO Q48H 02/05/15 03/21/22 Meclizine [Antivert] 25 mg PO DAILY PRN 09/01/16 03/21/22 Potassium Chloride [K-Tab ER] 10 meq PO HS 09/01/16 03/21/22 Melatonin 10 mg PO HS PRN 10/15/19 03/21/22 Furosemide [Lasix] 40 mg PO HS 06/02/20 03/21/22 Propafenone HCl 150 mg PO BID 06/02/20 03/21/22 Aspirin EC [Ecotrin] 325 mg PO DAILY 04/25/21 03/21/22 Magnesium 250 mg PO DAILY 04/25/21 03/21/22 Ibuprofen [Motrin] 800 mg PO BID PRN 03/21/22 03/21/22 Ondansetron [Zofran] 4 mg PO BID PRN 03/21/22 03/21/22 Zolpidem [Ambien] 5 mg PO HS PRN 03/21/22 03/21/22 Previous Rx's Medication Instructions Recorded Metoprolol Tartrate [Lopressor] 25 mg PO BID #60 tab 12/21/16 traMADol HCl [Ultram] 50 mg PO DAILY PRN #6 tab 09/10/21 Allergies Allergy/AdvReac Type Severity Reaction Status Date / Time ether Allergy Anaphylaxis Verified 03/21/22 22:40 formaldehyde Allergy Anaphylaxis Verified 03/21/22 22:40 tetanus and diphtheria Allergy Unknown Verified 03/21/22 22:40 toxoids [tetanus & diphtheria toxoids] codeine AdvReac Nausea Verified 03/21/22 22:40 Review of Systems ROS Statement: Those systems with pertinent positive or pertinent negative responses have been documented in the HPI. ROS Other: All systems not noted in ROS Statement are negative. Past Medical History Past Medical History: Atrial Fibrillation, Cancer, GERD/Reflux, Hypertension, Osteoarthritis (OA) Additional Past Medical History / Comment(s): bladder cancer with urostomy, Small Bowel Obstruction, vertigo History of Any Multi-Drug Resistant Organisms: None Reported Past Surgical History: Ablation, Bladder Surgery, Heart Catheterization, Hernia Repair, Hysterectomy, Orthopedic Surgery, Pacemaker, Tonsillectomy Additional Past Surgical History / Comment(s): LEFT HIP SURGERY x 5, GRAFTS AND MARNIE 2015, ablasion CARDIOVERSION, urostomy 10/2010, cataracts 2017 Past Anesthesia/Blood Transfusion Reactions: Previous Problems w/ Anesthesia Additional Past Anesthesia/Blood Transfusion Reaction / Comment(s): asthma attack Type of Cardiac Device: Permanent Pacemaker Device Placement Date:: 2012 Past Psychological History: Anxiety Smoking Status: Former smoker Past Alcohol Use History: Occasional Past Drug Use History: None Reported - Past Family History Mother Family Medical History: Asthma, GERD/Reflux Additional Family Medical History / Comment(s): diverticulitus, glaucoma Father Family Medical History: Hyperlipidemia Additional Family Medical History / Comment(s): stroke, brain tumour General Exam Limitations: no limitations Course Vital Signs 03/21/22 22:42 Temperature 98.2 F Pulse Rate 70 Respiratory 18 Rate Blood Pressure 133/94 O2 Sat by Pulse 98 Oximetry Medical Decision Making - Medical Decision Making On arrival patient is placed into room 24. A thorough history and physical exam was performed. IV access is established and she was given 4 g of morphine informal grams of Zofran. She does not have any pain relief and therefore is given 1 mg of Dilaudid. Laboratory studies are conducted her review. Lipase is mildly elevated at 1245. X-rays performed which does demonstrate concerning signs for ileus. Recommended admission for surgical consultation for which the patient did agree to. Patient will be admitted to [facility] with surgery to consult. She remained in stable condition awaiting a bed on the floor - Lab Data Result diagrams: 03/21/22 22:41 03/21/22 22:41 Lab Results 03/21/22 03/21/22 03/21/22 Range/Units 22:41 22:41 22:41 WBC 10.7 H (3.8-10.6) k/uL RBC 4.15 (3.80-5.40) m/uL Hgb 11.4 (11.4-16.0) gm/dL Hct 36.6 (34.0-46.0) % MCV 88.3 (80.0-100.0) fL MCH 27.5 (25.0-35.0) pg MCHC 31.1 (31.0-37.0) g/dL RDW 13.5 (11.5-15.5) % Plt Count 155 (150-450) k/uL MPV 8.4 Neutrophils % 83 % Lymphocytes % 7 % Monocytes % 6 % Eosinophils % 3 % Basophils % 1 % Neutrophils # 8.8 H (1.3-7.7) k/uL Lymphocytes # 0.7 L (1.0-4.8) k/uL Monocytes # 0.7 (0-1.0) k/uL Eosinophils # 0.3 (0-0.7) k/uL Basophils # 0.1 (0-0.2) k/uL Hypochromasia Slight Sodium 138 (137-145) mmol/L Potassium 4.7 (3.5-5.1) mmol/L Chloride 107 (98-107) mmol/L Carbon Dioxide 24 (22-30) mmol/L Anion Gap 7 mmol/L BUN 24 H (7-17) mg/dL Creatinine 0.94 (0.52-1.04) mg/dL Est GFR (CKD-EPI)AfAm 68 (>60 ml/min/1.73 sqM) Est GFR (CKD-EPI)NonAf 59 (>60 ml/min/1.73 sqM) Glucose 104 H (74-99) mg/dL Plasma Lactic Acid Aidan 1.3 (0.7-2.0) mmol/L Calcium 9.5 (8.4-10.2) mg/dL Total Bilirubin 0.4 (0.2-1.3) mg/dL AST 28 (14-36) U/L ALT 24 (4-34) U/L Alkaline Phosphatase 139 H (38-126) U/L Total Protein 6.6 (6.3-8.2) g/dL Albumin 3.7 (3.5-5.0) g/dL Lipase 1245 H (23-300) U/L Disposition Clinical Impression: Ileus, Abdominal pain, Nausea & vomiting Disposition: ADMITTED IP TO THIS [facility] Condition: Stable Is patient prescribed a controlled substance at d/c from ED?: No Referrals: Nita Rice MD [Primary Care Provider] - 1-2 days Time of Disposition: 23:41 Decision to Admit Reason: Admit from EC Decision Date: 03/21/22 Decision Time: 23:41
[2022-03-22] MEDS: METOPROLOL TARTRATE 25 MG TAB PO SCH ×2 (01:07→09:00)
[2022-03-22] MEDS: PROPAFENONE 150 MG TAB PO SCH ×2 (03:17→08:59)
[2022-03-22] MEDS: SODIUM CHLORIDE 0.9% 1,000 ML IV SCH ×2 (03:18→16:58)
[2022-03-22] MEDS: HYDROmorphone 1 MG/ML 1 ML SYRINGE IVP PRN ×2 (03:36→06:19)
[2022-03-22 04:18] LABS: Appearance,Urine Cloudy (Clear); Bacteria,Urine Rare /hpf; Bilirubin,Urine Negative (Negative); Blood,Urine Small (Negative); Color,Urine Yellow; Glucose,Urine (UA) Negative (Negative); Ketones,Urine Negative (Negative); Leukocyte Esterase,Urine Large (Negative); Mucus,Urine Rare /hpf; Nitrite,Urine Positive (Negative); PH, Urine 8.5 (5.0-8.0); Protein,Urine 1+ (Negative); RBC,Urine 17 /hpf (0-5); Specific Gravity,Urine 1.014 (1.001-1.035); Squamous Epithelial Cell,Urine 1 /hpf (0-4); Urobilinogen,Urine <2.0 mg/dL (<2.0); WBC,Urine 21 /hpf (0-5)
[2022-03-22 08:14] LABS: Basophils % (A) 1 %; Eosinophils # (A) 0.2 k/uL (0-0.7); Eosinophils % (A) 4 %; HGB 10.2 gm/dL (11.4-16.0); Hypochromasia Moderate; Lymphocytes % (A) 17 %; MCH 27.2 pg (25.0-35.0); MCV 90.7 fL (80.0-100.0); Monocytes # (A) 0.4 k/uL (0-1.0); Monocytes % (A) 6 %; Neutrophils # (A) 4.2 k/uL (1.3-7.7); Neutrophils % (A) 70 %; Platelet Count 253 k/uL (150-450); RBC 3.75 m/uL (3.80-5.40); RDW 13.6 % (11.5-15.5)
[2022-03-22 08:23] LABS: INR 0.9 (<1.2); Partial Thromboplastin Time 22.7 sec (22.0-30.0); Prothrombin Time 10.1 sec (9.0-12.0)
[2022-03-22 08:35] LABS: Potassium 5.1 mmol/L (3.5-5.1)
[2022-03-22] MEDS ORDERED: ASPIRIN 325 MG TAB PO SCH (09:00)
[2022-03-22] MEDS ORDERED: MAGNESIUM OXIDE 400 MG TAB PO SCH (09:00)
--- NOTE | 2022-03-22 12:00 | P.GSCN ---
History of Present Illness Consult date: 03/22/22 Reason for Consult: Abdominal pain, ileus History of present illness: This a 76-year-old female who is admitted through the emergency room with complaints of abdominal pain possible ileus. Patient states that she's had a bowel movement this morning and is having flatus. She states her pain is resolved. Past Medical History Past Medical History: Atrial Fibrillation, Cancer, GERD/Reflux, Hypertension, Osteoarthritis (OA) Additional Past Medical History / Comment(s): bladder cancer with urostomy, Small Bowel Obstruction, vertigo History of Any Multi-Drug Resistant Organisms: None Reported Past Surgical History: Ablation, Bladder Surgery, Heart Catheterization, Hernia Repair, Hysterectomy, Orthopedic Surgery, Pacemaker, Tonsillectomy Additional Past Surgical History / Comment(s): LEFT HIP SURGERY x 5, GRAFTS AND MARNIE 2015, ablasion CARDIOVERSION, urostomy 10/2010, cataracts 2017 Past Anesthesia/Blood Transfusion Reactions: Previous Problems w/ Anesthesia Additional Past Anesthesia/Blood Transfusion Reaction / Comm: asthma attack Type of Cardiac Device: Permanent Pacemaker Device Placement Date:: 2012 Past Psychological History: Anxiety Smoking Status: Former smoker Past Alcohol Use History: Occasional Past Drug Use History: None Reported - Past Family History Mother Family Medical History: Asthma, GERD/Reflux Additional Family Medical History / Comment(s): diverticulitus, glaucoma Father Family Medical History: Hyperlipidemia Additional Family Medical History / Comment(s): stroke, brain tumor Medications and Allergies Home Medications Medication Instructions Recorded Confirmed Type Omeprazole [PriLOSEC] 20 mg PO Q48H 02/05/15 03/21/22 History Meclizine [Antivert] 25 mg PO DAILY PRN 09/01/16 03/21/22 History Potassium Chloride [K-Tab ER] 10 meq PO HS 09/01/16 03/21/22 History Metoprolol Tartrate [Lopressor] 25 mg PO BID #60 tab 12/21/16 03/21/22 Rx Melatonin 10 mg PO HS PRN 10/15/19 03/21/22 History Furosemide [Lasix] 40 mg PO HS 06/02/20 03/21/22 History Propafenone HCl 150 mg PO BID 06/02/20 03/21/22 History Aspirin EC [Ecotrin] 325 mg PO DAILY 04/25/21 03/21/22 History Magnesium 250 mg PO DAILY 04/25/21 03/21/22 History traMADol HCl [Ultram] 50 mg PO DAILY PRN #6 tab 09/10/21 03/21/22 Rx Ibuprofen [Motrin] 800 mg PO BID PRN 03/21/22 03/21/22 History Ondansetron [Zofran] 4 mg PO BID PRN 03/21/22 03/21/22 History Zolpidem [Ambien] 5 mg PO HS PRN 03/21/22 03/21/22 History Allergies Allergy/AdvReac Type Severity Reaction Status Date / Time ether Allergy Anaphylaxis Verified 03/21/22 22:40 formaldehyde Allergy Anaphylaxis Verified 03/21/22 22:40 tetanus and diphtheria Allergy Unknown Verified 03/21/22 22:40 toxoids [tetanus & diphtheria toxoids] codeine AdvReac Nausea Verified 03/21/22 22:40 Surgical - Exam Vital Signs Temp Pulse Resp BP Pulse Ox 98.2 F 70 18 133/94 98 03/21/22 22:42 03/21/22 22:42 03/21/22 22:42 03/21/22 22:42 03/21/22 22:42 - General well developed, well nourished, no distress - Eyes PERRL - ENT normal pinna - Neck no masses - Respiratory normal expansion - Cardiovascular Rhythm: regular - Abdomen Abdomen: soft, non tender Results - Labs 03/22/22 07:39 03/22/22 07:39 Abnormal Lab Results - Last 24 Hours (Table) 03/21/22 03/21/22 03/22/22 Range/Units 22:41 22:41 03:20 WBC 10.7 H (3.8-10.6) k/uL RBC (3.80-5.40) m/uL Hgb (11.4-16.0) gm/dL MCHC (31.0-37.0) g/dL Neutrophils # 8.8 H (1.3-7.7) k/uL Lymphocytes # 0.7 L (1.0-4.8) k/uL Chloride (98-107) mmol/L BUN 24 H (7-17) mg/dL Glucose 104 H (74-99) mg/dL Alkaline Phosphatase 139 H (38-126) U/L Lipase 1245 H (23-300) U/L Urine Appearance Cloudy H (Clear) Urine pH 8.5 H (5.0-8.0) Urine Protein 1+ H (Negative) Urine Blood Small H (Negative) Urine Nitrite Positive H (Negative) Ur Leukocyte Esterase Large H (Negative) Urine RBC 17 H (0-5) /hpf Urine WBC 21 H (0-5) /hpf Urine Bacteria Rare H (None) /hpf Urine Mucus Rare H (None) /hpf 03/22/22 03/22/22 Range/Units 07:39 07:39 WBC (3.8-10.6) k/uL RBC 3.75 L (3.80-5.40) m/uL Hgb 10.2 L (11.4-16.0) gm/dL MCHC 30.0 L (31.0-37.0) g/dL Neutrophils # (1.3-7.7) k/uL Lymphocytes # (1.0-4.8) k/uL Chloride 111 H (98-107) mmol/L BUN 19 H (7-17) mg/dL Glucose (74-99) mg/dL Alkaline Phosphatase (38-126) U/L Lipase (23-300) U/L Urine Appearance (Clear) Urine pH (5.0-8.0) Urine Protein (Negative) Urine Blood (Negative) Urine Nitrite (Negative) Ur Leukocyte Esterase (Negative) Urine RBC (0-5) /hpf Urine WBC (0-5) /hpf Urine Bacteria (None) /hpf Urine Mucus (None) /hpf Microbiology - Last 24 Hours (Table) 03/22/22 03:20 Urine Culture - Preliminary Urine,Voided Diabetes panel 03/21/22 03/22/22 Range/Units 22:41 07:39 Sodium 138 140 (137-145) mmol/L Potassium 4.7 5.1 (3.5-5.1) mmol/L Chloride 107 111 H (98-107) mmol/L Carbon Dioxide 24 26 (22-30) mmol/L BUN 24 H 19 H (7-17) mg/dL Creatinine 0.94 0.88 (0.52-1.04) mg/dL Glucose 104 H 98 (74-99) mg/dL Calcium 9.5 9.0 (8.4-10.2) mg/dL AST 28 (14-36) U/L ALT 24 (4-34) U/L Alkaline Phosphatase 139 H (38-126) U/L Total Protein 6.6 (6.3-8.2) g/dL Albumin 3.7 (3.5-5.0) g/dL Calcium panel 03/21/22 03/22/22 Range/Units 22:41 07:39 Calcium 9.5 9.0 (8.4-10.2) mg/dL Albumin 3.7 (3.5-5.0) g/dL Pituitary panel 03/21/22 03/22/22 Range/Units 22:41 07:39 Sodium 138 140 (137-145) mmol/L Potassium 4.7 5.1 (3.5-5.1) mmol/L Chloride 107 111 H (98-107) mmol/L Carbon Dioxide 24 26 (22-30) mmol/L BUN 24 H 19 H (7-17) mg/dL Creatinine 0.94 0.88 (0.52-1.04) mg/dL Glucose 104 H 98 (74-99) mg/dL Calcium 9.5 9.0 (8.4-10.2) mg/dL Adrenal panel 03/21/22 03/22/22 Range/Units 22:41 07:39 Sodium 138 140 (137-145) mmol/L Potassium 4.7 5.1 (3.5-5.1) mmol/L Chloride 107 111 H (98-107) mmol/L Carbon Dioxide 24 26 (22-30) mmol/L BUN 24 H 19 H (7-17) mg/dL Creatinine 0.94 0.88 (0.52-1.04) mg/dL Glucose 104 H 98 (74-99) mg/dL Calcium 9.5 9.0 (8.4-10.2) mg/dL Total Bilirubin 0.4 (0.2-1.3) mg/dL AST 28 (14-36) U/L ALT 24 (4-34) U/L Alkaline Phosphatase 139 H (38-126) U/L Total Protein 6.6 (6.3-8.2) g/dL Albumin 3.7 (3.5-5.0) g/dL Assessment and Plan Assessment: Resolving ileus. Patient will start on full liquid diet.
[2022-03-22 12:46] VITALS: BP 106/68; PULSE 64; TEMP 98
--- NOTE | 2022-03-23 17:35 | P.HPIM ---
History of Present Illness H&P Date: 03/22/22 This is a 76 year old female with history of atrial fibrillation has undergone past ablation, cardioversion and permanent pacemaker implantation she is now in paced rhythm, GERD, hypertension, small bowel obstruction, bladder cancer with urostomy. She presents with concern for LLQ abdominal pain near the urostomy sight and states this is chronic for her due to build up of scar tissue she experiences. KUB on admission shows small bowel distention related to some ileus. She has a white count 10.7 on admission, hemoglobin stable at 11.4, sodium 138, potassium 4.7, BUN 24, creatinine 0.94, glucose 14, alk phos 139, lipase 1245. Urinalysis questionable for infection there is positive nitrate. S he does have chronic urostomy where both kidneys divert to one drainage bag. Urine is cloudy on presentation. She had urine culture done showing gram negative. She received IV hydration. Clinically she improved off of antibiotics, white count normalized and she currently is denying abdominal pain. She has had bowel movement since admission and her abdominal pain has resolved and diet has been advanced. She will most likely be able to discharge later on this afternoon if she tolerates lunch. REVIEW OF SYSTEMS: CONSTITUTIONAL: No fever, no malaise, no fatigue. HEENT: No recent visual problems or hearing problems. Denied any sore throat. CARDIOVASCULAR: No chest pain, orthopnea, PND, no palpitations, no syncope. PULMONARY: No shortness of breath, no cough, no hemoptysis. GASTROINTESTINAL: No diarrhea, no nausea, no vomiting. Reports LLQ abdominal pain. NEUROLOGICAL: No headaches, no weakness, no numbness. HEMATOLOGICAL: Denies any bleeding or petechiae. GENITOURINARY: Denies any burning micturition, frequency, or urgency. MUSCULOSKELETAL/RHEUMATOLOGICAL: Denies any joint pain, swelling, or any muscle pain. ENDOCRINE: Denies any polyuria or polydipsia. The rest of the 14-point review of systems is negative. PHYSICAL EXAMINATION: GENERAL: The patient is alert and oriented x3, not in any acute distress. Well developed, well nourished. HEENT: Pupils are round and equally reacting to light. EOMI. No scleral icterus. No conjunctival pallor. Normocephalic, atraumatic. No pharyngeal erythema. No thyromegaly. CARDIOVASCULAR: S1 and S2 present. No murmurs, rubs, or gallops. PULMONARY: Chest is clear to auscultation, no wheezing or crackles. ABDOMEN: Soft, nontender, nondistended, normoactive bowel sounds. No palpable organomegaly. Urostomy drainage bag present. MUSCULOSKELETAL: No joint swelling or deformity. EXTREMITIES: No cyanosis, clubbing, or pedal edema. NEUROLOGICAL: Gross neurological examination did not reveal any focal deficits. SKIN: No rashes. Assessment and Plan Assessment Left lower quadrant abdominal pain secondary to ileus which is resolving Leukocytosis is reactive to above improving Asymptomatic bacteriuria patient clinically improved off antibiotics History of bladder cancer with urostomy History of previous small bowel obstruction and ileus History of atrial fibrillation status post ablation, cardioversion with permanent pacemaker Hypertension Gastroesophageal reflux disease GI prophylaxis Full Code Plan Patient will have diet advanced to full liquid If patient tolerates advanced diet she will be discharge home this afternoon Resume appropriate home medications Patient is out of tramadol will give a 3 day supply and she will need to follow up with Dr Rice outpatient in 2-3 days Patient also is requesting to transition from motrin to naproxen which gave a 1 week trial and she will also see Dr Rice outpatient for this The impression and plan of care has been dictated by Fina Bermudez Nurse Practitioner as directed. Dr. Rosalba MD I have performed a history and physical examination and medical decision making of this patient, discussed the same with the dictator, and agree with the dictators assessment and plan as written, documented as a scribe. Based on total visit time, I have performed more than 50% of this visit. Past Medical History Past Medical History: Atrial Fibrillation, Cancer, GERD/Reflux, Hypertension, Osteoarthritis (OA) Additional Past Medical History / Comment(s): bladder cancer with urostomy, Small Bowel Obstruction, vertigo History of Any Multi-Drug Resistant Organisms: None Reported Past Surgical History: Ablation, Bladder Surgery, Heart Catheterization, Hernia Repair, Hysterectomy, Orthopedic Surgery, Pacemaker, Tonsillectomy Additional Past Surgical History / Comment(s): LEFT HIP SURGERY x 5, GRAFTS AND MARNIE 2015, ablasion CARDIOVERSION, urostomy 10/2010, cataracts 2017 Past Anesthesia/Blood Transfusion Reactions: Previous Problems w/ Anesthesia Additional Past Anesthesia/Blood Transfusion Reaction / Comment(s): asthma attack Type of Cardiac Device: Permanent Pacemaker Device Placement Date:: 2012 Past Psychological History: Anxiety Smoking Status: Former smoker Past Alcohol Use History: Occasional Past Drug Use History: None Reported - Past Family History Mother Family Medical History: Asthma, GERD/Reflux Additional Family Medical History / Comment(s): diverticulitus, glaucoma Father Family Medical History: Hyperlipidemia Additional Family Medical History / Comment(s): stroke, brain tumor Medications and Allergies Home Medications Medication Instructions Recorded Confirmed Type Omeprazole [PriLOSEC] 20 mg PO Q48H 02/05/15 03/21/22 History Meclizine [Antivert] 25 mg PO DAILY PRN 09/01/16 03/21/22 History Potassium Chloride [K-Tab ER] 10 meq PO HS 09/01/16 03/21/22 History Metoprolol Tartrate [Lopressor] 25 mg PO BID #60 tab 12/21/16 03/21/22 Rx Melatonin 10 mg PO HS PRN 10/15/19 03/21/22 History Furosemide [Lasix] 40 mg PO HS 06/02/20 03/21/22 History Propafenone HCl 150 mg PO BID 06/02/20 03/21/22 History Aspirin EC [Ecotrin] 325 mg PO DAILY 04/25/21 03/21/22 History Magnesium 250 mg PO DAILY 04/25/21 03/21/22 History Ondansetron [Zofran] 4 mg PO BID PRN 03/21/22 03/21/22 History Zolpidem [Ambien] 5 mg PO HS PRN 03/21/22 03/21/22 History Docusate [Colace] 100 mg PO DAILY #30 capsule 03/22/22 Rx Naproxen [Naprosyn] 250 mg PO BID 7 Days #14 tab 03/22/22 Rx traMADol HCl [Ultram] 50 mg PO DAILY PRN 3 Days #3 tab 03/22/22 Rx Allergies Allergy/AdvReac Type Severity Reaction Status Date / Time ether Allergy Anaphylaxis Verified 03/21/22 22:40 formaldehyde Allergy Anaphylaxis Verified 03/21/22 22:40 tetanus and diphtheria Allergy Unknown Verified 03/21/22 22:40 toxoids [tetanus & diphtheria toxoids] codeine AdvReac Nausea Verified 03/21/22 22:40 Physical Exam Vitals: Vital Signs Temp Pulse Pulse Pulse Pulse Resp BP 03/22/22 09:01 66 03/22/22 04:40 96.9 F L 66 18 03/22/22 02:00 98.3 F 70 18 03/22/22 01:14 79 18 133/83 03/21/22 22:42 98.2 F 70 18 133/94 BP Pulse Ox 03/22/22 09:01 107/65 03/22/22 04:40 112/69 95 03/22/22 02:00 169/69 96 03/22/22 01:14 98 03/21/22 22:42 98 Intake and Output 03/21/22 03/22/22 03/22/22 22:59 06:59 14:59 Other: Voiding Method Ileal Conduit (Right) # Bowel Movements 0 # Emeses 0 Weight 78.018 kg Results CBC & Chem 7: 03/22/22 07:39 03/22/22 07:39 Labs: Abnormal Lab Results - Last 24 Hours (Table) 03/21/22 03/21/22 03/22/22 Range/Units 22:41 22:41 03:20 WBC 10.7 H (3.8-10.6) k/uL RBC (3.80-5.40) m/uL Hgb (11.4-16.0) gm/dL MCHC (31.0-37.0) g/dL Neutrophils # 8.8 H (1.3-7.7) k/uL Lymphocytes # 0.7 L (1.0-4.8) k/uL Chloride (98-107) mmol/L BUN 24 H (7-17) mg/dL Glucose 104 H (74-99) mg/dL Alkaline Phosphatase 139 H (38-126) U/L Lipase 1245 H (23-300) U/L Urine Appearance Cloudy H (Clear) Urine pH 8.5 H (5.0-8.0) Urine Protein 1+ H (Negative) Urine Blood Small H (Negative) Urine Nitrite Positive H (Negative) Ur Leukocyte Esterase Large H (Negative) Urine RBC 17 H (0-5) /hpf Urine WBC 21 H (0-5) /hpf Urine Bacteria Rare H (None) /hpf Urine Mucus Rare H (None) /hpf 03/22/22 03/22/22 Range/Units 07:39 07:39 WBC (3.8-10.6) k/uL RBC 3.75 L (3.80-5.40) m/uL Hgb 10.2 L (11.4-16.0) gm/dL MCHC 30.0 L (31.0-37.0) g/dL Neutrophils # (1.3-7.7) k/uL Lymphocytes # (1.0-4.8) k/uL Chloride 111 H (98-107) mmol/L BUN 19 H (7-17) mg/dL Glucose (74-99) mg/dL Alkaline Phosphatase (38-126) U/L Lipase (23-300) U/L Urine Appearance (Clear) Urine pH (5.0-8.0) Urine Protein (Negative) Urine Blood (Negative) Urine Nitrite (Negative) Ur Leukocyte Esterase (Negative) Urine RBC (0-5) /hpf Urine WBC (0-5) /hpf Urine Bacteria (None) /hpf Urine Mucus (None) /hpf Microbiology - Last 24 Hours (Table) 03/22/22 03:20 Urine Culture - Preliminary Urine,Voided Thrombosis Risk Factor Assmnt - Choose All That Apply Any of the Below Risk Factors Present?: Yes Each Factor Represents 1 point: Obesity (BMI >25), Swollen legs (current) Other Risk Factors: Yes Each Risk Factor Represents 3 Points: Age 75 years or older Thrombosis Risk Factor Assessment Total Risk Factor Score: 5 Thrombosis Risk Factor Assessment Level: High Risk Assessment and Plan Time with Patient: Less than 30
--- NOTE | 2022-03-23 17:39 | P.DS ---
Providers Date of admission: 03/21/22 23:37 Attending physician: Baldemar Sneed MD Consults: 03/21/22 23:37 Consult Physician Urgent Consulting Provider: Chris Reese Consult Reason/Comments: abd pain, ileus, hx urostomy, hx sbo Do you want consulting provider notified?: Yes Primary care physician: Krystal Moya Hospital Course: Final Diagnosis Left lower quadrant abdominal pain secondary to ileus which is resolving Leukocytosis is reactive to above improving Asymptomatic bacteriuria patient clinically improved off antibiotics History of bladder cancer with urostomy History of previous small bowel obstruction and ileus History of atrial fibrillation status post ablation, cardioversion with permanent pacemaker Hypertension Gastroesophageal reflux disease Discharge Disposition Patient is stable for discharge, she has tolerated an increase in diet and no further episodes of abdominal pain. She is passing gas. Her labs have improved. Patient is out of tramadol will give a 3 day supply and she will need to follow up with Dr Rice outpatient in 2-3 days Patient also is requesting to transition from motrin to naproxen which gave a 1 week trial and she will also see Dr Rice outpatient for this Hospital Course This is a 76 year old female with history of atrial fibrillation has undergone past ablation, cardioversion and permanent pacemaker implantation she is now in paced rhythm, GERD, hypertension, small bowel obstruction, bladder cancer with urostomy. She presents with concern for LLQ abdominal pain near the urostomy sight and states this is chronic for her due to build up of scar tissue she experiences. KUB on admission shows small bowel distention related to some ileus. She has a white count 10.7 on admission, hemoglobin stable at 11.4, sodium 138, potassium 4.7, BUN 24, creatinine 0.94, glucose 14, alk phos 139, lipase 1245. Urinalysis questionable for infection there is positive nitrate. She does have chronic urostomy where both kidneys divert to one drainage bag. Urine is cloudy on presentation. She had urine culture done showing gram negative. She received IV hydration. Clinically she improved off of antibiotics, white count normalized and she currently is denying abdominal pain. She has had bowel movement since admission and her abdominal pain has resolved and diet has been advanced. She will be discharged home today and will follow up in the office with her PCP Dr Rice, Dr Izquierdo her urologist, and Dr Reese. Also she is in between finding a new senior net software engineer as hers is in [place] and she states she cannot afford the gas money anymore. She has seen Dr Abreu prior to his halfway and we referred her back to [facility] for follow up and monitoring. 03/23/2022 Currently denying abdominal pain, hemodynamically stable. Her white count has improved. Lungs are clear, S1 S2 auscultated, abdomen is soft and nontender. Please see medical H & P for additional information. Please see medication reconciliation for list of current medications. Thank you for allowing us to participate in the care of this patient. The impression and plan of care has been dictated by Fina Bermudez, Nurse Practitioner as directed. Dr. Rosalba MD I have performed a history and physical examination and medical decision making of this patient, discussed the same with the dictator, and agree with the dictators assessment and plan as written, documented as a scribe. Based on total visit time, I have performed more than 50% of this visit. Patient Condition at Discharge: Stable Plan - Discharge Summary New Discharge Prescriptions: New Naproxen [Naprosyn] 250 mg PO BID 7 Days #14 tab Docusate [Colace] 100 mg PO DAILY #30 capsule Continue Omeprazole [PriLOSEC] 20 mg PO Q48H Potassium Chloride [K-Tab ER] 10 meq PO HS Meclizine [Antivert] 25 mg PO DAILY PRN PRN Reason: Vertigo Metoprolol Tartrate [Lopressor] 25 mg PO BID #60 tab Melatonin 10 mg PO HS PRN PRN Reason: Insomnia Furosemide [Lasix] 40 mg PO HS Propafenone HCl 150 mg PO BID Aspirin EC [Ecotrin] 325 mg PO DAILY Magnesium 250 mg PO DAILY Ondansetron [Zofran] 4 mg PO BID PRN PRN Reason: Nausea Zolpidem [Ambien] 5 mg PO HS PRN PRN Reason: Insomnia traMADol HCl [Ultram] 50 mg PO DAILY PRN 3 Days #3 tab PRN Reason: Pain Discontinued Ibuprofen [Motrin] 800 mg PO BID PRN PRN Reason: Pain Discharge Medication List Omeprazole [PriLOSEC] 20 mg PO Q48H 02/05/15 [History] Meclizine [Antivert] 25 mg PO DAILY PRN 09/01/16 [History] Potassium Chloride [K-Tab ER] 10 meq PO HS 09/01/16 [History] Metoprolol Tartrate [Lopressor] 25 mg PO BID #60 tab 12/21/16 [Rx] Melatonin 10 mg PO HS PRN 10/15/19 [History] Furosemide [Lasix] 40 mg PO HS 06/02/20 [History] Propafenone HCl 150 mg PO BID 06/02/20 [History] Aspirin EC [Ecotrin] 325 mg PO DAILY 04/25/21 [History] Magnesium 250 mg PO DAILY 04/25/21 [History] Ondansetron [Zofran] 4 mg PO BID PRN 03/21/22 [History] Zolpidem [Ambien] 5 mg PO HS PRN 03/21/22 [History] Docusate [Colace] 100 mg PO DAILY #30 capsule 03/22/22 [Rx] Naproxen [Naprosyn] 250 mg PO BID 7 Days #14 tab 03/22/22 [Rx] traMADol HCl [Ultram] 50 mg PO DAILY PRN 3 Days #3 tab 03/22/22 [Rx] Follow up Appointment(s)/Referral(s): Nita Rice MD [Primary Care Provider] - 1-2 days Ned Bruce MD [STAFF PHYSICIAN] - 1 Week Samm Izquierdo MD [STAFF PHYSICIAN] - 1 Week Chris Reese MD [STAFF PHYSICIAN] - 1 Week Ambulatory/Diagnostic Orders: Basic Metabolic Panel [LAB.AMB] Time Frame: 2 Days, Location: None Selected Lipase [LAB.AMB] Time Frame: 3 Days, Location: None Selected Patient Instructions/Handouts: Naproxen (By mouth), Laxative, Stool Softeners (By mouth), Tramadol (By mouth), Basic Metabolic Panel (GEN), Acute Abdominal Pain (DC) Activity/Diet/Wound Care/Special Instructions: Follow up with urology regarding urostomy Follow up urine culture Discharge Disposition: HOME SELF-CARE
== END 2022-03-22 17:15 | disposition home or self-care (01) | DRG 390 ==
LOC: EC 21:47 → 5NMEDONC 23:37
PROVIDERS: ADMIT Internal Medicine; ATTEND Internal Medicine
DX: K56.7 Ileus, unspecified (principal); R82.71 Bacteriuria; I48.91 Unspecified atrial fibrillation; F41.9 Anxiety disorder, unspecified; D72.829 Elevated white blood cell count, unspecified; I10 Essential (primary) hypertension; K21.9 Gastro-esophageal reflux disease without esophagitis; M19.90 Unspecified osteoarthritis, unspecified site; R74.8 Abnormal levels of other serum enzymes; E66.9 Obesity, unspecified; Z28.310 Unvaccinated for COVID-19; Z68.29 Body mass index [BMI] 29.0-29.9, adult; Z87.09 Personal history of other diseases of the respiratory system; Z85.51 Personal history of malignant neoplasm of bladder; Z93.6 Other artificial openings of urinary tract status; Z87.19 Personal history of other diseases of the digestive system; Z79.82 Long term (current) use of aspirin; Z79.899 Other long term (current) drug therapy; Z87.891 Personal history of nicotine dependence; Z90.710 Acquired absence of both cervix and uterus; Z88.4 Allergy status to anesthetic agent; Z88.5 Allergy status to narcotic agent; Z88.7 Allergy status to serum and vaccine; Z88.8 Allergy status to other drugs, medicaments and biological substances; Z98.42 Cataract extraction status, left eye; Z98.41 Cataract extraction status, right eye; Z98.890 Other specified postprocedural states; Z90.89 Acquired absence of other organs; Z95.0 Presence of cardiac pacemaker; Z86.69 Personal history of other diseases of the nervous system and sense organs; Z82.3 Family history of stroke; Z82.5 Family history of asthma and other chronic lower respiratory diseases; Z83.79 Family history of other diseases of the digestive system; Z83.511 Family history of glaucoma; Z83.42 Family history of familial hypercholesterolemia; Z84.89 Family history of other specified conditions
CPT/HCPCS: 36415; 74018; 80048; 80053; 81001; 83605; 83690; 85025; 85610; 85730; 87077; 87086; 87186; 96361; 96374; 96375; 99285

== ENCOUNTER 2022-09-06 19:18 | Emergency (ER) | payer MEDICARE, OTHER ==
[2022-09-06 19:55] LABS: Appearance,Urine Turbid (Clear); Bacteria,Urine Occasional /hpf; Bilirubin,Urine Negative (Negative); Blood,Urine Negative (Negative); Color,Urine Yellow; Glucose,Urine (UA) Negative (Negative); Hyaline Casts,Urine 5 /lpf (0-2); Ketones,Urine Negative (Negative); Leukocyte Esterase,Urine Large (Negative); Mucus,Urine Occasional /hpf; Nitrite,Urine Positive (Negative); PH, Urine 8.5 (5.0-8.0); Protein,Urine 1+ (Negative); RBC,Urine 3 /hpf (0-5); Specific Gravity,Urine 1.015 (1.001-1.035); Squamous Epithelial Cell,Urine <1 /hpf (0-4); Triple Phosphate Crystal,Urine Many /hpf; Urobilinogen,Urine <2.0 mg/dL (<2.0); WBC,Urine 11 /hpf (0-5)
--- NOTE | 2022-09-06 21:41 | ED ---
Female Urogenital HPI - General Chief complaint: Urogenital Stated complaint: Abd pain,post-op comp Time Seen by Provider: 09/06/22 19:41 Source: patient, RN notes reviewed, old records reviewed Mode of arrival: EMS Limitations: physical limitation - History of Present Illness Initial comments: This is a 76-year-old female to the emergency department for evaluation patient resents today for evaluation regards to urostomy issues abdominal pain dysuria. Patient when he does have pain in the can have urinary tract infection history of multiple and significant recurrent urinary tract infections no recent fevers no nausea vomiting patient again does have significant abdominal pain. No other complaints no travel show sick contacts no recent surgery surgery was about 7 years ago MD Complaint: dysuria, pelvic pain -: days(s) Location: suprapubic Severity: moderate Severity scale (1-10): 4 Quality: cramping, aching Consistency: intermittent Improves with: none Worsens with: none Patient : No Associated Symptoms: abdominal pain, nausea/vomiting, fever/chills, dysuria, weakness - Related Data Home Medications Medication Instructions Recorded Confirmed Omeprazole [PriLOSEC] 20 mg PO Q48H 02/05/15 03/21/22 Meclizine [Antivert] 25 mg PO DAILY PRN 09/01/16 03/21/22 Potassium Chloride [K-Tab ER] 10 meq PO HS 09/01/16 03/21/22 Melatonin [Melatonin ER] 10 mg PO HS PRN 10/15/19 03/21/22 Furosemide [Lasix] 40 mg PO HS 06/02/20 03/21/22 Propafenone HCl 150 mg PO BID 06/02/20 03/21/22 Aspirin EC [Ecotrin] 325 mg PO DAILY 04/25/21 03/21/22 Magnesium 250 mg PO DAILY 04/25/21 03/21/22 Ondansetron [Zofran] 4 mg PO BID PRN 03/21/22 03/21/22 Zolpidem [Ambien] 5 mg PO HS PRN 03/21/22 03/21/22 Previous Rx's Medication Instructions Recorded Metoprolol Tartrate [Lopressor] 25 mg PO BID #60 tab 12/21/16 Docusate [Colace] 100 mg PO DAILY #30 capsule 03/22/22 Naproxen [Naprosyn] 250 mg PO BID 7 Days #14 tab 03/22/22 traMADol HCl [Ultram] 50 mg PO DAILY PRN 3 Days #3 tab 03/22/22 Ciprofloxacin HCl [Cipro] 500 mg PO Q12HR #14 tablet 09/07/22 Allergies Allergy/AdvReac Type Severity Reaction Status Date / Time ether Allergy Anaphylaxis Verified 09/06/22 19:21 formaldehyde Allergy Anaphylaxis Verified 09/06/22 19:21 tetanus and diphtheria Allergy Unknown Verified 09/06/22 19:21 toxoids [tetanus & diphtheria toxoids] codeine AdvReac Nausea Verified 09/06/22 19:21 Review of Systems ROS Statement: Those systems with pertinent positive or pertinent negative responses have been documented in the HPI. ROS Other: All systems not noted in ROS Statement are negative. Past Medical History Past Medical History: Atrial Fibrillation, Cancer, GERD/Reflux, Hypertension, Osteoarthritis (OA) Additional Past Medical History / Comment(s): bladder cancer with urostomy, Small Bowel Obstruction, vertigo History of Any Multi-Drug Resistant Organisms: None Reported Past Surgical History: Ablation, Bladder Surgery, Heart Catheterization, Hernia Repair, Hysterectomy, Orthopedic Surgery, Pacemaker, Tonsillectomy Additional Past Surgical History / Comment(s): LEFT HIP SURGERY x 5, GRAFTS AND MARNIE 2015, ablasion CARDIOVERSION, urostomy 10/2010, cataracts 2017 Past Anesthesia/Blood Transfusion Reactions: Previous Problems w/ Anesthesia Additional Past Anesthesia/Blood Transfusion Reaction / Comment(s): asthma attack Type of Cardiac Device: Permanent Pacemaker Device Placement Date:: 2012 Past Psychological History: Anxiety Smoking Status: Former smoker Past Alcohol Use History: Occasional Past Drug Use History: None Reported - Past Family History Mother Family Medical History: Asthma, GERD/Reflux Additional Family Medical History / Comment(s): diverticulitus, glaucoma Father Family Medical History: Hyperlipidemia Additional Family Medical History / Comment(s): stroke, brain tumour General Exam Limitations: physical limitation General appearance: alert, in no apparent distress Head exam: Present: atraumatic, normocephalic, normal inspection Eye exam: Present: normal appearance, PERRL, EOMI. Absent: scleral icterus, conjunctival injection, periorbital swelling ENT exam: Present: normal exam, mucous membranes moist Neck exam: Present: normal inspection. Absent: tenderness, meningismus, lymp hadenopathy Respiratory exam: Present: normal lung sounds bilaterally. Absent: respiratory distress, wheezes, rales, rhonchi, stridor Cardiovascular Exam: Present: regular rate, normal rhythm, normal heart sounds. Absent: systolic murmur, diastolic murmur, rubs, gallop, clicks GI/Abdominal exam: Present: soft, normal bowel sounds. Absent: distended, tenderness, guarding, rebound, rigid Extremities exam: Present: normal inspection, full ROM, normal capillary refill. Absent: tenderness, pedal edema, joint swelling, calf tenderness Back exam: Present: normal inspection Neurological exam: Present: alert, oriented X3, CN II-XII intact Psychiatric exam: Present: normal affect, normal mood Skin exam: Present: warm, dry, intact, normal color. Absent: rash Course Vital Signs 09/06/22 09/07/22 19:21 00:10 Temperature 98.1 F Pulse Rate 90 98 Respiratory 18 18 Rate Blood Pressure 157/88 156/75 O2 Sat by Pulse 96 99 Oximetry - Reevaluation(s) Reevaluation #1: 09/06/22 23:11 Medical records reviewed Reevaluation #2: 09/06/22 23:11 Patient's pain is improved Reevaluation #3: 09/07/22 01:26 Patient informed results and questions answered Medical Decision Making - Medical Decision Making 76 female to the emergency department for evaluation. Patient resents today for evaluation of abdominal pain history of urostomy with likely UTI. Patient does have urinary tract infection - Lab Data Result diagrams: 09/06/22 22:35 09/06/22 22:35 Lab Results 09/06/22 09/06/22 09/06/22 Range/Units 19:25 22:35 22:35 WBC 7.3 (3.8-10.6) k/uL RBC 4.23 (3.80-5.40) m/uL Hgb 11.3 L (11.4-16.0) gm/dL Hct 35.3 (34.0-46.0) % MCV 83.3 (80.0-100.0) fL MCH 26.6 (25.0-35.0) pg MCHC 31.9 (31.0-37.0) g/dL RDW 13.3 (11.5-15.5) % Plt Count 299 (150-450) k/uL MPV 8.0 Neutrophils % 73 % Lymphocytes % 15 % Monocytes % 6 % Eosinophils % 4 % Basophils % 1 % Neutrophils # 5.3 (1.3-7.7) k/uL Lymphocytes # 1.1 (1.0-4.8) k/uL Monocytes # 0.4 (0-1.0) k/uL Eosinophils # 0.3 (0-0.7) k/uL Basophils # 0.1 (0-0.2) k/uL Hypochromasia Moderate Sodium 137 (137-145) mmol/L Potassium 4.2 (3.5-5.1) mmol/L Chloride 107 (98-107) mmol/L Carbon Dioxide 23 (22-30) mmol/L Anion Gap 7 mmol/L BUN 18 H (7-17) mg/dL Creatinine 0.96 (0.52-1.04) mg/dL Est GFR (CKD-EPI)AfAm 66 (>60 ml/min/1.73 sqM) Est GFR (CKD-EPI)NonAf 57 (>60 ml/min/1.73 sqM) Glucose 91 (74-99) mg/dL Calcium 9.6 (8.4-10.2) mg/dL Phosphorus 2.8 (2.5-4.5) mg/dL Magnesium 2.4 H (1.6-2.3) mg/dL Total Bilirubin 0.3 (0.2-1.3) mg/dL AST 20 (14-36) U/L ALT 28 (4-34) U/L Alkaline Phosphatase 165 H (38-126) U/L Total Protein 6.8 (6.3-8.2) g/dL Albumin 3.9 (3.5-5.0) g/dL Amylase 57 (30-110) U/L Lipase 177 (23-300) U/L Urine Color Yellow Urine Appearance Turbid H (Clear) Urine pH 8.5 H (5.0-8.0) Ur Specific [place] 1.015 (1.001-1.035) Urine Protein 1+ H (Negative) Urine Glucose (UA) Negative (Negative) Urine Ketones Negative (Negative) Urine Blood Negative (Negative) Urine Nitrite Positive H (Negative) Urine Bilirubin Negative (Negative) Urine Urobilinogen <2.0 (<2.0) mg/dL Ur Leukocyte Esterase Large H (Negative) Urine RBC 3 (0-5) /hpf Urine WBC 11 H (0-5) /hpf Ur Squamous Epith Cells <1 (0-4) /hpf Triple Phos Crystals Many H (None) /hpf Urine Bacteria Occasional H (None) /hpf Hyaline Casts 5 H (0-2) /lpf Urine Mucus Occasional H (None) /hpf - Radiology Data Radiology results: report reviewed (CT of the abdomen and pelvis negative for acute disease), image reviewed Disposition Clinical Impression: Abdominal pain, UTI (urinary tract infection) Disposition: HOME SELF-CARE Condition: Good Instructions (If sedation given, give patient instructions): Urinary Tract Infection in Women (ED), Abdominal Pain (ED) Prescriptions: Ciprofloxacin HCl [Cipro] 500 mg PO Q12HR #14 tablet Is patient prescribed a controlled substance at d/c from ED?: No Referrals: Nita Rice MD [Primary Care Provider] - 1-2 days Time of Disposition: 01:30
[2022-09-06] MEDS ORDERED: SODIUM CHLORIDE 0.9% 1,000 ML IV STA ×2 (22:13)
[2022-09-06 22:48] LABS: Basophils # (A) 0.1 k/uL (0-0.2); Basophils % (A) 1 %; Eosinophils # (A) 0.3 k/uL (0-0.7); Eosinophils % (A) 4 %; HCT 35.3 % (34.0-46.0); HGB 11.3 gm/dL (11.4-16.0); Hypochromasia Moderate; Lymphocytes # (A) 1.1 k/uL (1.0-4.8); Lymphocytes % (A) 15 %; MCH 26.6 pg (25.0-35.0); MCHC 31.9 g/dL (31.0-37.0); MCV 83.3 fL (80.0-100.0); Monocytes # (A) 0.4 k/uL (0-1.0); Monocytes % (A) 6 %; Neutrophils # (A) 5.3 k/uL (1.3-7.7); Neutrophils % (A) 73 %; Platelet Count 299 k/uL (150-450); RBC 4.23 m/uL (3.80-5.40); RDW 13.3 % (11.5-15.5); WBC 7.3 k/uL (3.8-10.6)
[2022-09-06 22:57] LABS: Albumin 3.9 g/dL (3.5-5.0); Calcium 9.6 mg/dL (8.4-10.2); Magnesium 2.4 mg/dL (1.6-2.3); Phosphorus 2.8 mg/dL (2.5-4.5); Potassium 4.2 mmol/L (3.5-5.1); Total Bilirubin 0.3 mg/dL (0.2-1.3); Total Protein 6.8 g/dL (6.3-8.2)
[2022-09-06] MEDS ORDERED: MORPHINE SULFATE 4 MG/ML SYRINGE IVP STA (23:11)
[2022-09-06] MEDS ORDERED: MORPHINE SULFATE 4 MG/ML SYRINGE IV PRN (23:11)
--- NOTE | 2022-09-07 00:22 | CT ---
EXAMINATION TYPE: CT abdomen pelvis w con DATE OF EXAM: 09/06/2022 COMPARISON: 04/25/2021 HISTORY: abd pain x1 week. frequent uti's. urostomy several years ago CT DLP: mGycm Automated exposure control for dose reduction was used. CONTRAST: Performed with IV Contrast, patient injected with 80 mL of Isovue 300. Images obtained from the diaphragm to the floor the pelvis with the IV contrast. Lung bases are clear of infiltrate. There is large hiatal hernia. Heart size is fairly normal. No per icardial effusion. Liver spleen pancreas and gallbladder appear intact. The bile ducts are not dilate d. There is no adrenal mass. Right kidney shows significant cortical thinning. Left kidney shows no hydr onephrosis. The left ureter is not dilated. There is no retroperitoneal adenopathy. There is left hip spaces. There is apparent cystectomy. There is ileocolic conduit. There is previous small bowel surg tucker related to the ileal conduit. There is some fullness of the right renal pelvis and right ureter. No free fluid in the pelvis. No pelvic mass. There is no mesenteric edema. No ascites or free air. No sign of a bowel obstruction. There are multiple large bowel diverticula. No diverticulitis. The lumb ar vertebrae have normal alignment. No compression fracture. Posterior elements are intact. Bony pelv is is intact. IMPRESSION: Previous bladder surgery. Ileal conduit and ileostomy. Advanced right renal atrophy which is similar to old exam. There is mild right-sided hydronephrosis and hydroureter which is improved compared to l ast exam. No evidence of left-sided renal obstruction. Large hiatal hernia unchanged. No acute abnormality within the abdomen and pelvis. There is some colo matt diverticulosis without diverticulitis.
[2022-09-07] MEDS ORDERED: CIPROFLOXACIN HCL 500 MG TAB PO STA (01:23)
[2022-09-07 01:35] VITALS: BP 136/63; PULSE 68; RESP 16; TEMP 97.2
== END 2022-09-07 02:01 | disposition home or self-care (01) ==
LOC: EC 19:18
DX: N39.0 Urinary tract infection, site not specified (principal); K44.9 Diaphragmatic hernia without obstruction or gangrene; K57.30 Diverticulosis of large intestine without perforation or abscess without bleeding; I48.91 Unspecified atrial fibrillation; K21.9 Gastro-esophageal reflux disease without esophagitis; I10 Essential (primary) hypertension; M19.90 Unspecified osteoarthritis, unspecified site; F41.9 Anxiety disorder, unspecified; Z87.891 Personal history of nicotine dependence; Z79.1 Long term (current) use of non-steroidal anti-inflammatories (NSAID); Z79.82 Long term (current) use of aspirin; Z79.899 Other long term (current) drug therapy; Z88.4 Allergy status to anesthetic agent; Z88.1 Allergy status to other antibiotic agents; Z88.7 Allergy status to serum and vaccine; Z88.5 Allergy status to narcotic agent
CPT/HCPCS: 36415; 80053; 82150; 83690; 83735; 84100; 85025; 81001; 74177; 99284; 96365; 96375; 96361; J2270; J0696; Q9967

== ENCOUNTER 2022-12-30 19:47 | Emergency (ER) | payer MEDICARE, OTHER ==
[2022-12-30 20:01] VITALS: RESP 18; TEMP 98
[2022-12-30] MEDS ORDERED: SODIUM CHLORIDE 0.9% 500 ML 500 ML IV STA (20:14)
[2022-12-30] MEDS ORDERED: ONDANSETRON 4 MG/2 ML VIAL IVP STA (20:14)
[2022-12-30] MEDS ORDERED: HYDROmorphone 0.5 MG/0.5 ML SYRINGE IVP STA (20:15)
[2022-12-30 20:33] LABS: Basophils # (A) 0.1 k/uL (0-0.2); Basophils % (A) 1 %; Eosinophils # (A) 0.3 k/uL (0-0.7); Eosinophils % (A) 3 %; HCT 36.4 % (34.0-46.0); HGB 11.8 gm/dL (11.4-16.0); Lymphocytes % (A) 10 %; MCH 25.4 pg (25.0-35.0); MCHC 32.3 g/dL (31.0-37.0); MCV 78.5 fL (80.0-100.0); Mean Platelet Volume 7.8; Microcytosis Slight; Monocytes # (A) 0.4 k/uL (0-1.0); Monocytes % (A) 4 %; Neutrophils # (A) 7.8 k/uL (1.3-7.7); Neutrophils % (A) 81 %; Platelet Count 266 k/uL (150-450); RBC 4.64 m/uL (3.80-5.40); RDW 15.5 % (11.5-15.5); WBC 9.6 k/uL (3.8-10.6)
[2022-12-30 20:49] LABS: Albumin 4.1 g/dL (3.5-5.0); Calcium 9.9 mg/dL (8.4-10.2); Potassium 4.4 mmol/L (3.5-5.1); Total Bilirubin 0.5 mg/dL (0.2-1.3); Total Protein 7.4 g/dL (6.3-8.2)
--- NOTE | 2022-12-30 20:50 | CT ---
EXAMINATION TYPE: CT abdomen pelvis wo con CT DLP: 745.5 mGycm, Automated exposure control for dose reduction was used. DATE OF EXAM: 12/30/2022 8:39 PM COMPARISON: CT abdomen pelvis most recent from 09/06/2022 CLINICAL INDICATION:Female, 77 years old with history of abdominal pain; abdominal pain since urostom y TECHNIQUE: Axial CT of the abdomen and pelvis. Sagittal and coronal reformats were created on a 3nder workstation. Contrast used: None Oral contrast used: without Oral Contrast FINDINGS: LOWER CHEST: Partially visualized cardiac conduction leads terminating in the right ventricle. ABDOMEN LIVER: Unremarkable GALLBLADDER AND BILE DUCTS: Unremarkable. PANCREAS: Unremarkable. SPLEEN: Unremarkable. ADRENAL GLANDS: Unchanged left adrenal nodule likely representing a benign lipid rich adrenal adenoma . The right jugular gland is also unchanged from prior with suspected small adrenal adenoma. KIDNEYS AND URETERS: Atrophic right kidney. The left kidney is normal for size without evidence of hy dronephrosis. PELVIS BLADDER: Postsurgical changes with cystectomy. There is diverting loop ileostomy present. REPRODUCTIVE: Uterus is not visualized and likely surgically absent. ABDOMEN & PELVIS STOMACH AND BOWEL: No evidence of bowel obstruction. Large hiatal hernia. Postsurgical changes to the mid bowel loops with history of known diverting loop ileostomy. Small bowel demonstrates multiple lo ops of fluid-filled small bowel. PERITONEUM/RETROPERITONEUM: No evidence of pneumoperitoneum or free fluid. VASCULATURE: Moderate atherosclerotic calcifications are present throughout the abdominal aorta and i ts branches. No evidence of aortic aneurysm. MUSCULOSKELETAL: Severe degeneration changes of the right hip with superior subluxation. There is kb nt and joint articulation. Left hip surgical changes with hardware appearing intact. Multilevel disc degeneration changes throughout the spine with levoscoliosis apex L2-L3. LYMPH NODES: No gross evidence for lymphadenopathy. SOFT TISSUE/ABDOMINAL WALL: Postsurgical changes anterior abdominal wall without evidence for organiz ing fluid collection. IMPRESSION: 1. Postsurgical changes with cystectomy and diverting loop ileostomy present. No evidence for parast omal hernia or other complicating process at the ileostomy site. No evidence for acute intra-abdomina l process. No evidence of obstructive uropathy on the left with atrophic right kidney. 2. Severe right hip osteoarthrosis with subluxed and superiorly migrated femoral head within the savanna tabulum. Similar prior imaging. 3. Large hiatal hernia.
[2022-12-30 21:04] LABS: Appearance,Urine Clear (Clear); Bacteria,Urine Many /hpf; Bilirubin,Urine Negative (Negative); Blood,Urine Negative (Negative); Color,Urine Yellow; Glucose,Urine (UA) Negative (Negative); Hyaline Casts,Urine 3 /lpf (0-2); Ketones,Urine Trace (Negative); Leukocyte Esterase,Urine Moderate (Negative); Nitrite,Urine Negative (Negative); PH, Urine 7.5 (5.0-8.0); Protein,Urine Trace (Negative); RBC,Urine 2 /hpf (0-5); Specific Gravity,Urine 1.015 (1.001-1.035); Urobilinogen,Urine <2.0 mg/dL (<2.0); WBC,Urine 37 /hpf (0-5)
[2022-12-30] MEDS ORDERED: SULFAMETHOX-TMP 800-160MG 1 EACH TAB PO STA (21:35)
--- NOTE | 2022-12-30 21:36 | ED ---
Abdominal Pain HPI - General Chief Complaint: Abdominal Pain Stated Complaint: ABD Pain Time Seen by Provider: 12/30/22 19:56 Source: patient, EMS, RN notes reviewed Mode of arrival: EMS Limitations: no limitations - History of Present Illness Initial Comments: 77-year-old female presents emergency Department chief complaint abdominal pain. Patient states that she feels very bloated, states that she is having discomfort is concerned she may have an obstruction. Patient states she's had recurrent obstruction states after her urostomy surgery for bladder cancer. Patient states that she felt nauseated states that she did have a bowel movement last several days but did not have once morning. She is passing gas. She has any chest pain or shortness of breath. - Related Data Home Medications Medication Instructions Recorded Confirmed Omeprazole [PriLOSEC] 20 mg PO DAILY PRN 02/05/15 12/30/22 Meclizine [Antivert] 25 mg PO BID PRN 09/01/16 12/30/22 Potassium Chloride [K-Tab ER] 10 meq PO DAILY 09/01/16 12/30/22 Furosemide [Lasix] 40 mg PO HS 06/02/20 12/30/22 Propafenone HCl 150 mg PO DAILY 06/02/20 12/30/22 Aspirin EC [Ecotrin] 325 mg PO DAILY 04/25/21 12/30/22 Ondansetron [Zofran] 4 mg PO BID PRN 03/21/22 12/30/22 Cholestyramine (with Sugar) 4 gm PO BID PRN 12/30/22 12/30/22 [Cholestyramine Powder] Ibuprofen [Motrin] 800 mg PO DAILY PRN 12/30/22 12/30/22 Naproxen [EC-Naprosyn] 500 mg PO DAILY PRN 12/30/22 12/30/22 Previous Rx's Medication Instructions Recorded Metoprolol Tartrate [Lopressor] 25 mg PO BID #60 tab 12/21/16 Sulfamethox-Tmp 800-160Mg [Bactrim 1 each PO Q12HR #14 tab 12/30/22 Ds] Allergies Allergy/AdvReac Type Severity Reaction Status Date / Time ether Allergy Anaphylaxis Verified 12/30/22 21:23 formaldehyde Allergy Anaphylaxis Verified 12/30/22 21:23 tetanus and diphtheria Allergy Unknown Verified 12/30/22 21:23 toxoids [tetanus & diphtheria toxoids] codeine AdvReac Nausea Verified 12/30/22 21:23 Review of Systems ROS Statement: Those systems with pertinent positive or pertinent negative responses have been documented in the HPI. ROS Other: All systems not noted in ROS Statement are negative. Past Medical History Past Medical History: Atrial Fibrillation, Cancer, GERD/Reflux, Hypertension, Osteoarthritis (OA) Additional Past Medical History / Comment(s): bladder cancer with urostomy, Small Bowel Obstruction, vertigo History of Any Multi-Drug Resistant Organisms: None Reported Past Surgical History: Ablation, Bladder Surgery, Heart Catheterization, Hernia Repair, Hysterectomy, Orthopedic Surgery, Pacemaker, Tonsillectomy Additional Past Surgical History / Comment(s): LEFT HIP SURGERY x 5, GRAFTS AND MARNIE 2015, ablasion CARDIOVERSION, urostomy 10/2010, cataracts 2017 Past Anesthesia/Blood Transfusion Reactions: Previous Problems w/ Anesthesia Additional Past Anesthesia/Blood Transfusion Reaction / Comment(s): asthma attack Type of Cardiac Device: Permanent Pacemaker Device Placement Date:: 2012 Past Psychological History: Anxiety Smoking Status: Former smoker Past Alcohol Use History: Occasional Past Drug Use History: None Reported - Past Family History Mother Family Medical History: Asthma, GERD/Reflux Additional Family Medical History / Comment(s): diverticulitus, glaucoma Father Family Medical History: Hyperlipidemia Additional Family Medical History / Comment(s): stroke, brain tumour General Exam Limitations: no limitations General appearance: alert, in no apparent distress Head exam: Present: atraumatic, normocephalic, normal inspection Eye exam: Present: normal appearance, PERRL, EOMI. Absent: scleral icterus, conjunctival injection, periorbital swelling Neck exam: Present: normal inspection, full ROM. Absent: tenderness, meningismus, lymphadenopathy Respiratory exam: Present: normal lung sounds bilaterally. Absent: respiratory distress, wheezes, rales, rhonchi, stridor Cardiovascular Exam: Present: regular rate, normal rhythm, normal heart sounds. Absent: systolic murmur, diastolic murmur, rubs, gallop, clicks GI/Abdominal exam: Present: soft, tenderness, normal bowel sounds. Absent: distended, guarding, rebound, rigid Course Vital Signs 12/30/22 12/30/22 19:59 22:06 Temperature 98.0 F Pulse Rate 76 65 Respiratory 18 18 Rate Blood Pressure 149/107 121/72 O2 Sat by Pulse 98 97 Oximetry Medical Decision Making - Medical Decision Making Was pt. sent in by a medical professional or institution (BETH Ansari, [employer], urgent care, hospital, or usp...) When possible be specific @ -No Did you speak to anyone other than the patient for history (EMS, parent, family, police, friend...)? What history was obtained from this source @ -No Did you review nursing and triage notes (agree or disagree)? Why? @ -I reviewed and agree with nursing and triage notes Were old charts reviewed (outside hosp., previous admission, EMS record, old EKG, old radiological studies, urgent care reports/EKG's, usp records)? Report findings @ -Prior laboratory studies, imaging and urine cultures were reviewed Differential Diagnosis (chest pain, altered mental status, abdominal pain women, abdominal pain men, vaginal bleeding, weakness, fever, dyspnea, syncope, headache, dizziness, GI bleed, back pain, seizure, CVA, palpatations, mental health, musculoskeletal)? @ -[Differential Abdominal Pain Women: Appendicitis, Cholecystitis, diverticulosis, ischemic bowel, pancreatitis, hepatitis, UTI, gastroenteritis, AAA, incarcerated hernia, bowel obstruction, constipation, inflammatory bowel, hepatitis, peptic ulcer disease, splenic infarction, perforated viscus, vulvitis, ovarian torsion, PID, kidney stone, placenta abruption, this is not meant to be an all-inclusive list EKG interpreted by me (3pts min.). @ -None X-rays interpreted by me (1pt min.). @ -None done CT interpreted by me (1pt min.). @ -CT abdomen and pelvis shows no acute processes. Patient does have a large hiatal hernia, postsurgical changes no acute process. U/S interpreted by me (1pt. min.). @ -None done What testing was considered but not performed or refused? (CT, X-rays, U/S, labs)? Why? @ -None What meds were considered but not given or refused? Why? @ -None Did you discuss the management of the patient with other professionals (professionals i.e. BETH Ansari, [employer], lab, RT, psych nurse, social work specialist, road crossing guard, teacher, chief creative officer, case packer and sealer)? Give summary @ -No Was smoking cessation discussed for >3mins.? @ -No Was critical care preformed (if so, how long)? @ -No Were there social determinants of health that impacted care today? How? (Homelessness, low income, unemployed, alcoholism, drug addiction, transportation, low edu. Level, literacy, decrease access to med. care, long term, rehab)? @ -No Was there de-escalation of care discussed even if they declined (Discuss DNR or withdrawal of care, Hospice)? DNR status @ -No What co-morbidities impacted this encounter? (DM, HTN, Smoking, COPD, CAD, Canc er, CVA, ARF, Chemo, Hep., AIDS, mental health diagnosis, sleep apnea, morbid obesity)? @ -Bladder cancer, multiple abdominal surgeries Was patient admitted / discharged? Hospital course, mention meds given and route, prescriptions, significant lab abnormalities, going to OR and other pertinent info. @ -Discharged patient does not have evidence of bowel obstruction. Patient does have evidence of a UTI. Patient we placed on oral antibiotics based on her prior urinary culture. Undiagnosed new problem with uncertain prognosis? @ -No Drug Therapy requiring intensive monitoring for toxicity (Heparin, Nitro, Insulin, Cardizem)? @ -No Were any procedures done? @ -No Diagnosis/symptom? @ -UTI, abdominal pain Acute, or Chronic, or Acute on Chronic? @ -Acute Uncomplicated (without systemic symptoms) or Complicated (systemic symptoms)? @ -Uncomplicated Side effects of treatment? @ -No Exacerbation, Progression, or Severe Exacerbation? @ -No Poses a threat to life or bodily function? How? (Chest pain, [place], [place], pneumonia, PE, COPD, DKA, ARF, appy, cholecystitis, CVA, Diverticulitis, Homicidal, Suicidal, threat to staff... and all critical care pts) @ -No - Lab Data Result diagrams: 12/30/22 20:22 12/30/22 20:22 Lab Results 12/30/22 12/30/22 12/30/22 Range/Units 20: 20: 20: WBC 9.6 (3.8-10.6) k/uL RBC 4.64 (3.80-5.40) m/uL Hgb 11.8 (11.4-16.0) gm/dL Hct 36.4 (34.0-46.0) % MCV 78.5 L (80.0-100.0) fL MCH 25.4 (25.0-35.0) pg MCHC 32.3 (31.0-37.0) g/dL RDW 15.5 (11.5-15.5) % Plt Count 266 (150-450) k/uL MPV 7.8 Neutrophils % 81 % Lymphocytes % 10 % Monocytes % 4 % Eosinophils % 3 % Basophils % 1 % Neutrophils # 7.8 H (1.3-7.7) k/uL Lymphocytes # 1.0 (1.0-4.8) k/uL Monocytes # 0.4 (0-1.0) k/uL Eosinophils # 0.3 (0-0.7) k/uL Basophils # 0.1 (0-0.2) k/uL Microcytosis Slight Sodium 137 (137-145) mmol/L Potassium 4.4 (3.5-5.1) mmol/L Chloride 105 (98-107) mmol/L Carbon Dioxide 22 (22-30) mmol/L Anion Gap 10 mmol/L BUN 23 H (7-17) mg/dL Creatinine 1.01 (0.52-1.04) mg/dL Est GFR (CKD-EPI)AfAm 62 (>60 ml/min/1.73 sqM) Est GFR (CKD-EPI)NonAf 54 (>60 ml/min/1.73 sqM) Glucose 109 H (74-99) mg/dL Plasma Lactic Acid Aidan 1.1 (0.7-2.0) mmol/L Calcium 9.9 (8.4-10.2) mg/dL Total Bilirubin 0.5 (0.2-1.3) mg/dL AST 23 (14-36) U/L ALT 16 (4-34) U/L Alkaline Phosphatase 157 H (38-126) U/L Total Protein 7.4 (6.3-8.2) g/dL Albumin 4.1 (3.5-5.0) g/dL Lipase 163 (23-300) U/L Urine Color Urine Appearance (Clear) Urine pH (5.0-8.0) Ur Specific [place] (1.001-1.035) Urine Protein (Negative) Urine Glucose (UA) (Negative) Urine Ketones (Negative) Urine Blood (Negative) Urine Nitrite (Negative) Urine Bilirubin (Negative) Urine Urobilinogen (<2.0) mg/dL Ur Leukocyte Esterase (Negative) Urine RBC (0-5) /hpf Urine WBC (0-5) /hpf Urine Bacteria (None) /hpf Hyaline Casts (0-2) /lpf 12/30/22 Range/Units 20:47 WBC (3.8-10.6) k/uL RBC (3.80-5.40) m/uL Hgb (11.4-16.0) gm/dL Hct (34.0-46.0) % MCV (80.0-100.0) fL MCH (25.0-35.0) pg MCHC (31.0-37.0) g/dL RDW (11.5-15.5) % Plt Count (150-450) k/uL MPV Neutrophils % % Lymphocytes % % Monocytes % % Eosinophils % % Basophils % % Neutrophils # (1.3-7.7) k/uL Lymphocytes # (1.0-4.8) k/uL Monocytes # (0-1.0) k/uL Eosinophils # (0-0.7) k/uL Basophils # (0-0.2) k/uL Microcytosis Sodium (137-145) mmol/L Potassium (3.5-5.1) mmol/L Chloride (98-107) mmol/L Carbon Dioxide (22-30) mmol/L Anion Gap mmol/L BUN (7-17) mg/dL Creatinine (0.52-1.04) mg/dL Est GFR (CKD-EPI)AfAm (>60 ml/min/1.73 sqM) Est GFR (CKD-EPI)NonAf (>60 ml/min/1.73 sqM) Glucose (74-99) mg/dL Plasma Lactic Acid Aidan (0.7-2.0) mmol/L Calcium (8.4-10.2) mg/dL Total Bilirubin (0.2-1.3) mg/dL AST (14-36) U/L ALT (4-34) U/L Alkaline Phosphatase (38-126) U/L Total Protein (6.3-8.2) g/dL Albumin (3.5-5.0) g/dL Lipase (23-300) U/L Urine Color Yellow Urine Appearance Clear (Clear) Urine pH 7.5 (5.0-8.0) Ur Specific [place] 1.015 (1.001-1.035) Urine Protein Trace H (Negative) Urine Glucose (UA) Negative (Negative) Urine Ketones Trace H (Negative) Urine Blood Negative (Negative) Urine Nitrite Negative (Negative) Urine Bilirubin Negative (Negative) Urine Urobilinogen <2.0 (<2.0) mg/dL Ur Leukocyte Esterase Moderate H (Negative) Urine RBC 2 (0-5) /hpf Urine WBC 37 H (0-5) /hpf Urine Bacteria Many H (None) /hpf Hyaline Casts 3 H (0-2) /lpf Disposition Clinical Impression: UTI (urinary tract infection), Abdominal pain, Enteritis Disposition: HOME SELF-CARE Condition: Stable Instructions (If sedation given, give patient instructions): Abdominal Pain (ED) Additional Instructions: Please return to the Emergency Department if symptoms worsen or any other concerns. Prescriptions: Sulfamethox-Tmp 800-160Mg [Bactrim Ds] 1 each PO Q12HR #14 tab Is patient prescribed a controlled substance at d/c from ED?: No Referrals: Nita Rice MD [Primary Care Provider] - 1-2 days Time of Disposition: 21:36
[2022-12-30 22:08] VITALS: BP 121/72; PULSE 65
== END 2022-12-30 22:31 | disposition home or self-care (01) ==
LOC: EC 19:47
DX: N39.0 Urinary tract infection, site not specified (principal); K52.9 Noninfective gastroenteritis and colitis, unspecified; I10 Essential (primary) hypertension; K21.9 Gastro-esophageal reflux disease without esophagitis; Z95.5 Presence of coronary angioplasty implant and graft; Z90.89 Acquired absence of other organs; Z90.710 Acquired absence of both cervix and uterus; Z88.7 Allergy status to serum and vaccine; Z88.8 Allergy status to other drugs, medicaments and biological substances; Z95.0 Presence of cardiac pacemaker; Z79.82 Long term (current) use of aspirin; Z79.899 Other long term (current) drug therapy; Z87.891 Personal history of nicotine dependence
CPT/HCPCS: 36415; 80053; 83605; 83690; 85025; 81001; 87086; 74176; 99285; 96374; 96375; 96361; J2405; J1170

== ENCOUNTER 2023-04-26 17:17 | Observation (INO) | payer MEDICARE, OTHER ==
[2023-04-26] MEDS ORDERED: ACETAMINOPHEN TAB 325 MG TAB PO STA (17:38)
[2023-04-26 18:36] LABS: ALT 25 U/L (4-34); AST 46 U/L (14-36); African American GFR (CKD) 77 (>60 ml/min/1.73 sqM); Albumin 3.4 g/dL (3.5-5.0); Alkaline Phosphatase 144 U/L (38-126); Anion Gap 8 mmol/L; Blood Urea Nitrogen 15 mg/dL (7-17); Calcium 8.7 mg/dL (8.4-10.2); Carbon Dioxide 24 mmol/L (22-30); Chloride 104 mmol/L (98-107); Glucose 97 mg/dL (74-99); Non-African American GFR(CKD) 67 (>60 ml/min/1.73 sqM); Potassium 3.9 mmol/L (3.5-5.1); Sodium 136 mmol/L (137-145); Total Bilirubin 0.8 mg/dL (0.2-1.3); Total Protein 6.3 g/dL (6.3-8.2)
[2023-04-26 18:40] LABS: Appearance,Urine Turbid (Clear); Bacteria,Urine Moderate /hpf; Bilirubin,Urine Negative (Negative); Blood,Urine Negative (Negative); Color,Urine Yellow; Glucose,Urine (UA) Negative (Negative); Ketones,Urine Negative (Negative); Leukocyte Esterase,Urine Large (Negative); Mucus,Urine Occasional /hpf; Nitrite,Urine Positive (Negative); PH, Urine 8.5 (5.0-8.0); Protein,Urine 1+ (Negative); RBC,Urine 10 /hpf (0-5); Specific Gravity,Urine 1.013 (1.001-1.035); Squamous Epithelial Cell,Urine <1 /hpf (0-4); WBC,Urine 27 /hpf (0-5)
--- NOTE | 2023-04-26 18:43 | XR ---
EXAMINATION TYPE: XR chest 2V DATE OF EXAM: 04/26/2023 6:38 PM COMPARISON: Chest radiographs from 09/05/2021 TECHNIQUE: XR chest 2V Frontal and lateral views of the chest. CLINICAL INDICATION:Female, 77 years old with history of Fever; FINDINGS: Lungs/Pleura: There is no evidence of pleural effusion, focal consolidation, or pneumothorax. Pulmonary vascularity: Unremarkable. Heart/mediastinum: Cardiomediastinal silhouette is unremarkable. Atherosclerotic calcifications are seen in the aorta. Two lead cardiac conduction device overlying the left hemithorax with lead tips pr ojecting over the right ventricle and right atrium. Musculoskeletal: No acute osseous pathology. IMPRESSION: No acute cardiopulmonary disease/process.
[2023-04-26] MEDS: SODIUM CHLORIDE 0.9% 500 ML 500 ML IV SCH ×2 (19:04→19:45)
[2023-04-26] MEDS ORDERED: cefTRIAXone IN SWFI 1,000 MG/10 ML SYRINGE IVP STA (19:25)
--- NOTE | 2023-04-26 19:25 | ED ---
General Adult HPI - General Chief complaint: Weakness Stated complaint: Weakness Time Seen by Provider: 04/26/23 17:19 Source: patient, EMS Mode of arrival: EMS Limitations: no limitations - History of Present Illness Initial comments: This is a 77-year-old female with a past mental history including hypertension as well as right-sided urostomy presents emergency department via EMS for increasing weakness. The patient stated that she became so weak today that she could not get out of the chair therefore she called EMS. The patient stated that she has been feeling fevers and chills at home and stated that the symptoms been present the last 3 days worsening. On arrival, the patient complained of continued fever with an oral temperature of 103F. The patient however denied any acute pain or distress. The patient was resting in bed comfortably. - Related Data Home Medications Medication Instructions Recorded Confirmed Omeprazole [PriLOSEC] 20 mg PO DAILY PRN 02/05/15 12/30/22 Meclizine [Antivert] 25 mg PO BID PRN 09/01/16 12/30/22 Potassium Chloride [K-Tab ER] 10 meq PO DAILY 09/01/16 12/30/22 Furosemide [Lasix] 40 mg PO HS 06/02/20 12/30/22 Propafenone HCl 150 mg PO DAILY 06/02/20 12/30/22 Aspirin EC [Ecotrin] 325 mg PO DAILY 04/25/21 12/30/22 Ondansetron [Zofran] 4 mg PO BID PRN 03/21/22 12/30/22 Cholestyramine (with Sugar) 4 gm PO BID PRN 12/30/22 12/30/22 [Cholestyramine Powder] Ibuprofen [Motrin] 800 mg PO DAILY PRN 12/30/22 12/30/22 Naproxen [EC-Naprosyn] 500 mg PO DAILY PRN 12/30/22 12/30/22 Previous Rx's Medication Instructions Recorded Metoprolol Tartrate [Lopressor] 25 mg PO BID #60 tab 12/21/16 Sulfamethox-Tmp 800-160Mg [Bactrim 1 each PO Q12HR #14 tab 12/30/22 Ds] Allergies Allergy/AdvReac Type Severity Reaction Status Date / Time ether Allergy Anaphylaxis Verified 04/26/23 17:29 formaldehyde Allergy Anaphylaxis Verified 04/26/23 17:29 tetanus and diphtheria Allergy Unknown Verified 04/26/23 17:29 toxoids [tetanus & diphtheria toxoids] codeine AdvReac Nausea Verified 04/26/23 17:29 Review of Systems ROS Statement: Those systems with pertinent positive or pertinent negative responses have been documented in the HPI. ROS Other: All systems not noted in ROS Statement are negative. Past Medical History Past Medical History: Atrial Fibrillation, Cancer, GERD/Reflux, Hypertension, Osteoarthritis (OA) Additional Past Medical History / Comment(s): bladder cancer with urostomy, Small Bowel Obstruction, vertigo History of Any Multi-Drug Resistant Organisms: None Reported Past Surgical History: Ablation, Bladder Surgery, Heart Catheterization, Hernia Repair, Hysterectomy, Orthopedic Surgery, Pacemaker, Tonsillectomy Additional Past Surgical History / Comment(s): LEFT HIP SURGERY x 5, GRAFTS AND MARNIE 2015, ablasion CARDIOVERSION, urostomy 10/2010, cataracts 2017 Past Anesthesia/Blood Transfusion Reactions: Previous Problems w/ Anesthesia Additional Past Anesthesia/Blood Transfusion Reaction / Comment(s): asthma attack Type of Cardiac Device: Permanent Pacemaker Device Placement Date:: 2012 Past Psychological History: Anxiety Smoking Status: Former smoker Past Alcohol Use History: Occasional Past Drug Use History: None Reported - Past Family History Mother Family Medical History: Asthma, GERD/Reflux Additional Family Medical History / Comment(s): diverticulitus, glaucoma Father Family Medical History: Hyperlipidemia Additional Family Medical History / Comment(s): stroke, brain tumour General Exam Limitations: no limitations General appearance: alert, in no apparent distress Head exam: Present: atraumatic, normocephalic, normal inspection Eye exam: Present: normal appearance, PERRL Pupils: Present: normal accommodation ENT exam: Present: normal exam, normal oropharynx, mucous membranes moist Neck exam: Present: normal inspection, full ROM Respiratory exam: Present: normal lung sounds bilaterally Cardiovascular Exam: Present: regular rate, normal rhythm, normal heart sounds GI/Abdominal exam: Present: soft, normal bowel sounds, other (R anterior urostomy bag present without tenderness or erythema) Extremities exam: Present: normal inspection, full ROM Back exam: Present: normal inspection, full ROM Neurological exam: Present: alert, oriented X3, CN II-XII intact Psychiatric exam: Present: normal affect, normal mood Skin exam: Present: warm, dry Course Vital Signs 04/26/23 04/26/23 17:29 20:00 Temperature 103.0 F H 99.1 F Pulse Rate 75 Respiratory 18 Rate Blood Pressure 145/70 O2 Sat by Pulse 93 L Oximetry EKG Findings - EKG Comments: EKG Findings:: An EKG was obtained and was interpreted by myself showing a rate of 76, MD interval 156, QRS duration 102 and QTC of 373. This EKG showed a normal sinus rhythm with an incomplete right bundle branch block. There was however no ST segment elevation or depression noted. Medical Decision Making - Medical Decision Making Was pt. sent in by a medical professional or institution (, BETH, RRT, urgent care, hospital, or alf...) When possible be specific @ -No Did you speak to anyone other than the patient for history (EMS, parent, family, police, friend...)? What history was obtained from this source @ -No Did you review nursing and triage notes (agree or disagree)? Why? @ -I reviewed and agree with nursing and triage notes Were old charts reviewed (outside hosp., previous admission, EMS record, old EKG, old radiological studies, urgent care reports/EKG's, alf records)? Report findings @ -No old charts were reviewed Differential Diagnosis (chest pain, altered mental status, abdominal pain women, abdominal pain men, vaginal bleeding, weakness, fever, dyspnea, syncope, headache, dizziness, GI bleed, back pain, seizure, CVA, palpatations, mental health)? @ -Sepsis, UTI, pneumonia EKG interpreted by me (3pts min.). @ -As above X-rays interpreted by me (1pt min.). @ -Chest x-ray was obtained and was interpreted by myself showing no acute process. CT interpreted by me (1pt min.). @ -None done U/S interpreted by me (1pt. min.). @ -None done What testing was considered but not performed or refused? (CT, X-rays, U/S, labs)? Why? @ -None What meds were considered but not given or refused? Why? @ -None Did you discuss the management of the patient with other professionals (professionals i.e. BETH Ansari, RRT, lab, RT, psych nurse, social services specialist, tool tender, teacher, strike warfare/missile systems officer, briefcase sewer)? Give summary @ -Admitting physician was contacted regarding admission Was smoking cessation discussed for >3mins.? @ -No Was critical care preformed (if so, how long)? @ -No Were there social determinants of health that impacted care today? How? (Homeles sness, low income, unemployed, alcoholism, drug addiction, transportation, low edu. Level, literacy, decrease access to med. care, nursing home, rehab)? @ -No Was there de-escalation of care discussed even if they declined (Discuss DNR or withdrawal of care, Hospice)? DNR status @ -No What co-morbidities impacted this encounter? (DM, HTN, Smoking, COPD, CAD, Cancer, CVA, ARF, Chemo, Hep., AIDS, mental health diagnosis, sleep apnea, morbid obesity)? @ -Hypertension, right-sided urostomy Was patient admitted / discharged? Hospital course, mention meds given and route, prescriptions, significant lab abnormalities, going to OR and other pertinent info. @ -The patient was seen and evaluated in the emergency department. Physical exam, the patient was resting in bed without any acute distress. Vital signs however on admission showed an elevated temperature of 103F but otherwise vital signs were within normal limits. Due to the patient's findings including sepsis concerns, sepsis protocol was obtained. The patient however did not receive 30 mL per KG of fluids as she was fluid overloaded with 2+ pitting edema in the bilateral lower extremities. The patient was however given 1 L of normal saline fluid. Workup did show a UTI without any signs of elevated white blood cell count therefore was likely that the patient had weakness is as a secondary symptom of her UTI and did not have acute sepsis at this time. The patient received Rocephin and to continue to remain stable. Due to the patient's weakness and inability to ambulate on her own around the emergency department in the setting of UTI, the patient will be admitted for further workup and evaluat ion. The patient was agreeable to this and all of her questions were answered appropriately. The patient was admitted in stable condition. Undiagnosed new problem with uncertain prognosis? @ -No Drug Therapy requiring intensive monitoring for toxicity (Heparin, Nitro, Insulin, Cardizem)? @ -No Were any procedures done? @ -No Diagnosis/symptom? @ -Weakness, UTI Acute, or Chronic, or Acute on Chronic? @ -Acute Uncomplicated (without systemic symptoms) or Complicated (systemic symptoms)? @ -Complicated Side effects of treatment? @ -No Exacerbation, Progression, or Severe Exacerbation? @ -No Poses a threat to life or bodily function? How? (Chest pain, [place], [place], pneumonia, PE, COPD, DKA, ARF, appy, cholecystitis, CVA, Diverticulitis, Homicidal, Suicidal, threat to staff... and all critical care pts) @ -Yes, continued UTI and weakness can lead to increasing falls, per minute damage and possible . - Lab Data Result diagrams: 04/26/23 19:51 04/26/23 17:47 Lab Results 04/26/23 04/26/23 04/26/23 Range/Units 17:47 17:47 17:47 WBC (3.8-10.6) k/uL RBC (3.80-5.40) m/uL Hgb (11.4-16.0) gm/dL Hct (34.0-46.0) % MCV (80.0-100.0) fL MCH (25.0-35.0) pg MCHC (31.0-37.0) g/dL RDW (11.5-15.5) % Plt Count (150-450) k/uL MPV Neutrophils % % Lymphocytes % % Monocytes % % Eosinophils % % Basophils % % Neutrophils # (1.3-7.7) k/uL Lymphocytes # (1.0-4.8) k/uL Monocytes # (0-1.0) k/uL Eosinophils # (0-0.7) k/uL Basophils # (0-0.2) k/uL Hypochromasia PT (9.0-12.0) sec INR (<1.2) APTT (22.0-30.0) sec Sodium 136 L (137-145) mmol/L Potassium 3.9 (3.5-5.1) mmol/L Chloride 104 (98-107) mmol/L Carbon Dioxide 24 (22-30) mmol/L Anion Gap 8 mmol/L BUN 15 (7-17) mg/dL Creatinine 0.84 (0.52-1.04) mg/dL Est GFR (CKD-EPI)AfAm 77 (>60 ml/min/1.73 sqM) Est GFR (CKD-EPI)NonAf 67 (>60 ml/min/1.73 sqM) Glucose 97 (74-99) mg/dL Plasma Lactic Acid Aidan 1.0 (0.7-2.0) mmol/L Calcium 8.7 (8.4-10.2) mg/dL Total Bilirubin 0.8 (0.2-1.3) mg/dL AST 46 H (14-36) U/L ALT 25 (4-34) U/L Alkaline Phosphatase 144 H (38-126) U/L Total Protein 6.3 (6.3-8.2) g/dL Albumin 3.4 L (3.5-5.0) g/dL Urine Color Yellow Urine Appearance Turbid H (Clear) Urine pH 8.5 H (5.0-8.0) Ur Specific [place] 1.013 (1.001-1.035) Urine Protein 1+ H (Negative) Urine Glucose (UA) Negative (Negative) Urine Ketones Negative (Negative) Urine Blood Negative (Negative) Urine Nitrite Positive H (Negative) Urine Bilirubin Negative (Negative) Urine Urobilinogen 2.0 (<2.0) mg/dL Ur Leukocyte Esterase Large H (Negative) Urine RBC 10 H (0-5) /hpf Urine WBC 27 H (0-5) /hpf Ur Squamous Epith Cells <1 (0-4) /hpf Urine Bacteria Moderate H (None) /hpf Urine Mucus Occasional H (None) /hpf Influenza Type A (PCR) (Not Detectd) Influenza Type B (PCR) (Not Detectd) RSV (PCR) (Not Detectd) SARS-CoV-2 (PCR) (Not Detectd) 04/26/23 04/26/23 04/26/23 Range/Units 17:47 19:51 19:51 WBC 4.8 (3.8-10.6) k/uL RBC 3.40 L (3.80-5.40) m/uL Hgb 8.7 L (11.4-16.0) gm/dL Hct 26.8 L (34.0-46.0) % MCV 78.8 L (80.0-100.0) fL MCH 25.5 (25.0-35.0) pg MCHC 32.4 (31.0-37.0) g/dL RDW 14.8 (11.5-15.5) % Plt Count 173 (150-450) k/uL MPV 9.4 Neutrophils % 80 % Lymphocytes % 10 % Monocytes % 7 % Eosinophils % 1 % Basophils % 0 % Neutrophils # 3.8 (1.3-7.7) k/uL Lymphocytes # 0.5 L (1.0-4.8) k/uL Monocytes # 0.3 (0-1.0) k/uL Eosinophils # 0.0 (0-0.7) k/uL Basophils # 0.0 (0-0.2) k/uL Hypochromasia Slight PT 10.7 (9.0-12.0) sec INR 1.0 (<1.2) APTT 23.5 (22.0-30.0) sec Sodium (137-145) mmol/L Potassium (3.5-5.1) mmol/L Chloride (98-107) mmol/L Carbon Dioxide (22-30) mmol/L Anion Gap mmol/L BUN (7-17) mg/dL Creatinine (0.52-1.04) mg/dL Est GFR (CKD-EPI)AfAm (>60 ml/min/1.73 sqM) Est GFR (CKD-EPI)NonAf (>60 ml/min/1.73 sqM) Glucose (74-99) mg/dL Plasma Lactic Acid Aidan (0.7-2.0) mmol/L Calcium (8.4-10.2) mg/dL Total Bilirubin (0.2-1.3) mg/dL AST (14-36) U/L ALT (4-34) U/L Alkaline Phosphatase (38-126) U/L Total Protein (6.3-8.2) g/dL Albumin (3.5-5.0) g/dL Urine Color Urine Appearance (Clear) Urine pH (5.0-8.0) Ur Specific [place] (1.001-1.035) Urine Protein (Negative) Urine Glucose (UA) (Negative) Urine Ketones (Negative) Urine Blood (Negative) Urine Nitrite (Negative) Urine Bilirubin (Negative) Urine Urobilinogen (<2.0) mg/dL Ur Leukocyte Esterase (Negative) Urine RBC (0-5) /hpf Urine WBC (0-5) /hpf Ur Squamous Epith Cells (0-4) /hpf Urine Bacteria (None) /hpf Urine Mucus (None) /hpf Influenza Type A (PCR) Not Detected (Not Detectd) Influenza Type B (PCR) Not Detected (Not Detectd) RSV (PCR) Not Detected (Not Detectd) SARS-CoV-2 (PCR) Not Detected (Not Detectd) Disposition Clinical Impression: Weakness, UTI (urinary tract infection) Disposition: ADMITTED IP TO THIS HOSP Condition: Stable Is patient prescribed a controlled substance at d/c from ED?: No Referrals: Nita Rice MD [Primary Care Provider] - 1-2 days Time of Disposition: 20:30 Decision to Admit Reason: Admit from EC Decision Date: 04/26/23 Decision Time: 20:30
[2023-04-26 20:29] LABS: Partial Thromboplastin Time 23.5 sec (22.0-30.0); Prothrombin Time 10.7 sec (9.0-12.0)
[2023-04-26 20:49] LABS: Basophils % (A) 0 %; Eosinophils % (A) 1 %; HCT 26.8 % (34.0-46.0); HGB 8.7 gm/dL (11.4-16.0); Hypochromasia Slight; Lymphocytes # (A) 0.5 k/uL (1.0-4.8); Lymphocytes % (A) 10 %; MCH 25.5 pg (25.0-35.0); MCHC 32.4 g/dL (31.0-37.0); MCV 78.8 fL (80.0-100.0); Mean Platelet Volume 9.4; Monocytes # (A) 0.3 k/uL (0-1.0); Monocytes % (A) 7 %; Neutrophils # (A) 3.8 k/uL (1.3-7.7); Neutrophils % (A) 80 %; Platelet Count 173 k/uL (150-450); RDW 14.8 % (11.5-15.5); WBC 4.8 k/uL (3.8-10.6)
[2023-04-26] MEDS ORDERED: NALOXONE 0.4 MG/ML 1 ML VIAL IV PRN (21:14)
[2023-04-27] MEDS ORDERED: ONDANSETRON 4 MG TAB PO PRN (06:31)
[2023-04-27] MEDS ORDERED: BACLOFEN 10 MG TAB PO PRN ×2 (06:31→06:34)
[2023-04-27] MEDS ORDERED: ACETAMINOPHEN TAB 325 MG TAB PO PRN (06:32)
[2023-04-27 07:15] LABS: Basophils % (A) 0 %; Eosinophils % (A) 1 %; HCT 30.4 % (34.0-46.0); HGB 9.8 gm/dL (11.4-16.0); Hypochromasia Slight; Lymphocytes # (A) 0.4 k/uL (1.0-4.8); Lymphocytes % (A) 8 %; MCH 26.3 pg (25.0-35.0); MCHC 32.3 g/dL (31.0-37.0); MCV 81.3 fL (80.0-100.0); Mean Platelet Volume 8.4; Monocytes # (A) 0.2 k/uL (0-1.0); Monocytes % (A) 5 %; Neutrophils # (A) 4.1 k/uL (1.3-7.7); Neutrophils % (A) 85 %; Platelet Count 181 k/uL (150-450); RBC 3.74 m/uL (3.80-5.40); WBC 4.8 k/uL (3.8-10.6)
[2023-04-27] MEDS: FUROSEMIDE 20 MG TAB PO SCH ×2 (07:23→16:55)
[2023-04-27] MEDS: METOPROLOL TARTRATE 25 MG TAB PO SCH ×2 (07:23→20:11)
[2023-04-27] MEDS: PANTOPRAZOLE 40 MG TABLET PO SCH (07:23)
[2023-04-27] MEDS: ASPIRIN 81 MG PO SCH (07:24)
[2023-04-27] MEDS: PROPAFENONE 150 MG TAB PO SCH ×2 (11:02→20:11)
[2023-04-27] MEDS: ALBUTEROL NEBULIZED 2.5 MG/3 ML INHALATION PRN ×2 (11:41→19:03)
--- NOTE | 2023-04-28 00:52 | P.HPIM ---
History of Present Illness H&P Date: 04/27/23 Chief Complaint: Weakness Patient is a 77-year-old female with a known history of atrial fibrillation not on anticoagulation, history of bladder cancer with urostomy and, multiple urinary tract infections, hypertension nausea osteoarthritis and GERD and history of permanent pacemaker placement, cardioversion and prior history of smoking presents to ER with complaints of generalized weakness. Patient has been having symptoms for the past 3 days. Patient states that she felt so weak that she could not get out of the chair and called EMS. Patient has been having chills at home. Patient is also febrile with Tmax 103 F on admission. Denies any complaints of abdominal pain. No nausea vomiting. No chest pain or shortness of breath. Chest x-ray showed no acute cardiopulmonary process. EKG showed sinus rhythm. Laboratory test showed WBC 4.8 hemoglobin 8.7 and platelets 173 Sodium 136 potassium 3.9 chloride 104 bicarb is 24 BUN 15 and creatinine 0.84, alk phos 144 and bilirubin level is 0.8 Urinalysis showed turbid positive nitrite large leukocyte esterase with elevated RBCs and WBCs. Review of Systems Constitutional: Patient denies any fever or chills . Generalized weakness. Abdomen: Patient denied any nausea or vomiting or abd. pain Cardiovascular: Patient denies any chest pain or short of breath no palpitations. Respiratory: patient denied any cough . no sputum production. No shortness of breath Neurologic: Patient denied any numbness or tingling headache. Musculoskeletal: Patient denies any complaints of joint swelling or deformity. Skin: Negative Psychiatric: Negative Endocrine: No heat or cold intolerance. No recent weight gain. Genitourinary: No dysuria or hematuria. All other 14 point ROS negative except the above Past Medical History Past Medical History: Atrial Fibrillation, Cancer, GERD/Reflux, Hypertension, Osteoarthritis (OA) Additional Past Medical History / Comment(s): bladder cancer with urostomy, Small Bowel Obstruction, vertigo History of Any Multi-Drug Resistant Organisms: None Reported Past Surgical History: Ablation, Bladder Surgery, Heart Catheterization, Hernia Repair, Hysterectomy, Orthopedic Surgery, Pacemaker, Tonsillectomy Additional Past Surgical History / Comment(s): LEFT HIP SURGERY x 5, GRAFTS AND MARNIE 2016, ablasion CARDIOVERSION, urostomy 10/2010, cataracts 2017 Past Anesthesia/Blood Transfusion Reactions: Previous Problems w/ Anesthesia Additional Past Anesthesia/Blood Transfusion Reaction / Comment(s): asthma attack Type of Cardiac Device: Permanent Pacemaker Device Placement Date:: 2012 Past Psychological History: Anxiety Smoking Status: Former smoker Past Alcohol Use History: Occasional Past Drug Use History: None Reported - Past Family History Mother Family Medical History: Asthma, GERD/Reflux Additional Family Medical History / Comment(s): diverticulitus, glaucoma Father Family Medical History: Hyperlipidemia Additional Family Medical History / Comment(s): stroke, brain tumour Medications and Allergies Home Medications Medication Instructions Recorded Confirmed Type Omeprazole [PriLOSEC] 20 mg PO Q48H 02/05/15 04/27/23 History Potassium Chloride [K-Tab ER] 10 meq PO DAILY 09/01/16 04/26/23 History Metoprolol Tartrate [Lopressor] 25 mg PO BID #60 tab 12/21/16 04/26/23 Rx Furosemide [Lasix] 20 mg PO BID 06/02/20 04/26/23 History Propafenone HCl 150 mg PO BID 06/02/20 04/26/23 History Ondansetron [Zofran] 4 mg PO BID PRN 03/21/22 04/26/23 History Aspirin EC [Ecotrin Low Dose] 81 mg PO DAILY 04/26/23 04/26/23 History Baclofen [Lioresal] 10 mg PO HS PRN 04/26/23 04/26/23 History Zolpidem [Ambien] 5 mg PO HS PRN 04/26/23 04/26/23 History Albuterol Inhaler [Ventolin Hfa 2 puff INHALATION TID PRN 04/27/23 04/27/23 History Inhaler] Magnesium Citrate and Oxide 250 mg PO DAILY 04/27/23 04/27/23 History [Magnesium] Meclizine [Antivert] 25 mg PO TID PRN 04/27/23 04/27/23 History Ertapenem [INVanz] 1 gm IVPB Q24H #5 each 05/04/23 Rx Allergies Allergy/AdvReac Type Severity Reaction Status Date / Time ether Allergy Anaphylaxis Verified 04/26/23 22:17 formaldehyde Allergy Anaphylaxis Verified 04/26/23 22:17 tetanus and diphtheria Allergy Unknown Verified 04/26/23 22:17 toxoids [tetanus & diphtheria toxoids] codeine AdvReac Nausea Verified 04/26/23 22:17 Physical Exam Vitals: Vital Signs Temp Pulse Pulse Resp BP BP Pulse Ox 04/27/23 11:53 68 04/27/23 11:43 64 04/27/23 11:27 98.3 F 63 18 101/63 94 L 04/27/23 07:42 93 L 04/27/23 07:02 100.6 F H 75 16 146/74 95 04/27/23 02:00 97.8 F 63 114/66 96 04/26/23 23:30 97.8 F 65 118/65 95 04/26/23 21:57 99.1 F 70 16 122/58 95 04/26/23 20:00 99.1 F 04/26/23 17:29 103.0 F H 75 18 145/70 93 L Intake and Output 04/26/23 04/27/23 04/27/23 22:59 06:59 14:59 Output Total 300 Balance -300 Output: Urine 300 Other: Voiding Method Ileal Conduit (Right) Ileal Conduit (Right) Weight 77.111 kg 77.111 kg PHYSICAL EXAMINATION: Patient is lying in the bed comfortably, no acute distress, awake alert and oriented.. HEENT: Normocephalic. Neck is supple. Pupils reactive. Nostrils clear. Oral cavity is moist. Neck reveals no JVD, carotid bruits, or thyromegaly. CHEST EXAMINATION: Trachea is central. Symmetrical expansion. Lung adames clear to auscultation and percussion. CARDIAC: Normal S1, S2 with no gallops. No murmurs ABDOMEN: Soft. Bowel sounds present. Nontender. No organomegaly. No abdominal bruits. Extremities: reveal no edema. No clubbing or cyanosis Neurologically awake, alert, oriented x3 with well-coordinated movements. No focal deficits noted Skin: No rash or skin lesions. Psychiatric: Coperative. Nonsuicidal, Musculoskeletal: No joint swelling or deformity. Normal range of motion. Results CBC & Chem 7: 04/30/23 06:08 04/30/23 06:08 Labs: Abnormal Lab Results - Last 24 Hours (Table) 04/26/23 04/26/23 04/26/23 Range/Units 17:47 17:47 19:51 RBC 3.40 L (3.80-5.40) m/uL Hgb 8.7 L (11.4-16.0) gm/dL Hct 26.8 L (34.0-46.0) % MCV 78.8 L (80.0-100.0) fL Lymphocytes # 0.5 L (1.0-4.8) k/uL Sodium 136 L (137-145) mmol/L AST 46 H (14-36) U/L Alkaline Phosphatase 144 H (38-126) U/L Albumin 3.4 L (3.5-5.0) g/dL Urine Appearance Turbid H (Clear) Urine pH 8.5 H (5.0-8.0) Urine Protein 1+ H (Negative) Urine Nitrite Positive H (Negative) Ur Leukocyte Esterase Large H (Negative) Urine RBC 10 H (0-5) /hpf Urine WBC 27 H (0-5) /hpf Urine Bacteria Moderate H (None) /hpf Urine Mucus Occasional H (None) /hpf 04/27/23 Range/Units 06:36 RBC 3.74 L (3.80-5.40) m/uL Hgb 9.8 L (11.4-16.0) gm/dL Hct 30.4 L (34.0-46.0) % MCV (80.0-100.0) fL Lymphocytes # 0.4 L (1.0-4.8) k/uL Sodium (137-145) mmol/L AST (14-36) U/L Alkaline Phosphatase (38-126) U/L Albumin (3.5-5.0) g/dL Urine Appearance (Clear) Urine pH (5.0-8.0) Urine Protein (Negative) Urine Nitrite (Negative) Ur Leukocyte Esterase (Negative) Urine RBC (0-5) /hpf Urine WBC (0-5) /hpf Urine Bacteria (None) /hpf Urine Mucus (None) /hpf Thrombosis Risk Factor Assmnt - DVT/VTE Prophylaxis DVT/VTE Prophylaxis: Pharmacologic Prophylaxis ordered - Choose All That Apply Any of the Below Risk Factors Present?: No Each Risk Factor Represents 2 Points: Arthroscopic surgery Each Risk Factor Represents 3 Points: Positive Factor V Leiden Thrombosis Risk Factor Assessment Total Risk Factor Score: 5 Thrombosis Risk Factor Assessment Level: High Risk Assessment and Plan Assessment: Acute urinary tract infection Generalized weakness and fever. History of bladder cancer with urostomy tube placement Paroxysmal atrial fibrillation. Currently not on anticoagulation due to prior history of hematuria Osteoarthritis GERD History of pulm and pacemaker placement and cardioversion DVT prophylaxis with heparin subcu Plan: Patient will be continued on antibiotics involve ceftriaxone. Follow-up urine culture report. Encourage oral intake. Patient will be continued on home medications including metoprolol and propafenone. Continue to follow closely. Encourage ambulation PT OT. Time with Patient: Greater than 30
[2023-04-28] MEDS: FUROSEMIDE 20 MG TAB PO SCH ×2 (08:21→15:59)
[2023-04-28] MEDS: PANTOPRAZOLE 40 MG TABLET PO SCH (08:21)
[2023-04-28] MEDS: HEPARIN SODIUM,PORCINE/PF 5,000 UNIT/0.5 ML SYRINGE SQ SCH ×2 (08:21→15:59)
[2023-04-28] MEDS: ASPIRIN 81 MG PO SCH (08:21)
[2023-04-28] MEDS: METOPROLOL TARTRATE 25 MG TAB PO SCH ×2 (08:21→20:34)
[2023-04-28] MEDS: PROPAFENONE 150 MG TAB PO SCH ×2 (08:21→20:34)
[2023-04-28 11:10] LABS: Basophils # (A) 0.03 X 10*3/uL (0.00-0.10); Basophils % (A) 0.8 %; Eosinophils # (A) 0.08 X 10*3/uL (0.04-0.35); Eosinophils % (A) 2.2 %; HCT 29.1 % (37.2-46.3); HGB 8.7 d/dL (12.0-15.0); Lymphocytes # (A) 0.78 X 10*3/uL (0.90-5.00); Lymphocytes % (A) 21.7 %; MCH 24.6 pg (27.0-32.0); MCHC 29.9 d/dL (32.0-37.0); MCV 82.2 FL (80.0-97.0); Mean Platelet Volume 11.2 FL (9.5-12.2); Monocytes % (A) 13.9 %; NRBC Per 100 WBC 0 X 10*3/uL (0.00-0.01); Neutrophils # (A) 2.18 X 10*3/uL (1.80-7.70); Neutrophils % (A) 60.8 %; Platelet Count 177 X 10*3/uL (140-440); RBC 3.54 X 10*6/uL (4.10-5.20); RDW 15.3 % (11.5-14.5); WBC 3.59 X 10*3/uL (4.50-10.00)
[2023-04-28 11:38] LABS: BUN/Creat Ratio 12.56 Ratio (12.00-20.00); Blood Urea Nitrogen 11.3 mg/dL (9.0-27.0); Calcium 8.9 mg/dL (8.7-10.3); Carbon Dioxide 22.9 mmol/L (21.6-31.8); Chloride 107 mmol/L (96-109); Glucose 97 mg/dL (70-110); Potassium 3.9 mmol/L (3.5-5.5); Sodium 139 mmol/L (135-145)
--- NOTE | 2023-04-28 13:51 | CDI ---
Documentation Clarification Form Date: 04/28/2023 01:42:15 PM From: Vera Lujan RN CCDS Phone: [phone] Admit Date: 04/26/2023 09:14:00 PM Patient Name: Mckenna Foster Visit Number: [id number] Discharge Date: ATTENTION: The Clinical Documentation Specialists (CDI) and [facility] Coding Staff appreciate your assistance in clarifying documentation. Please respond to the clarification below the line at the bottom and electronically sign. The CDI & [facility] Coding staff will review the response and follow-up if needed. Please note: Queries are made part of the Legal Health Record. If you have any questions, please contact the author of this message via ITS. Dr. Sharri Fall UTI is documented 04/27, H&P. Additional clarification regarding this diagnosis is requested. History/Risk Factors: 77 year old female presents with generalized weakness for three days. Medical History: Bladder cancer with urostomy tube placement, Atrial Fib, OA, GERD and pacemaker. Clinical Indicators: Vital Signs: B.P 145/70; HR 75; Temp 103.0 F Oral ; RR 18; SpO2 93% ra WBC: 04/26 4.8 Urinalysis, 04/26: Turbid ph 7.5 protein 1+; nitrate positive ; large leukocyte esterase wbc 27 Urine Culture, 04/26: Gram negative Bacilli Treatment: 04/26 Tylenol po x 1; 04/26 0.9ns 1L bolus Antibiotics: 04/26 Rocephin ivpb x 1; Ceftriaxone IVPB Q24H Please clarify if there is an additional diagnosis associated with the UTI: [ ] UTI only [ ] UTI secondary to Urostomy tube [ ] Other, please specify [ ] Unable to determine 04/28 Medicine Note: Acute urinary tract infection, present on admission, secondary to urostomy tube. Dr Fall; Hien Feliciano NP. (Template Last Revised: December 2020) MTDD
[2023-04-28] MEDS: ALBUTEROL NEBULIZED 2.5 MG/3 ML INHALATION PRN (20:37)
[2023-04-29] MEDS: HEPARIN SODIUM,PORCINE/PF 5,000 UNIT/0.5 ML SYRINGE SQ SCH ×3 (01:07→15:23)
--- NOTE | 2023-04-29 06:22 | P.PN ---
Subjective Progress Note Date: 04/28/23 Patient is a 77-year-old female with a known history of atrial fibrillation not on anticoagulation, history of bladder cancer with urostomy and, multiple urinary tract infections, hypertension nausea osteoarthritis and GERD and history of permanent pacemaker placement, cardioversion and prior history of smoking presents to ER with complaints of generalized weakness. Patient has been having symptoms for the past 3 days. Patient states that she felt so weak that she could not get out of the chair and called EMS. Patient has been having chills at home. Patient is also febrile with Tmax 103 F on admission. Denies any complaints of abdominal pain. No nausea vomiting. No chest pain or shortness of breath. Chest x-ray showed no acute cardiopulmonary process. EKG showed sinus rhythm. Laboratory test showed WBC 4.8 hemoglobin 8.7 and platelets 173 Sodium 136 potassium 3.9 chloride 104 bicarb is 24 BUN 15 and creatinine 0.84, alk phos 144 and bilirubin level is 0.8 Urinalysis showed turbid positive nitrite large leukocyte esterase with elevated RBCs and WBCs. 04/28/2023 Patient is seen and evaluated in follow-up today currently sitting up in the chair with no acute overnight issues noted. Patient has chronic urostomy in the urine is clear although there continues to be some sediment and what appears to be sloughing of skin in the urostomy bag. Patient denies any flank pain or abd ominal pain. Patient is asking when she can go home. Currently maintained on IV antibiotics and awaiting urine culture results. Preliminary showing gram- negative bacilli. Patient is afebrile with no reports of shortness of breath or chest pain. Review of systems: Constitutional: No reports of fatigue, fever, or chills Cardiovascular: No reports of chest pain or palpitations Respiratory: No reports of shortness of breath or cough GI: No reports of nausea, vomiting, or diarrhea : No reports of dysuria or retention Neurovascular: No reports of weakness or numbness All medications have been reviewed Physical exam: Gen: This is a pleasant 77-year-old female who is awake, alert and oriented 3, well-developed, well-nourished HEENT: Head is atraumatic, normocephalic. Pupils equal, round. Sclerae is anicteric. NECK: Supple. No JVD. No lymphadenopathy. No thyromegaly. LUNGS: Clear to auscultation. No wheezes or rhonchi. No intercostal retractions. HEART: Regular rate and rhythm. No murmur. ABDOMEN: Soft. Bowel sounds are present. No masses. No tenderness. EXTREMITIES: No pedal edema. No calf tenderness. NEUROLOGICAL: Patient is awake, alert and oriented x3. Cranial nerves 2 through 12 are grossly intact. Assessment: Acute urinary tract infection, present on admission, secondary to urostomy tube Generalized weakness and fever. History of bladder cancer with urostomy tube placement Paroxysmal atrial fibrillation. Currently not on anticoagulation due to prior history of hematuria Osteoarthritis GERD History of permanent pacemaker placement and cardioversion DVT prophylaxis with heparin subcu GI prophylaxis Full code Plan: Recommend patient to continue with current medications including IV ceftriaxone while awaiting urine culture. Preliminary showing gram-negative bacilli. Blood cultures thus far remain negative Encourage oral intake and increased activity as tolerated Labs reviewed and within normal limits Will discuss further discharge planning once cultures have finalized Possible discharge in the next 24 hours. The impression and plan of care has been dictated by Hien Feliciano, Nurse Practitioner as directed. Dr. Juan David MD I have performed a history and examination and MDM of this patient, discussed the same with the dictator, and agree with the dictator's assessment and plan as written ,documented as a scribe. Based on total visit time, I have performed more than 50% of the visit. Objective - Vital Signs Vital signs: Vital Signs Temp 98.6 F 04/28/23 13:12 Pulse 66 04/28/23 13:12 Resp 18 04/28/23 13:12 BP 115/65 04/28/23 13:12 Pulse Ox 98 04/28/23 13:12 FiO2 Intake & Output 04/27/23 04/28/23 04/28/23 18:59 06:59 18:59 Intake Total 50 222 Output Total 1000 725 500 Balance -950 -503 -500 Intake: Intake, IV Titration 50 Amount cefTRIAXone 1 gm In 50 Sodium Chloride 0.9% 50 ml @ 100 mls/hr IVPB Q24HR [facility] Rx#:[id number] Oral 222 Output: Urine 1000 725 500 Other: Voiding Method Ileal Conduit (Right) Ileal Conduit (Right) Ileal Conduit (Right) - Labs CBC & Chem 7: 04/28/23 06:15 04/28/23 06:15 Labs: Abnormal Lab Results - Last 24 Hours (Table) 04/28/23 Range/Units 06:15 WBC 3.59 L (4.50-10.00) X 10*3/uL RBC 3.54 L (4.10-5.20) X 10*6/uL Hgb 8.7 L (12.0-15.0) d/dL Hct 29.1 L (37.2-46.3) % MCH 24.6 L (27.0-32.0) pg MCHC 29.9 L (32.0-37.0) d/dL RDW 15.3 H (11.5-14.5) % Lymphocytes # 0.78 L (0.90-5.00) X 10*3/uL Microbiology - Last 24 Hours (Table) 04/26/23 18:00 Blood Culture - Preliminary Blood 04/26/23 17:47 Blood Culture - Preliminary Blood 04/26/23 17:47 Urine Culture - Preliminary Urine,Voided Gram Neg Bacilli
[2023-04-29] MEDS: ASPIRIN 81 MG PO SCH (07:50)
[2023-04-29] MEDS: PANTOPRAZOLE 40 MG TABLET PO SCH (07:50)
[2023-04-29] MEDS: PROPAFENONE 150 MG TAB PO SCH ×3 (07:50→21:26)
[2023-04-29] MEDS: METOPROLOL TARTRATE 25 MG TAB PO SCH ×2 (07:50→21:23)
[2023-04-29] MEDS: FUROSEMIDE 20 MG TAB PO SCH ×2 (07:50→15:23)
[2023-04-29] MEDS: ERTAPENEM 1 GM in SODIUM CHLORIDE 0.9% 50 ML IVPB SCH (14:45)
[2023-04-29 16:12] LABS: Appearance,Urine Clear (Clear); Bacteria,Urine Many /hpf; Bilirubin,Urine Negative (Negative); Blood,Urine Negative (Negative); Color,Urine Light Yellow; Glucose,Urine (UA) Negative (Negative); Ketones,Urine Negative (Negative); Leukocyte Esterase,Urine Large (Negative); Mucus,Urine Moderate /hpf; Nitrite,Urine Positive (Negative); PH, Urine 6.5 (5.0-8.0); Protein,Urine Negative (Negative); RBC,Urine 2 /hpf (0-5); Squamous Epithelial Cell,Urine 1 /hpf (0-4); Urobilinogen,Urine <2.0 mg/dL (<2.0); WBC,Urine 26 /hpf (0-5)
[2023-04-29] MEDS ORDERED: BISMUTH SUBSALICYLATE 4,192 MG/240 ML BOTTLE PO PRN (17:43)
[2023-04-29] MEDS: CHOLESTYRAMINE (WITH SUGAR) 4 GM PACKET PO SCH (17:52)
[2023-04-29] MEDS: ALBUTEROL NEBULIZED 2.5 MG/3 ML INHALATION PRN (20:52)
[2023-04-29] MEDS: ZOLPIDEM 5 MG TAB PO PRN (21:31)
--- NOTE | 2023-04-29 22:41 | P.CONS ---
History of Present Illness - Reason for Consult Consult date: 04/29/23 - History of Present Illness Patient is a 77-year-old female with a past medical history significant for hypertension osteoarthritis reflux atrial fibrillation patient did have a bladder cancer status post bladder resection and urostomy presenting to the hospital for evaluation of generalized weakness and this patient's symptom has been going on for 3 days before presentation to the hospital patient was feeling so weak that she could not get out of the chair and called EMS patient also complaining of some chills patient on presentation to the hospital have a fever of 103 degrees for right and did subsequently fever of 100.6 did inform her and however the patient fever has resolved patient was not tachycar dic hypotensive or hypoxic patient did have a normal white count kidney function was normal liver enzymes are normal she did have a positive UA influenza RSV and COVID testing was negative blood cultures currently pending urine has been finalized with ESBL E. coli that has prompted this infectious disease consultation patient is currently on Rocephin 1 g daily patient did have a chest x-ray that was negative for acute cardiopulmonary process Past Medical History Past Medical History: Atrial Fibrillation, Cancer, GERD/Reflux, Hypertension, Osteoarthritis (OA) Additional Past Medical History / Comment(s): bladder cancer with urostomy, Small Bowel Obstruction, vertigo History of Any Multi-Drug Resistant Organisms: None Reported Past Surgical History: Ablation, Bladder Surgery, Heart Catheterization, Hernia Repair, Hysterectomy, Orthopedic Surgery, Pacemaker, Tonsillectomy Additional Past Surgical History / Comment(s): LEFT HIP SURGERY x 5, GRAFTS AND MARNIE 2015, ablasion CARDIOVERSION, urostomy 10/2010, cataracts 2017 Past Anesthesia/Blood Transfusion Reactions: Previous Problems w/ Anesthesia Additional Past Anesthesia/Blood Transfusion Reaction / Comm: asthma attack Type of Cardiac Device: Permanent Pacemaker Device Placement Date:: 2012 Past Psychological History: Anxiety Smoking Status: Former smoker Past Alcohol Use History: Occasional Past Drug Use History: None Reported - Past Family History Mother Family Medical History: Asthma, GERD/Reflux Additional Family Medical History / Comment(s): diverticulitus, glaucoma Father Family Medical History: Hyperlipidemia Additional Family Medical History / Comment(s): stroke, brain tumour Medications and Allergies Home Medications Medication Instructions Recorded Confirmed Type Omeprazole [PriLOSEC] 20 mg PO Q48H 02/05/15 04/27/23 History Potassium Chloride [K-Tab ER] 10 meq PO DAILY 11/21/16 07/16/23 History Metoprolol Tartrate [Lopressor] 25 mg PO BID #60 tab 12/21/16 04/26/23 Rx Furosemide [Lasix] 20 mg PO BID 06/02/20 04/26/23 History Propafenone HCl 150 mg PO BID 06/02/20 04/26/23 History Ondansetron [Zofran] 4 mg PO BID PRN 03/21/22 04/26/23 History Ibuprofen [Motrin] 800 mg PO DAILY PRN 12/30/22 04/26/23 History Aspirin EC [Ecotrin Low Dose] 81 mg PO DAILY 04/26/23 04/26/23 History Baclofen [Lioresal] 10 mg PO HS PRN 04/26/23 04/26/23 History Zolpidem [Ambien] 5 mg PO HS PRN 04/26/23 04/26/23 History Albuterol Inhaler [Ventolin Hfa 2 puff INHALATION TID PRN 04/27/23 04/27/23 History Inhaler] Magnesium Citrate and Oxide 250 mg PO DAILY 04/27/23 04/27/23 History [Magnesium] Meclizine [Antivert] 25 mg PO TID PRN 04/27/23 04/27/23 History Allergies Allergy/AdvReac Type Severity Reaction Status Date / Time ether Allergy Anaphylaxis Verified 04/26/23 22:17 formaldehyde Allergy Anaphylaxis Verified 04/26/23 22:17 tetanus and diphtheria Allergy Unknown Verified 04/26/23 22:17 toxoids [tetanus & diphtheria toxoids] codeine AdvReac Nausea Verified 04/26/23 22:17 Physical Exam Vitals: Vital Signs Temp Pulse Pulse Resp BP Pulse Ox 04/29/23 12:26 98.0 F 67 16 120/72 95 04/29/23 08:13 96 04/29/23 07:44 98.2 F 60 16 109/62 95 04/29/23 01:00 98.1 F 62 17 121/75 96 04/28/23 20:47 76 04/28/23 20:37 72 04/28/23 20:00 17 04/28/23 19:03 98.6 F 66 17 122/69 99 Intake and Output 04/28/23 04/29/23 04/29/23 22:59 06:59 14:59 Output Total 1150 600 Balance -1150 -600 Output: Urine 1150 600 Other: Voiding Method Ileal Conduit (Right) Ileal Conduit (Right) Results CBC & Chem 7: 04/30/23 06:08 04/30/23 06:08 Labs: Microbiology - Last 24 Hours (Table) 04/26/23 18:00 Blood Culture - Preliminary Blood 04/26/23 17:47 Blood Culture - Preliminary Blood 04/26/23 17:47 Urine Culture - Final Urine,Voided Escherichia coli Assessment and Plan Plan: 1patient presented to hospital with fever and weakness did have significantly positive UA concerning for a complicated UTI as the patient denies any other obvious focus of infection however the patient fever has resolved without getting treatment for pathogen that she is growing in the urine with a question of possible contaminant versus true pathogen 2-discontinue Rocephin 3-we will repeat her UA to see if it has normalized with the current treatment of persistently positive 4-start the patient on Invanz 1 g daily while awaiting further work-up to be completed 5-check ultrasound of the kidneys to make sure no evidence of any hydronephrosis We will follow on clinical condition and cultures to further adjust medication if needed Thank you for this consultation we will follow the patient along with you Dictation was produced using [employer] dictation software. please excuse any grammatical, word or spelling errors. Time with Patient: Greater than 30
[2023-04-30] MEDS: HEPARIN SODIUM,PORCINE/PF 5,000 UNIT/0.5 ML SYRINGE SQ SCH ×3 (00:24→16:34)
--- NOTE | 2023-04-30 05:46 | P.PN ---
Subjective Progress Note Date: 04/29/23 Patient is a 77-year-old female with a known history of atrial fibrillation not on anticoagulation, history of bladder cancer with urostomy and, multiple urinary tract infections, hypertension nausea osteoarthritis and GERD and history of permanent pacemaker placement, cardioversion and prior history of smoking presents to ER with complaints of generalized weakness. Patient has been having symptoms for the past 3 days. Patient states that she felt so weak that she could not get out of the chair and called EMS. Patient has been having chills at home. Patient is also febrile with Tmax 103 F on admission. Denies any complaints of abdominal pain. No nausea vomiting. No chest pain or shortness of breath. Chest x-ray showed no acute cardiopulmonary process. EKG showed sinus rhythm. Laboratory test showed WBC 4.8 hemoglobin 8.7 and platelets 173 Sodium 136 potassium 3.9 chloride 104 bicarb is 24 BUN 15 and creatinine 0.84, alk phos 144 and bilirubin level is 0.8 Urinalysis showed turbid positive nitrite large leukocyte esterase with elevated RBCs and WBCs. 04/28/2023 Patient is seen and evaluated in follow-up today currently sitting up in the chair with no acute overnight issues noted. Patient has chronic urostomy in the urine is clear although there continues to be some sediment and what appears to be sloughing of skin in the urostomy bag. Patient denies any flank pain or abd ominal pain. Patient is asking when she can go home. Currently maintained on IV antibiotics and awaiting urine culture results. Preliminary showing gram- negative bacilli. Patient is afebrile with no reports of shortness of breath or chest pain. 04/29/2023 Morning reports to feeling much better. Patient maintained on ceftriaxone and preliminary culture showing gram-negative bacilli awaiting for finalized cultures. Patient remains afebrile with no reports of chest pain or shortness of breath. Patient is tolerating diet and denies any nausea or vomiting. Patient reports urostomy is looking more clear today and not noticing any gritty sediment. Review of systems: Constitutional: No reports of fatigue, fever, or chills Cardiovascular: No reports of chest pain or palpitations Respiratory: No reports of shortness of breath or cough GI: No reports of nausea, vomiting, or diarrhea : No reports of dysuria or retention Neurovascular: No reports of weakness or numbness All medications have been reviewed Physical exam: Gen: This is a pleasant 77-year-old female who is awake, alert and oriented 3, well-developed, well-nourished HEENT: Head is atraumatic, normocephalic. Pupils equal, round. Sclerae is anicteric. NECK: Supple. No JVD. No lymphadenopathy. No thyromegaly. LUNGS: Clear to auscultation. No wheezes or rhonchi. No intercostal retra ctions. HEART: Regular rate and rhythm. No murmur. ABDOMEN: Soft. Bowel sounds are present. No masses. No tenderness. EXTREMITIES: No pedal edema. No calf tenderness. NEUROLOGICAL: Patient is awake, alert and oriented x3. Cranial nerves 2 through 12 are grossly intact. Assessment: Acute urinary tract infection, present on admission, secondary to urostomy tube Generalized weakness and fever, secondary to above. History of bladder cancer with urostomy tube placement Paroxysmal atrial fibrillation. Currently not on anticoagulation due to prior history of hematuria Osteoarthritis GERD History of permanent pacemaker placement and cardioversion DVT prophylaxis with heparin subcu GI prophylaxis Full code Plan: Recommend patient to continue with current medications including IV antibiotics although urine culture showing ESBL and will consult infectious disease and appreciate input recommendations. Will repeat urinalysis Recommend repeat labs in a.m. Patient having some loose stools after starting ertapenem and will monitor closely. Recommend Cdiff testing and if persistent will add Imodium Encourage oral intake and increased activity as tolerated Will discuss further with infectious disease if patient will be required. IV antibiotics on discharge. Case management is following looking into coverage and Homecare The impression and plan of care has been dictated by Hien Feliciano, Nurse Practitioner as directed. Dr. Juan David MD I have performed a history and examination and MDM of this patient, discussed the same with the dictator, and agree with the dictator's assessment and plan as written ,documented as a scribe. Based on total visit time, I have performed more than 50% of the visit. Objective - Vital Signs Vital signs: Vital Signs Temp 98.2 F 04/29/23 07:44 Pulse 60 04/29/23 07:44 Resp 16 04/29/23 07:44 BP 109/62 04/29/23 07:44 Pulse Ox 96 04/29/23 08:13 FiO2 Intake & Output 04/28/23 04/29/23 04/29/23 18:59 06:59 18:59 Output Total 500 900 600 Balance -500 -900 -600 Output: Urine 500 900 600 Other: Voiding Method Ileal Conduit (Right) Ileal Conduit (Right) - Labs CBC & Chem 7: 04/28/23 06:15 04/28/23 06:15 Labs: Abnormal Lab Results - Last 24 Hours (Table) 04/28/23 Range/Units 06:15 WBC 3.59 L (4.50-10.00) X 10*3/uL RBC 3.54 L (4.10-5.20) X 10*6/uL Hgb 8.7 L (12.0-15.0) d/dL Hct 29.1 L (37.2-46.3) % MCH 24.6 L (27.0-32.0) pg MCHC 29.9 L (32.0-37.0) d/dL RDW 15.3 H (11.5-14.5) % Lymphocytes # 0.78 L (0.90-5.00) X 10*3/uL Microbiology - Last 24 Hours (Table) 04/26/23 18:00 Blood Culture - Preliminary Blood 04/26/23 17:47 Blood Culture - Preliminary Blood 04/26/23 17:47 Urine Culture - Preliminary Urine,Voided Gram Neg Bacilli
[2023-04-30] MEDS: ERTAPENEM 1 GM in SODIUM CHLORIDE 0.9% 50 ML IVPB SCH (09:02)
[2023-04-30 09:03] LABS: Basophils # (A) 0.02 X 10*3/uL (0.00-0.10); Basophils % (A) 0.5 %; Eosinophils # (A) 0.34 X 10*3/uL (0.04-0.35); Eosinophils % (A) 8.6 %; HCT 29.9 % (37.2-46.3); HGB 9.1 d/dL (12.0-15.0); Lymphocytes # (A) 0.88 X 10*3/uL (0.90-5.00); Lymphocytes % (A) 22.3 %; MCH 24.7 pg (27.0-32.0); MCHC 30.4 d/dL (32.0-37.0); MCV 81.3 FL (80.0-97.0); Mean Platelet Volume 11.5 FL (9.5-12.2); Monocytes # (A) 0.46 X 10*3/uL (0.20-1.00); Monocytes % (A) 11.7 %; NRBC Per 100 WBC 0 X 10*3/uL (0.00-0.01); Neutrophils # (A) 2.21 X 10*3/uL (1.80-7.70); Neutrophils % (A) 56.1 %; Platelet Count 205 X 10*3/uL (140-440); RBC 3.68 X 10*6/uL (4.10-5.20); RDW 15.2 % (11.5-14.5); WBC 3.94 X 10*3/uL (4.50-10.00)
[2023-04-30 09:04] LABS: Calcium 9.1 mg/dL (8.7-10.3); Carbon Dioxide 23.9 mmol/L (21.6-31.8); Chloride 105 mmol/L (96-109); Glucose 95 mg/dL (70-110); Potassium 4.3 mmol/L (3.5-5.5); Sodium 139 mmol/L (135-145)
[2023-04-30] MEDS: ASPIRIN 81 MG PO SCH (09:04)
[2023-04-30] MEDS: PANTOPRAZOLE 40 MG TABLET PO SCH (09:04)
[2023-04-30] MEDS: PROPAFENONE 150 MG TAB PO SCH ×2 (09:04→21:56)
[2023-04-30] MEDS: METOPROLOL TARTRATE 25 MG TAB PO SCH ×2 (09:04→21:56)
[2023-04-30] MEDS: FUROSEMIDE 20 MG TAB PO SCH ×2 (09:04→16:34)
--- NOTE | 2023-04-30 09:15 | US ---
EXAMINATION TYPE: US kidneys/renal and bladder DATE OF EXAM: 04/30/2023 COMPARISON: CT: 12/30/22 CLINICAL INDICATION: Female, 77 years old with history of uti and bacteremia; uti. Hx of bladder canc er. Atrophic rt kidney. Urostomy EXAM MEASUREMENTS: Right Kidney: 6.3 x 3.7 x 3.2 cm Left Kidney: 11.3 x 4.4 x 5.1 cm Right Kidney: Atrophic and difficult to visualized Left Kidney: No hydronephrosis or masses seen Bladder: No abnormality visualized in the area of the urostomy There is no evidence for hydronephrosis at this point in time. No nephrolithiasis is seen. No jose alberto s are identified. The urinary bladder is anechoic. IMPRESSION: Atrophic right kidney. Urostomy is noted.
[2023-04-30] MEDS: CHOLESTYRAMINE (WITH SUGAR) 4 GM PACKET PO SCH ×2 (09:32→16:30)
[2023-04-30] MEDS: ALBUTEROL NEBULIZED 2.5 MG/3 ML INHALATION PRN (20:10)
--- NOTE | 2023-04-30 21:26 | P.PN ---
Subjective Progress Note Date: 04/30/23 Patient is a 77-year-old female with a known history of atrial fibrillation not on anticoagulation, history of bladder cancer with urostomy and, multiple urinary tract infections, hypertension nausea osteoarthritis and GERD and history of permanent pacemaker placement, cardioversion and prior history of smoking presents to ER with complaints of generalized weakness. Patient has been having symptoms for the past 3 days. Patient states that she felt so weak that she could not get out of the chair and called EMS. Patient has been having chills at home. Patient is also febrile with Tmax 103 F on admission. Denies any complaints of abdominal pain. No nausea vomiting. No chest pain or shortness of breath. Chest x-ray showed no acute cardiopulmonary process. EKG showed sinus rhythm. Laboratory test showed WBC 4.8 hemoglobin 8.7 and platelets 173 Sodium 136 potassium 3.9 chloride 104 bicarb is 24 BUN 15 and creatinine 0.84, alk phos 144 and bilirubin level is 0.8 Urinalysis showed turbid positive nitrite large leukocyte esterase with elevated RBCs and WBCs. 04/28/2023 Patient is seen and evaluated in follow-up today currently sitting up in the chair with no acute overnight issues noted. Patient has chronic urostomy in the urine is clear although there continues to be some sediment and what appears to be sloughing of skin in the urostomy bag. Patient denies any flank pain or abd ominal pain. Patient is asking when she can go home. Currently maintained on IV antibiotics and awaiting urine culture results. Preliminary showing gram- negative bacilli. Patient is afebrile with no reports of shortness of breath or chest pain. 04/29/2023 Morning reports to feeling much better. Patient maintained on ceftriaxone and preliminary culture showing gram-negative bacilli awaiting for finalized cultures. Patient remains afebrile with no reports of chest pain or shortness of breath. Patient is tolerating diet and denies any nausea or vomiting. Patient reports urostomy is looking more clear today and not noticing any gritty sediment. 04/30/2023 Patient seen and evaluated in follow-up maintained on IV ertapenem with infectious disease following. Awaiting repeat urine cultures as initial culture showed ESBL. Patient does continue with urostomy showing clear yellow urine at this time. Patient did have an episode of abdominal upset with loose stool although has not had a bowel movement since. Patient feels this occurs a lot with antibiotic therapy. C. diff testing was ordered and not collected. Can use Pepto-Bismol as needed. Patient is afebrile with no reported chest pain or shortness of breath. Patient is tolerating diet with no reported nausea or vomiting. Review of systems: Constitutional: No reports of fatigue, fever, or chills Cardiovascular: No reports of chest pain or palpitations Respiratory: No reports of shortness of breath or cough GI: No reports of nausea, vomiting, or diarrhea : No reports of dysuria or retention Neurovascular: No reports of weakness or numbness All medications have been reviewed Physical exam: Gen: This is a pleasant 77-year-old female who is awake, alert and oriented 3, well-developed, well-nourished HEENT: Head is atraumatic, normocephalic. Pupils equal, round. Sclerae is a nicteric. NECK: Supple. No JVD. No lymphadenopathy. No thyromegaly. LUNGS: Clear to auscultation. No wheezes or rhonchi. No intercostal retractions. HEART: Regular rate and rhythm. No murmur. ABDOMEN: Soft. Bowel sounds are present. No masses. No tenderness. EXTREMITIES: No pedal edema. No calf tenderness. NEUROLOGICAL: Patient is awake, alert and oriented x3. Cranial nerves 2 through 12 are grossly intact. Assessment: Acute urinary tract infection, present on admission, secondary to urostomy tube, with ESBL Generalized weakness and fever, secondary to above. History of bladder cancer with urostomy tube placement Paroxysmal atrial fibrillation. Currently not on anticoagulation due to prior history of hematuria Osteoarthritis GERD History of permanent pacemaker placement and cardioversion DVT prophylaxis with heparin subcu GI prophylaxis Full code Plan: Recommend patient to continue with current medications including IV antibiotics although urine culture showing ESBL and infectious disease now following and changed antibiotics to ertapenem. Repeat urinalysis continues to be abnormal and will send for urine culture and await for finalized cultures to determine discharge antibiotics. Patient may likely require IV antibiotics outpatient. Will discuss further with infectious disease as there was discussion of midline for short-term IV antibiotics on discharge of which patient is agreeable. Case management following arranging for home care as well. Encourage oral intake and increased activity as tolerated Will await finalized cultures and discharge antibiotic recommendations. Possible midline placement tomorrow. The impression and plan of care has been dictated by Hien Feliciano, Nurse Practitioner as directed. Dr. Juan David MD I have performed a history and examination and MDM of this patient, discussed the same with the dictator, and agree with the dictator's assessment and plan as written ,documented as a scribe. Based on total visit time, I have performed more than 50% of the visit. Objective - Vital Signs Vital signs: Vital Signs Temp 98.2 F 04/30/23 12:19 Pulse 66 04/30/23 12:19 Resp 16 04/30/23 12:19 BP 134/78 04/30/23 12:19 Pulse Ox 96 04/30/23 12:19 FiO2 21 04/30/23 07:35 Intake & Output 04/30/23 04/30/23 05/01/23 06:59 18:59 06:59 Intake Total 450 Output Total 700 2024 Balance -250 -2024 Intake: Oral 450 Output: Urine 700 2024 Other: Voiding Method Ileal Conduit (Right) Ileal Conduit (Right) - Labs CBC & Chem 7: 04/30/23 06:08 04/30/23 06:08 Labs: Abnormal Lab Results - Last 24 Hours (Table) 04/30/23 Range/Units 06:08 WBC 3.94 L (4.50-10.00) X 10*3/uL RBC 3.68 L (4.10-5.20) X 10*6/uL Hgb 9.1 L (12.0-15.0) d/dL Hct 29.9 L (37.2-46.3) % MCH 24.7 L (27.0-32.0) pg MCHC 30.4 L (32.0-37.0) d/dL RDW 15.2 H (11.5-14.5) % Lymphocytes # 0.88 L (0.90-5.00) X 10*3/uL Microbiology - Last 24 Hours (Table) 04/29/23 15:30 Urine Culture - Preliminary Urine,Clean Catch Gram Neg Bacilli Group D Enterococcus 04/26/23 18:00 Blood Culture - Preliminary Blood 04/26/23 17:47 Blood Culture - Preliminary Blood
--- NOTE | 2023-04-30 21:56 | P.PN ---
Subjective Progress Note Date: 04/30/23 Principal diagnosis: ESBL E. coli urinary tract infection Patient is a 77-year-old female with a past medical history significant for hypertension osteoarthritis reflux atrial fibrillation patient did have a bladder cancer status post bladder resection and urostomy presenting to the hospital for evaluation of generalized weakness, patient did have a positive UA with concern for symptomatic UTI and urine culture finalized with ESBL E. coli. On today's evaluation that is 04/30/2023 the patient denies having any fever or any chills patient is breathing slightly cooperative and no chest pain shortness of breath, no bowel pain and denies any diarrhea Objective - Vital Signs Vital signs: Vital Signs Temp 98.2 F 04/30/23 12:19 Pulse 66 04/30/23 12:19 Resp 16 04/30/23 12:19 BP 134/78 04/30/23 12:19 Pulse Ox 96 04/30/23 12:19 FiO2 21 04/30/23 07:35 Intake & Output 04/29/23 04/30/23 04/30/23 18:59 06:59 18:59 Intake Total 450 Output Total 1100 700 575 Balance -1100 250 -575 Intake: Oral 450 Output: Urine 1100 700 575 Other: Voiding Method Ileal Conduit (Right) Ileal Conduit (Right) Ileal Conduit (Right) - Exam GENERAL DESCRIPTION: An elderly female lying in bed in no distress RESPIRATORY SYSTEM: Unlabored breathing , decreased breath sounds at bases HEART: S1 S2 regular rate and rhythm , ABDOMEN: Soft , no tenderness EXTREMITIES: No edema feet - Labs CBC & Chem 7: 04/30/23 06:08 04/30/23 06:08 Labs: Abnormal Lab Results - Last 24 Hours (Table) 04/29/23 04/30/23 Range/Units 15:30 06:08 WBC 3.94 L (4.50-10.00) X 10*3/uL RBC 3.68 L (4.10-5.20) X 10*6/uL Hgb 9.1 L (12.0-15.0) d/dL Hct 29.9 L (37.2-46.3) % MCH 24.7 L (27.0-32.0) pg MCHC 30.4 L (32.0-37.0) d/dL RDW 15.2 H (11.5-14.5) % Lymphocytes # 0.88 L (0.90-5.00) X 10*3/uL Urine Nitrite Positive H (Negative) Ur Leukocyte Esterase Large H (Negative) Urine WBC 26 H (0-5) /hpf Urine Bacteria Many H (None) /hpf Urine Mucus Moderate H (None) /hpf Microbiology - Last 24 Hours (Table) 04/26/23 18:00 Blood Culture - Preliminary Blood 04/26/23 17:47 Blood Culture - Preliminary Blood 04/26/23 17:47 Urine Culture - Final Urine,Voided Escherichia coli Assessment and Plan (1) Infection due to ESBL-producing Escherichia coli Current Visit: Yes Status: Acute Code(s): A49.8 - OTHER BACTERIAL INFECTIONS OF UNSPECIFIED SITE; Z16.12 - EXTENDED SPECTRUM BETA LACTAMASE (ESBL) RESISTANCE SNOMED Code(s): 047535871 (2) UTI (urinary tract infection) Current Visit: Yes Status: Acute Code(s): N39.0 - URINARY TRACT INFECTION, SITE NOT SPECIFIED SNOMED Code(s): 99500165 Plan: 1patient presented to hospital with fever and weakness did have significantly positive UA concerning for a complicated UTI as the patient denies any other o bvious focus of infection however the patient fever has resolved without getting treatment for pathogen that she is growing in the urine with a question of possible contaminant versus true pathogen 2Patient repeat urine is positive, we will continue the patient on Invanz we will order midline for outpatient IV antibiotics Dictation was produced using [employer] dictation software. please excuse any grammatical, word or spelling errors.
[2023-05-01] MEDS: HEPARIN SODIUM,PORCINE/PF 5,000 UNIT/0.5 ML SYRINGE SQ SCH ×4 (00:31→23:33)
[2023-05-01] MEDS: ERTAPENEM 1 GM in SODIUM CHLORIDE 0.9% 50 ML IVPB SCH (09:23)
[2023-05-01] MEDS: ASPIRIN 81 MG PO SCH (09:23)
[2023-05-01] MEDS: FUROSEMIDE 20 MG TAB PO SCH ×2 (09:24→17:38)
[2023-05-01] MEDS: METOPROLOL TARTRATE 25 MG TAB PO SCH ×2 (09:24→21:31)
[2023-05-01] MEDS: PANTOPRAZOLE 40 MG TABLET PO SCH (09:24)
[2023-05-01] MEDS: PROPAFENONE 150 MG TAB PO SCH ×2 (09:24→21:31)
[2023-05-01 09:58] VITALS: BMI 29.2
[2023-05-01] MEDS: CHOLESTYRAMINE (WITH SUGAR) 4 GM PACKET PO SCH ×2 (11:10→17:42)
--- NOTE | 2023-05-01 13:40 | P.PN ---
Subjective Patient is a 77-year-old female with a known history of atrial fibrillation not on anticoagulation, history of bladder cancer with urostomy and, multiple urinary tract infections, hypertension nausea osteoarthritis and GERD and history of permanent pacemaker placement, cardioversion and prior history of smoking presents to ER with complaints of generalized weakness. Patient has been having symptoms for the past 3 days. Patient states that she felt so weak that she could not get out of the chair and called EMS. Patient has been having chills at home. Patient is also febrile with Tmax 103 F on admission. Denies any complaints of abdominal pain. No nausea vomiting. No chest pain or shortness of breath. Chest x-ray showed no acute cardiopulmonary process. EKG showed sinus rhythm. Laboratory test showed WBC 4.8 hemoglobin 8.7 and platelets 173 Sodium 136 potassium 3.9 chloride 104 bicarb is 24 BUN 15 and creatinine 0.84, alk phos 144 and bilirubin level is 0.8 Urinalysis showed turbid positive nitrite large leukocyte esterase with elevated RBCs and WBCs. 04/28/2023 Patient is seen and evaluated in follow-up today currently sitting up in the chair with no acute overnight issues noted. Patient has chronic urostomy in the urine is clear although there continues to be some sediment and what appears to be sloughing of skin in the urostomy bag. Patient denies any flank pain or abdominal pain. Patient is asking when she can go home. Currently maintained on IV antibiotics and awaiting urine culture results. Preliminary showing gram- negative bacilli. Patient is afebrile with no reports of shortness of breath or chest pain. 04/29/2023 Morning reports to feeling much better. Patient maintained on ceftriaxone and preliminary culture showing gram-negative bacilli awaiting for finalized cultures. Patient remains afebrile with no reports of chest pain or shortness of breath. Patient is tolerating diet and denies any nausea or vomiting. Patient reports urostomy is looking more clear today and not noticing any gritty sediment. 04/30/2023 Patient seen and evaluated in follow-up maintained on IV ertapenem with i nfectious disease following. Awaiting repeat urine cultures as initial culture showed ESBL. Patient does continue with urostomy showing clear yellow urine at this time. Patient did have an episode of abdominal upset with loose stool although has not had a bowel movement since. Patient feels this occurs a lot with antibiotic therapy. C. diff testing was ordered and not collected. Can use Pepto-Bismol as needed. Patient is afebrile with no reported chest pain or shortness of breath. Patient is tolerating diet with no reported nausea or vomiting. 05/01/2023 Patient diarrhea and UTI signs and symptoms are improved Generalized weakness improving slowly and gradually and patient would like to see a physical therapist which is ordered now Urine culture is growing E. coli however repeat urine cultures, gram-negative bacilli and group D enterococci and final results still pending Currently patient remains on ertapenam with ID team on the case. Objective - Vital Signs Vital signs: Vital Signs Temp 98.4 F 05/01/23 12:23 Pulse 60 05/01/23 12:23 Resp 16 05/01/23 12:23 BP 124/70 05/01/23 12:23 Pulse Ox 94 L 05/01/23 12:23 FiO2 21 04/30/23 07:35 Intake & Output 04/30/23 05/01/23 05/01/23 18:59 06:59 18:59 Intake Total 400 Output Total 2024 1000 650 Balance -2024 -600 -650 Weight 77.111 kg Intake: Oral 400 Output: Urine 2024 1000 650 Other: Voiding Method Ileal Conduit (Right) Ileal Conduit (Right) Ileal Conduit (Right) - Exam -GENERAL: The patient is alert and oriented x3, not in any acute distress. Well developed, well nourished. Generally weak HEENT: Pupils are round and equally reacting to light. EOMI. No scleral icterus. No conjunctival pallor. Normocephalic, atraumatic. No pharyngeal erythema. No thyromegaly. CARDIOVASCULAR: S1 and S2 present. No murmurs, rubs, or gallops. PULMONARY: Chest is clear to auscultation, no wheezing , no crackles. ABDOMEN: Soft, nontender, nondistended, normoactive bowel sounds. No palpable organomegaly. MUSCULOSKELETAL: No joint swelling or deformity. EXTREMITIES: No cyanosis, clubbing, or pedal edema. NEUROLOGICAL: Gross neurological examination did not reveal any focal deficits. SKIN: No rashes. no petechiae. - Labs CBC & Chem 7: 04/30/23 06:08 04/30/23 06:08 Labs: Microbiology - Last 24 Hours (Table) 04/29/23 15:30 Urine Culture - Preliminary Urine,Clean Catch Gram Neg Bacilli Group D Enterococcus 04/26/23 18:00 Blood Culture - Preliminary Blood 04/26/23 17:47 Blood Culture - Preliminary Blood Assessment and Plan Assessment: Acute urinary tract infection, present on admission, secondary to urostomy tube, with ESBL complicated UTI. Generalized weakness and fever, secondary to above. History of bladder cancer with urostomy tube placement Paroxysmal atrial fibrillation. Currently not on anticoagulation due to prior history of hematuria Osteoarthritis GERD History of permanent pacemaker placement and cardioversion Plan: Continue with antibiotic currently she is on ertapenam Infectious disease consult Follow-up urine culture Labs and medication were reviewed.. Continue same treatment. Continue with symptomatic treatment. Resume home medication. Monitor labs and vitals. DVT and GI prophylaxis. Further recommendations as per clinical course of the patient DVT prophylaxis: Subcutaneous heparin GI Prophylaxis: Ppi PT/OT: Pending Prognosis is guarded
--- NOTE | 2023-05-01 16:17 | P.PN ---
Subjective Progress Note Date: 05/01/23 Principal diagnosis: ESBL E. coli urinary tract infection Patient is a 77-year-old female with a past medical history significant for hypertension osteoarthritis reflux atrial fibrillation patient did have a bladder cancer status post bladder resection and urostomy presenting to the hospital for evaluation of generalized weakness, patient did have a positive UA with concern for symptomatic UTI and urine culture finalized with ESBL E. coli. On today's evaluation that is 05/01/2023 the patient remains to be afebrile, patient is breathing comfortably on room air, the patient denies having any chest pain or shortness of breath or cough no abdominal pain or nausea vomiting or diarrhea Objective - Vital Signs Vital signs: Vital Signs Temp 97.8 F 05/01/23 07:15 Pulse 72 05/01/23 07:15 Resp 16 05/01/23 07:15 BP 129/73 05/01/23 07:15 Pulse Ox 95 05/01/23 08:22 FiO2 21 04/30/23 07:35 Intake & Output 04/30/23 05/01/23 05/01/23 18:59 06:59 18:59 Intake Total 400 Output Total 2024 1000 650 Balance -2024 -600 -650 Weight 77.111 kg Intake: Oral 400 Output: Urine 2024 1000 650 Other: Voiding Method Ileal Conduit (Right) Ileal Conduit (Right) Ileal Conduit (Right) - Exam GENERAL DESCRIPTION: An elderly female lying in bed in no distress RESPIRATORY SYSTEM: Unlabored breathing , decreased breath sounds at bases HEART: S1 S2 regular rate and rhythm , ABDOMEN: Soft , no tenderness EXTREMITIES: No edema feet - Labs CBC & Chem 7: 04/30/23 06:08 04/30/23 06:08 Labs: Microbiology - Last 24 Hours (Table) 04/29/23 15:30 Urine Culture - Preliminary Urine,Clean Catch Gram Neg Bacilli Group D Enterococcus 04/26/23 18:00 Blood Culture - Preliminary Blood 04/26/23 17:47 Blood Culture - Preliminary Blood Assessment and Plan (1) Infection due to ESBL-producing Escherichia coli Current Visit: Yes Status: Acute Code(s): A49.8 - OTHER BACTERIAL INFECTIONS OF UNSPECIFIED SITE; Z16.12 - EXTENDED SPECTRUM BETA LACTAMASE (ESBL) RESISTANCE SNOMED Code(s): 001751364 (2) UTI (urinary tract infection) Current Visit: Yes Status: Acute Code(s): N39.0 - URINARY TRACT INFECTION, SITE NOT SPECIFIED SNOMED Code(s): 91047484 Plan: 1patient presented to hospital with fever and weakness did have significantly positive UA concerning for a complicated UTI as the patient denies any other obvious focus of infection however the patient fever has resolved without getting treatment for pathogen that she is growing in the urine with a question of possible contaminant versus true pathogen 2Patient repeat urine is positive, with cultures currently pending we will continue the patient on Invanz in view of clinical response, patient did got midline currently waiting for arrangement for outpatient IV antibiotics Dictation was produced using [email or web address] dictation software. please excuse any grammatical, word or spelling errors. Time with Patient: Less than 30
[2023-05-01] MEDS: ZOLPIDEM 5 MG TAB PO PRN (21:31)
[2023-05-02] MEDS: METOPROLOL TARTRATE 25 MG TAB PO SCH ×2 (08:36→20:45)
[2023-05-02] MEDS: ASPIRIN 81 MG PO SCH (08:36)
[2023-05-02] MEDS: FUROSEMIDE 20 MG TAB PO SCH ×2 (08:36→16:32)
[2023-05-02] MEDS: PROPAFENONE 150 MG TAB PO SCH ×2 (08:36→20:45)
[2023-05-02] MEDS: PANTOPRAZOLE 40 MG TABLET PO SCH (08:36)
[2023-05-02] MEDS: HEPARIN SODIUM,PORCINE/PF 5,000 UNIT/0.5 ML SYRINGE SQ SCH ×3 (08:36→23:43)
[2023-05-02] MEDS: ERTAPENEM 1 GM in SODIUM CHLORIDE 0.9% 50 ML IVPB SCH (08:37)
[2023-05-02] MEDS: CHOLESTYRAMINE (WITH SUGAR) 4 GM PACKET PO SCH ×2 (09:53→18:05)
--- NOTE | 2023-05-02 18:15 | P.PN ---
Subjective Patient is a 77-year-old female with a known history of atrial fibrillation not on anticoagulation, history of bladder cancer with urostomy and, multiple urinary tract infections, hypertension nausea osteoarthritis and GERD and history of permanent pacemaker placement, cardioversion and prior history of smoking presents to ER with complaints of generalized weakness. Patient has been having symptoms for the past 3 days. Patient states that she felt so weak that she could not get out of the chair and called EMS. Patient has been having chills at home. Patient is also febrile with Tmax 103 F on admission. Denies any complaints of abdominal pain. No nausea vomiting. No chest pain or shortness of breath. Chest x-ray showed no acute cardiopulmonary process. EKG showed sinus rhythm. Laboratory test showed WBC 4.8 hemoglobin 8.7 and platelets 173 Sodium 136 potassium 3.9 chloride 104 bicarb is 24 BUN 15 and creatinine 0.84, alk phos 144 and bilirubin level is 0.8 Urinalysis showed turbid positive nitrite large leukocyte esterase with elevated RBCs and WBCs. 04/28/2023 Patient is seen and evaluated in follow-up today currently sitting up in the chair with no acute overnight issues noted. Patient has chronic urostomy in the urine is clear although there continues to be some sediment and what appears to be sloughing of skin in the urostomy bag. Patient denies any flank pain or abdominal pain. Patient is asking when she can go home. Currently maintained on IV antibiotics and awaiting urine culture results. Preliminary showing gram- negative bacilli. Patient is afebrile with no reports of shortness of breath or chest pain. 04/29/2023 Morning reports to feeling much better. Patient maintained on ceftriaxone and preliminary culture showing gram-negative bacilli awaiting for finalized cultures. Patient remains afebrile with no reports of chest pain or shortness of breath. Patient is tolerating diet and denies any nausea or vomiting. Patient reports urostomy is looking more clear today and not noticing any gritty sediment. 04/30/2023 Patient seen and evaluated in follow-up maintained on IV ertapenem with i nfectious disease following. Awaiting repeat urine cultures as initial culture showed ESBL. Patient does continue with urostomy showing clear yellow urine at this time. Patient did have an episode of abdominal upset with loose stool although has not had a bowel movement since. Patient feels this occurs a lot with antibiotic therapy. C. diff testing was ordered and not collected. Can use Pepto-Bismol as needed. Patient is afebrile with no reported chest pain or shortness of breath. Patient is tolerating diet with no reported nausea or vomiting. 05/01/2023 Patient diarrhea and UTI signs and symptoms are improved Generalized weakness improving slowly and gradually and patient would like to see a physical therapist which is ordered now Urine culture is growing E. coli however repeat urine cultures, gram-negative bacilli and group D enterococci and final results still pending Currently patient remains on ertapenam with ID team on the case. 05/02/2023 Patient improving slowly and gradually Urine culture is growing ESBL E. coli and vancomycin sensitive enterococci Patient has left upper extremity midline Continue on ertapenam with ID team on the case. Discussed with staff Objective - Vital Signs Vital signs: Vital Signs Temp 97.9 F 05/02/23 12:05 Pulse 62 05/02/23 12:05 Resp 18 05/02/23 12:05 BP 123/70 05/02/23 12:05 Pulse Ox 99 05/02/23 12:05 FiO2 21 05/02/23 08:54 Intake & Output 05/01/23 05/02/23 05/02/23 18:59 06:59 18:59 Output Total 2150 800 950 Balance -2150 -800 -950 Weight 77.111 kg Output: Urine 2150 800 950 Other: Voiding Method Ileal Conduit (Right) Ileal Conduit (Right) Ileal Conduit (Right) - Exam -GENERAL: The patient is alert and oriented x3, not in any acute distress. Well developed, well nourished. Generally weak HEENT: Pupils are round and equally reacting to light. EOMI. No scleral icterus. No conjunctival pallor. Normocephalic, atraumatic. No pharyngeal erythema. No thyromegaly. CARDIOVASCULAR: S1 and S2 present. No murmurs, rubs, or gallops. PULMONARY: Chest is clear to auscultation, no wheezing , no crackles. ABDOMEN: Soft, nontender, nondistended, normoactive bowel sounds. No palpable organomegaly. MUSCULOSKELETAL: No joint swelling or deformity. EXTREMITIES: No cyanosis, clubbing, or pedal edema. NEUROLOGICAL: Gross neurological examination did not reveal any focal deficits. SKIN: No rashes. no petechiae. - Labs CBC & Chem 7: 07/20/23 06:08 04/30/23 06:08 Labs: Microbiology - Last 24 Hours (Table) 04/26/23 18:00 Blood Culture - Final Blood 04/26/23 17:47 Blood Culture - Final Blood 04/29/23 15:30 Urine Culture - Final Urine,Clean Catch Escherichia coli Enterococcus faecalis Assessment and Plan Assessment: Acute urinary tract infection, present on admission, secondary to urostomy tube, with ESBL complicated UTI. Generalized weakness and fever, secondary to above. History of bladder cancer with urostomy tube placement Paroxysmal atrial fibrillation. Currently not on anticoagulation due to prior history of hematuria Osteoarthritis GERD History of permanent pacemaker placement and cardioversion Plan: Continue with antibiotic currently she is on ertapenam Infectious disease consult Follow-up urine culture Labs and medication were reviewed.. Continue same treatment. Continue with symptomatic treatment. Resume home medication. Monitor labs and vitals. DVT and GI prophylaxis. Further recommendations as per clinical course of the patient DVT prophylaxis: Subcutaneous heparin GI Prophylaxis: Ppi PT/OT: Pending Prognosis is guarded
[2023-05-02] MEDS: ALBUTEROL NEBULIZED 2.5 MG/3 ML INHALATION PRN (18:21)
[2023-05-02] MEDS: ZOLPIDEM 5 MG TAB PO PRN (20:46)
--- NOTE | 2023-05-03 08:06 | P.PN ---
Subjective Progress Note Date: 05/02/23 Principal diagnosis: ESBL E. coli urinary tract infection Patient is a 77-year-old female with a past medical history significant for hypertension osteoarthritis reflux atrial fibrillation patient did have a bladder cancer status post bladder resection and urostomy presenting to the hospital for evaluation of generalized weakness, patient did have a positive UA with concern for symptomatic UTI and urine culture finalized with ESBL E. coli. On today's evaluation that is 05/02/2023 the patient continues to be afebrile, patient is breathing comfortably on room air, the patient denies having any chest pain or shortness of breath or cough no abdominal pain or nausea vomiting or diarrhea, feeling better Objective - Vital Signs Vital signs: Vital Signs Temp 97.9 F 05/02/23 12:05 Pulse 62 05/02/23 12:05 Resp 18 05/02/23 12:05 BP 123/70 05/02/23 12:05 Pulse Ox 99 05/02/23 12:05 FiO2 21 05/02/23 08:54 Intake & Output 05/01/23 05/02/23 05/02/23 18:59 06:59 18:59 Output Total 2150 800 650 Balance -2150 -800 -650 Weight 77.111 kg Output: Urine 2150 800 650 Other: Voiding Method Ileal Conduit (Right) Ileal Conduit (Right) Ileal Conduit (Right) - Exam GENERAL DESCRIPTION: An elderly female lying in bed in no distress RESPIRATORY SYSTEM: Unlabored breathing , decreased breath sounds at bases HEART: S1 S2 regular rate and rhythm , ABDOMEN: Soft , no tenderness EXTREMITIES: No edema feet - Labs CBC & Chem 7: 04/30/23 06:08 04/30/23 06:08 Labs: Microbiology - Last 24 Hours (Table) 04/26/23 18:00 Blood Culture - Final Blood 04/26/23 17:47 Blood Culture - Final Blood 04/29/23 15:30 Urine Culture - Final Urine,Clean Catch Escherichia coli Enterococcus faecalis Assessment and Plan (1) Infection due to ESBL-producing Escherichia coli Current Visit: Yes Status: Acute Code(s): A49.8 - OTHER BACTERIAL INFECTIONS OF UNSPECIFIED SITE; Z16.12 - EXTENDED SPECTRUM BETA LACTAMASE (ESBL) RESISTANCE SNOMED Code(s): 831662924 (2) UTI (urinary tract infection) Current Visit: Yes Status: Acute Code(s): N39.0 - URINARY TRACT INFECTION, SITE NOT SPECIFIED SNOMED Code(s): 21963585 Plan: 1patient presented to hospital with fever and weakness did have significantly positive UA concerning for a complicated UTI as the patient denies any other obvious focus of infection however the patient fever has resolved without g etting treatment for pathogen that she is growing in the urine with a question of possible contaminant versus true pathogen 2Patient repeat urine is positive, and the cultures did grew ESBL E. coli and enterococcus for the patient is covered with Invanz, currently waiting for outpatient IV antibiotic arrangement for discharge Dictation was produced using [employer] dictation software. please excuse any grammatical, word or spelling errors. Time with Patient: Less than 30
[2023-05-03] MEDS: METOPROLOL TARTRATE 25 MG TAB PO SCH ×2 (09:16→20:31)
[2023-05-03] MEDS: ASPIRIN 81 MG PO SCH (09:16)
[2023-05-03] MEDS: FUROSEMIDE 20 MG TAB PO SCH ×2 (09:16→16:38)
[2023-05-03] MEDS: HEPARIN SODIUM,PORCINE/PF 5,000 UNIT/0.5 ML SYRINGE SQ SCH ×3 (09:16→23:59)
[2023-05-03] MEDS: PROPAFENONE 150 MG TAB PO SCH ×2 (09:16→20:33)
[2023-05-03] MEDS: PANTOPRAZOLE 40 MG TABLET PO SCH (09:16)
[2023-05-03] MEDS: ERTAPENEM 1 GM in SODIUM CHLORIDE 0.9% 50 ML IVPB SCH (09:16)
[2023-05-03] MEDS: CHOLESTYRAMINE (WITH SUGAR) 4 GM PACKET PO SCH ×2 (09:41→18:05)
[2023-05-03] MEDS: ZOLPIDEM 5 MG TAB PO PRN (20:31)
--- NOTE | 2023-05-03 21:43 | P.PN ---
Subjective Patient is a 77-year-old female with a known history of atrial fibrillation not on anticoagulation, history of bladder cancer with urostomy and, multiple urinary tract infections, hypertension nausea osteoarthritis and GERD and history of permanent pacemaker placement, cardioversion and prior history of smoking presents to ER with complaints of generalized weakness. Patient has been having symptoms for the past 3 days. Patient states that she felt so weak that she could not get out of the chair and called EMS. Patient has been having chills at home. Patient is also febrile with Tmax 103 F on admission. Denies any complaints of abdominal pain. No nausea vomiting. No chest pain or shortness of breath. Chest x-ray showed no acute cardiopulmonary process. EKG showed sinus rhythm. Laboratory test showed WBC 4.8 hemoglobin 8.7 and platelets 173 Sodium 136 potassium 3.9 chloride 104 bicarb is 24 BUN 15 and creatinine 0.84, alk phos 144 and bilirubin level is 0.8 Urinalysis showed turbid positive nitrite large leukocyte esterase with elevated RBCs and WBCs. 04/28/2023 Patient is seen and evaluated in follow-up today currently sitting up in the chair with no acute overnight issues noted. Patient has chronic urostomy in the urine is clear although there continues to be some sediment and what appears to be sloughing of skin in the urostomy bag. Patient denies any flank pain or abdominal pain. Patient is asking when she can go home. Currently maintained on IV antibiotics and awaiting urine culture results. Preliminary showing gram- negative bacilli. Patient is afebrile with no reports of shortness of breath or chest pain. 04/29/2023 Morning reports to feeling much better. Patient maintained on ceftriaxone and preliminary culture showing gram-negative bacilli awaiting for finalized cultures. Patient remains afebrile with no reports of chest pain or shortness of breath. Patient is tolerating diet and denies any nausea or vomiting. Patient reports urostomy is looking more clear today and not noticing any gritty sediment. 04/30/2023 Patient seen and evaluated in follow-up maintained on IV ertapenem with i nfectious disease following. Awaiting repeat urine cultures as initial culture showed ESBL. Patient does continue with urostomy showing clear yellow urine at this time. Patient did have an episode of abdominal upset with loose stool although has not had a bowel movement since. Patient feels this occurs a lot with antibiotic therapy. C. diff testing was ordered and not collected. Can use Pepto-Bismol as needed. Patient is afebrile with no reported chest pain or shortness of breath. Patient is tolerating diet with no reported nausea or vomiting. 05/01/2023 Patient diarrhea and UTI signs and symptoms are improved Generalized weakness improving slowly and gradually and patient would like to see a physical therapist which is ordered now Urine culture is growing E. coli however repeat urine cultures, gram-negative bacilli and group D enterococci and final results still pending Currently patient remains on ertapenam with ID team on the case. 05/02/2023 Patient improving slowly and gradually Urine culture is growing ESBL E. coli and vancomycin sensitive enterococci Patient has left upper extremity midline Continue on ertapenam with ID team on the case. Discussed with staff 05/03/2023 pt is clincaly stable she is pending arragnement for outpatient abx , as today is weekend mid line in place on ertapenem Objective - Vital Signs Vital signs: Vital Signs Temp 98.6 F 05/03/23 19:11 Pulse 61 05/03/23 19:11 Resp 18 05/03/23 19:11 BP 113/68 05/03/23 19:11 Pulse Ox 95 05/03/23 19:11 FiO2 21 05/03/23 09:01 Intake & Output 05/03/23 05/03/23 05/04/23 06:59 18:59 06:59 Output Total 750 700 300 Balance -750 -700 -300 Output: Urine 750 700 300 Other: Voiding Method Ileal Conduit (Right) Ileal Conduit (Right) # Bowel Movements 1 - Exam -GENERAL: The patient is alert and oriented x3, not in any acute distress. Well developed, well nourished. Generally weak HEENT: Pupils are round and equally reacting to light. EOMI. No scleral icterus. No conjunctival pallor. Normocephalic, atraumatic. No pharyngeal erythema. No thyromegaly. CARDIOVASCULAR: S1 and S2 present. No murmurs, rubs, or gallops. PULMONARY: Chest is clear to auscultation, no wheezing , no crackles. ABDOMEN: Soft, nontender, nondistended, normoactive bowel sounds. No palpable organomegaly. MUSCULOSKELETAL: No joint swelling or deformity. EXTREMITIES: No cyanosis, clubbing, or pedal edema. NEUROLOGICAL: Gross neurological examination did not reveal any focal deficits. SKIN: No rashes. no petechiae. - Labs CBC & Chem 7: 04/30/23 06:08 04/30/23 06:08 Assessment and Plan Assessment: Acute urinary tract infection, present on admission, secondary to urostomy tube, with ESBL complicated UTI. Generalized weakness and fever, secondary to above. History of bladder cancer with urostomy tube placement Paroxysmal atrial fibrillation. Currently not on anticoagulation due to prior history of hematuria Osteoarthritis GERD History of permanent pacemaker placement and cardioversion Plan: Continue with antibiotic currently she is on ertapenam Infectious disease consult Follow-up urine culture Labs and medication were reviewed.. Continue same treatment. Continue with symptomatic treatment. Resume home medication. Monitor labs and vitals. DVT and GI prophylaxis. Further recommendations as per clinical course of the patient DVT prophylaxis: Subcutaneous heparin GI Prophylaxis: Ppi PT/OT: Pending Prognosis is guarded
[2023-05-03] MEDS: ALBUTEROL NEBULIZED 2.5 MG/3 ML INHALATION PRN (23:43)
[2023-05-04 07:59] VITALS: RESP 16
[2023-05-04] MEDS: CHOLESTYRAMINE (WITH SUGAR) 4 GM PACKET PO SCH (09:09)
[2023-05-04] MEDS: METOPROLOL TARTRATE 25 MG TAB PO SCH (09:09)
[2023-05-04] MEDS: PANTOPRAZOLE 40 MG TABLET PO SCH (09:09)
[2023-05-04] MEDS: ASPIRIN 81 MG PO SCH (09:09)
[2023-05-04] MEDS: ERTAPENEM 1 GM in SODIUM CHLORIDE 0.9% 50 ML IVPB SCH (09:09)
[2023-05-04] MEDS: HEPARIN SODIUM,PORCINE/PF 5,000 UNIT/0.5 ML SYRINGE SQ SCH (09:09)
[2023-05-04] MEDS: PROPAFENONE 150 MG TAB PO SCH (09:09)
[2023-05-04] MEDS: FUROSEMIDE 20 MG TAB PO SCH (09:09)
[2023-05-04 12:41] VITALS: BP 113/67; PULSE 58; TEMP 98.2
--- NOTE | 2023-05-12 00:12 | P.DS ---
Providers Date of admission: 04/26/23 21:14 Attending physician: Sharri Fall Consults: 04/29/23 12:58 Consult Physician Urgent Consulting Provider: Rosas Murillo Consult Reason/Comments: ecoli, esbl, abx recs? Do you want consulting provider notified?: Yes Primary care physician: Krystal Moya Hospital Course: Diagnoses: Acute urinary tract infection, present on admission, secondary to urostomy tube, with ESBL complicated UTI. Generalized weakness and fever, secondary to above. History of bladder cancer with urostomy tube placement Paroxysmal atrial fibrillation. Currently not on anticoagulation due to prior history of hematuria Osteoarthritis GERD History of permanent pacemaker placement and cardioversion Hospital course: Patient is a 77-year-old female with a known history of atrial fibrillation not on anticoagulation, history of bladder cancer with urostomy and, multiple urinary tract infections, hypertension nausea osteoarthritis and GERD and history of permanent pacemaker placement, cardioversion and prior history of smoking presents to ER with complaints of generalized weakness. Patient has been having symptoms for the past 3 days. Is found to have acute urinary tract infection and she was treated with antibiotics per ID team. Urine culture is growing ESBL E. coli and vancomycin sensitive enterococci Patient has left upper extremity midline. Patient will be discharged on outpatient IV antibiotic to 5 days per ID team recommendation. Patient's symptoms improved and she agrees to go home. Physical therapy evaluation obtained and patient will go home with home care. Problems and management plan were discussed with the patient and he verbalized understanding and acceptance Patient was found stable and can be discharged home in guarded prognosis however he needs follow-up as an outpatient. Patient was instructed to follow up with PCP Dr. Mcdaniel within one week and patient agrees Physical exam Gen: patient is a AAOx3, no distress CVS: S1-S2, RRR, no murmur Lungs: B/L CTA, no wheezing Abdomen: soft, no distention, no tenderness, positive bowel sounds Extremity: no leg edema or induration Time spent more than 35 minutes Patient Condition at Discharge: Stable Plan - Discharge Summary Discharge Rx Participant: Yes New Discharge Prescriptions: New Ertapenem [INVanz] 1 gm IVPB Q24H #5 each Continue Omeprazole [PriLOSEC] 20 mg PO Q48H Potassium Chloride [K-Tab ER] 10 meq PO DAILY Metoprolol Tartrate [Lopressor] 25 mg PO BID #60 tab Furosemide [Lasix] 20 mg PO BID Propafenone HCl 150 mg PO BID Zolpidem [Ambien] 5 mg PO HS PRN PRN Reason: Insomnia Ondansetron [Zofran] 4 mg PO BID PRN PRN Reason: Nausea Baclofen [Lioresal] 10 mg PO HS PRN PRN Reason: muscle spasms Aspirin EC [Ecotrin Low Dose] 81 mg PO DAILY Meclizine [Antivert] 25 mg PO TID PRN PRN Reason: Vertigo Magnesium Citrate and Oxide [Magnesium] 250 mg PO DAILY Albuterol Inhaler [Ventolin Hfa Inhaler] 2 puff INHALATION TID PRN PRN Reason: Shortness Of Breath Discontinued Ibuprofen [Motrin] 800 mg PO DAILY PRN PRN Reason: Pain Or Fever > 100.5 Discharge Medication List Omeprazole [PriLOSEC] 20 mg PO Q48H 02/05/15 [History] Potassium Chloride [K-Tab ER] 10 meq PO DAILY 09/01/16 [History] Metoprolol Tartrate [Lopressor] 25 mg PO BID #60 tab 12/21/16 [Rx] Furosemide [Lasix] 20 mg PO BID 06/02/20 [History] Propafenone HCl 150 mg PO BID 06/02/20 [History] Ondansetron [Zofran] 4 mg PO BID PRN 03/21/22 [History] Aspirin EC [Ecotrin Low Dose] 81 mg PO DAILY 04/26/23 [History] Baclofen [Lioresal] 10 mg PO HS PRN 04/26/23 [History] Zolpidem [Ambien] 5 mg PO HS PRN 04/26/23 [History] Albuterol Inhaler [Ventolin Hfa Inhaler] 2 puff INHALATION TID PRN 04/27/23 [History] Magnesium Citrate and Oxide [Magnesium] 250 mg PO DAILY 04/27/23 [History] Meclizine [Antivert] 25 mg PO TID PRN 04/27/23 [History] Ertapenem [INVanz] 1 gm IVPB Q24H #5 each 05/04/23 [Rx] Follow up Appointment(s)/Referral(s): Nita Rice MD [Primary Care Provider] - 1-2 days (please call the office to schedule a follow up appointment. [phone]) [facility], [NON-STAFF] - 1 Week (Will come tomorrow 05/05/23 - if you don't here from them, call the number listed) [facility], [REFERRING] - 1 Week (Antibiotic with be delivered this afternoon between 6pm-8pm) Patient Instructions/Handouts: Ertapenem (By injection), Urinary Tract Infection in Women (DC), Extended Spectrum Beta Lactamase (GEN), How to Care for Your Midline Catheter (DC) Activity/Diet/Wound Care/Special Instructions: Heart healthy diet activity is restricted till you see your doctor please discontinue the INTRAVENOUS midline after she finishes her course of intravenous antibiotic Discharge Disposition: HOME WITH HOME HEALTH SERVICES
--- NOTE | 2023-05-22 14:53 | P.PN ---
Subjective Progress Note Date: 05/03/23 Principal diagnosis: ESBL E. coli urinary tract infection Patient is a 77-year-old female with a past medical history significant for hypertension osteoarthritis reflux atrial fibrillation patient did have a bladder cancer status post bladder resection and urostomy presenting to the hospital for evaluation of generalized weakness, patient did have a positive UA with concern for symptomatic UTI and urine culture finalized with ESBL E. coli. On today's evaluation that is 05/03/2023 the patient denies any fever or any chills, patient is breathing comfortably on room air, the patient denies having any chest pain or shortness of breath or cough no abdominal pain or nausea vomiting or diarrhea, the patient is feeling better and no new symptoms Objective - Vital Signs Vital signs: Vital Signs Temp 98.3 F 05/03/23 11:58 Pulse 60 05/03/23 11:58 Resp 18 05/03/23 11:58 BP 105/65 05/03/23 11:58 Pulse Ox 95 05/03/23 11:58 FiO2 21 05/03/23 09:01 Intake & Output 05/02/23 05/03/23 05/03/23 18:59 06:59 18:59 Output Total 950 750 Balance -950 -750 Output: Urine 950 750 Other: Voiding Method Ileal Conduit (Right) Ileal Conduit (Right) Ileal Conduit (Right) # Bowel Movements 1 - Exam GENERAL DESCRIPTION: An elderly female lying in bed in no distress RESPIRATORY SYSTEM: Unlabored breathing , decreased breath sounds at bases HEART: S1 S2 regular rate and rhythm , ABDOMEN: Soft , no tenderness EXTREMITIES: No edema feet - Labs CBC & Chem 7: 04/30/23 06:08 04/30/23 06:08 Labs: Microbiology - Last 24 Hours (Table) 04/26/23 18:00 Blood Culture - Final Blood 04/26/23 17:47 Blood Culture - Final Blood Assessment and Plan (1) Infection due to ESBL-producing Escherichia coli Status: Acute Code(s): A49.8 - OTHER BACTERIAL INFECTIONS OF UNSPECIFIED SITE; Z16.12 - EXTENDED SPECTRUM BETA LACTAMASE (ESBL) RESISTANCE SNOMED Code(s): 461315009 (2) UTI (urinary tract infection) Status: Acute Code(s): N39.0 - URINARY TRACT INFECTION, SITE NOT SPECIFIED SNOMED Code(s): 36597586 Plan: 1patient presented to hospital with fever and weakness did have significantly positive UA concerning for a complicated UTI as the patient denies any other obvious focus of infection however the patient fever has resolved without getting treatment for pathogen that she is growing in the urine with a question of possible contaminant versus true pathogen 2Patient repeat urine is positive, and the cultures did grew ESBL E. coli and enterococcus for which the patient is covered with Invanz, plan is to continue for another 6 days, the patient is currently waiting for outpatient IV antibiotic arrangement for discharge Dictation was produced using [email or web address] dictation software. please excuse any grammatical, word or spelling errors. Time with Patient: Less than 30
--- NOTE | 2023-05-22 14:54 | P.PN ---
Subjective Progress Note Date: 05/04/23 Principal diagnosis: ESBL E. coli urinary tract infection Patient is a 77-year-old female with a past medical history significant for hypertension osteoarthritis reflux atrial fibrillation patient did have a bladder cancer status post bladder resection and urostomy presenting to the hospital for evaluation of generalized weakness, patient did have a positive UA with concern for symptomatic UTI and urine culture finalized with ESBL E. coli. On today's evaluation that is 05/04/2023 the patient remains to be afebrile, the patient is breathing comfortably on room air, the patient denies chest pain or shortness of breath or cough the patient denies nausea vomiting no abdominal pain or diarrhea, the patient is feeling better and wants to go home Objective - Vital Signs Vital signs: Vital Signs Temp 98.2 F 05/04/23 12:31 Pulse 58 L 05/04/23 12:31 Resp 16 05/04/23 12:31 BP 113/67 05/04/23 12:31 Pulse Ox 96 05/04/23 12:31 FiO2 21 05/03/23 09:01 Intake & Output 05/03/23 05/04/23 05/04/23 18:59 06:59 18:59 Intake Total 300 Output Total 700 1000 Balance -700 -700 Intake: Oral 300 Output: Urine 700 1000 Other: Voiding Method Ileal Conduit (Right) Ileal Conduit (Right) Ileal Conduit (Right) # Bowel Movements 1 - Exam GENERAL DESCRIPTION: An elderly female lying in bed in no distress RESPIRATORY SYSTEM: Unlabored breathing , decreased breath sounds at bases HEART: S1 S2 regular rate and rhythm , ABDOMEN: Soft , no tenderness EXTREMITIES: No edema feet - Labs CBC & Chem 7: 04/30/23 06:08 04/30/23 06:08 Assessment and Plan (1) Infection due to ESBL-producing Escherichia coli Status: Acute Code(s): A49.8 - OTHER BACTERIAL INFECTIONS OF UNSPECIFIED SITE; Z16.12 - EXTENDED SPECTRUM BETA LACTAMASE (ESBL) RESISTANCE SNOMED Code(s): 001522221 (2) UTI (urinary tract infection) Status: Acute Code(s): N39.0 - URINARY TRACT INFECTION, SITE NOT SPECIFIED SNOMED Code(s): 20346342 Plan: 1patient presented to hospital with fever and weakness did have significantly positive UA concerning for a complicated UTI as the patient denies any other obvious focus of infection however the patient fever has resolved without getting treatment for pathogen that she is growing in the urine with a question of possible contaminant versus true pathogen 2Patient repeat urine is positive, and the cultures did grew ESBL E. coli and enterococcus for which the patient is covered with Invanz, plan is to continue f or 5 days on discharge to finish her course of therapy and the line should be discontinued after her last dose Dictation was produced using [employer] software. please excuse any grammatical, word or spelling errors. Time with Patient: Less than 30
== END 2023-05-04 17:01 | disposition home health service (06) ==
LOC: EC 17:17 → 5NMEDONC 21:14 → INTOOBSV 21:14 → 5NMEDONC 21:58 → UNDODISIN 05-04 17:01
PROVIDERS: ADMIT Internal Medicine; ATTEND Internal Medicine
DX: T83.518A Infection and inflammatory reaction due to other urinary catheter, initial encounter (principal); N99.511 Cystostomy infection; N39.0 Urinary tract infection, site not specified; I70.0 Atherosclerosis of aorta; K21.9 Gastro-esophageal reflux disease without esophagitis; I48.0 Paroxysmal atrial fibrillation; B96.20 Unspecified Escherichia coli [E. coli] as the cause of diseases classified elsewhere; I10 Essential (primary) hypertension; I45.19 Other right bundle-branch block; F41.9 Anxiety disorder, unspecified; N26.1 Atrophy of kidney (terminal); Z79.899 Other long term (current) drug therapy; Z79.82 Long term (current) use of aspirin; Z88.7 Allergy status to serum and vaccine; Z88.6 Allergy status to analgesic agent; Z85.51 Personal history of malignant neoplasm of bladder; Z90.710 Acquired absence of both cervix and uterus; Z95.0 Presence of cardiac pacemaker; Z98.42 Cataract extraction status, left eye; Z98.41 Cataract extraction status, right eye; Z87.891 Personal history of nicotine dependence; Z82.5 Family history of asthma and other chronic lower respiratory diseases; Z82.3 Family history of stroke; Z83.79 Family history of other diseases of the digestive system; Z83.438 Family history of other disorder of lipoprotein metabolism and other lipidemia; Z20.822 Contact with and (suspected) exposure to COVID-19; Z88.8 Allergy status to other drugs, medicaments and biological substances; Y84.6 Urinary catheterization as the cause of abnormal reaction of the patient, or of later complication, without mention of misadventure at the time of the procedure
CPT/HCPCS: 96365 ×3; 96372 ×7; 96366 ×5; 96367; 96376; 96361; 99285; 36415; 94640 ×7; 94760 ×7; 93005; 97530; 97162; 97166; 36410; 76937; 80053; 80048 ×2; 83605; 85025 ×4; 85610; 85730; 81001 ×2; 87040; 87086 ×2; 87077 ×2; 87186 ×2; 87636; 71046; 76770; G0378 ×9; C1751; J0696 ×4; J1335 ×6; J1644 ×7; 96374

== ENCOUNTER → 2024-02-02 | Outpatient (CLI) | payer MEDICARE, OTHER ==
[2024-02-02 21:50] LABS: NT-Pro-B-Type Natriuretic Pept 309 pg/mL (0-450)
[2024-02-02 22:16] LABS: ALT 9 U/L (8-44); AST 15 U/L (13-35); Albumin 4.2 g/dL (3.8-4.9); Albumin/Globulin Ratio 1.56 Ratio (1.60-3.17); Alkaline Phosphatase 117 U/L (41-126); Blood Urea Nitrogen 23.7 mg/dL (9.0-27.0); Calcium 10.1 mg/dL (8.7-10.3); Carbon Dioxide 24.8 mmol/L (21.6-31.8); Chloride 102 mmol/L (96-109); Chol/HDL Ratio 4.13 Ratio; Globulin 2.7 g/dL (1.6-3.3); Glucose 95 mg/dL (70-110); LDL Cholesterol,Calculated 137.7 mg/dL (0.0-131.0); Potassium 4.7 mmol/L (3.5-5.5); Sodium 139 mmol/L (135-145); Total Bilirubin 0.3 mg/dL (0.3-1.2); Total Protein 6.9 g/dL (6.2-8.2)
== END | disposition home or self-care (01) ==
LOC: LABWHC1 09:21
PROVIDERS: ATTEND Internal Medicine Interventional Cardiology
DX: E78.2 Mixed hyperlipidemia (principal); R06.02 Shortness of breath
CPT/HCPCS: 36415; 80053; 80061; 83880

== ENCOUNTER 2024-02-11 14:49 | Emergency (ER) | payer MEDICARE, OTHER ==
[2024-02-11 15:19] VITALS: TEMP 98
--- NOTE | 2024-02-11 15:54 | ED ---
General Adult HPI - General Chief complaint: Abdominal Pain Stated complaint: ABD pain Time Seen by Provider: 02/11/24 15:04 Source: patient, EMS, RN notes reviewed, old records reviewed Mode of arrival: ambulatory - History of Present Illness Initial comments: 78-year-old female presenting with lower abdominal pain. Patient has history of urostomy secondary to bladder cancer and this was in the distant past. Patient reports nausea without vomiting. She reports some constipation as well. She denies measured fever but states she has had chills. She also reports signific ant bilateral lower extremity edema which has progressed over the past several days. - Related Data Home Medications Medication Instructions Recorded Confirmed Omeprazole [PriLOSEC] 20 mg PO Q48H 02/05/15 02/11/24 Potassium Chloride [K-Tab ER] 10 meq PO HS 09/01/16 02/11/24 Furosemide [Lasix] 20 mg PO BID 06/02/20 02/11/24 Ondansetron [Zofran] 4 mg PO BID PRN 03/21/22 02/11/24 Zolpidem [Ambien] 5 mg PO HS PRN 04/26/23 02/11/24 Meclizine [Antivert] 25 mg PO TID PRN 04/27/23 02/11/24 Aspirin EC [Ecotrin] 325 mg PO DAILY 02/11/24 02/11/24 Calcium/Magnesium/Vit D3/[place] 1 cap PO BID 02/11/24 02/11/24 [Calcium-Mag Oxide-Vit D3 Sftgl] Ibuprofen [Motrin] 800 mg PO DAILY PRN 02/11/24 02/11/24 Previous Rx's Medication Instructions Recorded Metoprolol Tartrate [Lopressor] 25 mg PO BID #60 tab 12/21/16 traMADol HCL 50 mg PO Q6H 3 Days #12 tab 02/11/24 Allergies Allergy/AdvReac Type Severity Reaction Status Date / Time ether Allergy Anaphylaxis Verified 02/11/24 15:51 formaldehyde Allergy Anaphylaxis Verified 02/11/24 15:51 tetanus and diphtheria Allergy Unknown Verified 02/11/24 15:51 toxoids [tetanus & diphtheria toxoids] codeine AdvReac Nausea Verified 02/11/24 15:51 Review of Systems ROS Statement: Those systems with pertinent positive or pertinent negative responses have been documented in the HPI. ROS Other: All systems not noted in ROS Statement are negative. Past Medical History Past Medical History: Atrial Fibrillation, Cancer, GERD/Reflux, Hypertension, Osteoarthritis (OA) Additional Past Medical History / Comment(s): bladder cancer with urostomy, Small Bowel Obstruction, vertigo History of Any Multi-Drug Resistant Organisms: None Reported Date of last positivie culture/infection: 04/29/23 MDRO Source:: Urine Past Surgical History: Ablation, Bladder Surgery, Heart Catheterization, Hernia Repair, Hysterectomy, Orthopedic Surgery, Pacemaker, Tonsillectomy Additional Past Surgical History / Comment(s): LEFT HIP SURGERY x 5, GRAFTS AND MARNIE 2015, ablasion CARDIOVERSION, urostomy 10/2010, cataracts 2017 Past Anesthesia/Blood Transfusion Reactions: Previous Problems w/ Anesthesia Additional Past Anesthesia/Blood Transfusion Reaction / Comment(s): asthma attack Type of Cardiac Device: Permanent Pacemaker Device Placement Date:: 2012 Past Psychological History: Anxiety Smoking Status: Former smoker Past Alcohol Use History: Occasional Past Drug Use History: None Reported - Past Family History Mother Family Medical History: Asthma, GERD/Reflux Additional Family Medical History / Comment(s): diverticulitus, glaucoma Father Family Medical History: Hyperlipidemia Additional Family Medical History / Comment(s): stroke, brain tumour General Exam General appearance: alert, in no apparent distress Head exam: Present: atraumatic, normocephalic Eye exam: Present: normal appearance, PERRL ENT exam: Present: normal exam Neck exam: Present: normal inspection. Absent: tenderness, meningismus Respiratory exam: Present: normal lung sounds bilaterally. Absent: respiratory distress, wheezes Cardiovascular Exam: Present: regular rate, normal rhythm GI/Abdominal exam: Present: soft, tenderness (Very minimal lower abdominal tenderness). Absent: distended Extremities exam: Present: pedal edema Neurological exam: Present: alert, oriented X3 Psychiatric exam: Present: normal affect, normal mood Skin exam: Present: warm, dry, intact Course Vital Signs 02/11/24 02/11/24 02/11/24 14:57 17:06 19:10 Temperature 98.0 F Pulse Rate 75 73 75 Respiratory 20 18 20 Rate Blood Pressure 138/85 149/62 126/72 O2 Sat by Pulse 97 96 96 Oximetry Medical Decision Making - Medical Decision Making Was pt. sent in by a medical professional or institution (, PA, BEAN SORTER, urgent care, hospital, or snf...) When possible be specific @ -No Did you speak to anyone other than the patient for history (EMS, parent, family, police, friend...)? What history was obtained from this source @ -No Did you review nursing and triage notes (agree or disagree)? Why? @ -I reviewed and agree with nursing and triage notes Were old charts reviewed (outside hosp., previous admission, EMS record, old EKG, old radiological studies, urgent care reports/EKG's, snf records)? Report findings @ -No old charts were reviewed Differential Abdominal Pain Women: Appendicitis, Cholecystitis, diverticulosis, ischemic bowel, pancreatitis, hepatitis, UTI, gastroenteritis, AAA, incarcerated hernia, bowel obstruction, constipation, inflammatory bowel, hepatitis, peptic ulcer disease, splenic inf arction, perforated viscus, vulvitis, ovarian torsion, PID, kidney stone, placenta abruption, this is not meant to be an all-inclusive list EKG interpreted by me (3pts min.). @Sinus rhythm rate of 60, NV interval 167, QRS duration 93, QTc [address] segment elevation. X-rays interpreted by me (1pt min.). @ -Chest x-ray negative for acute cardiopulmonary findings CT interpreted by me (1pt min.). @CT negative for acute intra-abdominal findings. U/S interpreted by me (1pt. min.). @ -None done What testing was considered but not performed or refused? (CT, X-rays, U/S, labs)? Why? @ -None What meds were considered but not given or refused? Why? @ -None Did you discuss the management of the patient with other professionals (professionals i.e. , PA, BEAN S[employer]TER, lab, RT, psych nurse, social services, trim carpenter, teacher, equal employment opportunity officer, medical case worker)? Give summary @ -No Was smoking cessation discussed for >3mins.? @ -No Was critical care preformed (if so, how long)? @ -No Were there social determinants of health that impacted care today? How? (Homelessness, low income, unemployed, alcoholism, drug addiction, transportation, low edu. Level, literacy, decrease access to med. care, prison, rehab)? @ -No Was there de-escalation of care discussed even if they declined (Discuss DNR or withdrawal of care, Hospice)? DNR status @ -No What co-morbidities impacted this encounter? (DM, HTN, Smoking, COPD, CAD, Cancer, CVA, ARF, Chemo, Hep., AIDS, mental health diagnosis, sleep apnea, morbid obesity)? @ -None Was patient admitted / discharged? Hospital course, mention meds given and route, prescriptions, significant lab abnormalities, going to OR and other pertinent info. @78-year-old female with lower abdominal pain. Patient afebrile stable vitals. No significant tenderness on exam. Workup reveals chronic anemia with at baseline. No leukocytosis. Normal CMP, negative lactic, chest x-ray and CT abdomen do not show any specific acute process. Patient reevaluated, resting comfortably. Informed of results. She is stable for discharge with outpatient follow-up at this time return parameters discussed. Undiagnosed new problem with uncertain prognosis? @ -No Drug Therapy requiring intensive monitoring for toxicity (Heparin, Nitro, Insulin, Cardizem)? @ -No Were any procedures done? @ -No Diagnosis/symptom? @ -[Abdominal pain Acute, or Chronic, or Acute on Chronic? @ -Acute Uncomplicated (without systemic symptoms) or Complicated (systemic symptoms)? @ -[default Side effects of treatment? @ -No Exacerbation, Progression, or Severe Exacerbation? @ -No Poses a threat to life or bodily function? How? (Chest pain, [place], [place], pneumonia, PE, COPD, DKA, ARF, appy, cholecystitis, CVA, Diverticulitis, Homicidal, Suicidal, threat to staff... and all critical care pts) @ -Low risk at this time - Lab Data Result diagrams: 02/11/24 16:08 02/11/24 16:08 Lab Results 02/11/24 02/11/24 02/11/24 Range/Units 16:08 16:08 16:08 WBC 4.7 (3.8-10.6) k/uL RBC 4.17 (3.80-5.40) m/uL Hgb 10.2 L (11.4-16.0) gm/dL Hct 33.1 L (34.0-46.0) % MCV 79.5 L (80.0-100.0) fL MCH 24.5 L (25.0-35.0) pg MCHC 30.8 L (31.0-37.0) g/dL RDW 15.1 (11.5-15.5) % Plt Count 304 (150-450) k/uL MPV 8.3 Neutrophils % 68 % Lymphocytes % 17 % Monocytes % 7 % Eosinophils % 4 % Basophils % 1 % Neutrophils # 3.2 (1.3-7.7) k/uL Lymphocytes # 0.8 L (1.0-4.8) k/uL Monocytes # 0.4 (0-1.0) k/uL Eosinophils # 0.2 (0-0.7) k/uL Basophils # 0.0 (0-0.2) k/uL Hypochromasia Slight PT 10.1 (10.0-12.5) sec INR 0.9 (<1.2) APTT 24.4 (22.0-30.0) sec Sodium 140 (137-145) mmol/L Potassium 4.6 (3.5-5.1) mmol/L Chloride 109 H (98-107) mmol/L Carbon Dioxide 22 (22-30) mmol/L Anion Gap 9 mmol/L BUN 18 H (7-17) mg/dL Creatinine 0.94 (0.52-1.04) mg/dL Est GFR (CKD-EPI)AfAm 67 (>60 ml/min/1.73 sqM) Est GFR (CKD-EPI)NonAf 58 (>60 ml/min/1.73 sqM) Glucose 77 (74-99) mg/dL Plasma Lactic Acid [place] (0.7-2.0) mmol/L Calcium 9.8 (8.4-10.2) mg/dL Total Bilirubin 0.9 (0.2-1.3) mg/dL AST 44 H (14-36) U/L ALT 47 H (4-34) U/L Alkaline Phosphatase 249 H (38-126) U/L Troponin I (0.000-0.034) ng/mL NT-Pro-B Natriuret Pep 1330 pg/mL Total Protein 7.0 (6.3-8.2) g/dL Albumin 3.6 (3.5-5.0) g/dL Lipase 136 (23-300) U/L Urine Color Urine Appearance (Clear) Urine pH (5.0-8.0) Ur Specific [place] (1.001-1.035) Urine Protein (Negative) Urine Glucose (UA) (Negative) Urine Ketones (Negative) Urine Blood (Negative) Urine Nitrite (Negative) Urine Bilirubin (Negative) Urine Urobilinogen (<2.0) mg/dL Ur Leukocyte Esterase (Negative) Urine RBC (0-5) /hpf Urine WBC (0-5) /hpf Urine Bacteria (None) /hpf Hyaline Casts (0-2) /lpf 02/11/24 02/11/24 02/11/24 Range/Units 16:08 16:08 18:22 WBC (3.8-10.6) k/uL RBC (3.80-5.40) m/uL Hgb (11.4-16.0) gm/dL Hct (34.0-46.0) % MCV (80.0-100.0) fL MCH (25.0-35.0) pg MCHC (31.0-37.0) g/dL RDW (11.5-15.5) % Plt Count (150-450) k/uL MPV Neutrophils % % Lymphocytes % % Monocytes % % Eosinophils % % Basophils % % Neutrophils # (1.3-7.7) k/uL Lymphocytes # (1.0-4.8) k/uL Monocytes # (0-1.0) k/uL Eosinophils # (0-0.7) k/uL Basophils # (0-0.2) k/uL Hypochromasia PT (10.0-12.5) sec INR (<1.2) APTT (22.0-30.0) sec Sodium (137-145) mmol/L Potassium (3.5-5.1) mmol/L Chloride (98-107) mmol/L Carbon Dioxide (22-30) mmol/L Anion Gap mmol/L BUN (7-17) mg/dL Creatinine (0.52-1.04) mg/dL Est GFR (CKD-EPI)AfAm (>60 ml/min/1.73 sqM) Est GFR (CKD-EPI)NonAf (>60 ml/min/1.73 sqM) Glucose (74-99) mg/dL Plasma Lactic Acid [place] 1.1 (0.7-2.0) mmol/L Calcium (8.4-10.2) mg/dL Total Bilirubin (0.2-1.3) mg/dL AST (14-36) U/L ALT (4-34) U/L Alkaline Phosphatase (38-126) U/L Troponin I <0.012 (0.000-0.034) ng/mL NT-Pro-B Natriuret Pep pg/mL Total Protein (6.3-8.2) g/dL Albumin (3.5-5.0) g/dL Lipase (23-300) U/L Urine Color Colorless Urine Appearance Clear (Clear) Urine pH 6.0 (5.0-8.0) Ur Specific [place] 1.013 (1.001-1.035) Urine Protein Negative (Negative) Urine Glucose (UA) Negative (Negative) Urine Ketones 1+ H (Negative) Urine Blood Negative (Negative) Urine Nitrite Negative (Negative) Urine Bilirubin Negative (Negative) Urine Urobilinogen <2.0 (<2.0) mg/dL Ur Leukocyte Esterase Small H (Negative) Urine RBC 3 (0-5) /hpf Urine WBC 33 H (0-5) /hpf Urine Bacteria Rare H (None) /hpf Hyaline Casts 1 (0-2) /lpf Disposition Clinical Impression: Abdominal pain Disposition: HOME SELF-CARE Condition: Good Instructions (If sedation given, give patient instructions): Abdominal Pain (ED) Prescriptions: traMADol HCL 50 mg PO Q6H 3 Days #12 tab Is patient prescribed a controlled substance at d/c from ED?: No Referrals: Nita Rice MD [Primary Care Provider] - 1-2 days Kendall Dumont MD [STAFF PHYSICIAN] - 1-2 days Roselyn Zavala MD [STAFF PHYSICIAN] - 1-2 days Anupam Mckinley MD [STAFF PHYSICIAN] - 1-2 days Time of Disposition: 18:44
[2024-02-11 16:43] LABS: INR 0.9 (<1.2); Partial Thromboplastin Time 24.4 sec (22.0-30.0); Prothrombin Time 10.1 sec (10.0-12.5)
[2024-02-11 16:56] LABS: ALT 47 U/L (4-34); AST 44 U/L (14-36); African American GFR (CKD) 67 (>60 ml/min/1.73 sqM); Albumin 3.6 g/dL (3.5-5.0); Alkaline Phosphatase 249 U/L (38-126); Anion Gap 9 mmol/L; Blood Urea Nitrogen 18 mg/dL (7-17); Calcium 9.8 mg/dL (8.4-10.2); Carbon Dioxide 22 mmol/L (22-30); Chloride 109 mmol/L (98-107); Glucose 77 mg/dL (74-99); Lipase 136 U/L (23-300); Non-African American GFR(CKD) 58 (>60 ml/min/1.73 sqM); Sodium 140 mmol/L (137-145); Total Bilirubin 0.9 mg/dL (0.2-1.3)
[2024-02-11 16:58] LABS: Basophils % (A) 1 %; Eosinophils # (A) 0.2 k/uL (0-0.7); Eosinophils % (A) 4 %; HCT 33.1 % (34.0-46.0); HGB 10.2 gm/dL (11.4-16.0); Hypochromasia Slight; Lymphocytes # (A) 0.8 k/uL (1.0-4.8); Lymphocytes % (A) 17 %; MCH 24.5 pg (25.0-35.0); MCHC 30.8 g/dL (31.0-37.0); MCV 79.5 fL (80.0-100.0); Mean Platelet Volume 8.3; Monocytes # (A) 0.4 k/uL (0-1.0); Monocytes % (A) 7 %; Neutrophils # (A) 3.2 k/uL (1.3-7.7); Neutrophils % (A) 68 %; Platelet Count 304 k/uL (150-450); Potassium 4.6 mmol/L (3.5-5.1); RBC 4.17 m/uL (3.80-5.40); RDW 15.1 % (11.5-15.5); WBC 4.7 k/uL (3.8-10.6)
[2024-02-11 17:02] LABS: NT-Pro-B-Type Natriuretic Pept 1330 pg/mL
--- NOTE | 2024-02-11 17:03 | XR ---
EXAMINATION TYPE: XR chest 2V DATE OF EXAM: 02/11/2024 COMPARISON: 04/26/2023 HISTORY: Abdominal pain and shortness of breath TECHNIQUE: Frontal and lateral views of the chest are obtained. FINDINGS: There is a moderate stable hiatal hernia. There is a 2-lead cardiac pacemaker. The heart and pulmonary vasculature are normal. The lungs are clear. There is no pleural effusion or pneumothorax. The osseous structures are osteopenic. IMPRESSION: 1. No acute cardiopulmonary disease. 2. Stable moderate hiatal hernia
--- NOTE | 2024-02-11 17:55 | CT ---
EXAMINATION TYPE: CT abdomen pelvis w con DATE OF EXAM: 02/11/2024 COMPARISON: 09/06/2022 HISTORY: Abdominal pain, weakness, nausea. Lower extremity edema. CT DLP: 1021.3 mGycm Automated exposure control for dose reduction was used. TECHNIQUE: Helical acquisition of images was performed from the lung bases through the pelvis. CONTRAST: Performed without Oral Contrast and with IV Contrast, patient injected with 80 ml mL of Isovue 300. FINDINGS: The lung bases are clear. There is a large hiatal hernia. The gallbladder is normal without distention, wall thickening, pericholecystic fluid or gallstones. T here is no biliary ductal dilatation. There is no focal mass or organomegaly involving the liver, pancreas or spleen. There is a stable 2.3 cm left adrenal mass. There is marked right renal atrophy. The left kidney is unremarkable without solid mass, calculus or hydronephrosis. The caliber of the abdominal aorta is normal and there is no retroperitoneal adenopathy. The bowel loops are normal in caliber without dilatation or obstruction. There is an ileal conduit an d surgical absence of the urinary bladder. There is no bowel obstruction. There is no free intraperitoneal air or fluid. There is no pelvic mass or adenopathy. There is a left hip prosthesis.. There is marked deformity and severe degeneration of the right. No f ocal aggressive osseous lesions are seen. IMPRESSION: 1. No acute changes within the abdomen and pelvis. No interval change compared to previous. 2. Large hiatal hernia. 3. Cystectomy with ileoconduit. 4. 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 5. Marked right renal atrophy
[2024-02-11 18:37] LABS: Appearance,Urine Clear (Clear); Bacteria,Urine Rare /hpf; Bilirubin,Urine Negative (Negative); Blood,Urine Negative (Negative); Color,Urine Colorless; Glucose,Urine (UA) Negative (Negative); Hyaline Casts,Urine 1 /lpf (0-2); Ketones,Urine 1+ (Negative); Leukocyte Esterase,Urine Small (Negative); Nitrite,Urine Negative (Negative); Protein,Urine Negative (Negative); RBC,Urine 3 /hpf (0-5); Specific Gravity,Urine 1.013 (1.001-1.035); Urobilinogen,Urine <2.0 mg/dL (<2.0); WBC,Urine 33 /hpf (0-5)
[2024-02-11] MEDS: FUROSEMIDE 10 MG/ML 4 ML VIAL IV STA (19:08)
[2024-02-11 19:12] VITALS: BP 126/72; PULSE 75; RESP 20
== END 2024-02-11 19:34 | disposition home or self-care (01) ==
LOC: EC 14:49
DX: R10.30 Lower abdominal pain, unspecified (principal); Z87.891 Personal history of nicotine dependence; Z88.5 Allergy status to narcotic agent; Z88.8 Allergy status to other drugs, medicaments and biological substances; Z95.0 Presence of cardiac pacemaker
CPT/HCPCS: 36415; 93005; 83880; 80053; 83605; 83690; 84484; 85025; 85610; 85730; 81001; 71046; 74177; 99285; 96374; J1940; Q9967

== ENCOUNTER 2024-09-08 09:20 | Emergency (ER) | payer MEDICARE, OTHER ==
--- NOTE | 2024-09-08 09:46 | ED ---
General Adult HPI - General Chief complaint: Shortness of Breath Stated complaint: SOB Time Seen by Provider: 09/08/24 09:24 Source: patient, RN notes reviewed Mode of arrival: EMS Limitations: no limitations - History of Present Illness Initial comments: Patient is a 78-year-old female who is main complaint is reported as difficulty breathing. On further discussion patient states her main complaint is actually abdominal discomfort that makes it difficult for her to take a deep breath. Patient states abdominal discomfort is mostly in the epigastrium. Onset was this morning. Patient denies any chest discomfort. Patient denies cough or fever. Patient unclear if she has history of similar symptoms previously. - Related Data Home Medications Medication Instructions Recorded Confirmed Omeprazole [PriLOSEC] 20 mg PO Q48H 02/05/15 09/08/24 Potassium Chloride [K-Tab ER] 10 meq PO HS 09/01/16 09/08/24 Furosemide [Lasix] 20 mg PO BID 06/02/20 09/08/24 Meclizine [Antivert] 25 mg PO TID PRN 04/27/23 09/08/24 Aspirin EC [Ecotrin] 325 mg PO DAILY 02/11/24 09/08/24 Cefuroxime [Ceftin] 250 mg PO DIRECTED 09/08/24 09/08/24 Gabapentin [Neurontin] 100 mg PO DAILY 09/08/24 09/08/24 Magnesium 250 mg PO DAILY 09/08/24 09/08/24 Propafenone HCl 300 mg PO DAILY 09/08/24 09/08/24 Previous Rx's Medication Instructions Recorded Metoprolol Tartrate [Lopressor] 25 mg PO BID #60 tab 12/21/16 Allergies Allergy/AdvReac Type Severity Reaction Status Date / Time ether Allergy Anaphylaxis Verified 09/08/24 11:10 formaldehyde Allergy Anaphylaxis Verified 09/08/24 11:10 tetanus and diphtheria Allergy Unknown Verified 09/08/24 11:10 toxoids [tetanus & diphtheria toxoids] codeine AdvReac Nausea Verified 09/08/24 11:10 Review of Systems ROS Statement: Those systems with pertinent positive or pertinent negative responses have been documented in the HPI. ROS Other: All systems not noted in ROS Statement are negative. Constitutional: Denies: fever Eyes: Denies: eye pain ENT: Denies: ear pain Respiratory: Reports: as per HPI Cardiovascular: Denies: chest pain Gastrointestinal: Reports: as per HPI, abdominal pain Musculoskeletal: Denies: back pain Past Medical History Past Medical History: Atrial Fibrillation, Cancer, GERD/Reflux, Hypertension, Osteoarthritis (OA) Additional Past Medical History / Comment(s): bladder cancer with urostomy, Small Bowel Obstruction, vertigo History of Any Multi-Drug Resistant Organisms: None Reported Date of last positivie culture/infection: 04/29/23 MDRO Source:: Urine Past Surgical History: Ablation, Bladder Surgery, Heart Catheterization, Hernia Repair, Hysterectomy, Orthopedic Surgery, Pacemaker, Tonsillectomy Additional Past Surgical History / Comment(s): LEFT HIP SURGERY x 5, GRAFTS AND MARNIE 2015, ablasion CARDIOVERSION, urostomy 10/2010, cataracts 2017 Past Anesthesia/Blood Transfusion Reactions: Previous Problems w/ Anesthesia Additional Past Anesthesia/Blood Transfusion Reaction / Comment(s): asthma attack Type of Cardiac Device: Permanent Pacemaker Device Placement Date:: 2012 Past Psychological History: Anxiety Smoking Status: Former smoker Past Alcohol Use History: Occasional Past Drug Use History: None Reported - Past Family History Mother Family Medical History: Asthma, GERD/Reflux Additional Family Medical History / Comment(s): diverticulitus, glaucoma Father Family Medical History: Hyperlipidemia Additional Family Medical History / Comment(s): stroke, brain tumour General Exam Limitations: no limitations General appearance: alert, in no apparent distress Head exam: Present: normocephalic Eye exam: Present: normal appearance Neck exam: Present: normal inspection Respiratory exam: Present: normal lung sounds bilaterally. Absent: respiratory distress, wheezes, rales, rhonchi, decreased breath sounds, prolonged expiratory Cardiovascular Exam: Present: regular rate, normal rhythm, normal heart sounds Expanded Peripheral pulses: 2+: Dorsalis Pedis (R), Dorsalis Pedis (L) GI/Abdominal exam: Present: soft, tenderness (Moderate epigastric tenderness), normal bowel sounds, other (Ostomy bag is present). Absent: distended, guarding, rebound, rigid, pulsatile mass Extremities exam: Present: pedal edema. Absent: calf tenderness Neurological exam: Present: alert Psychiatric exam: Present: normal affect, normal mood Skin exam: Present: normal color Course Vital Signs 09/08/24 09/08/24 09/08/24 09:23 09:26 10:05 Temperature 98.4 F Pulse Rate 65 60 Respiratory 20 20 18 Rate Blood Pressure 160/72 143/69 O2 Sat by Pulse 95 99 Oximetry 09/08/24 11:09 Temperature Pulse Rate 69 Respiratory 18 Rate Blood Pressure 126/71 O2 Sat by Pulse 97 Oximetry EKG Findings - EKG Results: EKG: interpreted by ERMD, sinus rhythm, normal axis, normal QRS, normal ST/T Medical Decision Making - Medical Decision Making Was pt. sent in by a medical professional or institution (, PA, PATIENT REGISTRATION MANAGER, urgent care, hospital, or snf...) When possible be specific @ -No Did you speak to anyone other than the patient for history (EMS, parent, family, police, friend...)? What history was obtained from this source @ -No Did you review nursing and triage notes (agree or disagree)? Why? @ -I reviewed and agree with nursing and triage notes Were old charts reviewed (outside hosp., previous admission, EMS record, old EKG, old radiological studies, urgent care reports/EKG's, snf records)? Report findings @ -No old charts were reviewed Differential Diagnosis (chest pain, altered mental status, abdominal pain women, abdominal pain men, vaginal bleeding, weakness, fever, dyspnea, syncope, headache, dizziness, GI bleed, back pain, seizure, CVA, palpatations, mental health, musculoskeletal)? @ -Differential Abdominal Pain Women: Appendicitis, Cholecystitis, diverticulosis, ischemic bowel, pancreatitis, hepatitis, UTI, gastroenteritis, AAA, incarcerated hernia, bowel obstruction, constipation, inflammatory bowel, hepatitis, peptic ulcer disease, splenic infarction, perforated viscus, vulvitis, ovarian torsion, PID, kidney stone, placenta abruption, this is not meant to be an all-inclusive list EKG interpreted by me (3pts min.). @ -As above X-rays interpreted by me (1pt min.). @ -None done CT interpreted by me (1pt min.). @ -CT scan chest shows some mild increase fluid. CT scan abdomen pelvis without acute abnormality. Hiatal hernia. U/S interpreted by me (1pt. min.). @ -None done What testing was considered but not performed or refused? (CT, X-rays, U/S, labs)? Why? @ -None What meds were considered but not given or refused? Why? @ -None Did you discuss the management of the patient with other professionals (professionals i.e. , PA, PATIENT REGISTRATION MANAGER, lab, RT, psych nurse, social services director, lawyer real estate, teacher, naval gunfire liaison officer, case advocate)? Give summary @ -No Was smoking cessation discussed for >3mins.? @ -No Was critical care preformed (if so, how long)? @ -No Were there social determinants of health that impacted care today? How? (Homelessness, low income, unemployed, alcoholism, drug addiction, transportation, low edu. Level, literacy, decrease access to med. care, skilled nursing, rehab)? @ -No Was there de-escalation of care discussed even if they declined (Discuss DNR or withdrawal of care, Hospice)? DNR status @ -No What co-morbidities impacted this encounter? (DM, HTN, Smoking, COPD, CAD, Cancer, CVA, ARF, Chemo, Hep., AIDS, mental health diagnosis, sleep apnea, morbid obesity)? @ -Patient states she does have history of hiatal hernia with problems previously. Was patient admitted / discharged? Hospital course, mention meds given and route, prescriptions, significant lab abnormalities, going to OR and other pertinent info. @ -Patient reevaluated and resting comfortably in bed. Patient states she feels much better and does request discharge home. Patient is updated on results and plan. Patient is receptive to a dose of Lasix prior to discharge Undiagnosed new problem with uncertain prognosis? @ -No Drug Therapy requiring intensive monitoring for toxicity (Heparin, Nitro, Insulin, Cardizem)? @ -No Were any procedures done? @ -No Diagnosis/symptom? @ -Abdominal pain, CHF Acute, or Chronic, or Acute on Chronic? @ -Acute, acute Uncomplicated (without systemic symptoms) or Complicated (systemic symptoms)? @ -Default Side effects of treatment? @ -No Exacerbation, Progression, or Severe Exacerbation? @ -No Poses a threat to life or bodily function? How? (Chest pain, USA, MS, pneumonia, PE, COPD, DKA, ARF, appy, cholecystitis, CVA, Diverticulitis, Homicidal, Suicidal, threat to staff... and all critical care pts) @ -No - Lab Data Result diagrams: 09/08/24 09:45 09/08/24 09:45 Lab Results 09/08/24 09/08/24 09/08/24 Range/Units 09:45 09:45 09:45 WBC 8.2 (3.8-10.6) k/uL RBC 3.92 (3.80-5.40) m/uL Hgb 10.1 L (11.4-16.0) gm/dL Hct 32.1 L (34.0-46.0) % MCV 82.0 (80.0-100.0) fL MCH 25.6 (25.0-35.0) pg MCHC 31.3 (31.0-37.0) g/dL RDW 15.1 (11.5-15.5) % Plt Count 234 (150-450) k/uL MPV 8.1 Neutrophils % 76 % Lymphocytes % 8 % Monocytes % 6 % Eosinophils % 5 % Basophils % 0 % Neutrophils # 6.3 (1.3-7.7) k/uL Lymphocytes # 0.7 L (1.0-4.8) k/uL Monocytes # 0.5 (0-1.0) k/uL Eosinophils # 0.4 (0-0.7) k/uL Basophils # 0.0 (0-0.2) k/uL Hypochromasia Moderate PT 9.9 L (10.0-12.5) sec INR 0.9 (<1.2) APTT 22.7 (22.0-30.0) sec D-Dimer 2.02 H (<0.60) mg/L FEU Sodium 137 (137-145) mmol/L Potassium 4.6 (3.5-5.1) mmol/L Chloride 106 (98-107) mmol/L Carbon Dioxide 27 (22-30) mmol/L Anion Gap 4 mmol/L BUN 26 H (7-17) mg/dL Creatinine 0.81 (0.52-1.04) mg/dL Est GFR (CKD-EPI)AfAm 80 (>60 ml/min/1.73 sqM) Est GFR (CKD-EPI)NonAf 70 (>60 ml/min/1.73 sqM) Glucose 98 (74-99) mg/dL Calcium 9.6 (8.4-10.2) mg/dL Magnesium 2.3 (1.6-2.3) mg/dL Total Bilirubin 0.4 (0.2-1.3) mg/dL AST 32 (14-36) U/L ALT 26 (4-34) U/L Alkaline Phosphatase 125 (38-126) U/L Troponin I (0.000-0.034) ng/mL NT-Pro-B Natriuret Pep 478 pg/mL Total Protein 6.4 (6.3-8.2) g/dL Albumin 3.5 (3.5-5.0) g/dL Amylase 55 (30-110) U/L Lipase 123 (23-300) U/L 09/08/24 Range/Units 09:45 WBC (3.8-10.6) k/uL RBC (3.80-5.40) m/uL Hgb (11.4-16.0) gm/dL Hct (34.0-46.0) % MCV (80.0-100.0) fL MCH (25.0-35.0) pg MCHC (31.0-37.0) g/dL RDW (11.5-15.5) % Plt Count (150-450) k/uL MPV Neutrophils % % Lymphocytes % % Monocytes % % Eosinophils % % Basophils % % Neutrophils # (1.3-7.7) k/uL Lymphocytes # (1.0-4.8) k/uL Monocytes # (0-1.0) k/uL Eosinophils # (0-0.7) k/uL Basophils # (0-0.2) k/uL Hypochromasia PT (10.0-12.5) sec INR (<1.2) APTT (22.0-30.0) sec D-Dimer (<0.60) mg/L FEU Sodium (137-145) mmol/L Potassium (3.5-5.1) mmol/L Chloride (98-107) mmol/L Carbon Dioxide (22-30) mmol/L Anion Gap mmol/L BUN (7-17) mg/dL Creatinine (0.52-1.04) mg/dL Est GFR (CKD-EPI)AfAm (>60 ml/min/1.73 sqM) Est GFR (CKD-EPI)NonAf (>60 ml/min/1.73 sqM) Glucose (74-99) mg/dL Calcium (8.4-10.2) mg/dL Magnesium (1.6-2.3) mg/dL Total Bilirubin (0.2-1.3) mg/dL AST (14-36) U/L ALT (4-34) U/L Alkaline Phosphatase (38-126) U/L Troponin I <0.012 (0.000-0.034) ng/mL NT-Pro-B Natriuret Pep pg/mL Total Protein (6.3-8.2) g/dL Albumin (3.5-5.0) g/dL Amylase (30-110) U/L Lipase (23-300) U/L Disposition Clinical Impression: Congestive heart failure, Abdominal pain Disposition: HOME SELF-CARE Condition: Stable Additional Instructions: Please do follow-up with your primary care physician beginning of the week. Resume your previous medications. Return for increased pain, difficulty breathing, fevers, worsening or changing symptoms or any other concerns. Is patient prescribed a controlled substance at d/c from ED?: No Referrals: Alberto Koenig DO [Primary Care Provider] - 1-2 days Time of Disposition: 12:29
[2024-09-08 10:02] LABS: Basophils % (A) 0 %; Eosinophils # (A) 0.4 k/uL (0-0.7); Eosinophils % (A) 5 %; HCT 32.1 % (34.0-46.0); HGB 10.1 gm/dL (11.4-16.0); Hypochromasia Moderate; Lymphocytes # (A) 0.7 k/uL (1.0-4.8); Lymphocytes % (A) 8 %; MCH 25.6 pg (25.0-35.0); MCHC 31.3 g/dL (31.0-37.0); Mean Platelet Volume 8.1; Monocytes # (A) 0.5 k/uL (0-1.0); Monocytes % (A) 6 %; Neutrophils # (A) 6.3 k/uL (1.3-7.7); Neutrophils % (A) 76 %; Platelet Count 234 k/uL (150-450); RBC 3.92 m/uL (3.80-5.40); RDW 15.1 % (11.5-15.5); WBC 8.2 k/uL (3.8-10.6)
[2024-09-08] MEDS: FAMOTIDINE 20 MG/2 ML VIAL IV STA (10:07)
[2024-09-08] MEDS: MORPHINE SULFATE 4 MG/ML SYRINGE IVP STA (10:08)
[2024-09-08 10:14] LABS: INR 0.9 (<1.2); Partial Thromboplastin Time 22.7 sec (22.0-30.0); Prothrombin Time 9.9 sec (10.0-12.5)
[2024-09-08 10:16] LABS: ALT 26 U/L (4-34); AST 32 U/L (14-36); African American GFR (CKD) 80 (>60 ml/min/1.73 sqM); Albumin 3.5 g/dL (3.5-5.0); Alkaline Phosphatase 125 U/L (38-126); Amylase 55 U/L (30-110); Anion Gap 4 mmol/L; Blood Urea Nitrogen 26 mg/dL (7-17); Calcium 9.6 mg/dL (8.4-10.2); Carbon Dioxide 27 mmol/L (22-30); Chloride 106 mmol/L (98-107); Glucose 98 mg/dL (74-99); Lipase 123 U/L (23-300); Magnesium 2.3 mg/dL (1.6-2.3); Non-African American GFR(CKD) 70 (>60 ml/min/1.73 sqM); Potassium 4.6 mmol/L (3.5-5.1); Sodium 137 mmol/L (137-145); Total Bilirubin 0.4 mg/dL (0.2-1.3); Total Protein 6.4 g/dL (6.3-8.2)
[2024-09-08 10:21] LABS: NT-Pro-B-Type Natriuretic Pept 478 pg/mL
[2024-09-08 10:22] VITALS: RESP 18
[2024-09-08] MEDS: HYDROmorphone 0.5 MG/0.5 ML SYRINGE IVP STA (11:50)
--- NOTE | 2024-09-08 11:59 | CT ---
EXAMINATION TYPE: CT angio chest DATE OF EXAM: 09/08/2024 11:11 AM COMPARISON: Multiple CTs of the chest with most recent on 10/15/2019 CLINICAL INDICATION: Female, 78 years old with history of juana; [place], Abdominal pain TECHNIQUE/CONTRAST: CTA scan of the thorax is performed without and with IV Contrast, patient injected with 100 ml mL of Isovue 370, MIP images are created and reviewed these are created on a separate workstation.. CT DLP: 1119.1 mGycm, Automated exposure control for dose reduction was used. FINDINGS: Lungs/Pleura: No evidence of focal consolidation or pneumothorax. 7 mm right upper lung nodule. Previ ously measuring up to 4 mm. And centrilobular septal thickening noted. Trace bilateral pleural effusi ons. Right lower lobe superior segment side granuloma. Airway: Large airways are patent. Heart: The heart is mildly enlarged for size. Cardiac conduction leads terminating in the right ventr icle and right atrium Vasculature: There is no evidence for a filling defect within the pulmonary vasculature to suggest ac native pulmonary embolism. The pulmonary artery is of normal size. Mediastinum: No gross evidence of adenopathy. Large hiatal hernia. Musculoskeletal: No acute osseous abnormalities Soft Tissues/lymph nodes: Unremarkable. Lower neck: No significant findings. Upper Abdomen: see abdominal CT same day report. IMPRESSION: 1. No evidence of pulmonary embolism. 2. Mild cardiomegaly with trace bilateral pleural effusions and pulmonary vasculature congestion vaishali elate with serum BNP for congestive heart failure 3. Right upper lung 7 mm pulmonary nodule. This may be fractionally larger than 10/15/2019 where it yamileth sured 4 mm. 4. Large hiatal hernia. [facility], , 09/08/2024 11:57 AM
--- NOTE | 2024-09-08 12:05 | CT ---
EXAMINATION TYPE: CT abdomen pelvis w con DATE OF EXAM: 09/08/2024 11:12 AM COMPARISON: CT abdomen pelvis most recent from 02/11/2024 09/06/2022 CLINICAL INDICATION: Female, 78 years old with history of abdominal pain; Abdominal pain with SLADE TECHNIQUE: Axial CT abdomen pelvis w con;Sagittal and coronal reformats were created on a separate w orkstation. Contrast used:100 ml mL of Isovue 370 with IV Contrast, (none if empty) Oral contrast used: without Oral Contrast (none if empty) CT DLP: 1119.1 mGycm, Automated exposure control for dose reduction was used. FINDINGS: LOWER CHEST: Large abdominal hernia visualized. Trace bilateral pleural effusions and cardiomegaly. P ulmonary vascular congestion. ABDOMEN LIVER: Unremarkable GALLBLADDER AND BILE DUCTS: Unremarkable. PANCREAS: Unremarkable. SPLEEN: Splenule is present. ADRENAL GLANDS: Left adrenal 22 mm nodule. KIDNEYS AND URETERS: Atrophic right kidney. Mild dilation of the collecting system similar prior. No obstructive calculus visualized PELVIS BLADDER: Urinary bladder is surgically absent with loop ileostomy changes. REPRODUCTIVE: Uterus is surgically absent. ABDOMEN & PELVIS STOMACH AND BOWEL: No evidence of bowel obstruction. Right lower quadrant ostomy present. Postsurgica l changes to the bowel. PERITONEUM/RETROPERITONEUM: No evidence of pneumoperitoneum or free fluid. VASCULATURE: No evidence of aortic aneurysm. MUSCULOSKELETAL: No acute osseous abnormalities. Moderate disc degeneration changes are present throu ghout the thoracolumbar spine., left hip arthroplasty appears intact. Severe right hip osteoarthrosis /post traumatic bony changes. The right hip is superiorly subluxed chronically. LYMPH NODES: No gross evidence for lymphadenopathy. SOFT TISSUE/ABDOMINAL WALL: Unremarkable IMPRESSION: 1. Streak artifact limits evaluation of the pelvis. 2. Postsurgical changes similar to prior with suspected loop ileostomy. No lymphadenopathy within th e visualized. The surgical bed of the urinary bladder is limited in evaluation due to streak artifact . 3. Stable left adrenal nodule. 4. Atrophic right kidney. 5. Large hiatal hernia. 6. Cardiomegaly with pulmonary vascular congestion and trace bilateral pleural effusions correlate f or congestive heart failure. 7. Severe right hip osteoarthrosis with superior subluxation. [facility], , 09/08/2024 12:02 PM
[2024-09-08 12:42] VITALS: BP 122/62; PULSE 62; TEMP 98.6
[2024-09-08] MEDS: FUROSEMIDE 10 MG/ML 4 ML VIAL IV STA (12:43)
== END 2024-09-08 12:46 | disposition home or self-care (01) ==
LOC: EC 09:20
DX: I50.9 Heart failure, unspecified (principal); K44.9 Diaphragmatic hernia without obstruction or gangrene; Z88.5 Allergy status to narcotic agent; Z88.8 Allergy status to other drugs, medicaments and biological substances; Z79.82 Long term (current) use of aspirin; Z79.899 Other long term (current) drug therapy; Z87.891 Personal history of nicotine dependence
CPT/HCPCS: 36415; 93005; 85379; 83880; 80053; 82150; 83690; 83735; 84484; 85025; 85610; 85730; 71275; 74177; 99285; 96374; 96375 ×3; J2270; J1940; J3490; J1171; Q9967

== ENCOUNTER 2024-09-13 06:08 | Emergency (ER) | payer MEDICARE, OTHER ==
[2024-09-13 06:27] VITALS: RESP 16
--- NOTE | 2024-09-13 06:40 | ED ---
Abdominal Pain HPI - General Chief Complaint: Abdominal Pain Stated Complaint: Abdominal Pain Time Seen by Provider: 09/13/24 06:39 Source: patient, EMS, RN notes reviewed, old records reviewed Mode of arrival: EMS Limitations: no limitations - History of Present Illness Initial Comments: 78-year-old female presented to the ER with a chief complaint of abdominal pain. Patient reports a history of bladder cancer and has a urostomy. She also reports a history of partial small bowel obstructions that self reduced. Patient reports urostomy was created with the resected portion of small bowel. This was completed at [facility] in [place]. Around 2:30 AM she started to experience a cramping abdominal discomfort. She had a bowel movement at that time that was "normal". She admits to nausea and vomiting for which she received Zofran by EMS and has since resolved. She has not taken anything for pain at this time. She also admits to chills but denies any known fevers. Patient was seen here on 09-08-2024 for shortness of breath and discharged home after IV lasix. She was also started on ceftin for UTI. She is still currently taking antibiotic. Patient does admit to peripheral edema and states this been going on for "a while" and she is following up outpatient with PCP and is scheduled for imaging on 09-20-2024. She denies any shortness of breath, chest pain, exertional dyspnea or orthopnea. No other complaints. - Related Data Home Medications Medication Instructions Recorded Confirmed Omeprazole [PriLOSEC] 20 mg PO Q48H 02/05/15 09/13/24 Potassium Chloride [K-Tab ER] 10 meq PO HS 09/01/16 09/13/24 Furosemide [Lasix] 20 mg PO BID 06/02/20 09/13/24 Meclizine [Antivert] 25 mg PO TID PRN 04/27/23 09/13/24 Aspirin EC [Ecotrin] 325 mg PO DAILY 02/11/24 09/13/24 Gabapentin [Neurontin] 100 mg PO DAILY 09/08/24 09/13/24 Magnesium 250 mg PO DAILY 09/08/24 09/13/24 Propafenone HCl 300 mg PO BID 09/08/24 09/13/24 Melatonin 5 mg PO HS PRN 09/13/24 09/13/24 Nitrofurantoin Monohyd/M-Cryst 100 mg PO BID 09/13/24 09/13/24 [Macrobid] Previous Rx's Medication Instructions Recorded Metoprolol Tartrate [Lopressor] 25 mg PO BID #60 tab 12/21/16 Allergies Allergy/AdvReac Type Severity Reaction Status Date / Time ether Allergy Anaphylaxis Verified 09/13/24 10:08 formaldehyde Allergy Anaphylaxis Verified 09/13/24 10:08 tetanus and diphtheria Allergy Unknown Verified 09/13/24 10:08 toxoids [tetanus & diphtheria toxoids] codeine AdvReac Nausea Verified 09/13/24 10:08 Review of Systems ROS Statement: Those systems with pertinent positive or pertinent negative responses have been documented in the HPI. ROS Other: All systems not noted in ROS Statement are negative. Past Medical History Past Medical History: Atrial Fibrillation, Cancer, GERD/Reflux, Hypertension, Osteoarthritis (OA) Additional Past Medical History / Comment(s): bladder cancer with urostomy, Small Bowel Obstruction, vertigo History of Any Multi-Drug Resistant Organisms: None Reported Date of last positivie culture/infection: 04/29/23 MDRO Source:: Urine Past Surgical History: Ablation, Bladder Surgery, Heart Catheterization, Hernia Repair, Hysterectomy, Orthopedic Surgery, Pacemaker, Tonsillectomy Additional Past Surgical History / Comment(s): LEFT HIP SURGERY x 5, GRAFTS AND MARNIE 2015, ablasion CARDIOVERSION, urostomy 10/2010, cataracts 2017 Past Anesthesia/Blood Transfusion Reactions: Previous Problems w/ Anesthesia Additional Past Anesthesia/Blood Transfusion Reaction / Comment(s): asthma attack Type of Cardiac Device: Permanent Pacemaker Device Placement Date:: 2012 Past Psychological History: Anxiety Smoking Status: Former smoker Past Alcohol Use History: Occasional Past Drug Use History: None Reported - Past Family History Mother Family Medical History: Asthma, GERD/Reflux Additional Family Medical History / Comment(s): diverticulitus, glaucoma Father Family Medical History: Hyperlipidemia Additional Family Medical History / Comment(s): stroke, brain tumour General Exam Limitations: no limitations General appearance: alert, in no apparent distress Respiratory exam: Present: normal lung sounds bilaterally. Absent: respiratory distress, wheezes, rales, rhonchi, stridor Cardiovascular Exam: Present: regular rate, normal rhythm, normal heart sounds. Absent: systolic murmur, diastolic murmur, rubs, gallop, clicks GI/Abdominal exam: Present: soft, tenderness (Generalized), hyperactive bowel sounds, other (Urostomy in place right side) Extremities exam: Present: other (edematous with no pitting edema) Neurological exam: Present: alert, oriented X3, CN II-XII intact Skin exam: Present: warm, dry, intact, normal color. Absent: rash Course Vital Signs 09/13/24 09/13/24 09/13/24 06:24 07:33 10:26 Temperature 98.5 F 97.8 F 98.1 F Pulse Rate 68 66 63 Respiratory 16 16 16 Rate Blood Pressure 120/72 139/76 118/70 O2 Sat by Pulse 96 95 95 Oximetry Medical Decision Making - Medical Decision Making Was pt. sent in by a medical professional or institution (, PA, DISTRIBUTION DRIVER, urgent care, hospital, or fpc...) When possible be specific @ -No Did you speak to anyone other than the patient for history (EMS, parent, family, police, friend...)? What history was obtained from this source @ -No Did you review nursing and triage notes (agree or disagree)? Why? @ -I reviewed and agree with nursing and triage notes Were old charts reviewed (outside hosp., previous admission, EMS record, old EKG, old radiological studies, urgent care reports/EKG's, fpc records)? Report findings @ -I reviewed ER visit from 09-08-2024 where patient was seen for shortness of breath and discharged after IV Lasix. Patient also diagnosed with UTI and started on Ceftin. Differential Diagnosis (chest pain, altered mental status, abdominal pain women, abdominal pain men, vaginal bleeding, weakness, fever, dyspnea, syncope, heada haris, dizziness, GI bleed, back pain, seizure, CVA, palpatations, mental health, musculoskeletal)? @ -Differential Abdominal Pain Women: Appendicitis, Cholecystitis, diverticulosis, ischemic bowel, pancreatitis, hepatitis, UTI, gastroenteritis, AAA, incarcerated hernia, bowel obstruction, constipation, inflammatory bowel, hepatitis, peptic ulcer disease, splenic infarction, perforated viscus, vul vitis, ovarian torsion, PID, kidney stone, placenta abruption, this is not meant to be an all-inclusive list EKG interpreted by me (3pts min.). @ -None done X-rays interpreted by me (1pt min.). @ -None done CT interpreted by me (1pt min.). @ -CT abdomen pelvis showing postsurgical changes to the small bowel. Increased dilation compared to 08-31-2024 to the small bowel. No transition point identified. U/S interpreted by me (1pt. min.). @ -None done What testing was considered but not performed or refused? (CT, X-rays, U/S, labs)? Why? @ -None What meds were considered but not given or refused? Why? @ -None Did you discuss the management of the patient with other professionals (viji baumann i.eJohnny Ansari, PA, DISTRIBUTION DRIVER, lab, RT, psych nurse, social service worker, sheet metal duct worker supervisor, teacher, program officer, casey saw operator)? Give summary @ -No Was smoking cessation discussed for >3mins.? @ -No Was critical care preformed (if so, how long)? @ -No Were there social determinants of health that impacted care today? How? (Homelessness, low income, unemployed, alcoholism, drug addiction, transportation, low edu. Level, literacy, decrease access to med. care, fci, rehab)? @ -No Was there de-escalation of care discussed even if they declined (Discuss DNR or withdrawal of care, Hospice)? DNR status @ -No What co-morbidities impacted this encounter? (DM, HTN, Smoking, COPD, CAD, Cancer, CVA, ARF, Chemo, Hep., AIDS, mental health diagnosis, sleep apnea, morbid obesity)? @ -Urostomy connected by resected small bowel. Was patient admitted / discharged? Hospital course, mention meds given and route, prescriptions, significant lab abnormalities, going to OR and other pertinent info. @ -Discharge. 78-year-old female presented the ER with a chief complaint of abdominal cramping with nausea and vomiting. History and physical exam completed. Vital stable. Patient in no signs of acute distress nontoxic- appearing. Exam remarkable for a soft nondistended abdomen with generalized tenderness. No rebound or guarding. Given patient's history of bowel surgery laboratory studies and CT will be obtained. CBC showing leukocytosis of 11.1 with a left shift which is likely related to patient's nausea and vomiting. Hemoglobin stable at 10.4 compared to prior. CMP showing signs of dehydration with a BUN of 21, potassium of 5.2 an lactic acid of 2.2 for which patient received IV fluids. Urinalysis with small leukocyte esterases and 10 WBCs. Patient is still currently taking Ceftin for UTI diagnosed at last ER visit. CT abdomen pelvis showing dilation of the small bowel at anastomotic site. There is no transition point. Patient will be treated with magnesium citrate as dilation and discomfort believed to be due from constipation. Patient is stable for discharge at this time. Extremely strict return parameters were discussed and I advised her to follow-up closely with PCP in the next 1 to 2 days. Patient discharged in stable condition with follow-up to PCP. Patient verbally expressed understanding and agreement with care plan. Case discussed with ED attending, Dr. Spring. Undiagnosed new problem with uncertain prognosis? @ -No Drug Therapy requiring intensive monitoring for toxicity (Heparin, Nitro, Insulin, Cardizem)? @ -No Were any procedures done? @ -No Diagnosis/symptom? @ -Small bowel anastomotic dilation Acute, or Chronic, or Acute on Chronic? @ -Acute Uncomplicated (without systemic symptoms) or Complicated (systemic symptoms)? @ -Uncomplicated Side effects of treatment? @ -No Exacerbation, Progression, or Severe Exacerbation? @ -No Poses a threat to life or bodily function? How? (Chest pain, [place], [place], pneumonia, PE, COPD, DKA, ARF, appy, cholecystitis, CVA, Diverticulitis, Homicidal, Suicidal, threat to staff... and all critical care pts) @ -No - Lab Data Result diagrams: 09/13/24 06:42 09/13/24 06:42 Lab Results 09/13/24 09/13/24 09/13/24 Range/Units 06:42 06:42 06:42 WBC 11.1 H (3.8-10.6) k/uL RBC 4.11 (3.80-5.40) m/uL Hgb 10.4 L (11.4-16.0) gm/dL Hct 33.5 L (34.0-46.0) % MCV 81.4 (80.0-100.0) fL MCH 25.4 (25.0-35.0) pg MCHC 31.2 (31.0-37.0) g/dL RDW 14.8 (11.5-15.5) % Plt Count 320 (150-450) k/uL MPV 8.1 Neutrophils % 84 % Lymphocytes % 7 % Monocytes % 4 % Eosinophils % 3 % Basophils % 0 % Neutrophils # 9.4 H (1.3-7.7) k/uL Lymphocytes # 0.8 L (1.0-4.8) k/uL Monocytes # 0.5 (0-1.0) k/uL Eosinophils # 0.3 (0-0.7) k/uL Basophils # 0.0 (0-0.2) k/uL Hypochromasia Moderate Sodium 139 (137-145) mmol/L Potassium 5.2 H (3.5-5.1) mmol/L Chloride 106 (98-107) mmol/L Carbon Dioxide 25 (22-30) mmol/L Anion Gap 8 mmol/L BUN 21 H (7-17) mg/dL Creatinine 0.87 (0.52-1.04) mg/dL Est GFR (CKD-EPI)AfAm 73 (>60 ml/min/1.73 sqM) Est GFR (CKD-EPI)NonAf 64 (>60 ml/min/1.73 sqM) Glucose 124 H (74-99) mg/dL Lactic Ac Sepsis Rflx Plasma Lactic Acid Aidan (0.7-2.0) mmol/L Calcium 10.0 (8.4-10.2) mg/dL Total Bilirubin 0.3 (0.2-1.3) mg/dL AST 19 (14-36) U/L ALT 19 (4-34) U/L Alkaline Phosphatase 139 H (38-126) U/L Total Protein 6.6 (6.3-8.2) g/dL Albumin 3.6 (3.5-5.0) g/dL Amylase 65 (30-110) U/L Lipase 123 (23-300) U/L Urine Color Colorless Urine Appearance Clear (Clear) Urine pH 6.0 (5.0-8.0) Ur Specific [place] 1.011 (1.001-1.035) Urine Protein Negative (Negative) Urine Glucose (UA) Negative (Negative) Urine Ketones Negative (Negative) Urine Blood Negative (Negative) Urine Nitrite Negative (Negative) Urine Bilirubin Negative (Negative) Urine Urobilinogen <2.0 (<2.0) mg/dL Ur Leukocyte Esterase Small H (Negative) Urine RBC 2 (0-5) /hpf Urine WBC 10 H (0-5) /hpf Ur Squamous Epith Cells <1 (0-4) /hpf Urine Mucus Rare H (None) /hpf 09/13/24 09/13/24 Range/Units 06:42 07:32 WBC (3.8-10.6) k/uL RBC (3.80-5.40) m/uL Hgb (11.4-16.0) gm/dL Hct (34.0-46.0) % MCV (80.0-100.0) fL MCH (25.0-35.0) pg MCHC (31.0-37.0) g/dL RDW (11.5-15.5) % Plt Count (150-450) k/uL MPV Neutrophils % % Lymphocytes % % Monocytes % % Eosinophils % % Basophils % % Neutrophils # (1.3-7.7) k/uL Lymphocytes # (1.0-4.8) k/uL Monocytes # (0-1.0) k/uL Eosinophils # (0-0.7) k/uL Basophils # (0-0.2) k/uL Hypochromasia Sodium (137-145) mmol/L Potassium (3.5-5.1) mmol/L Chloride (98-107) mmol/L Carbon Dioxide (22-30) mmol/L Anion Gap mmol/L BUN (7-17) mg/dL Creatinine (0.52-1.04) mg/dL Est GFR (CKD-EPI)AfAm (>60 ml/min/1.73 sqM) Est GFR (CKD-EPI)NonAf (>60 ml/min/1.73 sqM) Glucose (74-99) mg/dL Lactic Ac Sepsis Rflx Y Plasma Lactic Acid Aidan 2.2 H* (0.7-2.0) mmol/L Calcium (8.4-10.2) mg/dL Total Bilirubin (0.2-1.3) mg/dL AST (14-36) U/L ALT (4-34) U/L Alkaline Phosphatase (38-126) U/L Total Protein (6.3-8.2) g/dL Albumin (3.5-5.0) g/dL Amylase (30-110) U/L Lipase (23-300) U/L Urine Color Urine Appearance (Clear) Urine pH (5.0-8.0) Ur Specific [place] (1.001-1.035) Urine Protein (Negative) Urine Glucose (UA) (Negative) Urine Ketones (Negative) Urine Blood (Negative) Urine Nitrite (Negative) Urine Bilirubin (Negative) Urine Urobilinogen (<2.0) mg/dL Ur Leukocyte Esterase (Negative) Urine RBC (0-5) /hpf Urine WBC (0-5) /hpf Ur Squamous Epith Cells (0-4) /hpf Urine Mucus (None) /hpf - Radiology Data Radiology results: report reviewed, image reviewed Disposition Clinical Impression: Small bowel anastomotic dilation Disposition: HOME SELF-CARE Condition: Stable Instructions (If sedation given, give patient instructions): Bowel Obstruction (ED) Additional Instructions: Follow-up with PCP. Return to the ER for any new or worsening concerns. Is patient prescribed a controlled substance at d/c from ED?: No Referrals: Alberto Koenig DO [Primary Care Provider] - 1-2 days Time of Disposition: 10:16
[2024-09-13] MEDS: SODIUM CHLORIDE 0.9% 1,000 ML IV STA (06:51)
[2024-09-13] MEDS: HYDROmorphone 0.5 MG/0.5 ML SYRINGE IVP STA ×2 (06:52→08:31)
[2024-09-13 07:16] LABS: Basophils % (A) 0 %; Eosinophils # (A) 0.3 k/uL (0-0.7); Eosinophils % (A) 3 %; HCT 33.5 % (34.0-46.0); HGB 10.4 gm/dL (11.4-16.0); Hypochromasia Moderate; Lymphocytes # (A) 0.8 k/uL (1.0-4.8); Lymphocytes % (A) 7 %; MCH 25.4 pg (25.0-35.0); MCHC 31.2 g/dL (31.0-37.0); MCV 81.4 fL (80.0-100.0); Mean Platelet Volume 8.1; Monocytes # (A) 0.5 k/uL (0-1.0); Monocytes % (A) 4 %; Neutrophils # (A) 9.4 k/uL (1.3-7.7); Neutrophils % (A) 84 %; Platelet Count 320 k/uL (150-450); RBC 4.11 m/uL (3.80-5.40); RDW 14.8 % (11.5-15.5); WBC 11.1 k/uL (3.8-10.6)
[2024-09-13 07:25] LABS: ALT 19 U/L (4-34); AST 19 U/L (14-36); African American GFR (CKD) 73 (>60 ml/min/1.73 sqM); Albumin 3.6 g/dL (3.5-5.0); Alkaline Phosphatase 139 U/L (38-126); Amylase 65 U/L (30-110); Anion Gap 8 mmol/L; Blood Urea Nitrogen 21 mg/dL (7-17); Carbon Dioxide 25 mmol/L (22-30); Chloride 106 mmol/L (98-107); Glucose 124 mg/dL (74-99); Lipase 123 U/L (23-300); Non-African American GFR(CKD) 64 (>60 ml/min/1.73 sqM); Potassium 5.2 mmol/L (3.5-5.1); Sodium 139 mmol/L (137-145); Total Bilirubin 0.3 mg/dL (0.2-1.3); Total Protein 6.6 g/dL (6.3-8.2)
[2024-09-13 07:57] LABS: Appearance,Urine Clear (Clear); Bilirubin,Urine Negative (Negative); Blood,Urine Negative (Negative); Color,Urine Colorless; Glucose,Urine (UA) Negative (Negative); Ketones,Urine Negative (Negative); Leukocyte Esterase,Urine Small (Negative); Mucus,Urine Rare /hpf; Nitrite,Urine Negative (Negative); Protein,Urine Negative (Negative); RBC,Urine 2 /hpf (0-5); Specific Gravity,Urine 1.011 (1.001-1.035); Squamous Epithelial Cell,Urine <1 /hpf (0-4); Urobilinogen,Urine <2.0 mg/dL (<2.0); WBC,Urine 10 /hpf (0-5)
--- NOTE | 2024-09-13 09:14 | CT ---
EXAMINATION TYPE: CT abdomen pelvis w con DATE OF EXAM: 09/13/2024 8:13 AM COMPARISON: CT abdomen pelvis most recent from 09/08/2024. CLINICAL INDICATION: Female, 78 years old with history of abd pain; Abdominal pain, hx obstruction, u rostomy, bladder ca. TECHNIQUE: Axial CT abdomen pelvis w con;Sagittal and coronal reformats were created on a separate w orkstation. Contrast used:100 mL of Isovue 370 with IV Contrast, (none if empty) Oral contrast used: without Oral Contrast (none if empty) CT DLP: 1070.6 mGycm, Automated exposure control for dose reduction was used. FINDINGS: LOWER CHEST: Large hiatal hernia. Heart is mildly enlarged for size. Cardiac conduction leads termina ting in the right ventricle and right atrium. Relative that ABDOMEN LIVER: Unremarkable GALLBLADDER AND BILE DUCTS: Distended. No cholelithiasis. PANCREAS: Unremarkable. SPLEEN: Unremarkable. ADRENAL GLANDS: 19 mm left adrenal nodule. Right 11 mm nodule. Right is compatible with benign lipid rich adrenal adenoma. Left is indeterminate. KIDNEYS AND URETERS: Atrophic right kidney. Normal-appearing left kidney. No evidence of hydronephros is or renal calculus. The ureters are unremarkable. PELVIS BLADDER: The urinary bladder is surgically absent. There is ileal conduit noted. The REPRODUCTIVE: Unremarkable. ABDOMEN & PELVIS STOMACH AND BOWEL: No evidence of bowel obstruction. Mild dilation of small bowel throughout the abdo men. Surgical suture in the low anterior abdomen with dilation at the anastomotic site. No evidence f or obstruction. Moderate amount of stool throughout colon. Scattered colonic diverticula. The appendi x is visualized and normal. PERITONEUM/RETROPERITONEUM: No evidence of pneumoperitoneum or free fluid. VASCULATURE: Mild atherosclerotic calcifications are present throughout the abdominal aorta and its b ranches. No evidence of aortic aneurysm. MUSCULOSKELETAL: No acute osseous abnormalities, severe degeneration changes of the right hip with byers perior subluxation of the right femoral head into from neoacetabulum and femoral head. Left hip arthr oplasty changes with hardware intact. LYMPH NODES: No gross evidence for lymphadenopathy. SOFT TISSUE/ABDOMINAL WALL: Unremarkable IMPRESSION: 1. Postsurgical changes to the small bowel. There is increased dilation compared 08/31/2024 the smal l bowel. No transition point definitively visualized. Consider small bowel Gastrografin follow-throug h if this concern for constipation.. 2. Indeterminate left adrenal nodule which is stable back to at least 12/30/2022, right adrenal nodul e 3. Atrophic right kidney. No evidence for obstructive uropathy or renal contrast. 4. Large hiatal hernia. 5. Cardiomegaly with cardiac conduction leads in appropriate position. 6. Surgical changes urinary bladder with ileal conduit. No evidence for hydronephrosis. [facility], , 09/13/2024 9:12 AM
[2024-09-13 10:28] VITALS: BP 118/70; PULSE 63; TEMP 98.1
[2024-09-13] MEDS: MAGNESIUM CITRATE 296 ML BOTTLE PO ONE (10:30)
== END 2024-09-13 10:44 | disposition home or self-care (01) ==
LOC: EC 06:08
DX: K44.9 Diaphragmatic hernia without obstruction or gangrene (principal); Z87.891 Personal history of nicotine dependence; Z88.5 Allergy status to narcotic agent; Z95.0 Presence of cardiac pacemaker
CPT/HCPCS: 36415; 80053; 82150; 83605; 83690; 85025; 81001; 74177; 99284; 96374; 96376; 96361; J1171; Q9967

== ENCOUNTER → 2024-09-20 | Outpatient (CLI) | payer MEDICARE, OTHER ==
--- NOTE | 2024-09-22 07:28 | US ---
EXAMINATION TYPE: US extremity nonvasc mass LT DATE OF EXAM: 09/20/2024 COMPARISON: NONE CLINICAL INDICATION: Female, 78 years old with history of R22.40 SWELLING LLE; Patient states feeling a lump posterior thigh proximal to knee. Patient states she is on water pills. TECHNIQUE: Sonographic images taken. FINDINGS: Area of concern scanned. Edema and skin thickening (3.6 mm) seen. No prominent masses o r lesions identified. IMPRESSION: 1. Some skin thickening is present in the area of concern [facility], , 09/22/2024 7:26 AM
--- NOTE | 2024-09-24 00:15 | BD ---
EXAMINATION TYPE: Axial Bone Density DATE OF EXAM: 09/20/2024 CLINICAL HISTORY: 78 years old Female. ICD-10 CODE: M85.80 OTHER DISORDER OF BONE , Additional Histo ry: Height: 64 Weight: 170 FRAX RISK QUESTIONS: Alcohol (3 or more units per day): no Family History (Parent hip fracture): no Glucocorticoids (More than 3mos): no (Ex: prednisone, prednisolone, methylprednisolone, dexamethasone, and hydrocortisone). History of Fracture in Adulthood: no Secondary Osteoporosis: 1. Type 1 Diabetes: no 2. Hyperthyroidism: no 3. Menopause before 45: no 4. Malnutrition: no 5. Chronic liver disease: no Rheumatoid Arthritis: no Current Tobacco Use: no RISK FACTORS HISTORY OF: Surgery to Spine/Hip(right/left)/Wrist (right/left): no EXAM MEASUREMENTS: Bone mineral densitometry was performed using the [email or web address] System. Bone mineral density as measured about the Lumbar spine is: ----- L1-L4(G/cm2): 0.785 T Score Values are as follows: ----- L1: -4.1 ----- L2: -2.8 ----- L3: -2.9 ----- L4: -3.5 ----- L1-L4: -3.3 Z Score Values are as follows: ----- L1: -2.7 ----- L2: -1.4 ----- L3: -1.5 ----- L4: -2.1 ----- L1-L4: -1.9 Bone mineral density : baseline Bone mineral density about the R hip (g/cm2): 0.085 T Score values are as follows: -----R Neck: -6.2 -----R Total: -7.3 Z Score values are as follows: -----R Neck: -4.3 -----R Total: -5.6 Bone mineral density : baseline FRAX%s: The graph provided illustrates a 75.8% chance for a major osteoporotic fx and a 66.9% chance for the hips probability for fx in 10 years time. IMPRESSION: Osteoporosis (T Score less than -2.5). There is increased fracture risk and therapy is usually indicated based on age. Re-Screen 1-2 years. NOTE: T-SCORE=SD OF THE YOUNG ADULT MEAN. [facility], , 09/24/2024 12:12 AM
== END | disposition home or self-care (01) ==
LOC: RADUSWWP 15:19
PROVIDERS: ATTEND Family Medicine
DX: M85.80 Other specified disorders of bone density and structure, unspecified site (principal); M81.8 Other osteoporosis without current pathological fracture; R22.42 Localized swelling, mass and lump, left lower limb; R23.4 Changes in skin texture
CPT/HCPCS: 77080

== ENCOUNTER 2025-01-25 21:38 | Inpatient (IN) | payer MEDICARE, OTHER ==
[2025-01-25] MEDS: SODIUM CHLORIDE 0.9% 1,000 ML IV ONE (23:11)
[2025-01-25] MEDS: ONDANSETRON 4 MG/2 ML VIAL IVP STA (23:12)
[2025-01-25] MEDS: HYDROmorphone 1 MG/ML 1 ML SYRINGE IVP STA (23:14)
[2025-01-25 23:20] LABS: Basophils # (A) 0.05 10*3/uL (0.00-0.10); Basophils % (A) 0.5 %; Eosinophils # (A) 0.29 10*3/uL (0.04-0.35); Eosinophils % (A) 3.1 %; HCT 36.5 % (37.2-46.3); HGB 11.1 g/dL (12.0-15.0); Lymphocytes # (A) 0.94 10*3/uL (0.90-5.00); Lymphocytes % (A) 10.1 %; MCH 23.7 pg (27.0-32.0); MCHC 30.4 g/dL (32.0-37.0); Mean Platelet Volume 9.4 fL (9.5-12.2); Monocytes % (A) 8.6 %; Neutrophils # (A) 7.19 10*3/uL (1.80-7.70); Neutrophils % (A) 77.5 %; Platelet Count 323 10*3/uL (140-440); RBC 4.68 10*6/uL (4.10-5.20); RDW 16.5 % (11.5-14.5); WBC 9.29 10*3/uL (4.50-10.00)
[2025-01-26 00:27] LABS: Amorphous Sediment,Urine Rare /hpf; Appearance,Urine Turbid (Clear); Bacteria,Urine Occasional /hpf; Bilirubin,Urine Negative (Negative); Blood,Urine Negative (Negative); Budding Yeast,Urine Few /hpf; Calcium Oxalate Crystals,Urine Occasional /hpf; Color,Urine Yellow; Glucose,Urine (UA) 2+ (Negative); Hyaline Casts,Urine 8 /lpf (0-2); Ketones,Urine Negative (Negative); Leukocyte Esterase,Urine Large (Negative); Mucus,Urine Occasional /hpf; Nitrite,Urine Positive (Negative); PH, Urine 8.5 (5.0-8.0); Protein,Urine 1+ (Negative); RBC,Urine 36 /hpf (0-5); Specific Gravity,Urine 1.015 (1.001-1.035); Squamous Epithelial Cell,Urine <1 /hpf (0-4); Triple Phosphate Crystal,Urine Moderate /hpf; Urobilinogen,Urine <2.0 mg/dL (<2.0); WBC,Urine 17 /hpf (0-5)
[2025-01-26 00:37] LABS: ALT 11 U/L (4-34); AST 18 U/L (14-36); African American GFR (CKD) 59 (>60 ml/min/1.73 sqM); Albumin 3.5 g/dL (3.5-5.0); Alkaline Phosphatase 141 U/L (38-126); Anion Gap 8 mmol/L; Blood Urea Nitrogen 27 mg/dL (7-17); Calcium 9.7 mg/dL (8.4-10.2); Carbon Dioxide 23 mmol/L (22-30); Chloride 106 mmol/L (98-107); Glucose 100 mg/dL (74-99); Magnesium 3.5 mg/dL (1.6-2.3); Non-African American GFR(CKD) 52 (>60 ml/min/1.73 sqM); Potassium 4.5 mmol/L (3.5-5.1); Sodium 137 mmol/L (137-145); Total Bilirubin 0.6 mg/dL (0.2-1.3); Total Protein 6.6 g/dL (6.3-8.2)
[2025-01-26] MEDS: HYDROmorphone 1 MG/ML 1 ML SYRINGE IVP STA (01:04)
--- NOTE | 2025-01-26 02:44 | CT ---
EXAM: CT Abdomen and Pelvis With Intravenous Contrast CLINICAL HISTORY: ITS.REASON CT Reason: lower abd pain, hx sbo, hx bladder ca with urostomy TECHNIQUE: Axial computed tomography images of the abdomen and pelvis with intravenous contrast. CTDI is 20.7 mGy and DLP is 955.3 mGy-cm. This CT exam was performed using one or more of the following dose reduction techniques: automated exposure control, adjustment of the mA and/or kV according to patient size, and/or use of iterative reconstruction technique. COMPARISON: 09/13/2024 FINDINGS: Lung bases: Unremarkable. No mass. No consolidation. ABDOMEN: Liver: hepatomegaly. Gallbladder and bile ducts: Unremarkable. No calcified stones. No ductal dilation. Pancreas: Unremarkable. No mass. No ductal dilation. Spleen: Unremarkable. No splenomegaly. Adrenals: Unremarkable. No mass. Kidneys and ureters: Delayed imaging demonstrates nonopacification of the ureters. Right renal parenchymal atrophy. Left kidney is unremarkable without evidence of hydronephrosis. Stomach and bowel: Large amount of stool within the colon. Wall thickening and subtle inflammatory changes involving a short segment of descending colon in the left hemipelvis. PELVIS: Appendix: No findings to suggest acute appendicitis. Bladder: Postoperative changes prior cystectomy with right lower quadrant diverting loop ileostomy. Reproductive: Unremarkable as visualized. ABDOMEN and PELVIS: Intraperitoneal space: Unremarkable. No free air. No significant fluid collection. Bones/joints: Postoperative changes of the left hip and femur. Advanced degenerative changes of the right hip. No acute fracture. No dislocation. Soft tissues: Unremarkable. Vasculature: Unremarkable. No abdominal aortic aneurysm. Lymph nodes: Unremarkable. No enlarged lymph nodes. IMPRESSION: Descending colitis likely of infectious or inflammatory etiology Right renal parenchymal atrophy with compensatory hypertrophy of the left kidney. Right lower quadrant ileostomy Postoperative changes prior cystectomy with diverting loop ileostomy.
[2025-01-26] MEDS ORDERED: NALOXONE 0.4 MG/ML 1 ML VIAL IV PRN (03:07)
[2025-01-26] MEDS ORDERED: HYDROmorphone 1 MG/ML 1 ML SYRINGE IVP PRN (03:07)
[2025-01-26] MEDS ORDERED: ACETAMINOPHEN TAB 325 MG TAB PO PRN (03:07)
--- NOTE | 2025-01-26 03:07 | ED ---
Female Urogenital HPI - General Chief complaint: Urogenital Stated complaint: abd pain Time Seen by Provider: 01/25/25 21:40 Source: patient, EMS Mode of arrival: EMS Limitations: no limitations - History of Present Illness Initial comments: 79-year-old female presents emergency department with lower abdominal pain. Patient states that she has experienced this pain before and it was secondary to scar tissue around her urostomy. Patient has had a urostomy for the past 12 years. Procedure was done at [facility]. She states she no longer follows with urologist. She has been hospitalized several times for what she reports is bowel obstructions due to her urostomy. Denies ever having corrective surgery. Patient feels as if her symptoms are similar. She is also concerned for a urinary tract infection. She admits to a dark output in her urostomy. Denies fevers. Patient not currently on any antibiotics. She denies vomiting. Admits nausea. Denies diarrhea, constipation, black or bloody stools. No other alleviating, precipitating or modifying factors - Related Data Home Medications Medication Instructions Recorded Confirmed Omeprazole [PriLOSEC] 20 mg PO Q48H 02/05/15 01/26/25 Potassium Chloride [K-Tab ER] 10 meq PO DAILY 09/01/16 01/26/25 Furosemide [Lasix] 20 mg PO BID 06/02/20 01/26/25 Meclizine [Antivert] 25 mg PO TID PRN 04/27/23 01/26/25 Gabapentin [Neurontin] 100 mg PO DAILY 09/08/24 01/26/25 Magnesium 250 mg PO DAILY 09/08/24 01/26/25 Propafenone HCl 300 mg PO DAILY 09/08/24 01/26/25 Albuterol Sulfate [Albuterol 2 puff PO RT-Q4H PRN 01/26/25 01/26/25 Sulfate Hfa] Aspirin EC [Ecotrin Low Dose] 81 mg PO DAILY 01/26/25 01/26/25 Calcium Carbonate/Vitamin D3 1 tab PO DAILY 01/26/25 01/26/25 [Calcium 500-Vit D3 5 Mcg (200 Iu)] Dapagliflozin Propanediol [Farxiga] 10 mg PO DAILY 01/26/25 01/26/25 Ibuprofen [Motrin] 600 mg PO BID PRN 01/26/25 01/26/25 Rosuvastatin [Crestor] 10 mg PO DAILY 01/26/25 01/26/25 Previous Rx's Medication Instructions Recorded Metoprolol Tartrate [Lopressor] 25 mg PO BID #60 tab 12/21/16 Allergies Allergy/AdvReac Type Severity Reaction Status Date / Time ether Allergy Anaphylaxis Verified 01/26/25 07:41 formaldehyde Allergy Anaphylaxis Verified 01/26/25 07:41 tetanus and diphtheria Allergy Unknown Verified 01/26/25 07:41 toxoids [tetanus & diphtheria toxoids] codeine AdvReac Nausea Verified 01/26/25 07:41 Review of Systems ROS Statement: Those systems with pertinent positive or pertinent negative responses have been documented in the HPI. ROS Other: All systems not noted in ROS Statement are negative. Past Medical History Past Medical History: Atrial Fibrillation, Cancer, GERD/Reflux, Hypertension, Osteoarthritis (OA) Additional Past Medical History / Comment(s): bladder cancer with urostomy, Small Bowel Obstruction, vertigo History of Any Multi-Drug Resistant Organisms: None Reported Date of last positivie culture/infection: 04/29/23 MDRO Source:: Urine Past Surgical History: Ablation, Bladder Surgery, Heart Catheterization, Hernia Repair, Hysterectomy, Orthopedic Surgery, Pacemaker, Tonsillectomy Additional Past Surgical History / Comment(s): LEFT HIP SURGERY x 5, GRAFTS AND MARNIE 2015, ablasion CARDIOVERSION, urostomy 10/2010, cataracts 2017 Past Anesthesia/Blood Transfusion Reactions: Previous Problems w/ Anesthesia Additional Past Anesthesia/Blood Transfusion Reaction / Comment(s): asthma attack Type of Cardiac Device: Permanent Pacemaker Device Placement Date:: 2012 Past Psychological History: Anxiety Smoking Status: Former smoker Past Alcohol Use History: Occasional Past Drug Use History: None Reported - Past Family History Mother Family Medical History: Asthma, GERD/Reflux Additional Family Medical History / Comment(s): diverticulitus, glaucoma Father Family Medical History: Hyperlipidemia Additional Family Medical History / Comment(s): stroke, brain tumour General Exam Limitations: no limitations General appearance: alert, in no apparent distress Head exam: Present: atraumatic, normocephalic, normal inspection Eye exam: Present: normal appearance, PERRL, EOMI. Absent: scleral icterus, conjunctival injection, periorbital swelling ENT exam: Present: normal exam, mucous membranes moist Neck exam: Present: normal inspection. Absent: tenderness, meningismus, lymphadenopathy Respiratory exam: Present: normal lung sounds bilaterally. Absent: respiratory distress, wheezes, rales, rhonchi, stridor Cardiovascular Exam: Present: regular rate, normal rhythm, normal heart sounds. Absent: systolic murmur, diastolic murmur, rubs, gallop, clicks GI/Abdominal exam: Present: soft, tenderness (Lower abdominal tenderness), normal bowel sounds. Absent: distended, guarding, rebound, rigid Extremities exam: Present: normal inspection, full ROM, normal capillary refill. Absent: tenderness, pedal edema, joint swelling, calf tenderness Back exam: Present: normal inspection Neurological exam: Present: alert, oriented X3, CN II-XII intact Psychiatric exam: Present: normal affect, normal mood Skin exam: Present: warm, dry, intact, normal color. Absent: rash Course Vital Signs 01/25/25 01/25/25 01/26/25 21:39 23:24 01:00 Temperature 98.2 F 98.1 F Pulse Rate 87 65 62 Respiratory 19 19 19 Rate Blood Pressure 146/78 152/71 155/75 O2 Sat by Pulse 98 97 98 Oximetry 01/26/25 03:36 Temperature 97.6 F Pulse Rate 65 Respiratory 17 Rate Blood Pressure 128/74 O2 Sat by Pulse 95 Oximetry Medical Decision Making - Medical Decision Making Was pt. sent in by a medical professional or institution (BETH Ansari, DRAIN TILE PRESS OPERATOR, urgent care, hospital, or custodial...) When possible be specific @ -No Did you speak to anyone other than the patient for history (EMS, parent, family, police, friend...)? What history was obtained from this source @ -No Did you review nursing and triage notes (agree or disagree)? Why? @ -I reviewed and agree with nursing and triage notes Were old charts reviewed (outside hosp., previous admission, EMS record, old EKG, old radiological studies, urgent care reports/EKG's, custodial records)? Report findings @ -No old charts were reviewed Differential Diagnosis (chest pain, altered mental status, abdominal pain women, abdominal pain men, vaginal bleeding, weakness, fever, dyspnea, syncope, headache, dizziness, GI bleed, back pain, seizure, CVA, palpatations, mental health, musculoskeletal)? @ -Differential Abdominal Pain Women: Appendicitis, Cholecystitis, diverticulosis, ischemic bowel, pancreatitis, hepatitis, UTI, gastroenteritis, AAA, incarcerated hernia, bowel obstruction, constipation, inflammatory bowel, hepatitis, peptic ulcer disease, splenic infarction, perforated viscus, vulvitis, ovarian torsion, PID, kidney stone, placenta abruption, this is not meant to be an all-inclusive list EKG interpreted by me (3pts min.). @ -Not done X-rays interpreted by me (1pt min.). @ -None done CT interpreted by me (1pt min.). @Yes which demonstrates changes due to previous surgery with possible colitis U/S interpreted by me (1pt. min.). @ -None done What testing was considered but not performed or refused? (CT, X-rays, U/S, labs)? Why? @ -None What meds were considered but not given or refused? Why? @ -None Did you discuss the management of the patient with other professionals (professionals i.e. , PA, DRAIN TILE PRESS OPERATOR, lab, RT, psych nurse, transition social worker, sugar refiner, teacher, tactical/mobile watch officer, caser up)? Give summary @ -Spoke with Fina for admission. Was smoking cessation discussed for >3mins.? @ -No Was critical care preformed (if so, how long)? @ -No Were there social determinants of health that impacted care today? How? (Homelessness, low income, unemployed, alcoholism, drug addiction, transport ation, low edu. Level, literacy, decrease access to med. care, nursing home, rehab)? @ -No Was there de-escalation of care discussed even if they declined (Discuss DNR or withdrawal of care, Hospice)? DNR status @ -No What co-morbidities impacted this encounter? (DM, HTN, Smoking, COPD, CAD, Cancer, CVA, ARF, Chemo, Hep., AIDS, mental health diagnosis, sleep apnea, morbid obesity)? @ -History of bladder cancer with urostomy Was patient admitted / discharged? Hospital course, mention meds given and ro marcelle, prescriptions, significant lab abnormalities, going to OR and other pertinent info. @ -Upon arrival patient seen and evaluated in room 12. Thorough history and physical exam was performed. IV was established. Patient was given pain and nausea medications. Laboratory studies were conducted. CT of the abdomen pelvis was performed. Colitis is visualized on CT. Patient also has an abnorma l UA. I recommended admission on antibiotics with urology and infectious disease consult. Patient was agreeable to this. She was taken to the floor in stable condition Undiagnosed new problem with uncertain prognosis? @ -No Drug Therapy requiring intensive monitoring for toxicity (Heparin, Nitro, Insulin, Cardizem)? @ -No Were any procedures done? @ -No Diagnosis/symptom? @ -Acute abdominal pain, acute colitis, abnormal UA with history of urostomy Acute, or Chronic, or Acute on Chronic? @ -Acute Uncomplicated (without systemic symptoms) or Complicated (systemic symptoms)? @ -Complicated Side effects of treatment? @ -No Exacerbation, Progression, or Severe Exacerbation? @ -No Poses a threat to life or bodily function? How? (Chest pain, [place], [place], pneumonia, PE, COPD, DKA, ARF, appy, cholecystitis, CVA, Diverticulitis, Homicidal, Suicidal, threat to staff... and all critical care pts) @ -No - Lab Data Result diagrams: 01/28/25 05:40 01/28/25 05:40 Lab Results 01/25/25 01/25/25 01/25/25 Range/Units 22:55 22:55 22:55 WBC 9.29 (4.50-10.00) 10*3/uL RBC 4.68 (4.10-5.20) 10*6/uL Hgb 11.1 L (12.0-15.0) g/dL Hct 36.5 L (37.2-46.3) % MCV 78.0 L (80.0-97.0) fL MCH 23.7 L (27.0-32.0) pg MCHC 30.4 L (32.0-37.0) g/dL Plt Count 323 (140-440) 10*3/uL MPV 9.4 L (9.5-12.2) fL Immature Gran % (Auto) 0.2 % Neutrophils % 77.5 % Lymphocytes % 10.1 % Monocytes % 8.6 % Eosinophils % 3.1 % Basophils % 0.5 % Immature Gran # 0.02 (0.00-0.04) 10*3/uL Neutrophils # 7.19 (1.80-7.70) 10*3/uL Lymphocytes # 0.94 (0.90-5.00) 10*3/uL Monocytes # 0.80 (0.20-1.00) 10*3/uL Eosinophils # 0.29 (0.04-0.35) 10*3/uL Basophils # 0.05 (0.00-0.10) 10*3/uL Sodium 137 (137-145) mmol/L Potassium 4.5 (3.5-5.1) mmol/L Chloride 106 (98-107) mmol/L Carbon Dioxide 23 (22-30) mmol/L Anion Gap 8 mmol/L BUN 27 H (7-17) mg/dL Creatinine 1.03 (0.52-1.04) mg/dL Est GFR (CKD-EPI)AfAm 59 (>60 ml/min/1.73 sqM) Est GFR (CKD-EPI)NonAf 52 (>60 ml/min/1.73 sqM) Glucose 100 H (74-99) mg/dL Plasma Lactic Acid Aidan 0.9 (0.7-2.0) mmol/L Calcium 9.7 (8.4-10.2) mg/dL Magnesium 3.5 H (1.6-2.3) mg/dL Total Bilirubin 0.6 (0.2-1.3) mg/dL AST 18 (14-36) U/L ALT 11 (4-34) U/L Alkaline Phosphatase 141 H (38-126) U/L Total Protein 6.6 (6.3-8.2) g/dL Albumin 3.5 (3.5-5.0) g/dL Urine Color Urine Appearance (Clear) Urine pH (5.0-8.0) Ur Specific [place] (1.001-1.035) Urine Protein (Negative) Urine Glucose (UA) (Negative) Urine Ketones (Negative) Urine Blood (Negative) Urine Nitrite (Negative) Urine Bilirubin (Negative) Urine Urobilinogen (<2.0) mg/dL Ur Leukocyte Esterase (Negative) Urine RBC (0-5) /hpf Urine WBC (0-5) /hpf Ur Squamous Epith Cells (0-4) /hpf Calcium Oxalate Crystal (None) /hpf Triple Phos Crystals (None) /hpf Amorphous Sediment (None) /hpf Urine Bacteria (None) /hpf Hyaline Casts (0-2) /lpf Urine Mucus (None) /hpf Urine Yeast (Budding) (None) /hpf 01/25/25 Range/Units 23:02 WBC (4.50-10.00) 10*3/uL RBC (4.10-5.20) 10*6/uL Hgb (12.0-15.0) g/dL Hct (37.2-46.3) % MCV (80.0-97.0) fL MCH (27.0-32.0) pg MCHC (32.0-37.0) g/dL Plt Count (140-440) 10*3/uL MPV (9.5-12.2) fL Immature Gran % (Auto) % Neutrophils % % Lymphocytes % % Monocytes % % Eosinophils % % Basophils % % Immature Gran # (0.00-0.04) 10*3/uL Neutrophils # (1.80-7.70) 10*3/uL Lymphocytes # (0.90-5.00) 10*3/uL Monocytes # (0.20-1.00) 10*3/uL Eosinophils # (0.04-0.35) 10*3/uL Basophils # (0.00-0.10) 10*3/uL Sodium (137-145) mmol/L Potassium (3.5-5.1) mmol/L Chloride (98-107) mmol/L Carbon Dioxide (22-30) mmol/L Anion Gap mmol/L BUN (7-17) mg/dL Creatinine (0.52-1.04) mg/dL Est GFR (CKD-EPI)AfAm (>60 ml/min/1.73 sqM) Est GFR (CKD-EPI)NonAf (>60 ml/min/1.73 sqM) Glucose (74-99) mg/dL Plasma Lactic Acid Aidan (0.7-2.0) mmol/L Calcium (8.4-10.2) mg/dL Magnesium (1.6-2.3) mg/dL Total Bilirubin (0.2-1.3) mg/dL AST (14-36) U/L ALT (4-34) U/L Alkaline Phosphatase (38-126) U/L Total Protein (6.3-8.2) g/dL Albumin (3.5-5.0) g/dL Urine Color Yellow Urine Appearance Turbid H (Clear) Urine pH 8.5 H (5.0-8.0) Ur Specific [place] 1.015 (1.001-1.035) Urine Protein 1+ H (Negative) Urine Glucose (UA) 2+ H (Negative) Urine Ketones Negative (Negative) Urine Blood Negative (Negative) Urine Nitrite Positive H (Negative) Urine Bilirubin Negative (Negative) Urine Urobilinogen <2.0 (<2.0) mg/dL Ur Leukocyte Esterase Large H (Negative) Urine RBC 36 H (0-5) /hpf Urine WBC 17 H (0-5) /hpf Ur Squamous Epith Cells <1 (0-4) /hpf Calcium Oxalate Crystal Occasional H (None) /hpf Triple Phos Crystals Moderate H (None) /hpf Amorphous Sediment Rare H (None) /hpf Urine Bacteria Occasional H (None) /hpf Hyaline Casts 8 H (0-2) /lpf Urine Mucus Occasional H (None) /hpf Urine Yeast (Budding) Few H (None) /hpf Disposition Clinical Impression: UTI (urinary tract infection), History of ileal conduit, Abdominal pain, Colitis Disposition: ADMITTED IP TO THIS [facility] Condition: Stable Is patient prescribed a controlled substance at d/c from ED?: No Time of Disposition: 03:07 Decision to Admit Reason: Admit from EC Decision Date: 01/26/25 Decision Time: 03:07
[2025-01-26] MEDS ORDERED: PIPERACILLIN-TAZOBACTAM 3.375 GM in SODIUM CHLORIDE 0.9% 100 ML IVPB SCH (03:15)
[2025-01-26] MEDS: SODIUM CHLORIDE 0.9% 1,000 ML IV SCH (03:31)
[2025-01-26] MEDS: PIPERACILLIN-TAZOBACTAM 3.375 GM in SODIUM CHLORIDE 0.9% 100 ML IVPB SCH (03:31)
[2025-01-26] MEDS: HYDROmorphone 2 MG/ML 1 ML SYRINGE IVP PRN ×2 (03:40→17:55)
[2025-01-26] MEDS: ONDANSETRON 4 MG/2 ML VIAL IVP PRN (06:03)
[2025-01-26] MEDS ORDERED: MECLIZINE 25 MG TAB PO PRN (08:48)
[2025-01-26] MEDS ORDERED: ALBUTEROL NEBULIZED 2.5 MG/3 ML INHALATION PRN (08:48)
[2025-01-26] MEDS: METOPROLOL TARTRATE 25 MG TAB PO SCH (11:08)
[2025-01-26] MEDS: FUROSEMIDE 20 MG TAB PO SCH (11:08)
[2025-01-26] MEDS: PANTOPRAZOLE 40 MG TABLET PO SCH (11:08)
[2025-01-26] MEDS: GABAPENTIN 100 MG CAP PO SCH (11:08)
[2025-01-26] MEDS: PROPAFENONE 150 MG TAB PO SCH (11:09)
[2025-01-26] MEDS: ENOXAPARIN 40 MG/0.4 ML SYRINGE SQ SCH (11:09)
[2025-01-26] MEDS: CALCIUM CARB-VIT D 500 MG-5 MCG TAB PO SCH (11:09)
[2025-01-26] MEDS: ASPIRIN 81 MG PO SCH (11:09)
[2025-01-26] MEDS: ATORVASTATIN 20 MG TAB PO SCH (11:09)
[2025-01-26] MEDS: DAPAGLIFLOZIN PROPANEDIOL 10 MG TABLET PO SCH (11:09)
[2025-01-26] MEDS: POTASSIUM CHLORIDE ER 10 MEQ TAB.ER.PRT PO SCH (11:09)
--- NOTE | 2025-01-26 11:33 | P.GSCN ---
History of Present Illness Consult date: 01/26/25 Reason for Consult: UTI History of present illness: This is an 79-year-old female with history of bladder cancer, status post radical cystectomy with ileal conduit at [facility] more than 12 years ago. She presents to the hospital with left lower quadrant abdominal pain. Indicates pain associated with nausea. She indicated her ileostomy has been working well without any issues, she does have a history of an atrophic right kidney which is known. Urinalysis on presentation was positive for leukocytes and nitrates, she denies any history of kidney stones. She indicates she has had multiple positive urine cultures, but she is unsure if there truly UTIs are contaminants. Review of Systems - Constitutional Denies fever, Denies weight loss - Cardiovascular Denies chest pain, Denies shortness of breath - Gastrointestinal Reports abdominal pain, Reports nausea - Genitourinary Genitourinary: Denies dysuria, Denies hematuria - Integumentary Denies rash, Denies unusual bruising - Neurological Denies headaches, Denies syncope Past Medical History Past Medical History: Atrial Fibrillation, Cancer, GERD/Reflux, Hypertension, Osteoarthritis (OA) Additional Past Medical History / Comment(s): bladder cancer with urostomy, Small Bowel Obstruction, vertigo History of Any Multi-Drug Resistant Organisms: None Reported Year Discovered:: 04/29/23 MDRO Source:: Urine Past Surgical History: Ablation, Bladder Surgery, Heart Catheterization, Hernia Repair, Hysterectomy, Orthopedic Surgery, Pacemaker, Tonsillectomy Additional Past Surgical History / Comment(s): LEFT HIP SURGERY x 5, GRAFTS AND MARNIE 2015, ablasion CARDIOVERSION, urostomy 10/2010, cataracts 2017 Past Anesthesia/Blood Transfusion Reactions: Previous Problems w/ Anesthesia Additional Past Anesthesia/Blood Transfusion Reaction / Comm: asthma attack Type of Cardiac Device: Permanent Pacemaker Device Placement Date:: 2012 Past Psychological History: Anxiety Smoking Status: Former smoker Past Alcohol Use History: Occasional Past Drug Use History: None Reported - Past Family History Mother Family Medical History: Asthma, GERD/Reflux Additional Family Medical History / Comment(s): diverticulitus, glaucoma Father Family Medical History: Hyperlipidemia Additional Family Medical History / Comment(s): stroke, brain tumour Medications and Allergies Home Medications Medication Instructions Recorded Confirmed Type Omeprazole [PriLOSEC] 20 mg PO Q48H 02/05/15 01/26/25 History Potassium Chloride [K-Tab ER] 10 meq PO DAILY 09/01/16 01/26/25 History Metoprolol Tartrate [Lopressor] 25 mg PO BID #60 tab 12/21/16 01/26/25 Rx Furosemide [Lasix] 20 mg PO BID 06/02/20 01/26/25 History Meclizine [Antivert] 25 mg PO TID PRN 04/27/23 01/26/25 History Gabapentin [Neurontin] 100 mg PO DAILY 09/08/24 01/26/25 History Magnesium 250 mg PO DAILY 09/08/24 01/26/25 History Propafenone HCl 300 mg PO DAILY 09/08/24 01/26/25 History Albuterol Sulfate [Albuterol 2 puff PO RT-Q4H PRN 01/26/25 01/26/25 History Sulfate Hfa] Aspirin EC [Ecotrin Low Dose] 81 mg PO DAILY 01/26/25 01/26/25 History Calcium Carbonate/Vitamin D3 1 tab PO DAILY 01/26/25 01/26/25 History [Calcium 500-Vit D3 5 Mcg (200 Iu)] Dapagliflozin Propanediol [Farxiga] 10 mg PO DAILY 01/26/25 01/26/25 History Ibuprofen [Motrin] 600 mg PO BID PRN 01/26/25 01/26/25 History Rosuvastatin [Crestor] 10 mg PO DAILY 01/26/25 01/26/25 History Allergies Allergy/AdvReac Type Severity Reaction Status Date / Time ether Allergy Anaphylaxis Verified 01/26/25 07:41 formaldehyde Allergy Anaphylaxis Verified 01/26/25 07:41 tetanus and diphtheria Allergy Unknown Verified 01/26/25 07:41 toxoids [tetanus & diphtheria toxoids] codeine AdvReac Nausea Verified 01/26/25 07:41 Surgical - Exam Vital Signs Temp Pulse Resp BP Pulse Ox 98.2 F 87 19 146/78 98 01/25/25 21:39 01/25/25 21:39 01/25/25 21:39 01/25/25 21:39 01/25/25 21:39 - General no distress, moderate pain - Eyes normal ocular movement, no pale - ENT normal nares, normal mucosa - Respiratory normal expansion, normal respiratory effort - Abdomen Stoma the right quadrant, with clear urine, stoma is viable Abdomen: soft, non tender - Psychiatric oriented to time, oriented to person, oriented to place, speech is normal Results - Labs 01/25/25 22:55 01/25/25 22:55 Abnormal Lab Results - Last 24 Hours (Table) 01/25/25 01/25/25 01/25/25 Range/Units 22:55 22:55 23:02 Hgb 11.1 L (12.0-15.0) g/dL Hct 36.5 L (37.2-46.3) % MCV 78.0 L (80.0-97.0) fL MCH 23.7 L (27.0-32.0) pg MCHC 30.4 L (32.0-37.0) g/dL MPV 9.4 L (9.5-12.2) fL BUN 27 H (7-17) mg/dL Glucose 100 H (74-99) mg/dL Magnesium 3.5 H (1.6-2.3) mg/dL Alkaline Phosphatase 141 H (38-126) U/L Urine Appearance Turbid H (Clear) Urine pH 8.5 H (5.0-8.0) Urine Protein 1+ H (Negative) Urine Glucose (UA) 2+ H (Negative) Urine Nitrite Positive H (Negative) Ur Leukocyte Esterase Large H (Negative) Urine RBC 36 H (0-5) /hpf Urine WBC 17 H (0-5) /hpf Calcium Oxalate Crystal Occasional H (None) /hpf Triple Phos Crystals Moderate H (None) /hpf Amorphous Sediment Rare H (None) /hpf Urine Bacteria Occasional H (None) /hpf Hyaline Casts 8 H (0-2) /lpf Urine Mucus Occasional H (None) /hpf Urine Yeast (Budding) Few H (None) /hpf Diabetes panel 01/25/25 Range/Units 22:55 Sodium 137 (137-145) mmol/L Potassium 4.5 (3.5-5.1) mmol/L Chloride 106 (98-107) mmol/L Carbon Dioxide 23 (22-30) mmol/L BUN 27 H (7-17) mg/dL Creatinine 1.03 (0.52-1.04) mg/dL Glucose 100 H (74-99) mg/dL Calcium 9.7 (8.4-10.2) mg/dL AST 18 (14-36) U/L ALT 11 (4-34) U/L Alkaline Phosphatase 141 H (38-126) U/L Total Protein 6.6 (6.3-8.2) g/dL Albumin 3.5 (3.5-5.0) g/dL Calcium panel 01/25/25 Range/Units 22:55 Calcium 9.7 (8.4-10.2) mg/dL Albumin 3.5 (3.5-5.0) g/dL Pituitary panel 01/25/25 Range/Units 22:55 Sodium 137 (137-145) mmol/L Potassium 4.5 (3.5-5.1) mmol/L Chloride 106 (98-107) mmol/L Carbon Dioxide 23 (22-30) mmol/L BUN 27 H (7-17) mg/dL Creatinine 1.03 (0.52-1.04) mg/dL Glucose 100 H (74-99) mg/dL Calcium 9.7 (8.4-10.2) mg/dL Adrenal panel 01/25/25 Range/Units 22:55 Sodium 137 (137-145) mmol/L Potassium 4.5 (3.5-5.1) mmol/L Chloride 106 (98-107) mmol/L Carbon Dioxide 23 (22-30) mmol/L BUN 27 H (7-17) mg/dL Creatinine 1.03 (0.52-1.04) mg/dL Glucose 100 H (74-99) mg/dL Calcium 9.7 (8.4-10.2) mg/dL Total Bilirubin 0.6 (0.2-1.3) mg/dL AST 18 (14-36) U/L ALT 11 (4-34) U/L Alkaline Phosphatase 141 H (38-126) U/L Total Protein 6.6 (6.3-8.2) g/dL Albumin 3.5 (3.5-5.0) g/dL Assessment and Plan Assessment: 79-year-old female admitted to the hospital with abdominal pain, CT abdomen and pelvis showed evidence of colitis, urinalysis is positive. She is not exhibiting symptoms of UTIs, her pain is related to her colitis rather than a UTI. Given her history of a urostomy her urinalysis will always be positive it is more likely to be contaminant than an actual UTI. Infectious disease has been consulted.
[2025-01-26] MEDS: HYDROmorphone 0.5 MG/0.5 ML SYRINGE IVP PRN (12:54)
--- NOTE | 2025-01-26 15:49 | P.HPIM ---
History of Present Illness H&P Date: 01/26/25 History of present illness; Patient is a 79-year-old female with history of bladder cancer, status post radical cystectomy with ileal conduit at [facility] more than 12 years ago presents with suprapubic abdominal pain. She has associated nausea without vomiting. She indicated her ileostomy has been working well without any issues, she does have a history of an atrophic right kidney which is known. She denies any history of kidney stones. Patient reports absence of fever, chills, weight loss, chest pain, palpitations, diaphoresis, dyspnea, cough, abdominal pain, nausea, vomiting, constipation, diarrhea, weakness, myalgia, dizziness, headache, and dysuria. Spoke with the ER physician, patient admission was accepted by internal medicine service for treatment. REVIEW OF SYSTEMS: Pertinent positives and negatives noted in HPI. PHYSICAL EXAMINATION: Vitals reviewed GENERAL: Resting comfortably in bed. EYES: PERRL, no scleral injection or icterus. No vision loss HENT: Normocephalic, atraumatic, hearing grossly intact, moist mucous membranes NECK: No tracheal deviation, full range of motion. CARDIOVASCULAR: S1 and S2 present. No murmurs, rubs, or gallops. PULMONARY: Chest is clear to auscultation, no wheezing, rhonchi, or crackles. ABDOMEN: Soft, moderate suprapubic tenderness, nondistended. No palpable organomegaly. Urostomy bag present. MUSCULOSKELETAL: No apparent joint swelling and deformities. EXTREMITIES: No apparent cyanosis, clubbing. 1+ pedal edema. NEUROLOGICAL: Alert and oriented. Gross neurological examination with no apparent focal deficits. SKIN: No apparent rashes. ER FINDINGS: Labs significant for hemoglobin 11.1, MCV 78, BUN 27, creatinine 1.0, magnesium 3.5, ALP 141. UA likely contaminated from urostomy bag with multiple abnormalitie. CTAP dependently interpreted with findings colitis of descending colon is likely from infectious or inflammatory etiology. Right renal parenchymal atrophy with compensatory hypertrophy of the left kidney, right lower quadrant ileostomy, postoperative changes prior cystectomy with diverting loop ileostomy. Assessment and Plan: In summary, Patient is a 79-year-old female with history of bladder cancer, s tatus post radical cystectomy with ileal conduit at [facility] more than 12 years ago presents with suprapubic abdominal pain. #Colitis of descending colon #UTI, cannot be ruled out # History of bladder cancer with urostomy Begin Zosyn 3.375 g every 8 hours Continue IV fluids Begin [place] [id number], Dilaudid 0.5 mg every 3 hours as needed for pain ID consulted Urology consulted #Microcytic anemia Monitor CBC Chronic Medical Conditions #A-fib #GERD #Hypertension #Bladder cancer with urostomy #Hyperlipidemia #Neuropathy Resume home medications DVT ppx: Subq Lovenox 40 meq daily Code status: Full code F: IV Normal saline 75 mL/hr E: Replete as needed N: Heart healthy diet A: Ambulatory with crutches or walker Anticipated discharge place: Pending clinical course Anticipated discharge time: Pending clinical course Dr. Navarrete seen patient with resident, present during exam, and agreed with findings. Dictation was produced using [employer] dictation software. Please excuse any grammatical, word or spelling errors. Past Medical History Past Medical History: Atrial Fibrillation, Cancer, GERD/Reflux, Hypertension, Osteoarthritis (OA) Additional Past Medical History / Comment(s): bladder cancer with urostomy, Small Bowel Obstruction, vertigo History of Any Multi-Drug Resistant Organisms: None Reported Date of last positivie culture/infection: 04/29/23 MDRO Source:: Urine Past Surgical History: Ablation, Bladder Surgery, Heart Catheterization, Hernia Repair, Hysterectomy, Orthopedic Surgery, Pacemaker, Tonsillectomy Additional Past Surgical History / Comment(s): LEFT HIP SURGERY x 5, GRAFTS AND MARNIE 2015, ablasion CARDIOVERSION, urostomy 10/2010, cataracts 2017 Past Anesthesia/Blood Transfusion Reactions: Previous Problems w/ Anesthesia Additional Past Anesthesia/Blood Transfusion Reaction / Comment(s): asthma attack Type of Cardiac Device: Permanent Pacemaker Device Placement Date:: 2012 Past Psychological History: Anxiety Smoking Status: Former smoker Past Alcohol Use History: Occasional Past Drug Use History: None Reported - Past Family History Mother Family Medical History: Asthma, GERD/Reflux Additional Family Medical History / Comment(s): diverticulitus, glaucoma Father Family Medical History: Hyperlipidemia Additional Family Medical History / Comment(s): stroke, brain tumour Medications and Allergies Home Medications Medication Instructions Recorded Confirmed Type Omeprazole [PriLOSEC] 20 mg PO Q48H 02/05/15 01/26/25 History Potassium Chloride [K-Tab ER] 10 meq PO DAILY 09/01/16 01/26/25 History Metoprolol Tartrate [Lopressor] 25 mg PO BID #60 tab 12/21/16 01/26/25 Rx Furosemide [Lasix] 20 mg PO BID 06/02/20 01/26/25 History Meclizine [Antivert] 25 mg PO TID PRN 04/27/23 01/26/25 History Gabapentin [Neurontin] 100 mg PO DAILY 09/08/24 01/26/25 History Magnesium 250 mg PO DAILY 09/08/24 01/26/25 History Propafenone HCl 300 mg PO DAILY 09/08/24 01/26/25 History Albuterol Sulfate [Albuterol 2 puff PO RT-Q4H PRN 01/26/25 01/26/25 History Sulfate Hfa] Aspirin EC [Ecotrin Low Dose] 81 mg PO DAILY 01/26/25 01/26/25 History Calcium Carbonate/Vitamin D3 1 tab PO DAILY 01/26/25 01/26/25 History [Calcium 500-Vit D3 5 Mcg (200 Iu)] Dapagliflozin Propanediol [Farxiga] 10 mg PO DAILY 01/26/25 01/26/25 History Ibuprofen [Motrin] 600 mg PO BID PRN 01/26/25 01/26/25 History Rosuvastatin [Crestor] 10 mg PO DAILY 01/26/25 01/26/25 History Allergies Allergy/AdvReac Type Severity Reaction Status Date / Time ether Allergy Anaphylaxis Verified 01/26/25 07:41 formaldehyde Allergy Anaphylaxis Verified 01/26/25 07:41 tetanus and diphtheria Allergy Unknown Verified 01/26/25 07:41 toxoids [tetanus & diphtheria toxoids] codeine AdvReac Nausea Verified 01/26/25 07:41 Physical Exam Vitals: Vital Signs Temp Pulse Pulse Resp BP BP Pulse Ox 01/26/25 13:00 97.6 F 80 16 144/72 92 L 01/26/25 09:16 62 18 01/26/25 08:00 62 18 138/72 94 L 01/26/25 04:28 97.9 F 75 12 136/69 95 01/26/25 03:59 17 01/26/25 03:36 97.6 F 65 17 128/74 95 01/26/25 01:00 62 19 155/75 98 01/25/25 23:24 98.1 F 65 19 152/71 97 01/25/25 21:39 98.2 F 87 19 146/78 98 Intake and Output 01/26/25 01/26/25 01/26/25 06:59 14:59 22:59 Intake Total 780 Output Total 1000 Balance -220 Intake: Oral 780 Output: Urine 1000 Other: Voiding Method Toilet Toilet Ileal Conduit (Right) Ileal Conduit (Right) # Voids 1 Weight 77.111 kg Results CBC & Chem 7: 01/25/25 22:55 01/25/25 22:55 Labs: Abnormal Lab Results - Last 24 Hours (Table) 01/25/25 01/25/25 01/25/25 Range/Units 22:55 22:55 23:02 Hgb 11.1 L (12.0-15.0) g/dL Hct 36.5 L (37.2-46.3) % MCV 78.0 L (80.0-97.0) fL MCH 23.7 L (27.0-32.0) pg MCHC 30.4 L (32.0-37.0) g/dL MPV 9.4 L (9.5-12.2) fL BUN 27 H (7-17) mg/dL Glucose 100 H (74-99) mg/dL Magnesium 3.5 H (1.6-2.3) mg/dL Alkaline Phosphatase 141 H (38-126) U/L Urine Appearance Turbid H (Clear) Urine pH 8.5 H (5.0-8.0) Urine Protein 1+ H (Negative) Urine Glucose (UA) 2+ H (Negative) Urine Nitrite Positive H (Negative) Ur Leukocyte Esterase Large H (Negative) Urine RBC 36 H (0-5) /hpf Urine WBC 17 H (0-5) /hpf Calcium Oxalate Crystal Occasional H (None) /hpf Triple Phos Crystals Moderate H (None) /hpf Amorphous Sediment Rare H (None) /hpf Urine Bacteria Occasional H (None) /hpf Hyaline Casts 8 H (0-2) /lpf Urine Mucus Occasional H (None) /hpf Urine Yeast (Budding) Few H (None) /hpf Thrombosis Risk Factor Assmnt - Choose All That Apply Any of the Below Risk Factors Present?: No Other Risk Factors: Yes Each Risk Factor Represents 3 Points: Age 75 years or older Thrombosis Risk Factor Assessment Total Risk Factor Score: 3 Thrombosis Risk Factor Assessment Level: Moderate Risk
[2025-01-26] MEDS: PROCHLORPERAZINE INJ 10 MG/2 ML VIAL IVP SCH (17:55)
[2025-01-26] MEDS: METOCLOPRAMIDE 5 MG/ML 2 ML VIAL IVP SCH (17:57)
--- NOTE | 2025-01-26 21:23 | P.CONS ---
History of Present Illness - Reason for Consult Consult date: 01/26/25 Abnormal UA, urostomy Requesting physician: Ella Randhawa - Chief Complaint Abdominal pain x 1 day - History of Present Illness Patient is a 79-year-old female with a past medical history significant for bladder cancer status post cystectomy and loop urostomy also with history of A-fib reflux hypertension osteoarthritis presenting to the hospital for evaluation of abdominal pain patient pain has been mostly lower abdominal area describing the pain to be sharp moderate intensity without radiation with associated nausea and vomiting denies significant diarrhea or other constipation patient denies having any issues with the urostomy in the urine does not look cloudy and denies high-grade fever with the symptoms the patient has been evaluated on presentation to the hospital patient was afebrile no fever have been ordered subsequently patient was not tachycardic hypotensive or hypoxic white count of 9.29 creatinine 1.03 electrolytes are normal liver enz ymes normal urine was positive patient did have abdominal pelvis CT that has been suggestive of descending colitis and right renal parenchymal atrophy with compensatory hypertrophy of the left kidney, patient was started on Zosyn infectious disease was consulted for abnormal UA history of urostomy Review of Systems Positive point and negatives has been mentioned in the HPI, complete review of systems was performed and all other systems are negative Past Medical History Past Medical History: Atrial Fibrillation, Cancer, GERD/Reflux, Hypertension, Osteoarthritis (OA) Additional Past Medical History / Comment(s): bladder cancer with urostomy, Small Bowel Obstruction, vertigo History of Any Multi-Drug Resistant Organisms: None Reported Year Discovered:: 04/29/23 MDRO Source:: Urine Past Surgical History: Ablation, Bladder Surgery, Heart Catheterization, Hernia Repair, Hysterectomy, Orthopedic Surgery, Pacemaker, Tonsillectomy Additional Past Surgical History / Comment(s): LEFT HIP SURGERY x 5, GRAFTS AND MARNIE 2015, ablasion CARDIOVERSION, urostomy 10/2010, cataracts 2017 Past Anesthesia/Blood Transfusion Reactions: Previous Problems w/ Anesthesia Additional Past Anesthesia/Blood Transfusion Reaction / Comm: asthma attack Type of Cardiac Device: Permanent Pacemaker Device Placement Date:: 2012 Past Psychological History: Anxiety Smoking Status: Former smoker Past Alcohol Use History: Occasional Past Drug Use History: None Reported - Past Family History Mother Family Medical History: Asthma, GERD/Reflux Additional Family Medical History / Comment(s): diverticulitus, glaucoma Father Family Medical History: Hyperlipidemia Additional Family Medical History / Comment(s): stroke, brain tumour Medications and Allergies Home Medications Medication Instructions Recorded Confirmed Type Omeprazole [PriLOSEC] 20 mg PO Q48H 02/05/15 01/26/25 History Potassium Chloride [K-Tab ER] 10 meq PO DAILY 09/01/16 01/26/25 History Metoprolol Tartrate [Lopressor] 25 mg PO BID #60 tab 12/21/16 01/26/25 Rx Furosemide [Lasix] 20 mg PO BID 06/02/20 01/26/25 History Meclizine [Antivert] 25 mg PO TID PRN 04/27/23 01/26/25 History Gabapentin [Neurontin] 100 mg PO DAILY 09/08/24 01/26/25 History Magnesium 250 mg PO DAILY 09/08/24 01/26/25 History Propafenone HCl 300 mg PO DAILY 09/08/24 01/26/25 History Albuterol Sulfate [Albuterol 2 puff PO RT-Q4H PRN 01/26/25 01/26/25 History Sulfate Hfa] Aspirin EC [Ecotrin Low Dose] 81 mg PO DAILY 01/26/25 01/26/25 History Calcium Carbonate/Vitamin D3 1 tab PO DAILY 01/26/25 01/26/25 History [Calcium 500-Vit D3 5 Mcg (200 Iu)] Dapagliflozin Propanediol [Farxiga] 10 mg PO DAILY 01/26/25 01/26/25 History Ibuprofen [Motrin] 600 mg PO BID PRN 01/26/25 01/26/25 History Rosuvastatin [Crestor] 10 mg PO DAILY 01/26/25 01/26/25 History Allergies Allergy/AdvReac Type Severity Reaction Status Date / Time ether Allergy Anaphylaxis Verified 01/26/25 07:41 formaldehyde Allergy Anaphylaxis Verified 01/26/25 07:41 tetanus and diphtheria Allergy Unknown Verified 01/26/25 07:41 toxoids [tetanus & diphtheria toxoids] codeine AdvReac Nausea Verified 01/26/25 07:41 Physical Exam Vitals: Vital Signs Temp Pulse Pulse Resp BP BP Pulse Ox 01/26/25 09:16 62 18 01/26/25 08:00 62 18 138/72 94 L 01/26/25 04:28 97.9 F 75 12 136/69 95 01/26/25 03:59 17 01/26/25 03:36 97.6 F 65 17 128/74 95 01/26/25 01:00 62 19 155/75 98 01/25/25 23:24 98.1 F 65 19 152/71 97 01/25/25 21:39 98.2 F 87 19 146/78 98 Intake and Output 01/25/25 01/26/25 01/26/25 22:59 06:59 14:59 Intake Total 780 Output Total 1000 Balance -220 Intake: Oral 780 Output: Urine 1000 Other: Voiding Method Toilet Toilet Ileal Conduit (Right) Ileal Conduit (Right) # Voids 1 Weight 77.111 kg 77.111 kg GENERAL DESCRIPTION: Elderly female lying in bed, no distress. No tachypnea or a ccessory muscle of respiration use. HEENT: Shows Pallor , no scleral icterus. Oral mucous membrane is dry. No pharyngeal erythema or thrush NECK: Trachea central, no thyromegaly. LUNGS: Unlabored breathing. Clear to auscultation anteriorly. No wheeze or crackle. HEART: S1, S2, regular rate and rhythm. No loud murmur ABDOMEN: Soft, mild lower abdominal/suprapubic tenderness , no guarding or rigidity EXTREMITIES: No edema of feet. SKIN: No rash, no masses palpable. NEUROLOGICAL: The patient is awake, alert, oriented x3, mood and affect normal. Results CBC & Chem 7: 01/25/25 22:55 01/25/25 22:55 Labs: Abnormal Lab Results - Last 24 Hours (Table) 01/25/25 01/25/25 01/25/25 Range/Units 22:55 22:55 23:02 Hgb 11.1 L (12.0-15.0) g/dL Hct 36.5 L (37.2-46.3) % MCV 78.0 L (80.0-97.0) fL MCH 23.7 L (27.0-32.0) pg MCHC 30.4 L (32.0-37.0) g/dL MPV 9.4 L (9.5-12.2) fL BUN 27 H (7-17) mg/dL Glucose 100 H (74-99) mg/dL Magnesium 3.5 H (1.6-2.3) mg/dL Alkaline Phosphatase 141 H (38-126) U/L Urine Appearance Turbid H (Clear) Urine pH 8.5 H (5.0-8.0) Urine Protein 1+ H (Negative) Urine Glucose (UA) 2+ H (Negative) Urine Nitrite Positive H (Negative) Ur Leukocyte Esterase Large H (Negative) Urine RBC 36 H (0-5) /hpf Urine WBC 17 H (0-5) /hpf Calcium Oxalate Crystal Occasional H (None) /hpf Triple Phos Crystals Moderate H (None) /hpf Amorphous Sediment Rare H (None) /hpf Urine Bacteria Occasional H (None) /hpf Hyaline Casts 8 H (0-2) /lpf Urine Mucus Occasional H (None) /hpf Urine Yeast (Budding) Few H (None) /hpf Assessment and Plan (1) Colitis Current Visit: Yes Status: Acute Code(s): K52.9 - NONINFECTIVE GASTROENTERITIS AND COLITIS, UNSPECIFIED SNOMED Code(s): 00269978 Plan: 1patient presented to the hospital with lower abdominal discomfort in this patient also history of constipation nausea and vomiting concerning for colitis possible infectious etiology/diverticulitis with evidence of any perforation or abscess 2-patient did have abnormal UA obtained from urostomy but no other symptoms to suggest urinary tract infection 3-we will suggest treating the patient with Zosyn and see clinical response We will follow on clinical condition and cultures to further adjust medication if needed Thank you for this consultation we will follow the patient along with you Dictation was produced using [employer] dictation software. please excuse any grammatical, word or spelling errors. Time with Patient: Greater than 30
[2025-01-27] MEDS: HYDROcodone/APAP 5-325MG 1 EACH TAB PO PRN (04:45)
[2025-01-27 08:28] LABS: BUN/Creat Ratio 27.36 Ratio (12.00-20.00); Blood Urea Nitrogen 30.1 mg/dL (9.0-27.0); Carbon Dioxide 22.1 mmol/L (21.6-31.8); Chloride 108 mmol/L (96-109); Glucose 129 mg/dL (70-110); Potassium 4.5 mmol/L (3.5-5.5); Sodium 143 mmol/L (135-145)
[2025-01-27 08:44] LABS: Basophils # (A) 0.07 X 10*3/uL (0.00-0.10); Basophils % (A) 0.4 %; Eosinophils # (A) 0.06 X 10*3/uL (0.04-0.35); Eosinophils % (A) 0.4 %; HCT 35.9 % (37.2-46.3); HGB 10.5 g/dL (12.0-15.0); Lymphocytes # (A) 0.51 X 10*3/uL (0.90-5.00); Lymphocytes % (A) 3.2 %; MCH 23.8 pg (27.0-32.0); MCHC 29.2 g/dL (32.0-37.0); MCV 81.2 FL (80.0-97.0); Mean Platelet Volume 9.8 FL (9.5-12.2); Monocytes # (A) 1.11 X 10*3/uL (0.20-1.00); NRBC Per 100 WBC 0 X 10*3/uL (0.00-0.01); Neutrophils # (A) 14.14 X 10*3/uL (1.80-7.70); Neutrophils % (A) 88.6 %; Platelet Count 363 X 10*3/uL (140-440); RBC 4.42 X 10*6/uL (4.10-5.20); RDW 17.2 % (11.5-14.5); WBC 15.95 X 10*3/uL (4.50-10.00)
[2025-01-27 09:08] LABS: HCT 33.9 % (37.2-46.3); HGB 10.3 g/dL (12.0-15.0); MCH 24.1 pg (27.0-32.0); MCHC 30.4 g/dL (32.0-37.0); MCV 79.2 fL (80.0-97.0); Mean Platelet Volume 9.4 fL (9.5-12.2); Platelet Count 341 10*3/uL (140-440); RBC 4.28 10*6/uL (4.10-5.20); WBC 15.38 10*3/uL (4.50-10.00)
[2025-01-27] MEDS: PANTOPRAZOLE 40 MG TABLET PO SCH (10:49)
--- NOTE | 2025-01-27 13:13 | P.PN ---
Subjective Progress Note Date: 01/27/25 History of present illness; Patient is a 79-year-old female with history of bladder cancer, status post rad ical cystectomy with ileal conduit at [facility] more than 12 years ago presents with suprapubic abdominal pain. She has associated nausea without vomiting. She indicated her ileostomy has been working well without any issues, she does have a history of an atrophic right kidney which is known. She denies any history of kidney stones. Patient reports absence of fever, chills, weight loss, chest pain, palpitations, diaphoresis, dyspnea, cough, abdominal pain, nausea, vomiting, constipation, diarrhea, weakness, myalgia, dizziness, headache, and dysuria. 01/27/2025 Patient seen and examined at bedside. She continues to have mild abdominal pain, nausea and vomiting resolved. Continue Zosyn, ID and urology on consult. REVIEW OF SYSTEMS: Pertinent positives and negatives noted in HPI. PHYSICAL EXAMINATION: Vitals reviewed GENERAL: Resting comfortably in bed. EYES: PERRL, no scleral injection or icterus. No vision loss HENT: Normocephalic, atraumatic, hearing grossly intact, moist mucous membranes NECK: No tracheal deviation, full range of motion. CARDIOVASCULAR: S1 and S2 present. No murmurs, rubs, or gallops. PULMONARY: Chest is clear to auscultation, no wheezing, rhonchi, or crackles. ABDOMEN: Soft, moderate suprapubic tenderness, nondistended. No palpable organomegaly. Urostomy bag present. MUSCULOSKELETAL: No apparent joint swelling and deformities. EXTREMITIES: No apparent cyanosis, clubbing. 1+ pedal edema. NEUROLOGICAL: Alert and oriented. Gross neurological examination with no apparent focal deficits. SKIN: No apparent rashes. ER FINDINGS: Labs significant for WBC 15.3, hemoglobin 10.3, MCV 79, BUN 30, glucose 129 No new imaging Assessment and Plan: In summary, patient is a 79-year-old female with history of bladder cancer, status post radical cyst[facility] presents with suprapubic abdominal pain. #Colitis of descending colon #UTI, cannot be ruled out # History of bladder cancer with urostomy Begin Zosyn 3.375 g every 8 hours Continue Reglan, Compazine, Zofran Continue [place] [id number] ID following, notes reviewed Urology following, notes reviewed #Microcytic anemia Monitor CBC Chronic Medical Conditions #A-fib #GERD #Hypertension #Bladder cancer with urostomy #Hyperlipidemia #Neuropathy Resume home medications DVT ppx: Subq Lovenox 40 meq daily Code status: Full code F: PO E: Replete as needed N: CLD A: Ambulatory with crutches or walker Anticipated discharge place: Pending clinical course Anticipated discharge time: Pending clinical course Dr. Navarrete seen patient with resident, present during exam, and agreed with jenise sanderson. Dictation was produced using [employer] dictation software. Please excuse any grammatical, word or spelling errors. Objective - Vital Signs Vital signs: Vital Signs Temp 97.9 F 01/27/25 07:40 Pulse 68 01/27/25 07:43 Resp 16 01/27/25 07:43 BP 116/57 01/27/25 07:40 Pulse Ox 92 L 01/27/25 07:40 FiO2 Intake & Output 01/26/25 01/27/25 01/27/25 18:59 06:59 18:59 Intake Total 1980 790 Output Total 1000 700 Balance 980 90 Intake: Intake, IV Titration 900 Amount Sodium Chloride 0.9% 1, 900 000 ml @ 75 mls/hr IV . [id number] [facility] Rx#:[id number] Oral 1080 790 Output: Urine 1000 700 Other: Voiding Method Ileal Conduit (Right) Toilet Ileal Conduit (Right) Ileal Conduit (Right) - Labs CBC & Chem 7: 01/27/25 08:52 01/27/25 05:15 Labs: Abnormal Lab Results - Last 24 Hours (Table) 01/27/25 01/27/25 Range/Units 05:15 05:15 WBC 15.95 H (4.50-10.00) X 10*3/uL Hgb 10.5 L (12.0-15.0) g/dL Hct 35.9 L (37.2-46.3) % MCH 23.8 L (27.0-32.0) pg MCHC 29.2 L (32.0-37.0) g/dL RDW 17.2 H (11.5-14.5) % Immature Gran # 0.06 H (0.00-0.04) X 10*3/uL Neutrophils # 14.14 H (1.80-7.70) X 10*3/uL Lymphocytes # 0.51 L (0.90-5.00) X 10*3/uL Monocytes # 1.11 H (0.20-1.00) X 10*3/uL Anion Gap 12.90 H (4.00-12.00) mmol/L BUN 30.1 H (9.0-27.0) mg/dL Est GFR (CKD-EPI) 51 L (>=60) BUN/Creatinine Ratio 27.36 H (12.00-20.00) Ratio Glucose 129 H (70-110) mg/dL
--- NOTE | 2025-01-27 15:54 | P.PN ---
Subjective Progress Note Date: 01/27/25 Principal diagnosis: Reason for follow-up is leukocytosis and colitis Patient is a 79-year-old female with a past medical history significant for bladder cancer status post cystectomy and loop urostomy also with history of A-fib reflux hypertension osteoarthritis presenting to the hospital for evaluation of abdominal pain, patient did have CT suggestive of descending colon colitis prompted this consultation. On today's evaluation that is 01/27/2025, the patient continues to be afebrile, the patient is on room air and breathing comfortably, the Pt denies having any chest pain or cough, the patient still complaining of some lower abdominal discomfort but no worsening did have some nausea but no vomiting and no diarrhea or constipation. Patient white coat is 15.38, creat is 1.1 Objective - Vital Signs Vital signs: Vital Signs Temp 97.9 F 01/27/25 13:11 Pulse 70 01/27/25 13:11 Resp 14 01/27/25 13:11 BP 92/52 01/27/25 13:11 Pulse Ox 90 L 01/27/25 13:11 FiO2 Intake & Output 01/26/25 01/27/25 01/27/25 18:59 06:59 18:59 Intake Total 1980 790 Output Total 1000 700 Balance 980 90 Intake: Intake, IV Titration 900 Amount Sodium Chloride 0.9% 1, 900 000 ml @ 75 mls/hr IV . [id number] [facility] Rx#:[id number] Oral 1080 790 Output: Urine 1000 700 Other: Voiding Method Ileal Conduit (Right) Toilet Ileal Conduit (Right) Ileal Conduit (Right) - Exam GENERAL DESCRIPTION: An elderly male lying in bed in no distress RESPIRATORY SYSTEM: Unlabored breathing , decreased breath sounds at bases HEART: S1 S2 regular rate and rhythm , ABDOMEN: Soft , mild tenderness EXTREMITIES: No edema feet - Labs CBC & Chem 7: 01/27/25 08:52 01/27/25 05:15 Labs: Abnormal Lab Results - Last 24 Hours (Table) 01/27/25 01/27/25 01/27/25 Range/Units 05:15 05:15 08:52 WBC 15.95 H 15.38 H (4.50-10.00) X 10*3/uL Hgb 10.5 L 10.3 L (12.0-15.0) g/dL Hct 35.9 L 33.9 L (37.2-46.3) % MCV 79.2 L (80.0-97.0) fL MCH 23.8 L 24.1 L (27.0-32.0) pg MCHC 29.2 L 30.4 L (32.0-37.0) g/dL RDW 17.2 H 17.0 H (11.5-14.5) % MPV 9.4 L (9.5-12.2) fL Immature Gran # 0.06 H (0.00-0.04) X 10*3/uL Neutrophils # 14.14 H (1.80-7.70) X 10*3/uL Lymphocytes # 0.51 L (0.90-5.00) X 10*3/uL Monocytes # 1.11 H (0.20-1.00) X 10*3/uL Anion Gap 12.90 H (4.00-12.00) mmol/L BUN 30.1 H (9.0-27.0) mg/dL Est GFR (CKD-EPI) 51 L (>=60) BUN/Creatinine Ratio 27.36 H (12.00-20.00) Ratio Glucose 129 H (70-110) mg/dL Assessment and Plan (1) Colitis Current Visit: Yes Status: Acute Code(s): K52.9 - NONINFECTIVE GASTROENTERITIS AND COLITIS, UNSPECIFIED SNOMED Code(s): 68416261 (2) Leukocytosis Current Visit: Yes Status: Acute Code(s): D72.829 - ELEVATED WHITE BLOOD CELL COUNT, UNSPECIFIED SNOMED Code(s): 555707512 Plan: 1patient presented to the hospital with lower abdominal discomfort in this patient also history of constipation nausea and vomiting concerning for colitis possible infectious etiology/diverticulitis with evidence of any perforation or abscess 2-patient did have abnormal UA obtained from urostomy but no other symptoms to suggest urinary tract infection 3-patient did have slight worsening of the white count, will monitor closely for now continue with Zosyn and monitor clinical course closely Dictation was produced using [employer] dictation software. please excuse any grammatical, word or spelling errors. Time with Patient: Less than 30
[2025-01-28 10:05] LABS: BUN/Creat Ratio 30.25 Ratio (12.00-20.00); Blood Urea Nitrogen 36.3 mg/dL (9.0-27.0); Glucose 122 mg/dL (70-110)
[2025-01-28 10:06] LABS: Calcium 9.2 mg/dL (8.7-10.3); Carbon Dioxide 23.9 mmol/L (21.6-31.8); Chloride 106 mmol/L (96-109); Potassium 3.9 mmol/L (3.5-5.5); Sodium 141 mmol/L (135-145)
[2025-01-28 10:17] LABS: HCT 34.1 % (37.2-46.3); MCH 23.5 pg (27.0-32.0); MCHC 29.3 g/dL (32.0-37.0); MCV 80.2 FL (80.0-97.0); Mean Platelet Volume 10.1 FL (9.5-12.2); NRBC Per 100 WBC 0 X 10*3/uL (0.00-0.01); Platelet Count 326 X 10*3/uL (140-440); RBC 4.25 X 10*6/uL (4.10-5.20); RDW 17.2 % (11.5-14.5); WBC 13.06 X 10*3/uL (4.50-10.00)
--- NOTE | 2025-01-28 14:19 | P.PN ---
Subjective Progress Note Date: 01/28/25 History of present illness; Patient is a 79-year-old female with history of bladder cancer, status post rad ical cystectomy with ileal conduit at [facility] more than 12 years ago presents with suprapubic abdominal pain. She has associated nausea without vomiting. She indicated her ileostomy has been working well without any issues, she does have a history of an atrophic right kidney which is known. She denies any history of kidney stones. Patient reports absence of fever, chills, weight loss, chest pain, palpitations, diaphoresis, dyspnea, cough, abdominal pain, nausea, vomiting, constipation, diarrhea, weakness, myalgia, dizziness, headache, and dysuria. 01/27/2025 Patient seen and examined at bedside. She continues to have mild abdominal pain, nausea and vomiting resolved. Continue Zosyn, ID and urology on consult. 01/28/2025 Patient seen and examined at bedside. Abdominal pain is improving, nausea and vomiting resolved. Continue Zosyn, ID following. REVIEW OF SYSTEMS: Pertinent positives and negatives noted in HPI. PHYSICAL EXAMINATION: Vitals reviewed GENERAL: Resting comfortably in bed. CARDIOVASCULAR: S1 and S2 present. No murmurs, rubs, or gallops. PULMONARY: Chest is clear to auscultation, no wheezing, rhonchi, or crackles. ABDOMEN: Soft, mild suprapubic tenderness, nondistended. No palpable organomegaly. Urostomy bag present. MUSCULOSKELETAL: No apparent joint swelling and deformities. EXTREMITIES: No apparent cyanosis, clubbing. Lipedema. No pitting edema NEUROLOGICAL: Alert and oriented. Gross neurological examination with no apparent focal deficits. SKIN: No apparent rashes. Objective FINDINGS: Labs significant for WBC 13, hemoglobin 10, BUN 36, glucose 122 No new imaging Assessment and Plan: In summary, patient is a 79-year-old female with history of bladder cancer, status post radical cystectomy with ileal conduit at [facility] more than 12 years ago presents with suprapubic abdominal pain. #Colitis of descending colon # History of bladder cancer with urostomy #Leukocytosis, improving Begin Zosyn 3.375 g every 8 hours Continue Reglan, Compazine, Zofran Continue [place] [address] ID following, notes reviewed Urology following, notes reviewed #Microcytic anemia Monitor CBC #Prerenal azotemia BUN elevated - monitor BMP Chronic Medical Conditions #A-fib #GERD #Hypertension #Bladder cancer with urostomy #Hyperlipidemia #Neuropathy Resume home medications DVT ppx: Subq Lovenox 40 meq daily Code status: Full code F: PO E: Replete as needed N: CLD, advance as tolerated A: Ambulatory with crutches or walker Anticipated discharge place: Home Anticipated discharge time: [address] Fall seen patient with resident, present during exam, and agreed with findings. Dictation was produced using [employer] dictation software. Please excuse any gra mmatical, word or spelling errors. Objective - Vital Signs Vital signs: Vital Signs Temp 97.4 F L 01/28/25 13:07 Pulse 83 01/28/25 13:07 Resp 15 01/28/25 13:07 BP 128/72 01/28/25 13:07 Pulse Ox 96 01/28/25 13:07 FiO2 Intake & Output 01/27/25 01/28/25 01/28/25 18:59 06:59 18:59 Intake Total 1620 1030 Output Total 800 600 Balance 820 430 Intake: Intake, IV Titration 200 Amount Piperacillin-Tazobactam 3 200 .375 gm In Sodium Chloride 0.9% 100 ml @ 25 mls/hr IVPB Q8H [facility] Rx#: [id number] Oral 1620 830 Output: Urine 800 600 Other: Voiding Method Ileal Conduit (Right) Ileal Conduit (Right) Ileal Conduit (Right) - Labs CBC & Chem 7: 01/28/25 05:40 01/28/25 05:40 Labs: Abnormal Lab Results - Last 24 Hours (Table) 01/28/25 01/28/25 Range/Units 05:40 05:40 WBC 13.06 H (4.50-10.00) X 10*3/uL Hgb 10.0 L (12.0-15.0) g/dL Hct 34.1 L (37.2-46.3) % MCH 23.5 L (27.0-32.0) pg MCHC 29.3 L (32.0-37.0) g/dL RDW 17.2 H (11.5-14.5) % BUN 36.3 H (9.0-27.0) mg/dL Est GFR (CKD-EPI) 46 L (>=60) BUN/Creatinine Ratio 30.25 H (12.00-20.00) Ratio Glucose 122 H (70-110) mg/dL
--- NOTE | 2025-01-28 14:28 | P.PN ---
Subjective Progress Note Date: 01/28/25 Principal diagnosis: Reason for follow-up is leukocytosis and colitis Patient is a 79-year-old female with a past medical history significant for bladder cancer status post cystectomy and loop urostomy also with history of A-fib reflux hypertension osteoarthritis presenting to the hospital for evaluation of abdominal pain, patient did have CT suggestive of descending colon colitis prompted this consultation. On today's evaluation that is 01/28/2025, patient did not have any fever and denies any chills, patient is breathing comfortably on room air, patient with no chest pain or cough patient denies having nausea vomiting abdominal pain slightly decreased intensity no diarrhea. Patient white count is down to 13.06, creatinine is 1.2 Objective - Vital Signs Vital signs: Vital Signs Temp 97.4 F L 01/28/25 13:07 Pulse 83 01/28/25 13:07 Resp 15 01/28/25 13:07 BP 128/72 01/28/25 13:07 Pulse Ox 96 01/28/25 13:07 FiO2 Intake & Output 01/27/25 01/28/25 01/28/25 18:59 06:59 18:59 Intake Total 1620 1030 Output Total 800 600 Balance 820 430 Intake: Intake, IV Titration 200 Amount Piperacillin-Tazobactam 3 200 .375 gm In Sodium Chloride 0.9% 100 ml @ 25 mls/hr IVPB Q8H [facility] Rx#: [id number] Oral 1620 830 Output: Urine 800 600 Other: Voiding Method Ileal Conduit (Right) Ileal Conduit (Right) Ileal Conduit (Right) - Exam GENERAL DESCRIPTION: An elderly male lying in bed in no distress RESPIRATORY SYSTEM: Unlabored breathing , decreased breath sounds at bases HEART: S1 S2 regular rate and rhythm , ABDOMEN: Soft , mild tenderness EXTREMITIES: No edema feet - Labs CBC & Chem 7: 01/28/25 05:40 01/28/25 05:40 Labs: Abnormal Lab Results - Last 24 Hours (Table) 01/28/25 01/28/25 Range/Units 05:40 05:40 WBC 13.06 H (4.50-10.00) X 10*3/uL Hgb 10.0 L (12.0-15.0) g/dL Hct 34.1 L (37.2-46.3) % MCH 23.5 L (27.0-32.0) pg MCHC 29.3 L (32.0-37.0) g/dL RDW 17.2 H (11.5-14.5) % BUN 36.3 H (9.0-27.0) mg/dL Est GFR (CKD-EPI) 46 L (>=60) BUN/Creatinine Ratio 30.25 H (12.00-20.00) Ratio Glucose 122 H (70-110) mg/dL Assessment and Plan (1) Colitis Current Visit: Yes Status: Acute Code(s): K52.9 - NONINFECTIVE GASTROENTERITIS AND COLITIS, UNSPECIFIED SNOMED Code(s): 17903749 (2) Leukocytosis Current Visit: Yes Status: Acute Code(s): D72.829 - ELEVATED WHITE BLOOD CELL COUNT, UNSPECIFIED SNOMED Code(s): 499071305 Plan: 1patient presented to the hospital with lower abdominal discomfort in this patient also history of constipation nausea and vomiting concerning for colitis possible infectious etiology/diverticulitis with evidence of any perforation or abscess 2-patient did have abnormal UA obtained from urostomy but no other symptoms to suggest urinary tract infection 3-patient did have improvement in her white count abdominal pain slightly decreased intensity to continue with the Zosyn and monitor clinical course closely Dictation was produced using [employer] dictation software. please excuse any grammatical, word or spelling errors. Time with Patient: Less than 30
[2025-01-29] MEDS: LOPERAMIDE 2 MG CAP PO STA (05:28)
[2025-01-29] MEDS: SODIUM CHLORIDE 0.9% 1,000 ML IV SCH (12:10)
[2025-01-29] MEDS: LOPERAMIDE 2 MG CAP PO PRN (12:10)
--- NOTE | 2025-01-29 15:38 | P.PN ---
Subjective Progress Note Date: 01/29/25 Principal diagnosis: Reason for follow-up is leukocytosis and colitis Patient is a 79-year-old female with a past medical history significant for bladder cancer status post cystectomy and loop urostomy also with history of A-fib reflux hypertension osteoarthritis presenting to the hospital for evaluation of abdominal pain, patient did have CT suggestive of descending colon colitis prompted this consultation. On today's evaluation that is 01/29/2025, Patient is afebrile patient is currently on room air and denies having any shortness of breath, the patient denies any chest pain or cough, the patient denies any nausea vomiting mention abdominal pain has slightly decreased intensity he is having diarrhea. The patient white count is 13.06 as of yesterday no CBC was done today Objective - Vital Signs Vital signs: Vital Signs Temp 98 F 01/29/25 14:43 Pulse 76 01/29/25 14:43 Resp 17 01/29/25 14:43 BP 105/62 01/29/25 14:43 Pulse Ox 94 L 01/29/25 14:43 FiO2 Intake & Output 01/28/25 01/29/25 01/29/25 18:59 06:59 18:59 Intake Total 680 1150 Output Total 900 Balance 680 250 Intake: Intake, IV Titration 100 200 Amount Piperacillin-Tazobactam 3 100 200 .375 gm In Sodium Chloride 0.9% 100 ml @ 25 mls/hr IVPB Q8H [facility] Rx#: [id number] Oral 580 950 Output: Urine 900 Other: Voiding Method Ileal Conduit (Right) Ileal Conduit (Right) Ileal Conduit (Right) # Bowel Movements 1 1 - Exam GENERAL DESCRIPTION: An elderly male lying in bed in no distress RESPIRATORY SYSTEM: Unlabored breathing , decreased breath sounds at bases HEART: S1 S2 regular rate and rhythm , ABDOMEN: Soft , mild tenderness EXTREMITIES: No edema feet - Labs CBC & Chem 7: 01/28/25 05:40 01/28/25 05:40 Assessment and Plan (1) Colitis Current Visit: Yes Status: Acute Code(s): K52.9 - NONINFECTIVE GASTROENTERI TIS AND COLITIS, UNSPECIFIED SNOMED Code(s): 03069264 (2) Leukocytosis Current Visit: Yes Status: Acute Code(s): D72.829 - ELEVATED WHITE BLOOD CELL COUNT, UNSPECIFIED SNOMED Code(s): 842436351 Plan: 1patient presented to the hospital with lower abdominal discomfort in this patient also history of constipation nausea and vomiting concerning for colitis possible infectious etiology/diverticulitis with evidence of any perforation or abscess 2-patient did have abnormal UA obtained from urostomy but no other symptoms to suggest urinary tract infection 3-patient did have improvement in her white count as of yesterday started having diarrhea we will check a stool culture stool for C. difficile continue with Zosyn encouraged to increase her yogurt intake Dictation was produced using [employer] dictation software. please excuse any grammatical, word or spelling errors. Time with Patient: Less than 30
--- NOTE | 2025-01-29 22:21 | P.PN ---
Subjective Progress Note Date: 01/29/25 Patient is a 79-year-old female with history of bladder cancer, status post radical cystectomy with [facility] 12 years ago presents with suprapubic abdominal pain. She has associated nausea without vomiting. She indicated her ileostomy has been working well without any issues, she does have a history of an atrophic right kidney which is known. She denies any history of kidney stones. Patient reports absence of fever, chills, weight loss, chest pain, palpitations, diaphoresis, dyspnea, cough, abdominal pain, nausea, vomiting, constipation, diarrhea, weakness, myalgia, dizziness, headache, and dysuria. 01/27/2025 Patient seen and examined at bedside. She continues to have mild abdominal pain, nausea and vomiting resolved. Continue Zosyn, ID and urology on consult. 01/28/2025 Patient seen and examined at bedside. Abdominal pain is improving, nausea and vomiting resolved. Continue Zosyn, ID following. 01/29/2025 Patient is awake alert and oriented x 3. Able to ambulate in the room. Complains of diarrhea with loose stools. Patient is being continued on antib iotics along with Zosyn. No complaints of abdominal pain. No nausea or vomiting. Able to tolerate oral diet slowly. Patient was also started on IV hydration with normal saline. ID is on board. Previous laboratory data reviewed. PHYSICAL EXAMINATION: Vitals reviewed GENERAL: Resting comfortably in bed. CARDIOVASCULAR: S1 and S2 present. No murmurs, rubs, or gallops. PULMONARY: Chest is clear to auscultation, no wheezing, rhonchi, or crackles. ABDOMEN: Soft, mild suprapubic tenderness, nondistended. No palpable organomegaly. Urostomy bag present. MUSCULOSKELETAL: No apparent joint swelling and deformities. EXTREMITIES: No apparent cyanosis, clubbing. Lipedema. No pitting edema NEUROLOGICAL: Alert and oriented. Gross neurological examination with no apparent focal deficits. SKIN: No apparent rashes. Objective FINDINGS: Labs significant for WBC 13, hemoglobin 10, BUN 36, glucose 122 No new imaging Assessment and Plan: In summary, patient is a 79-year-old female with history of bladder cancer, status post radical cystectomy with [facility]al [facility] years ago presents with suprapubic abdominal pain. #Colitis of descending colon # History of bladder cancer with urostomy #Leukocytosis, improving Continue Zosyn 3.375 g every 8 hours Continue Reglan, Compazine, Zofran as needed. Continue [place] [address] as needed for pain. ID following, notes reviewed Urology following, notes reviewed #Microcytic anemia Monitor CBC #Prerenal azotemia BUN elevated - monitor BMP Chronic Medical Conditions #A-fib #GERD #Hypertension #Bladder cancer with urostomy #Hyperlipidemia #Neuropathy Resume home medications DVT ppx: Subq Lovenox 40 meq daily Code status: Full code F: PO E: Replete as needed N: CLD, advance as tolerated A: Ambulatory with crutches or walker Anticipated discharge place: Home Anticipated discharge time: 1 to 2 days Objective - Vital Signs Vital signs: Vital Signs Temp 98.2 F 01/29/25 07:01 Pulse 71 01/29/25 07:01 Resp 18 01/29/25 07:01 BP 103/57 01/29/25 07:01 Pulse Ox 94 L 01/29/25 07:01 FiO2 Intake & Output 01/28/25 01/29/25 01/29/25 18:59 06:59 18:59 Intake Total 680 1150 Output Total 900 Balance 680 250 Intake: Intake, IV Titration 100 200 Amount Piperacillin-Tazobactam 3 100 200 .375 gm In Sodium Chloride 0.9% 100 ml @ 25 mls/hr IVPB Q8H [facility] Rx#: [id number] Oral 580 950 Output: Urine 900 Other: Voiding Method Ileal Conduit (Right) Ileal Conduit (Right) Ileal Conduit (Right) # Bowel Movements 1 1 - Labs CBC & Chem 7: 01/28/25 05:40 01/28/25 05:40
[2025-01-30 08:57] LABS: Basophils # (A) 0.03 X 10*3/uL (0.00-0.10); Basophils % (A) 0.4 %; Eosinophils # (A) 0.16 X 10*3/uL (0.04-0.35); Eosinophils % (A) 2.2 %; HCT 31.2 % (37.2-46.3); HGB 9.3 g/dL (12.0-15.0); Lymphocytes # (A) 1.13 X 10*3/uL (0.90-5.00); Lymphocytes % (A) 15.8 %; MCH 23.3 pg (27.0-32.0); MCHC 29.8 g/dL (32.0-37.0); MCV 78.2 FL (80.0-97.0); Mean Platelet Volume 10.1 FL (9.5-12.2); Monocytes # (A) 0.97 X 10*3/uL (0.20-1.00); Monocytes % (A) 13.5 %; NRBC Per 100 WBC 0 X 10*3/uL (0.00-0.01); Neutrophils # (A) 4.83 X 10*3/uL (1.80-7.70); Neutrophils % (A) 67.5 %; Platelet Count 278 X 10*3/uL (140-440); RBC 3.99 X 10*6/uL (4.10-5.20); RDW 16.7 % (11.5-14.5); WBC 7.16 X 10*3/uL (4.50-10.00)
[2025-01-30 09:09] LABS: % Iron Saturation 5.74 (12.00-45.00); BUN/Creat Ratio 19.73 Ratio (12.00-20.00); Blood Urea Nitrogen 21.7 mg/dL (9.0-27.0); Calcium 8.6 mg/dL (8.7-10.3); Carbon Dioxide 25.4 mmol/L (21.6-31.8); Chloride 105 mmol/L (96-109); Glucose 92 mg/dL (70-110); Iron 14 UG/DL (50-170); Sodium 140 mmol/L (135-145); Total Iron Binding Capacity 244 UG/DL (228-460)
[2025-01-30] MEDS: POTASSIUM CHLORIDE ER 20 MEQ TAB.ER PO SCH (10:33)
[2025-01-30 12:59] VITALS: BP 92/60; PULSE 66; RESP 18; TEMP 98
[2025-01-30] MEDS: CHOLESTYRAMINE (WITH SUGAR) 4 GM PACKET PO SCH (13:35)
--- NOTE | 2025-01-30 15:56 | P.DS ---
Providers Date of admission: 01/26/25 03:07 Expected date of discharge: 01/30/25 Attending physician: Rao Garduno Consults: 01/26/25 03:07 Consult Physician Urgent Consulting Provider: Nikolai Fuller Consult Reason/Comments: uti, hx urostomy, needs follow up Do you want consulting provider notified?: Yes Consult Physician Urgent Consulting Provider: Rosas Murillo Consult Reason/Comments: abn ua, hx urostomy Do you want consulting provider notified?: Yes Primary care physician: Alberto Koenig Hospital Course: Discharge diagnoses; #Colitis of descending colon #History of bladder cancer with urostomy #Leukocytosis #Microcytic anemia #Prerenal azotemia #A-fib #GERD #Hypertension #Bladder cancer with urostomy #Hyperlipidemia #Neuropathy Hospital course; Patient is a 79-year-old female with history of bladder cancer, status post radical cystectomy with ileal conduit at [facility] more than 12 years ago presents with suprapubic abdominal pain. She has associated nausea without vomiting. She indicated her ileostomy has been working well without any issues, she does have a history of an atrophic right kidney which is known. She denies any his tory of kidney stones. Patient reports absence of fever, chills, weight loss, chest pain, palpitations, diaphoresis, dyspnea, cough, abdominal pain, nausea, vomiting, constipation, diarrhea, weakness, myalgia, dizziness, headache, and dysuria. During hospital stay patient was treated for colitis of the descending colon without perforation or abscess as seen by CT abdomen. She began on Zosyn and began to clinically improve. Patient discharged to home in stable condition. She is to continue Ceftin 500 mg twice daily and Flagyl 500 mg 3 times daily for 7 days. She may also continue Questran for diarrhea associated with antibiotics. She should continue soft diet and advance as tolerated. She is to follow-up with her PCP. PHYSICAL EXAMINATION: Vitals reviewed GENERAL: Resting comfortably in bed. CARDIOVASCULAR: S1 and S2 present. No murmurs, rubs, or gallops. PULMONARY: Chest is clear to auscultation, no wheezing, rhonchi, or crackles. ABDOMEN: Soft, mild suprapubic tenderness, nondistended. No palpable organomegaly. Urostomy bag present. MUSCULOSKELETAL: No apparent joint swelling and deformities. EXTREMITIES: No apparent cyanosis, clubbing. Lipedema. No pitting edema NEUROLOGICAL: Alert and oriented. Gross neurological examination with no apparent focal deficits. SKIN: No apparent rashes. Dr. Navarrete seen patient with resident, present during exam, and agreed with findings. Dictation was produced using [employer] dictation software. please excuse any grammatical, word or spelling errors. Patient Condition at Discharge: Stable Plan - Discharge Summary Discharge Rx Participant: Yes New Discharge Prescriptions: New cefuroxime axetiL [Ceftin] 500 mg PO BID-W/MEALS #14 tab metroNIDAZOLE [Flagyl] 500 mg PO TID #21 tab Cholestyramine (with Sugar) [Questran Packet] 4 gm PO BID@1000,1800 #14 packet Continue Omeprazole [PriLOSEC] 20 mg PO Q48H Potassium Chloride [K-Tab ER] 10 meq PO DAILY Metoprolol Tartrate [Lopressor] 25 mg PO BID #60 tab Furosemide [Lasix] 20 mg PO BID Propafenone HCl 300 mg PO DAILY Dapagliflozin Propanediol [Farxiga] 10 mg PO DAILY Albuterol Sulfate [Albuterol Sulfate Hfa] 2 puff PO RT-Q4H PRN PRN Reason: Shortness Of Breath Rosuvastatin [Crestor] 10 mg PO DAILY Meclizine [Antivert] 25 mg PO TID PRN PRN Reason: Vertigo Magnesium 250 mg PO DAILY Gabapentin [Neurontin] 100 mg PO DAILY Calcium Carbonate/Vitamin D3 [Calcium 500-Vit D3 5 Mcg (200 Iu)] 1 tab PO DA KAVITA Aspirin EC [Ecotrin Low Dose] 81 mg PO DAILY Ibuprofen [Motrin] 600 mg PO BID PRN PRN Reason: Pain Discharge Medication List Omeprazole [PriLOSEC] 20 mg PO Q48H 02/05/15 [History] Potassium Chloride [K-Tab ER] 10 meq PO DAILY 09/01/16 [History] Metoprolol Tartrate [Lopressor] 25 mg PO BID #60 tab 12/21/16 [Rx] Furosemide [Lasix] 20 mg PO BID 06/02/20 [History] Meclizine [Antivert] 25 mg PO TID PRN 04/27/23 [History] Gabapentin [Neurontin] 100 mg PO DAILY 09/08/24 [History] Magnesium 250 mg PO DAILY 09/08/24 [History] Propafenone HCl 300 mg PO DAILY 09/08/24 [History] Albuterol Sulfate [Albuterol Sulfate Hfa] 2 puff PO RT-Q4H PRN 01/26/25 [History] Aspirin EC [Ecotrin Low Dose] 81 mg PO DAILY 01/26/25 [History] Calcium Carbonate/Vitamin D3 [Calcium 500-Vit D3 5 Mcg (200 Iu)] 1 tab PO DAILY 01/26/25 [History] Dapagliflozin Propanediol [Farxiga] 10 mg PO DAILY 01/26/25 [History] Ibuprofen [Motrin] 600 mg PO BID PRN 01/26/25 [History] Rosuvastatin [Crestor] 10 mg PO DAILY 01/26/25 [History] Cholestyramine (with Sugar) [Questran Packet] 4 gm PO BID@1000,1800 #14 packet 01/30/25 [Rx] cefuroxime axetiL [Ceftin] 500 mg PO BID-W/MEALS #14 tab 01/30/25 [Rx] metroNIDAZOLE [Flagyl] 500 mg PO TID #21 tab 01/30/25 [Rx] Follow up Appointment(s)/Referral(s): Alberto Koenig DO [Primary Care Provider] - 02/08/25 10:00 am Activity/Diet/Wound Care/Special Instructions: Continue antibiotics for the next 7 days. Continue cholestyramine as needed for diarrhea up to twice a day. Follow-up with PCP. Discharge Disposition: HOME SELF-CARE
--- NOTE | 2025-01-31 14:11 | P.PN ---
Subjective Progress Note Date: 01/30/25 Principal diagnosis: Reason for follow-up is leukocytosis and colitis Patient is a 79-year-old female with a past medical history significant for bladder cancer status post cystectomy and loop urostomy also with history of A-fib reflux hypertension osteoarthritis presenting to the hospital for evaluation of abdominal pain, patient did have CT suggestive of descending colon colitis prompted this consultation. On today's evaluation that is 01/30/2025, patient has been afebrile, patient is breathing comfortably and is currently on room air, patient denies having any chest pain and cough, patient denies nausea vomiting did have improvement in abdominal pain has developed some diarrhea. Patient white normalized to 7.16, creatinine is 1.1 stool for C. difficile neg ative stool cultures pending Objective - Vital Signs Vital signs: Vital Signs Temp 98.2 F 01/30/25 08:00 Pulse 116 H 01/30/25 08:00 Resp 16 01/30/25 08:00 BP 103/62 01/30/25 08:00 Pulse Ox 93 L 01/30/25 08:00 FiO2 Intake & Output 01/29/25 01/30/25 01/30/25 18:59 06:59 18:59 Intake Total 480 Output Total 900 1200 Balance -900 -1200 480 Intake: Oral 480 Output: Urine 900 1200 Other: Voiding Method Ileal Conduit (Right) Ileal Conduit (Right) Ileal Conduit (Right) - Exam GENERAL DESCRIPTION: An elderly male lying in bed in no distress RESPIRATORY SYSTEM: Unlabored breathing , decreased breath sounds at bases HEART: S1 S2 regular rate and rhythm , ABDOMEN: Soft , mild tenderness EXTREMITIES: No edema feet - Labs CBC & Chem 7: 01/30/25 05:04 01/30/25 05:04 Labs: Abnormal Lab Results - Last 24 Hours (Table) 01/30/25 01/30/25 Range/Units 05:04 05:04 RBC 3.99 L (4.10-5.20) X 10*6/uL Hgb 9.3 L (12.0-15.0) g/dL Hct 31.2 L (37.2-46.3) % MCV 78.2 L (80.0-97.0) FL MCH 23.3 L (27.0-32.0) pg MCHC 29.8 L (32.0-37.0) g/dL RDW 16.7 H (11.5-14.5) % Potassium 3.0 L (3.5-5.5) mmol/L Est GFR (CKD-EPI) 51 L (>=60) Calcium 8.6 L (8.7-10.3) mg/dL Iron 14 L (50-170) UG/DL % Saturation 5.74 L (12.00-45.00) Transferrin 174.0 L (204.0-354.0) mg/dL Vitamin B12 196.0 L (200.0-944.0) pg/mL Assessment and Plan (1) Colitis Status: Acute Code(s): K52.9 - NONINFECTIVE GASTROENTERITIS AND COLITIS, UNSPECIFIED SNOMED Code(s): 04552399 (2) Leukocytosis Status: Acute Code(s): D72.829 - ELEVATED WHITE BLOOD CELL COUNT, UNSPECIFIED SNOMED Code(s): 602218095 Plan: 1patient presented to the hospital with lower abdominal discomfort in this patient also history of constipation nausea and vomiting concerning for colitis possible infectious etiology/diverticulitis with evidence of any perforation or abscess 2-patient did have abnormal UA obtained from urostomy but no other symptoms to suggest urinary tract infection 3-patient has shown clinical improvement stool for C. difficile is negative she will finish therapy with Ceftin and Flagyl and encouraged increase oral yogurt intake Dictation was produced using [employer] dictation software. please excuse any grammatical, word or spelling errors. Time with Patient: Less than 30
== END 2025-01-30 15:41 | disposition home or self-care (01) | DRG 392 ==
LOC: EC 21:38 → OBSVTOIN 01-26 03:07 → 5NMEDONC 01-26 03:07
PROVIDERS: ADMIT Hospitalist; ATTEND Hospitalist
DX: K52.9 Noninfective gastroenteritis and colitis, unspecified (principal); I48.91 Unspecified atrial fibrillation; G62.9 Polyneuropathy, unspecified; C67.9 Malignant neoplasm of bladder, unspecified; I10 Essential (primary) hypertension; D50.9 Iron deficiency anemia, unspecified; K21.9 Gastro-esophageal reflux disease without esophagitis; E78.5 Hyperlipidemia, unspecified; Z79.899 Other long term (current) drug therapy; Z93.6 Other artificial openings of urinary tract status; Z90.6 Acquired absence of other parts of urinary tract; Z79.82 Long term (current) use of aspirin; Z88.5 Allergy status to narcotic agent; Z88.7 Allergy status to serum and vaccine; Z88.8 Allergy status to other drugs, medicaments and biological substances; Z87.891 Personal history of nicotine dependence; Z90.710 Acquired absence of both cervix and uterus
CPT/HCPCS: 36415; 74177; 80048; 80053; 81001; 82607; 82747; 83540; 83550; 83605; 83735; 84443; 85025; 85027; 87045; 87046; 87493; 96361; 96374; 96375; 96376; 99285

== ENCOUNTER 2025-02-02 15:04 | Inpatient (IN) | payer MEDICARE, OTHER ==
--- NOTE | 2025-02-02 15:45 | ED ---
General Adult HPI - General Chief complaint: Abdominal Pain Stated complaint: abd pain Time Seen by Provider: 02/02/25 15:15 Source: patient Limitations: no limitations - History of Present Illness Initial comments: Dictation was produced using [employer] dictation software. please excuse any grammatical, word or spelling errors. Chief Complaint: 79-year-old female presents to the emergency department abdominal pain History of Present Illness: Patient is an 79-year-old female she has history of bladder cancer and urostomy. Patient recently admitted for 3 days for colitis seen on CT. States that she was discharged yesterday but felt that she was discharged too soon. States that over the last 24 hours she has had persistent cramping to her lower abdomen. Denies any fever chills or night sweats. Patient has not been eating. She states that she has not passing stool or passing gas. The ROS documented in this emergency department record has been reviewed and confirmed by me. Those systems with pertinent positive or negative responses have been documented in the HPI. All other systems are other negative and/or noncontributory. - Related Data Home Medications Medication Instructions Recorded Confirmed Omeprazole [PriLOSEC] 20 mg PO Q48H 02/05/15 01/26/25 Potassium Chloride [K-Tab ER] 10 meq PO DAILY 09/01/16 01/26/25 Furosemide [Lasix] 20 mg PO BID 06/02/20 01/26/25 Meclizine [Antivert] 25 mg PO TID PRN 04/27/23 01/26/25 Gabapentin [Neurontin] 100 mg PO DAILY 09/08/24 01/26/25 Magnesium 250 mg PO DAILY 09/08/24 01/26/25 Propafenone HCl 300 mg PO DAILY 09/08/24 01/26/25 Albuterol Sulfate [Albuterol 2 puff PO RT-Q4H PRN 01/26/25 01/26/25 Sulfate Hfa] Aspirin EC [Ecotrin Low Dose] 81 mg PO DAILY 01/26/25 01/26/25 Calcium Carbonate/Vitamin D3 1 tab PO DAILY 01/26/25 01/26/25 [Calcium 500-Vit D3 5 Mcg (200 Iu)] Dapagliflozin Propanediol [Farxiga] 10 mg PO DAILY 01/26/25 01/26/25 Ibuprofen [Motrin] 600 mg PO BID PRN 01/26/25 01/26/25 Rosuvastatin [Crestor] 10 mg PO DAILY 01/26/25 01/26/25 Previous Rx's Medication Instructions Recorded Metoprolol Tartrate [Lopressor] 25 mg PO BID #60 tab 12/21/16 Cholestyramine (with Sugar) 4 gm PO BID@1000,1800 #14 packet 01/30/25 [Questran Packet] cefuroxime axetiL [Ceftin] 500 mg PO BID-W/MEALS #14 tab 01/30/25 metroNIDAZOLE [Flagyl] 500 mg PO TID #21 tab 01/30/25 Allergies Allergy/AdvReac Type Severity Reaction Status Date / Time ether Allergy Anaphylaxis Verified 02/02/25 15:10 formaldehyde Allergy Anaphylaxis Verified 02/02/25 15:10 tetanus and diphtheria Allergy Unknown Verified 02/02/25 15:10 toxoids [tetanus & diphtheria toxoids] codeine AdvReac Nausea Verified 02/02/25 15:10 Review of Systems ROS Statement: Those systems with pertinent positive or pertinent negative responses have been documented in the HPI. ROS Other: All systems not noted in ROS Statement are negative. Past Medical History Past Medical History: Atrial Fibrillation, Cancer, GERD/Reflux, Hypertension, Osteoarthritis (OA) Additional Past Medical History / Comment(s): bladder cancer with urostomy, Small Bowel Obstruction, vertigo History of Any Multi-Drug Resistant Organisms: None Reported Date of last positivie culture/infection: 04/29/23 MDRO Source:: Urine Past Surgical History: Ablation, Bladder Surgery, Heart Catheterization, Hernia Repair, Hysterectomy, Orthopedic Surgery, Pacemaker, Tonsillectomy Additional Past Surgical History / Comment(s): LEFT HIP SURGERY x 5, GRAFTS AND MARNIE 2015, ablasion CARDIOVERSION, urostomy 10/2010, cataracts 2017 Past Anesthesia/Blood Transfusion Reactions: Previous Problems w/ Anesthesia Additional Past Anesthesia/Blood Transfusion Reaction / Comment(s): asthma attack Type of Cardiac Device: Permanent Pacemaker Device Placement Date:: 2012 Past Psychological History: Anxiety Smoking Status: Former smoker Past Alcohol Use History: Occasional Past Drug Use History: None Reported - Past Family History Mother Family Medical History: Asthma, GERD/Reflux Additional Family Medical History / Comment(s): diverticulitus, glaucoma Father Family Medical History: Hyperlipidemia Additional Family Medical History / Comment(s): stroke, brain tumour General Exam - General Exam Comments Initial Comments: PHYSICAL EXAM: General Impression: Alert and oriented x3, not in acute distress HEENT: Normocephalic atraumatic, extra-ocular movements intact, pupils equal and reactive to light bilaterally, mucous membranes moist. Cardiovascular: Heart regular rate and rhythm Chest: Able to complete full sentences, no retractions, no tachypnea Abdomen: abdomen soft, diffuse palpatory tenderness through the whole abdomen non-distended, no organomegaly Musculoskeletal: Pulses present and equal in all extremities, no peripheral rashad ma Motor: no focal deficits noted Neurological: CN II-XII grossly intact, no focal motor or sensory deficits noted Skin: Intact with no visualized rashes Psych: Normal affect and mood Limitations: no limitations Course Vital Signs 02/02/25 02/02/25 02/02/25 15:06 16:00 18:02 Temperature 98.3 F 97.8 F Pulse Rate 65 66 66 Respiratory 18 20 18 Rate Blood Pressure 125/79 111/60 118/69 O2 Sat by Pulse 95 97 94 L Oximetry EKG Findings - EKG Comments: EKG Findings:: My EKG interpretation: Ventricular rate 65, ventricular paced rhythm, QRS of 169, QTc 472. No IA prolongation, no QTC prolongation, no ST or T-wave changes notedOverall, this EKG is unremarkable Medical Decision Making - Medical Decision Making Was pt. sent in by a medical professional or institution (BETH Ansari, SURGICAL INSTRUMENTS INSPECTOR, urgent care, hospital, or residential...) When possible be specific @ -No Did you speak to anyone other than the patient for history (EMS, parent, family, police, friend...)? What history was obtained from this source @ -No Did you review nursing and triage notes (agree or disagree)? Why? @ -I reviewed and agree with nursing and triage notes Were old charts reviewed (outside hosp., previous admission, EMS record, old EKG, old radiological studies, urgent care reports/EKG's, residential records)? Report findings @ -No old charts were reviewed Differential Diagnosis (chest pain, altered mental status, abdominal pain women, abdominal pain men, vaginal bleeding, musculoskeletal, weakness, fever, dyspnea, syncope, headache, dizziness, GI bleed, back pain, seizure, CVA, palpatations, mental health)? @ -Differential Abdominal Pain Women: Appendicitis, Cholecystitis, diverticulosis, ischemic bowel, pancreatitis, hepatitis, UTI, gastroenteritis, AAA, incarcerated hernia, bowel obstruction, constipation, inflammatory bowel, hepatitis, peptic ulcer disease, splenic infarction, perforated viscus, vulvitis, ovarian torsion, PID, kidney stone, placenta abruption, this is not meant to be an all-inclusive list EKG interpreted by me (3pts min.). @ -See above X-rays interpreted by me (1pt min.). @ -None done CT interpreted by me (1pt min.). @ -CT of the abdomen shows ileus U/S interpreted by me (1pt. min.). @ -None done What testing was considered but not performed or refused? (CT, X-rays, U/S, labs)? Why? @ -None What meds were considered but not given or refused? Why? @ -None Was smoking cessation discussed for >3mins.? @ -No Were there social determinants of health that impacted care today? How? (Homelessness, low income, unemployed, alcoholism, drug addiction, transp ortation, low edu. Level, literacy, decrease access to med. care, assisted, rehab)? @ -No Was there de-escalation of care discussed even if they declined (Discuss DNR or withdrawal of care, Hospice)? DNR status @ -No What co-morbidities impacted this encounter? (DM, HTN, Smoking, COPD, CAD, Cancer, CVA, ARF, Chemo, Hep., AIDS, mental health diagnosis, sleep apnea, morbid obesity)? @ -None Was patient admitted / discharged? Hospital course, mention meds given and route, prescriptions, significant lab abnormalities, going to OR and other pertinent info. @ -79-year-old female presents to the emergency department with abdominal pain. Patient has a tender abdomen concerning for surgical abdomen. Laboratory evaluation obtained. No leukocytosis. Labs otherwise within acceptable limits. CT shows ileus. Patient will be admitted with consultation to general surgery. Patient given IV fluids and analgesics. Did you discuss the management of the patient with other professionals (professionals i.e. , PA, SURGICAL INSTRUMENTS INSPECTOR, lab, RT, psych nurse, community mental health social worker, management trainee marketing, teacher, financial aid officer, field case manager)? Give summary @ -Case discussed with hospitalist for admission Was critical care preformed (if so, how long)? @ -No Undiagnosed new problem with uncertain prognosis? @ -No Drug Therapy requiring intensive monitoring for toxicity (Heparin, Nitro, Insulin, Cardizem)? @ -No Were any procedures done? @ -No Diagnosis/symptom? Acute, or Chronic, or Acute on Chronic? Uncomplicated (without systemic symptoms) or Complicated (systemic symptoms)? @ -Ileus Side effects of treatment? @ -No Exacerbation, Progression, or Severe Exacerbation? @ -No Poses a threat to life or bodily function? How? (Chest pain, USA, CT, pneumonia, PE, COPD, DKA, ARF, appy, cholecystitis, CVA, Diverticulitis, Homicidal, Suicidal, threat to staff... and all critical care pts) @ -yes - Lab Data Result diagrams: 02/02/25 15:45 02/02/25 15:45 Lab Results 02/02/25 02/02/25 Range/Units 15:45 15:45 WBC 10.47 H (4.50-10.00) 10*3/uL RBC 4.42 (4.10-5.20) 10*6/uL Hgb 10.5 L (12.0-15.0) g/dL Hct 33.9 L (37.2-46.3) % MCV 76.7 L (80.0-97.0) fL MCH 23.8 L (27.0-32.0) pg MCHC 31.0 L (32.0-37.0) g/dL Plt Count 370 (140-440) 10*3/uL MPV 9.7 (9.5-12.2) fL Immature Gran % (Auto) 1.4 % Neutrophils % 78.8 % Lymphocytes % 8.5 % Monocytes % 9.0 % Eosinophils % 1.6 % Basophils % 0.7 % Immature Gran # 0.15 H (0.00-0.04) 10*3/uL Neutrophils # 8.25 H (1.80-7.70) 10*3/uL Lymphocytes # 0.89 L (0.90-5.00) 10*3/uL Monocytes # 0.94 (0.20-1.00) 10*3/uL Eosinophils # 0.17 (0.04-0.35) 10*3/uL Basophils # 0.07 (0.00-0.10) 10*3/uL Sodium 136 L (137-145) mmol/L Potassium 4.1 (3.5-5.1) mmol/L Chloride 104 (98-107) mmol/L Carbon Dioxide 19 L (22-30) mmol/L Anion Gap 13 mmol/L BUN 21 H (7-17) mg/dL Creatinine 1.15 H (0.52-1.04) mg/dL Est GFR (CKD-EPI)AfAm 52 (>60 ml/min/1.73 sqM) Est GFR (CKD-EPI)NonAf 45 (>60 ml/min/1.73 sqM) Glucose 91 (74-99) mg/dL Calcium 9.5 (8.4-10.2) mg/dL Total Bilirubin 0.7 (0.2-1.3) mg/dL AST 27 (14-36) U/L ALT 21 (4-34) U/L Alkaline Phosphatase 114 (38-126) U/L Total Protein 6.0 L (6.3-8.2) g/dL Albumin 3.1 L (3.5-5.0) g/dL Disposition Clinical Impression: Ileus Disposition: ADMITTED IP TO THIS [facility] Condition: Fair Referrals: Alberto Koenig DO [Primary Care Provider] - 1-2 days Decision Time: 19:21
[2025-02-02 15:54] LABS: Basophils # (A) 0.07 10*3/uL (0.00-0.10); Basophils % (A) 0.7 %; Eosinophils # (A) 0.17 10*3/uL (0.04-0.35); Eosinophils % (A) 1.6 %; HCT 33.9 % (37.2-46.3); HGB 10.5 g/dL (12.0-15.0); Lymphocytes # (A) 0.89 10*3/uL (0.90-5.00); Lymphocytes % (A) 8.5 %; MCH 23.8 pg (27.0-32.0); MCV 76.7 fL (80.0-97.0); Mean Platelet Volume 9.7 fL (9.5-12.2); Monocytes # (A) 0.94 10*3/uL (0.20-1.00); Neutrophils # (A) 8.25 10*3/uL (1.80-7.70); Neutrophils % (A) 78.8 %; Platelet Count 370 10*3/uL (140-440); RBC 4.42 10*6/uL (4.10-5.20); WBC 10.47 10*3/uL (4.50-10.00)
[2025-02-02] MEDS: SODIUM CHLORIDE 0.9% 1,000 ML IV STA (15:56)
[2025-02-02] MEDS: HYDROmorphone 1 MG/ML 1 ML SYRINGE IVP STA (15:57)
[2025-02-02 16:02] LABS: ALT 21 U/L (4-34); AST 27 U/L (14-36); African American GFR (CKD) 52 (>60 ml/min/1.73 sqM); Albumin 3.1 g/dL (3.5-5.0); Alkaline Phosphatase 114 U/L (38-126); Anion Gap 13 mmol/L; Blood Urea Nitrogen 21 mg/dL (7-17); Calcium 9.5 mg/dL (8.4-10.2); Carbon Dioxide 19 mmol/L (22-30); Chloride 104 mmol/L (98-107); Glucose 91 mg/dL (74-99); Non-African American GFR(CKD) 45 (>60 ml/min/1.73 sqM); Potassium 4.1 mmol/L (3.5-5.1); Sodium 136 mmol/L (137-145); Total Bilirubin 0.7 mg/dL (0.2-1.3)
--- NOTE | 2025-02-02 18:53 | CT ---
EXAMINATION TYPE: CT abdomen pelvis w con DATE OF EXAM: 02/02/2025 5:58 PM COMPARISON: 01/26/2025 CLINICAL INDICATION: Female, 79 years old with history of worsening adominal pain, recent admission f or coli, Abdominal pain, history of colitis and SBOs. TECHNIQUE: Axial images were obtained from above the diaphragm to the pubic rami in the axial plane a t 5 mm thick sections. Reconstructed images are reviewed on the computer in the coronal plane. CONTRAST: 80 mL of Isovue 300. Study performed without Oral Contrast DLP: 1071.1 mGycm, Automated exposure control for dose reduction was used. FINDINGS: Limited CT sections are obtained the lung bases. Mild posterior right lung infiltrate is present. C orrelate for atelectasis. There is a moderately large hiatal hernia present. CT ABDOMEN: Liver: Normal Spleen: Normal Pancreas: Normal Adrenal glands: Left adrenal gland is enlarged 1.6 cm. Gallbladder: Normal Kidneys: Right kidney is atrophic. No masses are evident. There is mild prominence of the left renal collecting system. Left ureter is nondilated No cysts are present. Delayed images were obtained thro ugh the kidneys, which remain unremarkable. Aorta: Vascular calcification is within the aorta. Inferior vena cava: Normal. CT PELVIS: Colon appears dilated. Previous wall thickening of the descending colon has resolved. Dilatation may be less than the prior exam. This extends to the sigmoid colon. Sigmoid colon as visualized is nondil ated. There are some air-fluid levels present. No obvious obstruction is evident. However, beam harde meme artifact does cross this region limiting evaluation. Some distal small bowel loops may have some mild fluid-filled prominence. More proximal small bowel loops and more normal caliber without fluid Appendix: Not identified. Urinary bladder: Not identified. There may be a urostomy in the abdomen. History of cystectomy with d iverting loop ileostomy. Genitourinary structures: Uterus and ovaries are not identified Osseous structures: No suspicious lytic or sclerotic lesions. An old fracture of the right hip. Left hip prosthesis is present. This causes beam hardening artifact lower pelvis IMPRESSION: 1. Improved appearance of the dilated colon and fluid-filled small bowel loops. Previous descending colon colitis may be resolved. Some residual ileus however may remain present. [facility], , 02/02/2025 6:51 PM
[2025-02-02] MEDS ORDERED: NALOXONE 0.4 MG/ML 1 ML VIAL IV PRN (19:18)
[2025-02-02] MEDS: SODIUM CHLORIDE 0.9% 1,000 ML IV SCH (19:27)
[2025-02-02] MEDS: HYDROmorphone 1 MG/ML 1 ML SYRINGE IVP PRN (19:39)
[2025-02-03] MEDS: HYDROmorphone 2 MG/ML 1 ML SYRINGE IVP PRN (00:51)
--- NOTE | 2025-02-03 14:22 | P.GSCN ---
History of Present Illness Consult date: 02/03/25 History of present illness: CHIEF COMPLAINT: Abdominal pain HISTORY OF PRESENT ILLNESS: This is a 79-year-old female with a known history of bladder cancer with urostomy that was placed 12 years ago. She was just in the hospital 3 days ago for colitis. Patient reports that she had been having diarrhea. That has now resolved. And it has been a few days since her last bowel movement. She denies any flatus. She complains of pain across the lower abdomen. She has never had a colonoscopy. CT scan abdomen pelvis had reported improvement in the colitis and some residual ileus noted. Other past surgical history does include a hysterectomy. PAST MEDICAL HISTORY: Atrial fibrillation, bladder cancer with urostomy, GERD, hypertension, osteoarthritis, small bowel obstruction PAST SURGICAL HISTORY: Ablation, Bladder Surgery, Heart Catheterization, Hernia Repair, Hysterectomy, Orthopedic Surgery, Pacemaker, Tonsillectomy, LEFT HIP SURGERY x 5, GRAFTS AND MARNIE 2015, ablasion CARDIOVERSION, urostomy 10/2010, cataracts 2018 MEDICATIONS: See below ALLERGIES: See below SOCIAL HISTORY: No illicit drug use. REVIEW OF SYSTEMS: CONSTITUTIONAL: Denies fever or chills. HEENT: Denies blurred vision, vision changes, or eye pain. Denies hemoptysis CARDIOVASCULAR: Denies chest pain or pressure. RESPIRATORY: No shortness of breath. GASTROINTESTINAL: See HPI for pertinent findings HEMATOLOGIC: Denies bleeding disorders. GENITOURINARY: Denies any blood in urine or increased urinary frequency. SKIN: Denies pruitis. Denies rash. PHYSICAL EXAM: VITAL SIGNS: Reviewed GENERAL: Well-developed in no acute distress. HEENT: No sclera icterus. Extraocular movements grossly intact. Moist buccal mucosa. Head is atraumatic, normocephalic. No nasal drainage. ABDOMEN: Soft. Nondistended. Urostomy noted on the right side the abdomen. Tenderness palpation across the lower mid abdomen. No rebound or guarding noted. NEUROLOGIC: Alert and oriented. Cranial nerves II through XII grossly intact. LABORATORY DATA: WBC 10.47 Hgb 10.5 platelets 370 Sodium is 136 potassium 4.1 creatinine 1.15 LFTs normal IMAGING: CT scan abdomen pelvis reported improved appearance of the dilated colon and fluid-filled small bowel loops. Previous descending colon colitis may be resolved. Some residual ileus however may remain present. ASSESSMENT: 1. Abdominal ileus PLAN: - Advance diet to clear liquids - Add Reglan IV every 6 hours scheduled - Add Colace - Encourage patient to increase activity level Physician Tenter Feeder note has been reviewed by physician. Signing provider agrees with the documented findings, assessment, and plan of care. Past Medical History Past Medical History: Atrial Fibrillation, Cancer, GERD/Reflux, Hypertension, Osteoarthritis (OA) Additional Past Medical History / Comment(s): bladder cancer with urostomy, Small Bowel Obstruction, vertigo History of Any Multi-Drug Resistant Organisms: None Reported Year Discovered:: 04/29/23 MDRO Source:: Urine Past Surgical History: Ablation, Bladder Surgery, Heart Catheterization, Hernia Repair, Hysterectomy, Orthopedic Surgery, Pacemaker, Tonsillectomy Additional Past Surgical History / Comment(s): LEFT HIP SURGERY x 5, GRAFTS AND MARNIE 2015, ablasion CARDIOVERSION, urostomy 10/2010, cataracts 2017 Past Anesthesia/Blood Transfusion Reactions: Previous Problems w/ Anesthesia Additional Past Anesthesia/Blood Transfusion Reaction / Comm: asthma attack Type of Cardiac Device: Permanent Pacemaker Device Placement Date:: 2012 Past Psychological History: Anxiety Smoking Status: Former smoker Past Alcohol Use History: Occasional Past Drug Use History: None Reported - Past Family History Mother Family Medical History: Asthma, GERD/Reflux Additional Family Medical History / Comment(s): diverticulitus, glaucoma Father Family Medical History: Hyperlipidemia Additional Family Medical History / Comment(s): stroke, brain tumour Medications and Allergies Home Medications Medication Instructions Recorded Confirmed Type Omeprazole [PriLOSEC] 20 mg PO Q48H 02/05/15 02/02/25 History Potassium Chloride [K-Tab ER] 10 meq PO DAILY 09/01/16 02/02/25 History Metoprolol Tartrate [Lopressor] 25 mg PO BID #60 tab 12/21/16 02/02/25 Rx Furosemide [Lasix] 20 mg PO BID 06/02/20 02/02/25 History Meclizine [Antivert] 25 mg PO TID PRN 04/27/23 02/02/25 History Gabapentin [Neurontin] 100 mg PO DAILY 09/08/24 02/02/25 History Magnesium 250 mg PO DAILY 09/08/24 02/02/25 History Propafenone HCl 300 mg PO DAILY 09/08/24 02/02/25 History Albuterol Sulfate [Albuterol 2 puff PO RT-Q4H PRN 01/26/25 02/02/25 History Sulfate Hfa] Aspirin EC [Ecotrin Low Dose] 81 mg PO DAILY 01/26/25 02/02/25 History Calcium Carbonate/Vitamin D3 1 tab PO DAILY 01/26/25 02/02/25 History [Calcium 500-Vit D3 5 Mcg (200 Iu)] Dapagliflozin Propanediol [Farxiga] 10 mg PO DAILY 01/26/25 02/02/25 History Ibuprofen [Motrin] 600 mg PO BID PRN 01/26/25 02/02/25 History Rosuvastatin [Crestor] 10 mg PO DAILY 01/26/25 02/02/25 History Cholestyramine (with Sugar) 4 gm PO BID@1000,1800 #14 packet 01/30/25 02/02/25 Rx [Questran Packet] cefuroxime axetiL [Ceftin] 500 mg PO BID-W/MEALS #14 tab 01/30/25 02/02/25 Rx metroNIDAZOLE [Flagyl] 500 mg PO TID #21 tab 01/30/25 02/02/25 Rx Allergies Allergy/AdvReac Type Severity Reaction Status Date / Time ether Allergy Anaphylaxis Verified 02/02/25 20:25 formaldehyde Allergy Anaphylaxis Verified 02/02/25 20:25 tetanus and diphtheria Allergy Unknown Verified 02/02/25 20:25 toxoids [tetanus & diphtheria toxoids] codeine AdvReac Nausea Verified 02/02/25 20:25 Surgical - Exam Vital Signs Temp Pulse Resp BP Pulse Ox 98.3 F 65 18 125/79 95 02/02/25 15:06 02/02/25 15:06 02/02/25 15:06 02/02/25 15:06 02/02/25 15:06 Results - Labs 02/02/25 15:45 02/02/25 15:45 Abnormal Lab Results - Last 24 Hours (Table) 02/02/25 02/02/25 Range/Units 15:45 15:45 WBC 10.47 H (4.50-10.00) 10*3/uL Hgb 10.5 L (12.0-15.0) g/dL Hct 33.9 L (37.2-46.3) % MCV 76.7 L (80.0-97.0) fL MCH 23.8 L (27.0-32.0) pg MCHC 31.0 L (32.0-37.0) g/dL Immature Gran # 0.15 H (0.00-0.04) 10*3/uL Neutrophils # 8.25 H (1.80-7.70) 10*3/uL Lymphocytes # 0.89 L (0.90-5.00) 10*3/uL Sodium 136 L (137-145) mmol/L Carbon Dioxide 19 L (22-30) mmol/L BUN 21 H (7-17) mg/dL Creatinine 1.15 H (0.52-1.04) mg/dL Total Protein 6.0 L (6.3-8.2) g/dL Albumin 3.1 L (3.5-5.0) g/dL Diabetes panel 02/02/25 Range/Units 15:45 Sodium 136 L (137-145) mmol/L Potassium 4.1 (3.5-5.1) mmol/L Chloride 104 (98-107) mmol/L Carbon Dioxide 19 L (22-30) mmol/L BUN 21 H (7-17) mg/dL Creatinine 1.15 H (0.52-1.04) mg/dL Glucose 91 (74-99) mg/dL Calcium 9.5 (8.4-10.2) mg/dL AST 27 (14-36) U/L ALT 21 (4-34) U/L Alkaline Phosphatase 114 (38-126) U/L Total Protein 6.0 L (6.3-8.2) g/dL Albumin 3.1 L (3.5-5.0) g/dL Calcium panel 02/02/25 Range/Units 15:45 Calcium 9.5 (8.4-10.2) mg/dL Albumin 3.1 L (3.5-5.0) g/dL Pituitary panel 02/02/25 Range/Units 15:45 Sodium 136 L (137-145) mmol/L Potassium 4.1 (3.5-5.1) mmol/L Chloride 104 (98-107) mmol/L Carbon Dioxide 19 L (22-30) mmol/L BUN 21 H (7-17) mg/dL Creatinine 1.15 H (0.52-1.04) mg/dL Glucose 91 (74-99) mg/dL Calcium 9.5 (8.4-10.2) mg/dL Adrenal panel 02/02/25 Range/Units 15:45 Sodium 136 L (137-145) mmol/L Potassium 4.1 (3.5-5.1) mmol/L Chloride 104 (98-107) mmol/L Carbon Dioxide 19 L (22-30) mmol/L BUN 21 H (7-17) mg/dL Creatinine 1.15 H (0.52-1.04) mg/dL Glucose 91 (74-99) mg/dL Calcium 9.5 (8.4-10.2) mg/dL Total Bilirubin 0.7 (0.2-1.3) mg/dL AST 27 (14-36) U/L ALT 21 (4-34) U/L Alkaline Phosphatase 114 (38-126) U/L Total Protein 6.0 L (6.3-8.2) g/dL Albumin 3.1 L (3.5-5.0) g/dL
[2025-02-03] MEDS: METOCLOPRAMIDE 5 MG/ML 2 ML VIAL IVP SCH (15:31)
[2025-02-03] MEDS: DOCUSATE 100 MG CAP PO SCH (20:58)
[2025-02-03] MEDS ORDERED: MECLIZINE 25 MG TAB PO PRN (21:14)
[2025-02-03] MEDS: ONDANSETRON 4 MG/2 ML VIAL IVP PRN (22:08)
[2025-02-03] MEDS: metroNIDAZOLE-NS PMX 500 MG in SALINE 1 100ML.BAG IVPB SCH (22:09)
[2025-02-04] MEDS: ATORVASTATIN 20 MG TAB PO SCH (09:29)
[2025-02-04] MEDS: MAGNESIUM OXIDE 400 MG TAB PO SCH (09:30)
[2025-02-04] MEDS: DAPAGLIFLOZIN PROPANEDIOL 10 MG TABLET PO SCH (09:30)
[2025-02-04] MEDS: FUROSEMIDE 20 MG TAB PO SCH (09:30)
[2025-02-04] MEDS: PROPAFENONE 150 MG TAB PO SCH (09:30)
[2025-02-04] MEDS: POTASSIUM CHLORIDE ER 10 MEQ TAB.ER.PRT PO SCH (09:30)
[2025-02-04] MEDS: GABAPENTIN 100 MG CAP PO SCH (09:30)
[2025-02-04] MEDS: CALCIUM CARB-VIT D 500 MG-5 MCG TAB PO SCH (09:30)
[2025-02-04 13:03] LABS: HCT 30.8 % (37.2-46.3); HGB 9.2 g/dL (12.0-15.0); MCH 23.8 pg (27.0-32.0); MCHC 29.9 g/dL (32.0-37.0); MCV 79.8 fL (80.0-97.0); Mean Platelet Volume 9.3 fL (9.5-12.2); Platelet Count 358 10*3/uL (140-440); RBC 3.86 10*6/uL (4.10-5.20); RDW 18.1 % (11.5-14.5); WBC 9.17 10*3/uL (4.50-10.00)
[2025-02-04] MEDS: PANTOPRAZOLE 40 MG/10 ML VIAL IVP SCH (13:05)
[2025-02-04 13:14] LABS: African American GFR (CKD) 84 (>60 ml/min/1.73 sqM); Anion Gap 10 mmol/L; Blood Urea Nitrogen 19 mg/dL (7-17); Calcium 9.4 mg/dL (8.4-10.2); Carbon Dioxide 18 mmol/L (22-30); Chloride 112 mmol/L (98-107); Glucose 89 mg/dL (74-99); Non-African American GFR(CKD) 73 (>60 ml/min/1.73 sqM); Potassium 4.3 mmol/L (3.5-5.1); Sodium 140 mmol/L (137-145)
[2025-02-04 15:02] LABS: Band Neutrophils % 12 %; Eosinophils # (M) 0.09 k/uL (0-0.7); Lymphocytes # (M) 1.38 k/uL (1.0-4.8); Monocytes # (M) 0.37 k/uL (0-1.0); Neutrophils # (M) 7.51 k/uL (1.3-7.7); Neutrophils % (M) 70 %; Nucleated Red Blood Cells 0 /100 WBC (0-0); Total Cells Counted 200
[2025-02-04 15:04] LABS: Anisocytosis (M) Present
[2025-02-05 05:13] LABS: Glucose,Whole Blood 103 mg/dL (70-110)
[2025-02-05 05:37] LABS: Glucose,Whole Blood 110 mg/dL (70-110)
[2025-02-05] MEDS: DILTIAZEM 5 MG/ML 5 ML VIAL IVP STA (05:59)
[2025-02-05] MEDS: DILTIAZEM 125 MG in DEXTROSE 5% IN WATER 100 ML IV SCH (06:02)
[2025-02-05 09:55] LABS: HCT 34.7 % (37.2-46.3); HGB 10.1 g/dL (12.0-15.0); MCH 23.3 pg (27.0-32.0); MCHC 29.1 g/dL (32.0-37.0); Mean Platelet Volume 9.4 FL (9.5-12.2); NRBC Per 100 WBC 0 X 10*3/uL (0.00-0.01); Platelet Count 388 X 10*3/uL (140-440); RBC 4.34 X 10*6/uL (4.10-5.20); RDW 18.5 % (11.5-14.5); WBC 11.77 X 10*3/uL (4.50-10.00)
--- NOTE | 2025-02-05 10:01 | P.HPIM ---
History of Present Illness H&P Date: 02/03/25 Chief Complaint: Abdominal pain 79-year-old female, history of hypertension, hyperlipidemia, atrial fibrillation, neuropathy, GERD, she has history of bladder cancer and urostomy. Patient recently admitted for 3 days for colitis seen on CT. States that she was discharged yesterday but felt that she was discharged too soon. States that over the last 24 hours she has had persistent cramping to her lower abdomen. Denies any fever chills or night sweats. Patient has not been eating. She states that she has not passing stool or passing gas. Blood work completed in ED reveals a WBC of 10.4, hemoglobin of 10.5 and platelet count of 370, sodium 136, potassium of 4.1, BUN/creatinine of 21/1.15 CT of the abdomen reveals improved appearance of dilated colon and fluid-filled small bowel loops. Previous descending colon colitis may be resolved. Some residual ileus may be present -Patient is admitted to the hospital for further management of ileus and surgery evaluation Review of Systems REVIEW OF SYSTEMS: CONSTITUTIONAL: No fever, no malaise, no fatigue. HEENT: No recent visual problems or hearing problems. Denied any sore throat. CARDIOVASCULAR: No chest pain, orthopnea, PND, no palpitations, no syncope. PULMONARY: No shortness of breath, no cough, no hemoptysis. GASTROINTESTINAL: No diarrhea, no nausea, no vomiting, no abdominal pain. NEUROLOGICAL: No headaches, no weakness, no numbness. HEMATOLOGICAL: Denies any bleeding or petechiae. GENITOURINARY: Denies any burning micturition, frequency, or urgency. MUSCULOSKELETAL/RHEUMATOLOGICAL: Denies any joint pain, swelling, or any muscle pain. ENDOCRINE: Denies any polyuria or polydipsia. The rest of the 14-point review of systems is negative. Past Medical History Past Medical History: Atrial Fibrillation, Cancer, GERD/Reflux, Hypertension, Osteoarthritis (OA) Additional Past Medical History / Comment(s): bladder cancer with urostomy, Small Bowel Obstruction, vertigo History of Any Multi-Drug Resistant Organisms: None Reported Date of last positivie culture/infection: 04/29/23 MDRO Source:: Urine Past Surgical History: Ablation, Bladder Surgery, Heart Catheterization, Hernia Repair, Hysterectomy, Orthopedic Surgery, Pacemaker, Tonsillectomy Additional Past Surgical History / Comment(s): LEFT HIP SURGERY x 5, GRAFTS AND MARNIE 2016, ablasion CARDIOVERSION, urostomy 10/2010, cataracts 2018 Past Anesthesia/Blood Transfusion Reactions: Previous Problems w/ Anesthesia Additional Past Anesthesia/Blood Transfusion Reaction / Comment(s): asthma attack Type of Cardiac Device: Permanent Pacemaker Device Placement Date:: 2012 Past Psychological History: Anxiety Smoking Status: Former smoker Past Alcohol Use History: Occasional Past Drug Use History: None Reported - Past Family History Mother Family Medical History: Asthma, GERD/Reflux Additional Family Medical History / Comment(s): diverticulitus, glaucoma Father Family Medical History: Hyperlipidemia Additional Family Medical History / Comment(s): stroke, brain tumour Medications and Allergies Home Medications Medication Instructions Recorded Confirmed Type Omeprazole [PriLOSEC] 20 mg PO Q48H 02/05/15 02/02/25 History Potassium Chloride [K-Tab ER] 10 meq PO DAILY 09/01/16 02/02/25 History Metoprolol Tartrate [Lopressor] 25 mg PO BID #60 tab 12/21/16 02/02/25 Rx Furosemide [Lasix] 20 mg PO BID 06/02/20 02/02/25 History Meclizine [Antivert] 25 mg PO TID PRN 04/27/23 02/02/25 History Gabapentin [Neurontin] 100 mg PO DAILY 09/08/24 02/02/25 History Magnesium 250 mg PO DAILY 09/08/24 02/02/25 History Propafenone HCl 300 mg PO DAILY 09/08/24 02/02/25 History Albuterol Sulfate [Albuterol 2 puff PO RT-Q4H PRN 01/26/25 02/02/25 History Sulfate Hfa] Aspirin EC [Ecotrin Low Dose] 81 mg PO DAILY 01/26/25 02/02/25 History Calcium Carbonate/Vitamin D3 1 tab PO DAILY 01/26/25 02/02/25 History [Calcium 500-Vit D3 5 Mcg (200 Iu)] Dapagliflozin Propanediol [Farxiga] 10 mg PO DAILY 01/26/25 02/02/25 History Ibuprofen [Motrin] 600 mg PO BID PRN 01/26/25 02/02/25 History Rosuvastatin [Crestor] 10 mg PO DAILY 01/26/25 02/02/25 History Cholestyramine (with Sugar) 4 gm PO BID@1000,1800 #14 packet 01/30/25 02/02/25 Rx [Questran Packet] cefuroxime axetiL [Ceftin] 500 mg PO BID-W/MEALS #14 tab 01/30/25 02/02/25 Rx metroNIDAZOLE [Flagyl] 500 mg PO TID #21 tab 01/30/25 02/02/25 Rx Allergies Allergy/AdvReac Type Severity Reaction Status Date / Time ether Allergy Anaphylaxis Verified 02/02/25 20:25 formaldehyde Allergy Anaphylaxis Verified 02/02/25 20:25 tetanus and diphtheria Allergy Unknown Verified 02/02/25 20:25 toxoids [tetanus & diphtheria toxoids] codeine AdvReac Nausea Verified 02/02/25 20:25 Physical Exam Vitals: Vital Signs Temp Pulse Pulse Resp BP BP Pulse Ox 02/03/25 07:31 99.7 F H 75 16 126/71 92 L 02/03/25 00:34 97.6 F 66 16 112/68 91 L 02/02/25 23:03 98.0 F 72 18 147/71 92 L 02/02/25 22:47 98.1 F 70 18 109/64 95 02/02/25 21:46 70 18 113/60 95 02/02/25 19:45 98.3 F 70 18 128/65 95 02/02/25 18:02 97.8 F 66 18 118/69 94 L 02/02/25 16:00 66 20 111/60 97 02/02/25 15:06 98.3 F 65 18 125/79 95 Intake and Output 02/02/25 02/03/25 02/03/25 22:59 06:59 14:59 Output Total 600 Balance -600 Output: Urine 600 Other: Weight 77.111 kg GENERAL: Resting comfortably in bed. CARDIOVASCULAR: S1 and S2 present. No murmurs, rubs, or gallops. PULMONARY: Chest is clear to auscultation, no wheezing, rhonchi, or crackles. ABDOMEN: Soft, mild suprapubic tenderness, nondistended. No palpable organomegaly. Urostomy bag present. MUSCULOSKELETAL: No apparent joint swelling and deformities. EXTREMITIES: No apparent cyanosis, clubbing. Lipedema. No pitting edema NEUROLOGICAL: Alert and oriented. Gross neurological examination with no apparent focal deficits. SKIN: No apparent rashes. Results CBC & Chem 7: 02/04/25 12:21 02/04/25 12:21 Labs: Abnormal Lab Results - Last 24 Hours (Table) 02/02/25 02/02/25 Range/Units 15:45 15:45 WBC 10.47 H (4.50-10.00) 10*3/uL Hgb 10.5 L (12.0-15.0) g/dL Hct 33.9 L (37.2-46.3) % MCV 76.7 L (80.0-97.0) fL MCH 23.8 L (27.0-32.0) pg MCHC 31.0 L (32.0-37.0) g/dL Immature Gran # 0.15 H (0.00-0.04) 10*3/uL Neutrophils # 8.25 H (1.80-7.70) 10*3/uL Lymphocytes # 0.89 L (0.90-5.00) 10*3/uL Sodium 136 L (137-145) mmol/L Carbon Dioxide 19 L (22-30) mmol/L BUN 21 H (7-17) mg/dL Creatinine 1.15 H (0.52-1.04) mg/dL Total Protein 6.0 L (6.3-8.2) g/dL Albumin 3.1 L (3.5-5.0) g/dL Assessment and Plan Assessment: 1. Abdominal ileus/colitis CT scan abdomen pelvis reported improved appearance of the dilated colon and fluid-filled small bowel loops. Previous descending colon colitis may be resolved. Some residual ileus however may remain present. - Patient has been evaluated by general surgery and is recommended to advance diet to clear liquid; Reglan IV every 6 hours; Colace is added -Increase activity - Patient remains on IV Rocephin 2. Hypertension; metoprolol 25 mg twice daily 3. Hyperlipidemia; Lipitor 20 mg daily; Crestor 10 mg daily 4. Atrial fibrillation; propafenone 300 mg daily; metoprolol 25 mg twice daily 5. Neuropathy; Neurontin 100 mg daily 6. History of bladder cancer with urostomy DVT prophylaxis SCDs/subcu heparin CODE STATUS; full code
--- NOTE | 2025-02-05 10:03 | P.PN ---
Subjective Progress Note Date: 02/04/25 79-year-old female, history of hypertension, hyperlipidemia, atrial fibrillation, neuropathy, GERD, she has history of bladder cancer and urostomy. Patient recently admitted for 3 days for colitis seen on CT. States that she was discharged yesterday but felt that she was discharged too soon. States that over the last 24 hours she has had persistent cramping to her lower abdomen. Denies any fever chills or night sweats. Patient has not been eating. She states that she has not passing stool or passing gas. Blood work completed in ED reveals a WBC of 10.4, hemoglobin of 10.5 and platelet count of 370, sodium 136, potassium of 4.1, BUN/creatinine of 21/1.15 CT of the abdomen reveals improved appearance of dilated colon and fluid-filled small bowel loops. Previous descending colon colitis may be resolved. Some residual ileus may be present -Patient is admitted to the hospital for further management of ileus and surgery evaluation --Reports improvement in abdominal pain; continues to complain of persistent nausea and is refusing to eat - Patient is on scheduled Reglan Objective - Vital Signs Vital signs: Vital Signs Temp 98.1 F 02/04/25 07:01 Pulse 96 02/04/25 07:01 Resp 18 02/04/25 07:01 BP 118/67 02/04/25 07:01 Pulse Ox 92 L 02/04/25 07:01 FiO2 Intake & Output 02/03/25 02/04/25 02/04/25 18:59 06:59 18:59 Intake Total 600 540 Output Total 600 Balance 0 540 Intake: Intake, IV Titration 600 Amount Sodium Chloride 0.9% 1, 600 000 ml @ 100 mls/hr IV . Q10H [facility] Rx#:[id number] Oral 540 Output: Urine 600 Other: Voiding Method Ileal Conduit (Right) Ileal Conduit (Right) # Voids 525 - Exam GENERAL: Resting comfortably in bed. CARDIOVASCULAR: S1 and S2 present. No murmurs, rubs, or gallops. PULMONARY: Chest is clear to auscultation, no wheezing, rhonchi, or crackles. ABDOMEN: Soft, mild suprapubic tenderness, nondistended. No palpable organomegaly. Urostomy bag present. MUSCULOSKELETAL: No apparent joint swelling and deformities. EXTREMITIES: No apparent cyanosis, clubbing. Lipedema. No pitting edema NEUROLOGICAL: Alert and oriented. Gross neurological examination with no apparent focal deficits. SKIN: No apparent rashes. - Labs CBC & Chem 7: 02/05/25 06:25 02/04/25 12:21 Assessment and Plan Assessment: 1. Abdominal ileus/colitis CT scan abdomen pelvis reported improved appearance of the dilated colon and fluid-filled small bowel loops. Previous descending colon colitis may be resolved. Some residual ileus however may remain present. - Patient has been evaluated by general surgery and is recommended to advance diet to clear liquid; Reglan IV every 6 hours; Colace is added -Increase activity - Patient remains on IV Rocephin 2. Hypertension; metoprolol 25 mg twice daily 3. Hyperlipidemia; Lipitor 20 mg daily; Crestor 10 mg daily 4. Atrial fibrillation; propafenone 300 mg daily; metoprolol 25 mg twice daily 5. Neuropathy; Neurontin 100 mg daily 6. History of bladder cancer with urostomy DVT prophylaxis SCDs/subcu heparin CODE STATUS; full code
[2025-02-05 10:07] LABS: BUN/Creat Ratio 21.75 Ratio (12.00-20.00); Blood Urea Nitrogen 17.4 mg/dL (9.0-27.0); Carbon Dioxide 17.7 mmol/L (21.6-31.8); Chloride 114 mmol/L (96-109); Glucose 106 mg/dL (70-110); Potassium 4.2 mmol/L (3.5-5.5); Sodium 142 mmol/L (135-145)
--- NOTE | 2025-02-05 10:24 | P.PN ---
Subjective Progress Note Date: 02/05/25 The patient was transferred to the ICU as 3 S. overflow last night due to atrial fibrillation with rapid ventricular rate. Patient states that her nausea has improved. She has no complaints of abdominal pain. On exam vital signs appear stable. Abdomen is soft there is no significant tenderness. Resolving ileus. Patient to have her diet advanced as she tolerates it. She will continue to receive supportive care. Objective - Vital Signs Vital signs: Vital Signs Temp 98.9 F 02/05/25 05:10 Pulse 142 H 02/05/25 05:10 Resp 16 02/05/25 00:54 BP 123/84 02/05/25 05:10 Pulse Ox 93 L 02/05/25 05:10 FiO2 Intake & Output 02/04/25 02/05/25 02/05/25 18:59 06:59 18:59 Output Total 600 Balance -600 Output: Urine 600 Other: Voiding Method Ileal Conduit (Right) Ileal Conduit (Right) # Bowel Movements 1 - Labs CBC & Chem 7: 02/05/25 06:25 02/05/25 06:25 Labs: Abnormal Lab Results - Last 24 Hours (Table) 02/04/25 02/04/25 02/05/25 Range/Units 12:21 12:21 06:25 WBC 11.77 H (4.50-10.00) X 10*3/uL RBC 3.86 L (4.10-5.20) 10*6/uL Hgb 9.2 L 10.1 L (12.0-15.0) g/dL Hct 30.8 L 34.7 L (37.2-46.3) % MCV 79.8 L (80.0-97.0) fL MCH 23.8 L 23.3 L (27.0-32.0) pg MCHC 29.9 L 29.1 L (32.0-37.0) g/dL RDW 18.1 H 18.5 H (11.5-14.5) % MPV 9.3 L 9.4 L (9.5-12.2) fL Immature Gran # 0.05 H (0.00-0.04) 10*3/uL Chloride 112 H (98-107) mmol/L Carbon Dioxide 18 L (22-30) mmol/L BUN 19 H (7-17) mg/dL BUN/Creatinine Ratio (12.00-20.00) Ratio // Range/Units 06:25 WBC (4.50-10.00) X 10*3/uL RBC (4.10-5.20) 10*6/uL Hgb (12.0-15.0) g/dL Hct (37.2-46.3) % MCV (80.0-97.0) fL MCH (27.0-32.0) pg MCHC (32.0-37.0) g/dL RDW (11.5-14.5) % MPV (9.5-12.2) fL Immature Gran # (0.00-0.04) 10*3/uL Chloride 114 H (98-107) mmol/L Carbon Dioxide 17.7 L (22-30) mmol/L BUN (7-17) mg/dL BUN/Creatinine Ratio 21.75 H (12.00-20.00) Ratio
[2025-02-05 11:18] LABS: Basophils # (A) 0.04 X 10*3/uL (0.00-0.10); Basophils % (A) 0.3 %; Eosinophils # (A) 0.07 X 10*3/uL (0.04-0.35); Eosinophils % (A) 0.6 %; Lymphocytes # (A) 0.61 X 10*3/uL (0.90-5.00); Lymphocytes % (A) 5.2 %; Monocytes # (A) 0.95 X 10*3/uL (0.20-1.00); Monocytes % (A) 8.1 %; Neutrophils # (A) 10.02 X 10*3/uL (1.80-7.70); Neutrophils % (A) 85.1 %; RBC Morphology Normal (Normal)
--- NOTE | 2025-02-05 16:38 | P.CRDCN ---
History of Present Illness Consult date: 02/05/25 History of present illness: HPI: The patient, an 79-year-old female with a history of hypertension, dyslipidemia, SVT status post ablation, neuropathy, GERD, bladder cancer, and urostomy, was admitted on 01/2025 for abdominal discomfort and was diagnosed with colitis and a possible small bowel obstruction. She was discharged on 02/04/2025 but returned with worsening abdominal cramping and discomfort. On readmission, she was found to be in atrial fibrillation with RVR. A CT of the abdomen and chest revealed a dilated colon, fluid-filled small bowel loops, descending colon colitis, and residual ileus. She was admitted to the ICU for possible surgical management but is currently being managed conservatively with supportive care, tolerating a pure full liquid diet, and passing gas. No surgical intervention is planned at this time. Pertinent Vitals: Admission BP 134/65, HR 92. Pertinent cardiac Labs: 01/2025: Hb 10.5, WBC 10.4, BUN 21, Vision Teacher 1.15 - Repeat hydration: Vision Teacher 0.8, BUN 17. Cardiac home meds: Aspirin, Farxiga, Lasix 20 mg BID, Metoprolol 25 mg BID, Propafenone 300 mg daily. Pertinent cardiac testing: - 01/2025: ECG showed atrial fibrillation with ventricular response. Telemetry shows atrial fibrillation with RVR with heart rate around 124 bpm REVIEW OF SYSTEMS: 14 point review of system is negative except what is mentioned above in HPI. PHYSICAL EXAMINATION: Neck: Brisk carotid upstroke, no jugular venous distention. Lungs: Clear to auscultation. Heart: Irregularly irregular pulse, S1-S2, no murmur or rub. Abdomen: Soft, nontender, positive bowel sounds. Extremities: Swelling in bilateral extremity, appears to be chronic Neuro: Alert, oriented, no focal deficits. Detailed neuro exam was not performed. ASSESSMENT: # Atrial fibrillation with RVR, likely new onset 01/2025, [id number] score 3 # Partial small bowel obstruction with ileus. # Descending colon colitis. # Hypertension. # History of SVT, status post ablation. # Sick sinus syndrome, status post PPM. # Dyslipidemia. # Bladder cancer with urostomy. PLAN: # Obtain updated echocardiogram. # Continue diltiazem drip at 5 mg/hr. # Increase Metoprolol to 50 mg BID. Continue Propafenone 300 mg daily. # 1 dose of magnesium sulfate 1 g # Obtain NT-proBNP lipid HbA1c and TSH levels # Discontinue aspirin, start Eliquis 5 mg BID. If surgical intervention is needed, discontinue Eliquis 48 hours before surgery. # Obtain PPM interrogation, to see if pacemaker setting changes needed in setting of atrial fibrillation and how much A-fib burden there is. Obtain cardiology records from the office Past Medical History Past Medical History: Atrial Fibrillation, Cancer, GERD/Reflux, Hypertension, Osteoarthritis (OA) Additional Past Medical History / Comment(s): bladder cancer with urostomy, Small Bowel Obstruction, vertigo History of Any Multi-Drug Resistant Organisms: None Reported Date of last positivie culture/infection: 04/29/23 MDRO Source:: Urine Past Surgical History: Ablation, Bladder Surgery, Heart Catheterization, Hernia Repair, Hysterectomy, Orthopedic Surgery, Pacemaker, Tonsillectomy Additional Past Surgical History / Comment(s): LEFT HIP SURGERY x 5, GRAFTS AND MARNIE 2015, ablasion CARDIOVERSION, urostomy 10/2010, cataracts 2017 Past Anesthesia/Blood Transfusion Reactions: Previous Problems w/ Anesthesia Additional Past Anesthesia/Blood Transfusion Reaction / Comment(s): asthma attack Type of Cardiac Device: Permanent Pacemaker Device Placement Date:: 2012 Past Psychological History: Anxiety Smoking Status: Former smoker Past Alcohol Use History: Occasional Past Drug Use History: None Reported - Past Family History Mother Family Medical History: Asthma, GERD/Reflux Additional Family Medical History / Comment(s): diverticulitus, glaucoma Father Family Medical History: Hyperlipidemia Additional Family Medical History / Comment(s): stroke, brain tumour Medications and Allergies Home Medications Medication Instructions Recorded Confirmed Type Omeprazole [PriLOSEC] 20 mg PO Q48H 02/05/15 02/02/25 History Potassium Chloride [K-Tab ER] 10 meq PO DAILY 09/01/16 02/02/25 History Metoprolol Tartrate [Lopressor] 25 mg PO BID #60 tab 12/21/16 02/02/25 Rx Furosemide [Lasix] 20 mg PO BID 06/02/20 02/02/25 History Meclizine [Antivert] 25 mg PO TID PRN 04/27/23 02/02/25 History Gabapentin [Neurontin] 100 mg PO DAILY 09/08/24 02/02/25 History Magnesium 250 mg PO DAILY 09/08/24 02/02/25 History Propafenone HCl 300 mg PO DAILY 09/08/24 02/02/25 History Albuterol Sulfate [Albuterol 2 puff PO RT-Q4H PRN 01/26/25 02/02/25 History Sulfate Hfa] Aspirin EC [Ecotrin Low Dose] 81 mg PO DAILY 01/26/25 02/02/25 History Calcium Carbonate/Vitamin D3 1 tab PO DAILY 01/26/25 02/02/25 History [Calcium 500-Vit D3 5 Mcg (200 Iu)] Dapagliflozin Propanediol [Farxiga] 10 mg PO DAILY 01/26/25 02/02/25 History Ibuprofen [Motrin] 600 mg PO BID PRN 01/26/25 02/02/25 History Rosuvastatin [Crestor] 10 mg PO DAILY 01/26/25 02/02/25 History Cholestyramine (with Sugar) 4 gm PO BID@1000,1800 #14 packet 01/30/25 02/02/25 Rx [Questran Packet] cefuroxime axetiL [Ceftin] 500 mg PO BID-W/MEALS #14 tab 01/30/25 02/02/25 Rx metroNIDAZOLE [Flagyl] 500 mg PO TID #21 tab 01/30/25 02/02/25 Rx Allergies Allergy/AdvReac Type Severity Reaction Status Date / Time ether Allergy Anaphylaxis Verified 02/02/25 20:25 formaldehyde Allergy Anaphylaxis Verified 02/02/25 20:25 tetanus and diphtheria Allergy Unknown Verified 02/02/25 20:25 toxoids [tetanus & diphtheria toxoids] codeine AdvReac Nausea Verified 02/02/25 20:25 Physical Exam Vitals: Vital Signs Temp Pulse Resp BP Pulse Ox 02/05/25 05:10 98.9 F 142 H 123/84 93 L 02/05/25 00:54 98.1 F 92 16 134/65 94 L 02/04/25 19:32 99.8 F H 97 18 134/86 95 Intake and Output 02/05/25 02/05/25 02/05/25 06:59 14:59 22:59 Output Total 600 Balance -600 Output: Urine 600 Other: Voiding Method Ileal Conduit (Right) Ileal Conduit (Right) # Bowel Movements 1 Results 02/05/25 06:25 02/05/25 06:25 CBC 02/05/25 Range/Units 06:25 WBC 11.77 H (4.50-10.00) X 10*3/uL RBC 4.34 (4.10-5.20) X 10*6/uL Hgb 10.1 L (12.0-15.0) g/dL Hct 34.7 L (37.2-46.3) % Plt Count 388 (140-440) X 10*3/uL Comprehensive Metabolic Panel 02/05/25 Range/Units 06:25 Sodium 142 (135-145) mmol/L Potassium 4.2 (3.5-5.5) mmol/L Chloride 114 H (96-109) mmol/L Carbon Dioxide 17.7 L (21.6-31.8) mmol/L BUN 17.4 (9.0-27.0) mg/dL Creatinine 0.8 (0.6-1.5) mg/dL Glucose 106 (70-110) mg/dL Calcium 9.0 (8.7-10.3) mg/dL Current Medications Generic Name Dose Route Start Last Admin Trade Name Freq PRN Reason Stop Dose Admin Albuterol Sulfate 2.5 mg 02/03/25 12:01 Albuterol Nebulized 2.5 Mg/3 Ml INHALATION RT-Q4H PRN Shortness Of Breath Apixaban 5 mg 02/05/25 21:00 Apixaban 5 Mg Tab PO BID [facility] Protocol Atorvastatin Calcium 20 mg 02/04/25 09:00 02/05/25 09:13 Atorvastatin 20 Mg Tab PO Not Given DAILY [facility] Calcium Carbonate 1 each 02/04/25 09:00 02/05/25 09:13 Calcium Carb-Vit D 500 Mg-5 Mcg Tab PO Not Given DAILY [facility] Dapagliflozin 10 mg 02/04/25 09:00 02/05/25 09:13 Dapagliflozin Propanediol 10 Mg Tablet PO Not Given DAILY [facility] Docusate Sodium 100 mg 02/03/25 21:00 02/05/25 09:12 Docusate 100 Mg Cap PO Not Given BID [facility] Furosemide 20 mg 02/04/25 09:00 02/05/25 10:48 Furosemide 20 Mg Tab PO Not Given BID [facility] Gabapentin 100 mg 02/04/25 09:00 02/05/25 10:04 Gabapentin 100 Mg Cap PO 100 mg DAILY [facility] Administration Hydromorphone HCl 1 mg 02/02/25 23:18 02/05/25 08:32 Hydromorphone 2 Mg/Ml 1 Ml Syringe IVP 1 mg Q3HR PRN Administration Severe Pain (Scale 7 to 10) Sodium Chloride 1,000 mls @ 75 mls/hr 02/02/25 19:30 02/05/25 05:40 Saline 0.9% IV Not Given .[id number] [facility] Ceftriaxone Sodium 1 gm/ 50 mls @ 100 mls/hr 02/03/25 23:00 02/04/25 22:26 Sodium Chloride IVPB Not Given Q24H [facility] Protocol Metronidazole 500 mg/ IV 100 mls @ 100 mls/hr 02/03/25 22:00 02/05/25 14:42 Solution IVPB 100 mls/hr Q8H [facility] Administration Protocol Diltiazem HCl 125 mg/ Dextrose 125 mls @ 5 mls/hr 02/05/25 05:30 02/05/25 06:02 /Water IV 5 mg/hr .Q24H [facility] 5 mls/hr Administration Protocol 5 MG/HR Magnesium Sulfate/Dextrose 1 100 mls @ 100 mls/hr 02/05/25 16:45 gm/ IV Solution IVPB 02/05/25 18:44 Q1H [facility] Magnesium Oxide 200 mg 02/04/25 09:00 02/05/25 09:13 Magnesium Oxide 400 Mg Tab PO Not Given DAILY [facility] Meclizine HCl 25 mg 02/03/25 21:14 Meclizine 25 Mg Tab PO TID PRN Vertigo Metoclopramide HCl 10 mg 02/03/25 14:30 02/05/25 12:18 Metoclopramide 5 Mg/Ml 2 Ml Vial IVP 10 mg Q6HR [facility] Administration Metoprolol Tartrate 50 mg 02/05/25 21:00 Metoprolol Tartrate 50 Mg Tab PO BID [facility] Naloxone HCl 0.2 mg 02/02/25 19:18 Naloxone 0.4 Mg/Ml 1 Ml Vial IV Q2M PRN Opioid Reversal Ondansetron HCl 4 mg 02/03/25 21:28 02/04/25 22:19 Ondansetron 4 Mg/2 Ml Vial IVP 4 mg Q6HR PRN Administration Nausea And Vomiting Pantoprazole Sodium 40 mg 02/04/25 12:30 02/05/25 12:18 Pantoprazole 40 Mg/10 Ml Vial IVP 40 mg BID [facility] Administration Potassium Chloride 10 meq 02/04/25 09:00 02/05/25 10:48 Potassium Chloride Er 10 Meq Tab.Er.Prt PO Not Given DAILY [facility] Propafenone HCl 300 mg 02/04/25 09:00 02/05/25 10:04 Propafenone 150 Mg Tab PO 300 mg DAILY [facility] Administration Simethicone 120 mg 02/05/25 16:03 Simethicone 80 Mg Chewable PO TID PRN GI Upset Intake and Output 02/05/25 02/05/25 02/05/25 06:59 14:59 22:59 Output Total 600 Balance -600 Output: Urine 600 Other: Voiding Method Ileal Conduit (Right) Ileal Conduit (Right) # Bowel Movements 1 02/05/25 06:25 02/05/25 06:25
[2025-02-05] MEDS: SIMETHICONE 80 MG CHEWABLE PO PRN (17:08)
[2025-02-05 17:34] LABS: NT-Pro-B-Type Natriuretic Pept 2130 pg/mL
[2025-02-05 18:25] LABS: T4, Free (Free Thyroxine) 1.85 ng/dL (0.78-2.19)
--- NOTE | 2025-02-05 19:46 | P.PN ---
Subjective Progress Note Date: 02/05/25 79-year-old female, history of hypertension, hyperlipidemia, atrial fibrillation, neuropathy, GERD, she has history of bladder cancer and urostomy. Patient recently admitted for 3 days for colitis seen on CT. States that she was discharged yesterday but felt that she was discharged too soon. States that over the last 24 hours she has had persistent cramping to her lower abdomen. Denies any fever chills or night sweats. Patient has not been eating. She states that she has not passing stool or passing gas. Blood work completed in ED reveals a WBC of 10.4, hemoglobin of 10.5 and platelet count of 370, sodium 136, potassium of 4.1, BUN/creatinine of 21/1.15 CT of the abdomen reveals improved appearance of dilated colon and fluid-filled small bowel loops. Previous descending colon colitis may be resolved. Some residual ileus may be present -Patient is admitted to the hospital for further management of ileus and surgery evaluation --Reports improvement in abdominal pain; continues to complain of persistent nausea and is refusing to eat - Patient is on scheduled Reglan 02/05/2025 Patient is seen and evaluated in ICU as PCU overflow; transferred to ICU with A- fib with RVR -Vital signs are reviewed and stable with heart rate of 92 - Patient has been placed on IV Cardizem infusion; cardiology is consulted; patient remains on IV Cardizem drip at 5 mg/h; cardiology recommending to continue with propofol 300 mg daily and increase metoprolol up to 50 mg twice daily - Aspirin is discontinued; patient is placed on Eliquis 5 mg twice daily - PPM interrogation is requested - Ileus is resolving-patient reports improvement in nausea; remains on a clear liquid diet Objective - Vital Signs Vital signs: Vital Signs Temp 98.9 F 02/05/25 05:10 Pulse 142 H 02/05/25 05:10 Resp 16 02/05/25 00:54 BP 123/84 02/05/25 05:10 Pulse Ox 93 L 02/05/25 05:10 FiO2 Intake & Output 02/04/25 02/05/25 02/05/25 18:59 06:59 18:59 Output Total 600 Balance -600 Output: Urine 600 Other: Voiding Method Ileal Conduit (Right) Ileal Conduit (Right) # Bowel Movements 1 - Exam GENERAL: Resting comfortably in bed. CARDIOVASCULAR: S1 and S2 present. No murmurs, rubs, or gallops. PULMONARY: Chest is clear to auscultation, no wheezing, rhonchi, or crackles. ABDOMEN: Soft, mild suprapubic tenderness, nondistended. No palpable organomegaly. Urostomy bag present. MUSCULOSKELETAL: No apparent joint swelling and deformities. EXTREMITIES: No apparent cyanosis, clubbing. Lipedema. No pitting edema NEUROLOGICAL: Alert and oriented. Gross neurological examination with no apparent focal deficits. SKIN: No apparent rashes. - Labs CBC & Chem 7: 02/05/25 06:25 02/05/25 06:25 Labs: Abnormal Lab Results - Last 24 Hours (Table) 02/04/25 02/04/25 Range/Units 12:21 12:21 RBC 3.86 L (4.10-5.20) 10*6/uL Hgb 9.2 L (12.0-15.0) g/dL Hct 30.8 L (37.2-46.3) % MCV 79.8 L (80.0-97.0) fL MCH 23.8 L (27.0-32.0) pg MCHC 29.9 L (32.0-37.0) g/dL RDW 18.1 H (11.5-14.5) % MPV 9.3 L (9.5-12.2) fL Immature Gran # 0.05 H (0.00-0.04) 10*3/uL Chloride 112 H (98-107) mmol/L Carbon Dioxide 18 L (22-30) mmol/L BUN 19 H (7-17) mg/dL Assessment and Plan Assessment: 1. Abdominal ileus/colitis CT scan abdomen pelvis reported improved appearance of the dilated colon and fluid-filled small bowel loops. Previous descending colon colitis may be resolved. Some residual ileus however may remain present. - Patient has been evaluated by general surgery and is recommended to advance diet to clear liquid; Reglan IV every 6 hours; Colace is added -Increase activity - Patient remains on IV Rocephin 2. Hypertension; metoprolol 25 mg twice daily 3. Hyperlipidemia; Lipitor 20 mg daily; Crestor 10 mg daily 4. Atrial fibrillation; propafenone 300 mg daily; metoprolol 25 mg twice daily 5. Neuropathy; Neurontin 100 mg daily 6. History of bladder cancer with urostomy DVT prophylaxis SCDs/subcu heparin CODE STATUS; full code
[2025-02-05] MEDS: APIXABAN 5 MG TAB PO SCH (20:32)
[2025-02-05] MEDS: METOPROLOL TARTRATE 50 MG TAB PO SCH (20:32)
[2025-02-05] MEDS: MAGNESIUM SULFATE-D5W PMX 1 GM in DEXTROSE/WATER 1 100ML.BAG IVPB SCH (20:39)
[2025-02-06 05:08] LABS: HCT 30.3 % (37.2-46.3); HGB 9.2 g/dL (12.0-15.0); MCH 23.7 pg (27.0-32.0); MCHC 30.4 g/dL (32.0-37.0); MCV 78.1 fL (80.0-97.0); Mean Platelet Volume 9.2 fL (9.5-12.2); Platelet Count 353 10*3/uL (140-440); RBC 3.88 10*6/uL (4.10-5.20); RDW 18.6 % (11.5-14.5); WBC 12.69 10*3/uL (4.50-10.00)
[2025-02-06 05:54] LABS: African American GFR (CKD) 86 (>60 ml/min/1.73 sqM); Anion Gap 7 mmol/L; Blood Urea Nitrogen 15 mg/dL (7-17); Calcium 9.4 mg/dL (8.4-10.2); Carbon Dioxide 20 mmol/L (22-30); Chloride 111 mmol/L (98-107); Glucose 103 mg/dL (74-99); Magnesium 2.1 mg/dL (1.6-2.3); Non-African American GFR(CKD) 75 (>60 ml/min/1.73 sqM); Potassium 3.7 mmol/L (3.5-5.1); Sodium 138 mmol/L (137-145)
[2025-02-06] MEDS: POTASSIUM CHLORIDE 10 MEQ in WATER FOR INJECTION 1 100ML.BAG IVPB SCH (06:34)
[2025-02-06] MEDS: PROCHLORPERAZINE INJ 10 MG/2 ML VIAL IM STA (08:53)
[2025-02-06] MEDS ORDERED: ZINC OXIDE PASTE (Z-GUARD) 1 APPLIC TOPICAL PRN (09:43)
--- NOTE | 2025-02-06 10:55 | P.PN ---
Subjective Progress Note Date: 02/06/25 Principal diagnosis: Hospital course: The patient, an 79-year-old female with a history of hypertension, dyslipidemia, SVT status post ablation, neuropathy, GERD, bladder cancer, and urostomy, was admitted on 01/2025 for abdominal discomfort and was diagnosed with colitis and a possible small bowel obstruction. She was discharged on 02/04/2025 but retu rned with worsening abdominal cramping and discomfort. On readmission, she was found to be in atrial fibrillation with RVR. A CT of the abdomen and chest revealed a dilated colon, fluid-filled small bowel loops, descending colon colitis, and residual ileus. She was admitted to the ICU for possible surgical management but is currently being managed conservatively with supportive care, tolerating a pure full liquid diet, and passing gas. No surgical intervention is planned at this time. Pertinent Vitals: Admission BP 134/65, HR 92. Pertinent cardiac Labs: 01/2025: Hb 10.5, WBC 10.4, BUN 21, Lead Refiner 1.15 - Repeat hydration: Lead Refiner 0.8, BUN 17. Cardiac home meds: Aspirin, Farxiga, Lasix 20 mg BID, Metoprolol 25 mg BID, Propafenone 300 mg daily. Pertinent cardiac testing: - 01/2025: ECG showed atrial fibrillation with ventricular response. Telemetry shows atrial fibrillation with RVR with heart rate around 124 bpm 02/06/25: Patient seen and examined at bedside today. Patient converted to sinus rhythm last night and Cardizem drip was discontinued. No new complaints. BP 145/71, pulse rate 72 bpm WBC 12.69, hemoglobin 9.2, sodium 138, potassium 3.7, creatinine 0.76, magnesium 2.1, TSH 0.273, free T41.85, proBNP 2130, A1c 5.8 Review of systems: Pertinent positives and negatives as discussed in HPI, a complete review of systems was performed and all other systems are negative. Physical examination: Vital signs reviewed GENERAL: This is a 79-year-old overweight female HEENT: Head is atraumatic, normocephalic. LUNGS: CTA bilaterally, no wheezes, no rhonchi HEART: S1-S2 audible, no murmurs ABDOMEN: Soft, nontender, positive bowel sounds. EXTREMITIES: edema b/l LE that appears chronic NEURO: Alert, oriented. Gross neuro exam did not reveal any focal deficits Assessment: Atrial fibrillation with RVR, likely new onset 01/2025, [id number] score 3, currently in sinus rhythm Partial small bowel obstruction with ileus. Descending colon colitis. Hypertension. History of SVT, status post ablation. Sick sinus syndrome, status post PPM. Dyslipidemia. Bladder cancer with urostomy. Plan: Cardizem drip discontinued Continue Metoprolol to 50 mg BID. Continue Propafenone 300 mg daily. Continue Eliquis 5 mg BID. If surgical intervention is needed, discontinue Eliquis 48 hours before surgery. Obtain updated echocardiogram. Obtain PPM interrogation, to see if pacemaker setting changes needed in setting of atrial fibrillation and how much A-fib burden there is. Obtain cardiology records from the office Dictation was produced using [employer] dictation software. please excuse any grammatical, word or spelling errors. Arnold Christianson MD PGY-1 IM Objective - Vital Signs Vital signs: Vital Signs Temp 98.1 F 02/06/25 08:00 Pulse 72 02/06/25 08:00 Resp 15 02/06/25 08:00 BP 145/71 02/06/25 08:00 Pulse Ox 96 02/06/25 08:00 FiO2 Intake & Output 02/05/25 02/06/25 02/06/25 18:59 06:59 18:59 Intake Total 1350 293.167 Output Total 950 1000 Balance 400 -706.833 Weight 78.8 kg Intake: IV 850 Sodium Chloride 0.9% 1, 850 000 ml @ 75 mls/hr IV . [id number] ANGEL Rx#:[id number] Intake, IV Titration 93.167 Amount Diltiazem 125 mg In 93.167 Dextrose 5% in Water 100 ml @ 5 MG/HR 5 mls/hr IV .Q24H ANGEL Rx#:[id number] Oral 500 200 Output: Urine 950 1000 Other: Voiding Method Ileal Conduit (Right) Ileal Conduit (Right) # Bowel Movements 1 2 - Labs CBC & Chem 7: 02/06/25 04:39 02/06/25 04:39 Labs: Abnormal Lab Results - Last 24 Hours (Table) 02/04/25 02/05/25 02/06/25 Range/Units 12:21 06:25 04:39 WBC (4.50-10.00) 10*3/uL RBC (4.10-5.20) 10*6/uL Hgb (12.0-15.0) g/dL Hct (37.2-46.3) % MCV (80.0-97.0) fL MCH (27.0-32.0) pg MCHC (32.0-37.0) g/dL MPV (9.5-12.2) fL Immature Gran # 0.08 H (0.00-0.04) X 10*3/uL Neutrophils # 10.02 H (1.80-7.70) X 10*3/uL Lymphocytes # 0.61 L (0.90-5.00) X 10*3/uL Chloride 111 H (98-107) mmol/L Carbon Dioxide 20 L (22-30) mmol/L Glucose 103 H (74-99) mg/dL TSH 0.273 L (0.465-4.680) mIU/L 02/06/25 Range/Units 04:39 WBC 12.69 H (4.50-10.00) 10*3/uL RBC 3.88 L (4.10-5.20) 10*6/uL Hgb 9.2 L (12.0-15.0) g/dL Hct 30.3 L (37.2-46.3) % MCV 78.1 L (80.0-97.0) fL MCH 23.7 L (27.0-32.0) pg MCHC 30.4 L (32.0-37.0) g/dL MPV 9.2 L (9.5-12.2) fL Immature Gran # (0.00-0.04) X 10*3/uL Neutrophils # (1.80-7.70) X 10*3/uL Lymphocytes # (0.90-5.00) X 10*3/uL Chloride (98-107) mmol/L Carbon Dioxide (22-30) mmol/L Glucose (74-99) mg/dL TSH (0.465-4.680) mIU/L
--- NOTE | 2025-02-06 11:10 | CA ---
Transthoracic Echo Report Name: Mckenna Foster Age: 79 Gender: F : 1945 Exam Date: 02/06/2025 08:18 Exam Location: [facility] Ht (in): 64 Wt (lb): 170 Ordering Physician: Jose Armando Juan MD ([id number]) Attending/Referring Phys: Probate Judge Sarah Vaughn RDCS Procedure CPT: Indications: afib rvr Cardiac Hx: Technical Quality: Good Contrast 1: Total Dose (mL): Contrast 2: Total Dose (mL): MEASUREMENTS (Male / Female) Normal Values 2D ECHO LV Diastolic Diameter PLAX 4.4 cm 4.2 - 5.9 / 3.9 - 5.3 cm LV Systolic Diameter PLAX 3.3 cm IVS Diastolic Thickness 1.3 cm 0.6 - 1.0 / 0.6 - 0.9 cm LVPW Diastolic Thickness 1.3 cm 0.6 - 1.0 / 0.6 - 0.9 cm LV Relative Wall Thickness 0.6 RV Internal Dim ED PLAX 3.3 cm LA Systolic Diameter LX 3.9 cm 3.0 - 4.0 / 2.7 - 3.8 cm LV Diastolic Volume MOD BP 80.1 cm??? 67 - 155 / 56 - 104 cm??? LV Systolic Volume MOD BP 27.8 cm??? - 58 / 19 - 49 cm??? LV Ejection Fraction MOD BP 65.2 % >= 55 % LV Cardiac Index MOD BP 2046.4 cm???/min???m??? LV Diastolic Volume MOD 4C 56.2 cm??? LV Systolic Volume MOD 4C 27.6 cm??? LV Ejection Fraction MOD 4C 50.8 % LV Cardiac Index MOD 4C 1119.5 cm???/min???m??? LV Diastolic Length 4C 6.3 cm LV Systolic Length 4C 5.7 cm LV Diastolic Volume MOD 2C 100.0 cm??? LV Systolic Volume MOD 2C 27.4 cm??? LV Ejection Fraction MOD 2C 72.6 % LV Cardiac Index MOD 2C 2843.0 cm???/min???m??? LV Diastolic Length 2C 7.2 cm LV Systolic Length 2C 5.9 cm LA Volume 59.3 cm??? 18 - 58 / 22 - 52 cm??? LA Volume Index 31.4 cm???/m??? 16 - 28 cm???/m??? M-MODE Aortic Root Diameter MM 3.3 cm AV Cusp Separation MM 2.3 cm DOPPLER AV Peak Velocity 172.3 cm/s AV Peak Gradient 11.9 mmHg MV Area PHT 3.9 cm??? Mitral E Point Velocity 100.7 cm/s Mitral A Point Velocity 84.1 cm/s Mitral E to A Ratio 1.2 MV Deceleration Time 196.6 ms TR Peak Velocity 294.3 cm/s TR Peak Gradient 34.6 mmHg Right Ventricular Systolic Press 39.3 mmHg FINDINGS Left Ventricle Left ventricular ejection fraction is estimated at 55-60 %. Left ventricular cavity size normal. Moderately increased septal wall thickness. Mildly increased posterior wall thickness. No obvious regional wall motion abnormalities. Right Ventricle Mild right ventricular dilatation. Mild pulmonary hypertension. Right Atrium Normal right atrial size. No right atrial thrombus or mass seen. Left Atrium Mildly increased left atrial volume. No left atrial thrombus or mass present. Mitral Valve Mitral valve thickened. Mitral annular calcification. Mild mitral regurgitation. Aortic Valve Trileaflet aortic valve. Aortic valve sclerosis. No aortic stenosis. No aortic regurgitation. Tricuspid Valve Structurally normal tricuspid valve. Mild tricuspid regurgitation. Pulmonic Valve Structurally normal pulmonic valve. Mild pulmonic regurgitation. Pericardium No pericardial effusion. Aorta Normal size aortic root and proximal ascending aorta. CONCLUSIONS Left ventricular ejection fraction 55 to 60% Moderately increased left ventricular wall thickness RVSP 39 Mild mitral regurgitation Mild tricuspid regurgitation No pericardial effusion Previewed by: Dr. Cem Wren DO (Electronically Signed) Final Date: 06 February 2025 11:09
[2025-02-06] MEDS: IBUPROFEN 600 MG TAB PO PRN (11:34)
--- NOTE | 2025-02-06 14:13 | P.PN ---
Subjective Progress Note Date: 02/06/25 SURGICAL PROGRESS NOTE CHIEF COMPLAINT: Ileus HISTORY OF PRESENT ILLNESS: Patient in the ICU as overflow for A-fib RVR. Patient reports having multiple loose bowel movements. She reports decrease in abdominal pain. She did have episode of vomiting last night but has been able to tolerate the full liquid diet this morning. Afebrile. HR 64 WBC is up from 11.7-12.6 PHYSICAL EXAM: VITAL SIGNS: Reviewed. GENERAL: Well-developed in no acute distress. ABDOMEN: Soft. Nondistended. Nontender. NEUROLOGIC: Alert and oriented. Cranial nerves II through XII grossly intact. ASSESSMENT: 1. Resolving ileus PLAN: - Continue full liquid diet - Continue Reglan Physician Prototype Model Maker note has been reviewed by physician. Signing provider agrees with the documented findings, assessment, and plan of care. Objective - Vital Signs Vital signs: Vital Signs Temp 98.1 F 02/06/25 08:00 Pulse 72 02/06/25 08:00 Resp 15 02/06/25 08:00 BP 145/71 02/06/25 08:00 Pulse Ox 96 02/06/25 08:00 FiO2 Intake & Output 02/05/25 02/06/25 02/06/25 18:59 06:59 18:59 Intake Total 1350 293.167 Output Total 950 1000 Balance 400 -706.833 Weight 78.8 kg Intake: IV 850 Sodium Chloride 0.9% 1, 850 000 ml @ 75 mls/hr IV . [id number] ANG[facility] Rx#:[id number] Intake, IV Titration 93.167 Amount Diltiazem 125 mg In 93.167 Dextrose 5% in Water 100 ml @ 5 MG/HR 5 mls/hr IV .Q24H ANGEL Rx#:[id number] Oral 500 200 Output: Urine 950 1000 Other: Voiding Method Ileal Conduit (Right) Ileal Conduit (Right) # Bowel Movements 1 2 - Labs CBC & Chem 7: 02/06/25 04:39 02/06/25 04:39 Labs: Abnormal Lab Results - Last 24 Hours (Table) 02/04/25 02/06/25 02/06/25 Range/Units 12:21 04:39 04:39 WBC 12.69 H (4.50-10.00) 10*3/uL RBC 3.88 L (4.10-5.20) 10*6/uL Hgb 9.2 L (12.0-15.0) g/dL Hct 30.3 L (37.2-46.3) % MCV 78.1 L (80.0-97.0) fL MCH 23.7 L (27.0-32.0) pg MCHC 30.4 L (32.0-37.0) g/dL MPV 9.2 L (9.5-12.2) fL Chloride 111 H (98-107) mmol/L Carbon Dioxide 20 L (22-30) mmol/L Glucose 103 H (74-99) mg/dL TSH 0.273 L (0.465-4.680) mIU/L
[2025-02-06 15:17] LABS: HCT 29.1 % (37.2-46.3); MCH 24.3 pg (27.0-32.0); MCHC 30.9 g/dL (32.0-37.0); MCV 78.6 fL (80.0-97.0); Mean Platelet Volume 8.9 fL (9.5-12.2); Platelet Count 338 10*3/uL (140-440); RDW 18.7 % (11.5-14.5); WBC 12.72 10*3/uL (4.50-10.00)
--- NOTE | 2025-02-07 06:12 | P.PN ---
Subjective Progress Note Date: 02/06/25 79-year-old female, history of hypertension, hyperlipidemia, atrial fibrillation, neuropathy, GERD, she has history of bladder cancer and urostomy. Patient recently admitted for 3 days for colitis seen on CT. States that she was discharged yesterday but felt that she was discharged too soon. States that over the last 24 hours she has had persistent cramping to her lower abdomen. Denies any fever chills or night sweats. Patient has not been eating. She states that she has not passing stool or passing gas. Blood work completed in ED reveals a WBC of 10.4, hemoglobin of 10.5 and platelet count of 370, sodium 136, potassium of 4.1, BUN/creatinine of 21/1.15 CT of the abdomen reveals improved appearance of dilated colon and fluid-filled small bowel loops. Previous descending colon colitis may be resolved. Some residual ileus may be present -Patient is admitted to the hospital for further management of ileus and surgery evaluation --Reports improvement in abdominal pain; continues to complain of persistent nausea and is refusing to eat - Patient is on scheduled Reglan 02/05/2025 Patient is seen and evaluated in ICU as PCU overflow; transferred to ICU with A- fib with RVR -Vital signs are reviewed and stable with heart rate of 92 - Patient has been placed on IV Cardizem infusion; cardiology is consulted; patient remains on IV Cardizem drip at 5 mg/h; cardiology recommending to continue with propofol 300 mg daily and increase metoprolol up to 50 mg twice daily - Aspirin is discontinued; patient is placed on Eliquis 5 mg twice daily - PPM interrogation is requested - Ileus is resolving-patient reports improvement in nausea; remains on a clear liquid diet 02/06/2025 Patient is seen in follow-up today in the ICU although was a downgrade once a bed becomes available. Cardiology has evaluated the patient making adjustments and is off Cardizem drip. General surgery also following as patient was noted to have an ileus which is resolving and improving hide patient is tolerating diet slowly being advanced from general surgery. Patient reports she feels too weak to return home and will have PT/OT therapy evaluate the patient. Management following looking into possible [facility] for continued strength mobility review of systems: Constitutional: No reports of fatigue, fever, or chills Cardiovascular: No reports of chest pain or palpitations Respiratory: No reports of shortness of breath or cough GI: No reports of nausea, vomiting, or diarrhea, reports improvement in abdominal pain : No reports of dysuria or retention Neurovascular: reports of generalized weakness All medications have been reviewed Physical exam: Gen: This is a 79-year-old female who is awake, alert and oriented x 3, well- developed, obese HEENT: Head is atraumatic, normocephalic. Pupils equal, round. Sclerae is anicteric. NECK: Supple. No JVD. No lymphadenopathy. No thyromegaly. LUNGS: Clear to auscultation. No wheezes or rhonchi. No intercostal retractions. HEART: S1, S2 are muffled ABDOMEN: Soft. Bowel sounds are present. No masses. No tenderness. EXTREMITIES: No pedal edema. No calf tenderness. NEUROLOGICAL: Patient is awake, alert and oriented x3. Cranial nerves 2 through 12 are grossly intact. Diffusely weak Assessment: 1. Abdominal ileus/colitis, as per CT, resolving ileus 2. Hypertension 3. Hyperlipidemia 4. Atrial fibrillation; with RVR, currently rate controlled 5. Neuropathy 6. History of bladder cancer with urostomy GI prophylaxis DVT prophylaxis SCDs/subcu heparin CODE STATUS; full code Plan: Was admitted with abdominal pain noted to have a resolving ileus with general surgery following. Patient tolerating clear liquids and passing gas and diet is being advanced slowly Patient also noted to be in atrial fibrillation with RVR and is off Cardizem drip with adjustments to medications per cardiology and is a 3 S. overflow here in the ICU. Patient can be transferred to [facility] with telemetry Recommend PT/OT therapy evaluation as patient is reporting significant weakness and unable to go home as she lives alone would like to go to [facility]. Case management following and looking into possibly [facility] Encourage increase activity as tolerated Will follow-up on repeat labs Possible discharge planning in the next 24 to 48 hours The impression and plan of care has been dictated by Hien Feliciano, Nurse Practitioner as directed. Dr. Rosalba MD I have performed a history and examination and MDM of this patient, discussed the same with the dictator, and agree with the dictator's assessment and plan as written ,documented as a scribe. Based on total visit time, I have performed more than 50% of the visit. Objective - Vital Signs Vital signs: Vital Signs Temp 97.9 F 02/06/25 04:00 Pulse 64 02/06/25 04:00 Resp 16 02/06/25 04:00 BP 117/60 02/06/25 04:00 Pulse Ox 94 L 02/06/25 04:00 FiO2 Intake & Output 02/05/25 02/06/25 02/06/25 18:59 06:59 18:59 Intake Total 1350 293.167 Output Total 950 1000 Balance 400 -706.833 Weight 78.8 kg Intake: IV 850 Sodium Chloride 0.9% 1, 850 000 ml @ 75 mls/hr IV . [id number] ANGEL Rx#:[id number] Intake, IV Titration 93.167 Amount Diltiazem 125 mg In 93.167 Dextrose 5% in Water 100 ml @ 5 MG/HR 5 mls/hr IV .Q24H ANGEL Rx#:[id number] Oral 500 200 Output: Urine 950 1000 Other: Voiding Method Ileal Conduit (Right) Ileal Conduit (Right) # Bowel Movements 1 2 - Labs CBC & Chem 7: 02/06/25 15:04 02/06/25 15:04 Labs: Abnormal Lab Results - Last 24 Hours (Table) 02/04/25 02/05/25 02/05/25 Range/Units 12:21 06:25 06:25 WBC 11.77 H (4.50-10.00) X 10*3/uL RBC (4.10-5.20) 10*6/uL Hgb 10.1 L (12.0-15.0) g/dL Hct 34.7 L (37.2-46.3) % MCV (80.0-97.0) fL MCH 23.3 L (27.0-32.0) pg MCHC 29.1 L (32.0-37.0) g/dL RDW 18.5 H (11.5-14.5) % MPV 9.4 L (9.5-12.2) FL Immature Gran # 0.08 H (0.00-0.04) X 10*3/uL Neutrophils # 10.02 H (1.80-7.70) X 10*3/uL Lymphocytes # 0.61 L (0.90-5.00) X 10*3/uL Chloride 114 H (96-109) mmol/L Carbon Dioxide 17.7 L (21.6-31.8) mmol/L BUN/Creatinine Ratio 21.75 H (12.00-20.00) Ratio Glucose (74-99) mg/dL TSH 0.273 L (0.465-4.680) mIU/L 02/06/25 02/06/25 Range/Units 04:39 04:39 WBC 12.69 H (4.50-10.00) X 10*3/uL RBC 3.88 L (4.10-5.20) 10*6/uL Hgb 9.2 L (12.0-15.0) g/dL Hct 30.3 L (37.2-46.3) % MCV 78.1 L (80.0-97.0) fL MCH 23.7 L (27.0-32.0) pg MCHC 30.4 L (32.0-37.0) g/dL RDW (11.5-14.5) % MPV 9.2 L (9.5-12.2) FL Immature Gran # (0.00-0.04) X 10*3/uL Neutrophils # (1.80-7.70) X 10*3/uL Lymphocytes # (0.90-5.00) X 10*3/uL Chloride 111 H (96-109) mmol/L Carbon Dioxide 20 L (21.6-31.8) mmol/L BUN/Creatinine Ratio (12.00-20.00) Ratio Glucose 103 H (74-99) mg/dL TSH (0.465-4.680) mIU/L
[2025-02-07 06:44] LABS: Basophils # (A) 0.04 10*3/uL (0.00-0.10); Basophils % (A) 0.3 %; Eosinophils # (A) 0.37 10*3/uL (0.04-0.35); Eosinophils % (A) 3.2 %; HGB 9.2 g/dL (12.0-15.0); Lymphocytes # (A) 0.89 10*3/uL (0.90-5.00); Lymphocytes % (A) 7.8 %; MCH 24.1 pg (27.0-32.0); MCHC 30.7 g/dL (32.0-37.0); MCV 78.5 fL (80.0-97.0); Monocytes # (A) 0.81 10*3/uL (0.20-1.00); Monocytes % (A) 7.1 %; Neutrophils # (A) 9.24 10*3/uL (1.80-7.70); Neutrophils % (A) 80.7 %; Platelet Count 369 10*3/uL (140-440); RBC 3.82 10*6/uL (4.10-5.20); RDW 18.7 % (11.5-14.5); WBC 11.45 10*3/uL (4.50-10.00)
[2025-02-07 07:23] LABS: African American GFR (CKD) 86 (>60 ml/min/1.73 sqM); Anion Gap 5 mmol/L; Blood Urea Nitrogen 13 mg/dL (7-17); Carbon Dioxide 20 mmol/L (22-30); Chloride 114 mmol/L (98-107); Glucose 96 mg/dL (74-99); Non-African American GFR(CKD) 75 (>60 ml/min/1.73 sqM); Potassium 3.6 mmol/L (3.5-5.1); Sodium 139 mmol/L (137-145)
--- NOTE | 2025-02-07 11:44 | P.PN ---
Subjective Progress Note Date: 02/07/25 Principal diagnosis: Hospital course: The patient, an 79-year-old female with a history of hypertension, dyslipidemia, SVT status post ablation, neuropathy, GERD, bladder cancer, and urostomy, was admitted on 01/2025 for abdominal discomfort and was diagnosed with colitis and a possible small bowel obstruction. She was discharged on 02/04/2025 but retu rned with worsening abdominal cramping and discomfort. On readmission, she was found to be in atrial fibrillation with RVR. A CT of the abdomen and chest revealed a dilated colon, fluid-filled small bowel loops, descending colon colitis, and residual ileus. She was admitted to the ICU for possible surgical management but is currently being managed conservatively with supportive care, tolerating a pure full liquid diet, and passing gas. No surgical intervention is planned at this time. Pertinent Vitals: Admission BP 134/65, HR 92. Pertinent cardiac Labs: 01/2025: Hb 10.5, WBC 10.4, BUN 21, Diesel Engine Engineer 1.15 - Repeat hydration: Diesel Engine Engineer 0.8, BUN 17. Cardiac home meds: Aspirin, Farxiga, Lasix 20 mg BID, Metoprolol 25 mg BID, Propafenone 300 mg daily. Pertinent cardiac testing: - 01/2025: ECG showed atrial fibrillation with ventricular response. Telemetry shows atrial fibrillation with RVR with heart rate around 124 bpm 02/06/25: Patient seen and examined at bedside today. Patient converted to sinus rhythm last night and Cardizem drip was discontinued. No new complaints. BP 145/71, pulse rate 72 bpm WBC 12.69, hemoglobin 9.2, sodium 138, potassium 3.7, creatinine 0.76, magnesium 2.1, TSH 0.273, free T41.85, proBNP 2130, A1c 5.8 02/07/25: Patient evaluated at bedside today. Patient reports mild chest pressure today. Denies palpitations. Pulse 65 bpm, BP 96/61, SpO2 98% on 2 L of oxygen via nasal cannula wbc 11.45, hb 9.2, K 3.6, creatinine 0.76 Echocardiogram shows EF 55 to 60%, increased LV wall thickness, mild TR and mild MR Review of systems: Pertinent positives and negatives as discussed in HPI, a complete review of systems was performed and all other systems are negative. Physical examination: Vital signs reviewed GENERAL: This is a 79-year-old overweight female HEENT: Head is atraumatic, normocephalic. LUNGS: CTA bilaterally, no wheezes, no rhonchi HEART: S1-S2 audible, no murmurs ABDOMEN: Soft, nontender, positive bowel sounds. EXTREMITIES: edema b/l LE that appears chronic NEURO: Alert, oriented. Gross neuro exam did not reveal any focal deficits Assessment: Atrial fibrillation with RVR, likely new onset 01/2025, [id number] score 3, currently in sinus rhythm Partial small bowel obstruction with ileus. Descending colon colitis. Hypertension. History of SVT, status post ablation. Sick sinus syndrome, status post PPM. Dyslipidemia. Bladder cancer with urostomy. Plan: Obtain troponin 0.5 inch Nitro-Bid paste Continue Metoprolol to 50 mg BID. Continue Propafenone 300 mg daily. Continue Eliquis 5 mg BID. If surgical intervention is needed, discontinue Eliquis 48 hours before surgery. Dictation was produced using [employer] dictation software. please excuse any grammatical, word or spelling errors. Arnold Christianson MD PGY-1 IM Objective - Vital Signs Vital signs: Vital Signs Temp 97.6 F 02/07/25 09:14 Pulse 72 02/07/25 09:14 Resp 15 02/07/25 09:14 BP 113/48 02/07/25 09:14 Pulse Ox 98 02/07/25 09:14 FiO2 Intake & Output 02/06/25 02/07/25 02/07/25 18:59 06:59 18:59 Intake Total 1050 1450 Output Total 675 150 Balance 375 1300 Weight 87.6 kg Intake: IV 600 1450 Sodium Chloride 0.9% 1, 600 1200 000 ml @ 50 mls/hr IV . Q20H ANG[facility] Rx#:[id number] cefTRIAXone 1 gm In 50 Sodium Chloride 0.9% 50 ml @ 100 mls/hr IVPB Q24H [facility] Rx#:[id number] metroNIDAZOLE-NS PMX 500 200 mg In Saline 1 100ml.bag @ 100 mls/hr IVPB Q8H [facility] Rx#:[id number] Oral 450 Output: Urine 675 150 Other: Voiding Method Ileal Conduit (Right) Ileal Conduit (Right) # Bowel Movements 3 1 - Labs CBC & Chem 7: 02/07/25 06:36 02/07/25 06:36 Labs: Abnormal Lab Results - Last 24 Hours (Table) 02/06/25 02/07/25 02/07/25 Range/Units 15:04 06:36 06:36 WBC 12.72 H 11.45 H (4.50-10.00) 10*3/uL RBC 3.70 L 3.82 L (4.10-5.20) 10*6/uL Hgb 9.0 L 9.2 L (12.0-15.0) g/dL Hct 29.1 L 30.0 L (37.2-46.3) % MCV 78.6 L 78.5 L (80.0-97.0) fL MCH 24.3 L 24.1 L (27.0-32.0) pg MCHC 30.9 L 30.7 L (32.0-37.0) g/dL MPV 8.9 L 9.0 L (9.5-12.2) fL Immature Gran # 0.10 H (0.00-0.04) 10*3/uL Neutrophils # 9.24 H (1.80-7.70) 10*3/uL Lymphocytes # 0.89 L (0.90-5.00) 10*3/uL Eosinophils # 0.37 H (0.04-0.35) 10*3/uL Chloride 114 H (98-107) mmol/L Carbon Dioxide 20 L (22-30) mmol/L
--- NOTE | 2025-02-07 13:52 | P.PN ---
Subjective Progress Note Date: 02/07/25 SURGICAL PROGRESS NOTE CHIEF COMPLAINT: Ileus HISTORY OF PRESENT ILLNESS: Patient in the ICU as overflow for A-fib RVR. Patient reports her abdominal pain is improved. She is tolerating the full liquids. She is having bowel movements. Afebrile. WBC is down from 12.7-11.45 Hgb 9.2 PHYSICAL EXAM: VITAL SIGNS: Reviewed. GENERAL: Well-developed in no acute distress. ABDOMEN: Soft. Nondistended. Nontender. NEUROLOGIC: Alert and oriented. Cranial nerves II through XII grossly intact. ASSESSMENT: 1. Resolving ileus PLAN: - Advance diet to regular - Continue Reglan Physician Physical Therapy Aides Teacher note has been reviewed by physician. Signing provider agrees with the documented findings, assessment, and plan of care. Objective - Vital Signs Vital signs: Vital Signs Temp 97.6 F 02/07/25 09:14 Pulse 72 02/07/25 09:14 Resp 15 02/07/25 09:14 BP 113/48 02/07/25 09:14 Pulse Ox 98 02/07/25 09:14 FiO2 Intake & Output 02/06/25 02/07/25 02/07/25 18:59 06:59 18:59 Intake Total 1050 1450 Output Total 675 150 Balance 375 1300 Weight 87.6 kg Intake: IV 600 1450 Sodium Chloride 0.9% 1, 600 1200 000 ml @ 50 mls/hr IV . Q20H ANGEL Rx#:[id number] cefTRIAXone 1 gm In 50 Sodium Chloride 0.9% 50 ml @ 100 mls/hr IVPB Q24H [facility] Rx#:[id number] metroNIDAZOLE-NS PMX 500 200 mg In Saline 1 100ml.bag @ 100 mls/hr IVPB Q8H [facility] Rx#:[id number] Oral 450 Output: Urine 675 150 Other: Voiding Method Ileal Conduit (Right) Ileal Conduit (Right) # Bowel Movements 3 1 - Labs CBC & Chem 7: 02/07/25 06:36 02/07/25 06:36 Labs: Abnormal Lab Results - Last 24 Hours (Table) 02/06/25 02/07/25 02/07/25 Range/Units 15:04 06:36 06:36 WBC 12.72 H 11.45 H (4.50-10.00) 10*3/uL RBC 3.70 L 3.82 L (4.10-5.20) 10*6/uL Hgb 9.0 L 9.2 L (12.0-15.0) g/dL Hct 29.1 L 30.0 L (37.2-46.3) % MCV 78.6 L 78.5 L (80.0-97.0) fL MCH 24.3 L 24.1 L (27.0-32.0) pg MCHC 30.9 L 30.7 L (32.0-37.0) g/dL MPV 8.9 L 9.0 L (9.5-12.2) fL Immature Gran # 0.10 H (0.00-0.04) 10*3/uL Neutrophils # 9.24 H (1.80-7.70) 10*3/uL Lymphocytes # 0.89 L (0.90-5.00) 10*3/uL Eosinophils # 0.37 H (0.04-0.35) 10*3/uL Chloride 114 H (98-107) mmol/L Carbon Dioxide 20 L (22-30) mmol/L
[2025-02-07] MEDS: POTASSIUM CHLORIDE 10 MEQ in WATER FOR INJECTION 1 100ML.BAG IVPB SCH (14:02)
[2025-02-07] MEDS: NITROGLYCERIN OINT 1 INCH/GM PACKET TOPICAL SCH (14:06)
[2025-02-07] MEDS: ALBUTEROL NEBULIZED 2.5 MG/3 ML INHALATION PRN (17:06)
--- NOTE | 2025-02-08 06:17 | P.PN ---
Subjective Progress Note Date: 02/07/25 79-year-old female, history of hypertension, hyperlipidemia, atrial fibrillation, neuropathy, GERD, she has history of bladder cancer and urostomy. Patient recently admitted for 3 days for colitis seen on CT. States that she was discharged yesterday but felt that she was discharged too soon. States that over the last 24 hours she has had persistent cramping to her lower abdomen. Denies any fever chills or night sweats. Patient has not been eating. She states that she has not passing stool or passing gas. Blood work completed in ED reveals a WBC of 10.4, hemoglobin of 10.5 and platelet count of 370, sodium 136, potassium of 4.1, BUN/creatinine of 21/1.15 CT of the abdomen reveals improved appearance of dilated colon and fluid-filled small bowel loops. Previous descending colon colitis may be resolved. Some residual ileus may be present -Patient is admitted to the hospital for further management of ileus and surgery evaluation --Reports improvement in abdominal pain; continues to complain of persistent nausea and is refusing to eat - Patient is on scheduled Reglan 02/05/2025 Patient is seen and evaluated in ICU as PCU overflow; transferred to ICU with A- fib with RVR -Vital signs are reviewed and stable with heart rate of 92 - Patient has been placed on IV Cardizem infusion; cardiology is consulted; patient remains on IV Cardizem drip at 5 mg/h; cardiology recommending to continue with propofol 300 mg daily and increase metoprolol up to 50 mg twice daily - Aspirin is discontinued; patient is placed on Eliquis 5 mg twice daily - PPM interrogation is requested - Ileus is resolving-patient reports improvement in nausea; remains on a clear liquid diet 02/06/2025 Patient is seen in follow-up today in the ICU although was a downgrade once a bed becomes available. Cardiology has evaluated the patient making adjustments and is off Cardizem drip. General surgery also following as patient was noted to have an ileus which is resolving and improving hide patient is tolerating diet slowly being advanced from general surgery. Patient reports she feels too weak to return home and will have PT/OT therapy evaluate the patient. Management following looking into possible [facility] for continued strength mobility 02/07/2025 Patient is seen in follow-up currently sitting up in the chair and per nursing staff had reported some chest pain. Cardiology is following since ordered troponin serial enzymes which have been negative x 3. Patient reports to being significantly weak and was evaluated by physical therapy recommending rehab as patient lives alone and was independent prior to this. Patient is fearful of going home and following. Case management following has submitted for insurance authorization which is pending to [facility]. review of systems: Constitutional: No reports of fatigue, fever, or chills Cardiovascular: No reports of chest pain or palpitations Respiratory: No reports of shortness of breath or cough GI: No reports of nausea, vomiting, or diarrhea, reports improvement in abdominal pain : No reports of dysuria or retention Neurovascular: reports of generalized weakness All medications have been reviewed Physical exam: Gen: This is a 79-year-old female who is awake, alert and oriented x 3, well- developed, obese HEENT: Head is atraumatic, normocephalic. Pupils equal, round. Sclerae is ani cteric. NECK: Supple. No JVD. No lymphadenopathy. No thyromegaly. LUNGS: Clear to auscultation. No wheezes or rhonchi. No intercostal retractions. HEART: S1, S2 are muffled ABDOMEN: Soft. Bowel sounds are present. No masses. No tenderness. EXTREMITIES: No pedal edema. No calf tenderness. NEUROLOGICAL: Patient is awake, alert and oriented x3. Cranial nerves 2 through 12 are grossly intact. Diffusely weak Assessment: 1. Abdominal ileus/colitis, as per CT, resolving ileus 2. Hypertension 3. Hyperlipidemia 4. Atrial fibrillation; with RVR, currently rate controlled 5. Neuropathy 6. History of bladder cancer with urostomy GI prophylaxis DVT prophylaxis SCDs/subcu heparin CODE STATUS; full code Plan: Was admitted with abdominal pain noted to have a resolving ileus with general surgery following. Patient tolerating clear liquids and passing gas and diet is being advanced slowly Patient was also noted to be in atrial fibrillation with RVR and is off Cardizem drip with adjustments to medications per cardiology and is a 3 S. overflow here in the ICU. Patient can be transferred to [facility] with telemetry, currently awaiting a bed Patient reported some chest pain to cardiology and serial troponins were performed which were negative Recommend PT/OT therapy evaluation daily as patient is reporting significant weakness and unable to go home as she lives alone would like to go to [facility]. Case management following and looking into possibly [facility]. Patient will require insurance Auth. Encourage increase activity as tolerated Will follow-up on repeat labs Possible discharge planning in the next 24 to 48 hours The impression and plan of care has been dictated by Hien Feliciano, Nurse Practitioner as directed. Dr. Rosalba MD I have performed a history and examination and MDM of this patient, discussed the same with the dictator, and agree with the dictator's assessment and plan as written ,documented as a scribe. Based on total visit time, I have performed more than 50% of the visit. Objective - Vital Signs Vital signs: Vital Signs Temp 98.6 F 02/08/25 05:54 Pulse 64 02/08/25 05:54 Resp 21 02/08/25 05:54 BP 110/72 02/08/25 05:54 Pulse Ox 95 02/08/25 05:54 FiO2 Intake & Output 02/07/25 02/07/25 02/08/25 06:59 18:59 06:59 Intake Total 1450 700 975 Output Total 655 727 9152 Balance 1300 300 -275 Weight 87.6 kg Intake: IV 1450 400 675 Sodium Chloride 0.9% 1, 1200 400 375 000 ml @ 50 mls/hr IV . Q20H ANGEL Rx#:[id number] cefTRIAXone 1 gm In 50 100 Sodium Chloride 0.9% 50 ml @ 100 mls/hr IVPB Q24H ANGEL Rx#:[id number] metroNIDAZOLE-NS PMX 500 200 200 mg In Saline 1 100ml.bag @ 100 mls/hr IVPB Q8H ANGEL Rx#:[id number] Intake, IV Titration 300 Amount Potassium Chloride 10 meq 200 In Water For Injection 1 100ml.bag @ 100 mls/hr IVPB Q1H ANGEL Rx#: [id number] metroNIDAZOLE-NS PMX 500 100 mg In Saline 1 100ml.bag @ 100 mls/hr IVPB Q8H ANGEL Rx#:[id number] Oral 300 Output: Urine 268 201 3242 Other: Voiding Method Ileal Conduit (Right) Ileal Conduit (Right) Ileal Conduit (Right) # Bowel Movements 1 2 2 - Labs CBC & Chem 7: 02/07/25 06:36 02/07/25 06:36 Labs: Abnormal Lab Results - Last 24 Hours (Table) 02/07/25 02/07/25 Range/Units 06:36 06:36 WBC 11.45 H (4.50-10.00) 10*3/uL RBC 3.82 L (4.10-5.20) 10*6/uL Hgb 9.2 L (12.0-15.0) g/dL Hct 30.0 L (37.2-46.3) % MCV 78.5 L (80.0-97.0) fL MCH 24.1 L (27.0-32.0) pg MCHC 30.7 L (32.0-37.0) g/dL MPV 9.0 L (9.5-12.2) fL Immature Gran # 0.10 H (0.00-0.04) 10*3/uL Neutrophils # 9.24 H (1.80-7.70) 10*3/uL Lymphocytes # 0.89 L (0.90-5.00) 10*3/uL Eosinophils # 0.37 H (0.04-0.35) 10*3/uL Chloride 114 H (98-107) mmol/L Carbon Dioxide 20 L (22-30) mmol/L
[2025-02-08 06:36] LABS: Basophils # (A) 0.04 10*3/uL (0.00-0.10); Basophils % (A) 0.4 %; Eosinophils # (A) 0.22 10*3/uL (0.04-0.35); HCT 27.6 % (37.2-46.3); HGB 8.3 g/dL (12.0-15.0); Lymphocytes # (A) 1.08 10*3/uL (0.90-5.00); Lymphocytes % (A) 9.6 %; MCH 23.4 pg (27.0-32.0); MCHC 30.1 g/dL (32.0-37.0); Mean Platelet Volume 9.1 fL (9.5-12.2); Monocytes # (A) 1.06 10*3/uL (0.20-1.00); Monocytes % (A) 9.4 %; Neutrophils # (A) 8.63 10*3/uL (1.80-7.70); Neutrophils % (A) 76.6 %; Platelet Count 338 10*3/uL (140-440); RBC 3.54 10*6/uL (4.10-5.20); RDW 18.7 % (11.5-14.5); WBC 11.26 10*3/uL (4.50-10.00)
[2025-02-08 06:48] LABS: ALT 9 U/L (4-34); AST 12 U/L (14-36); African American GFR (CKD) 86 (>60 ml/min/1.73 sqM); Alkaline Phosphatase 93 U/L (38-126); Anion Gap 8 mmol/L; Blood Urea Nitrogen 10 mg/dL (7-17); Calcium 8.8 mg/dL (8.4-10.2); Carbon Dioxide 20 mmol/L (22-30); Chloride 110 mmol/L (98-107); Glucose 105 mg/dL (74-99); Non-African American GFR(CKD) 75 (>60 ml/min/1.73 sqM); Potassium 3.5 mmol/L (3.5-5.1); Sodium 138 mmol/L (137-145); Total Bilirubin 0.2 mg/dL (0.2-1.3); Total Protein 4.4 g/dL (6.3-8.2)
[2025-02-08] MEDS: POTASSIUM CHLORIDE 10 MEQ in WATER FOR INJECTION 1 100ML.BAG IVPB SCH (07:46)
--- NOTE | 2025-02-08 12:36 | P.DS ---
Providers Date of admission: 02/02/25 19:20 Expected date of discharge: 02/08/25 Attending physician: Rao Garduno Consults: 02/02/25 19:18 Consult Physician Routine Consulting Provider: Chris Reese Consult Reason/Comments: ileus Do you want consulting provider notified?: Yes 02/05/25 05:25 Consult Physician Routine Consulting Provider: Cem Wren Consult Reason/Comments: Afib RVR Do you want consulting provider notified?: Yes, Notify in am Primary care physician: Alberto Koenig Hospital Course: Final diagnosis -Abdominal ileus/colitis, as per CT, resolving ileus -Chest pain, ruled out ACS, troponins were negative and evaluated by cardiology -Hypertension -Hyperlipidemia -Atrial fibrillation; with RVR, currently rate controlled -Neuropathy -History of bladder cancer with urostomy GI prophylaxis DVT prophylaxis SCDs/subcu heparin CODE STATUS; full code Discharge disposition Patient is being discharged in a stable condition with guarded prognosis to [facility]. Patient will follow-up with Dr. Koenig in the outpatient setting upon discharge. Patient is to continue with antibiotics for 1 week on discharge and outpatient follow-up with general surgery and cardiology as scheduled. Total time taken is greater than 35 minutes. Hospital course This is a 79-year-old FEmale who was recently admitted with abdominal pain with concerns of ileus and recurrent colitis being closely monitored with general surgery following and maintained on antibiotics. Patient showing improvements and is tolerating diet and slowly advancing and is having bowel movements and ileus likely resolved. Patient will be continued on Ceftin and Flagyl for 1 week on discharge. Patient also noted to have A-fib with RVR during hospitalization maintained on Cardizem drip and medications being adjusted per cardiology currently in sinus rhythm recommending outpatient follow-up. Patient has been started on Eliquis and will continue on discharge. Patient with significant weakness and prolonged hospitalization evaluated by PT/OT therapy recommending rehab and patient is agreeable. Patient has been accepted at [facility] and has received insurance authorization. Patient will be discharged to [facility] today. Please refer to other consultation notes for further HPI. Currently no reports of chest pain, shortness of breath, or palpi tations. Patient is afebrile. No reports of nausea or vomiting and patient is tolerating diet. Patient will be going to [facility] the [facility] today. Physical exam: Gen: This is a 79-year-old female who is awake, alert and oriented x 3, well- developed, well-nourished, elderly appearing, obese HEENT: Head is atraumatic, normocephalic. Pupils equal, round. Sclerae is anicteric. NECK: Supple. No JVD. No lymphadenopathy. No thyromegaly. LUNGS: Diminished breath sounds bilaterally otherwise clear to auscultation. No wheezes or rhonchi. No intercostal retractions. HEART: S1, S2 are muffled ABDOMEN: Soft. Bowel sounds are present. No masses. No tenderness. EXTREMITIES: No pedal edema. No calf tenderness. NEUROLOGICAL: Patient is awake, alert and oriented x3. Cranial nerves 2 through 12 are grossly intact. Diffusely weak Please refer to medication reconciliation sheet for a list of medications. The impression and plan of care has been dictated by Nurse Bhumi Garcia as directed. Dr. Rosalba MD I have performed a history and examination and MDM of this patient, discussed the same with the dictator, and agree with the dictator's assessment and plan as written ,documented as a scribe. Based on total visit time, I have performed more than 50% of the visit. Patient Condition at Discharge: Fair Plan - Discharge Summary Discharge Rx Participant: Yes New Discharge Prescriptions: New Docusate [Colace] 100 mg PO BID cap Apixaban [Eliquis] 5 mg PO BID tab Simethicone Chew [Mylicon Chew] 120 mg PO TID PRN tab PRN Reason: Gi Upset Metoprolol Tartrate [Lopressor] 50 mg PO BID tab Ibuprofen [Motrin] 600 mg PO TID PRN tab PRN Reason: Pain Pantoprazole Sodium [Protonix] 40 mg PO DAILY #30 tab Continue Omeprazole [PriLOSEC] 20 mg PO Q48H Potassium Chloride [K-Tab ER] 10 meq PO DAILY Furosemide [Lasix] 20 mg PO BID Propafenone HCl 300 mg PO DAILY Albuterol Sulfate [Albuterol Sulfate Hfa] 2 puff PO RT-Q4H PRN PRN Reason: Shortness Of Breath Rosuvastatin [Crestor] 10 mg PO DAILY cefuroxime axetiL [Ceftin] 500 mg PO BID-W/MEALS #14 tab Meclizine [Antivert] 25 mg PO TID PRN PRN Reason: Vertigo Magnesium 250 mg PO DAILY Gabapentin [Neurontin] 100 mg PO DAILY Calcium Carbonate/Vitamin D3 [Calcium 500-Vit D3 5 Mcg (200 Iu)] 1 tab PO DAILY metroNIDAZOLE [Flagyl] 500 mg PO TID #21 tab Discontinued Metoprolol Tartrate [Lopressor] 25 mg PO BID #60 tab Dapagliflozin Propanediol [Farxiga] 10 mg PO DAILY Aspirin EC [Ecotrin Low Dose] 81 mg PO DAILY Ibuprofen [Motrin] 600 mg PO BID PRN PRN Reason: Pain Cholestyramine (with Sugar) [Questran Packet] 4 gm PO BID@1000,1800 #14 packet Discharge Medication List Omeprazole [PriLOSEC] 20 mg PO Q48H 02/05/15 [History] Potassium Chloride [K-Tab ER] 10 meq PO DAILY 09/01/16 [History] Furosemide [Lasix] 20 mg PO BID 06/02/20 [History] Meclizine [Antivert] 25 mg PO TID PRN 04/27/23 [History] Gabapentin [Neurontin] 100 mg PO DAILY 09/08/24 [History] Magnesium 250 mg PO DAILY 09/08/24 [History] Propafenone HCl 300 mg PO DAILY 09/08/24 [History] Albuterol Sulfate [Albuterol Sulfate Hfa] 2 puff PO RT-Q4H PRN 01/26/25 [History] Calcium Carbonate/Vitamin D3 [Calcium 500-Vit D3 5 Mcg (200 Iu)] 1 tab PO DAILY 01/26/25 [History] Rosuvastatin [Crestor] 10 mg PO DAILY 01/26/25 [History] cefuroxime axetiL [Ceftin] 500 mg PO BID-W/MEALS #14 tab 01/30/25 [Rx] metroNIDAZOLE [Flagyl] 500 mg PO TID #21 tab 01/30/25 [Rx] Apixaban [Eliquis] 5 mg PO BID tab 02/08/25 [Rx] Docusate [Colace] 100 mg PO BID cap 02/08/25 [Rx] Ibuprofen [Motrin] 600 mg PO TID PRN tab 02/08/25 [Rx] Metoprolol Tartrate [Lopressor] 50 mg PO BID tab 02/08/25 [Rx] Pantoprazole Sodium [Protonix] 40 mg PO DAILY #30 tab 02/08/25 [Rx] Simethicone Chew [Mylicon Chew] 120 mg PO TID PRN tab 02/08/25 [Rx] Follow up Appointment(s)/Referral(s): Alberto Koenig DO [Primary Care Provider] - 1-2 days Crhis Reese MD [STAFF PHYSICIAN] - 1 Week Activity/Diet/Wound Care/Special Instructions: Patient is going to [facility] Activity as tolerated Continue on antibiotics for 1 week Patient to continue current diet and slowly advance as tolerated Use Reglan as needed Follow-up with general surgery outpatient Follow-up with primary care provider on discharge Follow-up with cardiology outpatient Discharge Disposition: TRANSFER TO SNF/ECF
[2025-02-08 12:39] VITALS: BP 105/65; RESP 19; TEMP 98.3
[2025-02-08 13:19] VITALS: PULSE 67
--- NOTE | 2025-02-08 13:23 | P.PN ---
Subjective Progress Note Date: 02/08/25 SURGICAL PROGRESS NOTE CHIEF COMPLAINT: Ileus HISTORY OF PRESENT ILLNESS: Patient on regular medical floor. Tolerating diet. She is having bowel movements. Afebrile. WBC 11.26 Hgb 8.3 PHYSICAL EXAM: VITAL SIGNS: Reviewed. GENERAL: Well-developed in no acute distress. ABDOMEN: Soft. Nondistended. Nontender. NEUROLOGIC: Alert and oriented. Cranial nerves II through XII grossly intact. ASSESSMENT: 1. Resolving ileus PLAN: -Okay for discharge from surgical standpoint -Continue regular diet -Continue good bowel regimen Physician Educational Speech Language Clinician note has been reviewed by physician. Signing provider agrees with the documented findings, assessment, and plan of care. Objective - Vital Signs Vital signs: Vital Signs Temp 98.3 F 02/08/25 12:14 Pulse 66 02/08/25 12:14 Resp 19 02/08/25 12:14 BP 105/65 02/08/25 12:14 Pulse Ox 96 02/08/25 12:14 FiO2 Intake & Output 02/07/25 02/08/25 02/08/25 18:59 06:59 18:59 Intake Total 700 975 Output Total 400 1250 200 Balance 300 -275 -200 Intake: IV 400 675 Sodium Chloride 0.9% 1, 400 375 000 ml @ 50 mls/hr IV . Q20H ANGEL Rx#:[id number] cefTRIAXone 1 gm In 100 Sodium Chloride 0.9% 50 ml @ 100 mls/hr IVPB Q24H ANGEL Rx#:[id number] metroNIDAZOLE-NS PMX 500 200 mg In Saline 1 100ml.bag @ 100 mls/hr IVPB Q8H ANGEL Rx#:[id number] Intake, IV Titration 300 Amount Potassium Chloride 10 meq 200 In Water For Injection 1 100ml.bag @ 100 mls/hr IVPB Q1H ANGEL Rx#: [id number] metroNIDAZOLE-NS PMX 500 100 mg In Saline 1 100ml.bag @ 100 mls/hr IVPB Q8H ANGEL Rx#:[id number] Oral 300 Output: Urine 400 1250 200 Other: Voiding Method Ileal Conduit (Right) Ileal Conduit (Right) Ileal Conduit (Right) # Bowel Movements 2 2 - Labs CBC & Chem 7: 02/08/25 05:37 02/08/25 05:37 Labs: Abnormal Lab Results - Last 24 Hours (Table) 02/08/25 02/08/25 Range/Units 05:37 05:37 WBC 11.26 H (4.50-10.00) 10*3/uL RBC 3.54 L (4.10-5.20) 10*6/uL Hgb 8.3 L (12.0-15.0) g/dL Hct 27.6 L (37.2-46.3) % MCV 78.0 L (80.0-97.0) fL MCH 23.4 L (27.0-32.0) pg MCHC 30.1 L (32.0-37.0) g/dL MPV 9.1 L (9.5-12.2) fL Immature Gran # 0.23 H (0.00-0.04) 10*3/uL Neutrophils # 8.63 H (1.80-7.70) 10*3/uL Monocytes # 1.06 H (0.20-1.00) 10*3/uL Chloride 110 H (98-107) mmol/L Carbon Dioxide 20 L (22-30) mmol/L Glucose 105 H (74-99) mg/dL AST 12 L (14-36) U/L Total Protein 4.4 L (6.3-8.2) g/dL Albumin 2.0 L (3.5-5.0) g/dL
--- NOTE | 2025-02-09 07:54 | P.PN ---
Subjective Progress Note Date: 02/08/25 Hospital course: The patient, an 79-year-old female with a history of hypertension, dyslipidemia, SVT status post ablation, neuropathy, GERD, bladder cancer, and urostomy, was admitted on 01/2025 for abdominal discomfort and was diagnosed with colitis and a possible small bowel obstruction. She was discharged on 02/04/2025 but returned with worsening abdominal cramping and discomfort. On readmission, she was found to be in atrial fibrillation with RVR. A CT of the abdomen and chest revealed a dilated colon, fluid-filled small bowel loops, descending colon colitis, and residual ileus. She was admitted to the ICU for possible surgical management but is currently being managed conservatively with supportive care, tolerating a pure full liquid diet, and passing gas. No surgical intervention is planned at this time. Pertinent Vitals: Admission BP 134/65, HR 92. Pertinent cardiac Labs: 01/2025: Hb 10.5, WBC 10.4, BUN 21, [employer] 1.15 - Repeat hydration: [employer] 0.8, BUN 17. Cardiac home meds: Aspirin, Farxiga, Lasix 20 mg BID, Metoprolol 25 mg BID, Propafenone 300 mg eris y. Pertinent cardiac testing: - 01/2025: ECG showed atrial fibrillation with ventricular response. Telemetry shows atrial fibrillation with RVR with heart rate around 124 bpm 02/06/25: Patient seen and examined at bedside today. Patient converted to sinus rhythm last night and Cardizem drip was discontinued. No new complaints. BP 145/71, pulse rate 72 bpm WBC 12.69, hemoglobin 9.2, sodium 138, potassium 3.7, creatinine 0.76, magnesium 2.1, TSH 0.273, free T41.85, proBNP 2130, A1c 5.8 02/07/25: Patient evaluated at bedside today. Patient reports mild chest pressure today. Denies palpitations. Pulse 65 bpm, BP 96/61, SpO2 98% on 2 L of oxygen via nasal cannula wbc 11.45, hb 9.2, K 3.6, creatinine 0.76 Echocardiogram shows EF 55 to 60%, increased LV wall thickness, mild TR and mild MR 02/08 Patient has been transferred out of the intensive care unit and seen today on the [facility] floor. Patient denies having chest pain chest pressure, no shortness of breath no palpitations. She denies nausea vomiting or abdominal pain. She states she is on a regular diet and she has had bowel movements. She states she is scheduled for discharge to the residential today. Blood pressure 105/65, heart rate 66, pulse ox 96% on room air. Physical examination: Vital signs reviewed GENERAL: This is a 79-year-old overweight female HEENT: Head is atraumatic, normocephalic. LUNGS: CTA bilaterally, no wheezes, no rhonchi HEART: S1-S2 audible, no murmurs ABDOMEN: Soft, nontender, positive bowel sounds. EXTREMITIES: edema b/l LE that appears chronic NEURO: Alert, oriented. Gross neuro exam did not reveal any focal deficits Assessment: New onset paroxysmal atrial fibrillation with RVR, [id number] score 3, currently in sinus rhythm Partial small bowel obstruction with ileus. Descending colon colitis. Hypertension. History of SVT, status post ablation. Sick sinus syndrome, status post PPM. Dyslipidemia. Bladder cancer with urostomy. Plan: Continue current cardiac medications including Eliquis Patient may follow-up with Dr. Velasquez in 2 weeks. Nurse practitioner note has been reviewed, I agree with documented findings and plan of care. Patient was seen and examined. Objective - Vital Signs Vital signs: Vital Signs Temp 98.3 F 02/08/25 12:14 Pulse 66 02/08/25 12:14 Resp 19 02/08/25 12:14 BP 105/65 02/08/25 12:14 Pulse Ox 96 02/08/25 12:14 FiO2 Intake & Output 02/07/25 02/08/25 02/08/25 18:59 06:59 18:59 Intake Total 700 975 Output Total 400 1250 200 Balance 300 -275 -200 Intake: IV 400 675 Sodium Chloride 0.9% 1, 400 375 000 ml @ 50 mls/hr IV . Q20H [facility] Rx#:[id number] cefTRIAXone 1 gm In 100 Sodium Chloride 0.9% 50 ml @ 100 mls/hr IVPB Q24H [facility] Rx#:[id number] metroNIDAZOLE-NS PMX 500 200 mg In Saline 1 100ml.bag @ 100 mls/hr IVPB Q8H [facility] Rx#:[id number] Intake, IV Titration 300 Amount Potassium Chloride 10 meq 200 In Water For Injection 1 100ml.bag @ 100 mls/hr IVPB Q1H [facility] Rx#: [id number] metroNIDAZOLE-NS PMX 500 100 mg In Saline 1 100ml.bag @ 100 mls/hr IVPB Q8H [facility] Rx#:[id number] Oral 300 Output: Urine 400 1250 200 Other: Voiding Method Ileal Conduit (Right) Ileal Conduit (Right) Ileal Conduit (Right) # Bowel Movements 2 2 - Labs CBC & Chem 7: 02/08/25 05:37 02/08/25 05:37 Labs: Abnormal Lab Results - Last 24 Hours (Table) 02/08/25 02/08/25 Range/Units 05:37 05:37 WBC 11.26 H (4.50-10.00) 10*3/uL RBC 3.54 L (4.10-5.20) 10*6/uL Hgb 8.3 L (12.0-15.0) g/dL Hct 27.6 L (37.2-46.3) % MCV 78.0 L (80.0-97.0) fL MCH 23.4 L (27.0-32.0) pg MCHC 30.1 L (32.0-37.0) g/dL MPV 9.1 L (9.5-12.2) fL Immature Gran # 0.23 H (0.00-0.04) 10*3/uL Neutrophils # 8.63 H (1.80-7.70) 10*3/uL Monocytes # 1.06 H (0.20-1.00) 10*3/uL Chloride 110 H (98-107) mmol/L Carbon Dioxide 20 L (22-30) mmol/L Glucose 105 H (74-99) mg/dL AST 12 L (14-36) U/L Total Protein 4.4 L (6.3-8.2) g/dL Albumin 2.0 L (3.5-5.0) g/dL
== END 2025-02-08 15:25 | DRG 389 ==
LOC: EC 15:04 → 4SSUR 19:20 → 2SICU 02-05 05:45 → 5NMEDONC 02-08 08:01
PROVIDERS: ADMIT Hospitalist; ATTEND Hospitalist
PROC: 3E033RZ Introduction of Antiarrhythmic into Peripheral Vein, Percutaneous Approach (ICD-10-PCS; principal; 2025-02-05)
DX: K56.690 Other partial intestinal obstruction (principal); K59.39 Other megacolon; I49.5 Sick sinus syndrome; E78.5 Hyperlipidemia, unspecified; G62.9 Polyneuropathy, unspecified; I48.0 Paroxysmal atrial fibrillation; I10 Essential (primary) hypertension; Z93.6 Other artificial openings of urinary tract status; Z79.82 Long term (current) use of aspirin; Z85.51 Personal history of malignant neoplasm of bladder; Z79.84 Long term (current) use of oral hypoglycemic drugs; Z79.899 Other long term (current) drug therapy; Z87.891 Personal history of nicotine dependence; Z95.0 Presence of cardiac pacemaker; Z86.79 Personal history of other diseases of the circulatory system
CPT/HCPCS: 36415; 74177; 80048; 80053; 83036; 83735; 83880; 84132; 84439; 84443; 84484; 85025; 85027; 93005; 93306; 94640; 96361; 96374; 96376; 99285